=== PATIENT | female | born 1970 | race Caucasian/White ===

== ENCOUNTER 2016-12-09 06:22 | Day surgery (SDC) | payer MEDICARE, SELFPAY ==
[2016-12-09] MEDS ORDERED: Propofol 200 MG/20 ML SDV ONE (06:59)
[2016-12-09] MEDS ORDERED: Midazolam 1 MG/ML 2 ML SDV ONE ×2 (06:59→08:37)
[2016-12-09] MEDS ORDERED: fentaNYL 100 MCG/2 ML SDV ONE (06:59)
[2016-12-09] MEDS ORDERED: Dextrose 5%-Lactated Ringers 1,000 ML IV SCH (07:30)
[2016-12-09] MEDS ORDERED: Glycopyrrolate 0.2 MG/ML 2 ML SYRINGE IVPUSH ONE (08:00)
[2016-12-09] MEDS ORDERED: Ondansetron 4 MG/2 ML SDV ONE (08:37)
[2016-12-09] MEDS ORDERED: Pantoprazole 40 MG Vial IVPUSH ONE (09:00)
[2016-12-09 09:58] VITALS: BP 118/77
--- NOTE | 2016-12-11 10:50 | OR ---
DATE OF PROCEDURE: 12/09/2016 PREOPERATIVE DIAGNOSIS: Epigastric pain. POSTOPERATIVE DIAGNOSIS: Marked erosive gastritis. OPERATIVE PROCEDURE: Esophagogastroduodenoscopy with antral biopsies for CLOtest. ANESTHESIA: IV sedation. INDICATION FOR PROCEDURE: This is a 46-year-old female presenting with ongoing epigastric discomfort. She is status post previous Dima fundoplication. Recently, she has taken some [id number] Nexium, as well quite a bit in the way of Tums to try to control the symptoms. The plan is to proceed with upper GI endoscopy with biopsies as indicated. Potential risks including bleeding and perforation were discussed, and the patient wishes to proceed. DETAILS OF PROCEDURE: The patient was taken to the operating room and placed in a left lateral decubitus position. IV sedation was administered, after which the upper GI endoscope was passed orally through the length of the esophagus and the stomach with retroflexion view of the fundus, and thereafter through the pyloric channel and then to the junction of the third and fourth portions of the duodenum. The hypopharynx, larynx, and upper esophageal sphincter were unremarkable. The esophageal body was likewise normal with no dilation. The patient had an intact Dima fundoplication, and there was no gross inflammation at the esophagogastric junction. There was no stricturing or upward migration of the esophagogastric junction mucosal line. Within the stomach, the proximal stomach was unremarkable, other than for the Dima effect. However, as one passed the scope toward the antrum, the patient was noted to have quite intense gastritis. This included multiple erosions as well as 2 areas that were covered with fibrinous exudate measuring about 0.5 cm indicating these will be either large erosions or small superficial ulcers. The pyloric channel and visualized duodenum were unremarkable, other than for some mild duodenitis within the duodenal bulb. At this point, biopsies were obtained from the antrum and sent for CLOtest for H. pylori. Minimal bleeding from the biopsy sites was seen, and the procedure then concluded. There were no evident complications. The patient will be given Protonix 40 mg IV in the recovery room and then will be begun on Protonix 40 mg daily. She will be following up with Dr. Elkins in roughly 3 weeks. If the CLOtest comes back positive, we will contact the patient to initiate an anti-H. pylori regimen. Jasiel Chamorro MD /[id number]
== END 2016-12-09 10:15 | disposition home or self-care (01) ==
LOC: JP.SDS 06:22
PROVIDERS: ATTEND Surgery
DX: K29.60 Other gastritis without bleeding (principal); F41.9 Anxiety disorder, unspecified; F33.8 Other recurrent depressive disorders; Z98.890 Other specified postprocedural states; R73.03 Prediabetes; K90.89 Other intestinal malabsorption; E53.8 Deficiency of other specified B group vitamins; L30.9 Dermatitis, unspecified; G56.00 Carpal tunnel syndrome, unspecified upper limb; D64.9 Anemia, unspecified; G43.909 Migraine, unspecified, not intractable, without status migrainosus; Z87.442 Personal history of urinary calculi; Z90.710 Acquired absence of both cervix and uterus; Z90.49 Acquired absence of other specified parts of digestive tract; M47.897 Other spondylosis, lumbosacral region; Z79.899 Other long term (current) drug therapy
CPT/HCPCS: 43239; 87081; C9113; J2250; J2405; J2704; J3010; J7042

== ENCOUNTER 2017-06-22 22:13 | Emergency (ER) | payer MEDICARE, OTHER | END 2017-06-22 22:48 | disposition left against medical advice (07) | LOC: JP.ED 22:13 | DX: Z53.21 Procedure and treatment not carried out due to patient leaving prior to being seen by health care provider (principal) ==

== ENCOUNTER 2017-06-23 12:46 | Emergency (ER) | payer SELFPAY ==
[2017-06-23 13:37] VITALS: BP 136/79
--- NOTE | 2017-06-23 14:02 | EDM.PDOC ---
ED HPI GENERAL MEDICAL PROBLEM - General Chief Complaint: ENT Problem Stated Complaint: TOOTH PAIN Time Seen by Provider: 06/23/17 13:45 Source of Information: Reports: Patient History Limitations: Reports: No Limitations - History of Present Illness INITIAL COMMENTS - FREE TEXT/NARRATIVE: 46 yo female broke a tooth off early today. Called her dentist and his office is closed. Family doctor not available. Here for pain relief. No facial swelling or fever. 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) (OTC analgesia) Left Upper Tooth/Teeth Pain Score (Numeric/FACES): 8 - Related Data Allergies Allergy/AdvReac Type Severity Reaction Status Date / Time No Known Allergies Allergy Verified 06/23/17 13:38 Home Meds: Home Meds Citalopram [Citalopram Hbr] 10 mg PO DAILY 01/20/13 [History] Zolpidem [Ambien] 5 mg PO BEDTIME 01/26/14 [History] Lisinopril 10 mg PO DAILY 07/11/16 [History] Promethazine [Phenergan] 25 mg PO ASDIRECTED PRN 07/11/16 [History] SUMAtriptan Succinate [Imitrex] 100 mg PO ASDIRECTED 07/11/16 [History] Cyclobenzaprine HCl 5 mg PO DAILY 06/23/17 [History] Hydrocodone/Acetaminophen [[place] 5-325] 1 - 2 tab PO Q4H PRN #20 tablet [Rx] Pantoprazole 20 mg PO BIDAC 06/23/17 [History] Penicillin V Potassium 500 mg PO Q8HR #30 tab 06/23/17 [Rx] Past Medical History Cardiovascular History: Reports: Hypertension Gastrointestinal History: Reports: Cholelithiasis, GERD Genitourinary History: Reports: Renal Calculus 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: Reports: 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 Neurological History: Reports: Migraines Psychiatric History: Reports: Addiction, Anxiety, Depression Hematologic History: Reports: Blood Transfusion(s) - Infectious Disease History Infectious Disease History: Reports: Chicken Pox - Past Surgical History HEENT Surgical History: Reports: Tonsillectomy GI Surgical History: Reports: Cholecystectomy, EGD, Esophageal Dilatation, Dima Fundoplication Other GI Surgeries/Procedures: [place] Social & Family History - Family History Family Medical History: Noncontributory - Tobacco Use Smoking Status *Q: Current Every Day Smoker Years of Tobacco use: 7 Packs/Tins Daily: 0.5 Used Tobacco, but Quit: No Second Hand Smoke Exposure: No - Caffeine Use Caffeine Use: Reports: Soda - Alcohol Use Days Per Week of Alcohol Use: 1 Number of Drinks Per Day: 2 Total Drinks Per Week: 2 - Recreational Drug Use Recreational Drug Use: Yes Recreational Drug Type: Reports: Other (see below) Recreational Drug Use Frequency: Not Used In Over 2 Months ED ROS ENT - Review of Systems Review Of Systems: See Below Constitutional: Reports: No Symptoms HEENT: Reports: Dental Pain Respiratory: Reports: No Symptoms Cardiovascular: Reports: No Symptoms Skin: Reports: No Symptoms Neurological: Reports: No Symptoms ED EXAM, ENT - Physical Exam Exam: See Below Exam Limited By: No Limitations General Appearance: Alert, WD/WN, No Apparent Distress Eye Exam: Bilateral Eye: Normal Inspection Ears: Normal External Exam, Normal Canal Nose: Normal Inspection Mouth/Throat: Normal Inspection, Normal Lips, Normal Oropharynx, Dental Pain, Dental Tenderness, Dental Trauma (broken, decayed ). No: Gum Swelling, Lip Swelling, Pharyngeal Erythema, Teething, Throat Pain, Throat Swelling Head: Atraumatic, Normocephalic Neck: Normal Inspection, Supple, Non-Tender. No: Lymphadenopathy (R), Lymphadenopathy (L) Neurological: Alert, Oriented, CN II-XII Intact, Normal Cognition, No Motor/ Sensory Deficits Psychiatric: Normal Affect, Normal Mood Skin: Warm, Dry, Intact, Normal Color, No Rash Lymphatic: No Adenopathy Course - Vital Signs Last Recorded V/S: Last Vital Signs Temp 36.1 C 06/23/17 13:33 Pulse 95 06/23/17 13:33 Resp 16 06/23/17 13:33 BP 136/79 06/23/17 13:33 Pulse Ox 99 06/23/17 13:33 Departure - Departure Time of Disposition: 14:01 Disposition: Home, Self-Care 01 Condition: Good Clinical Impression: Dental caries, Dental caries extending into dentin, Pain, dental - Discharge Information Prescriptions: Penicillin V Potassium 500 mg PO Q8HR #30 tab Hydrocodone/Acetaminophen [Grandin 5-325] 1 - 2 tab PO Q4H PRN #20 tablet PRN Reason: Pain Referrals: Jon Elkins MD [Primary Care Provider] - Forms: ED Department Discharge Additional Instructions: Take Penicillin as directed until gone. Take ibuprofen 400 mg every 6 hrs with food for pain relief. Add either acetaminophen or Grandin for added pain relief. See your dentist malena. If you run out of pain medicine before your dentist appt , then see your family doctor for refills.
== END 2017-06-23 14:25 | disposition home or self-care (01) ==
LOC: JP.ED 12:46
DX: K02.9 Dental caries, unspecified (principal); I10 Essential (primary) hypertension; K21.9 Gastro-esophageal reflux disease without esophagitis; F17.210 Nicotine dependence, cigarettes, uncomplicated; Z79.899 Other long term (current) drug therapy
CPT/HCPCS: 99283

== ENCOUNTER 2017-07-16 16:43 | Emergency (ER) | payer SELFPAY ==
[2017-07-16 16:59] VITALS: BP 139/94
[2017-07-16] MEDS ORDERED: Acetaminophen/HYDROcodone 325-5 MG Tab PO ONE (18:16)
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
--- NOTE | 2017-07-17 10:53 | CR ---
Hand Comp Min 3V Lt INDICATION: trauma lt 4th 5th fingers COMPARISON: None FINDINGS: 3 views. No fracture, dislocation, or other acute bony abnormality. No joint space narr owing.
== END 2017-07-16 18:37 | disposition home or self-care (01) ==
LOC: JP.ED 16:43
DX: S60.042A Contusion of left ring finger without damage to nail, initial encounter (principal); S60.052A Contusion of left little finger without damage to nail, initial encounter; I10 Essential (primary) hypertension; K21.9 Gastro-esophageal reflux disease without esophagitis; F32.9 Major depressive disorder, single episode, unspecified; F41.9 Anxiety disorder, unspecified; F17.210 Nicotine dependence, cigarettes, uncomplicated; W23.0XXA Caught, crushed, jammed, or pinched between moving objects, initial encounter; Z79.899 Other long term (current) drug therapy; Z87.442 Personal history of urinary calculi
CPT/HCPCS: 73130; 99284; A9270

== ENCOUNTER 2017-09-27 21:28 | Emergency (ER) | payer SELFPAY ==
[2017-09-27 21:39] VITALS: BP 133/96
[2017-09-27] MEDS ORDERED: Ketorolac 30 MG/ML SDV IVPUSH ONE (21:53)
[2017-09-27] MEDS ORDERED: diphenhydrAMINE 50 MG/ML SDV IVPUSH ONE (21:53)
[2017-09-27] MEDS ORDERED: Lactated Ringers 1,000 ML IV ONE (21:53)
[2017-09-27] MEDS ORDERED: Prochlorperazine 10 MG/2 ML SDV IVPUSH ONE (21:54)
--- NOTE | 2017-09-27 22:00 | EDM.PDOC ---
ED HPI GENERAL MEDICAL PROBLEM - General Chief Complaint: Headache Stated Complaint: MIGRAINE Time Seen by Provider: 09/27/17 21:45 Source of Information: Reports: Patient, Old Records, RN History Limitations: Reports: No Limitations - History of Present Illness INITIAL COMMENTS - FREE TEXT/NARRATIVE: 47 yo female presents with a NANCE x 3 days. Has a pHx of migraine. Took Imitrex without relief. Has more nausea/vomiting with this NANCE than with most. No fever, head injury, or neuro deficits. No hematemesis. Also has R low back pain not associated with either injury, or dysuria. Has a pHx of kidney stones and this feels similar. Onset Date: 09/24/17 (Came on about as fast as her usual migraines.) Duration: Day(s): (3), Constant Location: Reports: Head, Back (R lower back) Quality: Reports: Ache Severity: Severe (Headache is severe, back pain moderate.) Improves with: Reports: None Worsens with: Reports: None Context: Reports: Other (Hx of migraine, kidney stones) Associated Symptoms: Reports: Headaches, Nausea/Vomiting. 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(s) (Imitrex 100 mg without relief.) Frontal Headache Pain Score (Numeric/FACES): 8 - Related Data Allergies Allergy/AdvReac Type Severity Reaction Status Date / Time No Known Allergies Allergy Verified 09/27/17 21:45 Home Meds: Home Meds Citalopram [Citalopram Hbr] 10 mg PO DAILY 01/20/13 [History] Zolpidem [Ambien] 5 mg PO BEDTIME 01/26/14 [History] Lisinopril 10 mg PO DAILY 07/11/16 [History] Promethazine [Phenergan] 25 mg PO ASDIRECTED PRN 07/11/16 [History] SUMAtriptan Succinate [Imitrex] 100 mg PO ASDIRECTED 07/11/16 [History] Pantoprazole 20 mg PO BIDAC 06/23/17 [History] Past Medical History Cardiovascular History: Reports: Hypertension Gastrointestinal History: Reports: Cholelithiasis, GERD Genitourinary History: Reports: Renal Calculus 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 Neurological History: Reports: Migraines Psychiatric History: Reports: Addiction, Anxiety, Depression Hematologic History: Reports: Blood Transfusion(s) - Infectious Disease History Infectious Disease History: Reports: Chicken Pox - Past Surgical History HEENT Surgical History: Reports: Tonsillectomy GI Surgical History: Reports: Cholecystectomy, EGD, Esophageal Dilatation, Dima Fundoplication Other GI Surgeries/Procedures: Nessin Social & Family History - Family History Family Medical History: Noncontributory - Tobacco Use Smoking Status *Q: Unknown Ever Smoked - Caffeine Use Caffeine Use: Reports: Coffee - Recreational Drug Use Recreational Drug Use: No ED ROS GENERAL - Review of Systems Review Of Systems: See Below Constitutional: Reports: No Symptoms HEENT: Reports: No Symptoms Respiratory: Reports: No Symptoms Cardiovascular: Reports: No Symptoms Endocrine: Reports: No Symptoms GI/Abdominal: Reports: Nausea, Vomiting. Denies: Black Stool, Bloody Stool, Constipation, Diarrhea, Distension, Melena : Reports: No Symptoms Musculoskeletal: Reports: Back Pain (R low back pain) Neurological: Reports: Headache. Denies: Numbness, Paresthesia, Syncope, Tingling, Trouble Speaking, Difficulty Walking, Weakness, Change in Speech, Gait Disturbance Psychiatric: Reports: No Symptoms - Physical Exam Exam: See Below Exam Limited By: No Limitations General Appearance: Alert, WD/WN, Mild Distress Eye Exam: Bilateral Eye: Normal Inspection, PERRL Ears: Normal External Exam, Normal Canal, Hearing Grossly Normal Nose: Normal Inspection, Normal Mucosa, No Blood Throat/Mouth: Normal Inspection, Normal Lips, Normal Oropharynx, Normal Voice, No Airway Compromise Head Exam: Atraumatic, Normocephalic Neck: Normal Inspection, Supple, Non-Tender Respiratory/Chest: No Respiratory Distress, Lungs Clear, Normal Breath Sounds, No Accessory Muscle Use Cardiovascular: Regular Rate, Rhythm, No Edema GI/Abdominal: Normal Bowel Sounds, Soft, Non-Tender, No Distention Neuro Exam (Abbreviated): Alert, Oriented, CN II-XII Intact, Normal Cognition, No Motor/Sensory Deficits Back Exam: Normal Inspection, Paraspinal Tenderness (R lumbar region.). No: CVA Tenderness (R), CVA Tenderness (L) Extremities: Normal Inspection, Normal Range of Motion, Non-Tender Psychiatric: Normal Affect, Normal Mood Skin Exam: Warm, Dry, Intact, Normal Color, No Rash Course - Vital Signs Text/Narrative:: Nausea gone, NANCE mostly gone after treatment. Wants to go home. Will call a friend for a ride. Last Recorded V/S: Last Vital Signs Temp 36.9 C 09/27/17 21:42 Pulse 95 09/27/17 21:42 Resp 16 09/27/17 21:42 BP 133/96 H 09/27/17 21:42 Pulse Ox 98 09/27/17 21:42 - Orders/Labs/Meds Orders: Active Orders 24 hr Category Date Time Status UA W/MICROSCOPIC [URIN] Stat Lab 09/27/17 21:54 Ordered Meds: Medications Discontinued Medications Generic Name Dose Route Start Last Admin Trade Name Freq PRN Reason Stop Dose Admin Diphenhydramine HCl 25 mg 09/27/17 21:53 09/27/17 22:13 Benadryl IVPUSH 09/27/17 21:54 25 mg ONETIME ONE Administration Lactated Ringer's 1,000 mls @ 1,000 mls/hr 09/27/17 21:53 09/27/17 22:05 Ringers, Lactated IV 09/27/17 22:52 1,000 mls/hr BOLUS ONE Administration Ketorolac Tromethamine 30 mg 09/27/17 21:53 09/27/17 22:10 Toradol IVPUSH 09/27/17 21:54 30 mg ONETIME ONE Administration Prochlorperazine Edisylate 10 mg 09/27/17 21:54 09/27/17 22:07 Compazine IVPUSH 09/27/17 21:55 10 mg ONETIME ONE Administration Departure - Departure Time of Disposition: 23:05 Disposition: Home, Self-Care 01 Condition: Good Clinical Impression: Migraine - Discharge Information Referrals: Jon Elkins MD [Primary Care Provider] - Forms: ED Department Discharge - My Orders Last 24 Hours: My Active Orders 09/27/17 21:54 UA W/MICROSCOPIC [URIN] Stat - Assessment/Plan Last 24 Hours: My Active Orders 09/27/17 21:54 UA W/MICROSCOPIC [URIN] Stat
== END 2017-09-27 23:06 | disposition home or self-care (01) ==
LOC: JP.ED 21:28
DX: G43.909 Migraine, unspecified, not intractable, without status migrainosus (principal); I10 Essential (primary) hypertension; Z79.899 Other long term (current) drug therapy
CPT/HCPCS: 81001; 96361; 96374; 96375; 99284; J0780; J1200; J1885; J7120

== ENCOUNTER 2018-01-14 23:57 | Emergency (ER) | payer SELFPAY ==
[2018-01-15 00:34] VITALS: BP 124/92
[2018-01-15] MEDS ORDERED: HYDROmorphone 1 MG/ML Syringe IM ONE (00:40)
--- NOTE | 2018-01-15 00:46 | EDM.PDOC ---
ED HPI GENERAL MEDICAL PROBLEM - General Chief Complaint: General Stated Complaint: BROKEN TEETH TOP LEFT AND RIGHT Time Seen by Provider: 01/15/18 00:35 Source of Information: Reports: Patient, RN Notes Reviewed History Limitations: Reports: No Limitations - History of Present Illness INITIAL COMMENTS - FREE TEXT/NARRATIVE: 47-year-old female presents emergency department today following trauma at home she slipped in her bathroom and hit her front teeth breaking 3 of them she does not have any of the teeth with her her biggest issue is pain Tooth/Teeth Pain Score (Numeric/FACES): 8 - Related Data Allergies Allergy/AdvReac Type Severity Reaction Status Date / Time No Known Allergies Allergy Verified 01/15/18 00:25 Home Meds: Home Meds Citalopram [Citalopram Hbr] 20 mg PO DAILY 01/20/13 [History] Zolpidem [Ambien] 5 mg PO BEDTIME 01/26/14 [History] Lisinopril 10 mg PO DAILY 07/11/16 [History] Promethazine [Phenergan] 25 mg PO ASDIRECTED PRN 07/11/16 [History] SUMAtriptan Succinate [Imitrex] 100 mg PO ASDIRECTED 07/11/16 [History] Past Medical History HEENT History: Reports: Impaired Vision Cardiovascular History: Reports: Hypertension Gastrointestinal History: Reports: Cholelithiasis, GERD Genitourinary History: Reports: Renal Calculus 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 Neurological History: Reports: Migraines Psychiatric History: Reports: Addiction, Anxiety, Depression Hematologic History: Reports: Blood Transfusion(s) - Infectious Disease History Infectious Disease History: Reports: Chicken Pox - Past Surgical History HEENT Surgical History: Reports: Tonsillectomy GI Surgical History: Reports: Cholecystectomy, EGD, Esophageal Dilatation, Dima Fundoplication Other GI Surgeries/Procedures: Nessin Female Surgical History: Reports: Hysterectomy, Salpingo-Oophorectomy Social & Family History - Family History Family Medical History: Noncontributory - Tobacco Use Smoking Status *Q: Current Every Day Smoker Years of Tobacco use: 15 Packs/Tins Daily: 0.3 - Caffeine Use Caffeine Use: Reports: None - Recreational Drug Use Recreational Drug Use: No ED ROS GENERAL - Review of Systems Review Of Systems: See Below Constitutional: Reports: No Symptoms HEENT: Reports: Dental Pain ED EXAM, GENERAL - Physical Exam Exam: See Below Free Text/Narrative:: Mouth mucosa is moist and pink no erythema or exudate noted in soft palate tongue is midline uvula is midline she does have dental trauma broken teeth 01/29 Exam Limited By: No Limitations General Appearance: Alert, WD/WN, No Apparent Distress Throat/Mouth: No Airway Compromise Respiratory/Chest: No Respiratory Distress Course - Vital Signs Last Recorded V/S: Last Vital Signs Temp 96.8 F 01/15/18 00:34 Pulse 124 H 01/15/18 00:34 Resp 18 01/15/18 00:34 BP 124/92 H 01/15/18 00:34 Pulse Ox 98 01/15/18 00:34 - Orders/Labs/Meds Orders: Active Orders 24 hr Category Date Time Status HYDROmorphone [Dilaudid] Med 01/15/18 00:40 Once 1 mg IM ONETIME ONE Departure - Departure Time of Disposition: 00:44 Disposition: Home, Self-Care 01 Condition: Fair Clinical Impression: Broken teeth Qualifiers: Encounter type: initial encounter Fracture type: open Qualified Code(s): S02.5XXB - Fracture of tooth (traumatic), initial encounter for open fracture - Discharge Information Referrals: Jon Elkins MD [Primary Care Provider] - Additional Instructions: Please contact dentistry in the morning, start the prophylactic antibiotics of Augmentin, use Percocet as needed for pain control - My Orders Last 24 Hours: My Active Orders 01/15/18 00:40 HYDROmorphone [Dilaudid] 1 mg IM ONETIME ONE - Assessment/Plan Last 24 Hours: My Active Orders 01/15/18 00:40 HYDROmorphone [Dilaudid] 1 mg IM ONETIME ONE Plan: Assessment Acuity = acute Site and laterality = dental trauma teeth 01/29/11 Etiology = secondary to a fall Manifestations = none Location of injury = Home Lab values = none Plan Given 1 mg Dilaudid IM followed by prescription for Percocet 5/325 one tablet by mouth every 6 hours when necessary total #10 she will contact her dentist in the morning also placed on prophylactic antibiotics Augmentin 875 by mouth twice a day 7 days, she will contact dentistry in the morning This note was dictated using [employer] voice recognition software please call with any questions on syntax or grammar.
== END 2018-01-15 00:55 | disposition home or self-care (01) ==
LOC: JP.ED 23:57
DX: S02.5XXB Fracture of tooth (traumatic), initial encounter for open fracture (principal); Z79.899 Other long term (current) drug therapy; F17.210 Nicotine dependence, cigarettes, uncomplicated; W01.10XA Fall on same level from slipping, tripping and stumbling with subsequent striking against unspecified object, initial encounter; Y92.002 Bathroom of unspecified non-institutional (private) residence as the place of occurrence of the external cause
CPT/HCPCS: 96372; 99283; J1170

== ENCOUNTER 2018-02-11 15:50 | Emergency (ER) | payer OTHER ==
[2018-02-11 16:12] VITALS: BP 119/88
--- NOTE | 2018-02-11 16:40 | EDM.PDOC ---
ED HPI GENERAL MEDICAL PROBLEM - General Chief Complaint: ENT Problem Time Seen by Provider: 02/11/18 16:06 Source of Information: Reports: Patient History Limitations: Reports: No Limitations - History of Present Illness INITIAL COMMENTS - FREE TEXT/NARRATIVE: 47 yo presents with front upper tooth pain. She has had multiple cavities and broken teeth for many months and pain worsening. pt states she has been unable to afford dental care needed. She has been alternating tyl and ibuprofen without relief of pain. She denies fever or chills. - Related Data Allergies Allergy/AdvReac Type Severity Reaction Status Date / Time No Known Allergies Allergy Verified 01/15/18 00:25 Home Meds: Home Meds Citalopram [Citalopram Hbr] 20 mg PO DAILY 01/20/13 [History] Zolpidem [Ambien] 5 mg PO BEDTIME 01/26/14 [History] Lisinopril 10 mg PO DAILY 07/11/16 [History] Promethazine [Phenergan] 25 mg PO ASDIRECTED PRN 07/11/16 [History] SUMAtriptan Succinate [Imitrex] 100 mg PO ASDIRECTED 07/11/16 [History] Past Medical History HEENT History: Reports: Impaired Vision Cardiovascular History: Reports: Hypertension Gastrointestinal History: Reports: Cholelithiasis, GERD Genitourinary History: Reports: Renal Calculus 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: 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 Neurological History: Reports: Migraines Psychiatric History: Reports: Addiction, Anxiety, Depression Hematologic History: Reports: Blood Transfusion(s) - Infectious Disease History Infectious Disease History: Reports: Chicken Pox - Past Surgical History HEENT Surgical History: Reports: Tonsillectomy GI Surgical History: Reports: Cholecystectomy, EGD, Esophageal Dilatation, Dima Fundoplication Other GI Surgeries/Procedures: Nessin Female Surgical History: Reports: Hysterectomy, Salpingo-Oophorectomy Social & Family History - Family History Family Medical History: Noncontributory - Tobacco Use Smoking Status *Q: Current Every Day Smoker Years of Tobacco use: 15 Packs/Tins Daily: 0.5 - Caffeine Use Caffeine Use: Reports: None ED ROS ENT - Review of Systems Review Of Systems: See Below Constitutional: Denies: Fever, Chills, Fatigue HEENT: Reports: Dental Pain Respiratory: Denies: Shortness of Breath, Wheezing Cardiovascular: Denies: Chest Pain ED EXAM, ENT - Physical Exam Exam: See Below Exam Limited By: No Limitations General Appearance: Alert, WD/WN, No Apparent Distress Ears: Normal External Exam, Normal Canal, Hearing Grossly Normal, Normal TMs Nose: Normal Inspection, Normal Mucousa Mouth/Throat: Dental Pain, Dental Tenderness, Other (extensive dental caries with broken from upper teeth, mild erythema and edema, gingivitis) Head: Atraumatic, Normocephalic Neck: Supple, Lymphadenopathy (R), Lymphadenopathy (L) Respiratory/Chest: No Respiratory Distress Course - Vital Signs Last Recorded V/S: Last Vital Signs Temp 35.8 C 02/11/18 16:11 Pulse 85 02/11/18 16:11 Resp 14 02/11/18 16:11 BP 119/88 02/11/18 16:11 Pulse Ox 98 02/11/18 16:11 - Re-Assessments/Exams Free Text/Narrative Re-Assessment/Exam: 02/11/18 16:43 pt refused Ketoralac injection. pt given information to contact [facility] dentist. Pt refuses referral to [facility] dentistry. VERTICA ARCHITECT ran on pt and placed in chart Departure - Departure Time of Disposition: 16:35 Disposition: Home, Self-Care 01 Condition: Fair Clinical Impression: Dental caries Broken teeth Qualifiers: Encounter type: subsequent encounter Fracture type: closed Fracture healing: with delayed healing Qualified Code(s): S02.5XXG - Fracture of tooth (traumatic) , subsequent encounter for fracture with delayed healing - Discharge Information *PRESCRIPTION DRUG MONITORING PROGRAM REVIEWED*: Yes *COPY OF PRESCRIPTION DRUG MONITORING REPORT IN PATIENT CHACHO: Yes Referrals: Jon Elkins MD [Primary Care Provider] - Additional Instructions: You need to see a dentist [facility] may be able to offer you help [place] as needed for severe pain Amoxicillin 500 mg twice daily for 10 days (she has antibiotic at home) Ibuprofen 400-600 mg every 6 hours for inflammation reduction
== END 2018-02-11 16:51 | disposition home or self-care (01) ==
LOC: JP.ED 15:50
DX: K02.9 Dental caries, unspecified (principal); S02.5XXG Fracture of tooth (traumatic), subsequent encounter for fracture with delayed healing; F17.210 Nicotine dependence, cigarettes, uncomplicated; Z79.899 Other long term (current) drug therapy; X58.XXXD Exposure to other specified factors, subsequent encounter
CPT/HCPCS: 99283

== ENCOUNTER 2018-07-06 15:33 | Emergency (ER) | payer OTHER ==
[2018-07-06 15:46] VITALS: BP 142/105
--- NOTE | 2018-07-06 16:30 | EDM.PDOC ---
ED HPI GENERAL MEDICAL PROBLEM - General Chief Complaint: ENT Problem Stated Complaint: TOOTH ACHE Time Seen by Provider: 07/06/18 16:29 Source of Information: Reports: Patient History Limitations: Reports: No Limitations - History of Present Illness INITIAL COMMENTS - FREE TEXT/NARRATIVE: pt arrived with pain in the rt lower gum line. She has had a tooth extracted about 1 month ago. She now has another tooth which is cracked and needs to be extracted. She has multiple carrious teeth/ Onset: Other (pt has been having pain for several days. ) Duration: Hour(s): Location: Reports: Face Associated Symptoms: Reports: No Other Symptoms - Related Data Allergies Allergy/AdvReac Type Severity Reaction Status Date / Time No Known Allergies Allergy Verified 07/06/18 15:46 Home Meds: Home Meds Citalopram [Citalopram Hbr] 20 mg PO DAILY 01/20/13 [History] Zolpidem [Ambien] 5 mg PO BEDTIME 01/26/14 [History] Lisinopril 10 mg PO DAILY 07/11/16 [History] SUMAtriptan Succinate [Imitrex] 100 mg PO ASDIRECTED 07/11/16 [History] Amoxicillin 500 mg PO TID 05/14/18 [History] Hydrocodone/Acetaminophen [Hydrocodon-Acetaminophen 5-325] 07/06/18 [History] Past Medical History HEENT History: Reports: Impaired Vision Cardiovascular History: Reports: Hypertension Gastrointestinal History: Reports: Cholelithiasis, GERD Genitourinary History: Reports: Renal Calculus 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 Neurological History: Reports: Migraines Psychiatric History: Reports: Addiction, Anxiety, Depression Hematologic History: Reports: Blood Transfusion(s) - Infectious Disease History Infectious Disease History: Reports: Chicken Pox - Past Surgical History HEENT Surgical History: Reports: Oral Surgery, Tonsillectomy Cardiovascular Surgical History: Reports: None GI Surgical History: Reports: Cholecystectomy, EGD, Esophageal Dilatation, Dima Fundoplication Other GI Surgeries/Procedures: Nessin Female Surgical History: Reports: Hysterectomy, Salpingo-Oophorectomy Neurological Surgical History: Reports: None Social & Family History - Family History Family Medical History: Noncontributory - Tobacco Use Smoking Status *Q: Current Every Day Smoker Years of Tobacco use: 30 Packs/Tins Daily: 0.2 - Caffeine Use Caffeine Use: Reports: Soda ED ROS ENT - Review of Systems Review Of Systems: See Below Constitutional: Reports: No Symptoms HEENT: Reports: Dental Pain Respiratory: Reports: No Symptoms Cardiovascular: Reports: No Symptoms Endocrine: Reports: No Symptoms GI/Abdominal: Reports: No Symptoms : Reports: No Symptoms ED EXAM, ENT - Physical Exam Exam: See Below Text/Narrative:: pt is having severe dental pain in the rt lower gum line. She has a tooth that is cracked to the root. Exam Limited By: No Limitations General Appearance: Alert, Severe Distress Ears: Normal External Exam Nose: Normal Inspection Mouth/Throat: Other ( several carrious teeth in the rt lower gum line. ) Head: Atraumatic Neck: Normal Inspection Course - Vital Signs Last Recorded V/S: Last Vital Signs Temp 35.8 C 07/06/18 15:51 Pulse 115 H 07/06/18 15:51 Resp 16 07/06/18 15:51 BP 142/105 H 07/06/18 15:51 Pulse Ox 98 07/06/18 15:51 Departure - Departure Time of Disposition: 16:29 Disposition: Home, Self-Care 01 Condition: Fair Clinical Impression: Pain, dental - Discharge Information Referrals: Jon Elkins MD [Primary Care Provider] - Forms: ED Department Discharge Care Plan Goals: Try to get in earlier to the oral surgeonjosseline 5/325 q6h prn for pain.
== END 2018-07-06 16:37 | disposition home or self-care (01) ==
LOC: JP.ED 15:33
DX: K08.89 Other specified disorders of teeth and supporting structures (principal); I10 Essential (primary) hypertension; F41.9 Anxiety disorder, unspecified; F32.9 Major depressive disorder, single episode, unspecified; F17.210 Nicotine dependence, cigarettes, uncomplicated; Z79.899 Other long term (current) drug therapy
CPT/HCPCS: 99283

== ENCOUNTER 2018-07-28 14:22 | Emergency (ER) | payer OTHER ==
--- NOTE | 2018-07-28 14:53 | EDM.PDOC ---
ED HPI GENERAL MEDICAL PROBLEM - General Chief Complaint: ENT Problem Stated Complaint: JAW PAIN Time Seen by Provider: 07/28/18 14:44 Source of Information: Reports: Patient, RN Notes Reviewed History Limitations: Reports: No Limitations - History of Present Illness INITIAL COMMENTS - FREE TEXT/NARRATIVE: 48-year-old female presents to the emergency department day complaint of jaw pain with facial swelling she has been undergoing some dental surgery with tooth extraction has had difficulty with infection on the right side of her lower jaw, she is set to follow-up with dentistry on Monday of this week was prescribed hydrocodone and clindamycin unfortunately she could not afford the clindamycin Right Lower Jaw Pain Score (Numeric/FACES): 7 - Related Data Allergies Allergy/AdvReac Type Severity Reaction Status Date / Time No Known Allergies Allergy Verified 07/28/18 14:33 Home Meds: Home Meds Citalopram [Citalopram Hbr] 20 mg PO DAILY 01/20/13 [History] Zolpidem [Ambien] 5 mg PO BEDTIME 01/26/14 [History] Lisinopril 10 mg PO DAILY 07/11/16 [History] SUMAtriptan Succinate [Imitrex] 100 mg PO ASDIRECTED 07/11/16 [History] Amoxicillin 500 mg PO TID 05/14/18 [History] Hydrocodone/Acetaminophen [Hydrocodon-Acetaminophen 5-325] 1 tab PO DAILY PRN [History] Past Medical History HEENT History: Reports: Impaired Vision, Other (See Below) Other HEENT History: dental surgery Cardiovascular History: Reports: Hypertension Gastrointestinal History: Reports: Cholelithiasis, GERD Genitourinary History: Reports: Renal Calculus 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 Neurological History: Reports: Migraines Psychiatric History: Reports: Addiction, Anxiety, Depression Hematologic History: Reports: Blood Transfusion(s) - Infectious Disease History Infectious Disease History: Reports: Chicken Pox - Past Surgical History Head Surgeries/Procedures: Reports: None HEENT Surgical History: Reports: Oral Surgery, Tonsillectomy Cardiovascular Surgical History: Reports: None GI Surgical History: Reports: Cholecystectomy, EGD, Esophageal Dilatation, Dima Fundoplication Other GI Surgeries/Procedures: Nessin Female Surgical History: Reports: Hysterectomy, Salpingo-Oophorectomy Neurological Surgical History: Reports: None Dermatological Surgical History: Reports: None Social & Family History - Family History Family Medical History: Noncontributory - Tobacco Use Smoking Status *Q: Current Every Day Smoker Years of Tobacco use: 20 Packs/Tins Daily: 0.5 - Caffeine Use Caffeine Use: Reports: Soda - Recreational Drug Use Recreational Drug Use: No ED ROS ENT - Review of Systems Review Of Systems: See Below Constitutional: Denies: Fever, Chills HEENT: Reports: Dental Pain, Other (Facial pain and swelling) ED EXAM, ENT - Physical Exam Exam: See Below Text/Narrative:: Mouth mucosa is moist and pink dentition is poor she does have a broken tooth # 27 there is tenderness around this area as well as facial swelling lower jaw Exam Limited By: No Limitations General Appearance: Alert, WD/WN, No Apparent Distress Neck: Normal Inspection, Supple, Non-Tender, Full Range of Motion Course - Vital Signs Last Recorded V/S: Last Vital Signs Temp 97.2 F 07/28/18 14:38 Pulse 111 H 07/28/18 14:38 Resp 16 07/28/18 14:38 BP 138/99 H 07/28/18 14:38 Pulse Ox 97 07/28/18 14:38 Departure - Departure Time of Disposition: 14:52 Disposition: Home, Self-Care 01 Condition: Fair Clinical Impression: Pain, dental, Dental abscess - Discharge Information Referrals: Jon Elkins MD [Primary Care Provider] - Additional Instructions: Take full course of antibiotics, use hydrocodone as needed for pain control, please contact your dentist on Monday, call return to the emergency department worsening of symptoms - Assessment/Plan Plan: Assessment Acuity = acute Site and laterality = dental abscess Etiology = tooth fracture Manifestations = pain, edema Location of injury = Home Lab values = none Plan Prescription written for Augmentin 875 by mouth twice a day 10 days, hydrocodone 5/325 one tab by mouth every 4-6 hours when necessary total #10 she will contact her dentist in the Monday This note was dictated using TEXbase voice recognition software please call with any questions on syntax or grammar.
[2018-07-28 15:19] VITALS: BP 138/99
== END 2018-07-28 15:03 | disposition home or self-care (01) ==
LOC: JP.ED 14:22
DX: K04.7 Periapical abscess without sinus (principal); I10 Essential (primary) hypertension; K21.9 Gastro-esophageal reflux disease without esophagitis; F17.210 Nicotine dependence, cigarettes, uncomplicated; Z79.899 Other long term (current) drug therapy
CPT/HCPCS: 99283

== ENCOUNTER 2018-09-28 13:11 | Emergency (ER) | payer OTHER, SELFPAY ==
[2018-09-28 14:57] VITALS: BP 120/87
[2018-09-28] MEDS: Bupivacaine 0.5%/EPINEPHrine 1:200,000 1.8 ML Cartridge INJECT ONE (15:20)
--- NOTE | 2018-09-28 15:22 | EDM.PDOC ---
ED HPI GENERAL MEDICAL PROBLEM - General Chief Complaint: General Stated Complaint: TOOTHACHE Time Seen by Provider: 09/28/18 15:00 Source of Information: Reports: Patient History Limitations: Reports: No Limitations - History of Present Illness INITIAL COMMENTS - FREE TEXT/NARRATIVE: Patient present with concerns regarding right upper anterior tooth pain. Tooth pain started today after biting into sandwich and has progressively worsened. Pain as a constant pressure and stabling pain that worsens with eating, chewing , hot or cold exposure. Patient admits to foul taste or drainage from painful tooth/teeth. Patient has not noted any facial swelling and along the gum line. Patient is concerned regarding a chip in the effected tooth. Patient has attempted to contacted a dentist for follow-up appointment in the near future. She is working with a dentist to pull nuerous teeth as she can afford the treatment and planning to obtain dentures. Patient does have a dentist appointment. Patient has taken any tylenol 1,000mg and Ibuprofen 400 mg OTC some medications to help with pain and/or swelling. The OTC medications minimally improved symptoms. Patient denies any fever, chills, sweats, and shortness of breath, difficulty breathing or swallowing, chest pain, diarrhea, constipation. No pain or burning with urination. No upper respiratory tract symptoms. She is very tearful regarding her oral health. She states the pain radiated into her right frontal sinus which is worse with exertional activities. 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 - Related Data Allergies Allergy/AdvReac Type Severity Reaction Status Date / Time No Known Allergies Allergy Verified 07/28/18 14:33 Home Meds: Home Meds Citalopram [Citalopram Hbr] 20 mg PO DAILY 01/20/13 [History] Zolpidem [Ambien] 5 mg PO BEDTIME 01/26/14 [History] Lisinopril 10 mg PO DAILY 07/11/16 [History] SUMAtriptan Succinate [Imitrex] 100 mg PO ASDIRECTED 07/11/16 [History] Acetaminophen/HYDROcodone [Harrison 325-5 MG] 1 - 2 tab PO Q6H PRN 3 Days #6 tab [Rx] Amoxicillin 500 mg PO TID 10 Days #30 capsule 09/28/18 [Rx] Naproxen [Naprosyn] 500 mg PO Q8HR PRN #30 tablet 09/28/18 [Rx] Past Medical History HEENT History: Reports: Impaired Vision, Other (See Below) Other HEENT History: dental surgery Cardiovascular History: Reports: Hypertension Gastrointestinal History: Reports: Cholelithiasis, GERD Genitourinary History: Reports: Renal Calculus 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 Neurological History: Reports: Migraines Psychiatric History: Reports: Addiction, Anxiety, Depression Hematologic History: Reports: Blood Transfusion(s) - Infectious Disease History Infectious Disease History: Reports: Chicken Pox - Past Surgical History Head Surgeries/Procedures: Reports: None HEENT Surgical History: Reports: Oral Surgery, Tonsillectomy Cardiovascular Surgical History: Reports: None GI Surgical History: Reports: Cholecystectomy, EGD, Esophageal Dilatation, Dima Fundoplication Other GI Surgeries/Procedures: Nessin Female Surgical History: Reports: Hysterectomy, Salpingo-Oophorectomy Neurological Surgical History: Reports: None Dermatological Surgical History: Reports: None Social & Family History - Family History Family Medical History: Noncontributory - Tobacco Use Smoking Status *Q: Current Every Day Smoker Years of Tobacco use: 8 Packs/Tins Daily: 0.2 Used Tobacco, but Quit: No Second Hand Smoke Exposure: No - Caffeine Use Caffeine Use: Reports: Soda - Recreational Drug Use Recreational Drug Use: No ED ROS GENERAL - Review of Systems Review Of Systems: ROS reveals no pertinent complaints other than HPI. ED EXAM, GENERAL - Physical Exam Exam: See Below Exam Limited By: No Limitations General Appearance: Alert Throat/Mouth: Normal Inspection, Normal Lips, Normal Gums, Normal Oropharynx, Normal Voice, Other (poor oral health with nuerous chipped and unhealth teeth. Right anterior superior incisor/permolar is painful with slight gigival swelling and erythema. No palpation abscess noted ). No: Normal Teeth (Female) Exam: Deferred Rectal (Female) Exam: Deferred Extremities: Normal Inspection, Normal Range of Motion Psychiatric: Normal Affect, Normal Mood, Tearful ED GENERAL MEDICAL PROCEDURES - Additional/Other Procedure(s) Other (Free Text) Procedure(s): ER Procedures: Risks, benefits, complications and alternatives (including doing nothing) regarding this procedure were discussed. Patient understood these , voiced understanding, and wished to proceed. Time out completed to ensure correct procedure on the correct patient and correct site. Apical UPPER ANTERIOR NERVE BLOCK Rightside Local apical block was performed with 0.5% Bupivacaine: Total volume 1.8 cc. Landmarks palpated 30 gauge needle used to place anesthetic. Patient tolerated well was offered water to swish and swallow without difficulty. Patient was monitored in the department for 15-30 minutes. Patient had no adverse reactions and pain is improved at time of discharge. Course - Vital Signs Last Recorded V/S: Last Vital Signs Temp 36.1 C 09/28/18 14:44 Pulse 110 H 09/28/18 14:44 Resp 16 09/28/18 14:44 BP 120/87 09/28/18 14:44 Pulse Ox - Orders/Labs/Meds Meds: Medications Discontinued Medications Generic Name Dose Route Start Last Admin Trade Name Freq PRN Reason Stop Dose Admin Bupivacaine HCl/Epinephrine Bitart 1.8 ml 09/28/18 15:14 09/28/18 15:20 Marcaine 0.5%/Epinephrine 1:200,000 INJECT 09/28/18 15:15 1.8 ml ONETIME ONE Administration Departure - Departure Time of Disposition: 15:11 Disposition: Home, Self-Care 01 Condition: Good Clinical Impression: Pain, dental - Discharge Information Prescriptions: Naproxen [Naprosyn] 500 mg PO Q8HR PRN #30 tablet PRN Reason: Pain Acetaminophen/HYDROcodone [Harrison 325-5 MG] 1 - 2 tab PO Q6H PRN 3 Days #6 tab PRN Reason: Pain (Severe 7-10) Amoxicillin 500 mg PO TID 10 Days #30 capsule Instructions: Dental Abscess, [id number] Referrals: Jon Elkins MD [Primary Care Provider] - Forms: ED Department Discharge Additional Instructions: Dentist of choice Care Plan Goals: DENTAL 1. ANITBIOTIC DIRECTED. Antibiotics (Amoxicillin/PCN or Clindamycin). 2. IBUPROFEN or NAPROXEN WITH FOOD DIRECTED FOR INFLAMMATION, PAIN AND SWELLING. 3. BUPIVACAINE DENTAL BLOCK WILL LAST UP TO 48 HOURS AND MAY NOT COME BACK IF TAKING ANTIBIOTIC AND IBUPROFEN/NAPROXEN. 4. Senodyne tooth paste every 30minutes to help with pain. 5. Tylenol (Acetaminophen) every 6-8 hours for mild to moderate pain 6. CALL YOUR DENTIST OF CHOICE FOR AVAILABLE APPOINTMENT. IF YOU DO NOT HAVE A DENTIST, YOU WILL BE GIVEN THE PHONE NUMBER FOR LOCAL ACTIVATED SLUDGE OPERATOR DENTIST. 7. Return for repeat evaluation if increase, changes, new or worsen symptoms. Discharge Instructions Dental Pain You have been seen today for a toothache. Your pain may be caused by an exposed nerve, an infection (pulpitis), a root abscess (pocket of pus), or other problems. You will need to see a dentist for a solution to your tooth problem. Emergency Department care is only to help control your problem until you can see a dentist; we cannot provide complete dental care. Today, we did not find any sign that your toothache was caused by any dangerous or life-threatening condition, but sometimes symptoms develop over time and cannot be found during an emergency visit, so it is very important that you follow up with your dentist. Please follow-up as instructed by your provider today. Return to the clinic or Local Emergency Department if: You develop a new fever over 100.4F. You cannot open your mouth normally, cannot move your tongue well, or cannot swallow. You have new or increased swelling of your face or neck. You develop drainage of pus or foul smelling material from around your tooth. What can I do to help myself? Take any antibiotic the provider may have prescribed for you today. Avoid very hot or very cold foods as both can cause pain. Make an appointment to see a dentist as soon as possible. Dentists are generally not on-staff at hospitals so we cannot refer to you to dentist but we may be able to provide a list of dental clinics to help you. If you were given a prescription for medicine here today, be sure toread all of the information (including the package insert) that comes with your prescription. This will include important information about the medicine, its side effects, and any warnings that you need to know about. The pharmacist who fills the prescription can provide more information and answer questions you may have about the medicine. If you have questions or concerns that the pharmacist cannot address, please call or return to the Emergency Department. Remember that you can always come back to the Emergency Department if you are not able to see your regular provider in the amount of time listed above, if you get any new symptoms, or if there is anything that worries you. - Problem List & Annotations (1) Pain, dental SNOMED Code(s): 58268422 Code(s): K08.89 - OTHER SPECIFIED DISORDERS OF TEETH AND SUPPORTING STRUCTURES Status: Resolved Onset Date: ~09/28/18 - Problem List Review Problem List Initiated/Reviewed/Updated: Yes
== END 2018-09-28 15:56 | disposition home or self-care (01) ==
LOC: JP.ED 13:11
DX: K08.89 Other specified disorders of teeth and supporting structures (principal); I10 Essential (primary) hypertension; F41.9 Anxiety disorder, unspecified; F32.9 Major depressive disorder, single episode, unspecified; K21.9 Gastro-esophageal reflux disease without esophagitis; F17.210 Nicotine dependence, cigarettes, uncomplicated; Z79.899 Other long term (current) drug therapy
CPT/HCPCS: 64400; 99282; J3490

== ENCOUNTER 2018-12-04 06:53 | Day surgery (SDC) | payer MEDICARE, OTHER, SELFPAY ==
[2018-12-04] MEDS ORDERED: Propofol 200 MG/20 ML SDV ONE (06:58)
[2018-12-04] MEDS ORDERED: fentaNYL 100 MCG/2 ML SDV ONE (06:58)
[2018-12-04] MEDS ORDERED: Midazolam 1 MG/ML 2 ML SDV ONE (06:58)
[2018-12-04] MEDS ORDERED: Dextrose 5%-Lactated Ringers 1,000 ML IV SCH (07:15)
[2018-12-04] MEDS ORDERED: Glycopyrrolate 0.2 MG/ML 2 ML SDV IVPUSH ONE (07:15)
[2018-12-04] MEDS ORDERED: Pantoprazole 40 MG Vial IVPUSH ONE (09:14)
[2018-12-04 09:22] VITALS: BP 87/58; PULSE 102
--- NOTE | 2018-12-10 11:37 | OR ---
DATE OF PROCEDURE: 12/04/2018 PREOPERATIVE DIAGNOSES: 1. Nausea and dysphagia status post previous Dima fundoplication. 2. Loose bowel movements or diarrhea after eating with occasional blood in stool. POSTOPERATIVE DIAGNOSES: 1. Intact Dima fundoplication with no evident esophageal inflammation or stricturing. 2. Mild antral gastritis and duodenitis. 3. Normal colonoscopic examination. OPERATIVE PROCEDURE: 1. Esophagogastroduodenoscopy with antral biopsies for CLOtest. 2. Flexible colonoscopy with collection of stool for microbiologic workup. ANESTHESIA: IV sedation. INDICATION FOR PROCEDURE: The patient presents with some intermittent nausea and reported vomiting along with some dysphagia. She suffered status post previous Dima fundoplication. She also complains of some diarrhea type symptoms with some intermittent blood in her stool but the diarrhea seeming to be starting up after eating. Plan is to proceed with an upper and lower endoscopy with biopsies and a polypectomy as indicated as well as possible esophageal dilation. Potential risks of the procedure including bleeding and perforation were discussed, and the patient wishes to proceed. DETAILS OF PROCEDURE: The patient was taken to the operating room and placed in a left lateral decubitus position. IV sedation was administered after which the upper GI endoscope was passed orally through the length of the esophagus and the stomach with retroflexion view of the fundus and thereafter through the pyloric channel into the junction of the third and fourth portions of the duodenum. Findings included a normal hypopharynx, larynx, upper esophageal sphincter, esophageal body, and at the EG junction, the patient had an intact Dima. The area of passing through the Dima fundoplication was quite wide open, and there was no significant gross inflammation of the distal esophagus. The level of the esophagogastric junction was 40 cm from the incisors indicating no recurrence of a hiatal hernia. Within the stomach, retroflexion confirmed appropriate appearing Dima effect. Within the antrum, there was some patchy redness, but no erosions or ulcers, and the visualized pyloric channel and duodenum were otherwise unremarkable. At this point, biopsies were obtained from the antrum and sent for CLOtest for H. pylori. Minimal bleeding from the biopsy sites was seen, and the scope was then withdrawn. Attention was then taken to the colonoscopy. Initial digital rectal exam was performed and was unremarkable. Colonoscope was passed into the rectum. The patient had normal appearing hemorrhoidal columns. The scope was then eventually passed to the cecum. There was only a scant amount of liquid stool present. The stool was collected and sent for microbiologic workup. Otherwise, there were no abnormalities in terms of no diverticular disease. No areas of colitis. No polyps or other signs of neoplasia. Scope was then withdrawn. Procedure then concluded. The plan will be to start the patient on Protonix 40 mg a day and also Zofran 4 mg ODT, #30 with 1 refill. Dose of Zofran to be taken on a p.r.n. basis, and the patient should be following up with Dr. Elkins in about 2 weeks. If the patient continues to have the postprandial loose bowel movements, this may be a dumping syndrome related to the Dima fundoplication, and dietary consultation might be helpful at that point. Jasiel Chamorro MD /[id number]
== END 2018-12-04 10:15 | disposition home or self-care (01) ==
LOC: JP.SDS 06:53
PROVIDERS: ATTEND Surgery
DX: K29.01 Acute gastritis with bleeding (principal); K29.81 Duodenitis with bleeding; K64.9 Unspecified hemorrhoids; R19.7 Diarrhea, unspecified; R13.10 Dysphagia, unspecified; K21.9 Gastro-esophageal reflux disease without esophagitis; F17.200 Nicotine dependence, unspecified, uncomplicated; F41.9 Anxiety disorder, unspecified; F32.9 Major depressive disorder, single episode, unspecified; Z98.890 Other specified postprocedural states
CPT/HCPCS: 43239; 45378; 87046; 87081; 87177; 87209; 87493; 87899; 89055; C9113; J2250; J2704; J3010; J3490; J7042

== ENCOUNTER 2018-12-15 13:55 | Emergency (ER) | payer OTHER ==
[2018-12-15 15:08] VITALS: BP 108/73; PULSE 89
[2018-12-15] MEDS ORDERED: Bupivacaine 0.5%/EPINEPHrine 1:200,000 1.8 ML Cartridge INJECT ONE (15:25)
--- NOTE | 2018-12-15 15:29 | EDM.PDOC ---
ED HPI GENERAL MEDICAL PROBLEM - General Stated Complaint: TOOTHACHE Time Seen by Provider: 12/15/18 15:20 Source of Information: Reports: Patient History Limitations: Reports: No Limitations - History of Present Illness INITIAL COMMENTS - FREE TEXT/NARRATIVE: Gabriela is a 48 year old female, presents to the ED today with left upper tooth pain, unrelieved with Ibuprofen and Tylenol at home, left message with dentist, no recent antibiotics, food/chewing makes pain worse. Denies any systemic symptoms. Long hx of overall poor dentition. Onset: Today, Sudden tooth Pain Score (Numeric/FACES): 7 - Related Data Allergies Allergy/AdvReac Type Severity Reaction Status Date / Time No Known Allergies Allergy Verified 12/15/18 15:36 Home Meds: Home Meds Citalopram [Citalopram Hbr] 40 mg PO DAILY 01/20/13 [History] Zolpidem [Ambien] 10 mg PO BEDTIME 01/26/14 [History] Lisinopril 10 mg PO DAILY 07/11/16 [History] SUMAtriptan Succinate [Imitrex] 100 mg PO ASDIRECTED 07/11/16 [History] Past Medical History HEENT History: Reports: Impaired Vision, Other (See Below) Other HEENT History: dental surgery Cardiovascular History: Reports: Hypertension Gastrointestinal History: Reports: Cholelithiasis, GERD Genitourinary History: Reports: Renal Calculus [employer] History: Reports: 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, Neurological History: Reports: Migraines Psychiatric History: Reports: Addiction, Anxiety, Depression Hematologic History: Reports: Blood Transfusion(s) - Infectious Disease History Infectious Disease History: Reports: Chicken Pox - Past Surgical History Head Surgeries/Procedures: Reports: None HEENT Surgical History: Reports: Oral Surgery, Tonsillectomy Cardiovascular Surgical History: Reports: None GI Surgical History: Reports: Cholecystectomy, EGD, Esophageal Dilatation, Dima Fundoplication Other GI Surgeries/Procedures: Nessin Female Surgical History: Reports: Hysterectomy, Salpingo-Oophorectomy Neurological Surgical History: Reports: None Dermatological Surgical History: Reports: None Social & Family History - Family History Family Medical History: Noncontributory - Caffeine Use Caffeine Use: Reports: Coffee ED ROS ENT - Review of Systems Review Of Systems: ROS reveals no pertinent complaints other than HPI. ED EXAM, ENT - Physical Exam Exam: See Below Exam Limited By: No Limitations General Appearance: Alert, WD/WN, No Apparent Distress Mouth/Throat: Dental Pain, Gum Swelling (mild, no abscess formation), Other ( left upper canine) Head: Atraumatic Neck: Normal Inspection, Supple, Non-Tender. No: Lymphadenopathy (R), Lymphadenopathy (L) Respiratory/Chest: No Respiratory Distress Cardiovascular: Normal Peripheral Pulses Extremities: Normal Inspection Neurological: Alert, Oriented, CN II-XII Intact Psychiatric: Normal Affect, Normal Mood Skin: Warm, Dry, Intact Course - Vital Signs Last Recorded V/S: Last Vital Signs Temp 36.6 C 12/15/18 15:05 Pulse 89 12/15/18 15:05 Resp 13 12/15/18 15:05 BP 108/73 12/15/18 15:05 Pulse Ox 100 12/15/18 15:05 Dental abscess, no fluctuance that requires I and D. Dental block done after obtaining patient verbal consent tolerated well. Start Amoxicillin. Ibuprofen for pain, [place] for severe pain, narcotic safety and side effects discussed. Dentist on Monday Patient discharged in stable condition. - Orders/Labs/Meds Meds: Medications Discontinued Medications Generic Name Dose Route Start Last Admin Trade Name Ernesto PRN Reason Stop Dose Admin Bupivacaine HCl/Epinephrine Bitart 1.8 ml 12/15/18 15:25 Marcaine 0.5%/Epinephrine 1:200,000 INJECT 12/15/18 15:26 ONETIME ONE Departure - Departure Time of Disposition: 16:00 Disposition: Home, Self-Care 01 Condition: Good Clinical Impression: Dental caries, Pain, dental - Discharge Information Instructions: Dental Abscess, [id number] Referrals: Jon Elkins MD [Primary Care Provider] - Additional Instructions: Start Amoxicillin tonight. Get into dentist on Monday
== END 2018-12-15 15:48 | disposition home or self-care (01) ==
LOC: JP.ED 13:55
DX: K04.7 Periapical abscess without sinus (principal); I10 Essential (primary) hypertension; F41.9 Anxiety disorder, unspecified; F32.9 Major depressive disorder, single episode, unspecified; Z79.899 Other long term (current) drug therapy
CPT/HCPCS: 64400; 99282; J3490; 99283

== ENCOUNTER 2019-03-09 16:28 | Emergency (ER) | payer SELFPAY ==
[2019-03-09 16:38] VITALS: BP 142/99; PULSE 113
[2019-03-09] MEDS ORDERED: Bupivacaine 0.5%/EPINEPHrine 1:200,000 1.8 ML Cartridge INJECT ONE (16:43)
[2019-03-09] MEDS ORDERED: Albuterol/Ipratropium 3.0-0.5 MG/3 ML Neb Soln NEB ONE (16:55)
--- NOTE | 2019-03-09 17:01 | EDM.PDOC ---
ED HPI GENERAL MEDICAL PROBLEM - General Chief Complaint: General Stated Complaint: BROKEN TOOTH Time Seen by Provider: 03/09/19 16:30 Source of Information: Reports: Patient History Limitations: Reports: No Limitations - History of Present Illness INITIAL COMMENTS - FREE TEXT/NARRATIVE: Gabriela is a 48 year old female, hx of poor dentition who presents to the ED today with left lower broken molar that occurred prior to arrival. Patient c/o pain to area unrelieved with Tylenol/Ibuprofen. Patient also has frequent harsh productive cough with rhonchi on LLL on exam. She c/o URI symptoms for the last few days, doesn't think she has had a fever, difficulty sleeping secondary to cough. Patient smokes but hasn't for 2 days. Patient has been busy with family as [id number] just last evening. Patient last saw dentist in November. Onset: Today, Sudden Left Lower Jaw Pain Score (Numeric/FACES): 6 - Related Data Allergies Allergy/AdvReac Type Severity Reaction Status Date / Time No Known Allergies Allergy Verified 03/09/19 16:38 Home Meds: Home Meds Citalopram [Citalopram Hbr] 40 mg PO DAILY 01/20/13 [History] Zolpidem [Ambien] 10 mg PO BEDTIME 01/26/14 [History] Lisinopril 10 mg PO DAILY 07/11/16 [History] SUMAtriptan Succinate [Imitrex] 100 mg PO ASDIRECTED 07/11/16 [History] Past Medical History HEENT History: Reports: Impaired Vision, Other (See Below) Other HEENT History: dental surgery Cardiovascular History: Reports: Hypertension Gastrointestinal History: Reports: Cholelithiasis, GERD Genitourinary History: Reports: Renal Calculus [employer] History: Reports: 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, Neurological History: Reports: Migraines Psychiatric History: Reports: Addiction, Anxiety, Depression Hematologic History: Reports: Blood Transfusion(s) - Infectious Disease History Infectious Disease History: Reports: Chicken Pox - Past Surgical History Head Surgeries/Procedures: Reports: None HEENT Surgical History: Reports: Oral Surgery, Tonsillectomy Cardiovascular Surgical History: Reports: None GI Surgical History: Reports: Cholecystectomy, EGD, Esophageal Dilatation, Dima Fundoplication Other GI Surgeries/Procedures: Nessin Female Surgical History: Reports: Hysterectomy, Salpingo-Oophorectomy Neurological Surgical History: Reports: None Dermatological Surgical History: Reports: None Social & Family History - Family History Family Medical History: Noncontributory - Tobacco Use Smoking Status *Q: Current Every Day Smoker Years of Tobacco use: 8 Packs/Tins Daily: 0.5 Used Tobacco, but Quit: No - Caffeine Use Caffeine Use: Reports: Coffee - Recreational Drug Use Recreational Drug Use: No ED ROS GENERAL - Review of Systems Review Of Systems: ROS reveals no pertinent complaints other than HPI. ED EXAM, GENERAL - Physical Exam Exam: See Below Exam Limited By: No Limitations General Appearance: Alert, WD/WN, Mild Distress Eye Exam: Bilateral Eye: EOMI, PERRL Ears: Normal External Exam Throat/Mouth: Normal Inspection, Other (broken left lower molar, overall poor dentition, no abscess formation, no signs of elton's angina) Head: Atraumatic Neck: Normal Inspection, Supple, Non-Tender Respiratory/Chest: Rhonchi (LLL), Wheezing (expiratory with frequent harsh productive cough) Cardiovascular: No Murmur, Tachycardia Extremities: Normal Inspection Neurological: Alert, Oriented Psychiatric: Anxious Skin Exam: Warm, Dry Lymphatic: No Adenopathy ED GENERAL MEDICAL PROCEDURES - Additional/Other Procedure(s) Other (Free Text) Procedure(s): Dental block to left inferior alveolar space with 1.8 ml of bupivacaine with no complications, patient tolerated well Course - Vital Signs Last Recorded V/S: Last Vital Signs Temp 37.1 C 03/09/19 16:39 Pulse 113 H 03/09/19 16:39 Resp 16 03/09/19 16:39 BP 142/99 H 03/09/19 16:39 Pulse Ox 97 03/09/19 16:39 Gabriela is a 48 year old female who presents to the ED today with c/o broken left lower molar that occurred prior to arrival. Please refer to HPI and focused exam. Tooth number 18 affected, no abscess formation that requires I and D. Dental block done as noted in procedure note, patient tolerated well. Patient also with frequent harsh productive cough, LLL rhonchi and expiratory wheeze, given Duo Neb here with improvement in wheezing. I am going to start patient on Amoxicillin for dental infection prophylaxis which should also treat any bacterial component that may be present from her current respiratory infection. Patient encouraged to continue with Ibuprofen for dental pain, I have prescribed her Donna for severe pain, narcotic safety and side effects discussed. Tessalon Prateek prescribed for cough, Albuterol inhaler as needed for shortness of breath wheezing. I did recommend she purchase some DenTek over the counter to seal the broken area of affected tooth and prevent nerve exposure which should help with the pain. Patient to follow up with primary dentist this week. Follow up with clinic if URI symptoms not improving. Reasons to return to the ED discussed in detail. Patient is agreeable to plan of care and discharged in stable condition. - Orders/Labs/Meds Orders: Active Orders 24 hr Category Date Time Status RT Aerosol Therapy [RC] ASDIRECTED Care 03/09/19 16:55 Ordered Albuterol/Ipratropium [DuoNeb 3.0-0.5 MG/3 ML] Med 03/09/19 16:55 Once 3 ml NEB ONETIME ONE Meds: Medications Discontinued Medications Generic Name Dose Route Start Last Admin Trade Name Freq PRN Reason Stop Dose Admin Bupivacaine HCl/Epinephrine Bitart 1.8 ml 03/09/19 16:43 Marcaine 0.5%/Epinephrine 1:200,000 INJECT 03/09/19 16:44 ONETIME ONE Departure - Departure Time of Disposition: 17:30 Disposition: Home, Self-Care 01 Condition: Fair Clinical Impression: URI, acute Broken tooth Qualifiers: Encounter type: initial encounter Fracture type: closed Qualified Code(s): S02.5XXA - Fracture of tooth (traumatic), initial encounter for closed fracture - Discharge Information Instructions: Upper Respiratory Infection, Adult, [id number] Referrals: Jon Elkins MD [Primary Care Provider] - Additional Instructions: Gabriela, Please follow up with your dentist this week. Try to find some Den Kiko, this is over the counter at most stores in the [facility] [place]. This will help cover the nerves exposed on affected tooth. Start amoxicillin today and take as prescribed. Ibuprofen for pain, if this isn't effective I did give you Donna, a narcotic, do not drive if you take this. Albuterol inhaler for wheezing/sob. Tessalon for cough as needed. Stay well hydrated. I am sorry to hear about your [id number], please take care and don't forget to take care of yourself! - My Orders Last 24 Hours: My Active Orders 03/09/19 16:55 RT Aerosol Therapy [RC] ASDIRECTED Albuterol/Ipratropium [DuoNeb 3.0-0.5 MG/3 ML] 3 ml NEB ONETIME ONE - Assessment/Plan Last 24 Hours: My Active Orders 03/09/19 16:55 RT Aerosol Therapy [RC] ASDIRECTED Albuterol/Ipratropium [DuoNeb 3.0-0.5 MG/3 ML] 3 ml NEB ONETIME ONE
== END 2019-03-09 17:22 | disposition home or self-care (01) ==
LOC: JP.ED 16:28
DX: K03.81 Cracked tooth (principal); J06.9 Acute upper respiratory infection, unspecified; I10 Essential (primary) hypertension; F32.9 Major depressive disorder, single episode, unspecified; F17.210 Nicotine dependence, cigarettes, uncomplicated; Z79.899 Other long term (current) drug therapy
CPT/HCPCS: 64400; 94640; 99283; J3490; J7620-GY

== ENCOUNTER 2019-06-26 16:19 | Emergency (ER) | payer OTHER ==
[2019-06-26 17:21] VITALS: BP 108/75; PULSE 122
--- NOTE | 2019-06-26 18:20 | EDM.PDOC ---
ED HPI GENERAL MEDICAL PROBLEM - General Chief Complaint: General Stated Complaint: FEVER,COUGH Time Seen by Provider: 06/26/19 18:14 Source of Information: Reports: Patient, Old Records, RN Notes Reviewed History Limitations: Reports: No Limitations - History of Present Illness INITIAL COMMENTS - FREE TEXT/NARRATIVE: 48-year-old female presents emergency department today complaint of fever and cough, she did not get a flu shot this year she has been ill for about 48 hours she does have poor dentition she is noticed some thick purulent drainage coming from an upper portion of her tooth on the right side. She states she does not qualify for the community dentist and she could not get into her current dentist until she pays her outstanding balance Middle Face/Facial Pain Score (Numeric/FACES): 8 - Related Data Allergies Allergy/AdvReac Type Severity Reaction Status Date / Time No Known Allergies Allergy Verified 03/09/19 16:38 Home Meds: Home Meds Citalopram [Citalopram Hbr] 40 mg PO DAILY 01/20/13 [History] Zolpidem [Ambien] 10 mg PO BEDTIME 01/26/14 [History] Lisinopril 10 mg PO DAILY 07/11/16 [History] Albuterol Sulfate [Albuterol Sulfate Hfa] 8.5 gm IH TID 06/26/19 [History] Benzonatate 200 mg PO TID 06/26/19 [History] Past Medical History HEENT History: Reports: Impaired Vision, Other (See Below) Other HEENT History: dental surgery Cardiovascular History: Reports: Hypertension Gastrointestinal History: Reports: Cholelithiasis, GERD Genitourinary History: Reports: Renal Calculus [employer] History: Reports: 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, Neurological History: Reports: Migraines Psychiatric History: Reports: Addiction, Anxiety, Depression Hematologic History: Reports: Blood Transfusion(s) - Infectious Disease History Infectious Disease History: Reports: Chicken Pox - Past Surgical History Head Surgeries/Procedures: Reports: None HEENT Surgical History: Reports: Oral Surgery, Tonsillectomy Cardiovascular Surgical History: Reports: None GI Surgical History: Reports: Cholecystectomy, EGD, Esophageal Dilatation, Dima Fundoplication Other GI Surgeries/Procedures: Nessin Female Surgical History: Reports: Hysterectomy, Salpingo-Oophorectomy Neurological Surgical History: Reports: None Dermatological Surgical History: Reports: None Social & Family History - Family History Family Medical History: Noncontributory - Tobacco Use Smoking Status *Q: Current Every Day Smoker Years of Tobacco use: 12 Packs/Tins Daily: 0.5 - Caffeine Use Caffeine Use: Reports: Coffee, Soda - Recreational Drug Use Recreational Drug Use: No ED ROS GENERAL - Review of Systems Review Of Systems: See Below Constitutional: Reports: Fever, Chills HEENT: Reports: Dental Pain, Other (Dental drainage) Respiratory: Reports: Cough. Denies: Shortness of Breath, Sputum Cardiovascular: Reports: No Symptoms GI/Abdominal: Reports: No Symptoms : Reports: No Symptoms Musculoskeletal: Reports: No Symptoms ED EXAM, GENERAL - Physical Exam Exam: See Below Exam Limited By: No Limitations General Appearance: Alert, WD/WN, No Apparent Distress Eye Exam: Bilateral Eye: Normal Inspection Nose: Normal Inspection, Normal Mucosa, No Blood Throat/Mouth: Normal Inspection, Other (Dentition is poor there is tenderness around tooth #8) Head: Atraumatic, Normocephalic Neck: Normal Inspection, Supple, Non-Tender, Full Range of Motion Respiratory/Chest: No Respiratory Distress, Lungs Clear, Normal Breath Sounds, No Accessory Muscle Use, Chest Non-Tender Cardiovascular: Regular Rate, Rhythm, No Murmur GI/Abdominal: Soft, Non-Tender Course - Vital Signs Last Recorded V/S: Last Vital Signs Temp 97.7 F 06/26/19 18:11 Pulse 122 H 06/26/19 18:11 Resp 16 06/26/19 18:11 BP 108/75 06/26/19 18:11 Pulse Ox 98 06/26/19 18:11 - Orders/Labs/Meds Orders: Active Orders 24 hr Category Date Time Status Ketorolac [Toradol] Med 06/26/19 19:43 Once 60 mg IM ONETIME ONE Labs: Laboratory Tests 06/26/19 06/26/19 Range/Units 18:24 18:24 WBC 4.1 L (4.5-11.0) K/uL RBC 3.19 L (3.30-5.50) M/uL Hgb 10.9 L D (12.0-15.0) g/dL Hct 34.3 L (36.0-48.0) % MCV 108 H (80-98) fL MCH 34 H (27-31) pg MCHC 32 (32-36) % Plt Count 297 (150-400) K/uL Neut % (Auto) 68 H (36-66) % Lymph % (Auto) 18 L (24-44) % [place] % (Auto) 12 H (2-6) % Eos % (Auto) 1 L (2-4) % Baso % (Auto) 1 (0-1) % Sodium 144 (140-148) mmol/L Potassium 3.0 L (3.6-5.2) mmol/L Chloride 107 (100-108) mmol/L Carbon Dioxide 23 (21-32) mmol/L Anion Gap 17.0 H (5.0-14.0) mmol/L BUN 17 (7-18) mg/dL Creatinine 0.8 (0.6-1.0) mg/dL Est Cr Clr Drug Dosing 77.38 mL/min Estimated GFR (MDRD) > 60 (>60) Glucose 113 H (74-106) mg/dL Calcium 8.4 L (8.5-10.1) mg/dL Total Bilirubin 0.2 D (0.2-1.0) mg/dL AST 29 (15-37) U/L ALT 35 (12-78) U/L Alkaline Phosphatase 65 (46-116) U/L Total Protein 7.3 (6.4-8.2) g/dL Albumin 3.7 (3.4-5.0) g/dL Globulin 3.6 H (2.3-3.5) g/dL Albumin/Globulin Ratio 1.0 L (1.2-2.2) Departure - Departure Time of Disposition: 19:47 Disposition: Home, Self-Care 01 Condition: Fair Clinical Impression: Dental abscess, Influenza B - Discharge Information Instructions: Influenza, Adult, [id number], Dental Abscess, [id number] Referrals: Jon Elkins MD [Primary Care Provider] - Forms: ED Department Discharge Additional Instructions: Take full course of antibiotics for your dental abscess, recommend using Tamiflu which will shorten the duration and shorten the symptoms of your influenza. Please contact your dentist as soon as possible. Call or return to the emergency department worsening of symptoms Sepsis Event Note - Evaluation Sepsis Screening Result: Possible Sepsis Risk - Focused Exam Vital Signs: Vital Signs Temp Pulse Resp BP Pulse Ox 06/26/19 18:11 97.7 F 122 H 16 108/75 98 06/26/19 17:20 97.7 F 122 H 16 108/75 98 Date Exam was Performed: 06/26/19 Time Exam was Performed: 19:44 - My Orders Last 24 Hours: My Active Orders 06/26/19 19:43 Ketorolac [Toradol] 60 mg IM ONETIME ONE - Assessment/Plan Last 24 Hours: My Active Orders 06/26/19 19:43 Ketorolac [Toradol] 60 mg IM ONETIME ONE Plan: Assessment Acuity = acute Site and laterality = influenza B, suspicious for dental abscess around tooth #8 Etiology = influenza B and bacterial cause and poor dentition for the dental abscess Manifestations = pain dental, fever Location of injury = Home Lab values = influenza B is positive Plan White cell low at 4.1 consistent leukopenia, hemoglobin low at 10.9 consistent normochromic anemia potassium low at 3.0 consistent with hypokalemia the remainder of lab work is unremarkable, because she does not have sufficient funds at this time I did write prescription for amoxicillin 875 1 tab p.o. twice daily x10 days, Tamiflu 75 mg 1 tab p.o. twice daily x5 days also hydrocodone 5/325 1 tab p.o. 3 times daily PRN total #6 she will contact her dentistry in the morning This note was dictated using i-marker voice recognition software please call with any questions on syntax or grammar.
[2019-06-26] MEDS ORDERED: Ketorolac 60 MG/2 ML SDV IM ONE (19:43)
== END 2019-06-26 20:01 | disposition home or self-care (01) ==
LOC: JP.ED 16:19
DX: K04.7 Periapical abscess without sinus (principal); J10.1 Influenza due to other identified influenza virus with other respiratory manifestations; I10 Essential (primary) hypertension; F32.9 Major depressive disorder, single episode, unspecified; F41.9 Anxiety disorder, unspecified; F17.210 Nicotine dependence, cigarettes, uncomplicated; Z79.899 Other long term (current) drug therapy
CPT/HCPCS: 36415; 80053; 85025; 87804; 96372; 99283; J1885

== ENCOUNTER 2019-10-05 15:52 | Emergency (ER) | payer OTHER ==
[2019-10-05 16:03] VITALS: BP 135/88
[2019-10-05 16:05] VITALS: PULSE 138
--- NOTE | 2019-10-05 16:37 | EDM.PDOC ---
ED HPI GENERAL MEDICAL PROBLEM - General Chief Complaint: General Stated Complaint: TOOTH PAIN Time Seen by Provider: 10/05/19 17:00 Source of Information: Reports: Patient History Limitations: Reports: No Limitations - History of Present Illness Onset: Today Duration: Getting Worse Quality: Reports: Sharp, Stabbing Associated Symptoms: Reports: No Other Symptoms Tooth/Teeth Pain Score (Numeric/FACES): 6 - Related Data Allergies Allergy/AdvReac Type Severity Reaction Status Date / Time No Known Allergies Allergy Verified 10/05/19 16:02 Home Meds: Home Meds Citalopram [Citalopram Hbr] 40 mg PO DAILY 01/20/13 [History] Zolpidem [Ambien] 10 mg PO BEDTIME 01/26/14 [History] Lisinopril 10 mg PO DAILY 07/11/16 [History] Albuterol Sulfate [Albuterol Sulfate Hfa] 8.5 gm IH TID 06/26/19 [History] Benzonatate 200 mg PO TID 06/26/19 [History] Past Medical History HEENT History: Reports: Impaired Vision, Other (See Below) Other HEENT History: dental surgery Cardiovascular History: Reports: Hypertension Gastrointestinal History: Reports: Cholelithiasis, GERD Genitourinary History: Reports: Renal Calculus 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, Neurological History: Reports: Migraines Psychiatric History: Reports: Addiction, Anxiety, Depression Hematologic History: Reports: Blood Transfusion(s) - Infectious Disease History Infectious Disease History: Reports: Chicken Pox - Past Surgical History Head Surgeries/Procedures: Reports: None HEENT Surgical History: Reports: Oral Surgery, Tonsillectomy Cardiovascular Surgical History: Reports: None GI Surgical History: Reports: Cholecystectomy, EGD, Esophageal Dilatation, Dima Fundoplication Other GI Surgeries/Procedures: Nessin Female Surgical History: Reports: Hysterectomy, Salpingo-Oophorectomy Neurological Surgical History: Reports: None Dermatological Surgical History: Reports: None Social & Family History - Family History Family Medical History: Noncontributory - Tobacco Use Smoking Status *Q: Current Every Day Smoker Years of Tobacco use: 7 Packs/Tins Daily: 0.5 Used Tobacco, but Quit: No Second Hand Smoke Exposure: No - Caffeine Use Caffeine Use: Reports: Soda - Recreational Drug Use Recreational Drug Use: No ED ROS GENERAL - Review of Systems Review Of Systems: See Below Constitutional: Denies: Fever Respiratory: Reports: No Symptoms Cardiovascular: Reports: No Symptoms GI/Abdominal: Reports: No Symptoms Psychiatric: Reports: No Symptoms ED EXAM, GENERAL - Physical Exam Exam: See Below Exam Limited By: No Limitations General Appearance: Alert, WD/WN Ears: Normal External Exam Nose: Normal Inspection Throat/Mouth: Other (Multiple caries w/marked gum swelling. Marked swelling, tenderness lower cheek.) Neck: Normal Inspection Respiratory/Chest: No Respiratory Distress Cardiovascular: Regular Rate, Rhythm Course - Vital Signs Text/Narrative:: Bided written prescription for amoxicillin 875 twice daily x10 days and oxycodone 5 milligrams (dispense 12 no refills ) orally 4 times daily x3 days as needed Last Recorded V/S: Last Vital Signs Temp 37.2 C 10/05/19 16:03 Pulse 138 H 10/05/19 16:05 Resp 16 10/05/19 16:03 BP 135/88 10/05/19 16:03 Pulse Ox 97 10/05/19 16:03 Departure - Departure Time of Disposition: 17:15 Disposition: Home, Self-Care 01 Condition: Good Clinical Impression: Caries, Gingivitis, Dental abscess - Discharge Information Instructions: Dental Abscess Referrals: Jon Elkins MD [Primary Care Provider] - Forms: ED Department Discharge Sepsis Event Note - Evaluation Sepsis Screening Result: No Definite Risk - Focused Exam Date Exam was Performed: 11/12/19 Time Exam was Performed: 08:19
== END 2019-10-05 17:15 | disposition home or self-care (01) ==
LOC: JP.ED 15:52
DX: K04.7 Periapical abscess without sinus (principal); K05.10 Chronic gingivitis, plaque induced; K02.9 Dental caries, unspecified; I10 Essential (primary) hypertension; F41.9 Anxiety disorder, unspecified; F32.9 Major depressive disorder, single episode, unspecified; F17.210 Nicotine dependence, cigarettes, uncomplicated; Z79.899 Other long term (current) drug therapy
CPT/HCPCS: 99282; 99283

== ENCOUNTER 2019-12-25 22:56 | Emergency (ER) | payer SELFPAY ==
[2019-12-25 23:12] VITALS: BP 124/81; PULSE 118
--- NOTE | 2019-12-25 23:27 | EDM.PDOC ---
ED HPI GENERAL MEDICAL PROBLEM - General Chief Complaint: ENT Problem Stated Complaint: TOOTH PAIN RT SIDE BOTTOM OF MOUTH Time Seen by Provider: 12/25/19 23:19 Source of Information: Reports: Patient History Limitations: Reports: No Limitations - History of Present Illness INITIAL COMMENTS - FREE TEXT/NARRATIVE: Patient presents for evaluation and treatment of pain in her right mandibular tooth. She has a history of extensive dental caries with previous extractions. Eventually all teeth will be removed and she will get either dentures or implants. For a couple of days now a right mandibular tooth that is severely decayed has been painful. There is also some pain in the tooth anterior to it and extending posteriorly along the mandible. There is a broken tooth above the mandibular one which also is decayed and causes pain at rest and especially with eating food. She has been in contact with her dentist who will see her in 4 days to extract the offending tooth. Onset: Gradual Duration: Day(s): (4) Location: Reports: Head Quality: Reports: Ache, Throbbing Severity: Moderate Improves with: Reports: None Worsens with: Reports: Eating Associated Symptoms: Reports: No Other Symptoms lower right side dental pain Pain Score (Numeric/FACES): 5 - Related Data Allergies Allergy/AdvReac Type Severity Reaction Status Date / Time No Known Allergies Allergy Verified 12/25/19 23:29 Home Meds: Home Meds Citalopram [Citalopram Hbr] 40 mg PO DAILY 01/20/13 [History] Zolpidem [Ambien] 10 mg PO BEDTIME 01/26/14 [History] Lisinopril 10 mg PO DAILY 07/11/16 [History] Albuterol Sulfate [Albuterol Sulfate Hfa] 8.5 gm IH TID 06/26/19 [History] Past Medical History HEENT History: Reports: Impaired Vision, Other (See Below) Other HEENT History: dental surgery Cardiovascular History: Reports: Hypertension Gastrointestinal History: Reports: Cholelithiasis, GERD Genitourinary History: Reports: Renal Calculus 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, Neurological History: Reports: Migraines Psychiatric History: Reports: Addiction, Anxiety, Depression Hematologic History: Reports: Blood Transfusion(s) - Infectious Disease History Infectious Disease History: Reports: Chicken Pox - Past Surgical History Head Surgeries/Procedures: Reports: None HEENT Surgical History: Reports: Oral Surgery, Tonsillectomy Cardiovascular Surgical History: Reports: None GI Surgical History: Reports: Cholecystectomy, EGD, Esophageal Dilatation, Dima Fundoplication Other GI Surgeries/Procedures: Nessin Female Surgical History: Reports: Hysterectomy, Salpingo-Oophorectomy Neurological Surgical History: Reports: None Dermatological Surgical History: Reports: None Social & Family History - Family History Family Medical History: Noncontributory - Caffeine Use Caffeine Use: Reports: Soda ED ROS ENT - Review of Systems Review Of Systems: Comprehensive ROS is negative, except as noted in HPI. ED EXAM, ENT - Physical Exam Exam: See Below Text/Narrative:: This is an uncomfortable appearing adult female seated on the table in room 1. Exam Limited By: No Limitations General Appearance: Alert, Moderate Distress Mouth/Throat: Dental Tenderness (Tooth #27 is eroded to the gumline and there is swelling of the gingival tissues associated with it. Some swelling adjacent to tooth #26. Tooth #6 is also broken and mild to moderately painful. No gum swelling adjacent to that tooth.), Gum Swelling Respiratory/Chest: No Respiratory Distress Cardiovascular: Tachycardia Course - Vital Signs Last Recorded V/S: Last Vital Signs Temp 37.1 C 12/25/19 23:14 Pulse 118 H 12/25/19 23:14 Resp 18 12/25/19 23:14 BP 124/81 12/25/19 23:14 Pulse Ox 97 12/25/19 23:14 - Orders/Labs/Meds Meds: Medications Discontinued Medications Generic Name Dose Route Start Last Admin Trade Name Ernesto PRN Reason Stop Dose Admin Bupivacaine HCl/Epinephrine Bitart 1.8 ml 12/25/19 23:32 12/25/19 23:44 Marcaine 0.5%/Epinephrine 1:200,000 INJECT 12/25/19 23:33 1.8 ml ONETIME ONE Administration - Re-Assessments/Exams Free Text/Narrative Re-Assessment/Exam: 12/26/19 00:23 I discussed a range of options with her and she is interested in a bupivacaine block. Bupivacaine 0.5% with epinephrine was used to infiltrate the 3 previously mentioned painful teeth. Within 15 minutes of infiltration, she was pain-free. [facility] prescriptions entered for Augmentin 875/125 mg, 20 tablets; hydrocodone 5/325 mg, 12 tablets; both use as directed. Continue other known local measures and follow-up with dentist on December 29, as planned. Departure - Departure Time of Disposition: 00:12 Disposition: Home, Self-Care 01 Clinical Impression: Dental caries extending into dentin - Discharge Information Instructions: Dental Abscess, [id number], Dental Caries, Pediatric Referrals: Jon Elknis MD [Primary Care Provider] - Forms: ED Department Discharge Additional Instructions: Start antibiotic tonight and take until otherwise directed by your dentist. Use hydrocodone as needed for pain. Use a piece of sugar-free chewing gum to cover over the ends of the decayed teeth. By keeping air off it, they should not hurt as much. The Novocain shot you were given tonight should last around 5 or 6 hours. Follow-up with your dentist as already arranged this coming December 29. Return to ER if feeling worse in any way. Sepsis Event Note (ED) - Evaluation Sepsis Screening Result: No Definite Risk - Focused Exam Vital Signs: Vital Signs Temp Pulse Resp BP Pulse Ox 12/25/19 23:14 37.1 C 118 H 18 124/81 97 12/25/19 23:11 37.1 C 118 H 18 124/81 97
[2019-12-25] MEDS ORDERED: Bupivacaine 0.5%/EPINEPHrine 1:200,000 1.8 ML Cartridge INJECT ONE (23:32)
== END 2019-12-26 00:24 | disposition home or self-care (01) ==
LOC: JP.ED 22:56
DX: K02.9 Dental caries, unspecified (principal); F32.9 Major depressive disorder, single episode, unspecified; F41.9 Anxiety disorder, unspecified; I10 Essential (primary) hypertension; Z79.899 Other long term (current) drug therapy
CPT/HCPCS: 64400; 99282; J3490

== ENCOUNTER 2020-03-23 17:18 | Emergency (ER) | payer OTHER, SELFPAY | END 2020-03-23 19:10 | disposition left against medical advice (07) | LOC: JP.ED 17:18 | DX: Z53.21 Procedure and treatment not carried out due to patient leaving prior to being seen by health care provider (principal) ==

== ENCOUNTER 2020-03-28 00:12 | Emergency (ER) | payer OTHER, SELFPAY ==
[2020-03-28 00:28] VITALS: BP 110/72; PULSE 120
--- NOTE | 2020-03-28 00:31 | EDM.PDOC ---
ED HPI GENERAL MEDICAL PROBLEM - General Chief Complaint: ENT Problem Stated Complaint: POST ORAL SURGERY ISSUES Time Seen by Provider: 03/28/20 00:25 Source of Information: Reports: Patient, RN Notes Reviewed History Limitations: Reports: No Limitations - History of Present Illness INITIAL COMMENTS - FREE TEXT/NARRATIVE: 49-year-old female presents emergency department a complaint of postoperative pain she recently had a significant amount of dental surgery done she has been using tramadol she is also on clindamycin as well. 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) Other Treatments STEEL HANDLER: Clindamycin and Tramadol - Related Data Allergies Allergy/AdvReac Type Severity Reaction Status Date / Time No Known Allergies Allergy Verified 12/25/19 23:29 Home Meds: Home Meds Citalopram [Citalopram Hbr] 40 mg PO DAILY 01/20/13 [History] Zolpidem [Ambien] 10 mg PO BEDTIME 01/26/14 [History] Lisinopril 10 mg PO DAILY 07/11/16 [History] Albuterol Sulfate [Albuterol Sulfate Hfa] 8.5 gm IH TID 06/26/19 [History] Past Medical History HEENT History: Reports: Impaired Vision, Other (See Below) Other HEENT History: dental surgery Cardiovascular History: Reports: Hypertension Gastrointestinal History: Reports: Cholelithiasis, GERD Genitourinary History: Reports: Renal Calculus 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, Musculoskeletal History: Reports: Fracture, Other (See Below) Other Musculoskeletal History: left hand Neurological History: Reports: Migraines Psychiatric History: Reports: Addiction, Anxiety, Depression Hematologic History: Reports: Blood Transfusion(s) - Infectious Disease History Infectious Disease History: Reports: Chicken Pox - Past Surgical History Head Surgeries/Procedures: Reports: None HEENT Surgical History: Reports: Oral Surgery, Tonsillectomy Cardiovascular Surgical History: Reports: None GI Surgical History: Reports: Cholecystectomy, EGD, Esophageal Dilatation, Dima Fundoplication Other GI Surgeries/Procedures: Nessin Female Surgical History: Reports: Hysterectomy, Salpingo-Oophorectomy Neurological Surgical History: Reports: None Musculoskeletal Surgical History: Reports: Other (See Below) Other Musculoskeletal Surgeries/Procedures:: left hand surgical repair Dermatological Surgical History: Reports: None Social & Family History - Family History Family Medical History: Noncontributory - Tobacco Use Tobacco Use Status *Q: Current Every Day Tobacco User Years of Tobacco use: 9 Packs/Tins Daily: 0.2 - Caffeine Use Caffeine Use: Reports: Soda - Alcohol Use Days Per Week of Alcohol Use: 1 Number of Drinks Per Day: 2 Total Drinks Per Week: 2 - Recreational Drug Use Recreational Drug Use: No ED ROS ENT - Review of Systems Review Of Systems: See Below Constitutional: Reports: No Symptoms HEENT: Reports: Dental Pain Respiratory: Reports: No Symptoms Cardiovascular: Reports: No Symptoms ED EXAM, ENT - Physical Exam Exam: See Below Text/Narrative:: Mouth mucosa is moist and pink she does have fresh sutures on the inferior jaw left side tender to the touch there is some edema in the jaw and tenderness around the area however not unexpected for postsurgical neck is supple no thyromegaly no tracheal deviation Exam Limited By: No Limitations General Appearance: Alert, Mild Distress Ears: Normal External Exam, Normal Canal, Hearing Grossly Normal, Normal TMs Respiratory/Chest: No Respiratory Distress Course - Vital Signs Last Recorded V/S: Last Vital Signs Temp 98.1 F 03/28/20 00:24 Pulse 120 H 03/28/20 00:24 Resp 14 03/28/20 00:24 BP 110/72 03/28/20 00:24 Pulse Ox 95 03/28/20 00:24 Departure - Departure Time of Disposition: 00:31 Disposition: Home, Self-Care 01 Condition: Fair Clinical Impression: Post-op pain - Discharge Information Instructions: Acute Pain, Adult Referrals: Jon Elkins MD [Primary Care Provider] - Additional Instructions: Use ibuprofen for baseline pain control use the Percocet for breakthrough pain, please keep your follow-up appointment with your oral surgeon Sepsis Event Note (ED) - Evaluation Sepsis Screening Result: No Definite Risk - Focused Exam Vital Signs: Vital Signs Temp Pulse Resp BP Pulse Ox 03/28/20 00:24 98.1 F 120 H 14 110/72 95 - Assessment/Plan Plan: Assessment Acuity = acute Site and laterality = postoperative pain Etiology = oral surgery Manifestations = none Location of injury = Home Lab values = none Plan Prescription written for oxycodone 5/325 1 tab p.o. every 6 hours as needed total #20 she does have follow-up appointment with her oral surgeon This note was dictated using dragon voice recognition software please call with any questions on syntax or grammar.
== END 2020-03-28 00:38 | disposition home or self-care (01) ==
LOC: JP.ED 00:12
DX: G89.18 Other acute postprocedural pain (principal); I10 Essential (primary) hypertension; F41.9 Anxiety disorder, unspecified; F32.9 Major depressive disorder, single episode, unspecified; F17.210 Nicotine dependence, cigarettes, uncomplicated; Z79.899 Other long term (current) drug therapy
CPT/HCPCS: 99283

== ENCOUNTER 2020-06-06 13:16 | Emergency (ER) | payer SELFPAY ==
[2020-06-06 13:33] VITALS: BP 109/76; PULSE 115
--- NOTE | 2020-06-06 13:55 | EDM.PDOC ---
ED HPI GENERAL MEDICAL PROBLEM - General Chief Complaint: ENT Problem Stated Complaint: PAIN L SIDE JAW Time Seen by Provider: 06/06/20 13:45 Source of Information: Reports: Patient, Family, RN Notes Reviewed History Limitations: Reports: No Limitations - History of Present Illness INITIAL COMMENTS - FREE TEXT/NARRATIVE: 49-year-old female presents emergency department a complaint of left-sided jaw pain, she was recently with the oral surgeon did have some work done she is markedly swollen on the left side of her face did complete a course of antibiotics prior to surgery has used Tylenol 3 for pain control. However she is out of that medication and needs additional pain control until she can visit with the oral surgeon on Monday, no fevers Left Jaw Pain Score (Numeric/FACES): 6 - Related Data Allergies Allergy/AdvReac Type Severity Reaction Status Date / Time No Known Allergies Allergy Verified 06/06/20 13:32 Home Meds: Home Meds Citalopram [Citalopram Hbr] 40 mg PO DAILY 01/20/13 [History] Zolpidem [Ambien] 10 mg PO BEDTIME 01/26/14 [History] Lisinopril 10 mg PO DAILY 07/11/16 [History] Acetaminophen 500 mg PO Q6H 06/06/20 [History] Chlorhexidine Gluconate [Periogard] 15 ml MM QID 06/06/20 [History] Past Medical History HEENT History: Reports: Impaired Vision, Other (See Below) Other HEENT History: dental surgery Cardiovascular History: Reports: Hypertension Gastrointestinal History: Reports: Cholelithiasis, GERD Genitourinary History: Reports: Renal Calculus 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, Musculoskeletal History: Reports: Fracture, Other (See Below) Other Musculoskeletal History: left hand Neurological History: Reports: Migraines Psychiatric History: Reports: Addiction, Anxiety, Depression Hematologic History: Reports: Blood Transfusion(s) - Infectious Disease History Infectious Disease History: Reports: Chicken Pox - Past Surgical History Head Surgeries/Procedures: Reports: None HEENT Surgical History: Reports: Oral Surgery, Tonsillectomy Cardiovascular Surgical History: Reports: None GI Surgical History: Reports: Cholecystectomy, EGD, Esophageal Dilatation, Dima Fundoplication Other GI Surgeries/Procedures: Nessin Female Surgical History: Reports: Hysterectomy, Salpingo-Oophorectomy Neurological Surgical History: Reports: None Musculoskeletal Surgical History: Reports: Other (See Below) Other Musculoskeletal Surgeries/Procedures:: left hand surgical repair Dermatological Surgical History: Reports: None Social & Family History - Family History Family Medical History: No Pertinent Family History - Tobacco Use Tobacco Use Status *Q: Current Every Day Tobacco User Years of Tobacco use: 30 Packs/Tins Daily: 0.2 - Caffeine Use Caffeine Use: Reports: Soda - Recreational Drug Use Recreational Drug Use: No ED ROS ENT - Review of Systems Review Of Systems: See Below Constitutional: Reports: No Symptoms HEENT: Reports: Dental Pain Respiratory: Reports: No Symptoms Cardiovascular: Reports: No Symptoms ED EXAM, ENT - Physical Exam Exam: See Below Text/Narrative:: Mouth mucosa is moist and pink there is some edema appreciated on the left side of her jaw mainly inferior she is tender to any type of palpation over the jaw area dentition is poor several teeth are missing Exam Limited By: No Limitations General Appearance: Alert, WD/WN, No Apparent Distress Neck: Normal Inspection, Lymphadenopathy (L). No: Lymphadenopathy (R) Course - Vital Signs Last Recorded V/S: Last Vital Signs Temp 98.8 F 06/06/20 13:38 Pulse 115 H 06/06/20 13:38 Resp 16 06/06/20 13:38 BP 109/76 06/06/20 13:38 Pulse Ox 96 06/06/20 13:38 Departure - Departure Time of Disposition: 13:54 Disposition: Home, Self-Care 01 Condition: Fair Clinical Impression: Post-op pain - Discharge Information Instructions: Pain Relief Before and After Surgery Referrals: PCP,None [Primary Care Provider] - Additional Instructions: Continue to use the hydrocodone as needed for pain control, use ibuprofen for baseline pain use hydrocodone for breakthrough pain please contact your oral surgeon on Monday for further evaluation Sepsis Event Note (ED) - Evaluation Sepsis Screening Result: No Definite Risk - Focused Exam Vital Signs: Vital Signs Temp Pulse Resp BP Pulse Ox 06/06/20 13:38 98.8 F 115 H 16 109/76 96 06/06/20 13:32 98.8 F 115 H 16 109/76 96 - Assessment/Plan Plan: Assessment Acuity = acute Site and laterality = postoperative pain Etiology = recent oral surgery Manifestations = none Location of injury = Home Lab values = none Plan Elected to treat empirically hydrocodone 5/325 1 tab p.o. 3 times daily as needed total #20 she will use this for pain control until she can contact oral surgery on Monday for further evaluation This note was dictated using [employer] voice recognition software please call with any questions on syntax or grammar.
== END 2020-06-06 14:03 | disposition home or self-care (01) ==
LOC: JP.ED 13:16
DX: G89.18 Other acute postprocedural pain (principal); I10 Essential (primary) hypertension; Z72.0 Tobacco use
CPT/HCPCS: 99283

== ENCOUNTER 2020-08-15 18:34 | Emergency (ER) | payer SELFPAY ==
[2020-08-15 19:10] VITALS: BP 131/96; PULSE 125
[2020-08-15] MEDS ORDERED: Bupivacaine 0.5%/EPINEPHrine 1:200,000 1.8 ML Cartridge INJECT ONE (19:22)
--- NOTE | 2020-08-15 19:40 | EDM.PDOC ---
ED HPI GENERAL MEDICAL PROBLEM - General Chief Complaint: ENT Problem Stated Complaint: TOOTH ABCSESS Time Seen by Provider: 08/15/20 19:16 Source of Information: Reports: Patient History Limitations: Reports: No Limitations - History of Present Illness INITIAL COMMENTS - FREE TEXT/NARRATIVE: Gabriela is a 50-year-old female presenting to the ED with acute onset of pain and swelling around the base of tooth #27. The patient has a fractured tooth with exposed nerve and dentin. The tooth is fractured at the level of the gingiva. There is significant gingival swelling and redness. The area is exquisitely tender. The patient states it has been increasing over the last several days. She try to get into her dentist and left messages with the emergency dentist both yesterday and today. They have not returned her call. Lower Oral/Mouth Pain Score (Numeric/FACES): 7 - Related Data Allergies Allergy/AdvReac Type Severity Reaction Status Date / Time No Known Allergies Allergy Verified 08/15/20 19:04 Home Meds: Home Meds Citalopram [Citalopram Hbr] 40 mg PO DAILY 01/20/13 [History] Zolpidem [Ambien] 10 mg PO BEDTIME 01/26/14 [History] Lisinopril 10 mg PO DAILY 07/11/16 [History] Acetaminophen 1,000 mg PO Q6H PRN 06/06/20 [History] Chlorhexidine Gluconate [Periogard] 15 ml MM QID 06/06/20 [History] Past Medical History HEENT History: Reports: Impaired Vision, Other (See Below) Other HEENT History: dental surgery Cardiovascular History: Reports: Hypertension Gastrointestinal History: Reports: Cholelithiasis, GERD Genitourinary History: Reports: Renal Calculus 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: 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, Musculoskeletal History: Reports: Fracture, Other (See Below) Other Musculoskeletal History: left hand Neurological History: Reports: Migraines Psychiatric History: Reports: Addiction, Anxiety, Depression Hematologic History: Reports: Blood Transfusion(s) - Infectious Disease History Infectious Disease History: Reports: Chicken Pox - Past Surgical History Head Surgeries/Procedures: Reports: None HEENT Surgical History: Reports: Oral Surgery, Tonsillectomy, Other (See Below) Other HEENT Surgeries/Procedures: dental carries Cardiovascular Surgical History: Reports: None GI Surgical History: Reports: Cholecystectomy, EGD, Esophageal Dilatation, Dima Fundoplication Other GI Surgeries/Procedures: Nessin Female Surgical History: Reports: Hysterectomy, Salpingo-Oophorectomy Neurological Surgical History: Reports: None Musculoskeletal Surgical History: Reports: Other (See Below) Other Musculoskeletal Surgeries/Procedures:: left hand surgical repair Dermatological Surgical History: Reports: None Social & Family History - Family History Family Medical History: No Pertinent Family History - Tobacco Use Tobacco Use Status *Q: Current Every Day Tobacco User Years of Tobacco use: 10 Packs/Tins Daily: 0.2 Used Tobacco, but Quit: No Second Hand Smoke Exposure: Yes - Caffeine Use Caffeine Use: Reports: Soda - Alcohol Use Days Per Week of Alcohol Use: 0 - Recreational Drug Use Recreational Drug Use: No ED ROS ENT - Review of Systems Review Of Systems: See Below Constitutional: Reports: No Symptoms HEENT: Reports: Dental Pain Respiratory: Reports: No Symptoms Cardiovascular: Reports: No Symptoms GI/Abdominal: Reports: No Symptoms ED EXAM, ENT - Physical Exam Exam: See Below Exam Limited By: No Limitations General Appearance: Alert, Anxious, Moderate Distress Eye Exam: Bilateral Eye: EOMI, PERRL Mouth/Throat: Dental Abcess, Dental Tenderness, Dental Trauma (Avulsed tooth at the level of the gumline for tooth #27. The tooth itself is black and exposed dentin and nerve are visible. There is significant gingival swelling, erythema, and tenderness around this tooth.), Gum Swelling Head: Atraumatic, Normocephalic Neck: Normal Inspection, Supple, Non-Tender, Full Range of Motion, Other (Submandibular adenopathy on the right.). No: Lymphadenopathy (R), Lymphadenopathy (L) Course - Vital Signs Last Recorded V/S: Last Vital Signs Temp 36.6 C 08/15/20 19:09 Pulse 125 H 08/15/20 19:09 Resp 16 08/15/20 19:09 BP 131/96 H 08/15/20 19:09 Pulse Ox 97 08/15/20 19:09 - Orders/Labs/Meds Meds: Medications Discontinued Medications Generic Name Dose Route Start Last Admin Trade Name Freq PRN Reason Stop Dose Admin Bupivacaine HCl/Epinephrine Bitart 1.8 ml 08/15/20 19:22 Bupivacaine 0.5%/Epinephrine 1:200,000 1.8 Ml Cartridge INJECT 08/15/20 19:23 ONETIME ONE - Re-Assessments/Exams Free Text/Narrative Re-Assessment/Exam: 08/15/20 19:42 based on the presenting symptoms and findings on exam, we proceeded with an incisive dental block using bupivacaine 0.5% with epinephrine. My plan is to start the patient on clindamycin 300 mg 3 times daily for 10 days and Toradol 10 mg 4 times daily as needed for pain control. The patient should see a dentist as soon as possible as is remaining of this tooth will need to be extracted. She tolerated the incisive block without complications. Indications return to the ED were discussed. Departure - Departure Time of Disposition: 19:43 Disposition: Home, Self-Care 01 Clinical Impression: Dental abscess Avulsed tooth Qualifiers: Encounter type: initial encounter Qualified Code(s): S03.2XXA - Dislocation of tooth, initial encounter - Discharge Information Instructions: Dental Abscess, [id number], Tooth Injuries, [id number] Referrals: Jon Elkins MD [Primary Care Provider] - Care Plan Goals: Follow-up as soon as possible with a dentist as what is remaining of this tooth will need to be extracted. We have started you on clindamycin 300 mg 3 times a day for the next 10 days to treat the infection. I have also prescribed Toradol 10 mg 4 times a day as needed for pain control. Both of these can be filled tonight in the [facility] machine in the lobby. Sepsis Event Note (ED) - Evaluation Sepsis Screening Result: No Definite Risk - Focused Exam Vital Signs: Vital Signs Temp Pulse Resp BP Pulse Ox 08/15/20 19:09 36.6 C 125 H 16 131/96 H 97 - Problem List & Annotations (1) Avulsed tooth SNOMED Code(s): 799050513 Code(s): S03.2XXA - DISLOCATION OF TOOTH, INITIAL ENCOUNTER Status: Acute Priority: Low Current Visit: Yes Qualifiers: Encounter type: initial encounter Qualified Code(s): S03.2XXA - Dislocation of tooth, initial encounter (2) Dental abscess SNOMED Code(s): 944189929 Code(s): K04.7 - PERIAPICAL ABSCESS WITHOUT SINUS Status: Acute Priority: Medium Current Visit: Yes - Problem List Review Problem List Initiated/Reviewed/Updated: Yes
== END 2020-08-15 20:02 | disposition home or self-care (01) ==
LOC: JP.ED 18:34
DX: S03.2XXA Dislocation of tooth, initial encounter (principal); K04.7 Periapical abscess without sinus; I10 Essential (primary) hypertension; Z72.0 Tobacco use; Z79.899 Other long term (current) drug therapy; X58.XXXA Exposure to other specified factors, initial encounter
CPT/HCPCS: 64400; 99282; 99282-25; J3490

== ENCOUNTER 2020-11-23 07:27 | Day surgery (SDC) | payer SELFPAY ==
[~2020-11-23 07:27] MED LIST: Midazolam 1 MG/ML 2 ML SDV ONE; Propofol 200 MG/20 ML SDV ONE; fentaNYL 100 MCG/2 ML SDV ONE
[2020-11-23] MEDS ORDERED: Sodium Chloride 0.9% 1,000 ML IV SCH (08:00)
[2020-11-23] MEDS ORDERED: Propofol 200 MG/20 ML SDV ONE ×2 (09:20→09:30)
[2020-11-23 10:23] VITALS: BP 112/47; PULSE 93
[2020-11-23] MEDS ORDERED: Alum Hydrox/Mag Hydrox/Simeth 15 ML, Lidocaine 2% 15 ML PO ONE ×2 (11:00)
--- NOTE | 2020-11-23 19:21 | OR ---
DATE OF PROCEDURE: 11/23/2020 SURGEON: Loco Gould MD PROCEDURE: 1. Esophagogastroduodenoscopy. 2. Colonoscopy. FINDINGS: 1. Gastric antrum ulcer, bleeding, however, not actively bleeding. 2. Polyp at the base of the appendiceal orifice, 5 mm, completely removed using cold snare wire device. 3. Normal intact Dima. 4. Mild inflammation at the GE junction concerning for residual gastroesophageal reflux disease (biopsy in all 4 quadrants using cold biopsy forceps). COMPLICATION: None. VOTATOR MACHINE OPERATOR: None. ANESTHETIC: MAC. PREOPERATIVE DIAGNOSIS: Anemia/epigastric pain. POSTOPERATIVE DIAGNOSIS: Anemia/epigastric pain. RISKS: Risks, benefits, alternatives, and limitations including, but not limited to infection, bleeding, perforation, false positives, false negatives were explained to the patient, who wished to proceed. PROCEDURE IN DETAIL: The patient was placed in left lateral decubitus position. The EGD scope was introduced and advanced atraumatically into the second part of the duodenum. No evidence of duodenitis or ulceration was noted. In the stomach itself at the antrum in proximity to the first part of the duodenum, the patient had an ulceration approximately 1.5 cm in size. This was not actively bleeding, but could definitely be the etiology of the anemia. This was biopsied in proximity to evaluate for H pylori. On retroflexion, the patient had an intact Dima fundoplication. The GE junction showed very mild inflammation. This was biopsied in all 4 quadrants to evaluate for residual gastroesophageal reflux disease. The remainder of esophagus was normal. Digital rectal exam was performed next. The scope was introduced and advanced atraumatically to the ileocecal valve. At the base of the appendix, a small polyp was encountered. This was completely removed using cold snare wire device. The scope was brought back to the remainder of the colon and retroflexed. No other abnormalities noted. No colitis. No old or new blood. No diverticulosis. No abnormalities on retroflexion. Greater than 8 minutes was spent removing the scope. The prep was acceptable, approximately 95% of luminal surface could be seen. The patient tolerated the procedure well. Loco Gould MD /[id number]
== END 2020-11-23 11:00 | disposition home or self-care (01) ==
LOC: JP.SDS 07:27
PROVIDERS: ATTEND Surgery
DX: D12.0 Benign neoplasm of cecum (principal); K31.89 Other diseases of stomach and duodenum; K25.9 Gastric ulcer, unspecified as acute or chronic, without hemorrhage or perforation; D64.9 Anemia, unspecified; I10 Essential (primary) hypertension; K21.9 Gastro-esophageal reflux disease without esophagitis
CPT/HCPCS: 43239; 45385; A9270; J2250; J2704; J3010; J7030

== ENCOUNTER 2021-06-12 14:33 | Emergency (ER) | payer SELFPAY ==
[2021-06-12 15:00] VITALS: BP 126/93; PULSE 95
[2021-06-12] MEDS: Clindamycin HCl 150 MG Cap PO ONE (15:52)
[2021-06-12] MEDS: oxyCODONE 5 MG Tab PO ONE (15:52)
== END 2021-06-12 15:55 | disposition home or self-care (01) ==
LOC: JP.ED 14:33
DX: K02.9 Dental caries, unspecified (principal); I10 Essential (primary) hypertension; K21.9 Gastro-esophageal reflux disease without esophagitis; Z87.891 Personal history of nicotine dependence; Z79.899 Other long term (current) drug therapy
CPT/HCPCS: 99282; 99283; A9270-GY

== ENCOUNTER 2021-11-15 20:21 | Emergency (ER) | payer MEDICAID ==
[2021-11-15] MEDS ORDERED: Prochlorperazine 10 MG Tab PO ONE (21:44)
[2021-11-15] MEDS ORDERED: Naproxen 250 MG Tab PO ONE (21:44)
[2021-11-15 21:50] VITALS: BP 141/88; PULSE 98
== END 2021-11-15 22:59 | disposition home or self-care (01) ==
LOC: JP.ED 20:21
DX: R55 Syncope and collapse (principal); S30.0XXA Contusion of lower back and pelvis, initial encounter; S20.212A Contusion of left front wall of thorax, initial encounter; S00.83XA Contusion of other part of head, initial encounter; G44.311 Acute post-traumatic headache, intractable; S90.512A Abrasion, left ankle, initial encounter; D53.9 Nutritional anemia, unspecified; I10 Essential (primary) hypertension; F41.9 Anxiety disorder, unspecified; F32.A Depression, unspecified; W19.XXXA Unspecified fall, initial encounter; Y92.512 Supermarket, store or market as the place of occurrence of the external cause
CPT/HCPCS: 36415; 70450; 80048; 85025; 85610; 85730; 99283; 99284-25; A9270-GY; Q0164

== ENCOUNTER 2021-11-20 16:10 | Emergency (ER) | payer MEDICAID ==
[2021-11-20] MEDS ORDERED: Sodium Chloride 0.9% 10 ML Syringe FLUSH PRN (16:43)
[2021-11-20] MEDS ORDERED: Dexamethasone 4 MG/ML SDV IVPUSH ONE (16:59)
[2021-11-20] MEDS ORDERED: diphenhydrAMINE 50 MG/ML SDV IVPUSH ONE (17:00)
[2021-11-20 17:32] VITALS: BP 119/88; PULSE 82
[2021-11-20 17:32] LABS: ESTIMATED GFR 89 mL/min (>60)
== END 2021-11-20 17:58 | disposition home or self-care (01) ==
LOC: JP.ED 16:10
DX: G43.011 Migraine without aura, intractable, with status migrainosus (principal); I10 Essential (primary) hypertension; Z79.899 Other long term (current) drug therapy
CPT/HCPCS: 36415; 80053; 80305; 81001; 82803; 83735; 85025; 85651; 86140; 96374; 96375; 99284; J1100; J1200; J3490

== ENCOUNTER 2021-11-21 09:32 | Emergency (ER) | payer MEDICAID ==
[2021-11-21 10:00] VITALS: BP 132/89; PULSE 111
[2021-11-21] MEDS ORDERED: Ondansetron 4 MG/2 ML SDV IVPUSH ONE (11:02)
[2021-11-21] MEDS ORDERED: Sodium Chloride 0.9% 10 ML Syringe FLUSH PRN (11:02)
[2021-11-21] MEDS ORDERED: fentaNYL 100 MCG/2 ML SDV IVPUSH ONE (11:02)
[2021-11-21] MEDS ORDERED: Lactated Ringers 1,000 ML IV SCH (11:15)
[2021-11-21 11:37] LABS: ESTIMATED GFR 105 mL/min (>60)
[2021-11-21] MEDS ORDERED: Sodium Chloride 0.9% 1,000 ML IV SCH (12:00)
[2021-11-21] MEDS ORDERED: HYDROmorphone 0.5 MG/0.5 ML Syringe IVPUSH ONE (13:31)
[2021-11-21] MEDS ORDERED: Ketamine 500 MG/5 ML MDV IV ONE (13:32)
== END 2021-11-21 15:03 | disposition home or self-care (01) ==
LOC: JP.ED 09:32
DX: S06.0X1A Concussion with loss of consciousness of 30 minutes or less, initial encounter (principal); I10 Essential (primary) hypertension; K21.9 Gastro-esophageal reflux disease without esophagitis; Z79.899 Other long term (current) drug therapy; W18.09XA Striking against other object with subsequent fall, initial encounter
CPT/HCPCS: 36415; 62270; 70450; 80053; 82945; 83605; 84157; 85025; 86140; 87070; 87205; 89050; 96361; 96374; 96375; 99282; 99284; J1170; J2405; J3010; J3490; J7120

== ENCOUNTER 2021-12-09 07:13 | Day surgery (SDC) | payer BC, MEDICAID ==
[2021-12-09] MEDS ORDERED: Lactated Ringers 1,000 ML IV SCH (08:00)
[2021-12-09] MEDS ORDERED: Midazolam 1 MG/ML 2 ML SDV ONE (08:11)
[2021-12-09] MEDS ORDERED: fentaNYL 100 MCG/2 ML SDV ONE (08:11)
[2021-12-09] MEDS ORDERED: Propofol 200 MG/20 ML SDV ONE ×2 (08:11→09:16)
[2021-12-09] MEDS ORDERED: Ondansetron 4 MG/2 ML SDV ONE (09:09)
[2021-12-09 10:16] VITALS: BP 119/86; PULSE 102
== END 2021-12-09 10:50 | disposition home or self-care (01) ==
LOC: JP.SDS 07:13
PROVIDERS: ATTEND Family Medicine
DX: K29.51 Unspecified chronic gastritis with bleeding (principal); D64.9 Anemia, unspecified; R73.03 Prediabetes; K90.9 Intestinal malabsorption, unspecified; Z98.890 Other specified postprocedural states
CPT/HCPCS: 43239; 45378; J2250; J2405; J2704; J3010; J7120; 88305; 88342

== ENCOUNTER 2022-06-06 05:56 | Day surgery (SDC) | payer BC ==
[2022-06-06] MEDS ORDERED: Dextrose 5%-Lactated Ringers 1,000 ML IV SCH (07:00)
[2022-06-06] MEDS ORDERED: Propofol 200 MG/20 ML SDV ONE (07:10)
[2022-06-06] MEDS ORDERED: Ondansetron 4 MG/2 ML SDV ONE (07:10)
[2022-06-06] MEDS ORDERED: Midazolam 1 MG/ML 2 ML SDV ONE (07:10)
[2022-06-06] MEDS ORDERED: fentaNYL 100 MCG/2 ML SDV ONE (07:10)
[2022-06-06] MEDS ORDERED: Glycopyrrolate 0.2 MG/ML 2 ML SDV IVPUSH ONE (07:15)
[2022-06-06] MEDS ORDERED: Glycopyrrolate 0.2 MG/ML 5 ML MDV IVPUSH ONE (07:15)
[2022-06-06 09:17] VITALS: BP 105/72; PULSE 95
== END 2022-06-06 09:30 | disposition home or self-care (01) ==
LOC: JP.SDS 05:56
PROVIDERS: ATTEND Surgery
DX: K21.9 Gastro-esophageal reflux disease without esophagitis (principal); K44.9 Diaphragmatic hernia without obstruction or gangrene; K26.9 Duodenal ulcer, unspecified as acute or chronic, without hemorrhage or perforation; F41.9 Anxiety disorder, unspecified; F32.A Depression, unspecified; Z79.899 Other long term (current) drug therapy
CPT/HCPCS: 87081; J2250; J2405; J2704; J3010; J3490; J7121

== ENCOUNTER 2022-06-28 08:26 | Inpatient (IN) | payer BC ==
[~2022-06-28 08:26] MED LIST changes: +Dexamethasone 4 MG/ML SDV ONE; +Glycopyrrolate 0.2 MG/ML 5 ML MDV ONE; -Midazolam 1 MG/ML 2 ML SDV ONE; +Neostigmine Methylsulfate 1 MG/ML 5 ML Syringe ONE; +Ondansetron 4 MG/2 ML SDV ONE; +Rocuronium 50 MG/5 ML Vial ONE; +Succinylcholine 200 MG/10 ML MDV ONE; -fentaNYL 100 MCG/2 ML SDV ONE; +fentaNYL 250 MCG/5 ML SDV ONE
[2022-06-28] MEDS ORDERED: Scopolamine 1.5 MG Transdermal Patch TOP ONE (09:00)
[2022-06-28] MEDS ORDERED: Acetaminophen 500 MG Tab PO ONE (09:00)
[2022-06-28] MEDS ORDERED: Dextrose 5%-Lactated Ringers 1,000 ML IV SCH ×2 (09:00→14:30)
[2022-06-28] MEDS ORDERED: cefOXitin 2 GM in Sodium Chloride 0.9% 50 ML IV ONE (10:00)
[2022-06-28] MEDS: HYDROmorphone/Normal Saline 6 MG/30 ML PCA Vial IV PRN ×3 (10:01→23:31)
[2022-06-28] MEDS ORDERED: Ketamine 16 MG in Sodium Chloride 0.9% 19.84 ML IV SCH (10:30)
[2022-06-28] MEDS ORDERED: Ropivacaine 35 ML, dexAMETHasone 8 MG, EPINEPHrine 0.4 MG, Sodium Chloride 0.9% 42.6 ML NERVRT SCH ×4 (10:30)
[2022-06-28] MEDS ORDERED: Naloxone 0.4 MG/ML SDV IV PRN (10:30)
[2022-06-28] MEDS ORDERED: Ketamine 500 MG/5 ML MDV IV SCH (10:30)
[2022-06-28] MEDS ORDERED: Lidocaine 1% with EPINEPHrine 1:100,000 50 ML MDV ONE (10:37)
[2022-06-28] MEDS ORDERED: Bupivacaine 0.5% 50 ML MDV ONE (10:37)
[2022-06-28] MEDS ORDERED: Meropenem 500 MG SDV ONE (10:37)
[2022-06-28] MEDS ORDERED: fentaNYL 250 MCG/5 ML SDV ONE (11:50)
[2022-06-28] MEDS ORDERED: Atropine 0.4 MG/ML SDV ONE (11:58)
[2022-06-28] MEDS ORDERED: Lactated Ringers 1,000 ML ONE (12:20)
[2022-06-28] MEDS ORDERED: Linezolid 600 MG/300 ML Premix Bag IRR ONE (12:57)
[2022-06-28] MEDS ORDERED: Rocuronium 50 MG/5 ML Vial ONE (12:58)
[2022-06-28] MEDS ORDERED: Tranexamic Acid 1,000 MG in Sodium Chloride 0.9% 50 ML IV ONE (13:00)
[2022-06-28] MEDS ORDERED: HYDROmorphone/Normal Saline 6 MG/30 ML PCA Vial IV PRN (14:03)
[2022-06-28] MEDS ORDERED: hydrOXYzine HCL 100 MG/2 ML SDV IM ONE (14:30)
[2022-06-28] MEDS ORDERED: Acetaminophen 500 MG Tab PO PRN (15:00)
[2022-06-28] MEDS ORDERED: Labetalol 20 MG/4 ML Syringe IVPUSH PRN (15:00)
[2022-06-28] MEDS ORDERED: diphenhydrAMINE 50 MG/ML SDV IVPUSH PRN (15:00)
[2022-06-28] MEDS: Acetaminophen 500 MG Tab PO SCH ×2 (15:27→21:08)
[2022-06-28] MEDS: Cyclobenzaprine 10 MG Tab PO PRN (15:28)
[2022-06-28] MEDS: SCOPOLAMINE PATCH CHECK TOP SCH (15:29)
[2022-06-28] MEDS: Ondansetron 4 MG/2 ML SDV IVPUSH PRN ×2 (15:32→21:12)
[2022-06-28] MEDS ORDERED: Pantoprazole 40 MG Vial IVPUSH SCH (16:00)
[2022-06-28] MEDS: MVI, Adult with Vitamin K 10 ML, Thiamine 200 MG, Zinc/Copper/Manganese/Selenium 1 ML i... IV SCH ×4 (16:12)
[2022-06-28] MEDS: cefOXitin 2 GM in Sodium Chloride 0.9% 50 ML IV SCH ×2 (17:58→23:12)
[2022-06-28] MEDS: hydrOXYzine HCL 100 MG/2 ML SDV IM PRN (18:22)
[2022-06-28] MEDS: Heparin Sodium 5,000 Units/ML Vial SUBCUT SCH (21:08)
[2022-06-28] MEDS: Metoclopramide 10 MG/2 ML SDV IVPUSH PRN (23:36)
[2022-06-29] MEDS: hydrOXYzine HCL 100 MG/2 ML SDV IM PRN ×2 (02:59→10:06)
[2022-06-29] MEDS: Cyclobenzaprine 10 MG Tab PO PRN ×3 (03:27→20:11)
[2022-06-29] MEDS ORDERED: Iopamidol 612 MG/ML 30 ML SDV PO ONE (03:52)
[2022-06-29] MEDS: Acetaminophen 500 MG Tab PO SCH ×2 (05:25→13:57)
[2022-06-29] MEDS: cefOXitin 2 GM in Sodium Chloride 0.9% 50 ML IV SCH ×3 (05:27→19:32)
[2022-06-29] MEDS: HYDROmorphone/Normal Saline 6 MG/30 ML PCA Vial IV PRN ×3 (08:28→21:11)
[2022-06-29] MEDS: Ondansetron 4 MG Tab.DIS PO PRN (09:31)
[2022-06-29] MEDS: Citalopram 20 MG Tab PO SCH (09:33)
[2022-06-29] MEDS: Celecoxib 200 MG Cap PO SCH ×2 (09:35→21:14)
[2022-06-29] MEDS: Docusate Sodium 100 MG Cap PO SCH ×2 (09:36→21:14)
[2022-06-29] MEDS: Bisacodyl 5 MG Tab PO SCH ×2 (09:37→21:14)
[2022-06-29] MEDS: Lisinopril 10 MG Tab PO SCH (09:39)
[2022-06-29] MEDS: SCOPOLAMINE PATCH CHECK TOP SCH (09:39)
[2022-06-29] MEDS: Heparin Sodium 5,000 Units/ML Vial SUBCUT SCH ×2 (09:40→21:15)
[2022-06-29] MEDS: Dextrose 5%-Lactated Ringers 1,000 ML IV SCH (14:24)
[2022-06-29] MEDS: MVI, Adult with Vitamin K 10 ML, Thiamine 200 MG, Zinc/Copper/Manganese/Selenium 1 ML i... IV SCH ×4 (16:31)
[2022-06-29] MEDS: Pantoprazole 40 MG Delayed-Release Granules 1 Packet PO SCH (16:32)
[2022-06-29] MEDS: Ondansetron 4 MG/2 ML SDV IVPUSH PRN (19:09)
[2022-06-29] MEDS: Metoclopramide 10 MG/2 ML SDV IVPUSH PRN (20:11)
[2022-06-29] MEDS: Tamsulosin 0.4 MG Cap.ER PO SCH (21:18)
[2022-06-30] MEDS: Acetaminophen 500 MG Tab PO SCH ×4 (00:06→21:07)
[2022-06-30] MEDS: cefOXitin 2 GM in Sodium Chloride 0.9% 50 ML IV SCH ×3 (00:07→12:19)
[2022-06-30] MEDS: HYDROmorphone/Normal Saline 6 MG/30 ML PCA Vial IV PRN ×4 (05:02→22:01)
[2022-06-30] MEDS: Dextrose 5%-Lactated Ringers 1,000 ML IV SCH ×3 (05:04→17:04)
[2022-06-30] MEDS: Cyclobenzaprine 10 MG Tab PO PRN ×3 (05:12→22:03)
[2022-06-30] MEDS: hydrOXYzine HCL 100 MG/2 ML SDV IM PRN (08:15)
[2022-06-30] MEDS ORDERED: Cyanocobalamin (Vitamin B12) 1,000 MCG/ML SDV IM ONE (09:00)
[2022-06-30] MEDS: Lisinopril 10 MG Tab PO SCH (09:29)
[2022-06-30] MEDS: Citalopram 20 MG Tab PO SCH (09:31)
[2022-06-30] MEDS: Bisacodyl 5 MG Tab PO SCH ×2 (09:32→21:11)
[2022-06-30] MEDS: Docusate Sodium 100 MG Cap PO SCH ×2 (09:32→21:11)
[2022-06-30] MEDS: Celecoxib 200 MG Cap PO SCH ×2 (09:32→21:11)
[2022-06-30] MEDS: Heparin Sodium 5,000 Units/ML Vial SUBCUT SCH ×2 (09:33→21:11)
[2022-06-30] MEDS: SCOPOLAMINE PATCH CHECK TOP SCH (10:06)
[2022-06-30] MEDS: Pantoprazole 40 MG Delayed-Release Granules 1 Packet PO SCH (17:04)
[2022-06-30] MEDS: Ondansetron 4 MG/2 ML SDV IVPUSH PRN (19:23)
[2022-06-30] MEDS: Tamsulosin 0.4 MG Cap.ER PO SCH (21:11)
[2022-07-01] MEDS: hydrOXYzine HCL 100 MG/2 ML SDV IM PRN ×3 (03:32→19:19)
[2022-07-01] MEDS: HYDROmorphone/Normal Saline 6 MG/30 ML PCA Vial IV PRN ×3 (04:28→17:16)
[2022-07-01] MEDS: Acetaminophen 500 MG Tab PO SCH ×3 (05:22→21:25)
[2022-07-01] MEDS: Celecoxib 200 MG Cap PO SCH ×2 (08:58→21:24)
[2022-07-01] MEDS: Citalopram 20 MG Tab PO SCH (09:00)
[2022-07-01] MEDS: Bisacodyl 5 MG Tab PO SCH ×2 (09:00→21:24)
[2022-07-01] MEDS: Lisinopril 10 MG Tab PO SCH (09:02)
[2022-07-01] MEDS: Docusate Sodium 100 MG Cap PO SCH ×2 (09:05→21:24)
[2022-07-01] MEDS: Heparin Sodium 5,000 Units/ML Vial SUBCUT SCH ×2 (09:07→21:24)
[2022-07-01] MEDS: Dextrose 5%-Lactated Ringers 1,000 ML IV SCH (13:20)
[2022-07-01] MEDS: Ondansetron 4 MG/2 ML SDV IVPUSH PRN (15:32)
[2022-07-01] MEDS: Pantoprazole 40 MG Delayed-Release Granules 1 Packet PO SCH (15:32)
[2022-07-01] MEDS: Cyclobenzaprine 10 MG Tab PO PRN (18:11)
[2022-07-01] MEDS: Tamsulosin 0.4 MG Cap.ER PO SCH (21:24)
[2022-07-02] MEDS: HYDROmorphone/Normal Saline 6 MG/30 ML PCA Vial IV PRN (03:55)
[2022-07-02] MEDS: Cyclobenzaprine 10 MG Tab PO PRN ×2 (04:33→20:01)
[2022-07-02] MEDS: Ondansetron 4 MG Tab.DIS PO PRN ×2 (04:34→12:28)
[2022-07-02 05:22] LABS: ESTIMATED GFR 109 mL/min (>60)
[2022-07-02] MEDS: Acetaminophen 500 MG Tab PO SCH ×3 (05:54→21:06)
[2022-07-02] MEDS: hydrOXYzine HCL 100 MG/2 ML SDV IM PRN ×2 (07:48→21:14)
[2022-07-02] MEDS: Dextrose 5%-Lactated Ringers 1,000 ML IV SCH (07:53)
[2022-07-02] MEDS: Citalopram 20 MG Tab PO SCH (08:30)
[2022-07-02] MEDS: Celecoxib 200 MG Cap PO SCH ×2 (08:30→21:06)
[2022-07-02] MEDS: Docusate Sodium 100 MG Cap PO SCH ×2 (08:30→21:06)
[2022-07-02] MEDS: Bisacodyl 5 MG Tab PO SCH ×2 (08:30→21:06)
[2022-07-02] MEDS: Lisinopril 10 MG Tab PO SCH (08:35)
[2022-07-02] MEDS: Heparin Sodium 5,000 Units/ML Vial SUBCUT SCH ×2 (08:36→21:07)
[2022-07-02] MEDS ORDERED: Magnesium Hydroxide 400 MG/5 ML Susp 30 ML Cup PO PRN (08:49)
[2022-07-02] MEDS ORDERED: Magnesium Hydroxide 400 MG/5 ML Susp 30 ML Cup PO ONE (09:00)
[2022-07-02] MEDS: oxyCODONE 5 MG Tab PO PRN ×4 (10:33→23:20)
[2022-07-02] MEDS: Pantoprazole 40 MG Delayed-Release Granules 1 Packet PO SCH (16:38)
[2022-07-02] MEDS: Tamsulosin 0.4 MG Cap.ER PO SCH (21:06)
[2022-07-03] MEDS: Cyclobenzaprine 10 MG Tab PO PRN (04:07)
[2022-07-03] MEDS: Dextrose 5%-Lactated Ringers 1,000 ML IV SCH (04:08)
[2022-07-03] MEDS: Acetaminophen 500 MG Tab PO SCH ×3 (05:48→21:18)
[2022-07-03] MEDS: oxyCODONE 5 MG Tab PO PRN ×5 (05:48→22:32)
[2022-07-03] MEDS: Citalopram 20 MG Tab PO SCH (08:46)
[2022-07-03] MEDS: Celecoxib 200 MG Cap PO SCH ×2 (08:46→21:17)
[2022-07-03] MEDS: Heparin Sodium 5,000 Units/ML Vial SUBCUT SCH ×2 (08:48→21:18)
[2022-07-03] MEDS: Docusate Sodium 100 MG Cap PO SCH ×2 (08:48→21:18)
[2022-07-03] MEDS: Bisacodyl 5 MG Tab PO SCH ×2 (08:48→21:18)
[2022-07-03] MEDS: Lisinopril 10 MG Tab PO SCH (08:49)
[2022-07-03] MEDS ORDERED: Sodium Chloride 0.9% 10 ML Syringe IV PRN (08:52)
[2022-07-03] MEDS ORDERED: Magnesium Hydroxide 400 MG/5 ML Susp 30 ML Cup PO ONE (09:00)
[2022-07-03] MEDS: Pantoprazole 40 MG Delayed-Release Granules 1 Packet PO SCH (17:14)
[2022-07-03] MEDS: Tamsulosin 0.4 MG Cap.ER PO SCH (21:17)
[2022-07-04] MEDS: oxyCODONE 5 MG Tab PO PRN ×3 (02:31→10:39)
[2022-07-04 06:30] VITALS: PULSE 81
[2022-07-04] MEDS: Acetaminophen 500 MG Tab PO SCH (06:33)
[2022-07-04] MEDS: Docusate Sodium 100 MG Cap PO SCH (09:44)
[2022-07-04] MEDS: Celecoxib 200 MG Cap PO SCH (09:44)
[2022-07-04] MEDS: Citalopram 20 MG Tab PO SCH (09:44)
[2022-07-04] MEDS: Heparin Sodium 5,000 Units/ML Vial SUBCUT SCH (09:45)
[2022-07-04] MEDS: Lisinopril 10 MG Tab PO SCH (09:45)
[2022-07-04] MEDS: Bisacodyl 5 MG Tab PO SCH (09:45)
[2022-07-04 09:50] VITALS: BP 110/73
== END 2022-07-04 10:52 | disposition home or self-care (01) | DRG 220 ==
LOC: JP.SDSSCHI 08:26 → JP.MS 13:35
PROVIDERS: ADMIT Surgery; ATTEND Surgery
PROC: 0BUT0JZ Supplement Diaphragm with Synthetic Substitute, Open Approach (ICD-10-PCS; principal; 2022-06-28)
PROC: 0DB40ZZ Excision of Esophagogastric Junction, Open Approach (ICD-10-PCS; 2022-06-28)
PROC: 0DB60ZZ Excision of Stomach, Open Approach (ICD-10-PCS; 2022-06-28)
PROC: 0D150ZA Bypass Esophagus to Jejunum, Open Approach (ICD-10-PCS; 2022-06-28)
PROC: 0FT20ZZ Resection of Left Lobe Liver, Open Approach (ICD-10-PCS; 2022-06-28)
PROC: 0DT80ZZ Resection of Small Intestine, Open Approach (ICD-10-PCS; 2022-06-28)
DX: K44.9 Diaphragmatic hernia without obstruction or gangrene (principal); K21.9 Gastro-esophageal reflux disease without esophagitis; F32.A Depression, unspecified; F41.9 Anxiety disorder, unspecified; G89.29 Other chronic pain; M54.9 Dorsalgia, unspecified; G43.909 Migraine, unspecified, not intractable, without status migrainosus; I10 Essential (primary) hypertension; Z90.49 Acquired absence of other specified parts of digestive tract; Z90.710 Acquired absence of both cervix and uterus; Z90.722 Acquired absence of ovaries, bilateral; Z98.890 Other specified postprocedural states
CPT/HCPCS: 36415; 74240; 74240-26; 80053; 83735; 84100; 85027; 88305; 88307; 88342; 94667; A9270-GY; C1781; C9113; J0171; J0330; J0461; J0694; J1100; J1170; J1644; J2020; J2185; J2405; J2704; J2710; J2765; J2795; J3010; J3410; J3411; J3420; J3490; J7120; J7121; Q0162; Q9967

== ENCOUNTER 2022-07-17 12:43 | Emergency (ER) | payer BC ==
[2022-07-17] MEDS ORDERED: Sodium Chloride 0.9% 10 ML Syringe FLUSH PRN (13:33)
[2022-07-17] MEDS ORDERED: Lactated Ringers 1,000 ML IV SCH (13:45)
[2022-07-17 13:49] VITALS: BP 97/59; PULSE 111
[2022-07-17 14:11] LABS: ESTIMATED GFR 68 mL/min (>60); TROPONIN I HIGH SENSITIVITY 4.9 pg/mL (<=60.3)
[2022-07-17] MEDS ORDERED: Sodium Chloride 0.9% 10 ML Syringe FLUSH ONE (14:34)
[2022-07-17] MEDS ORDERED: Sodium Chloride 0.9% 75 ML IV SCH (14:45)
[2022-07-17] MEDS ORDERED: Iopamidol 755 Mg/ML 100 ML Bottle IV SCH (14:45)
== END 2022-07-17 16:32 | disposition home or self-care (01) ==
LOC: JP.ED 12:43
DX: R55 Syncope and collapse (principal); I10 Essential (primary) hypertension; K21.9 Gastro-esophageal reflux disease without esophagitis; Z79.899 Other long term (current) drug therapy
CPT/HCPCS: 36415; 71275; 80053; 83690; 84484; 85025; 93005; 96360; 99284; J3490; J7120; Q9967

== ENCOUNTER 2022-07-18 11:32 | Inpatient (IN) | payer BC, MEDICAID ==
[2022-07-18] MEDS ORDERED: Lactated Ringers 1,000 ML IV SCH (12:00)
[2022-07-18] MEDS ORDERED: Ondansetron 4 MG/2 ML SDV IVPUSH ONE (12:00)
[2022-07-18 12:17] LABS: ESTIMATED GFR 89 mL/min (>60)
[2022-07-18] MEDS ORDERED: MVI, Adult with Vitamin K 10 ML, Thiamine 200 MG, Zinc/Copper/Manganese/Selenium 1 ML i... IV ONE ×4 (13:00)
[2022-07-18] MEDS ORDERED: Naloxone 0.4 MG/ML SDV IV PRN (15:30)
[2022-07-18] MEDS: Magnesium Sulfate/Water 2 GM in Premix Bag 1 BAG IV SCH (17:56)
[2022-07-18] MEDS: Pantoprazole 40 MG Vial IV SCH (17:56)
[2022-07-18] MEDS: Acetaminophen 325 MG Tab PO SCH (17:56)
[2022-07-18] MEDS: HYDROmorphone/Normal Saline 6 MG/30 ML PCA Vial IV PRN ×2 (17:56→21:55)
[2022-07-18] MEDS: Potassium Phos in 0.9 % NaCl 15 MMOL in Premix Bag 1 BAG IV SCH ×4 (17:56→21:19)
[2022-07-18] MEDS ORDERED: Sodium Chloride 0.9% 1,000 ML IV ONE (20:36)
[2022-07-18] MEDS: Ondansetron 4 MG/2 ML SDV IVPUSH PRN (23:14)
[2022-07-19] MEDS: Potassium Phos in 0.9 % NaCl 15 MMOL in Premix Bag 1 BAG IV SCH ×2 (01:23)
[2022-07-19] MEDS: Acetaminophen 325 MG Tab PO SCH ×3 (01:24→17:19)
[2022-07-19 02:09] LABS: CORONAVIRUS COVID-19 NAA NEGATIVE (NEGATIVE)
[2022-07-19] MEDS: HYDROmorphone/Normal Saline 6 MG/30 ML PCA Vial IV PRN ×3 (02:23→17:08)
[2022-07-19] MEDS: Dextrose 5%-Lactated Ringers 1,000 ML IV SCH ×3 (04:15→13:34)
[2022-07-19] MEDS: Ondansetron 4 MG/2 ML SDV IVPUSH PRN ×4 (04:20→23:09)
[2022-07-19 05:05] LABS: ESTIMATED GFR 108 mL/min (>60)
[2022-07-19] MEDS: Magnesium Sulfate/Water 2 GM in Premix Bag 1 BAG IV SCH ×5 (05:18→19:21)
[2022-07-19] MEDS ORDERED: fentaNYL 100 MCG/2 ML SDV ONE (08:18)
[2022-07-19] MEDS ORDERED: Midazolam 1 MG/ML 2 ML SDV ONE (08:18)
[2022-07-19] MEDS ORDERED: Propofol 200 MG/20 ML SDV ONE ×2 (08:18→11:52)
[2022-07-19] MEDS ORDERED: Lidocaine 1% with EPINEPHrine 1:100,000 50 ML MDV ONE (09:02)
[2022-07-19] MEDS ORDERED: Meropenem 500 MG SDV ONE (10:07)
[2022-07-19] MEDS ORDERED: Bupivacaine 0.5%/EPINEPHrine 1:200,000 50 ML MDV ONE (10:08)
[2022-07-19] MEDS ORDERED: Bupivacaine 0.5% 50 ML MDV ONE (10:25)
[2022-07-19] MEDS: Citalopram 20 MG Tab PO SCH (11:04)
[2022-07-19] MEDS ORDERED: Dextrose 5%-Lactated Ringers 1,000 ML IV SCH (14:00)
[2022-07-19] MEDS: 1: AA 5%/Calcium/D15W/Lytes 1,000 ML with MVI, Adult with Vitamin K 10 ML, Zinc/Copper/M IV SCH ×3 (14:23)
[2022-07-19] MEDS: Lidocaine 2% 60 ML, Alum Hydrox/Mag Hydrox/Simeth 360 ML PO PRN ×6 (15:05→20:27)
[2022-07-19] MEDS ORDERED: Fat Emulsion 100 ML IV SCH (16:00)
[2022-07-19] MEDS ORDERED: HYDROmorphone 0.5 MG/0.5 ML Syringe IVPUSH ONE (16:04)
[2022-07-19] MEDS ORDERED: Divalproex Sodium Delayed-Release 125 MG Cap.Sprink PO SCH (17:00)
[2022-07-19] MEDS: Pantoprazole 40 MG Vial IV SCH (17:19)
[2022-07-19] MEDS ORDERED: Polyethylene Glycol 3350 Powder 17 GM Packet PO SCH (19:15)
[2022-07-19] MEDS: Albuterol/Ipratropium 3.0-0.5 MG/3 ML Neb Soln NEB PRN (19:20)
[2022-07-19] MEDS: Celecoxib 200 MG Cap PO SCH (20:32)
[2022-07-19] MEDS ORDERED: Racepinephrine 2.25% 0.5 ML Neb Soln ONE (23:53)
[2022-07-20] MEDS ORDERED: methylPREDNISolone Sodium Succinate 125 MG/2 ML SDV IVPUSH ONE
[2022-07-20] MEDS ORDERED: Racepinephrine 2.25% 0.5 ML Neb Soln NEB ONE
[2022-07-20] MEDS ORDERED: methylPREDNISolone Sodium Succinate 125 MG/2 ML SDV ONE
[2022-07-20] MEDS ORDERED: Iopamidol 612 MG/ML 100 ML Bottle IV STA (00:09)
[2022-07-20] MEDS ORDERED: Sodium Chloride 0.9% 50 ML IV SCH (00:15)
[2022-07-20] MEDS ORDERED: propofoL 100 ML ONE (00:43)
[2022-07-20] MEDS ORDERED: Heparin Sodium 5,000 Units/ML Vial ONE (01:10)
[2022-07-20] MEDS ORDERED: Heparin Sodium 5,000 UNITS in Sodium Chloride 0.9% 500 ML IV SCH (01:15)
[2022-07-20] MEDS: propofoL 100 ML IV SCH ×8 (01:15→23:45)
[2022-07-20] MEDS ORDERED: Propofol 200 MG/20 ML SDV ONE (01:33)
[2022-07-20] MEDS ORDERED: Succinylcholine 200 MG/10 ML MDV ONE (01:33)
[2022-07-20] MEDS: 1: AA 5%/Calcium/D15W/Lytes 1,000 ML with MVI, Adult with Vitamin K 10 ML, Zinc/Copper/M IV SCH ×3 (01:44)
[2022-07-20 02:22] LABS: ESTIMATED GFR 104 mL/min (>60)
[2022-07-20] MEDS: diphenhydrAMINE 50 MG/ML SDV IVPUSH SCH ×4 (02:39→19:16)
[2022-07-20] MEDS: Meropenem 1 GM in Sodium Chloride 0.9% 100 ML IV SCH ×3 (02:40→17:28)
[2022-07-20] MEDS: Acetaminophen 325 MG Tab PO SCH ×3 (02:41→17:18)
[2022-07-20] MEDS: Linezolid 600 MG in Premix Bag 1 BAG IV SCH ×2 (02:46→14:16)
[2022-07-20] MEDS: Magnesium Sulfate/Water 2 GM in Premix Bag 1 BAG IV SCH ×4 (02:58→19:27)
[2022-07-20] MEDS ORDERED: Famotidine 20 MG/2 ML SDV IVPUSH SCH (03:00)
[2022-07-20] MEDS ORDERED: Sodium Chloride 0.9% Inhalation Soln 3 ML Neb INH PRN (03:14)
[2022-07-20] MEDS ORDERED: Sodium Chloride 0.9% 1,000 ML IV SCH (03:30)
[2022-07-20] MEDS: HYDROmorphone/Normal Saline 6 MG/30 ML PCA Vial IV PRN (04:00)
[2022-07-20] MEDS: Albuterol/Ipratropium 3.0-0.5 MG/3 ML Neb Soln NEB SCH ×4 (07:45→20:54)
[2022-07-20] MEDS ORDERED: Central Total Parenteral Nutrition Bag SCH (07:45)
[2022-07-20] MEDS: methylPREDNISolone Sodium Succinate 40 MG/1 ML SDV IVPUSH SCH ×2 (08:14→17:14)
[2022-07-20] MEDS: Citalopram 20 MG Tab PO SCH (10:30)
[2022-07-20] MEDS: Celecoxib 200 MG Cap PO SCH ×2 (10:30→20:54)
[2022-07-20] MEDS ORDERED: Furosemide 20 MG/2 ML VIAL IVPUSH ONE ×2 (15:00→20:51)
[2022-07-20] MEDS: Famotidine 20 MG/2 ML SDV IVPUSH SCH (15:02)
[2022-07-20] MEDS ORDERED: 1: AA 5%/Calcium/D15W/Lytes 1,000 ML with MVI, Adult with Vitamin K 10 ML, Zinc/Copper/M IV SCH ×3 (16:00)
[2022-07-20] MEDS: Pantoprazole 40 MG Vial IV SCH (17:28)
[2022-07-20] MEDS: Albuterol/Ipratropium 3.0-0.5 MG/3 ML Neb Soln NEB PRN (20:04)
[2022-07-20] MEDS ORDERED: Furosemide 20 MG/2 ML VIAL ONE (20:56)
[2022-07-21] MEDS: methylPREDNISolone Sodium Succinate 40 MG/1 ML SDV IVPUSH SCH ×2 (00:43→09:13)
[2022-07-21] MEDS: propofoL 100 ML IV SCH ×7 (02:57→23:33)
[2022-07-21] MEDS: Meropenem 1 GM in Sodium Chloride 0.9% 100 ML IV SCH ×3 (02:59→17:31)
[2022-07-21] MEDS: diphenhydrAMINE 50 MG/ML SDV IVPUSH SCH ×2 (03:02→09:11)
[2022-07-21] MEDS: Acetaminophen 325 MG Tab PO SCH ×3 (03:03→17:31)
[2022-07-21] MEDS: Magnesium Sulfate/Water 2 GM in Premix Bag 1 BAG IV SCH ×4 (03:03→20:03)
[2022-07-21] MEDS: Linezolid 600 MG in Premix Bag 1 BAG IV SCH ×2 (03:03→14:34)
[2022-07-21] MEDS: Famotidine 20 MG/2 ML SDV IVPUSH SCH (03:04)
[2022-07-21] MEDS: Furosemide 20 MG/2 ML VIAL IVPUSH SCH ×3 (04:51→20:04)
[2022-07-21 04:59] LABS: ESTIMATED GFR 89 mL/min (>60)
[2022-07-21] MEDS: Albuterol/Ipratropium 3.0-0.5 MG/3 ML Neb Soln NEB SCH ×4 (07:06→20:04)
[2022-07-21] MEDS ORDERED: Iopamidol 612 MG/ML 100 ML Bottle IV PRN (08:48)
[2022-07-21] MEDS ORDERED: Sodium Chloride 0.9% 50 ML IV ONE (08:48)
[2022-07-21] MEDS: Citalopram 20 MG Tab PO SCH (11:13)
[2022-07-21] MEDS: Celecoxib 200 MG Cap PO SCH ×2 (11:13→20:04)
[2022-07-21] MEDS: HYDROmorphone/Normal Saline 6 MG/30 ML PCA Vial IV PRN (12:49)
[2022-07-21] MEDS: Pantoprazole 40 MG Vial IV SCH (17:28)
[2022-07-22] MEDS: Meropenem 1 GM in Sodium Chloride 0.9% 100 ML IV SCH ×3 (01:13→17:04)
[2022-07-22] MEDS: Magnesium Sulfate/Water 2 GM in Premix Bag 1 BAG IV SCH ×3 (01:13→14:10)
[2022-07-22] MEDS: Acetaminophen 325 MG Tab PO SCH ×3 (01:17→17:04)
[2022-07-22] MEDS: Linezolid 600 MG in Premix Bag 1 BAG IV SCH ×2 (02:29→14:12)
[2022-07-22] MEDS: propofoL 100 ML IV SCH ×7 (02:32→21:29)
[2022-07-22 05:02] LABS: ESTIMATED GFR 104 mL/min (>60)
[2022-07-22] MEDS: Furosemide 20 MG/2 ML VIAL IVPUSH SCH ×3 (05:13→21:30)
[2022-07-22] MEDS: Albuterol/Ipratropium 3.0-0.5 MG/3 ML Neb Soln NEB SCH ×4 (07:06→21:30)
[2022-07-22] MEDS: Celecoxib 200 MG Cap PO SCH ×2 (08:28→21:30)
[2022-07-22] MEDS: Citalopram 20 MG Tab PO SCH (08:28)
[2022-07-22] MEDS ORDERED: Potassium Phosphates 3 mMole/ML 15 ML SDV IV ONE (09:00)
[2022-07-22] MEDS: Potassium Phosphates 20 MMOLE in Sodium Chloride 0.9% 100 ML IV SCH ×3 (09:20→15:26)
[2022-07-22] MEDS ORDERED: LORazepam 2 MG/ML SDV IVPUSH PRN (13:37)
[2022-07-22] MEDS: LORazepam 2 MG/ML SDV IVPUSH PRN (14:08)
[2022-07-22] MEDS: Heparin Sodium 5,000 UNITS in Sodium Chloride 0.9% 500 ML IV SCH ×2 (14:32→15:28)
[2022-07-22] MEDS ORDERED: Albuterol/Ipratropium 3.0-0.5 MG/3 ML Neb Soln ONE (14:32)
[2022-07-22] MEDS: Pantoprazole 40 MG Vial IV SCH (17:01)
[2022-07-22] MEDS: HYDROmorphone/Normal Saline 6 MG/30 ML PCA Vial IV PRN (19:27)
[2022-07-23] MEDS: propofoL 100 ML IV SCH ×3 (00:26→05:37)
[2022-07-23] MEDS: LORazepam 2 MG/ML SDV IVPUSH PRN (00:38)
[2022-07-23] MEDS: Acetaminophen 325 MG Tab PO SCH ×3 (01:37→19:00)
[2022-07-23] MEDS: Meropenem 1 GM in Sodium Chloride 0.9% 100 ML IV SCH ×2 (01:39→09:36)
[2022-07-23] MEDS: Linezolid 600 MG in Premix Bag 1 BAG IV SCH ×2 (02:37→14:05)
[2022-07-23] MEDS: Furosemide 20 MG/2 ML VIAL IVPUSH SCH ×3 (04:51→20:51)
[2022-07-23 05:22] LABS: ESTIMATED GFR 108 mL/min (>60)
[2022-07-23] MEDS: Albuterol/Ipratropium 3.0-0.5 MG/3 ML Neb Soln NEB SCH ×4 (07:34→20:52)
[2022-07-23] MEDS: Celecoxib 200 MG Cap PO SCH ×2 (09:27→20:50)
[2022-07-23] MEDS: Citalopram 20 MG Tab PO SCH (09:27)
[2022-07-23] MEDS: Potassium Chloride 10 MEQ in Premix Bag 1 BAG IV SCH ×2 (09:36→10:39)
[2022-07-23] MEDS ORDERED: Potassium Chloride Riders 40 MEQ in Premix Bag 1 BAG IV ONE ×2 (10:00→11:00)
[2022-07-23] MEDS ORDERED: Haloperidol Lactate 5 MG/ML SDV ONE (12:30)
[2022-07-23] MEDS ORDERED: Haloperidol Lactate 5 MG/ML SDV IVPUSH ONE (12:36)
[2022-07-23] MEDS ORDERED: DEXTROSE 15% IV SCH ×8 (14:00)
[2022-07-23] MEDS ORDERED: AMINO ACIDS IV SCH ×8 (14:00)
[2022-07-23] MEDS ORDERED: MVI IV SCH ×8 (14:00)
[2022-07-23] MEDS ORDERED: VITAMIN K IV SCH ×8 (14:00)
[2022-07-23] MEDS ORDERED: ZINC IV SCH ×8 (14:00)
[2022-07-23] MEDS ORDERED: COPP IV SCH ×8 (14:00)
[2022-07-23] MEDS: Haloperidol Lactate 5 MG/ML SDV IVPUSH PRN (18:45)
[2022-07-23] MEDS: Pantoprazole 40 MG Vial IV SCH (18:55)
[2022-07-24] MEDS: Linezolid 600 MG in Premix Bag 1 BAG IV SCH (01:22)
[2022-07-24] MEDS: Acetaminophen 325 MG Tab PO SCH ×3 (01:22→18:38)
[2022-07-24] MEDS: Furosemide 20 MG/2 ML VIAL IVPUSH SCH (04:43)
[2022-07-24 05:14] LABS: ESTIMATED GFR 108 mL/min (>60)
[2022-07-24] MEDS: Albuterol/Ipratropium 3.0-0.5 MG/3 ML Neb Soln NEB SCH (07:19)
[2022-07-24] MEDS: Celecoxib 200 MG Cap PO SCH (08:30)
[2022-07-24] MEDS: Citalopram 20 MG Tab PO SCH (08:31)
[2022-07-24] MEDS ORDERED: Potassium Chloride Riders 40 MEQ in Premix Bag 1 BAG IV ONE (10:00)
[2022-07-24] MEDS ORDERED: LORazepam 0.5 MG Tab PO PRN (10:02)
[2022-07-24] MEDS: MVI IV SCH ×8 (15:30)
[2022-07-24] MEDS: VITAMIN K IV SCH ×8 (15:30)
[2022-07-24] MEDS: ZINC IV SCH ×8 (15:30)
[2022-07-24] MEDS: DEXTROSE 15% IV SCH ×8 (15:30)
[2022-07-24] MEDS: COPP IV SCH ×8 (15:30)
[2022-07-24] MEDS: AMINO ACIDS IV SCH ×8 (15:30)
[2022-07-24] MEDS: oxyCODONE 5 MG Tab PO PRN ×2 (15:32→18:50)
[2022-07-24] MEDS: Pantoprazole 40 MG Vial IV SCH (18:35)
[2022-07-24] MEDS: LORazepam 2 MG/ML SDV IVPUSH PRN (21:15)
[2022-07-24] MEDS: Haloperidol Lactate 5 MG/ML SDV IVPUSH PRN (21:15)
[2022-07-25] MEDS: Acetaminophen 325 MG Tab PO SCH ×3 (01:22→17:04)
[2022-07-25] MEDS: oxyCODONE 5 MG Tab PO PRN ×6 (01:28→23:39)
[2022-07-25 05:07] LABS: ESTIMATED GFR 113 mL/min (>60)
[2022-07-25] MEDS: Citalopram 20 MG Tab PO SCH (09:25)
[2022-07-25] MEDS: MVI IV SCH ×8 (11:25)
[2022-07-25] MEDS: AMINO ACIDS IV SCH ×8 (11:25)
[2022-07-25] MEDS: DEXTROSE 15% IV SCH ×8 (11:25)
[2022-07-25] MEDS: VITAMIN K IV SCH ×8 (11:25)
[2022-07-25] MEDS: ZINC IV SCH ×8 (11:25)
[2022-07-25] MEDS: COPP IV SCH ×8 (11:25)
[2022-07-25] MEDS ORDERED: SODIUM PHOSPHATE IV SCH (13:00)
[2022-07-25] MEDS: LORazepam 0.5 MG Tab PO PRN ×3 (13:00→20:56)
[2022-07-25] MEDS ORDERED: SODIUM CHLORIDE IV SCH (13:00)
[2022-07-25] MEDS: SODIUM PHOSPHATE IV SCH ×2 (13:16→16:56)
[2022-07-25] MEDS: SODIUM CHLORIDE IV SCH ×2 (13:16→16:56)
[2022-07-25] MEDS ORDERED: Pantoprazole 40 MG Tab.CR PO SCH (16:30)
[2022-07-25] MEDS ORDERED: Fat Emulsion 100 ML IV SCH (18:00)
[2022-07-26] MEDS: Acetaminophen 325 MG Tab PO SCH (04:10)
[2022-07-26] MEDS: oxyCODONE 5 MG Tab PO PRN ×2 (04:10→08:11)
[2022-07-26 05:32] LABS: ESTIMATED GFR 119 mL/min (>60)
[2022-07-26] MEDS ORDERED: Central Total Parenteral Nutrition Bag SCH (07:30)
[2022-07-26 07:54] VITALS: BP 99/75; PULSE 102
[2022-07-26] MEDS ORDERED: 1: Amino Acids 5%/Dextrose 15% 1,000 ML with MVI, Adult with Vitamin K 10 ML, Zinc/Copp IV SCH ×8 (08:00)
[2022-07-26] MEDS: Citalopram 20 MG Tab PO SCH (08:12)
[2022-07-26] MEDS ORDERED: Magnesium Sulfate/Water 2 GM in Premix Bag 1 BAG IV SCH (08:15)
[2022-07-26] MEDS ORDERED: Magnesium Oxide 400 MG Tab PO SCH (09:00)
== END 2022-07-26 08:30 | disposition home or self-care (01) | DRG 641 ==
LOC: JP.ACU 11:32 → JP.MS 15:00 → JP.ICU 07-20 02:27
PROVIDERS: ADMIT Surgery; ATTEND Physician Assistant Medical
PROC: 05H433Z Insertion of Infusion Device into Left Innominate Vein, Percutaneous Approach (ICD-10-PCS; principal; 2022-07-19)
PROC: 05PY33Z Removal of Infusion Device from Upper Vein, Percutaneous Approach (ICD-10-PCS; 2022-07-20)
PROC: 0BH18EZ Insertion of Endotracheal Airway into Trachea, Via Natural or Artificial Opening Endoscopic (ICD-10-PCS; 2022-07-20)
PROC: 5A1945Z Respiratory Ventilation, 24-96 Consecutive Hours (ICD-10-PCS; 2022-07-20)
PROC: 03HY32Z Insertion of Monitoring Device into Upper Artery, Percutaneous Approach (ICD-10-PCS; 2022-07-20)
PROC: 3E0336Z Introduction of Nutritional Substance into Peripheral Vein, Percutaneous Approach (ICD-10-PCS; 2022-07-20)
DX: E86.0 Dehydration (principal); E46 Unspecified protein-calorie malnutrition; J98.8 Other specified respiratory disorders; Z20.822 Contact with and (suspected) exposure to COVID-19; R06.1 Stridor; F41.9 Anxiety disorder, unspecified; M54.6 Pain in thoracic spine; R51.9 Headache, unspecified; F29 Unspecified psychosis not due to a substance or known physiological condition; F32.9 Major depressive disorder, single episode, unspecified; R73.03 Prediabetes; M47.816 Spondylosis without myelopathy or radiculopathy, lumbar region; M25.511 Pain in right shoulder; G89.29 Other chronic pain; E74.39 Other disorders of intestinal carbohydrate absorption; Z98.84 Bariatric surgery status; Z79.899 Other long term (current) drug therapy; Z68.24 Body mass index [BMI] 24.0-24.9, adult
CPT/HCPCS: 0241U; 36415; 36569; 51702; 70491; 71045; 71045-26; 71046; 71046-26; 71260; 74018; 74018-26; 77001; 80048; 80053; 81001; 82803; 83735; 83880; 84100; 84134; 85025; 85027; 86850; 86900; 86901; 86920; 86922; 93005; 93010; 94002; 94003; 94640; 97163-GP; 97530-GP; 99232; A9270-GY; C1751; C9113; J0330; J0610; J1170; J1200; J1630; J1642; J1644; J1940; J2020; J2060; J2185; J2250; J2405; J2704; J2920; J2930; J3010; J3411; J3475; J3480; J3490; J7030; J7040; J7120; J7121; J7131; J7620; Q9967

== ENCOUNTER 2022-08-04 08:37 | Day surgery (SDC) | payer MEDICAID ==
[~2022-08-04 08:37] MED LIST changes: -Dexamethasone 4 MG/ML SDV ONE; -Glycopyrrolate 0.2 MG/ML 5 ML MDV ONE; +Midazolam 1 MG/ML 2 ML SDV ONE; -Neostigmine Methylsulfate 1 MG/ML 5 ML Syringe ONE; -Ondansetron 4 MG/2 ML SDV ONE; -Rocuronium 50 MG/5 ML Vial ONE; -Succinylcholine 200 MG/10 ML MDV ONE; +fentaNYL 100 MCG/2 ML SDV ONE; -fentaNYL 250 MCG/5 ML SDV ONE
[2022-08-04] MEDS ORDERED: Cyanocobalamin (Vitamin B12) 1,000 MCG/ML SDV IM ONE (09:00)
[2022-08-04] MEDS ORDERED: Lactated Ringers 1,000 ML IV SCH (09:00)
[2022-08-04] MEDS ORDERED: MVI, Adult with Vitamin K 10 ML, Thiamine 200 MG, Zinc/Copper/Manganese/Selenium 1 ML i... IV ONE ×4 (10:00)
[2022-08-04] MEDS ORDERED: Dexamethasone 4 MG/ML SDV ONE (11:50)
[2022-08-04 12:35] VITALS: BP 105/67; PULSE 74
== END 2022-08-04 12:48 | disposition home or self-care (01) ==
LOC: JP.SDS 08:37
PROVIDERS: ATTEND Surgery
DX: K91.89 Other postprocedural complications and disorders of digestive system (principal); K22.2 Esophageal obstruction; Z98.0 Intestinal bypass and anastomosis status
CPT/HCPCS: 43245; C1726; J1100; J2250; J2704; J3010; J3411; J3420; J7120; J3490

== ENCOUNTER 2022-08-13 11:53 | Emergency (ER) | payer BC ==
[2022-08-13 13:19] LABS: ESTIMATED GFR 104 mL/min (>60)
[2022-08-13] MEDS ORDERED: HYDROmorphone 1 MG/ML Syringe IM ONE (13:56)
[2022-08-13] MEDS ORDERED: cefTRIAXone 1 GM in Sodium Chloride 0.9% 50 ML IV ONE (14:04)
[2022-08-13] MEDS ORDERED: Sodium Chloride 0.9% 1,000 ML IV SCH (14:15)
[2022-08-13 15:03] VITALS: BP 117/75; PULSE 98
== END 2022-08-13 15:40 | disposition home or self-care (01) ==
LOC: JP.ED 11:53
DX: N30.01 Acute cystitis with hematuria (principal); I10 Essential (primary) hypertension; K21.9 Gastro-esophageal reflux disease without esophagitis; Z79.899 Other long term (current) drug therapy; Z90.710 Acquired absence of both cervix and uterus; Z90.722 Acquired absence of ovaries, bilateral
CPT/HCPCS: 36415; 80053; 81001; 83690; 84484; 85025; 85379; 87086; 87088; 87186; 96365; 96372; 99283; J0696; J1170; J1790; J7030

== ENCOUNTER 2022-08-15 06:46 | Day surgery (SDC) | payer BC ==
[2022-08-15] MEDS ORDERED: Midazolam 1 MG/ML 2 ML SDV ONE (07:25)
[2022-08-15] MEDS ORDERED: fentaNYL 50 MCG/ML SDV ONE (07:25)
[2022-08-15] MEDS ORDERED: Propofol 200 MG/20 ML SDV ONE (07:25)
[2022-08-15] MEDS ORDERED: Lactated Ringers 1,000 ML IV ONE (07:30)
[2022-08-15] MEDS ORDERED: Cyanocobalamin (Vitamin B12) 1,000 MCG/ML SDV IM ONE (08:00)
[2022-08-15] MEDS ORDERED: MVI, Adult with Vitamin K 10 ML, Thiamine 200 MG, Zinc/Copper/Manganese/Selenium 1 ML i... IV ONE ×4 (08:30)
[2022-08-15 11:19] VITALS: BP 117/78; PULSE 68
== END 2022-08-15 11:20 | disposition home or self-care (01) ==
LOC: JP.SDS 06:46
PROVIDERS: ATTEND Student in an Organized Health Care Education/Training Program
DX: K94.23 Gastrostomy malfunction (principal); R13.10 Dysphagia, unspecified; K90.9 Intestinal malabsorption, unspecified; Z87.19 Personal history of other diseases of the digestive system; Z79.899 Other long term (current) drug therapy
CPT/HCPCS: 43220; J2250; J2704; J3010; J3411; J3420; J7120; J3490

== ENCOUNTER 2022-08-25 05:51 | Day surgery (SDC) | payer BC ==
[2022-08-25] MEDS ORDERED: Lactated Ringers 1,000 ML IV SCH (06:30)
[2022-08-25] MEDS ORDERED: Cyanocobalamin (Vitamin B12) 1,000 MCG/ML SDV IM SCH (07:00)
[2022-08-25] MEDS ORDERED: Glycopyrrolate 0.2 MG/ML 2 ML SDV IVPUSH ONE (07:15)
[2022-08-25] MEDS ORDERED: Propofol 200 MG/20 ML SDV ONE (07:21)
[2022-08-25] MEDS ORDERED: fentaNYL 100 MCG/2 ML SDV ONE (07:21)
[2022-08-25] MEDS ORDERED: Midazolam 1 MG/ML 2 ML SDV ONE (07:22)
[2022-08-25] MEDS ORDERED: Dexamethasone 4 MG/ML SDV ONE (07:27)
[2022-08-25] MEDS ORDERED: MVI, Adult with Vitamin K 10 ML, Thiamine 200 MG, Chromium/Copper/Mang/Selen/Zn 1 ML in... IV ONE ×4 (07:30)
[2022-08-25] MEDS ORDERED: Ondansetron 4 MG/2 ML SDV IVPUSH ONE (08:40)
[2022-08-25] MEDS ORDERED: Scopolamine 1.5 MG Transdermal Patch TOP ONE (08:40)
[2022-08-25] MEDS ORDERED: Metoclopramide 10 MG/2 ML SDV IVPUSH ONE (08:50)
[2022-08-25 09:31] VITALS: PULSE 76
[2022-08-25 10:12] VITALS: BP 95/59
== END 2022-08-25 10:35 | disposition home or self-care (01) ==
LOC: JP.SDS 05:51
PROVIDERS: ATTEND Surgery
DX: K94.23 Gastrostomy malfunction (principal); R13.10 Dysphagia, unspecified; F41.9 Anxiety disorder, unspecified; F32.A Depression, unspecified; Z87.442 Personal history of urinary calculi; Z79.899 Other long term (current) drug therapy
CPT/HCPCS: 43249; A9270; C1726; J1100; J2250; J2405; J2704; J2765; J3010; J3411; J3420; J3490; J7120

== ENCOUNTER 2022-09-05 05:49 | Day surgery (SDC) | payer BC ==
[2022-09-05] MEDS ORDERED: Cyanocobalamin (Vitamin B12) 1,000 MCG/ML SDV IM ONE (06:30)
[2022-09-05] MEDS ORDERED: Lactated Ringers 1,000 ML IV ONE (06:30)
[2022-09-05] MEDS ORDERED: Glycopyrrolate 0.2 MG/ML 2 ML SDV IVPUSH ONE (07:00)
[2022-09-05] MEDS ORDERED: fentaNYL 100 MCG/2 ML SDV ONE (07:13)
[2022-09-05] MEDS ORDERED: Midazolam 1 MG/ML 2 ML SDV ONE ×2 (07:13→07:18)
[2022-09-05] MEDS ORDERED: Propofol 200 MG/20 ML SDV ONE (07:13)
[2022-09-05] MEDS ORDERED: Scopolamine 1.5 MG Transdermal Patch TOP SCH (07:15)
[2022-09-05] MEDS ORDERED: MVI, Adult with Vitamin K 10 ML, Thiamine 200 MG, Zinc/Copper/Manganese/Selenium 1 ML i... IV ONE ×4 (07:30)
[2022-09-05] MEDS ORDERED: Dexamethasone 4 MG/ML SDV ONE (07:31)
[2022-09-05] MEDS ORDERED: Ondansetron 4 MG/2 ML SDV ONE (07:31)
[2022-09-05 10:08] VITALS: BP 97/63; PULSE 79
== END 2022-09-05 10:27 | disposition home or self-care (01) ==
LOC: JP.SDS 05:49
PROVIDERS: ATTEND Surgery
DX: K22.2 Esophageal obstruction (principal)
CPT/HCPCS: 43245; A9270; C1726; J1100; J2250; J2405; J2704; J3010; J3411; J3420; J3490; J7120

== ENCOUNTER 2022-09-16 05:50 | Day surgery (SDC) | payer BC ==
[~2022-09-16 05:50] MED LIST changes: +Lactated Ringers 1,000 ML IV ONE; -Midazolam 1 MG/ML 2 ML SDV ONE; -Propofol 200 MG/20 ML SDV ONE; -fentaNYL 100 MCG/2 ML SDV ONE
[2022-09-16] MEDS ORDERED: Lactated Ringers 1,000 ML IV ONE (06:45)
[2022-09-16 06:47] LABS: ESTIMATED GFR 104 mL/min (>60)
[2022-09-16] MEDS ORDERED: Cyanocobalamin (Vitamin B12) 1,000 MCG/ML SDV IM ONE (07:00)
[2022-09-16] MEDS ORDERED: Midazolam 1 MG/ML 2 ML SDV ONE (07:05)
[2022-09-16] MEDS ORDERED: fentaNYL 50 MCG/ML SDV ONE (07:05)
[2022-09-16] MEDS ORDERED: Propofol 200 MG/20 ML SDV ONE (07:05)
[2022-09-16] MEDS ORDERED: Glycopyrrolate 0.2 MG/ML 2 ML SDV IVPUSH ONE (07:30)
[2022-09-16] MEDS ORDERED: MVI, Adult with Vitamin K 10 ML, Thiamine 200 MG, Zinc/Copper/Manganese/Selenium 1 ML i... IV ONE ×4 (07:45)
[2022-09-16] MEDS ORDERED: Metoclopramide 10 MG/2 ML SDV IVPUSH ONE (08:30)
[2022-09-16] MEDS ORDERED: Hyoscyamine 0.125 MG Tab.SL SL ONE (08:30)
[2022-09-16 08:55] VITALS: BP 108/79; PULSE 88
== END 2022-09-16 09:09 | disposition home or self-care (01) ==
LOC: JP.SDS 05:50
PROVIDERS: ATTEND Surgery
DX: K91.89 Other postprocedural complications and disorders of digestive system (principal); K22.2 Esophageal obstruction; Z98.0 Intestinal bypass and anastomosis status
CPT/HCPCS: 36415; 80053; 83735; 84100; 85027; A9270-GY; C1726; J2250; J2704; J2765; J3010; J3411; J3420; J3490; J7120

== ENCOUNTER 2022-09-26 10:37 | Inpatient (IN) | payer BC ==
[2022-09-26] MEDS ORDERED: Ondansetron 4 MG/2 ML SDV IVPUSH ONE (11:00)
[2022-09-26] MEDS ORDERED: Lactated Ringers 1,000 ML IV ONE (11:00)
[2022-09-26 11:06] LABS: HEMATOCRIT 35.4 % (34.3-46.0); HEMOGLOBIN 11.6 g/dL (11.2-15.5); MEAN CORPUSCULAR HEMOGLOBIN 31.4 pg (31.6-35.5); MEAN CORPUSCULAR HGB CONC 32.8 g/dL (31.6-35.5); MEAN CORPUSCULAR VOLUME 95.9 fL (81.4-99.0); RED BLOOD CELL COUNT 3.69 M/uL (3.77-5.24); WHITE BLOOD CELL COUNT,WBC 6.9 K/uL (3.2-11.0)
[2022-09-26 11:25] LABS: A/G RATIO 0.9 (1.2-2.2); ALANINE AMINOTRANSFERASE,ALT 47 U/L (12-78); ALBUMIN 3.4 g/dL (3.4-5.0); ALKALINE PHOSPHATASE 172 U/L (46-116); ANION GAP 13.3 mmol/L (5.0-14.0); ASPARTATE AMNIOTRANSFERASE,AST 35 U/L (15-37); BILIRUBIN TOTAL 0.3 mg/dL (0.2-1.0); BLOOD UREA NITROGEN,BUN 18 mg/dL (7-18); CARBON DIOXIDE,CO2 22 mmol/L (21-32); CHLORIDE,CL 102 mmol/L (100-108); CREATININE 0.7 mg/dL (0.6-1.0); EST CRCL DRUG DOSING (CG) 81.18 mL/min; ESTIMATED GFR 104 mL/min (>60); GLUCOSE RANDOM 106 mg/dL (74-106); MAGNESIUM 1.3 mg/dL (1.8-2.4); PHOSPHORUS 2.9 mg/dL (2.5-4.9); POTASSIUM,K 3.3 mmol/L (3.6-5.2); SODIUM,NA 134 mmol/L (140-148)
[2022-09-26] MEDS ORDERED: MVI, Adult with Vitamin K 10 ML, Magnesium Sulfate 2 GM, Folic Acid 1 MG, Thiamine 100 ... IV ONE ×5 (12:00)
[2022-09-26] MEDS ORDERED: Acetaminophen 1,000 MG in Premix Bag 1 BAG IV ONE (12:00)
[2022-09-26] MEDS ORDERED: Potassium Chloride 20 MEQ, Lidocaine 1% 2 ML in Sodium Chloride 0.9% 100 ML IV ONE (12:15)
[2022-09-26] MEDS ORDERED: LIDOCAINE 1% IV ONE (12:30)
[2022-09-26] MEDS ORDERED: POTASSIUM CHLORIDE IV ONE (12:30)
[2022-09-26] MEDS ORDERED: Scopolamine 1.5 MG Transdermal Patch TOP ONE (14:40)
[2022-09-26] MEDS ORDERED: HYDROmorphone 0.5 MG/0.5 ML Syringe IVPUSH ONE (14:40)
[2022-09-26] MEDS: LORazepam 2 MG/ML SDV IV PRN ×2 (15:39→18:22)
[2022-09-26] MEDS ORDERED: hydrOXYzine HCl 25 MG Tab PO PRN (15:57)
[2022-09-26] MEDS: Pantoprazole 40 MG Vial IV SCH (16:13)
[2022-09-26] MEDS: Ondansetron 4 MG/2 ML SDV IVPUSH PRN (16:19)
[2022-09-26] MEDS: hydrOXYzine HCl 50 MG/ML SDV IM PRN (16:40)
[2022-09-26] MEDS: Dextrose 5%-Lactated Ringers 1,000 ML IV SCH (16:43)
[2022-09-26] MEDS ORDERED: diphenhydrAMINE 25 MG Cap PO PRN (16:50)
[2022-09-26] MEDS ORDERED: Naloxone 0.4 MG/ML SDV IVPUSH PRN (16:50)
[2022-09-26] MEDS ORDERED: diphenhydrAMINE 50 MG/ML SDV IVPUSH PRN (16:50)
[2022-09-26] MEDS: HYDROmorphone/Normal Saline 6 MG/30 ML PCA Vial IV PRN ×2 (17:10→20:55)
[2022-09-26] MEDS: VERIFY SCOP PATCH TOP SCH (17:13)
[2022-09-26] MEDS ORDERED: Acetaminophen 650 MG Supp RECTAL PRN (18:00)
[2022-09-26] MEDS: Acetaminophen 325 MG Tab PO PRN (18:23)
[2022-09-26] MEDS ORDERED: HYDROmorphone 0.5 MG/0.5 ML Syringe IVPUSH PRN (18:30)
[2022-09-26] MEDS: Citalopram 20 MG Tab PO SCH (20:30)
[2022-09-27] MEDS: Dextrose 5%-Lactated Ringers 1,000 ML IV SCH ×3 (00:16→21:25)
[2022-09-27] MEDS: Metoclopramide 10 MG/2 ML SDV IVPUSH PRN ×3 (00:16→19:37)
[2022-09-27] MEDS: LORazepam 2 MG/ML SDV IV PRN ×3 (03:35→21:21)
[2022-09-27 05:04] LABS: BASOPHILS PERCENT AUTO 0.5 % (0.1-1.3); EOSINOPHILS ABSOLUTE AUTO 0.32 K/uL (0.00-0.40); EOSINOPHILS PERCENT AUTO 7.5 % (0.0-5.4); HEMATOCRIT 31.9 % (34.3-46.0); HEMOGLOBIN 9.9 g/dL (11.2-15.5); IMMATURE GRAN PERCENT AUTO 0.5 % (0.0-0.7); LYMPHOCYTES ABSOLUTE AUTO 1.25 K/uL (0.8-3.3); LYMPHOCYTES PERCENT AUTO 29.5 % (11.4-47.7); MEAN CORPUSCULAR HEMOGLOBIN 31.4 pg (31.6-35.5); MEAN CORPUSCULAR VOLUME 101.3 fL (81.4-99.0); MONOCYTES ABSOLUTE AUTO 0.38 K/uL (0.20-0.90); NEUTROPHILS ABSOLUTE AUTO 2.25 K/uL (1.0-7.6); PLATELET COUNT,PLT 283 K/uL (130-375); RED BLOOD CELL COUNT 3.15 M/uL (3.77-5.24); WHITE BLOOD CELL COUNT,WBC 4.2 K/uL (3.2-11.0)
[2022-09-27 05:25] LABS: A/G RATIO 0.8 (1.2-2.2); ALANINE AMINOTRANSFERASE,ALT 675 U/L (12-78); ALBUMIN 2.5 g/dL (3.4-5.0); ALKALINE PHOSPHATASE 341 U/L (46-116); ANION GAP 4.3 mmol/L (5.0-14.0); BILIRUBIN TOTAL 0.5 mg/dL (0.2-1.0); BLOOD UREA NITROGEN,BUN 12 mg/dL (7-18); CALCIUM 7.9 mg/dL (8.5-10.1); CARBON DIOXIDE,CO2 28 mmol/L (21-32); CHLORIDE,CL 108 mmol/L (100-108); CREATININE 0.6 mg/dL (0.6-1.0); EST CRCL DRUG DOSING (CG) 94.71 mL/min; ESTIMATED GFR 108 mL/min (>60); GLUCOSE RANDOM 144 mg/dL (74-106); MAGNESIUM 1.7 mg/dL (1.8-2.4); PHOSPHORUS 4.8 mg/dL (2.5-4.9); POTASSIUM,K 3.9 mmol/L (3.6-5.2); PROTEIN TOTAL,TP 5.5 g/dL (6.4-8.2); SODIUM,NA 140 mmol/L (140-148)
[2022-09-27 05:27] LABS: ASPARTATE AMNIOTRANSFERASE,AST 1221 U/L (15-37); BASOPHILS ABSOLUTE AUTO 0.02 K/uL (0.00-0.10); IMMATURE GRAN ABSOLUTE AUTO 0.02 K/uL (0.00-0.23)
[2022-09-27] MEDS ORDERED: Lactated Ringers 1,000 ML IV ONE (07:30)
[2022-09-27] MEDS ORDERED: fentaNYL 100 MCG/2 ML SDV ONE (08:15)
[2022-09-27] MEDS ORDERED: Midazolam 1 MG/ML 2 ML SDV ONE (08:15)
[2022-09-27] MEDS ORDERED: Propofol 200 MG/20 ML SDV ONE (08:15)
[2022-09-27] MEDS ORDERED: MVI, Adult with Vitamin K 10 ML, Zinc/Copper/Manganese/Selenium 1 ML, Thiamine 200 MG i... IV ONE ×4 (08:30)
[2022-09-27] MEDS ORDERED: Cyanocobalamin (Vitamin B12) 1,000 MCG/ML SDV IM ONE (08:30)
[2022-09-27] MEDS ORDERED: Ondansetron 4 MG/2 ML SDV ONE (08:32)
[2022-09-27] MEDS ORDERED: Dexamethasone 4 MG/ML SDV ONE (08:37)
[2022-09-27] MEDS ORDERED: Scopolamine 1.5 MG Transdermal Patch ONE (08:38)
[2022-09-27] MEDS ORDERED: Glycopyrrolate 0.2 MG/ML 2 ML SDV IV ONE (08:45)
[2022-09-27] MEDS: Magnesium Sulfate/Water 2 GM in Premix Bag 1 BAG IV SCH ×3 (09:27→20:10)
[2022-09-27] MEDS: VERIFY SCOP PATCH TOP SCH (09:28)
[2022-09-27] MEDS ORDERED: Iopamidol 612 MG/ML 100 ML Bottle IV PRN (10:03)
[2022-09-27] MEDS ORDERED: Sodium Chloride 0.9% 50 ML IV SCH (10:15)
[2022-09-27] MEDS: Acetaminophen 325 MG Tab PO PRN (11:07)
[2022-09-27] MEDS: HYDROmorphone/Normal Saline 6 MG/30 ML PCA Vial IV PRN ×2 (11:11→17:10)
[2022-09-27] MEDS: Pantoprazole 40 MG Vial IV SCH (16:30)
[2022-09-27] MEDS: Citalopram 20 MG Tab PO SCH (20:10)
[2022-09-27] MEDS: Ondansetron 4 MG/2 ML SDV IVPUSH PRN (23:56)
[2022-09-28] MEDS: HYDROmorphone/Normal Saline 6 MG/30 ML PCA Vial IV PRN ×5 (00:11→20:49)
[2022-09-28] MEDS: Magnesium Sulfate/Water 2 GM in Premix Bag 1 BAG IV SCH ×4 (02:33→23:21)
[2022-09-28] MEDS: Metoclopramide 10 MG/2 ML SDV IVPUSH PRN (03:18)
[2022-09-28 04:49] LABS: BASOPHILS PERCENT AUTO 0.3 % (0.1-1.3); EOSINOPHILS ABSOLUTE AUTO 0.11 K/uL (0.00-0.40); EOSINOPHILS PERCENT AUTO 1.9 % (0.0-5.4); HEMOGLOBIN 8.8 g/dL (11.2-15.5); IMMATURE GRAN PERCENT AUTO 0.3 % (0.0-0.7); LYMPHOCYTES ABSOLUTE AUTO 1.74 K/uL (0.8-3.3); LYMPHOCYTES PERCENT AUTO 29.5 % (11.4-47.7); MEAN CORPUSCULAR HEMOGLOBIN 30.7 pg (31.6-35.5); MEAN CORPUSCULAR HGB CONC 30.3 g/dL (31.6-35.5); MONOCYTES ABSOLUTE AUTO 0.39 K/uL (0.20-0.90); MONOCYTES PERCENT AUTO 6.6 % (3.3-12.6); NEUTROPHILS ABSOLUTE AUTO 3.61 K/uL (1.0-7.6); NEUTROPHILS PERCENT AUTO 61.4 % (40.0-78.1); PLATELET COUNT,PLT 270 K/uL (130-375); RED BLOOD CELL COUNT 2.87 M/uL (3.77-5.24); WHITE BLOOD CELL COUNT,WBC 5.9 K/uL (3.2-11.0)
[2022-09-28 04:57] LABS: BASOPHILS ABSOLUTE AUTO 0.02 K/uL (0.00-0.10); IMMATURE GRAN ABSOLUTE AUTO 0.02 K/uL (0.00-0.23)
[2022-09-28 05:11] LABS: A/G RATIO 0.9 (1.2-2.2); ALANINE AMINOTRANSFERASE,ALT 449 U/L (12-78); ALBUMIN 2.5 g/dL (3.4-5.0); ALKALINE PHOSPHATASE 321 U/L (46-116); ASPARTATE AMNIOTRANSFERASE,AST 283 U/L (15-37); BILIRUBIN TOTAL 0.3 mg/dL (0.2-1.0); BLOOD UREA NITROGEN,BUN 6 mg/dL (7-18); CALCIUM 8.1 mg/dL (8.5-10.1); CARBON DIOXIDE,CO2 30 mmol/L (21-32); CHLORIDE,CL 106 mmol/L (100-108); CREATININE 0.5 mg/dL (0.6-1.0); EST CRCL DRUG DOSING (CG) 113.65 mL/min; ESTIMATED GFR 113 mL/min (>60); GLUCOSE RANDOM 130 mg/dL (74-106); POTASSIUM,K 3.4 mmol/L (3.6-5.2); PRO B-TYPE NATRIUR PEPT,BNPPRO 849 pg/mL (5-125); PROTEIN TOTAL,TP 5.4 g/dL (6.4-8.2); SODIUM,NA 140 mmol/L (140-148)
[2022-09-28] MEDS: Dextrose 5%-Lactated Ringers 1,000 ML IV SCH ×2 (05:22→15:37)
[2022-09-28 05:23] LABS: ANION GAP 7.4 mmol/L (5.0-14.0)
[2022-09-28] MEDS ORDERED: Potassium Phosphates 3 mMole/ML 15 ML SDV IV ONE (07:31)
[2022-09-28] MEDS: LORazepam 2 MG/ML SDV IV PRN ×4 (07:38→20:18)
[2022-09-28] MEDS: Ondansetron 4 MG/2 ML SDV IVPUSH PRN (08:47)
[2022-09-28] MEDS ORDERED: Sertraline 50 MG Tab PO SCH (09:00)
[2022-09-28] MEDS: CITALOPRAM PO SCH ×4 (09:57→20:51)
[2022-09-28] MEDS: VERIFY SCOP PATCH TOP SCH (09:57)
[2022-09-28] MEDS ORDERED: MVI, Adult with Vitamin K 10 ML, Zinc/Copper/Manganese/Selenium 1 ML, Thiamine 100 MG i... IV SCH ×4 (11:00)
[2022-09-28] MEDS: Potassium Phos in 0.9 % NaCl 15 MMOL in Premix Bag 1 BAG IV SCH ×6 (11:01→19:47)
[2022-09-28 11:20] LABS: APPEARANCE,URINE SLIGHTLY CLOUDY (CLEAR); BILIRUBIN,URINE NEGATIVE (NEGATIVE); COLOR,URINE YELLOW (YELLOW); GLUCOSE,URINE NEGATIVE (NEGATIVE); KETONES,URINE NEGATIVE (NEGATIVE); LEUKOCYTE ESTERASE,URINE MODERATE (NEGATIVE); NITRITE,URINE NEGATIVE (NEGATIVE); OCCULT BLOOD,URINE TRACE-INTACT (NEGATIVE); PROTEIN,URINE NEGATIVE (NEGATIVE); UROBILINOGEN,URINE 0.2 EU/dL (0.2-1.0)
[2022-09-28 11:26] LABS: AMORPHOUS SEDIMENT,URINE MODERATE; BACTERIA,URINE MODERATE; EPITHELIAL CELLS,URINE RARE; MUCUS,URINE RARE; WBC,URINE 20-30 (0-5)
[2022-09-28] MEDS ORDERED: Ciprofloxacin in D5W 400 MG in Premix Bag 1 BAG IV SCH ×2 (12:00)
[2022-09-28] MEDS: Meropenem 500 MG in Sodium Chloride 0.9% 50 ML IV SCH ×2 (15:38→23:21)
[2022-09-28] MEDS: Pantoprazole 40 MG Vial IV SCH (16:30)
[2022-09-29] MEDS: Dextrose 5%-Lactated Ringers 1,000 ML IV SCH ×3 (01:16→11:34)
[2022-09-29] MEDS: Ondansetron 4 MG/2 ML SDV IVPUSH PRN ×2 (01:57→16:06)
[2022-09-29] MEDS: Acetaminophen 325 MG Tab PO PRN ×2 (02:31→12:01)
[2022-09-29] MEDS: hydrOXYzine HCl 50 MG/ML SDV IM PRN (02:32)
[2022-09-29] MEDS: Magnesium Sulfate/Water 2 GM in Premix Bag 1 BAG IV SCH ×4 (02:32→22:27)
[2022-09-29 04:18] LABS: HEMATOCRIT 26.9 % (34.3-46.0); HEMOGLOBIN 8.2 g/dL (11.2-15.5); MEAN CORPUSCULAR HEMOGLOBIN 31.1 pg (31.6-35.5); MEAN CORPUSCULAR HGB CONC 30.5 g/dL (31.6-35.5); MEAN CORPUSCULAR VOLUME 101.9 fL (81.4-99.0); RED BLOOD CELL COUNT 2.64 M/uL (3.77-5.24); WHITE BLOOD CELL COUNT,WBC 5.9 K/uL (3.2-11.0)
[2022-09-29 04:48] LABS: A/G RATIO 0.9 (1.2-2.2); ALANINE AMINOTRANSFERASE,ALT 308 U/L (12-78); ALBUMIN 2.3 g/dL (3.4-5.0); ALKALINE PHOSPHATASE 273 U/L (46-116); ASPARTATE AMNIOTRANSFERASE,AST 161 U/L (15-37); BILIRUBIN TOTAL 0.3 mg/dL (0.2-1.0); BLOOD UREA NITROGEN,BUN 6 mg/dL (7-18); CALCIUM 7.5 mg/dL (8.5-10.1); CARBON DIOXIDE,CO2 30 mmol/L (21-32); CHLORIDE,CL 108 mmol/L (100-108); CREATININE 0.4 mg/dL (0.6-1.0); EST CRCL DRUG DOSING (CG) 142.07 mL/min; ESTIMATED GFR 119 mL/min (>60); GLUCOSE RANDOM 125 mg/dL (74-106); PHOSPHORUS 5.4 mg/dL (2.5-4.9); POTASSIUM,K 3.3 mmol/L (3.6-5.2); PRO B-TYPE NATRIUR PEPT,BNPPRO 1416 pg/mL (5-125); SODIUM,NA 143 mmol/L (140-148)
[2022-09-29 05:20] LABS: ANION GAP 8.3 mmol/L (5.0-14.0)
[2022-09-29] MEDS: Meropenem 500 MG in Sodium Chloride 0.9% 50 ML IV SCH ×3 (05:36→21:20)
[2022-09-29] MEDS ORDERED: Bupivacaine 0.5% 50 ML MDV ONE (07:50)
[2022-09-29] MEDS ORDERED: Lidocaine 1% with EPINEPHrine 1:100,000 50 ML MDV ONE (07:50)
[2022-09-29] MEDS: CITALOPRAM PO SCH ×4 (08:06→21:23)
[2022-09-29] MEDS: VERIFY SCOP PATCH TOP SCH (08:17)
[2022-09-29] MEDS: HYDROmorphone/Normal Saline 6 MG/30 ML PCA Vial IV PRN ×3 (08:38→19:34)
[2022-09-29] MEDS ORDERED: fentaNYL 50 MCG/ML SDV ONE (09:18)
[2022-09-29] MEDS ORDERED: Propofol 200 MG/20 ML SDV ONE ×2 (09:18→09:57)
[2022-09-29] MEDS ORDERED: Midazolam 1 MG/ML 2 ML SDV ONE (09:18)
[2022-09-29] MEDS: ceFAZolin 2 GM in Premix Bag 1 BAG IV ONE ×2 (09:35→11:21)
[2022-09-29] MEDS: 1: AA 5%/Calcium/D15W/Lytes 1,000 ML with MVI, Adult with Vitamin K 10 ML, Zinc/Copper/M IV SCH ×3 (14:42)
[2022-09-29] MEDS: Pantoprazole 40 MG Vial IV SCH (16:05)
[2022-09-29] MEDS: LORazepam 2 MG/ML SDV IV PRN ×2 (19:32→21:31)
[2022-09-30] MEDS: 1: AA 5%/Calcium/D15W/Lytes 1,000 ML with MVI, Adult with Vitamin K 10 ML, Zinc/Copper/M IV SCH ×9 (01:02→22:06)
[2022-09-30] MEDS: LORazepam 2 MG/ML SDV IV PRN ×3 (02:28→19:16)
[2022-09-30] MEDS: Ondansetron 4 MG/2 ML SDV IVPUSH PRN (02:29)
[2022-09-30] MEDS: Magnesium Sulfate/Water 2 GM in Premix Bag 1 BAG IV SCH (02:33)
[2022-09-30] MEDS: HYDROmorphone/Normal Saline 6 MG/30 ML PCA Vial IV PRN ×3 (04:39→21:15)
[2022-09-30 05:11] LABS: BASOPHILS ABSOLUTE AUTO 0.03 K/uL (0.00-0.10); BASOPHILS PERCENT AUTO 0.4 % (0.1-1.3); EOSINOPHILS ABSOLUTE AUTO 0.32 K/uL (0.00-0.40); EOSINOPHILS PERCENT AUTO 4.3 % (0.0-5.4); HEMATOCRIT 31.2 % (34.3-46.0); HEMOGLOBIN 9.8 g/dL (11.2-15.5); IMMATURE GRAN PERCENT AUTO 0.1 % (0.0-0.7); LYMPHOCYTES ABSOLUTE AUTO 1.68 K/uL (0.8-3.3); LYMPHOCYTES PERCENT AUTO 22.6 % (11.4-47.7); MEAN CORPUSCULAR HEMOGLOBIN 31.3 pg (31.6-35.5); MEAN CORPUSCULAR HGB CONC 31.4 g/dL (31.6-35.5); MEAN CORPUSCULAR VOLUME 99.7 fL (81.4-99.0); MONOCYTES PERCENT AUTO 6.7 % (3.3-12.6); NEUTROPHILS ABSOLUTE AUTO 4.88 K/uL (1.0-7.6); NEUTROPHILS PERCENT AUTO 65.9 % (40.0-78.1); PLATELET COUNT,PLT 249 K/uL (130-375); RED BLOOD CELL COUNT 3.13 M/uL (3.77-5.24); WHITE BLOOD CELL COUNT,WBC 7.4 K/uL (3.2-11.0)
[2022-09-30 05:21] LABS: IMMATURE GRAN ABSOLUTE AUTO 0.01 K/uL (0.00-0.23)
[2022-09-30 05:39] LABS: A/G RATIO 0.8 (1.2-2.2); ALANINE AMINOTRANSFERASE,ALT 230 U/L (12-78); ALBUMIN 2.4 g/dL (3.4-5.0); ALKALINE PHOSPHATASE 249 U/L (46-116); ANION GAP 7.7 mmol/L (5.0-14.0); ASPARTATE AMNIOTRANSFERASE,AST 66 U/L (15-37); BILIRUBIN TOTAL 0.4 mg/dL (0.2-1.0); BLOOD UREA NITROGEN,BUN 10 mg/dL (7-18); CALCIUM 7.7 mg/dL (8.5-10.1); CARBON DIOXIDE,CO2 33 mmol/L (21-32); CHLORIDE,CL 101 mmol/L (100-108); CREATININE 0.4 mg/dL (0.6-1.0); ESTIMATED GFR 119 mL/min (>60); GLUCOSE RANDOM 149 mg/dL (74-106); MAGNESIUM 2.7 mg/dL (1.8-2.4); PHOSPHORUS 3.6 mg/dL (2.5-4.9); POTASSIUM,K 3.7 mmol/L (3.6-5.2); PROTEIN TOTAL,TP 5.4 g/dL (6.4-8.2); SODIUM,NA 138 mmol/L (140-148)
[2022-09-30] MEDS: Meropenem 500 MG in Sodium Chloride 0.9% 50 ML IV SCH ×3 (06:03→21:17)
[2022-09-30] MEDS ORDERED: Ketamine 500 MG/5 ML MDV IV SCH ×3 (07:30→12:00)
[2022-09-30] MEDS: Scopolamine 1.5 MG Transdermal Patch TOP SCH (09:07)
[2022-09-30] MEDS: CITALOPRAM PO SCH ×4 (09:07→20:31)
[2022-09-30] MEDS: VERIFY SCOP PATCH TOP SCH (09:08)
[2022-09-30] MEDS ORDERED: fentaNYL 250 MCG/5 ML SDV ONE (09:30)
[2022-09-30] MEDS ORDERED: Neostigmine Methylsulfate 1 MG/ML 5 ML Syringe ONE (09:31)
[2022-09-30] MEDS ORDERED: Rocuronium 50 MG/5 ML Vial ONE ×2 (09:31→13:44)
[2022-09-30] MEDS ORDERED: Ondansetron 4 MG/2 ML SDV ONE (09:31)
[2022-09-30] MEDS ORDERED: Glycopyrrolate 0.2 MG/ML 5 ML MDV ONE (09:31)
[2022-09-30] MEDS ORDERED: Propofol 200 MG/20 ML SDV ONE (09:31)
[2022-09-30] MEDS ORDERED: Succinylcholine 200 MG/10 ML MDV ONE (09:31)
[2022-09-30] MEDS ORDERED: Dexamethasone 4 MG/ML SDV ONE (09:31)
[2022-09-30] MEDS ORDERED: Meropenem 500 MG SDV ONE (11:30)
[2022-09-30] MEDS ORDERED: Lidocaine 1% with EPINEPHrine 1:100,000 50 ML MDV ONE (11:30)
[2022-09-30] MEDS ORDERED: cefOXitin 2 GM in Sodium Chloride 0.9% 50 ML IV ONE (11:30)
[2022-09-30] MEDS ORDERED: Bupivacaine 0.5% 50 ML MDV ONE (11:30)
[2022-09-30] MEDS ORDERED: Ketamine 16 MG in Sodium Chloride 0.9% 19.84 ML IV SCH (12:00)
[2022-09-30] MEDS ORDERED: Ropivacaine 30 ML, dexAMETHasone 8 MG, EPINEPHrine 0.4 MG, Sodium Chloride 0.9% 47.6 ML NERVRT SCH ×4 (12:00)
[2022-09-30] MEDS ORDERED: Lactated Ringers 1,000 ML ONE (12:37)
[2022-09-30] MEDS ORDERED: fentaNYL 100 MCG/2 ML SDV ONE (14:12)
[2022-09-30] MEDS ORDERED: Metoclopramide 10 MG/2 ML SDV IVPUSH PRN (16:00)
[2022-09-30] MEDS ORDERED: MVI, Adult with Vitamin K 10 ML, Thiamine 200 MG, Zinc/Copper/Manganese/Selenium 1 ML i... IV SCH ×4 (16:00)
[2022-09-30] MEDS ORDERED: Acetaminophen 500 MG Tab PO PRN (16:00)
[2022-09-30] MEDS ORDERED: Labetalol 20 MG/4 ML Syringe IVPUSH PRN (16:00)
[2022-09-30] MEDS ORDERED: diphenhydrAMINE 50 MG/ML SDV IVPUSH PRN (16:00)
[2022-09-30] MEDS: Acetaminophen 500 MG Tab PO SCH (16:14)
[2022-09-30] MEDS: Pantoprazole 40 MG Vial IV SCH (16:14)
[2022-09-30] MEDS: Dextrose 5%-Lactated Ringers 1,000 ML IV SCH (17:57)
[2022-09-30] MEDS: Cyclobenzaprine 10 MG Tab PO PRN (19:16)
[2022-09-30] MEDS: Docusate Sodium 100 MG Cap PO SCH (20:31)
[2022-10-01] MEDS: Acetaminophen 500 MG Tab PO SCH ×4 (00:26→23:49)
[2022-10-01] MEDS: Ondansetron 4 MG/2 ML SDV IVPUSH PRN ×2 (00:35→19:21)
[2022-10-01] MEDS: Cyclobenzaprine 10 MG Tab PO PRN (04:36)
[2022-10-01 04:40] LABS: BASOPHILS PERCENT AUTO 0.1 % (0.1-1.3); HEMOGLOBIN 10.5 g/dL (11.2-15.5); IMMATURE GRAN ABSOLUTE AUTO 0.08 K/uL (0.00-0.23); IMMATURE GRAN PERCENT AUTO 0.5 % (0.0-0.7); LYMPHOCYTES PERCENT AUTO 6.3 % (11.4-47.7); MEAN CORPUSCULAR HEMOGLOBIN 30.9 pg (31.6-35.5); MEAN CORPUSCULAR HGB CONC 31.8 g/dL (31.6-35.5); MEAN CORPUSCULAR VOLUME 97.1 fL (81.4-99.0); MONOCYTES PERCENT AUTO 3.8 % (3.3-12.6); NEUTROPHILS ABSOLUTE AUTO 14.23 K/uL (1.0-7.6); NEUTROPHILS PERCENT AUTO 89.3 % (40.0-78.1); PLATELET COUNT,PLT 313 K/uL (130-375); WHITE BLOOD CELL COUNT,WBC 15.9 K/uL (3.2-11.0)
[2022-10-01] MEDS: LORazepam 2 MG/ML SDV IV PRN ×6 (04:41→20:29)
[2022-10-01 04:47] LABS: BASOPHILS ABSOLUTE AUTO 0.02 K/uL (0.00-0.10)
[2022-10-01 05:05] LABS: A/G RATIO 0.7 (1.2-2.2); ALANINE AMINOTRANSFERASE,ALT 187 U/L (12-78); ALBUMIN 2.3 g/dL (3.4-5.0); ALKALINE PHOSPHATASE 235 U/L (46-116); ASPARTATE AMNIOTRANSFERASE,AST 62 U/L (15-37); BILIRUBIN TOTAL 0.3 mg/dL (0.2-1.0); BLOOD UREA NITROGEN,BUN 15 mg/dL (7-18); CALCIUM 8.3 mg/dL (8.5-10.1); CARBON DIOXIDE,CO2 31 mmol/L (21-32); CHLORIDE,CL 101 mmol/L (100-108); CREATININE 0.5 mg/dL (0.6-1.0); EST CRCL DRUG DOSING (CG) 114.48 mL/min; ESTIMATED GFR 113 mL/min (>60); GLUCOSE RANDOM 256 mg/dL (74-106); MAGNESIUM 1.5 mg/dL (1.8-2.4); PHOSPHORUS 2.3 mg/dL (2.5-4.9); POTASSIUM,K 3.6 mmol/L (3.6-5.2); PRO B-TYPE NATRIUR PEPT,BNPPRO 308 pg/mL (5-125); PROTEIN TOTAL,TP 5.7 g/dL (6.4-8.2); SODIUM,NA 136 mmol/L (140-148)
[2022-10-01] MEDS ORDERED: Iopamidol 612 MG/ML 30 ML SDV PO ONE (05:09)
[2022-10-01 05:18] LABS: ANION GAP 7.6 mmol/L (5.0-14.0)
[2022-10-01] MEDS: Meropenem 500 MG in Sodium Chloride 0.9% 50 ML IV SCH ×3 (05:29→21:44)
[2022-10-01] MEDS: Dextrose 5%-Lactated Ringers 1,000 ML IV SCH (08:29)
[2022-10-01] MEDS: 1: AA 5%/Calcium/D15W/Lytes 1,000 ML with MVI, Adult with Vitamin K 10 ML, Zinc/Copper/M IV SCH ×6 (08:29→18:08)
[2022-10-01] MEDS: Celecoxib 200 MG Cap PO SCH ×2 (08:34→20:29)
[2022-10-01] MEDS: CITALOPRAM PO SCH ×4 (08:34→20:29)
[2022-10-01] MEDS: Docusate Sodium 100 MG Cap PO SCH ×2 (08:34→20:29)
[2022-10-01] MEDS: VERIFY SCOP PATCH TOP SCH (08:35)
[2022-10-01] MEDS: HYDROmorphone/Normal Saline 6 MG/30 ML PCA Vial IV PRN ×2 (09:07→16:52)
[2022-10-01] MEDS: Potassium Phosphates 15 MMOLE in Sodium Chloride 0.9% 100 ML IV SCH ×4 (10:28→17:54)
[2022-10-01] MEDS: Magnesium Sulfate/Water 2 GM in Premix Bag 1 BAG IV SCH ×3 (10:28→21:46)
[2022-10-01] MEDS: Pantoprazole 40 MG Vial IV SCH (15:53)
[2022-10-02] MEDS: LORazepam 2 MG/ML SDV IV PRN ×3 (00:28→06:56)
[2022-10-02] MEDS: HYDROmorphone/Normal Saline 6 MG/30 ML PCA Vial IV PRN ×3 (04:37→19:59)
[2022-10-02] MEDS: 1: AA 5%/Calcium/D15W/Lytes 1,000 ML with MVI, Adult with Vitamin K 10 ML, Zinc/Copper/M IV SCH ×6 (04:44→14:52)
[2022-10-02] MEDS: Magnesium Sulfate/Water 2 GM in Premix Bag 1 BAG IV SCH ×4 (04:45→21:30)
[2022-10-02 04:55] LABS: BASOPHILS ABSOLUTE AUTO 0.05 K/uL (0.00-0.10); BASOPHILS PERCENT AUTO 0.3 % (0.1-1.3); EOSINOPHILS ABSOLUTE AUTO 0.24 K/uL (0.00-0.40); EOSINOPHILS PERCENT AUTO 1.4 % (0.0-5.4); HEMATOCRIT 28.5 % (34.3-46.0); HEMOGLOBIN 8.8 g/dL (11.2-15.5); IMMATURE GRAN ABSOLUTE AUTO 0.08 K/uL (0.00-0.23); IMMATURE GRAN PERCENT AUTO 0.5 % (0.0-0.7); LYMPHOCYTES ABSOLUTE AUTO 2.93 K/uL (0.8-3.3); MEAN CORPUSCULAR HGB CONC 30.9 g/dL (31.6-35.5); MEAN CORPUSCULAR VOLUME 100.4 fL (81.4-99.0); MONOCYTES ABSOLUTE AUTO 1.26 K/uL (0.20-0.90); MONOCYTES PERCENT AUTO 7.3 % (3.3-12.6); NEUTROPHILS ABSOLUTE AUTO 12.68 K/uL (1.0-7.6); NEUTROPHILS PERCENT AUTO 73.5 % (40.0-78.1); PLATELET COUNT,PLT 300 K/uL (130-375); RED BLOOD CELL COUNT 2.84 M/uL (3.77-5.24); WHITE BLOOD CELL COUNT,WBC 17.2 K/uL (3.2-11.0)
[2022-10-02 05:25] LABS: A/G RATIO 0.6 (1.2-2.2); ALANINE AMINOTRANSFERASE,ALT 186 U/L (12-78); ALBUMIN 1.9 g/dL (3.4-5.0); ALKALINE PHOSPHATASE 186 U/L (46-116); ANION GAP 3.9 mmol/L (5.0-14.0); ASPARTATE AMNIOTRANSFERASE,AST 73 U/L (15-37); BILIRUBIN TOTAL 0.2 mg/dL (0.2-1.0); BLOOD UREA NITROGEN,BUN 19 mg/dL (7-18); CALCIUM 7.7 mg/dL (8.5-10.1); CARBON DIOXIDE,CO2 31 mmol/L (21-32); CHLORIDE,CL 105 mmol/L (100-108); CREATININE 0.4 mg/dL (0.6-1.0); ESTIMATED GFR 119 mL/min (>60); GLUCOSE RANDOM 158 mg/dL (74-106); PHOSPHORUS 3.6 mg/dL (2.5-4.9); POTASSIUM,K 3.9 mmol/L (3.6-5.2); PRO B-TYPE NATRIUR PEPT,BNPPRO 91 pg/mL (5-125); PROTEIN TOTAL,TP 4.9 g/dL (6.4-8.2); SODIUM,NA 140 mmol/L (140-148)
[2022-10-02] MEDS ORDERED: Meropenem 500 MG SDV ONE (06:50)
[2022-10-02] MEDS ORDERED: Lidocaine 1% with EPINEPHrine 1:100,000 50 ML MDV ONE (06:50)
[2022-10-02] MEDS ORDERED: Bupivacaine 0.5% 50 ML MDV ONE (06:50)
[2022-10-02] MEDS: Meropenem 500 MG in Sodium Chloride 0.9% 50 ML IV SCH ×2 (06:52→14:16)
[2022-10-02] MEDS ORDERED: Midazolam 1 MG/ML 2 ML SDV ONE (07:13)
[2022-10-02] MEDS ORDERED: Propofol 200 MG/20 ML SDV ONE ×3 (07:13→08:05)
[2022-10-02] MEDS ORDERED: fentaNYL 100 MCG/2 ML SDV ONE (07:21)
[2022-10-02] MEDS ORDERED: Ropivacaine 30 ML, dexAMETHasone 8 MG, EPINEPHrine 0.4 MG, Sodium Chloride 0.9% 47.6 ML NERVRT SCH ×4 (07:30)
[2022-10-02] MEDS ORDERED: Cyanocobalamin (Vitamin B12) 1,000 MCG/ML SDV IM ONE (09:00)
[2022-10-02] MEDS: CITALOPRAM PO SCH ×4 (09:05→21:29)
[2022-10-02] MEDS: Celecoxib 200 MG Cap PO SCH ×2 (09:06→21:29)
[2022-10-02] MEDS: Acetaminophen 500 MG Tab PO SCH ×2 (09:06→15:40)
[2022-10-02] MEDS: Docusate Sodium 100 MG Cap PO SCH ×2 (09:06→21:30)
[2022-10-02] MEDS: VERIFY SCOP PATCH TOP SCH (09:07)
[2022-10-02] MEDS: LORazepam 1 MG Tab PO PRN ×2 (11:35→17:46)
[2022-10-02] MEDS: Dextrose 5%-Lactated Ringers 1,000 ML IV SCH (13:14)
[2022-10-02] MEDS: Ondansetron 4 MG/2 ML SDV IVPUSH PRN ×2 (14:27→20:53)
[2022-10-02] MEDS: Pantoprazole 40 MG Tab.CR PO SCH (15:40)
[2022-10-03] MEDS: Acetaminophen 500 MG Tab PO SCH ×3 (00:18→21:04)
[2022-10-03] MEDS: 1: AA 5%/Calcium/D15W/Lytes 1,000 ML with MVI, Adult with Vitamin K 10 ML, Zinc/Copper/M IV SCH ×9 (01:11→21:05)
[2022-10-03] MEDS: LORazepam 1 MG Tab PO PRN ×3 (01:11→15:20)
[2022-10-03] MEDS: Magnesium Sulfate/Water 2 GM in Premix Bag 1 BAG IV SCH ×4 (03:11→21:05)
[2022-10-03 05:55] LABS: AMYLASE,BODY FLUID 19 U/L
[2022-10-03 05:55] LABS: AMYLASE,BODY FLUID 14 U/L
[2022-10-03 05:57] LABS: AMYLASE BODY FLUID TYPE JP DRAINAGE 2
[2022-10-03 05:57] LABS: AMYLASE BODY FLUID TYPE JP DRAINAGE 1
[2022-10-03] MEDS: HYDROmorphone/Normal Saline 6 MG/30 ML PCA Vial IV PRN ×3 (07:11→20:19)
[2022-10-03] MEDS ORDERED: Central Total Parenteral Nutrition Bag SCH (07:15)
[2022-10-03] MEDS ORDERED: Propofol 200 MG/20 ML SDV ONE (09:52)
[2022-10-03] MEDS ORDERED: fentaNYL 100 MCG/2 ML SDV ONE (09:52)
[2022-10-03] MEDS ORDERED: Calcium Carbonate 500 MG Tab.Chew PO ONE (10:13)
[2022-10-03] MEDS: Pantoprazole 40 MG Tab.CR PO SCH (12:42)
[2022-10-03] MEDS: CITALOPRAM PO SCH ×4 (12:43→21:04)
[2022-10-03] MEDS: Celecoxib 200 MG Cap PO SCH ×2 (12:44→21:04)
[2022-10-03] MEDS: Docusate Sodium 100 MG Cap PO SCH ×2 (12:44→21:04)
[2022-10-03] MEDS: VERIFY SCOP PATCH TOP SCH (12:45)
[2022-10-03] MEDS: Scopolamine 1.5 MG Transdermal Patch TOP SCH (12:45)
[2022-10-04] MEDS: Magnesium Sulfate/Water 2 GM in Premix Bag 1 BAG IV SCH (04:09)
[2022-10-04] MEDS: Acetaminophen 500 MG Tab PO SCH (04:10)
[2022-10-04] MEDS: Dextrose 5%-Lactated Ringers 1,000 ML IV SCH (04:10)
[2022-10-04 04:19] LABS: BASOPHILS ABSOLUTE AUTO 0.04 K/uL (0.00-0.10); BASOPHILS PERCENT AUTO 0.4 % (0.1-1.3); EOSINOPHILS ABSOLUTE AUTO 0.73 K/uL (0.00-0.40); EOSINOPHILS PERCENT AUTO 7.8 % (0.0-5.4); HEMATOCRIT 28.1 % (34.3-46.0); IMMATURE GRAN ABSOLUTE AUTO 0.03 K/uL (0.00-0.23); IMMATURE GRAN PERCENT AUTO 0.3 % (0.0-0.7); LYMPHOCYTES ABSOLUTE AUTO 2.78 K/uL (0.8-3.3); LYMPHOCYTES PERCENT AUTO 29.8 % (11.4-47.7); MEAN CORPUSCULAR VOLUME 96.9 fL (81.4-99.0); MONOCYTES ABSOLUTE AUTO 0.97 K/uL (0.20-0.90); MONOCYTES PERCENT AUTO 10.4 % (3.3-12.6); NEUTROPHILS ABSOLUTE AUTO 4.79 K/uL (1.0-7.6); NEUTROPHILS PERCENT AUTO 51.3 % (40.0-78.1); PLATELET COUNT,PLT 306 K/uL (130-375); WHITE BLOOD CELL COUNT,WBC 9.3 K/uL (3.2-11.0)
[2022-10-04 04:48] LABS: A/G RATIO 0.6 (1.2-2.2); ALANINE AMINOTRANSFERASE,ALT 167 U/L (12-78); ALKALINE PHOSPHATASE 160 U/L (46-116); ANION GAP 5.5 mmol/L (5.0-14.0); ASPARTATE AMNIOTRANSFERASE,AST 92 U/L (15-37); BILIRUBIN TOTAL 0.3 mg/dL (0.2-1.0); BLOOD UREA NITROGEN,BUN 20 mg/dL (7-18); CALCIUM 8.2 mg/dL (8.5-10.1); CARBON DIOXIDE,CO2 32 mmol/L (21-32); CHLORIDE,CL 105 mmol/L (100-108); CREATININE 0.4 mg/dL (0.6-1.0); ESTIMATED GFR 119 mL/min (>60); GLUCOSE RANDOM 123 mg/dL (74-106); MAGNESIUM 2.1 mg/dL (1.8-2.4); PHOSPHORUS 4.7 mg/dL (2.5-4.9); PRO B-TYPE NATRIUR PEPT,BNPPRO 250 pg/mL (5-125); PROTEIN TOTAL,TP 5.2 g/dL (6.4-8.2); SODIUM,NA 142 mmol/L (140-148)
[2022-10-04] MEDS ORDERED: HYDROmorphone 2 MG Tab PO PRN (07:21)
[2022-10-04] MEDS ORDERED: Central Total Parenteral Nutrition Bag SCH (07:30)
[2022-10-04] MEDS: 1: AA 5%/Calcium/D15W/Lytes 1,000 ML with MVI, Adult with Vitamin K 10 ML, Zinc/Copper/M IV SCH ×9 (07:54→23:38)
[2022-10-04] MEDS: hydrOXYzine HCl 25 MG Tab PO PRN ×4 (07:57→23:38)
[2022-10-04] MEDS: Pantoprazole 40 MG Tab.CR PO SCH (07:57)
[2022-10-04] MEDS: Celecoxib 200 MG Cap PO SCH ×2 (08:02→20:00)
[2022-10-04] MEDS: CITALOPRAM PO SCH ×4 (08:02→20:00)
[2022-10-04] MEDS: Docusate Sodium 100 MG Cap PO SCH ×2 (08:03→20:00)
[2022-10-04] MEDS: VERIFY SCOP PATCH TOP SCH (08:03)
[2022-10-04] MEDS: LORazepam 1 MG Tab PO PRN (10:42)
[2022-10-04] MEDS: Hyoscyamine 0.125 MG Tab.SL SL SCH ×3 (11:37→20:01)
[2022-10-04] MEDS: Acetaminophen 160 MG Tab,Disintegrating PO SCH ×2 (11:38→20:01)
[2022-10-04] MEDS ORDERED: 1: AA 5%/Calcium/D15W/Lytes 1,000 ML with MVI, Adult with Vitamin K 10 ML, Zinc/Copper/M IV SCH ×3 (13:00)
[2022-10-04] MEDS: Cyclobenzaprine 10 MG Tab PO PRN (15:54)
[2022-10-04] MEDS: hydrOXYzine HCl 50 MG/ML SDV IM PRN (17:17)
[2022-10-04] MEDS: HYDROmorphone 2 MG Tab PO PRN ×2 (17:41→21:41)
[2022-10-04] MEDS: Ondansetron 4 MG/2 ML SDV IVPUSH PRN (20:05)
[2022-10-05] MEDS: HYDROmorphone 2 MG Tab PO PRN ×5 (01:48→20:06)
[2022-10-05 04:31] LABS: HEMOGLOBIN 11.2 g/dL (11.2-15.5); MEAN CORPUSCULAR HEMOGLOBIN 30.9 pg (31.6-35.5); MEAN CORPUSCULAR HGB CONC 32.9 g/dL (31.6-35.5); MEAN CORPUSCULAR VOLUME 93.9 fL (81.4-99.0); RED BLOOD CELL COUNT 3.62 M/uL (3.77-5.24); WHITE BLOOD CELL COUNT,WBC 10.2 K/uL (3.2-11.0)
[2022-10-05] MEDS: hydrOXYzine HCl 25 MG Tab PO PRN ×2 (04:53→18:04)
[2022-10-05] MEDS: Acetaminophen 160 MG Tab,Disintegrating PO SCH ×2 (04:53→11:48)
[2022-10-05 05:02] LABS: A/G RATIO 0.6 (1.2-2.2); ALANINE AMINOTRANSFERASE,ALT 240 U/L (12-78); ALBUMIN 2.2 g/dL (3.4-5.0); ALKALINE PHOSPHATASE 182 U/L (46-116); ANION GAP 8.5 mmol/L (5.0-14.0); ASPARTATE AMNIOTRANSFERASE,AST 105 U/L (15-37); BILIRUBIN TOTAL 0.4 mg/dL (0.2-1.0); BLOOD UREA NITROGEN,BUN 19 mg/dL (7-18); CALCIUM 8.7 mg/dL (8.5-10.1); CARBON DIOXIDE,CO2 30 mmol/L (21-32); CHLORIDE,CL 102 mmol/L (100-108); CREATININE 0.4 mg/dL (0.6-1.0); ESTIMATED GFR 119 mL/min (>60); GLUCOSE RANDOM 137 mg/dL (74-106); MAGNESIUM 1.7 mg/dL (1.8-2.4); PHOSPHORUS 4.6 mg/dL (2.5-4.9); POTASSIUM,K 4.1 mmol/L (3.6-5.2); PRO B-TYPE NATRIUR PEPT,BNPPRO 351 pg/mL (5-125); SODIUM,NA 140 mmol/L (140-148)
[2022-10-05] MEDS: Pantoprazole 40 MG Tab.CR PO SCH (07:34)
[2022-10-05] MEDS: Hyoscyamine 0.125 MG Tab.SL SL SCH ×4 (07:35→20:05)
[2022-10-05] MEDS ORDERED: busPIRone 5 MG Tab PO PRN (07:57)
[2022-10-05] MEDS ORDERED: Central Total Parenteral Nutrition Bag SCH (08:00)
[2022-10-05] MEDS: CITALOPRAM PO SCH ×4 (09:04→20:05)
[2022-10-05] MEDS: Magnesium Sulfate/Water 2 GM/50 ML BAG IV SCH ×3 (09:04→21:44)
[2022-10-05] MEDS: Docusate Sodium 100 MG Cap PO SCH ×2 (09:04→20:06)
[2022-10-05] MEDS: Celecoxib 200 MG Cap PO SCH ×2 (09:04→20:05)
[2022-10-05] MEDS: VERIFY SCOP PATCH TOP SCH (09:05)
[2022-10-05] MEDS: Ondansetron 4 MG/2 ML SDV IVPUSH PRN ×2 (09:12→15:02)
[2022-10-05] MEDS ORDERED: 1: AA 5%/Calcium/D15W/Lytes 1,000 ML with MVI, Adult with Vitamin K 10 ML, Zinc/Copper/M IV SCH ×6 (11:00)
[2022-10-05] MEDS: Acetaminophen 500 MG Tab PO SCH ×2 (12:11→20:05)
[2022-10-05] MEDS ORDERED: Fat Emulsion 100 ML IV ONE (16:00)
[2022-10-05] MEDS: hydrOXYzine HCl 50 MG/ML SDV IM PRN (19:19)
[2022-10-06] MEDS: HYDROmorphone 2 MG Tab PO PRN ×5 (02:15→20:34)
[2022-10-06] MEDS: hydrOXYzine HCl 25 MG Tab PO PRN ×4 (03:35→20:34)
[2022-10-06] MEDS: Magnesium Sulfate/Water 2 GM/50 ML BAG IV SCH ×4 (04:08→22:14)
[2022-10-06] MEDS: Acetaminophen 500 MG Tab PO SCH ×3 (04:08→20:18)
[2022-10-06 04:41] LABS: HEMATOCRIT 35.6 % (34.3-46.0); HEMOGLOBIN 11.9 g/dL (11.2-15.5); MEAN CORPUSCULAR HEMOGLOBIN 31.1 pg (31.6-35.5); MEAN CORPUSCULAR HGB CONC 33.4 g/dL (31.6-35.5); RED BLOOD CELL COUNT 3.83 M/uL (3.77-5.24)
[2022-10-06 05:05] LABS: A/G RATIO 0.6 (1.2-2.2); ALANINE AMINOTRANSFERASE,ALT 248 U/L (12-78); ALBUMIN 2.4 g/dL (3.4-5.0); ALKALINE PHOSPHATASE 212 U/L (46-116); ASPARTATE AMNIOTRANSFERASE,AST 123 U/L (15-37); BILIRUBIN TOTAL 0.5 mg/dL (0.2-1.0); BLOOD UREA NITROGEN,BUN 18 mg/dL (7-18); CALCIUM 8.7 mg/dL (8.5-10.1); CARBON DIOXIDE,CO2 27 mmol/L (21-32); CHLORIDE,CL 103 mmol/L (100-108); CREATININE 0.5 mg/dL (0.6-1.0); EST CRCL DRUG DOSING (CG) 114.48 mL/min; ESTIMATED GFR 113 mL/min (>60); GLUCOSE RANDOM 114 mg/dL (74-106); PHOSPHORUS 3.7 mg/dL (2.5-4.9); POTASSIUM,K 3.7 mmol/L (3.6-5.2); PROTEIN TOTAL,TP 6.3 g/dL (6.4-8.2); SODIUM,NA 138 mmol/L (140-148)
[2022-10-06 05:07] LABS: ANION GAP 11.7 mmol/L (5.0-14.0)
[2022-10-06 05:21] LABS: AMYLASE BODY FLUID TYPE JP DRAINAGE #1; AMYLASE BODY FLUID TYPE JP DRAINAGE #2; AMYLASE,BODY FLUID 0 U/L
[2022-10-06] MEDS ORDERED: Central Total Parenteral Nutrition Bag SCH (07:30)
[2022-10-06] MEDS: Celecoxib 200 MG Cap PO SCH ×3 (07:42→20:34)
[2022-10-06] MEDS: CITALOPRAM PO SCH ×6 (07:42→20:34)
[2022-10-06] MEDS: Pantoprazole 40 MG Tab.CR PO SCH (07:42)
[2022-10-06] MEDS: Hyoscyamine 0.125 MG Tab.SL SL SCH ×4 (07:42→20:18)
[2022-10-06] MEDS: busPIRone 10 MG Tab PO SCH ×4 (07:46→20:34)
[2022-10-06] MEDS: Dextrose 5%-Lactated Ringers 1,000 ML IV SCH (07:46)
[2022-10-06] MEDS: Cyclobenzaprine 10 MG Tab PO PRN ×2 (07:54→20:34)
[2022-10-06] MEDS: VERIFY SCOP PATCH TOP SCH (08:34)
[2022-10-06] MEDS: Docusate Sodium 100 MG Cap PO SCH ×2 (08:34→20:35)
[2022-10-06] MEDS: Scopolamine 1.5 MG Transdermal Patch TOP SCH (09:26)
[2022-10-06] MEDS ORDERED: 1: AA 5%/Calcium/D15W/Lytes 1,000 ML with MVI, Adult with Vitamin K 10 ML, Zinc/Copper/M IV SCH ×3 (14:00)
[2022-10-06] MEDS ORDERED: Fat Emulsion 100 ML IV ONE (14:00)
[2022-10-06] MEDS ORDERED: Melatonin 3 MG Tab PO SCH (21:00)
[2022-10-07] MEDS: HYDROmorphone 2 MG Tab PO PRN ×2 (00:35→04:34)
[2022-10-07] MEDS: hydrOXYzine HCl 25 MG Tab PO PRN ×3 (00:35→08:12)
[2022-10-07] MEDS: Magnesium Sulfate/Water 2 GM/50 ML BAG IV SCH (04:28)
[2022-10-07] MEDS: Acetaminophen 500 MG Tab PO SCH (04:28)
[2022-10-07 04:31] LABS: HEMATOCRIT 36.1 % (34.3-46.0); MEAN CORPUSCULAR HGB CONC 33.2 g/dL (31.6-35.5); MEAN CORPUSCULAR VOLUME 93.3 fL (81.4-99.0); RED BLOOD CELL COUNT 3.87 M/uL (3.77-5.24); WHITE BLOOD CELL COUNT,WBC 9.3 K/uL (3.2-11.0)
[2022-10-07] MEDS: Cyclobenzaprine 10 MG Tab PO PRN (04:34)
[2022-10-07 04:58] LABS: A/G RATIO 0.6 (1.2-2.2); ALANINE AMINOTRANSFERASE,ALT 225 U/L (12-78); ALBUMIN 2.4 g/dL (3.4-5.0); ALKALINE PHOSPHATASE 210 U/L (46-116); ANION GAP 6.7 mmol/L (5.0-14.0); ASPARTATE AMNIOTRANSFERASE,AST 81 U/L (15-37); BILIRUBIN TOTAL 0.4 mg/dL (0.2-1.0); BLOOD UREA NITROGEN,BUN 19 mg/dL (7-18); CALCIUM 8.5 mg/dL (8.5-10.1); CARBON DIOXIDE,CO2 28 mmol/L (21-32); CHLORIDE,CL 105 mmol/L (100-108); CREATININE 0.5 mg/dL (0.6-1.0); EST CRCL DRUG DOSING (CG) 114.48 mL/min; ESTIMATED GFR 113 mL/min (>60); GLUCOSE RANDOM 97 mg/dL (74-106); PHOSPHORUS 4.9 mg/dL (2.5-4.9); POTASSIUM,K 4.2 mmol/L (3.6-5.2); PRO B-TYPE NATRIUR PEPT,BNPPRO 57 pg/mL (5-125); PROTEIN TOTAL,TP 6.2 g/dL (6.4-8.2); SODIUM,NA 140 mmol/L (140-148)
[2022-10-07] MEDS ORDERED: HYDROmorphone 2 MG Tab PO PRN (07:42)
[2022-10-07] MEDS: Hyoscyamine 0.125 MG Tab.SL SL SCH (08:07)
[2022-10-07] MEDS: busPIRone 10 MG Tab PO SCH (08:07)
[2022-10-07] MEDS: Pantoprazole 40 MG Tab.CR PO SCH (08:07)
[2022-10-07] MEDS: Celecoxib 200 MG Cap PO SCH (08:08)
[2022-10-07] MEDS: Docusate Sodium 100 MG Cap PO SCH (08:08)
[2022-10-07] MEDS: CITALOPRAM PO SCH ×2 (08:08)
[2022-10-07] MEDS: VERIFY SCOP PATCH TOP SCH (08:09)
[2022-10-07 10:58] VITALS: BP 94/68; PULSE 67
== END 2022-10-07 11:00 | disposition home or self-care (01) | DRG 220 ==
LOC: JP.ACU 10:37 → JP.MS 16:10 → OBSVTOIN 09-28 10:31
PROVIDERS: ADMIT Surgery; ATTEND Physician Assistant Medical
PROC: 02HV33Z Insertion of Infusion Device into Superior Vena Cava, Percutaneous Approach (ICD-10-PCS; 2022-09-29)
PROC: 3E0436Z Introduction of Nutritional Substance into Central Vein, Percutaneous Approach (ICD-10-PCS; 2022-09-29)
PROC: 30277N1 Transfusion of Nonautologous Red Blood Cells into Products of Conception, Circulatory, Via Natural or Artificial Opening (ICD-10-PCS; 2022-09-29)
PROC: 0FBG0ZZ Excision of Pancreas, Open Approach (ICD-10-PCS; principal; 2022-09-30)
PROC: 0WBH0ZZ Excision of Retroperitoneum, Open Approach (ICD-10-PCS; 2022-09-30)
PROC: 07BP0ZZ Excision of Spleen, Open Approach (ICD-10-PCS; 2022-09-30)
PROC: 3E0M05Z Introduction of Adhesion Barrier into Peritoneal Cavity, Open Approach (ICD-10-PCS; 2022-09-30)
PROC: 0WQF0ZZ Repair Abdominal Wall, Open Approach (ICD-10-PCS; 2022-10-02)
PROC: 0D768ZZ Dilation of Stomach, Via Natural or Artificial Opening Endoscopic (ICD-10-PCS; 2022-10-03)
PROC: 0D7A8ZZ Dilation of Jejunum, Via Natural or Artificial Opening Endoscopic (ICD-10-PCS; 2022-10-03)
DX: K95.89 Other complications of other bariatric procedure (principal); K31.89 Other diseases of stomach and duodenum; R16.1 Splenomegaly, not elsewhere classified; K86.89 Other specified diseases of pancreas; K21.9 Gastro-esophageal reflux disease without esophagitis; I10 Essential (primary) hypertension; E86.0 Dehydration; K91.2 Postsurgical malabsorption, not elsewhere classified; E53.9 Vitamin B deficiency, unspecified; E55.9 Vitamin D deficiency, unspecified; E50.9 Vitamin A deficiency, unspecified; E60 Dietary zinc deficiency; E53.8 Deficiency of other specified B group vitamins; Z79.899 Other long term (current) drug therapy; Z90.49 Acquired absence of other specified parts of digestive tract
CPT/HCPCS: 36415; 36430; 51798; 71046; 71046-26; 74177; 74177-26; 74181; 74181-26; 74240; 74240-26; 76000; 80053; 81001; 82150; 83735; 83880; 84100; 85025; 85027; 86850; 86900; 86901; 86920; 86922; 88307; 88341; 88342; 96361; 96365; 96366; 96367; 96368; 96372; 96375; 96376; 97110-GP; 97161-GP; 97530-GP; A9270-GY; C1726; C9113; G0378; J0131; J0171; J0330; J0690; J0694; J1100; J1170; J1642; J2020; J2060; J2185; J2250; J2405; J2704; J2710; J2765; J2795; J3010; J3410; J3411; J3420; J3475; J3480; J3490; J7120; J7121; P9016; Q9967; U0002

== ENCOUNTER 2022-10-11 05:50 | Day surgery (SDC) | payer BC ==
[2022-10-11] MEDS ORDERED: Lactated Ringers 1,000 ML IV SCH (06:30)
[2022-10-11] MEDS ORDERED: Cyanocobalamin (Vitamin B12) 1,000 MCG/ML SDV IM ONE (06:30)
[2022-10-11] MEDS ORDERED: fentaNYL 100 MCG/2 ML SDV ONE (07:03)
[2022-10-11] MEDS ORDERED: Midazolam 1 MG/ML 2 ML SDV ONE (07:04)
[2022-10-11] MEDS ORDERED: Propofol 200 MG/20 ML SDV ONE (07:04)
[2022-10-11] MEDS ORDERED: Glycopyrrolate 0.2 MG/ML 2 ML SDV IVPUSH ONE (07:15)
[2022-10-11] MEDS ORDERED: MVI, Adult with Vitamin K 10 ML, Thiamine 200 MG, Zinc/Copper/Manganese/Selenium 1 ML i... IV ONE ×4 (07:30)
[2022-10-11] MEDS ORDERED: Dexamethasone 4 MG/ML SDV ONE (07:34)
[2022-10-11] MEDS ORDERED: Fluconazole/Normal Saline 400 MG in Premix Bag 1 BAG IV ONE ×2 (08:20→09:00)
[2022-10-11 08:38] VITALS: BP 91/59; PULSE 89
[2022-10-11] MEDS ORDERED: Scopolamine 1.5 MG Transdermal Patch TOP ONE (08:40)
== END 2022-10-11 09:40 | disposition home or self-care (01) ==
LOC: JP.SDS 05:50
PROVIDERS: ATTEND Surgery
DX: K22.2 Esophageal obstruction (principal); K22.89 Other specified disease of esophagus
CPT/HCPCS: 43249; 76000; A9270; C1726; J1100; J1450; J1642; J2250; J2704; J3010; J3411; J3420; J3490; J7120

== ENCOUNTER 2022-10-20 09:40 | Day surgery (SDC) | payer BC ==
[~2022-10-20 09:40] MED LIST changes: -Lactated Ringers 1,000 ML IV ONE; +Midazolam 1 MG/ML 2 ML SDV ONE; +Propofol 200 MG/20 ML SDV ONE; +fentaNYL 50 MCG/ML SDV ONE
[2022-10-20] MEDS ORDERED: Cyanocobalamin (Vitamin B12) 1,000 MCG/ML SDV IM ONE (10:30)
[2022-10-20] MEDS ORDERED: Scopolamine 1.5 MG Transdermal Patch TOP ONE (10:30)
[2022-10-20] MEDS ORDERED: Lactated Ringers 1,000 ML IV ONE (10:30)
[2022-10-20] MEDS ORDERED: MVI, Adult with Vitamin K 10 ML, Thiamine 200 MG, Zinc/Copper/Manganese/Selenium 1 ML i... IV ONE ×4 (11:30)
[2022-10-20] MEDS ORDERED: Dexamethasone 4 MG/ML SDV ONE (11:45)
[2022-10-20 12:46] VITALS: BP 87/56; PULSE 73
[2022-10-20] MEDS ORDERED: Pneumococcal 20-Valent Conjug 0.5 ML Syringe IM ONE (13:00)
[2022-10-20] MEDS ORDERED: [UNRECOGNIZED DRUG - OTHER] IM ONE (13:00)
[2022-10-20] MEDS ORDERED: Meningococcal Polysaccharide Conjugate Vaccine 4 MCG/0.5 ML SDV IM ONE (13:00)
[2022-10-20] MEDS ORDERED: [UNRECOGNIZED DRUG - OTHER] IM ONE (13:15)
== END 2022-10-20 13:54 | disposition home or self-care (01) ==
LOC: JP.SDS 09:40
PROVIDERS: ATTEND Surgery
DX: K91.89 Other postprocedural complications and disorders of digestive system (principal); K22.2 Esophageal obstruction; K90.9 Intestinal malabsorption, unspecified; Z98.0 Intestinal bypass and anastomosis status; Z23 Encounter for immunization; Z90.81 Acquired absence of spleen
CPT/HCPCS: 43249; 90471; 90648; 90677; A9270; C1726; J1100; J2250; J2704; J3010; J3411; J3420; J7120; G0008; G0009; J3490

== ENCOUNTER 2022-10-31 05:49 | Day surgery (SDC) | payer BC ==
[2022-10-31] MEDS ORDERED: Lactated Ringers 1,000 ML IV ONE (06:30)
[2022-10-31] MEDS ORDERED: fentaNYL 50 MCG/ML SDV ONE (06:58)
[2022-10-31] MEDS ORDERED: Propofol 200 MG/20 ML SDV ONE (06:58)
[2022-10-31] MEDS ORDERED: Midazolam 1 MG/ML 2 ML SDV ONE (06:58)
[2022-10-31] MEDS ORDERED: MVI, Adult with Vitamin K 10 ML, Thiamine 200 MG, Zinc/Copper/Manganese/Selenium 1 ML i... IV ONE ×4 (07:30)
[2022-10-31] MEDS ORDERED: Dexamethasone 4 MG/ML SDV ONE (07:36)
[2022-10-31 08:56] VITALS: BP 108/81; PULSE 89
== END 2022-10-31 10:45 | disposition home or self-care (01) ==
LOC: JP.SDS 05:49
PROVIDERS: ATTEND Surgery
DX: K94.23 Gastrostomy malfunction (principal); R13.10 Dysphagia, unspecified; F41.9 Anxiety disorder, unspecified; F32.A Depression, unspecified; Z95.5 Presence of coronary angioplasty implant and graft; Z79.899 Other long term (current) drug therapy
CPT/HCPCS: 43249; C1726; J1100; J1642; J2250; J2704; J3010; J3411; J7120; J3490

== ENCOUNTER 2022-11-11 05:55 | Day surgery (SDC) | payer BC ==
[2022-11-11] MEDS ORDERED: Lactated Ringers 1,000 ML IV SCH ×2 (06:15)
[2022-11-11 06:27] LABS: HEMATOCRIT 32.8 % (34.3-46.0); MEAN CORPUSCULAR HEMOGLOBIN 30.7 pg (31.6-35.5); MEAN CORPUSCULAR HGB CONC 33.5 g/dL (31.6-35.5); MEAN CORPUSCULAR VOLUME 91.6 fL (81.4-99.0); RED BLOOD CELL COUNT 3.58 M/uL (3.77-5.24); WHITE BLOOD CELL COUNT,WBC 7.5 K/uL (3.2-11.0)
[2022-11-11 06:48] LABS: A/G RATIO 0.8 (1.2-2.2); ALANINE AMINOTRANSFERASE,ALT 55 U/L (12-78); ALKALINE PHOSPHATASE 132 U/L (46-116); ANION GAP 12.6 mmol/L (5.0-14.0); ASPARTATE AMNIOTRANSFERASE,AST 30 U/L (15-37); BILIRUBIN TOTAL 0.3 mg/dL (0.2-1.0); BLOOD UREA NITROGEN,BUN 20 mg/dL (7-18); CALCIUM 8.8 mg/dL (8.5-10.1); CARBON DIOXIDE,CO2 27 mmol/L (21-32); CHLORIDE,CL 102 mmol/L (100-108); CREATININE 0.6 mg/dL (0.6-1.0); EST CRCL DRUG DOSING (CG) 94.71 mL/min; ESTIMATED GFR 108 mL/min (>60); GLUCOSE RANDOM 95 mg/dL (74-106); POTASSIUM,K 3.6 mmol/L (3.6-5.2); PROTEIN TOTAL,TP 6.6 g/dL (6.4-8.2); SODIUM,NA 138 mmol/L (140-148)
[2022-11-11] MEDS: Cyanocobalamin (Vitamin B12) 1,000 MCG/ML SDV IM ONE ×2 (06:54→07:10)
[2022-11-11] MEDS ORDERED: Midazolam 1 MG/ML 2 ML SDV ONE (07:07)
[2022-11-11] MEDS ORDERED: Propofol 200 MG/20 ML SDV ONE (07:07)
[2022-11-11] MEDS ORDERED: fentaNYL 50 MCG/ML SDV ONE ×2 (07:07→07:39)
[2022-11-11] MEDS ORDERED: Glycopyrrolate 0.2 MG/ML 2 ML SDV IVPUSH ONE (07:15)
[2022-11-11] MEDS ORDERED: Ondansetron 4 MG/2 ML SDV IVPUSH ONE (07:20)
[2022-11-11] MEDS ORDERED: Dexamethasone 4 MG/ML SDV ONE (07:43)
[2022-11-11] MEDS ORDERED: MVI, Adult with Vitamin K 10 ML, Thiamine 200 MG, Zinc/Copper/Manganese/Selenium 1 ML i... IV ONE ×4 (08:15)
[2022-11-11 08:50] VITALS: BP 112/68; PULSE 82
== END 2022-11-11 09:00 | disposition home or self-care (01) ==
LOC: JP.SDS 05:55
PROVIDERS: ATTEND Surgery
DX: K94.23 Gastrostomy malfunction (principal); R73.03 Prediabetes; Z79.899 Other long term (current) drug therapy
CPT/HCPCS: 36415; 43249; 80053; 85027; C1726; J1100; J1642; J2250; J2405; J2704; J3010; J3411; J3420; J7120; J3490

== ENCOUNTER 2022-11-18 05:50 | Inpatient (IN) | payer BC ==
[2022-11-18] MEDS: Dextrose 5%-Lactated Ringers 1,000 ML IV SCH ×2 (06:11→09:39)
[2022-11-18 06:13] LABS: HEMATOCRIT 34.5 % (34.3-46.0); HEMOGLOBIN 11.5 g/dL (11.2-15.5); MEAN CORPUSCULAR HEMOGLOBIN 30.7 pg (31.6-35.5); MEAN CORPUSCULAR HGB CONC 33.3 g/dL (31.6-35.5); RED BLOOD CELL COUNT 3.75 M/uL (3.77-5.24); WHITE BLOOD CELL COUNT,WBC 7.9 K/uL (3.2-11.0)
[2022-11-18] MEDS ORDERED: fentaNYL 100 MCG/2 ML SDV ONE (06:31)
[2022-11-18 06:45] LABS: A/G RATIO 0.9 (1.2-2.2); ALANINE AMINOTRANSFERASE,ALT 45 U/L (12-78); ALBUMIN 3.2 g/dL (3.4-5.0); ALKALINE PHOSPHATASE 141 U/L (46-116); ANION GAP 11.5 mmol/L (5.0-14.0); ASPARTATE AMNIOTRANSFERASE,AST 28 U/L (15-37); BILIRUBIN TOTAL 0.4 mg/dL (0.2-1.0); BLOOD UREA NITROGEN,BUN 17 mg/dL (7-18); CALCIUM 8.8 mg/dL (8.5-10.1); CARBON DIOXIDE,CO2 27 mmol/L (21-32); CHLORIDE,CL 103 mmol/L (100-108); CREATININE 0.7 mg/dL (0.6-1.0); EST CRCL DRUG DOSING (CG) 81.18 mL/min; ESTIMATED GFR 104 mL/min (>60); FERRITIN 215 ng/ml (8-388); GLUCOSE RANDOM 97 mg/dL (74-106); MAGNESIUM 1.8 mg/dL (1.8-2.4); PHOSPHORUS 4.1 mg/dL (2.5-4.9); POTASSIUM,K 3.5 mmol/L (3.6-5.2); PROTEIN TOTAL,TP 6.7 g/dL (6.4-8.2); SODIUM,NA 138 mmol/L (140-148)
[2022-11-18] MEDS ORDERED: Propofol 200 MG/20 ML SDV ONE (07:00)
[2022-11-18] MEDS ORDERED: Midazolam 1 MG/ML 2 ML SDV ONE (07:00)
[2022-11-18] MEDS ORDERED: ceFAZolin 2 GM in Premix Bag 1 BAG IV ONE (07:15)
[2022-11-18] MEDS ORDERED: ceFAZolin 2 GM in Sodium Chloride 0.9% 100 ML IV ONE (07:15)
[2022-11-18] MEDS ORDERED: Glycopyrrolate 0.2 MG/ML 2 ML SDV IVPUSH ONE (07:15)
[2022-11-18] MEDS ORDERED: Dexamethasone 4 MG/ML SDV ONE (07:39)
[2022-11-18] MEDS ORDERED: Scopolamine 1.5 MG Transdermal Patch ONE (07:45)
[2022-11-18] MEDS ORDERED: Ondansetron 4 MG/2 ML SDV IVPUSH ONE (08:08)
[2022-11-18] MEDS ORDERED: Metoclopramide 10 MG/2 ML SDV IV ONE (08:30)
[2022-11-18] MEDS ORDERED: LORazepam 2 MG/ML SDV IVPUSH ONE (08:30)
[2022-11-18] MEDS: Hyoscyamine 0.125 MG Tab.SL SL PRN ×2 (10:28→17:38)
[2022-11-18] MEDS: SCOPOLAMINE PATCH CHECK TOP SCH (10:33)
[2022-11-18] MEDS: Acetaminophen 325 MG Tab PO SCH ×3 (11:16→21:16)
[2022-11-18] MEDS: HYDROmorphone 0.5 MG/0.5 ML Syringe IVPUSH PRN ×5 (11:24→23:46)
[2022-11-18] MEDS: Ondansetron 4 MG/2 ML SDV IVPUSH PRN ×3 (11:25→23:44)
[2022-11-18] MEDS: Metoclopramide 10 MG/2 ML SDV IVPUSH PRN ×2 (13:28→20:18)
[2022-11-18] MEDS: busPIRone 10 MG Tab PO SCH ×2 (13:32→21:16)
[2022-11-18] MEDS ORDERED: MVI, Adult with Vitamin K 10 ML, Zinc/Copper/Manganese/Selenium 1 ML in Dextrose 5%-Lac... IV ONE ×3 (16:00)
[2022-11-18] MEDS: Citalopram 20 MG Tab PO SCH (21:16)
[2022-11-19] MEDS: Dextrose 5%-Lactated Ringers 1,000 ML IV SCH (01:40)
[2022-11-19] MEDS: Metoclopramide 10 MG/2 ML SDV IVPUSH PRN ×3 (02:59→21:52)
[2022-11-19] MEDS: HYDROmorphone 0.5 MG/0.5 ML Syringe IVPUSH PRN ×5 (03:02→21:52)
[2022-11-19] MEDS: Acetaminophen 325 MG Tab PO SCH (03:07)
[2022-11-19] MEDS: Ondansetron 4 MG/2 ML SDV IVPUSH PRN ×3 (06:29→19:23)
[2022-11-19] MEDS: Hyoscyamine 0.125 MG Tab.SL SL PRN ×3 (07:28→21:52)
[2022-11-19] MEDS: busPIRone 10 MG Tab PO SCH ×5 (08:41→22:04)
[2022-11-19] MEDS: SCOPOLAMINE PATCH CHECK TOP SCH (08:42)
[2022-11-19] MEDS: HYDROmorphone 1 MG/ML Syringe IV PRN (10:01)
[2022-11-19] MEDS: Acetaminophen 1,000 MG in Premix Bag 1 BAG IV SCH ×3 (10:07→21:52)
[2022-11-19] MEDS: LORazepam 2 MG/ML SDV IVPUSH PRN ×3 (10:20→20:02)
[2022-11-19] MEDS: 1: AA 5%/Calcium/D15W/Lytes 1,000 ML with MVI, Adult with Vitamin K 10 ML, Zinc/Copper/M IV SCH ×6 (12:13→21:52)
[2022-11-19] MEDS: Fat Emulsion 100 ML IV SCH (16:11)
[2022-11-19] MEDS: Citalopram 20 MG Tab PO SCH ×2 (21:52→22:04)
[2022-11-20] MEDS: Ondansetron 4 MG/2 ML SDV IVPUSH PRN ×4 (00:41→23:42)
[2022-11-20] MEDS: HYDROmorphone 0.5 MG/0.5 ML Syringe IVPUSH PRN ×10 (00:41→22:34)
[2022-11-20] MEDS: Acetaminophen 1,000 MG in Premix Bag 1 BAG IV SCH ×4 (03:31→22:35)
[2022-11-20] MEDS: Metoclopramide 10 MG/2 ML SDV IVPUSH PRN ×4 (03:54→22:34)
[2022-11-20 04:09] LABS: BASOPHILS ABSOLUTE AUTO 0.05 K/uL (0.00-0.10); BASOPHILS PERCENT AUTO 0.3 % (0.1-1.3); EOSINOPHILS ABSOLUTE AUTO 0.12 K/uL (0.00-0.40); EOSINOPHILS PERCENT AUTO 0.8 % (0.0-5.4); HEMATOCRIT 31.6 % (34.3-46.0); HEMOGLOBIN 10.5 g/dL (11.2-15.5); IMMATURE GRAN ABSOLUTE AUTO 0.05 K/uL (0.00-0.23); IMMATURE GRAN PERCENT AUTO 0.3 % (0.0-0.7); LYMPHOCYTES ABSOLUTE AUTO 4.78 K/uL (0.8-3.3); LYMPHOCYTES PERCENT AUTO 31.3 % (11.4-47.7); MEAN CORPUSCULAR HEMOGLOBIN 30.4 pg (31.6-35.5); MEAN CORPUSCULAR HGB CONC 33.2 g/dL (31.6-35.5); MEAN CORPUSCULAR VOLUME 91.6 fL (81.4-99.0); MONOCYTES ABSOLUTE AUTO 1.55 K/uL (0.20-0.90); MONOCYTES PERCENT AUTO 10.2 % (3.3-12.6); NEUTROPHILS ABSOLUTE AUTO 8.71 K/uL (1.0-7.6); NEUTROPHILS PERCENT AUTO 57.1 % (40.0-78.1); PLATELET COUNT,PLT 404 K/uL (130-375); RED BLOOD CELL COUNT 3.45 M/uL (3.77-5.24); WHITE BLOOD CELL COUNT,WBC 15.3 K/uL (3.2-11.0)
[2022-11-20 04:34] LABS: A/G RATIO 0.8 (1.2-2.2); ALANINE AMINOTRANSFERASE,ALT 35 U/L (12-78); ALBUMIN 2.7 g/dL (3.4-5.0); ALKALINE PHOSPHATASE 111 U/L (46-116); ASPARTATE AMNIOTRANSFERASE,AST 19 U/L (15-37); BILIRUBIN TOTAL 0.3 mg/dL (0.2-1.0); BLOOD UREA NITROGEN,BUN 14 mg/dL (7-18); CALCIUM 8.4 mg/dL (8.5-10.1); CARBON DIOXIDE,CO2 26 mmol/L (21-32); CHLORIDE,CL 102 mmol/L (100-108); CREATININE 0.6 mg/dL (0.6-1.0); ESTIMATED GFR 108 mL/min (>60); GLUCOSE RANDOM 128 mg/dL (74-106); MAGNESIUM 1.4 mg/dL (1.8-2.4); PHOSPHORUS 3.1 mg/dL (2.5-4.9); POTASSIUM,K 3.3 mmol/L (3.6-5.2); PROTEIN TOTAL,TP 6.2 g/dL (6.4-8.2); SODIUM,NA 136 mmol/L (140-148)
[2022-11-20 05:12] LABS: ANION GAP 11.3 mmol/L (5.0-14.0)
[2022-11-20] MEDS: LORazepam 2 MG/ML SDV IVPUSH PRN ×3 (07:19→20:25)
[2022-11-20] MEDS: 1: AA 5%/Calcium/D15W/Lytes 1,000 ML with MVI, Adult with Vitamin K 10 ML, Zinc/Copper/M IV SCH ×6 (08:10→18:24)
[2022-11-20] MEDS: SCOPOLAMINE PATCH CHECK TOP SCH (09:46)
[2022-11-20] MEDS: busPIRone 10 MG Tab PO SCH ×3 (09:47→20:12)
[2022-11-20] MEDS: Potassium Phosphates 15 MMOLE in Sodium Chloride 0.9% 100 ML IV SCH ×2 (11:16→16:10)
[2022-11-20] MEDS: Magnesium Sulfate/Water 2 GM in Premix Bag 1 BAG IV SCH ×3 (11:16→22:35)
[2022-11-20] MEDS: Fat Emulsion 100 ML IV SCH (15:58)
[2022-11-20] MEDS: Citalopram 20 MG Tab PO SCH (20:11)
[2022-11-20] MEDS: Hyoscyamine 0.125 MG Tab.SL SL PRN (20:26)
[2022-11-20] MEDS: Dextrose 5%-Lactated Ringers 1,000 ML IV SCH (22:49)
[2022-11-21] MEDS: HYDROmorphone 0.5 MG/0.5 ML Syringe IVPUSH PRN ×6 (00:34→22:29)
[2022-11-21] MEDS: LORazepam 2 MG/ML SDV IVPUSH PRN ×2 (02:08→19:43)
[2022-11-21] MEDS: HYDROmorphone 1 MG/ML Syringe IV PRN (03:15)
[2022-11-21] MEDS: 1: AA 5%/Calcium/D15W/Lytes 1,000 ML with MVI, Adult with Vitamin K 10 ML, Zinc/Copper/M IV SCH ×6 (03:15→14:04)
[2022-11-21] MEDS: Acetaminophen 1,000 MG in Premix Bag 1 BAG IV SCH (03:15)
[2022-11-21] MEDS: Ondansetron 4 MG/2 ML SDV IVPUSH PRN ×2 (04:36→09:19)
[2022-11-21] MEDS: Magnesium Sulfate/Water 2 GM in Premix Bag 1 BAG IV SCH ×5 (04:37→23:35)
[2022-11-21] MEDS: Scopolamine 1.5 MG Transdermal Patch TOP SCH (09:21)
[2022-11-21] MEDS: SCOPOLAMINE PATCH CHECK TOP SCH (09:22)
[2022-11-21] MEDS: busPIRone 10 MG Tab PO SCH ×4 (09:23→20:34)
[2022-11-21] MEDS ORDERED: fentaNYL 250 MCG/5 ML SDV ONE (09:49)
[2022-11-21] MEDS ORDERED: Ondansetron 4 MG/2 ML SDV ONE (10:00)
[2022-11-21] MEDS ORDERED: Dexamethasone 4 MG/ML SDV ONE (10:00)
[2022-11-21] MEDS ORDERED: Propofol 200 MG/20 ML SDV ONE (10:00)
[2022-11-21] MEDS ORDERED: Succinylcholine 200 MG/10 ML MDV ONE (10:00)
[2022-11-21] MEDS ORDERED: Glycopyrrolate 0.2 MG/ML 5 ML MDV ONE (10:00)
[2022-11-21] MEDS ORDERED: Rocuronium 50 MG/5 ML Vial ONE (10:00)
[2022-11-21] MEDS ORDERED: Neostigmine Methylsulfate 1 MG/ML 5 ML Syringe ONE (10:00)
[2022-11-21] MEDS: Metoclopramide 10 MG/2 ML SDV IVPUSH PRN (10:05)
[2022-11-21] MEDS: Acetaminophen 325 MG Tab PO SCH ×3 (13:07→21:56)
[2022-11-21] MEDS: HYDROmorphone 2 MG Tab PO PRN (14:13)
[2022-11-21] MEDS: Fat Emulsion 100 ML IV SCH (16:22)
[2022-11-21] MEDS: Citalopram 20 MG Tab PO SCH ×2 (19:47→20:34)
[2022-11-21] MEDS: Dextrose 5%-Lactated Ringers 1,000 ML IV SCH (22:00)
[2022-11-22] MEDS: HYDROmorphone 0.5 MG/0.5 ML Syringe IVPUSH PRN ×9 (00:27→23:07)
[2022-11-22] MEDS: LORazepam 2 MG/ML SDV IVPUSH PRN ×5 (00:27→21:08)
[2022-11-22] MEDS: 1: AA 5%/Calcium/D15W/Lytes 1,000 ML with MVI, Adult with Vitamin K 10 ML, Zinc/Copper/M IV SCH ×9 (00:27→21:02)
[2022-11-22] MEDS: Acetaminophen 325 MG Tab PO SCH ×4 (03:04→22:49)
[2022-11-22] MEDS: HYDROmorphone 1 MG/ML Syringe IV PRN (03:04)
[2022-11-22] MEDS: Magnesium Sulfate/Water 2 GM in Premix Bag 1 BAG IV SCH ×4 (04:00→22:50)
[2022-11-22 04:39] LABS: BASOPHILS PERCENT AUTO 0.2 % (0.1-1.3); EOSINOPHILS PERCENT AUTO 0.2 % (0.0-5.4); HEMATOCRIT 31.5 % (34.3-46.0); HEMOGLOBIN 10.4 g/dL (11.2-15.5); IMMATURE GRAN ABSOLUTE AUTO 0.05 K/uL (0.00-0.23); IMMATURE GRAN PERCENT AUTO 0.4 % (0.0-0.7); LYMPHOCYTES ABSOLUTE AUTO 2.93 K/uL (0.8-3.3); LYMPHOCYTES PERCENT AUTO 23.6 % (11.4-47.7); MEAN CORPUSCULAR HEMOGLOBIN 30.8 pg (31.6-35.5); MEAN CORPUSCULAR VOLUME 93.2 fL (81.4-99.0); MONOCYTES ABSOLUTE AUTO 1.09 K/uL (0.20-0.90); MONOCYTES PERCENT AUTO 8.8 % (3.3-12.6); NEUTROPHILS PERCENT AUTO 66.8 % (40.0-78.1); PLATELET COUNT,PLT 381 K/uL (130-375); RED BLOOD CELL COUNT 3.38 M/uL (3.77-5.24); WHITE BLOOD CELL COUNT,WBC 12.4 K/uL (3.2-11.0)
[2022-11-22 04:46] LABS: BASOPHILS ABSOLUTE AUTO 0.02 K/uL (0.00-0.10); EOSINOPHILS ABSOLUTE AUTO 0.02 K/uL (0.00-0.40)
[2022-11-22 05:00] LABS: A/G RATIO 0.7 (1.2-2.2); ALANINE AMINOTRANSFERASE,ALT 85 U/L (12-78); ALBUMIN 2.7 g/dL (3.4-5.0); ALKALINE PHOSPHATASE 122 U/L (46-116); ASPARTATE AMNIOTRANSFERASE,AST 77 U/L (15-37); BILIRUBIN TOTAL 0.3 mg/dL (0.2-1.0); BLOOD UREA NITROGEN,BUN 21 mg/dL (7-18); CALCIUM 8.6 mg/dL (8.5-10.1); CARBON DIOXIDE,CO2 29 mmol/L (21-32); CHLORIDE,CL 102 mmol/L (100-108); CREATININE 0.5 mg/dL (0.6-1.0); EST CRCL DRUG DOSING (CG) 114.48 mL/min; ESTIMATED GFR 113 mL/min (>60); GLUCOSE RANDOM 105 mg/dL (74-106); MAGNESIUM 2.5 mg/dL (1.8-2.4); PHOSPHORUS 4.6 mg/dL (2.5-4.9); POTASSIUM,K 3.9 mmol/L (3.6-5.2); PROTEIN TOTAL,TP 6.4 g/dL (6.4-8.2); SODIUM,NA 136 mmol/L (140-148)
[2022-11-22 05:02] LABS: ANION GAP 8.9 mmol/L (5.0-14.0)
[2022-11-22] MEDS: busPIRone 10 MG Tab PO SCH ×3 (09:11→20:59)
[2022-11-22] MEDS: SCOPOLAMINE PATCH CHECK TOP SCH (09:12)
[2022-11-22] MEDS: Fat Emulsion 100 ML IV SCH (15:56)
[2022-11-22] MEDS ORDERED: Aluminum Hydroxide/Magnesium Hydroxide/Simethicone Susp 30 ML Cup PO PRN (20:42)
[2022-11-22] MEDS: Citalopram 20 MG Tab PO SCH (20:59)
[2022-11-22] MEDS: Ondansetron 4 MG/2 ML SDV IVPUSH PRN (22:08)
[2022-11-22] MEDS: Metoclopramide 10 MG/2 ML SDV IVPUSH PRN (22:44)
[2022-11-23] MEDS: LORazepam 2 MG/ML SDV IVPUSH PRN ×2 (01:16→07:31)
[2022-11-23] MEDS: HYDROmorphone 0.5 MG/0.5 ML Syringe IVPUSH PRN ×2 (01:16→07:31)
[2022-11-23] MEDS: Acetaminophen 325 MG Tab PO SCH ×4 (04:43→21:14)
[2022-11-23] MEDS: Magnesium Sulfate/Water 2 GM in Premix Bag 1 BAG IV SCH (05:27)
[2022-11-23] MEDS: 1: AA 5%/Calcium/D15W/Lytes 1,000 ML with MVI, Adult with Vitamin K 10 ML, Zinc/Copper/M IV SCH ×3 (07:37)
[2022-11-23] MEDS: busPIRone 10 MG Tab PO SCH ×3 (08:27→21:14)
[2022-11-23] MEDS: SCOPOLAMINE PATCH CHECK TOP SCH (08:28)
[2022-11-23] MEDS: HYDROmorphone 2 MG Tab PO PRN ×3 (12:18→23:43)
[2022-11-23] MEDS: Ondansetron 4 MG Tab.DIS PO PRN (14:56)
[2022-11-23] MEDS: LORazepam 1 MG Tab PO PRN ×2 (14:56→19:40)
[2022-11-23] MEDS: Fat Emulsion 100 ML IV SCH (15:34)
[2022-11-23] MEDS: Citalopram 20 MG Tab PO SCH (21:14)
[2022-11-23] MEDS ORDERED: 1: AA 5%/Calcium/D15W/Lytes 1,000 ML with MVI, Adult with Vitamin K 10 ML, Zinc/Copper/M IV SCH ×3 (23:30)
[2022-11-23] MEDS: Dextrose 5%-Lactated Ringers 1,000 ML IV SCH (23:43)
[2022-11-24] MEDS: HYDROmorphone 2 MG Tab PO PRN ×5 (03:41→21:26)
[2022-11-24] MEDS: Acetaminophen 325 MG Tab PO SCH ×4 (03:41→21:30)
[2022-11-24] MEDS: LORazepam 1 MG Tab PO PRN ×5 (03:41→21:36)
[2022-11-24] MEDS: Ondansetron 4 MG Tab.DIS PO PRN ×3 (05:46→15:59)
[2022-11-24] MEDS: busPIRone 10 MG Tab PO SCH ×3 (08:25→21:27)
[2022-11-24] MEDS: SCOPOLAMINE PATCH CHECK TOP SCH (08:26)
[2022-11-24] MEDS: Scopolamine 1.5 MG Transdermal Patch TOP SCH (08:26)
[2022-11-24] MEDS: Fat Emulsion 100 ML IV SCH (15:46)
[2022-11-24] MEDS ORDERED: 1: AA 5%/Calcium/D15W/Lytes 1,000 ML with MVI, Adult with Vitamin K 10 ML, Zinc/Copper/M IV SCH ×3 (21:00)
[2022-11-24] MEDS: Citalopram 20 MG Tab PO SCH (21:34)
[2022-11-25] MEDS: HYDROmorphone 2 MG Tab PO PRN ×2 (03:49→08:42)
[2022-11-25] MEDS: Acetaminophen 325 MG Tab PO SCH (03:49)
[2022-11-25] MEDS: LORazepam 1 MG Tab PO PRN (03:49)
[2022-11-25 04:40] LABS: HEMOGLOBIN 10.8 g/dL (11.2-15.5); MEAN CORPUSCULAR HEMOGLOBIN 30.4 pg (31.6-35.5); MEAN CORPUSCULAR HGB CONC 32.7 g/dL (31.6-35.5); RED BLOOD CELL COUNT 3.55 M/uL (3.77-5.24); WHITE BLOOD CELL COUNT,WBC 7.8 K/uL (3.2-11.0)
[2022-11-25 05:06] LABS: A/G RATIO 0.8 (1.2-2.2); ALANINE AMINOTRANSFERASE,ALT 108 U/L (12-78); ALBUMIN 2.7 g/dL (3.4-5.0); ALKALINE PHOSPHATASE 111 U/L (46-116); ANION GAP 8.9 mmol/L (5.0-14.0); ASPARTATE AMNIOTRANSFERASE,AST 45 U/L (15-37); BILIRUBIN TOTAL 0.3 mg/dL (0.2-1.0); BLOOD UREA NITROGEN,BUN 19 mg/dL (7-18); CALCIUM 8.9 mg/dL (8.5-10.1); CARBON DIOXIDE,CO2 30 mmol/L (21-32); CHLORIDE,CL 101 mmol/L (100-108); CREATININE 0.6 mg/dL (0.6-1.0); ESTIMATED GFR 108 mL/min (>60); GLUCOSE RANDOM 114 mg/dL (74-106); MAGNESIUM 1.8 mg/dL (1.8-2.4); PHOSPHORUS 4.3 mg/dL (2.5-4.9); POTASSIUM,K 3.9 mmol/L (3.6-5.2); PROTEIN TOTAL,TP 6.2 g/dL (6.4-8.2); SODIUM,NA 136 mmol/L (140-148)
[2022-11-25] MEDS: Ondansetron 4 MG Tab.DIS PO PRN (06:07)
[2022-11-25 07:41] VITALS: BP 94/55; PULSE 66
[2022-11-25] MEDS: SCOPOLAMINE PATCH CHECK TOP SCH (08:43)
[2022-11-25] MEDS: busPIRone 10 MG Tab PO SCH (08:43)
== END 2022-11-25 09:45 | disposition home or self-care (01) | DRG 222 ==
LOC: JP.SDS 05:50 → JP.MS 07:45 → JP.SDS 11-19 16:53
PROVIDERS: ADMIT Surgery; ATTEND Physician Assistant Medical
PROC: 0DP58DZ Removal of Intraluminal Device from Esophagus, Via Natural or Artificial Opening Endoscopic (ICD-10-PCS; principal; 2022-11-21)
DX: K91.89 Other postprocedural complications and disorders of digestive system (principal); F41.9 Anxiety disorder, unspecified; K21.9 Gastro-esophageal reflux disease without esophagitis; I10 Essential (primary) hypertension; Z87.442 Personal history of urinary calculi; Z90.49 Acquired absence of other specified parts of digestive tract; Z90.710 Acquired absence of both cervix and uterus; Z90.722 Acquired absence of ovaries, bilateral; Z90.89 Acquired absence of other organs; Z98.890 Other specified postprocedural states
CPT/HCPCS: 36415; 76000; 80053; 82728; 83735; 84100; 85025; 85027; A9270-GY; C1726; C1874; J0131; J0330; J0690; J1100; J1170; J2060; J2250; J2405; J2704; J2710; J2765; J3010; J3475; J3490; J7121; Q0162

== ENCOUNTER 2022-12-02 05:31 | Inpatient (IN) | payer BC ==
[2022-12-02 05:56] LABS: HEMOGLOBIN 10.8 g/dL (11.2-15.5); MEAN CORPUSCULAR HEMOGLOBIN 30.9 pg (31.6-35.5); MEAN CORPUSCULAR HGB CONC 33.8 g/dL (31.6-35.5); MEAN CORPUSCULAR VOLUME 91.7 fL (81.4-99.0); RED BLOOD CELL COUNT 3.49 M/uL (3.77-5.24); WHITE BLOOD CELL COUNT,WBC 8.1 K/uL (3.2-11.0)
[2022-12-02] MEDS ORDERED: Dextrose 5%-Lactated Ringers 1,000 ML IV SCH (06:00)
[2022-12-02 06:42] LABS: A/G RATIO 0.9 (1.2-2.2); ALANINE AMINOTRANSFERASE,ALT 64 U/L (12-78); ALBUMIN 3.2 g/dL (3.4-5.0); ALKALINE PHOSPHATASE 132 U/L (46-116); ASPARTATE AMNIOTRANSFERASE,AST 28 U/L (15-37); BILIRUBIN TOTAL 0.4 mg/dL (0.2-1.0); BLOOD UREA NITROGEN,BUN 20 mg/dL (7-18); CALCIUM 8.8 mg/dL (8.5-10.1); CARBON DIOXIDE,CO2 24 mmol/L (21-32); CHLORIDE,CL 105 mmol/L (100-108); CREATININE 0.7 mg/dL (0.6-1.0); EST CRCL DRUG DOSING (CG) 82.67 mL/min; ESTIMATED GFR 104 mL/min (>60); FERRITIN 320 ng/ml (8-388); GLUCOSE RANDOM 91 mg/dL (74-106); MAGNESIUM 1.6 mg/dL (1.8-2.4); PHOSPHORUS 4.4 mg/dL (2.5-4.9); POTASSIUM,K 3.5 mmol/L (3.6-5.2); PROTEIN TOTAL,TP 6.7 g/dL (6.4-8.2); SODIUM,NA 138 mmol/L (140-148)
[2022-12-02] MEDS ORDERED: Lidocaine 1% with EPINEPHrine 1:100,000 50 ML MDV ONE (06:42)
[2022-12-02] MEDS ORDERED: Meropenem 500 MG SDV ONE (06:42)
[2022-12-02] MEDS ORDERED: Bupivacaine 0.5% 50 ML MDV ONE (06:42)
[2022-12-02] MEDS: Scopolamine 1.5 MG Transdermal Patch TRDERM SCH (06:45)
[2022-12-02 06:53] LABS: ANION GAP 12.5 mmol/L (5.0-14.0)
[2022-12-02] MEDS ORDERED: Dexamethasone 4 MG/ML SDV ONE (07:07)
[2022-12-02] MEDS ORDERED: Glycopyrrolate 0.2 MG/ML 5 ML MDV ONE (07:07)
[2022-12-02] MEDS ORDERED: Neostigmine Methylsulfate 1 MG/ML 5 ML Syringe ONE (07:07)
[2022-12-02] MEDS ORDERED: Ondansetron 4 MG/2 ML SDV ONE (07:07)
[2022-12-02] MEDS ORDERED: Rocuronium 50 MG/5 ML Vial ONE (07:07)
[2022-12-02] MEDS ORDERED: Propofol 200 MG/20 ML SDV ONE (07:07)
[2022-12-02] MEDS ORDERED: fentaNYL 250 MCG/5 ML SDV ONE (07:07)
[2022-12-02] MEDS ORDERED: ceFAZolin 2 GM in Premix Bag 1 BAG IV ONE (07:15)
[2022-12-02] MEDS ORDERED: Ketamine 16 MG in Sodium Chloride 0.9% 19.84 ML IV SCH (07:30)
[2022-12-02] MEDS ORDERED: Ropivacaine 28 ML, dexAMETHasone 8 MG, EPINEPHrine 0.4 MG, Sodium Chloride 0.9% 49.6 ML NERVRT SCH ×4 (07:30)
[2022-12-02] MEDS ORDERED: Ketamine 500 MG/5 ML MDV IV SCH (07:30)
[2022-12-02] MEDS ORDERED: fentaNYL 100 MCG/2 ML SDV ONE (08:36)
[2022-12-02] MEDS: HYDROmorphone/Normal Saline 6 MG/30 ML PCA Vial IV PRN ×3 (09:58→20:11)
[2022-12-02] MEDS ORDERED: Naloxone 0.4 MG/ML SDV IV PRN (10:00)
[2022-12-02] MEDS: hydrOXYzine HCL 100 MG/2 ML SDV IM PRN ×2 (10:19→20:17)
[2022-12-02] MEDS: Magnesium Sulfate/Water 2 GM in Premix Bag 1 BAG IV SCH ×3 (10:43→23:25)
[2022-12-02] MEDS: Cyclobenzaprine 10 MG Tab PO PRN ×2 (10:47→21:49)
[2022-12-02] MEDS ORDERED: Pantoprazole 40 MG Vial IV SCH (11:00)
[2022-12-02] MEDS: Ondansetron 4 MG/2 ML SDV IVPUSH PRN ×2 (11:05→21:51)
[2022-12-02] MEDS: D5 1/2 NS w/ 20 mEq/L KCl 1,000 ML IV SCH ×2 (11:13→21:27)
[2022-12-02] MEDS: VERIFY SCOP PATCH TOP SCH (12:21)
[2022-12-02] MEDS: ceFAZolin 2 GM in Premix Bag 1 BAG IV SCH ×2 (14:30→21:52)
[2022-12-02] MEDS: Acetaminophen 325 MG Tab PO SCH ×2 (14:30→20:12)
[2022-12-02] MEDS: busPIRone 10 MG Tab PO SCH ×2 (14:30→20:13)
[2022-12-02] MEDS: Hyoscyamine 0.125 MG Tab.SL SL PRN (14:46)
[2022-12-02] MEDS ORDERED: Loperamide 2 MG Cap PO PRN (16:07)
[2022-12-02] MEDS: LORazepam 1 MG Tab PO PRN (20:11)
[2022-12-02] MEDS: Citalopram 20 MG Tab PO SCH (20:13)
[2022-12-02] MEDS ORDERED: Citalopram 20 MG Tab PO SCH (21:00)
[2022-12-03] MEDS: Acetaminophen 325 MG Tab PO SCH ×4 (01:45→20:22)
[2022-12-03] MEDS: LORazepam 1 MG Tab PO PRN ×4 (02:01→20:24)
[2022-12-03] MEDS: hydrOXYzine HCL 100 MG/2 ML SDV IM PRN ×4 (02:57→20:21)
[2022-12-03 04:22] LABS: BASOPHILS ABSOLUTE AUTO 0.03 K/uL (0.00-0.10); BASOPHILS PERCENT AUTO 0.2 % (0.1-1.3); HEMATOCRIT 30.6 % (34.3-46.0); HEMOGLOBIN 10.2 g/dL (11.2-15.5); IMMATURE GRAN ABSOLUTE AUTO 0.11 K/uL (0.00-0.23); IMMATURE GRAN PERCENT AUTO 0.6 % (0.0-0.7); LYMPHOCYTES ABSOLUTE AUTO 1.99 K/uL (0.8-3.3); MEAN CORPUSCULAR HGB CONC 33.3 g/dL (31.6-35.5); MONOCYTES ABSOLUTE AUTO 0.88 K/uL (0.20-0.90); MONOCYTES PERCENT AUTO 4.9 % (3.3-12.6); NEUTROPHILS ABSOLUTE AUTO 15.11 K/uL (1.0-7.6); NEUTROPHILS PERCENT AUTO 83.3 % (40.0-78.1); PLATELET COUNT,PLT 395 K/uL (130-375); RED BLOOD CELL COUNT 3.29 M/uL (3.77-5.24); WHITE BLOOD CELL COUNT,WBC 18.1 K/uL (3.2-11.0)
[2022-12-03] MEDS: HYDROmorphone/Normal Saline 6 MG/30 ML PCA Vial IV PRN ×3 (04:43→21:29)
[2022-12-03 04:47] LABS: A/G RATIO 0.9 (1.2-2.2); ALANINE AMINOTRANSFERASE,ALT 50 U/L (12-78); ALKALINE PHOSPHATASE 119 U/L (46-116); ASPARTATE AMNIOTRANSFERASE,AST 34 U/L (15-37); BILIRUBIN TOTAL 0.4 mg/dL (0.2-1.0); BLOOD UREA NITROGEN,BUN 9 mg/dL (7-18); CALCIUM 8.5 mg/dL (8.5-10.1); CARBON DIOXIDE,CO2 26 mmol/L (21-32); CHLORIDE,CL 104 mmol/L (100-108); CREATININE 0.6 mg/dL (0.6-1.0); EST CRCL DRUG DOSING (CG) 96.45 mL/min; ESTIMATED GFR 108 mL/min (>60); GLUCOSE RANDOM 164 mg/dL (74-106); POTASSIUM,K 4.2 mmol/L (3.6-5.2); PROTEIN TOTAL,TP 6.5 g/dL (6.4-8.2); SODIUM,NA 137 mmol/L (140-148)
[2022-12-03] MEDS: Magnesium Sulfate/Water 2 GM in Premix Bag 1 BAG IV SCH ×4 (04:47→22:48)
[2022-12-03 05:01] LABS: ANION GAP 11.2 mmol/L (5.0-14.0)
[2022-12-03] MEDS: ceFAZolin 2 GM in Premix Bag 1 BAG IV SCH (06:27)
[2022-12-03] MEDS: busPIRone 10 MG Tab PO SCH ×3 (08:08→20:23)
[2022-12-03] MEDS: VERIFY SCOP PATCH TOP SCH (08:10)
[2022-12-03] MEDS: D5 1/2 NS w/ 20 mEq/L KCl 1,000 ML IV SCH ×2 (08:53→20:27)
[2022-12-03] MEDS: Cyclobenzaprine 10 MG Tab PO PRN ×2 (10:11→17:59)
[2022-12-03] MEDS: Pantoprazole 40 MG Tab.CR PO SCH (11:25)
[2022-12-03] MEDS: Hyoscyamine 0.125 MG Tab.SL SL PRN ×2 (11:30→19:15)
[2022-12-03] MEDS: Ondansetron 4 MG/2 ML SDV IVPUSH PRN ×2 (11:30→19:15)
[2022-12-03] MEDS: Citalopram 20 MG Tab PO SCH (20:23)
[2022-12-04] MEDS: Acetaminophen 325 MG Tab PO SCH ×4 (03:34→21:14)
[2022-12-04] MEDS: LORazepam 1 MG Tab PO PRN ×3 (03:35→21:14)
[2022-12-04] MEDS: Hyoscyamine 0.125 MG Tab.SL SL PRN ×3 (03:35→23:16)
[2022-12-04] MEDS: Magnesium Sulfate/Water 2 GM in Premix Bag 1 BAG IV SCH ×4 (04:43→22:55)
[2022-12-04] MEDS: Cyclobenzaprine 10 MG Tab PO PRN ×2 (05:48→16:12)
[2022-12-04] MEDS: Ondansetron 4 MG/2 ML SDV IVPUSH PRN ×2 (05:48→16:20)
[2022-12-04] MEDS: busPIRone 10 MG Tab PO SCH ×4 (07:50→21:14)
[2022-12-04] MEDS: Pantoprazole 40 MG Tab.CR PO SCH (07:50)
[2022-12-04] MEDS: VERIFY SCOP PATCH TOP SCH ×2 (07:52→10:06)
[2022-12-04] MEDS: HYDROmorphone/Normal Saline 6 MG/30 ML PCA Vial IV PRN ×3 (08:18→22:56)
[2022-12-04] MEDS ORDERED: MVI, Adult with Vitamin K 10 ML, Zinc/Copper/Manganese/Selenium 1 ML, Thiamine 200 MG i... IV ONE ×4 (09:00)
[2022-12-04] MEDS ORDERED: Cyanocobalamin (Vitamin B12) 1,000 MCG/ML SDV IM ONE (09:00)
[2022-12-04] MEDS: hydrOXYzine HCl 25 MG Tab PO PRN ×2 (16:12→23:16)
[2022-12-04] MEDS: Citalopram 20 MG Tab PO SCH (21:14)
[2022-12-04] MEDS: D5 1/2 NS w/ 20 mEq/L KCl 1,000 ML IV SCH (22:57)
[2022-12-05] MEDS: Acetaminophen 325 MG Tab PO SCH ×5 (02:55→21:03)
[2022-12-05] MEDS: Cyclobenzaprine 10 MG Tab PO PRN ×2 (04:49→13:44)
[2022-12-05] MEDS: LORazepam 1 MG Tab PO PRN ×3 (04:49→17:58)
[2022-12-05] MEDS: Ondansetron 4 MG/2 ML SDV IVPUSH PRN ×3 (04:50→13:44)
[2022-12-05] MEDS: Magnesium Sulfate/Water 2 GM in Premix Bag 1 BAG IV SCH (04:52)
[2022-12-05] MEDS: Scopolamine 1.5 MG Transdermal Patch TRDERM SCH (05:04)
[2022-12-05] MEDS: busPIRone 10 MG Tab PO SCH ×3 (08:24→21:03)
[2022-12-05] MEDS: Pantoprazole 40 MG Tab.CR PO SCH (08:24)
[2022-12-05] MEDS: VERIFY SCOP PATCH TOP SCH (08:31)
[2022-12-05] MEDS: hydrOXYzine HCl 25 MG Tab PO PRN ×2 (08:34→16:07)
[2022-12-05] MEDS: HYDROmorphone/Normal Saline 6 MG/30 ML PCA Vial IV PRN ×2 (09:09→18:33)
[2022-12-05] MEDS: Hyoscyamine 0.125 MG Tab.SL SL PRN ×2 (11:13→17:58)
[2022-12-05] MEDS: D5 1/2 NS w/ 20 mEq/L KCl 1,000 ML IV SCH (11:15)
[2022-12-05] MEDS: ARIPiprazole 10 MG Tab PO SCH (13:44)
[2022-12-05] MEDS: Citalopram 20 MG Tab PO SCH (21:03)
[2022-12-06] MEDS: D5 1/2 NS w/ 20 mEq/L KCl 1,000 ML IV SCH ×2 (00:08→13:27)
[2022-12-06] MEDS: LORazepam 1 MG Tab PO PRN ×4 (00:56→21:55)
[2022-12-06] MEDS: Acetaminophen 325 MG Tab PO SCH ×5 (02:50→19:56)
[2022-12-06] MEDS ORDERED: Docusate Sodium 100 MG Cap PO PRN (08:06)
[2022-12-06] MEDS ORDERED: D5 1/2 NS w/ 20 mEq/L KCl 1,000 ML IV SCH (08:30)
[2022-12-06] MEDS: Pantoprazole 40 MG Tab.CR PO SCH (08:42)
[2022-12-06] MEDS: ARIPiprazole 10 MG Tab PO SCH (08:43)
[2022-12-06] MEDS: busPIRone 10 MG Tab PO SCH ×3 (08:43→21:55)
[2022-12-06] MEDS: Bisacodyl 5 MG Tab PO SCH ×2 (08:43→21:55)
[2022-12-06 08:44] LABS: BASOPHILS ABSOLUTE AUTO 0.04 K/uL (0.00-0.10); BASOPHILS PERCENT AUTO 0.4 % (0.1-1.3); EOSINOPHILS ABSOLUTE AUTO 0.41 K/uL (0.00-0.40); EOSINOPHILS PERCENT AUTO 3.7 % (0.0-5.4); HEMATOCRIT 24.7 % (34.3-46.0); HEMOGLOBIN 8.1 g/dL (11.2-15.5); IMMATURE GRAN ABSOLUTE AUTO 0.06 K/uL (0.00-0.23); IMMATURE GRAN PERCENT AUTO 0.5 % (0.0-0.7); LYMPHOCYTES ABSOLUTE AUTO 1.55 K/uL (0.8-3.3); MEAN CORPUSCULAR HGB CONC 32.8 g/dL (31.6-35.5); MEAN CORPUSCULAR VOLUME 94.6 fL (81.4-99.0); MONOCYTES ABSOLUTE AUTO 0.77 K/uL (0.20-0.90); MONOCYTES PERCENT AUTO 6.9 % (3.3-12.6); NEUTROPHILS ABSOLUTE AUTO 8.26 K/uL (1.0-7.6); NEUTROPHILS PERCENT AUTO 74.5 % (40.0-78.1); PLATELET COUNT,PLT 394 K/uL (130-375); RED BLOOD CELL COUNT 2.61 M/uL (3.77-5.24); WHITE BLOOD CELL COUNT,WBC 11.1 K/uL (3.2-11.0)
[2022-12-06] MEDS: VERIFY SCOP PATCH TOP SCH (08:44)
[2022-12-06] MEDS: Hyoscyamine 0.125 MG Tab.SL SL PRN ×2 (08:50→16:18)
[2022-12-06 09:05] LABS: A/G RATIO 0.6 (1.2-2.2); ALANINE AMINOTRANSFERASE,ALT 41 U/L (12-78); ALKALINE PHOSPHATASE 85 U/L (46-116); ASPARTATE AMNIOTRANSFERASE,AST 38 U/L (15-37); BILIRUBIN TOTAL 0.3 mg/dL (0.2-1.0); BLOOD UREA NITROGEN,BUN 8 mg/dL (7-18); CALCIUM 8.1 mg/dL (8.5-10.1); CARBON DIOXIDE,CO2 28 mmol/L (21-32); CHLORIDE,CL 104 mmol/L (100-108); CREATININE 0.5 mg/dL (0.6-1.0); EST CRCL DRUG DOSING (CG) 116.36 mL/min; ESTIMATED GFR 113 mL/min (>60); GLUCOSE RANDOM 149 mg/dL (74-106); MAGNESIUM 1.4 mg/dL (1.8-2.4); PHOSPHORUS 3.3 mg/dL (2.5-4.9); POTASSIUM,K 4.3 mmol/L (3.6-5.2); PROTEIN TOTAL,TP 5.3 g/dL (6.4-8.2); SODIUM,NA 137 mmol/L (140-148)
[2022-12-06] MEDS: HYDROmorphone/Normal Saline 6 MG/30 ML PCA Vial IV PRN ×2 (09:42→18:05)
[2022-12-06 09:59] LABS: ANION GAP 9.3 mmol/L (5.0-14.0)
[2022-12-06 12:22] LABS: APPEARANCE,URINE CLEAR (CLEAR); BILIRUBIN,URINE NEGATIVE (NEGATIVE); COLOR,URINE YELLOW (YELLOW); GLUCOSE,URINE NEGATIVE (NEGATIVE); KETONES,URINE NEGATIVE (NEGATIVE); LEUKOCYTE ESTERASE,URINE NEGATIVE (NEGATIVE); NITRITE,URINE NEGATIVE (NEGATIVE); OCCULT BLOOD,URINE NEGATIVE (NEGATIVE); PROTEIN,URINE NEGATIVE (NEGATIVE)
[2022-12-06 12:26] LABS: AMORPHOUS SEDIMENT,URINE NOT SEEN; BACTERIA,URINE FEW; EPITHELIAL CELLS,URINE FEW; MUCUS,URINE NOT SEEN; RBC,URINE NOT SEEN (0-5); WBC,URINE 0-5 (0-5)
[2022-12-06] MEDS: Ondansetron 4 MG/2 ML SDV IVPUSH PRN (13:18)
[2022-12-06] MEDS: Magnesium Sulfate/Water 2 GM in Premix Bag 1 BAG IV SCH ×2 (15:04→19:56)
[2022-12-06] MEDS ORDERED: Magnesium Sulfate/Water 2 GM/50 ML BAG IV SCH (15:45)
[2022-12-06] MEDS: Cyclobenzaprine 10 MG Tab PO PRN (20:07)
[2022-12-06] MEDS: hydrOXYzine HCl 25 MG Tab PO PRN (20:07)
[2022-12-06] MEDS: Citalopram 20 MG Tab PO SCH (21:55)
[2022-12-07] MEDS: Hyoscyamine 0.125 MG Tab.SL SL PRN ×3 (02:25→18:43)
[2022-12-07] MEDS: Acetaminophen 325 MG Tab PO SCH ×4 (02:25→20:46)
[2022-12-07] MEDS: Magnesium Sulfate/Water 2 GM in Premix Bag 1 BAG IV SCH ×4 (02:26→20:44)
[2022-12-07 04:33] LABS: HEMOGLOBIN 8.2 g/dL (11.2-15.5); MEAN CORPUSCULAR HEMOGLOBIN 31.3 pg (31.6-35.5); MEAN CORPUSCULAR HGB CONC 32.8 g/dL (31.6-35.5); MEAN CORPUSCULAR VOLUME 95.4 fL (81.4-99.0); RED BLOOD CELL COUNT 2.62 M/uL (3.77-5.24); WHITE BLOOD CELL COUNT,WBC 8.3 K/uL (3.2-11.0)
[2022-12-07 04:55] LABS: A/G RATIO 0.5 (1.2-2.2); ALANINE AMINOTRANSFERASE,ALT 40 U/L (12-78); ALBUMIN 1.9 g/dL (3.4-5.0); ALKALINE PHOSPHATASE 92 U/L (46-116); ASPARTATE AMNIOTRANSFERASE,AST 37 U/L (15-37); BILIRUBIN TOTAL 0.2 mg/dL (0.2-1.0); BLOOD UREA NITROGEN,BUN 9 mg/dL (7-18); CALCIUM 8.3 mg/dL (8.5-10.1); CARBON DIOXIDE,CO2 29 mmol/L (21-32); CHLORIDE,CL 106 mmol/L (100-108); CREATININE 0.4 mg/dL (0.6-1.0); EST CRCL DRUG DOSING (CG) 145.45 mL/min; ESTIMATED GFR 119 mL/min (>60); GLUCOSE RANDOM 127 mg/dL (74-106); PHOSPHORUS 4.2 mg/dL (2.5-4.9); POTASSIUM,K 4.2 mmol/L (3.6-5.2); PROTEIN TOTAL,TP 5.4 g/dL (6.4-8.2); SODIUM,NA 140 mmol/L (140-148)
[2022-12-07] MEDS: LORazepam 1 MG Tab PO PRN ×3 (05:29→18:42)
[2022-12-07] MEDS: HYDROmorphone/Normal Saline 6 MG/30 ML PCA Vial IV PRN ×2 (07:20→16:50)
[2022-12-07] MEDS: Pantoprazole 40 MG Tab.CR PO SCH (07:21)
[2022-12-07] MEDS: Ondansetron 4 MG/2 ML SDV IVPUSH PRN ×2 (07:34→20:40)
[2022-12-07] MEDS: hydrOXYzine HCl 25 MG Tab PO PRN ×2 (07:34→14:08)
[2022-12-07] MEDS: Cyclobenzaprine 10 MG Tab PO PRN ×2 (07:34→18:43)
[2022-12-07] MEDS: Bisacodyl 5 MG Tab PO SCH ×2 (08:28→20:48)
[2022-12-07] MEDS: ARIPiprazole 10 MG Tab PO SCH (08:29)
[2022-12-07] MEDS: busPIRone 10 MG Tab PO SCH ×3 (08:29→20:47)
[2022-12-07] MEDS ORDERED: Furosemide 20 MG/2 ML VIAL IVPUSH ONE (09:00)
[2022-12-07] MEDS: VERIFY SCOP PATCH TOP SCH (14:19)
[2022-12-07] MEDS: Citalopram 20 MG Tab PO SCH (20:47)
[2022-12-08] MEDS: Acetaminophen 325 MG Tab PO SCH ×4 (02:22→20:21)
[2022-12-08] MEDS: Magnesium Sulfate/Water 2 GM in Premix Bag 1 BAG IV SCH ×4 (02:25→20:21)
[2022-12-08] MEDS: HYDROmorphone/Normal Saline 6 MG/30 ML PCA Vial IV PRN ×3 (03:04→16:24)
[2022-12-08 04:56] LABS: HEMATOCRIT 24.9 % (34.3-46.0); HEMOGLOBIN 8.2 g/dL (11.2-15.5); MEAN CORPUSCULAR HEMOGLOBIN 31.2 pg (31.6-35.5); MEAN CORPUSCULAR HGB CONC 32.9 g/dL (31.6-35.5); MEAN CORPUSCULAR VOLUME 94.7 fL (81.4-99.0); RED BLOOD CELL COUNT 2.63 M/uL (3.77-5.24); WHITE BLOOD CELL COUNT,WBC 6.1 K/uL (3.2-11.0)
[2022-12-08 05:27] LABS: A/G RATIO 0.6 (1.2-2.2); ALANINE AMINOTRANSFERASE,ALT 187 U/L (12-78); ALKALINE PHOSPHATASE 145 U/L (46-116); ASPARTATE AMNIOTRANSFERASE,AST 140 U/L (15-37); BILIRUBIN TOTAL 0.1 mg/dL (0.2-1.0); BLOOD UREA NITROGEN,BUN 12 mg/dL (7-18); CALCIUM 8.2 mg/dL (8.5-10.1); CARBON DIOXIDE,CO2 31 mmol/L (21-32); CHLORIDE,CL 103 mmol/L (100-108); CREATININE 0.5 mg/dL (0.6-1.0); EST CRCL DRUG DOSING (CG) 116.36 mL/min; ESTIMATED GFR 113 mL/min (>60); GLUCOSE RANDOM 110 mg/dL (74-106); MAGNESIUM 2.7 mg/dL (1.8-2.4); POTASSIUM,K 4.1 mmol/L (3.6-5.2); PROTEIN TOTAL,TP 5.3 g/dL (6.4-8.2); SODIUM,NA 139 mmol/L (140-148)
[2022-12-08 05:28] LABS: ANION GAP 9.1 mmol/L (5.0-14.0)
[2022-12-08] MEDS: LORazepam 1 MG Tab PO PRN ×3 (05:44→20:28)
[2022-12-08] MEDS: Cyclobenzaprine 10 MG Tab PO PRN ×2 (06:03→14:45)
[2022-12-08] MEDS: Ondansetron 4 MG/2 ML SDV IVPUSH PRN ×2 (06:06→20:29)
[2022-12-08] MEDS: Scopolamine 1.5 MG Transdermal Patch TRDERM SCH (08:05)
[2022-12-08] MEDS: Pantoprazole 40 MG Tab.CR PO SCH (08:07)
[2022-12-08] MEDS: Bisacodyl 5 MG Tab PO SCH ×2 (10:31→20:23)
[2022-12-08] MEDS: Lidocaine 4% Crm 5 GM Tube TOP SCH ×4 (10:32→20:22)
[2022-12-08] MEDS: ARIPiprazole 10 MG Tab PO SCH (10:32)
[2022-12-08] MEDS: busPIRone 10 MG Tab PO SCH ×3 (10:33→20:22)
[2022-12-08] MEDS: VERIFY SCOP PATCH TOP SCH (10:33)
[2022-12-08] MEDS: Citalopram 20 MG Tab PO SCH (20:22)
[2022-12-08] MEDS: hydrOXYzine HCl 25 MG Tab PO PRN (20:28)
[2022-12-09] MEDS: Lidocaine 4% Crm 5 GM Tube TOP SCH ×7 (02:50→23:39)
[2022-12-09] MEDS: Acetaminophen 325 MG Tab PO SCH ×4 (02:51→20:53)
[2022-12-09] MEDS: Magnesium Sulfate/Water 2 GM in Premix Bag 1 BAG IV SCH ×2 (02:51→10:15)
[2022-12-09] MEDS: Cyclobenzaprine 10 MG Tab PO PRN ×2 (04:58→14:15)
[2022-12-09] MEDS: LORazepam 1 MG Tab PO PRN ×3 (04:58→23:38)
[2022-12-09] MEDS: HYDROmorphone/Normal Saline 6 MG/30 ML PCA Vial IV PRN ×3 (05:34→23:32)
[2022-12-09] MEDS ORDERED: fentaNYL 50 MCG/ML SDV ONE (06:46)
[2022-12-09] MEDS ORDERED: Propofol 200 MG/20 ML SDV ONE (06:46)
[2022-12-09] MEDS ORDERED: Midazolam 1 MG/ML 2 ML SDV ONE (06:46)
[2022-12-09] MEDS ORDERED: Glycopyrrolate 0.2 MG/ML 2 ML SDV IVPUSH ONE (07:30)
[2022-12-09] MEDS ORDERED: Lactated Ringers 1,000 ML ONE (08:52)
[2022-12-09] MEDS ORDERED: Naloxone 0.4 MG/ML SDV IVPUSH PRN (10:06)
[2022-12-09] MEDS: Pantoprazole 40 MG Tab.CR PO SCH ×3 (10:15→20:54)
[2022-12-09] MEDS: busPIRone 10 MG Tab PO SCH ×3 (10:16→20:54)
[2022-12-09] MEDS: ARIPiprazole 10 MG Tab PO SCH (10:16)
[2022-12-09] MEDS: Bisacodyl 5 MG Tab PO SCH ×2 (10:16→20:38)
[2022-12-09] MEDS: VERIFY SCOP PATCH TOP SCH (10:16)
[2022-12-09] MEDS: Ondansetron 4 MG/2 ML SDV IVPUSH PRN ×3 (11:07→20:57)
[2022-12-09] MEDS: hydrOXYzine HCl 25 MG Tab PO PRN ×2 (14:15→20:53)
[2022-12-09] MEDS: Hyoscyamine 0.125 MG Tab.SL SL PRN (15:10)
[2022-12-09] MEDS: Citalopram 20 MG Tab PO SCH (20:54)
[2022-12-09] MEDS: D5 1/2 NS w/ 20 mEq/L KCl 1,000 ML IV SCH (20:56)
[2022-12-10] MEDS: Acetaminophen 325 MG Tab PO SCH ×4 (04:06→20:18)
[2022-12-10] MEDS: Lidocaine 4% Crm 5 GM Tube TOP SCH ×5 (04:06→20:19)
[2022-12-10] MEDS: hydrOXYzine HCl 25 MG Tab PO PRN ×3 (04:32→22:18)
[2022-12-10 04:38] LABS: BASOPHILS ABSOLUTE AUTO 0.03 K/uL (0.00-0.10); BASOPHILS PERCENT AUTO 0.4 % (0.1-1.3); EOSINOPHILS ABSOLUTE AUTO 0.51 K/uL (0.00-0.40); EOSINOPHILS PERCENT AUTO 7.6 % (0.0-5.4); HEMATOCRIT 26.4 % (34.3-46.0); HEMOGLOBIN 8.5 g/dL (11.2-15.5); IMMATURE GRAN ABSOLUTE AUTO 0.04 K/uL (0.00-0.23); IMMATURE GRAN PERCENT AUTO 0.6 % (0.0-0.7); LYMPHOCYTES ABSOLUTE AUTO 1.86 K/uL (0.8-3.3); LYMPHOCYTES PERCENT AUTO 27.8 % (11.4-47.7); MEAN CORPUSCULAR HEMOGLOBIN 30.7 pg (31.6-35.5); MEAN CORPUSCULAR HGB CONC 32.2 g/dL (31.6-35.5); MEAN CORPUSCULAR VOLUME 95.3 fL (81.4-99.0); MONOCYTES ABSOLUTE AUTO 0.84 K/uL (0.20-0.90); MONOCYTES PERCENT AUTO 12.6 % (3.3-12.6); PLATELET COUNT,PLT 558 K/uL (130-375); RED BLOOD CELL COUNT 2.77 M/uL (3.77-5.24); WHITE BLOOD CELL COUNT,WBC 6.7 K/uL (3.2-11.0)
[2022-12-10 04:54] LABS: A/G RATIO 0.6 (1.2-2.2); ALANINE AMINOTRANSFERASE,ALT 153 U/L (12-78); ALKALINE PHOSPHATASE 181 U/L (46-116); ANION GAP 6.9 mmol/L (5.0-14.0); ASPARTATE AMNIOTRANSFERASE,AST 50 U/L (15-37); BILIRUBIN TOTAL 0.1 mg/dL (0.2-1.0); BLOOD UREA NITROGEN,BUN 14 mg/dL (7-18); CARBON DIOXIDE,CO2 29 mmol/L (21-32); CHLORIDE,CL 104 mmol/L (100-108); CREATININE 0.4 mg/dL (0.6-1.0); EST CRCL DRUG DOSING (CG) 145.45 mL/min; ESTIMATED GFR 119 mL/min (>60); GLUCOSE RANDOM 115 mg/dL (74-106); MAGNESIUM 1.6 mg/dL (1.8-2.4); PHOSPHORUS 3.8 mg/dL (2.5-4.9); POTASSIUM,K 4.1 mmol/L (3.6-5.2); PROTEIN TOTAL,TP 5.3 g/dL (6.4-8.2); SODIUM,NA 140 mmol/L (140-148)
[2022-12-10] MEDS: Cyclobenzaprine 10 MG Tab PO PRN ×2 (07:47→17:24)
[2022-12-10] MEDS: Ondansetron 4 MG/2 ML SDV IVPUSH PRN ×2 (07:47→22:18)
[2022-12-10] MEDS: Hyoscyamine 0.125 MG Tab.SL SL PRN ×2 (07:47→17:27)
[2022-12-10] MEDS: LORazepam 1 MG Tab PO PRN ×3 (07:47→20:14)
[2022-12-10] MEDS: Bisacodyl 5 MG Tab PO SCH ×2 (08:53→20:17)
[2022-12-10] MEDS: Pantoprazole 40 MG Tab.CR PO SCH ×2 (08:53→20:18)
[2022-12-10] MEDS: ARIPiprazole 10 MG Tab PO SCH (08:53)
[2022-12-10] MEDS: busPIRone 10 MG Tab PO SCH ×3 (08:53→20:18)
[2022-12-10] MEDS: VERIFY SCOP PATCH TOP SCH (08:54)
[2022-12-10] MEDS ORDERED: Magnesium Oxide 400 MG Tab GTUBE SCH (09:00)
[2022-12-10] MEDS ORDERED: Magnesium Sulfate (4.06 MEQ/ML) 1 GM/2 ML SDV SCH (09:00)
[2022-12-10] MEDS: Celecoxib 200 MG Cap PO SCH ×2 (10:07→20:17)
[2022-12-10] MEDS: Magnesium Sulfate (4.06 MEQ/ML) 1 GM/2 ML SDV SCH ×3 (10:08→20:17)
[2022-12-10] MEDS ORDERED: Ondansetron 4 MG/2 ML SDV IVPUSH PRN (10:31)
[2022-12-10] MEDS ORDERED: diphenhydrAMINE 25 MG Cap PO PRN (10:31)
[2022-12-10] MEDS ORDERED: diphenhydrAMINE 50 MG/ML SDV IVPUSH PRN (10:31)
[2022-12-10] MEDS ORDERED: Naloxone 0.4 MG/ML SDV IVPUSH PRN (10:31)
[2022-12-10] MEDS ORDERED: HYDROmorphone/Normal Saline 6 MG/30 ML PCA Vial IV PRN (10:31)
[2022-12-10] MEDS: FLUoxetine 10 MG Cap PO SCH (14:09)
[2022-12-10] MEDS: Citalopram 20 MG Tab PO SCH (20:17)
[2022-12-10] MEDS: QUEtiapine 25 MG Tab PO SCH (20:19)
[2022-12-10] MEDS ORDERED: Sodium Chloride 0.9% 1,000 ML IV SCH (22:30)
[2022-12-11] MEDS: Lidocaine 4% Crm 5 GM Tube TOP SCH ×6 (02:50→20:45)
[2022-12-11] MEDS: Cyclobenzaprine 10 MG Tab PO PRN ×3 (04:31→20:50)
[2022-12-11] MEDS: Acetaminophen 325 MG Tab PO SCH ×4 (04:32→19:32)
[2022-12-11] MEDS: LORazepam 1 MG Tab PO PRN (04:32)
[2022-12-11] MEDS: Scopolamine 1.5 MG Transdermal Patch TRDERM SCH (06:31)
[2022-12-11] MEDS: hydrOXYzine HCl 25 MG Tab PO PRN ×3 (07:31→19:36)
[2022-12-11] MEDS: Ondansetron 4 MG/2 ML SDV IVPUSH PRN ×2 (07:32→19:28)
[2022-12-11] MEDS: Hyoscyamine 0.125 MG Tab.SL SL PRN ×3 (07:32→20:50)
[2022-12-11] MEDS: busPIRone 10 MG Tab PO SCH (08:30)
[2022-12-11] MEDS: ARIPiprazole 10 MG Tab PO SCH (08:30)
[2022-12-11] MEDS: FLUoxetine 10 MG Cap PO SCH (08:30)
[2022-12-11] MEDS: Magnesium Sulfate (4.06 MEQ/ML) 1 GM/2 ML SDV SCH ×3 (08:31→20:45)
[2022-12-11] MEDS: Celecoxib 200 MG Cap PO SCH ×2 (08:31→20:45)
[2022-12-11] MEDS: Bisacodyl 5 MG Tab PO SCH ×2 (08:31→20:46)
[2022-12-11] MEDS: VERIFY SCOP PATCH TOP SCH (08:31)
[2022-12-11] MEDS: Pantoprazole 40 MG Tab.CR PO SCH ×2 (08:31→20:46)
[2022-12-11] MEDS: LORazepam 0.5 MG Tab PO PRN ×2 (11:29→22:22)
[2022-12-11] MEDS: Acetaminophen/Codeine 300-30 MG Tab PO PRN ×3 (11:29→23:18)
[2022-12-11] MEDS: QUEtiapine 25 MG Tab PO SCH (20:47)
[2022-12-12] MEDS ORDERED: diphenhydrAMINE 50 MG/ML SDV IVPUSH ONE (00:05)
[2022-12-12] MEDS: Lidocaine 4% Crm 5 GM Tube TOP SCH ×7 (00:14→23:23)
[2022-12-12] MEDS: Acetaminophen 325 MG Tab PO SCH ×2 (01:28→07:31)
[2022-12-12] MEDS: hydrOXYzine HCl 25 MG Tab PO PRN ×4 (01:28→19:24)
[2022-12-12 04:29] LABS: HEMATOCRIT 27.8 % (34.3-46.0); HEMOGLOBIN 9.2 g/dL (11.2-15.5); MEAN CORPUSCULAR HGB CONC 33.1 g/dL (31.6-35.5); MEAN CORPUSCULAR VOLUME 93.6 fL (81.4-99.0); RED BLOOD CELL COUNT 2.97 M/uL (3.77-5.24); WHITE BLOOD CELL COUNT,WBC 8.9 K/uL (3.2-11.0)
[2022-12-12 04:46] LABS: A/G RATIO 0.9 (1.2-2.2); ALANINE AMINOTRANSFERASE,ALT 98 U/L (12-78); ALBUMIN 3.1 g/dL (3.4-5.0); ALKALINE PHOSPHATASE 150 U/L (46-116); ASPARTATE AMNIOTRANSFERASE,AST 32 U/L (15-37); BILIRUBIN TOTAL 0.2 mg/dL (0.2-1.0); BLOOD UREA NITROGEN,BUN 15 mg/dL (7-18); CALCIUM 8.7 mg/dL (8.5-10.1); CARBON DIOXIDE,CO2 27 mmol/L (21-32); CHLORIDE,CL 104 mmol/L (100-108); CREATININE 0.5 mg/dL (0.6-1.0); EST CRCL DRUG DOSING (CG) 116.36 mL/min; ESTIMATED GFR 113 mL/min (>60); GLUCOSE RANDOM 108 mg/dL (74-106); MAGNESIUM 1.9 mg/dL (1.8-2.4); PHOSPHORUS 2.9 mg/dL (2.5-4.9); POTASSIUM,K 3.9 mmol/L (3.6-5.2); PROTEIN TOTAL,TP 6.7 g/dL (6.4-8.2); SODIUM,NA 139 mmol/L (140-148)
[2022-12-12 04:52] LABS: ANION GAP 11.9 mmol/L (5.0-14.0)
[2022-12-12] MEDS: Acetaminophen/Codeine 300-30 MG Tab PO PRN ×3 (05:08→21:13)
[2022-12-12] MEDS: Cyclobenzaprine 10 MG Tab PO PRN ×2 (05:08→13:27)
[2022-12-12] MEDS: Hyoscyamine 0.125 MG Tab.SL SL PRN ×3 (07:32→19:24)
[2022-12-12] MEDS: LORazepam 0.5 MG Tab PO PRN ×2 (07:32→21:13)
[2022-12-12] MEDS ORDERED: diphenhydrAMINE 50 MG/ML SDV IVPUSH PRN (07:43)
[2022-12-12 08:10] LABS: APPEARANCE,URINE CLEAR (CLEAR); BILIRUBIN,URINE NEGATIVE (NEGATIVE); COLOR,URINE YELLOW (YELLOW); GLUCOSE,URINE NEGATIVE (NEGATIVE); KETONES,URINE NEGATIVE (NEGATIVE); LEUKOCYTE ESTERASE,URINE NEGATIVE (NEGATIVE); NITRITE,URINE NEGATIVE (NEGATIVE); OCCULT BLOOD,URINE NEGATIVE (NEGATIVE); PH,URINE 8.5 (5.0-8.0); PROTEIN,URINE NEGATIVE (NEGATIVE)
[2022-12-12 08:22] LABS: AMORPHOUS SEDIMENT,URINE RARE; BACTERIA,URINE NOT SEEN; EPITHELIAL CELLS,URINE NOT SEEN; MUCUS,URINE NOT SEEN; RBC,URINE NOT SEEN (0-5); WBC,URINE 0-5 (0-5)
[2022-12-12] MEDS: Celecoxib 200 MG Cap PO SCH ×2 (09:12→21:13)
[2022-12-12] MEDS: Bisacodyl 5 MG Tab PO SCH ×2 (09:12→21:13)
[2022-12-12] MEDS: Magnesium Sulfate (4.06 MEQ/ML) 1 GM/2 ML SDV SCH ×3 (09:13→21:42)
[2022-12-12] MEDS: FLUoxetine 10 MG Cap PO SCH (09:13)
[2022-12-12] MEDS: Pantoprazole 40 MG Tab.CR PO SCH ×2 (09:13→21:14)
[2022-12-12] MEDS: VERIFY SCOP PATCH TOP SCH (09:14)
[2022-12-12] MEDS ORDERED: Acetaminophen/Codeine 300-30 MG Tab PO PRN (10:20)
[2022-12-12] MEDS: QUEtiapine 25 MG Tab PO SCH (21:14)
[2022-12-13] MEDS: Hyoscyamine 0.125 MG Tab.SL SL PRN ×2 (01:24→07:58)
[2022-12-13] MEDS: hydrOXYzine HCl 25 MG Tab PO PRN ×2 (01:24→07:58)
[2022-12-13] MEDS: Acetaminophen/Codeine 300-30 MG Tab PO PRN ×2 (03:22→09:42)
[2022-12-13] MEDS: Lidocaine 4% Crm 5 GM Tube TOP SCH ×4 (03:28→13:18)
[2022-12-13] MEDS: Cyclobenzaprine 10 MG Tab PO PRN (05:32)
[2022-12-13] MEDS: LORazepam 0.5 MG Tab PO PRN (07:58)
[2022-12-13] MEDS: FLUoxetine 10 MG Cap PO SCH (07:59)
[2022-12-13] MEDS: Pantoprazole 40 MG Tab.CR PO SCH (07:59)
[2022-12-13] MEDS: VERIFY SCOP PATCH TOP SCH (08:00)
[2022-12-13] MEDS: Celecoxib 200 MG Cap PO SCH (08:00)
[2022-12-13] MEDS: Bisacodyl 5 MG Tab PO SCH (08:02)
[2022-12-13 08:10] VITALS: BP 99/71; PULSE 82
[2022-12-13] MEDS: Magnesium Sulfate (4.06 MEQ/ML) 1 GM/2 ML SDV SCH (09:31)
== END 2022-12-13 13:59 | disposition home or self-care (01) | DRG 222 ==
LOC: JP.SDS 05:31 → JP.MS 08:30 → UNDOADMIN 09:35 → UNDODISIN 12-13 13:59
PROVIDERS: ADMIT Surgery; ATTEND Surgery
PROC: 0DH60UZ Insertion of Feeding Device into Stomach, Open Approach (ICD-10-PCS; principal; 2022-12-02)
PROC: 0D758ZZ Dilation of Esophagus, Via Natural or Artificial Opening Endoscopic (ICD-10-PCS; 2022-12-02)
PROC: 0D7A8ZZ Dilation of Jejunum, Via Natural or Artificial Opening Endoscopic (ICD-10-PCS; 2022-12-02)
PROC: 0DC58ZZ Extirpation of Matter from Esophagus, Via Natural or Artificial Opening Endoscopic (ICD-10-PCS; 2022-12-02)
DX: Z43.1 Encounter for attention to gastrostomy (principal); E46 Unspecified protein-calorie malnutrition; F11.20 Opioid dependence, uncomplicated; F41.9 Anxiety disorder, unspecified; G47.00 Insomnia, unspecified; K21.9 Gastro-esophageal reflux disease without esophagitis; K94.23 Gastrostomy malfunction; T18.128A Food in esophagus causing other injury, initial encounter; F32.0 Major depressive disorder, single episode, mild; I10 Essential (primary) hypertension; K22.2 Esophageal obstruction; Z79.899 Other long term (current) drug therapy; Z90.49 Acquired absence of other specified parts of digestive tract; Z90.711 Acquired absence of uterus with remaining cervical stump; Z90.721 Acquired absence of ovaries, unilateral; Z98.890 Other specified postprocedural states; Z87.891 Personal history of nicotine dependence; Z99.81 Dependence on supplemental oxygen; Z68.31 Body mass index [BMI] 31.0-31.9, adult
CPT/HCPCS: 36415; 71046; 71046-26; 73030-LT; 73060-LT; 80053; 81001; 82607; 82728; 83735; 84100; 85025; 85027; A9270-GY; C1726; C9113; J0131; J0171; J0690; J1100; J1170; J1200; J1940; J2185; J2250; J2405; J2704; J2710; J2795; J3010; J3410; J3411; J3420; J3475; J3480; J3490; J7120; J7121; P9047

== ENCOUNTER 2022-12-26 05:46 | Day surgery (SDC) | payer BC ==
[2022-12-26] MEDS ORDERED: Cyanocobalamin (Vitamin B12) 1,000 MCG/ML SDV IM ONE (06:00)
[2022-12-26] MEDS ORDERED: Propofol 200 MG/20 ML SDV ONE (06:53)
[2022-12-26] MEDS ORDERED: Midazolam 1 MG/ML 2 ML SDV ONE (06:53)
[2022-12-26] MEDS ORDERED: fentaNYL 50 MCG/ML SDV ONE (06:53)
[2022-12-26] MEDS ORDERED: Lactated Ringers 1,000 ML IV SCH (07:00)
[2022-12-26] MEDS ORDERED: Glycopyrrolate 0.2 MG/ML 2 ML SDV IVPUSH ONE (07:15)
[2022-12-26] MEDS ORDERED: MVI, Adult with Vitamin K 10 ML, Thiamine 200 MG, Zinc/Copper/Manganese/Selenium 1 ML i... IV ONE ×4 (08:30)
[2022-12-26 08:36] VITALS: BP 100/66; PULSE 89
== END 2022-12-26 08:45 | disposition home or self-care (01) ==
LOC: JP.SDS 05:46
PROVIDERS: ATTEND Surgery
DX: T18.128A Food in esophagus causing other injury, initial encounter (principal); K22.2 Esophageal obstruction; Z98.0 Intestinal bypass and anastomosis status
CPT/HCPCS: 43247; 43249; C1726; J1642; J2250; J2704; J3010; J3411; J3420; J3490; J7120

== ENCOUNTER 2023-01-06 05:52 | Day surgery (SDC) | payer BC ==
[2023-01-06] MEDS ORDERED: MVI, Adult with Vitamin K 10 ML, Thiamine 200 MG, Zinc/Copper/Manganese/Selenium 1 ML i... IV ONE ×4 (06:30)
[2023-01-06 06:41] LABS: HEMOGLOBIN 10.3 g/dL (11.2-15.5); MEAN CORPUSCULAR HEMOGLOBIN 31.7 pg (31.6-35.5); MEAN CORPUSCULAR HGB CONC 34.3 g/dL (31.6-35.5); MEAN CORPUSCULAR VOLUME 92.3 fL (81.4-99.0); RED BLOOD CELL COUNT 3.25 M/uL (3.77-5.24); WHITE BLOOD CELL COUNT,WBC 13.6 K/uL (3.2-11.0)
[2023-01-06 07:07] LABS: A/G RATIO 1.1 (1.2-2.2); ALBUMIN 3.6 g/dL (3.4-5.0); ALKALINE PHOSPHATASE 495 U/L (46-116); ASPARTATE AMNIOTRANSFERASE,AST 650 U/L (15-37); BILIRUBIN TOTAL 1.1 mg/dL (0.2-1.0); BLOOD UREA NITROGEN,BUN 26 mg/dL (7-18); CALCIUM 9.1 mg/dL (8.5-10.1); CARBON DIOXIDE,CO2 24 mmol/L (21-32); CHLORIDE,CL 101 mmol/L (100-108); CREATININE 0.6 mg/dL (0.6-1.0); EST CRCL DRUG DOSING (CG) 94.71 mL/min; ESTIMATED GFR 108 mL/min (>60); GLUCOSE RANDOM 94 mg/dL (74-106); POTASSIUM,K 3.5 mmol/L (3.6-5.2); SODIUM,NA 138 mmol/L (140-148)
[2023-01-06 07:08] LABS: ALANINE AMINOTRANSFERASE,ALT 1183 U/L (12-78); ANION GAP 16.5 mmol/L (5.0-14.0)
[2023-01-06] MEDS ORDERED: Propofol 200 MG/20 ML SDV ONE ×2 (07:17→07:49)
[2023-01-06] MEDS ORDERED: Midazolam 1 MG/ML 2 ML SDV ONE (07:18)
[2023-01-06] MEDS ORDERED: fentaNYL 100 MCG/2 ML SDV ONE (07:18)
[2023-01-06] MEDS ORDERED: Silver Nitrate Applicator Each ONE (07:47)
[2023-01-06] MEDS ORDERED: Dexamethasone 4 MG/ML SDV ONE (07:49)
[2023-01-06] MEDS ORDERED: Lidocaine 1% with EPINEPHrine 1:100,000 50 ML MDV ONE (07:53)
[2023-01-06] MEDS ORDERED: Cyanocobalamin (Vitamin B12) 1,000 MCG/ML SDV IM ONE (08:00)
[2023-01-06] MEDS ORDERED: Linezolid 600 MG in Premix Bag 1 BAG IV ONE (09:00)
[2023-01-06 09:52] VITALS: BP 97/52; PULSE 97
== END 2023-01-06 09:55 | disposition home or self-care (01) ==
LOC: JP.SDS 05:52
PROVIDERS: ATTEND Surgery
DX: K22.2 Esophageal obstruction (principal); Z45.2 Encounter for adjustment and management of vascular access device; F41.9 Anxiety disorder, unspecified; F32.A Depression, unspecified
CPT/HCPCS: 36415; 36589; 43249; 80053; 85027; 87070; 87205; C1726; J1100; J2020; J2250; J2704; J3010; J3411; J3420; J7120; J3490

== ENCOUNTER 2023-01-20 06:48 | Day surgery (SDC) | payer BC ==
[2023-01-20] MEDS ORDERED: Cyanocobalamin (Vitamin B12) 1,000 MCG/ML SDV IM ONE (07:30)
[2023-01-20] MEDS ORDERED: Lactated Ringers 1,000 ML IV ONE (07:30)
[2023-01-20] MEDS ORDERED: Glycopyrrolate 0.2 MG/ML 2 ML SDV IVPUSH ONE (08:00)
[2023-01-20] MEDS ORDERED: fentaNYL 100 MCG/2 ML SDV ONE (08:27)
[2023-01-20] MEDS ORDERED: Propofol 200 MG/20 ML SDV ONE ×2 (08:27→08:58)
[2023-01-20] MEDS ORDERED: Midazolam 1 MG/ML 2 ML SDV ONE (08:28)
[2023-01-20] MEDS ORDERED: MVI, Adult with Vitamin K 10 ML, Thiamine 200 MG, Zinc/Copper/Manganese/Selenium 1 ML i... IV ONE ×4 (08:30)
[2023-01-20] MEDS ORDERED: Silver Nitrate Applicator Each ONE (08:35)
[2023-01-20] MEDS ORDERED: Bupivacaine 0.5% 50 ML MDV ONE (08:45)
[2023-01-20] MEDS ORDERED: Lidocaine 1% with EPINEPHrine 1:100,000 50 ML MDV ONE (08:45)
[2023-01-20] MEDS ORDERED: Dexamethasone 4 MG/ML SDV ONE (08:52)
[2023-01-20 10:33] VITALS: BP 101/65; PULSE 83
== END 2023-01-20 10:50 | disposition home or self-care (01) ==
LOC: JP.SDS 06:48
PROVIDERS: ATTEND Surgery
DX: K94.29 Other complications of gastrostomy (principal); L92.9 Granulomatous disorder of the skin and subcutaneous tissue, unspecified; Z45.2 Encounter for adjustment and management of vascular access device; K22.2 Esophageal obstruction; M19.90 Unspecified osteoarthritis, unspecified site; F32.A Depression, unspecified; F41.9 Anxiety disorder, unspecified; D64.9 Anemia, unspecified
CPT/HCPCS: 17250; 36561; 43249; 77001; J1100; J1642; J2250; J2704; J3010; J3411; J3420; J3490; J7120; C1726

== ENCOUNTER 2023-01-25 18:51 | Emergency (ER) | payer BC ==
[2023-01-25 19:46] VITALS: PULSE 101
[2023-01-25 20:17] VITALS: BP 125/74
== END 2023-01-25 20:59 | disposition home or self-care (01) ==
LOC: JP.ED 18:51
DX: K04.7 Periapical abscess without sinus (principal); I10 Essential (primary) hypertension; K21.9 Gastro-esophageal reflux disease without esophagitis; Z79.899 Other long term (current) drug therapy
CPT/HCPCS: 99282; 99283

== ENCOUNTER 2023-01-27 06:24 | Day surgery (SDC) | payer BC ==
[2023-01-27] MEDS ORDERED: Cyanocobalamin (Vitamin B12) 1,000 MCG/ML SDV IM ONE (06:30)
[2023-01-27] MEDS ORDERED: Propofol 200 MG/20 ML SDV ONE (07:07)
[2023-01-27] MEDS ORDERED: fentaNYL 100 MCG/2 ML SDV ONE (07:07)
[2023-01-27] MEDS ORDERED: Midazolam 1 MG/ML 2 ML SDV ONE (07:07)
[2023-01-27] MEDS ORDERED: Silver Nitrate Applicator Each ONE (07:28)
[2023-01-27] MEDS ORDERED: Lactated Ringers 1,000 ML IV SCH (07:30)
[2023-01-27] MEDS ORDERED: Scopolamine 1.5 MG Transdermal Patch TOP SCH (07:30)
[2023-01-27] MEDS ORDERED: Glycopyrrolate 0.2 MG/ML 2 ML SDV IVPUSH ONE (07:45)
[2023-01-27] MEDS ORDERED: Dexamethasone 4 MG/ML SDV ONE (08:02)
[2023-01-27 08:23] VITALS: PULSE 82
[2023-01-27] MEDS ORDERED: MVI, Adult with Vitamin K 10 ML, Thiamine 200 MG, Zinc/Copper/Manganese/Selenium 1 ML i... IV ONE ×4 (08:30)
[2023-01-27 09:19] VITALS: BP 94/62
== END 2023-01-27 09:15 | disposition home or self-care (01) ==
LOC: JP.SDS 06:24
PROVIDERS: ATTEND Surgery
DX: K91.89 Other postprocedural complications and disorders of digestive system (principal); K22.2 Esophageal obstruction; K94.29 Other complications of gastrostomy; L92.8 Other granulomatous disorders of the skin and subcutaneous tissue; M19.90 Unspecified osteoarthritis, unspecified site; F41.9 Anxiety disorder, unspecified; F32.A Depression, unspecified; D64.9 Anemia, unspecified
CPT/HCPCS: 17250; 43249; A9270; C1726; J1100; J1642; J2250; J2704; J3010; J3411; J3420; J7120; J3490

== ENCOUNTER 2023-02-04 16:59 | Inpatient (IN) | payer BC ==
[2023-02-04] MEDS ORDERED: Ondansetron 4 MG/2 ML SDV IVPUSH ONE (18:04)
[2023-02-04] MEDS ORDERED: HYDROmorphone 0.5 MG/0.5 ML Syringe IVPUSH ONE ×2 (18:04→20:05)
[2023-02-04] MEDS ORDERED: Sodium Chloride 0.9% 1,000 ML IV ONE (18:05)
[2023-02-04 18:13] LABS: BASOPHILS PERCENT AUTO 0.3 % (0.1-1.3); EOSINOPHILS ABSOLUTE AUTO 0.15 K/uL (0.00-0.40); EOSINOPHILS PERCENT AUTO 2.1 % (0.0-5.4); HEMATOCRIT 33.8 % (34.3-46.0); HEMOGLOBIN 11.6 g/dL (11.2-15.5); IMMATURE GRAN PERCENT AUTO 0.3 % (0.0-0.7); LYMPHOCYTES ABSOLUTE AUTO 2.62 K/uL (0.8-3.3); LYMPHOCYTES PERCENT AUTO 36.3 % (11.4-47.7); MEAN CORPUSCULAR HEMOGLOBIN 32.5 pg (31.6-35.5); MEAN CORPUSCULAR HGB CONC 34.3 g/dL (31.6-35.5); MEAN CORPUSCULAR VOLUME 94.7 fL (81.4-99.0); MONOCYTES ABSOLUTE AUTO 0.54 K/uL (0.20-0.90); MONOCYTES PERCENT AUTO 7.5 % (3.3-12.6); NEUTROPHILS ABSOLUTE AUTO 3.87 K/uL (1.0-7.6); NEUTROPHILS PERCENT AUTO 53.5 % (40.0-78.1); PLATELET COUNT,PLT 453 K/uL (130-375); RED BLOOD CELL COUNT 3.57 M/uL (3.77-5.24); WHITE BLOOD CELL COUNT,WBC 7.2 K/uL (3.2-11.0)
[2023-02-04 18:14] LABS: BASOPHILS ABSOLUTE AUTO 0.02 K/uL (0.00-0.10); IMMATURE GRAN ABSOLUTE AUTO 0.02 K/uL (0.00-0.23)
[2023-02-04 18:34] LABS: A/G RATIO 0.9 (1.2-2.2); ALANINE AMINOTRANSFERASE,ALT 50 U/L (12-78); ALBUMIN 3.2 g/dL (3.4-5.0); ALKALINE PHOSPHATASE 177 U/L (46-116); ASPARTATE AMNIOTRANSFERASE,AST 37 U/L (15-37); BILIRUBIN TOTAL 0.4 mg/dL (0.2-1.0); BLOOD UREA NITROGEN,BUN 16 mg/dL (7-18); CALCIUM 8.7 mg/dL (8.5-10.1); CARBON DIOXIDE,CO2 22 mmol/L (21-32); CHLORIDE,CL 103 mmol/L (100-108); CREATININE 0.6 mg/dL (0.6-1.0); EST CRCL DRUG DOSING (CG) 91.77 mL/min; ESTIMATED GFR 108 mL/min (>60); GLUCOSE RANDOM 98 mg/dL (74-106); PROTEIN TOTAL,TP 6.6 g/dL (6.4-8.2); SODIUM,NA 139 mmol/L (140-148)
[2023-02-04] MEDS ORDERED: HYDROmorphone 0.5 MG/0.5 ML Syringe IVPUSH PRN (19:02)
[2023-02-04] MEDS ORDERED: Potassium Chloride 10 MEQ in Premix Bag 1 BAG IV ONE ×2 (19:03→19:04)
[2023-02-04] MEDS ORDERED: Sodium Chloride 0.9% 1,000 ML IV SCH (19:15)
[2023-02-04] MEDS ORDERED: LORazepam 2 MG/ML SDV ONE (19:57)
[2023-02-04] MEDS ORDERED: LORazepam 2 MG/ML SDV IVPUSH ONE (20:04)
[2023-02-04] MEDS ORDERED: Bisacodyl 5 MG Tab PO PRN (20:26)
[2023-02-04] MEDS ORDERED: Hyoscyamine 0.125 MG Tab.SL SL PRN (20:26)
[2023-02-04] MEDS ORDERED: Docusate Sodium 100 MG Cap PO PRN (20:26)
[2023-02-04] MEDS ORDERED: Naloxone 0.4 MG/ML SDV IVPUSH PRN (20:31)
[2023-02-04] MEDS ORDERED: Sodium Chloride 0.9% 50 ML IV SCH (21:00)
[2023-02-04] MEDS ORDERED: Iopamidol 612 MG/ML 100 ML Bottle IV SCH (21:00)
[2023-02-04 21:06] LABS: MAGNESIUM 1.5 mg/dL (1.8-2.4)
[2023-02-04 21:16] LABS: APPEARANCE,URINE CLEAR (CLEAR); BILIRUBIN,URINE NEGATIVE (NEGATIVE); COLOR,URINE YELLOW (YELLOW); GLUCOSE,URINE NEGATIVE (NEGATIVE); KETONES,URINE 40 mg/dL (NEGATIVE); LEUKOCYTE ESTERASE,URINE NEGATIVE (NEGATIVE); NITRITE,URINE NEGATIVE (NEGATIVE); OCCULT BLOOD,URINE NEGATIVE (NEGATIVE); PH,URINE 5.5 (5.0-8.0); PROTEIN,URINE NEGATIVE (NEGATIVE); UROBILINOGEN,URINE 0.2 EU/dL (0.2-1.0)
[2023-02-04 21:24] LABS: AMORPHOUS SEDIMENT,URINE NOT SEEN; BACTERIA,URINE RARE; EPITHELIAL CELLS,URINE RARE; MUCUS,URINE FEW; RBC,URINE 0-5 (0-5); WBC,URINE 0-5 (0-5)
[2023-02-04] MEDS: Pantoprazole 40 MG Vial IV SCH (21:24)
[2023-02-04] MEDS: Bacitracin Oint 28.35 GM Tube TOP SCH (21:24)
[2023-02-04] MEDS: Sodium Chloride 0.9% 1,000 ML IV SCH (21:40)
[2023-02-04] MEDS: HYDROmorphone 0.5 MG/0.5 ML Syringe IVPUSH PRN (21:57)
[2023-02-05] MEDS: HYDROmorphone 0.5 MG/0.5 ML Syringe IVPUSH PRN ×10 (00:09→21:37)
[2023-02-05] MEDS: Ondansetron 4 MG/2 ML SDV IVPUSH PRN ×4 (00:14→15:50)
[2023-02-05] MEDS: Tamsulosin 0.4 MG Cap.ER PO ONE ×2 (02:19→02:24)
[2023-02-05] MEDS: LORazepam 2 MG/ML SDV IV PRN ×2 (03:33→09:29)
[2023-02-05 04:20] LABS: BASOPHILS ABSOLUTE AUTO 0.05 K/uL (0.00-0.10); BASOPHILS PERCENT AUTO 0.5 % (0.1-1.3); EOSINOPHILS ABSOLUTE AUTO 0.22 K/uL (0.00-0.40); EOSINOPHILS PERCENT AUTO 2.2 % (0.0-5.4); HEMATOCRIT 30.4 % (34.3-46.0); HEMOGLOBIN 10.3 g/dL (11.2-15.5); IMMATURE GRAN PERCENT AUTO 0.2 % (0.0-0.7); LYMPHOCYTES ABSOLUTE AUTO 4.26 K/uL (0.8-3.3); MEAN CORPUSCULAR HEMOGLOBIN 32.3 pg (31.6-35.5); MEAN CORPUSCULAR HGB CONC 33.9 g/dL (31.6-35.5); MEAN CORPUSCULAR VOLUME 95.3 fL (81.4-99.0); MONOCYTES ABSOLUTE AUTO 0.78 K/uL (0.20-0.90); MONOCYTES PERCENT AUTO 7.9 % (3.3-12.6); NEUTROPHILS ABSOLUTE AUTO 4.57 K/uL (1.0-7.6); NEUTROPHILS PERCENT AUTO 46.2 % (40.0-78.1); PLATELET COUNT,PLT 403 K/uL (130-375); RED BLOOD CELL COUNT 3.19 M/uL (3.77-5.24); WHITE BLOOD CELL COUNT,WBC 9.9 K/uL (3.2-11.0)
[2023-02-05 04:34] LABS: CALCIUM 8.1 mg/dL (8.5-10.1); CREATININE 0.7 mg/dL (0.6-1.0); EST CRCL DRUG DOSING (CG) 78.93 mL/min; POTASSIUM,K 3.4 mmol/L (3.6-5.2)
[2023-02-05 05:22] LABS: ANION GAP 12.4 mmol/L (5.0-14.0)
[2023-02-05 05:23] LABS: IMMATURE GRAN ABSOLUTE AUTO 0.02 K/uL (0.00-0.23)
[2023-02-05] MEDS: Citalopram 20 MG Tab PO SCH (08:23)
[2023-02-05] MEDS: Acetaminophen 325 MG Tab PO PRN (09:00)
[2023-02-05] MEDS: Bacitracin Oint 28.35 GM Tube TOP SCH ×4 (09:48→20:19)
[2023-02-05] MEDS: Potassium Chloride 10 MEQ in Premix Bag 1 BAG IV SCH ×8 (09:51→20:19)
[2023-02-05] MEDS: oxyCODONE 5 MG Tab PO PRN ×2 (09:54→15:50)
[2023-02-05] MEDS ORDERED: Aluminum Hydroxide/Magnesium Hydroxide/Simethicone Susp 30 ML Cup GTUBE PRN (10:18)
[2023-02-05] MEDS: Sodium Chloride 0.9% 1,000 ML IV SCH ×2 (10:24→21:05)
[2023-02-05] MEDS: hydrOXYzine HCL 100 MG/2 ML SDV IM PRN ×2 (10:50→18:26)
[2023-02-05] MEDS: Magnesium Sulfate/Water 2 GM in Premix Bag 1 BAG IV SCH ×3 (10:51→21:04)
[2023-02-05] MEDS: Pantoprazole 40 MG Vial IV SCH (20:19)
[2023-02-06] MEDS: Ondansetron 4 MG/2 ML SDV IVPUSH PRN ×4 (00:30→20:36)
[2023-02-06] MEDS: HYDROmorphone 0.5 MG/0.5 ML Syringe IVPUSH PRN ×9 (00:30→23:33)
[2023-02-06] MEDS: hydrOXYzine HCL 100 MG/2 ML SDV IM PRN ×2 (04:33→17:04)
[2023-02-06 04:37] LABS: BASOPHILS ABSOLUTE AUTO 0.03 K/uL (0.00-0.10); BASOPHILS PERCENT AUTO 0.3 % (0.1-1.3); EOSINOPHILS ABSOLUTE AUTO 0.36 K/uL (0.00-0.40); EOSINOPHILS PERCENT AUTO 3.9 % (0.0-5.4); HEMATOCRIT 30.2 % (34.3-46.0); HEMOGLOBIN 9.9 g/dL (11.2-15.5); IMMATURE GRAN PERCENT AUTO 0.1 % (0.0-0.7); LYMPHOCYTES ABSOLUTE AUTO 3.44 K/uL (0.8-3.3); LYMPHOCYTES PERCENT AUTO 37.7 % (11.4-47.7); MEAN CORPUSCULAR HEMOGLOBIN 31.9 pg (31.6-35.5); MEAN CORPUSCULAR HGB CONC 32.8 g/dL (31.6-35.5); MEAN CORPUSCULAR VOLUME 97.4 fL (81.4-99.0); MONOCYTES ABSOLUTE AUTO 0.81 K/uL (0.20-0.90); MONOCYTES PERCENT AUTO 8.9 % (3.3-12.6); NEUTROPHILS ABSOLUTE AUTO 4.47 K/uL (1.0-7.6); NEUTROPHILS PERCENT AUTO 49.1 % (40.0-78.1); PLATELET COUNT,PLT 363 K/uL (130-375); WHITE BLOOD CELL COUNT,WBC 9.1 K/uL (3.2-11.0)
[2023-02-06 04:59] LABS: A/G RATIO 0.9 (1.2-2.2); ALANINE AMINOTRANSFERASE,ALT 34 U/L (12-78); ALBUMIN 2.7 g/dL (3.4-5.0); ALKALINE PHOSPHATASE 148 U/L (46-116); ANION GAP 8.9 mmol/L (5.0-14.0); ASPARTATE AMNIOTRANSFERASE,AST 26 U/L (15-37); BILIRUBIN TOTAL 0.3 mg/dL (0.2-1.0); BLOOD UREA NITROGEN,BUN 4 mg/dL (7-18); CALCIUM 8.1 mg/dL (8.5-10.1); CARBON DIOXIDE,CO2 25 mmol/L (21-32); CHLORIDE,CL 106 mmol/L (100-108); CREATININE 0.5 mg/dL (0.6-1.0); ESTIMATED GFR 113 mL/min (>60); GLUCOSE RANDOM 92 mg/dL (74-106); MAGNESIUM 1.9 mg/dL (1.8-2.4); POTASSIUM,K 4.6 mmol/L (3.6-5.2); PROTEIN TOTAL,TP 5.6 g/dL (6.4-8.2); SODIUM,NA 140 mmol/L (140-148)
[2023-02-06 05:04] LABS: IMMATURE GRAN ABSOLUTE AUTO 0.01 K/uL (0.00-0.23)
[2023-02-06] MEDS: Sodium Chloride 0.9% 1,000 ML IV SCH ×2 (07:29→15:51)
[2023-02-06] MEDS: Bacitracin Oint 28.35 GM Tube TOP SCH ×3 (08:59→20:36)
[2023-02-06] MEDS ORDERED: Scopolamine 1.5 MG Transdermal Patch TRDERM PRN (09:12)
[2023-02-06] MEDS: Citalopram 20 MG Tab PO SCH (11:06)
[2023-02-06] MEDS: Pantoprazole 40 MG Vial IV SCH (20:35)
[2023-02-07] MEDS: HYDROmorphone 0.5 MG/0.5 ML Syringe IVPUSH PRN ×6 (01:39→13:36)
[2023-02-07] MEDS: Ondansetron 4 MG/2 ML SDV IVPUSH PRN ×3 (03:14→21:31)
[2023-02-07] MEDS: Sodium Chloride 0.9% 1,000 ML IV SCH ×3 (03:14→23:36)
[2023-02-07 05:43] LABS: BASOPHILS ABSOLUTE AUTO 0.03 K/uL (0.00-0.10); BASOPHILS PERCENT AUTO 0.3 % (0.1-1.3); EOSINOPHILS ABSOLUTE AUTO 0.35 K/uL (0.00-0.40); EOSINOPHILS PERCENT AUTO 3.3 % (0.0-5.4); HEMATOCRIT 28.7 % (34.3-46.0); HEMOGLOBIN 9.7 g/dL (11.2-15.5); IMMATURE GRAN ABSOLUTE AUTO 0.03 K/uL (0.00-0.23); IMMATURE GRAN PERCENT AUTO 0.3 % (0.0-0.7); LYMPHOCYTES ABSOLUTE AUTO 2.92 K/uL (0.8-3.3); LYMPHOCYTES PERCENT AUTO 27.7 % (11.4-47.7); MEAN CORPUSCULAR HGB CONC 33.8 g/dL (31.6-35.5); MEAN CORPUSCULAR VOLUME 97.6 fL (81.4-99.0); MONOCYTES ABSOLUTE AUTO 0.89 K/uL (0.20-0.90); MONOCYTES PERCENT AUTO 8.4 % (3.3-12.6); NEUTROPHILS ABSOLUTE AUTO 6.34 K/uL (1.0-7.6); PLATELET COUNT,PLT 331 K/uL (130-375); RED BLOOD CELL COUNT 2.94 M/uL (3.77-5.24); WHITE BLOOD CELL COUNT,WBC 10.6 K/uL (3.2-11.0)
[2023-02-07 05:57] LABS: ANION GAP 7.7 mmol/L (5.0-14.0); CREATININE 0.4 mg/dL (0.6-1.0); EST CRCL DRUG DOSING (CG) 132.2 mL/min; POTASSIUM,K 4.3 mmol/L (3.6-5.2)
[2023-02-07] MEDS: Bacitracin Oint 28.35 GM Tube TOP SCH ×3 (09:26→23:29)
[2023-02-07] MEDS: Citalopram 20 MG Tab PO SCH (09:26)
[2023-02-07] MEDS ORDERED: Polyethylene Glycol 3350 Powder 17 GM Packet PO PRN (09:33)
[2023-02-07] MEDS: HYDROmorphone 2 MG Tab PO PRN ×3 (11:31→21:52)
[2023-02-07] MEDS: Pantoprazole 40 MG Tab.CR PO SCH (23:29)
[2023-02-08] MEDS: HYDROmorphone 2 MG Tab PO PRN ×6 (03:10→23:26)
[2023-02-08 06:06] LABS: A/G RATIO 0.7 (1.2-2.2); ALANINE AMINOTRANSFERASE,ALT 34 U/L (12-78); ALBUMIN 2.3 g/dL (3.4-5.0); ALKALINE PHOSPHATASE 138 U/L (46-116); ASPARTATE AMNIOTRANSFERASE,AST 32 U/L (15-37); BILIRUBIN TOTAL 0.3 mg/dL (0.2-1.0); BLOOD UREA NITROGEN,BUN 3 mg/dL (7-18); CALCIUM 7.7 mg/dL (8.5-10.1); CARBON DIOXIDE,CO2 28 mmol/L (21-32); CHLORIDE,CL 106 mmol/L (100-108); CREATININE 0.4 mg/dL (0.6-1.0); ESTIMATED GFR 119 mL/min (>60); GLUCOSE RANDOM 130 mg/dL (74-106); HEMATOCRIT 27.6 % (34.3-46.0); HEMOGLOBIN 9.4 g/dL (11.2-15.5); MEAN CORPUSCULAR HEMOGLOBIN 32.8 pg (31.6-35.5); MEAN CORPUSCULAR HGB CONC 34.1 g/dL (31.6-35.5); MEAN CORPUSCULAR VOLUME 96.2 fL (81.4-99.0); POTASSIUM,K 3.5 mmol/L (3.6-5.2); PROTEIN TOTAL,TP 5.5 g/dL (6.4-8.2); RED BLOOD CELL COUNT 2.87 M/uL (3.77-5.24); SODIUM,NA 139 mmol/L (140-148); WHITE BLOOD CELL COUNT,WBC 10.9 K/uL (3.2-11.0)
[2023-02-08 06:14] LABS: ANION GAP 8.5 mmol/L (5.0-14.0)
[2023-02-08] MEDS: Hyoscyamine 0.125 MG Tab.SL SL SCH ×4 (08:51→19:36)
[2023-02-08] MEDS: Citalopram 20 MG Tab PO SCH (08:51)
[2023-02-08] MEDS: Bacitracin Oint 28.35 GM Tube TOP SCH ×3 (09:05→21:35)
[2023-02-08] MEDS: Potassium Chloride 10 MEQ in Premix Bag 1 BAG IV SCH ×2 (09:11→10:15)
[2023-02-08] MEDS: Sodium Chloride 0.9% 1,000 ML IV SCH ×2 (09:13→19:34)
[2023-02-08] MEDS: Ondansetron 4 MG Tab.DIS PO PRN ×2 (09:27→18:04)
[2023-02-08] MEDS: Albumin Human 25 GM in Premix Bag 1 BAG IV SCH (10:42)
[2023-02-08] MEDS: Pantoprazole 40 MG Tab.CR PO SCH (21:35)
[2023-02-08] MEDS: hydrOXYzine HCl 25 MG Tab PO PRN (23:26)
[2023-02-09] MEDS: HYDROmorphone 2 MG Tab PO PRN ×4 (03:32→20:03)
[2023-02-09 04:08] LABS: HEMATOCRIT 25.8 % (34.3-46.0); HEMOGLOBIN 8.7 g/dL (11.2-15.5); MEAN CORPUSCULAR HEMOGLOBIN 32.8 pg (31.6-35.5); MEAN CORPUSCULAR HGB CONC 33.7 g/dL (31.6-35.5); MEAN CORPUSCULAR VOLUME 97.4 fL (81.4-99.0); RED BLOOD CELL COUNT 2.65 M/uL (3.77-5.24); WHITE BLOOD CELL COUNT,WBC 8.8 K/uL (3.2-11.0)
[2023-02-09 04:33] LABS: A/G RATIO 0.8 (1.2-2.2); ALANINE AMINOTRANSFERASE,ALT 36 U/L (12-78); ALBUMIN 2.4 g/dL (3.4-5.0); ALKALINE PHOSPHATASE 113 U/L (46-116); ASPARTATE AMNIOTRANSFERASE,AST 35 U/L (15-37); BILIRUBIN TOTAL 0.2 mg/dL (0.2-1.0); BLOOD UREA NITROGEN,BUN 4 mg/dL (7-18); CALCIUM 7.6 mg/dL (8.5-10.1); CARBON DIOXIDE,CO2 28 mmol/L (21-32); CHLORIDE,CL 108 mmol/L (100-108); CREATININE 0.4 mg/dL (0.6-1.0); EST CRCL DRUG DOSING (CG) 143.02 mL/min; ESTIMATED GFR 119 mL/min (>60); GLUCOSE RANDOM 113 mg/dL (74-106); MAGNESIUM 1.4 mg/dL (1.8-2.4); PHOSPHORUS 3.6 mg/dL (2.5-4.9); POTASSIUM,K 3.5 mmol/L (3.6-5.2); PROTEIN TOTAL,TP 5.4 g/dL (6.4-8.2); SODIUM,NA 140 mmol/L (140-148)
[2023-02-09 04:34] LABS: ANION GAP 7.5 mmol/L (5.0-14.0)
[2023-02-09] MEDS: Sodium Chloride 0.9% 1,000 ML IV SCH ×2 (05:42→19:28)
[2023-02-09] MEDS ORDERED: Magnesium Sulfate/Water 2 GM/50 ML BAG SCH (06:30)
[2023-02-09] MEDS: Ondansetron 4 MG Tab.DIS PO PRN ×3 (07:35→20:03)
[2023-02-09] MEDS: Hyoscyamine 0.125 MG Tab.SL SL SCH ×4 (07:54→20:04)
[2023-02-09] MEDS ORDERED: Propofol 200 MG/20 ML SDV ONE (10:49)
[2023-02-09] MEDS ORDERED: Midazolam 1 MG/ML 2 ML SDV ONE (10:49)
[2023-02-09] MEDS ORDERED: fentaNYL 100 MCG/2 ML SDV ONE (10:49)
[2023-02-09] MEDS: Glycopyrrolate 0.2 MG/ML 2 ML SDV IVPUSH ONE ×2 (10:50→11:54)
[2023-02-09] MEDS ORDERED: Dexamethasone 4 MG/ML SDV ONE (11:13)
[2023-02-09] MEDS: HYDROmorphone 0.5 MG/0.5 ML Syringe IVPUSH PRN (12:06)
[2023-02-09] MEDS: Bacitracin Oint 28.35 GM Tube TOP SCH ×3 (12:08→20:03)
[2023-02-09] MEDS: Albumin Human 25 GM in Premix Bag 1 BAG IV SCH (12:09)
[2023-02-09] MEDS: Citalopram 20 MG Tab PO SCH (12:15)
[2023-02-09] MEDS: Potassium Phosphates 3 mMole/ML 15 ML SDV SCH ×2 (12:17→16:03)
[2023-02-09] MEDS: Magnesium Oxide 400 MG Tab GTUBE SCH ×2 (13:25→18:21)
[2023-02-09] MEDS: Pantoprazole 40 MG Tab.CR PO SCH (20:04)
[2023-02-10] MEDS: HYDROmorphone 2 MG Tab PO PRN ×6 (00:05→20:32)
[2023-02-10] MEDS: hydrOXYzine HCl 25 MG Tab PO PRN ×3 (00:05→20:35)
[2023-02-10] MEDS: Magnesium Oxide 400 MG Tab GTUBE SCH ×3 (00:05→12:45)
[2023-02-10] MEDS: Ondansetron 4 MG Tab.DIS PO PRN ×2 (00:07→09:24)
[2023-02-10] MEDS ORDERED: Iopamidol 612 MG/ML 100 ML Bottle IV PRN (04:19)
[2023-02-10 04:23] LABS: HEMATOCRIT 25.4 % (34.3-46.0); HEMOGLOBIN 8.4 g/dL (11.2-15.5); MEAN CORPUSCULAR HEMOGLOBIN 32.7 pg (31.6-35.5); MEAN CORPUSCULAR HGB CONC 33.1 g/dL (31.6-35.5); MEAN CORPUSCULAR VOLUME 98.8 fL (81.4-99.0); RED BLOOD CELL COUNT 2.57 M/uL (3.77-5.24); WHITE BLOOD CELL COUNT,WBC 10.9 K/uL (3.2-11.0)
[2023-02-10 04:43] LABS: A/G RATIO 0.9 (1.2-2.2); ALANINE AMINOTRANSFERASE,ALT 36 U/L (12-78); ALBUMIN 2.7 g/dL (3.4-5.0); ALKALINE PHOSPHATASE 104 U/L (46-116); ANION GAP 8.8 mmol/L (5.0-14.0); ASPARTATE AMNIOTRANSFERASE,AST 27 U/L (15-37); BILIRUBIN TOTAL 0.1 mg/dL (0.2-1.0); BLOOD UREA NITROGEN,BUN 10 mg/dL (7-18); CALCIUM 7.2 mg/dL (8.5-10.1); CARBON DIOXIDE,CO2 27 mmol/L (21-32); CHLORIDE,CL 104 mmol/L (100-108); CREATININE 0.4 mg/dL (0.6-1.0); ESTIMATED GFR 119 mL/min (>60); GLUCOSE RANDOM 111 mg/dL (74-106); PHOSPHORUS 3.4 mg/dL (2.5-4.9); POTASSIUM,K 3.6 mmol/L (3.6-5.2); PROTEIN TOTAL,TP 5.6 g/dL (6.4-8.2); SODIUM,NA 140 mmol/L (140-148)
[2023-02-10] MEDS: Sodium Chloride 0.9% 1,000 ML IV SCH (05:35)
[2023-02-10] MEDS: Hyoscyamine 0.125 MG Tab.SL SL SCH ×4 (08:06→20:32)
[2023-02-10] MEDS: Citalopram 20 MG Tab PO SCH (08:09)
[2023-02-10] MEDS: Bacitracin Oint 28.35 GM Tube TOP SCH ×3 (08:30→20:32)
[2023-02-10] MEDS: Acetaminophen 325 MG Tab PO PRN (09:24)
[2023-02-10] MEDS: Albumin Human 25 GM in Premix Bag 1 BAG IV SCH (10:39)
[2023-02-10] MEDS ORDERED: Sodium Chloride 0.9% 1,000 ML IV SCH (12:02)
[2023-02-10] MEDS: Magnesium Sulfate/Water 2 GM in Premix Bag 1 BAG IV SCH (20:32)
[2023-02-10] MEDS: Pantoprazole 40 MG Tab.CR PO SCH (20:32)
[2023-02-10] MEDS ORDERED: Albumin Human 25 GM in Premix Bag 1 BAG IV SCH (23:55)
[2023-02-11] MEDS: HYDROmorphone 2 MG Tab PO PRN ×6 (01:02→21:21)
[2023-02-11] MEDS: hydrOXYzine HCl 25 MG Tab PO PRN ×3 (04:29→21:21)
[2023-02-11] MEDS: Magnesium Sulfate/Water 2 GM in Premix Bag 1 BAG IV SCH ×2 (04:34→09:19)
[2023-02-11 04:51] LABS: HEMATOCRIT 30.6 % (34.3-46.0); HEMOGLOBIN 10.3 g/dL (11.2-15.5); MEAN CORPUSCULAR HEMOGLOBIN 31.8 pg (31.6-35.5); MEAN CORPUSCULAR HGB CONC 33.7 g/dL (31.6-35.5); MEAN CORPUSCULAR VOLUME 94.4 fL (81.4-99.0); RED BLOOD CELL COUNT 3.24 M/uL (3.77-5.24); WHITE BLOOD CELL COUNT,WBC 9.2 K/uL (3.2-11.0)
[2023-02-11 05:11] LABS: A/G RATIO 1.1 (1.2-2.2); ALANINE AMINOTRANSFERASE,ALT 51 U/L (12-78); ALBUMIN 2.9 g/dL (3.4-5.0); ALKALINE PHOSPHATASE 93 U/L (46-116); ASPARTATE AMNIOTRANSFERASE,AST 38 U/L (15-37); BILIRUBIN TOTAL 0.2 mg/dL (0.2-1.0); BLOOD UREA NITROGEN,BUN 13 mg/dL (7-18); CALCIUM 7.3 mg/dL (8.5-10.1); CARBON DIOXIDE,CO2 30 mmol/L (21-32); CHLORIDE,CL 106 mmol/L (100-108); CREATININE 0.5 mg/dL (0.6-1.0); EST CRCL DRUG DOSING (CG) 114.48 mL/min; ESTIMATED GFR 113 mL/min (>60); GLUCOSE RANDOM 100 mg/dL (74-106); PHOSPHORUS 3.8 mg/dL (2.5-4.9); POTASSIUM,K 3.5 mmol/L (3.6-5.2); PROTEIN TOTAL,TP 5.6 g/dL (6.4-8.2); SODIUM,NA 141 mmol/L (140-148)
[2023-02-11 05:12] LABS: ANION GAP 8.5 mmol/L (5.0-14.0)
[2023-02-11] MEDS: Hyoscyamine 0.125 MG Tab.SL SL SCH ×4 (07:43→19:25)
[2023-02-11] MEDS: Acetaminophen 325 MG Tab PO PRN ×2 (07:44→22:48)
[2023-02-11] MEDS: Bacitracin Oint 28.35 GM Tube TOP SCH ×3 (09:19→21:22)
[2023-02-11] MEDS: Citalopram 20 MG Tab PO SCH (09:19)
[2023-02-11] MEDS: Potassium Phosphates 3 mMole/ML 15 ML SDV SCH ×3 (10:47→21:20)
[2023-02-11] MEDS: Pantoprazole 40 MG Tab.CR PO SCH (21:21)
[2023-02-11] MEDS: Ondansetron 4 MG Tab.DIS PO PRN (22:48)
[2023-02-12] MEDS: HYDROmorphone 2 MG Tab PO PRN ×5 (01:20→17:49)
[2023-02-12 04:48] LABS: HEMATOCRIT 34.5 % (34.3-46.0); HEMOGLOBIN 11.3 g/dL (11.2-15.5); MEAN CORPUSCULAR HEMOGLOBIN 31.8 pg (31.6-35.5); MEAN CORPUSCULAR HGB CONC 32.8 g/dL (31.6-35.5); MEAN CORPUSCULAR VOLUME 97.2 fL (81.4-99.0); RED BLOOD CELL COUNT 3.55 M/uL (3.77-5.24); WHITE BLOOD CELL COUNT,WBC 7.3 K/uL (3.2-11.0)
[2023-02-12 05:20] LABS: ALANINE AMINOTRANSFERASE,ALT 58 U/L (12-78); ALBUMIN 3.2 g/dL (3.4-5.0); ALKALINE PHOSPHATASE 110 U/L (46-116); ASPARTATE AMNIOTRANSFERASE,AST 27 U/L (15-37); BILIRUBIN TOTAL 0.2 mg/dL (0.2-1.0); BLOOD UREA NITROGEN,BUN 15 mg/dL (7-18); CALCIUM 7.9 mg/dL (8.5-10.1); CARBON DIOXIDE,CO2 33 mmol/L (21-32); CHLORIDE,CL 102 mmol/L (100-108); CREATININE 0.4 mg/dL (0.6-1.0); ESTIMATED GFR 119 mL/min (>60); GLUCOSE RANDOM 84 mg/dL (74-106); PHOSPHORUS 5.1 mg/dL (2.5-4.9); PROTEIN TOTAL,TP 6.4 g/dL (6.4-8.2); SODIUM,NA 140 mmol/L (140-148)
[2023-02-12] MEDS: hydrOXYzine HCl 25 MG Tab PO PRN ×3 (05:24→17:49)
[2023-02-12] MEDS: Hyoscyamine 0.125 MG Tab.SL SL SCH ×4 (07:35→20:08)
[2023-02-12] MEDS: Citalopram 20 MG Tab PO SCH (09:45)
[2023-02-12] MEDS: Albumin Human 25 GM in Premix Bag 1 BAG IV SCH ×2 (11:10→15:56)
[2023-02-12] MEDS: Dextrose 5%-Lactated Ringers 1,000 ML IV SCH (11:10)
[2023-02-12] MEDS: Bacitracin Oint 28.35 GM Tube TOP SCH ×3 (11:20→20:08)
[2023-02-12] MEDS: Acetaminophen 325 MG Tab PO PRN ×2 (11:21→20:16)
[2023-02-12] MEDS: Pantoprazole 40 MG Tab.CR PO SCH (20:08)
[2023-02-12] MEDS: HYDROmorphone 0.5 MG/0.5 ML Syringe IVPUSH PRN (21:31)
[2023-02-13] MEDS: hydrOXYzine HCl 25 MG Tab PO PRN (00:20)
[2023-02-13] MEDS: HYDROmorphone 2 MG Tab PO PRN (00:39)
[2023-02-13] MEDS: HYDROmorphone 0.5 MG/0.5 ML Syringe IVPUSH PRN ×2 (03:49→07:55)
[2023-02-13] MEDS: Dextrose 5%-Lactated Ringers 1,000 ML IV SCH ×2 (04:38→23:25)
[2023-02-13] MEDS ORDERED: Bupivacaine 0.5% 50 ML MDV ONE (07:19)
[2023-02-13] MEDS ORDERED: Lidocaine 1% with EPINEPHrine 1:100,000 50 ML MDV ONE (07:19)
[2023-02-13] MEDS ORDERED: Meropenem 500 MG SDV ONE ×3 (07:19→14:39)
[2023-02-13] MEDS: Hyoscyamine 0.125 MG Tab.SL SL SCH ×2 (07:51→13:27)
[2023-02-13] MEDS ORDERED: fentaNYL 250 MCG/5 ML SDV ONE (08:00)
[2023-02-13] MEDS ORDERED: Rocuronium 50 MG/5 ML Vial ONE ×2 (08:01→12:40)
[2023-02-13] MEDS ORDERED: Propofol 200 MG/20 ML SDV ONE (08:01)
[2023-02-13] MEDS ORDERED: Dexamethasone 4 MG/ML SDV ONE (08:01)
[2023-02-13] MEDS ORDERED: Ondansetron 4 MG/2 ML SDV ONE (08:01)
[2023-02-13] MEDS ORDERED: Succinylcholine 200 MG/10 ML MDV ONE (08:01)
[2023-02-13] MEDS ORDERED: Glycopyrrolate 0.2 MG/ML 5 ML MDV ONE (08:01)
[2023-02-13] MEDS ORDERED: Neostigmine Methylsulfate 1 MG/ML 5 ML Syringe ONE (08:01)
[2023-02-13] MEDS ORDERED: Naloxone 0.4 MG/ML SDV IVPUSH PRN (08:30)
[2023-02-13] MEDS ORDERED: Piperacillin/Tazobactam/Dext 3.375 GM in Premix Bag 1 BAG IV ONE (08:45)
[2023-02-13] MEDS: Citalopram 20 MG Tab PO SCH (08:54)
[2023-02-13] MEDS: Bacitracin Oint 28.35 GM Tube TOP SCH ×2 (08:54→15:21)
[2023-02-13] MEDS ORDERED: Linezolid 600 MG/300 ML Premix Bag IRR ONE (10:56)
[2023-02-13] MEDS ORDERED: Sodium Chloride 0.9% 10 ML ONE ×2 (11:31→13:29)
[2023-02-13] MEDS ORDERED: Scopolamine 1.5 MG Transdermal Patch ONE (11:49)
[2023-02-13] MEDS ORDERED: VERIFY SCOP PATCH SCH (12:00)
[2023-02-13] MEDS ORDERED: fentaNYL 100 MCG/2 ML SDV ONE (12:22)
[2023-02-13] MEDS ORDERED: Lactated Ringers 1,000 ML ONE ×2 (14:38→17:00)
[2023-02-13] MEDS ORDERED: diphenhydrAMINE 50 MG/ML SDV IVPUSH PRN (17:00)
[2023-02-13] MEDS ORDERED: Acetaminophen 500 MG Tab PO PRN (17:00)
[2023-02-13] MEDS ORDERED: Naloxone 0.4 MG/ML SDV IV PRN (17:00)
[2023-02-13] MEDS ORDERED: Labetalol 20 MG/4 ML Syringe IVPUSH PRN (17:00)
[2023-02-13] MEDS: MVI, Adult with Vitamin K 10 ML, Thiamine 200 MG, Zinc/Copper/Manganese/Selenium 1 ML i... IV SCH ×4 (17:35)
[2023-02-13] MEDS: cefOXitin 2 GM in Sodium Chloride 0.9% 50 ML IV SCH ×2 (17:36→23:11)
[2023-02-13] MEDS: fentaNYL 2,500 MCG in Sodium Chloride 0.9% 200 ML EPIDUR SCH (17:36)
[2023-02-13] MEDS: SCOPOLAMINE PATCH CHECK TOP SCH (17:39)
[2023-02-13] MEDS: Ondansetron 4 MG/2 ML SDV IVPUSH PRN (18:01)
[2023-02-13 18:54] LABS: ANION GAP 12.4 mmol/L (5.0-14.0); CALCIUM 8.2 mg/dL (8.5-10.1); CREATININE 0.9 mg/dL (0.6-1.0); EST CRCL DRUG DOSING (CG) 63.6 mL/min; MAGNESIUM 1.2 mg/dL (1.8-2.4); PHOSPHORUS 5.9 mg/dL (2.5-4.9); POTASSIUM,K 3.4 mmol/L (3.6-5.2)
[2023-02-13] MEDS ORDERED: Acetaminophen Soln 650 MG/20.3 ML UD Cup PO SCH (20:00)
[2023-02-13] MEDS: Acetaminophen Soln 650 MG/20.3 ML UD Cup PO SCH (21:37)
[2023-02-13] MEDS: Pantoprazole 40 MG Vial IVPUSH SCH (21:38)
[2023-02-13] MEDS ORDERED: Acetaminophen 500 MG Tab PO SCH (22:00)
[2023-02-14] MEDS ORDERED: Iopamidol 612 MG/ML 30 ML SDV PO ONE (03:23)
[2023-02-14 04:33] LABS: BASOPHILS ABSOLUTE AUTO 0.03 K/uL (0.00-0.10); BASOPHILS PERCENT AUTO 0.2 % (0.1-1.3); HEMATOCRIT 31.7 % (34.3-46.0); HEMOGLOBIN 10.5 g/dL (11.2-15.5); IMMATURE GRAN ABSOLUTE AUTO 0.06 K/uL (0.00-0.23); IMMATURE GRAN PERCENT AUTO 0.4 % (0.0-0.7); LYMPHOCYTES ABSOLUTE AUTO 1.66 K/uL (0.8-3.3); LYMPHOCYTES PERCENT AUTO 12.3 % (11.4-47.7); MEAN CORPUSCULAR HEMOGLOBIN 31.9 pg (31.6-35.5); MEAN CORPUSCULAR HGB CONC 33.1 g/dL (31.6-35.5); MEAN CORPUSCULAR VOLUME 96.4 fL (81.4-99.0); MONOCYTES ABSOLUTE AUTO 0.99 K/uL (0.20-0.90); MONOCYTES PERCENT AUTO 7.3 % (3.3-12.6); NEUTROPHILS ABSOLUTE AUTO 10.73 K/uL (1.0-7.6); NEUTROPHILS PERCENT AUTO 79.8 % (40.0-78.1); PLATELET COUNT,PLT 420 K/uL (130-375); RED BLOOD CELL COUNT 3.29 M/uL (3.77-5.24); WHITE BLOOD CELL COUNT,WBC 13.5 K/uL (3.2-11.0)
[2023-02-14 05:05] LABS: A/G RATIO 1.2 (1.2-2.2); ALANINE AMINOTRANSFERASE,ALT 96 U/L (12-78); ALKALINE PHOSPHATASE 76 U/L (46-116); ASPARTATE AMNIOTRANSFERASE,AST 63 U/L (15-37); BILIRUBIN TOTAL 0.5 mg/dL (0.2-1.0); BLOOD UREA NITROGEN,BUN 20 mg/dL (7-18); CALCIUM 8.1 mg/dL (8.5-10.1); CARBON DIOXIDE,CO2 30 mmol/L (21-32); CHLORIDE,CL 98 mmol/L (100-108); CREATININE 0.7 mg/dL (0.6-1.0); EST CRCL DRUG DOSING (CG) 81.77 mL/min; ESTIMATED GFR 104 mL/min (>60); GLUCOSE RANDOM 194 mg/dL (74-106); MAGNESIUM 1.2 mg/dL (1.8-2.4); PHOSPHORUS 4.2 mg/dL (2.5-4.9); PRO B-TYPE NATRIUR PEPT,BNPPRO 505 pg/mL (5-125); PROTEIN TOTAL,TP 5.6 g/dL (6.4-8.2); SODIUM,NA 134 mmol/L (140-148)
[2023-02-14] MEDS: Dextrose 5%-Lactated Ringers 1,000 ML IV SCH ×2 (05:26→11:56)
[2023-02-14] MEDS: fentaNYL 2,500 MCG in Sodium Chloride 0.9% 200 ML EPIDUR SCH (05:34)
[2023-02-14] MEDS: Acetaminophen Soln 650 MG/20.3 ML UD Cup PO SCH ×3 (06:03→21:08)
[2023-02-14] MEDS: cefOXitin 2 GM in Sodium Chloride 0.9% 50 ML IV SCH ×4 (06:04→23:18)
[2023-02-14] MEDS: SCOPOLAMINE PATCH CHECK TOP SCH (08:16)
[2023-02-14] MEDS: Magnesium Sulfate/Water 2 GM in Premix Bag 1 BAG IV SCH ×3 (08:56→21:06)
[2023-02-14] MEDS: Citalopram 20 MG Tab PO SCH (09:55)
[2023-02-14] MEDS: hydrOXYzine HCL 100 MG/2 ML SDV IM PRN ×3 (10:34→23:36)
[2023-02-14] MEDS ORDERED: Lactated Ringers 500 ML IV ONE (12:09)
[2023-02-14] MEDS: MVI, Adult with Vitamin K 10 ML, Thiamine 200 MG, Zinc/Copper/Manganese/Selenium 1 ML i... IV SCH ×4 (17:31)
[2023-02-14] MEDS: Pantoprazole 40 MG Vial IVPUSH SCH (21:06)
[2023-02-15] MEDS ORDERED: Meperidine PF 100 MG/ML Syringe IM ONE (00:15)
[2023-02-15] MEDS ORDERED: Sodium Chloride 0.9% 250 ML IV SCH (00:30)
[2023-02-15] MEDS: fentaNYL 2,500 MCG in Sodium Chloride 0.9% 200 ML EPIDUR SCH ×2 (00:56→21:52)
[2023-02-15] MEDS: Dextrose 5%-Lactated Ringers 1,000 ML IV SCH ×2 (01:36→09:31)
[2023-02-15] MEDS: Magnesium Sulfate/Water 2 GM in Premix Bag 1 BAG IV SCH ×4 (03:55→20:55)
[2023-02-15] MEDS: cefOXitin 2 GM in Sodium Chloride 0.9% 50 ML IV SCH ×4 (05:10→23:32)
[2023-02-15] MEDS: Ondansetron 4 MG/2 ML SDV IVPUSH PRN (05:10)
[2023-02-15] MEDS: Acetaminophen Soln 650 MG/20.3 ML UD Cup PO SCH ×3 (05:10→21:43)
[2023-02-15 05:17] LABS: HEMATOCRIT 24.6 % (34.3-46.0); HEMOGLOBIN 7.9 g/dL (11.2-15.5); MEAN CORPUSCULAR HEMOGLOBIN 31.6 pg (31.6-35.5); MEAN CORPUSCULAR HGB CONC 32.1 g/dL (31.6-35.5); MEAN CORPUSCULAR VOLUME 98.4 fL (81.4-99.0); RED BLOOD CELL COUNT 2.5 M/uL (3.77-5.24); WHITE BLOOD CELL COUNT,WBC 19.8 K/uL (3.2-11.0)
[2023-02-15 05:55] LABS: ALANINE AMINOTRANSFERASE,ALT 63 U/L (12-78); ALBUMIN 2.2 g/dL (3.4-5.0); ALKALINE PHOSPHATASE 77 U/L (46-116); ANION GAP 8.9 mmol/L (5.0-14.0); ASPARTATE AMNIOTRANSFERASE,AST 28 U/L (15-37); BILIRUBIN TOTAL 0.3 mg/dL (0.2-1.0); BLOOD UREA NITROGEN,BUN 22 mg/dL (7-18); CALCIUM 7.9 mg/dL (8.5-10.1); CARBON DIOXIDE,CO2 31 mmol/L (21-32); CHLORIDE,CL 103 mmol/L (100-108); CREATININE 0.5 mg/dL (0.6-1.0); EST CRCL DRUG DOSING (CG) 114.48 mL/min; ESTIMATED GFR 113 mL/min (>60); GLUCOSE RANDOM 132 mg/dL (74-106); PHOSPHORUS 2.9 mg/dL (2.5-4.9); POTASSIUM,K 3.9 mmol/L (3.6-5.2); PRO B-TYPE NATRIUR PEPT,BNPPRO 113 pg/mL (5-125); PROTEIN TOTAL,TP 4.8 g/dL (6.4-8.2); SODIUM,NA 139 mmol/L (140-148)
[2023-02-15 05:56] LABS: A/G RATIO 0.9 (1.2-2.2)
[2023-02-15] MEDS ORDERED: Meperidine PF 100 MG/ML Syringe IM PRN (07:08)
[2023-02-15] MEDS ORDERED: Central Total Parenteral Nutrition Bag SCH (08:00)
[2023-02-15] MEDS ORDERED: Loperamide 1 MG/7.5 ML 7.5 ML UD Cup FTUBE PRN (08:07)
[2023-02-15] MEDS: Citalopram 20 MG Tab PO SCH (09:01)
[2023-02-15] MEDS: SCOPOLAMINE PATCH CHECK TOP SCH (09:04)
[2023-02-15] MEDS: hydrOXYzine HCL 100 MG/2 ML SDV IM PRN ×4 (09:13→22:13)
[2023-02-15] MEDS: 1: AA 5%/Calcium/D15W/Lytes 1,000 ML with MVI, Adult with Vitamin K 10 ML, Zinc/Copper/M IV SCH ×6 (11:40→21:40)
[2023-02-15] MEDS: Norepinephrine Bit/D5W Premix 4 MG in Premix Bag 1 BAG IV SCH (11:50)
[2023-02-15] MEDS: Meperidine PF 100 MG/ML Syringe IM PRN ×2 (16:30→22:53)
[2023-02-15] MEDS: Pantoprazole 40 MG Vial IVPUSH SCH (20:57)
[2023-02-15] MEDS: diphenhydrAMINE 50 MG/ML SDV IVPUSH PRN (23:34)
[2023-02-16] MEDS: Norepinephrine Bit/D5W Premix 4 MG in Premix Bag 1 BAG IV SCH ×2 (02:44→23:34)
[2023-02-16] MEDS: Magnesium Sulfate/Water 2 GM in Premix Bag 1 BAG IV SCH ×4 (02:46→21:07)
[2023-02-16] MEDS: hydrOXYzine HCL 100 MG/2 ML SDV IM PRN ×4 (03:03→20:07)
[2023-02-16 04:43] LABS: HEMATOCRIT 31.2 % (34.3-46.0); HEMOGLOBIN 10.1 g/dL (11.2-15.5); MEAN CORPUSCULAR HEMOGLOBIN 30.8 pg (31.6-35.5); MEAN CORPUSCULAR HGB CONC 32.4 g/dL (31.6-35.5); MEAN CORPUSCULAR VOLUME 95.1 fL (81.4-99.0); RED BLOOD CELL COUNT 3.28 M/uL (3.77-5.24); WHITE BLOOD CELL COUNT,WBC 16.8 K/uL (3.2-11.0)
[2023-02-16] MEDS: Acetaminophen Soln 650 MG/20.3 ML UD Cup PO SCH ×3 (05:17→21:14)
[2023-02-16 05:18] LABS: IRON,FE 18 ug/dL (50-170); PERCENT FE SATURATION 10 % (20-55); TOTAL IRON BINDING CAPACITY 180 ug/dl (250-450)
[2023-02-16 05:26] LABS: A/G RATIO 0.7 (1.2-2.2); ALANINE AMINOTRANSFERASE,ALT 49 U/L (12-78); ALBUMIN 2.2 g/dL (3.4-5.0); ALKALINE PHOSPHATASE 90 U/L (46-116); ANION GAP 3.1 mmol/L (5.0-14.0); ASPARTATE AMNIOTRANSFERASE,AST 33 U/L (15-37); BILIRUBIN TOTAL 0.5 mg/dL (0.2-1.0); BLOOD UREA NITROGEN,BUN 15 mg/dL (7-18); CARBON DIOXIDE,CO2 32 mmol/L (21-32); CHLORIDE,CL 105 mmol/L (100-108); CREATININE 0.4 mg/dL (0.6-1.0); ESTIMATED GFR 119 mL/min (>60); GLUCOSE RANDOM 128 mg/dL (74-106); PHOSPHORUS 4.1 mg/dL (2.5-4.9); POTASSIUM,K 3.7 mmol/L (3.6-5.2); PRO B-TYPE NATRIUR PEPT,BNPPRO 451 pg/mL (5-125); PROTEIN TOTAL,TP 5.3 g/dL (6.4-8.2); SODIUM,NA 140 mmol/L (140-148)
[2023-02-16] MEDS: cefOXitin 2 GM in Sodium Chloride 0.9% 50 ML IV SCH ×2 (05:51→13:07)
[2023-02-16] MEDS ORDERED: Lidocaine 1% with EPINEPHrine 1:100,000 50 ML MDV ONE (06:34)
[2023-02-16] MEDS ORDERED: Bupivacaine 0.5% 50 ML MDV ONE (06:34)
[2023-02-16] MEDS ORDERED: Meropenem 500 MG SDV ONE (06:34)
[2023-02-16] MEDS: 1: AA 5%/Calcium/D15W/Lytes 1,000 ML with MVI, Adult with Vitamin K 10 ML, Zinc/Copper/M IV SCH ×6 (07:10→20:08)
[2023-02-16] MEDS ORDERED: Propofol 200 MG/20 ML SDV ONE ×2 (07:13→07:53)
[2023-02-16] MEDS ORDERED: Midazolam 1 MG/ML 2 ML SDV ONE (07:13)
[2023-02-16] MEDS ORDERED: fentaNYL 100 MCG/2 ML SDV ONE (07:13)
[2023-02-16] MEDS ORDERED: Ondansetron 4 MG/2 ML SDV IVPUSH PRN (07:53)
[2023-02-16] MEDS ORDERED: Naloxone 0.4 MG/ML SDV IVPUSH PRN (07:53)
[2023-02-16] MEDS ORDERED: diphenhydrAMINE 25 MG Cap PO PRN (07:53)
[2023-02-16] MEDS ORDERED: diphenhydrAMINE 50 MG/ML SDV IVPUSH PRN (07:53)
[2023-02-16] MEDS ORDERED: Ropivacaine 30 ML, dexAMETHasone 8 MG, EPINEPHrine 0.4 MG, Sodium Chloride 0.9% 47.6 ML NERVRT SCH ×4 (08:00)
[2023-02-16] MEDS ORDERED: Naloxone 0.4 MG/ML SDV IV PRN (08:00)
[2023-02-16] MEDS: HYDROmorphone/Normal Saline 6 MG/30 ML PCA Vial IV PRN ×3 (08:01→23:34)
[2023-02-16] MEDS: Citalopram 20 MG Tab PO SCH (10:36)
[2023-02-16] MEDS: Metoclopramide 10 MG/2 ML SDV IVPUSH PRN ×3 (10:51→23:59)
[2023-02-16] MEDS: Meperidine PF 100 MG/ML Syringe IM PRN ×3 (11:30→23:38)
[2023-02-16] MEDS: Hyoscyamine 0.125 MG Tab.SL SL PRN ×2 (15:51→20:25)
[2023-02-16] MEDS: Pantoprazole 40 MG Vial IVPUSH SCH (21:13)
[2023-02-16] MEDS: diphenhydrAMINE 50 MG/ML SDV IVPUSH PRN (21:24)
[2023-02-17] MEDS: Hyoscyamine 0.125 MG Tab.SL SL PRN ×2 (02:17→07:32)
[2023-02-17] MEDS: Ondansetron 4 MG/2 ML SDV IVPUSH PRN ×4 (02:17→20:30)
[2023-02-17] MEDS: hydrOXYzine HCL 100 MG/2 ML SDV IM PRN ×4 (02:18→19:42)
[2023-02-17] MEDS: HYDROmorphone/Normal Saline 6 MG/30 ML PCA Vial IV PRN ×4 (02:32→20:48)
[2023-02-17] MEDS ORDERED: Iopamidol 612 MG/ML 50 ML SDV PO ONE (03:53)
[2023-02-17] MEDS: Magnesium Sulfate/Water 2 GM in Premix Bag 1 BAG IV SCH (03:55)
[2023-02-17 05:10] LABS: BASOPHILS PERCENT AUTO 0.1 % (0.1-1.3); EOSINOPHILS PERCENT AUTO 0.1 % (0.0-5.4); HEMATOCRIT 28.6 % (34.3-46.0); HEMOGLOBIN 9.5 g/dL (11.2-15.5); IMMATURE GRAN ABSOLUTE AUTO 0.06 K/uL (0.00-0.23); IMMATURE GRAN PERCENT AUTO 0.4 % (0.0-0.7); LYMPHOCYTES ABSOLUTE AUTO 1.29 K/uL (0.8-3.3); LYMPHOCYTES PERCENT AUTO 8.8 % (11.4-47.7); MEAN CORPUSCULAR HEMOGLOBIN 31.4 pg (31.6-35.5); MEAN CORPUSCULAR HGB CONC 33.2 g/dL (31.6-35.5); MEAN CORPUSCULAR VOLUME 94.4 fL (81.4-99.0); MONOCYTES ABSOLUTE AUTO 1.03 K/uL (0.20-0.90); MONOCYTES PERCENT AUTO 7.1 % (3.3-12.6); NEUTROPHILS ABSOLUTE AUTO 12.17 K/uL (1.0-7.6); NEUTROPHILS PERCENT AUTO 83.5 % (40.0-78.1); PLATELET COUNT,PLT 368 K/uL (130-375); RED BLOOD CELL COUNT 3.03 M/uL (3.77-5.24); WHITE BLOOD CELL COUNT,WBC 14.6 K/uL (3.2-11.0)
[2023-02-17 05:15] LABS: BASOPHILS ABSOLUTE AUTO 0.01 K/uL (0.00-0.10); EOSINOPHILS ABSOLUTE AUTO 0.02 K/uL (0.00-0.40)
[2023-02-17] MEDS: Meperidine PF 100 MG/ML Syringe IM PRN ×4 (05:41→23:50)
[2023-02-17] MEDS: Acetaminophen Soln 650 MG/20.3 ML UD Cup PO SCH ×4 (05:41→22:51)
[2023-02-17 05:43] LABS: A/G RATIO 0.7 (1.2-2.2); ALANINE AMINOTRANSFERASE,ALT 44 U/L (12-78); ALBUMIN 2.3 g/dL (3.4-5.0); ALKALINE PHOSPHATASE 87 U/L (46-116); ASPARTATE AMNIOTRANSFERASE,AST 37 U/L (15-37); BILIRUBIN TOTAL 0.4 mg/dL (0.2-1.0); BLOOD UREA NITROGEN,BUN 15 mg/dL (7-18); CALCIUM 8.2 mg/dL (8.5-10.1); CARBON DIOXIDE,CO2 32 mmol/L (21-32); CHLORIDE,CL 104 mmol/L (100-108); CREATININE 0.4 mg/dL (0.6-1.0); EST CRCL DRUG DOSING (CG) 143.08 mL/min; ESTIMATED GFR 119 mL/min (>60); GLUCOSE RANDOM 145 mg/dL (74-106); MAGNESIUM 2.5 mg/dL (1.8-2.4); PHOSPHORUS 4.5 mg/dL (2.5-4.9); POTASSIUM,K 4.2 mmol/L (3.6-5.2); PRO B-TYPE NATRIUR PEPT,BNPPRO 684 pg/mL (5-125); PROTEIN TOTAL,TP 5.7 g/dL (6.4-8.2); SODIUM,NA 139 mmol/L (140-148)
[2023-02-17 05:45] LABS: ANION GAP 7.2 mmol/L (5.0-14.0)
[2023-02-17] MEDS: diphenhydrAMINE 50 MG/ML SDV IVPUSH PRN ×4 (05:53→20:31)
[2023-02-17] MEDS ORDERED: Central Total Parenteral Nutrition Bag SCH (07:45)
[2023-02-17] MEDS: Hyoscyamine 0.125 MG Tab.SL SL SCH ×4 (08:00→20:50)
[2023-02-17] MEDS: Citalopram 20 MG Tab PO SCH (08:40)
[2023-02-17] MEDS: Cyclobenzaprine 10 MG Tab PO PRN ×2 (08:44→17:02)
[2023-02-17] MEDS: 1: AA 5%/Calcium/D15W/Lytes 1,000 ML with MVI, Adult with Vitamin K 10 ML, Zinc/Copper/M IV SCH ×6 (09:48→23:57)
[2023-02-17] MEDS: Metoclopramide 10 MG/2 ML SDV IVPUSH PRN ×3 (12:09→23:51)
[2023-02-17] MEDS: Pantoprazole 40 MG Vial IVPUSH SCH (20:49)
[2023-02-18] MEDS: hydrOXYzine HCL 100 MG/2 ML SDV IM PRN (02:23)
[2023-02-18] MEDS: diphenhydrAMINE 50 MG/ML SDV IVPUSH PRN ×3 (02:23→22:47)
[2023-02-18] MEDS: Ondansetron 4 MG/2 ML SDV IVPUSH PRN (04:27)
[2023-02-18] MEDS: HYDROmorphone/Normal Saline 6 MG/30 ML PCA Vial IV PRN ×4 (04:39→23:57)
[2023-02-18 04:58] LABS: HEMATOCRIT 30.8 % (34.3-46.0); MEAN CORPUSCULAR HEMOGLOBIN 31.3 pg (31.6-35.5); MEAN CORPUSCULAR HGB CONC 32.5 g/dL (31.6-35.5); MEAN CORPUSCULAR VOLUME 96.3 fL (81.4-99.0); RED BLOOD CELL COUNT 3.2 M/uL (3.77-5.24); WHITE BLOOD CELL COUNT,WBC 13.7 K/uL (3.2-11.0)
[2023-02-18] MEDS: Acetaminophen Soln 650 MG/20.3 ML UD Cup PO SCH ×3 (05:19→21:00)
[2023-02-18 05:27] LABS: A/G RATIO 0.8 (1.2-2.2); ALANINE AMINOTRANSFERASE,ALT 46 U/L (12-78); ALBUMIN 2.4 g/dL (3.4-5.0); ALKALINE PHOSPHATASE 85 U/L (46-116); ASPARTATE AMNIOTRANSFERASE,AST 39 U/L (15-37); BILIRUBIN TOTAL 0.4 mg/dL (0.2-1.0); BLOOD UREA NITROGEN,BUN 18 mg/dL (7-18); CALCIUM 8.2 mg/dL (8.5-10.1); CARBON DIOXIDE,CO2 32 mmol/L (21-32); CHLORIDE,CL 102 mmol/L (100-108); CREATININE 0.5 mg/dL (0.6-1.0); EST CRCL DRUG DOSING (CG) 114.46 mL/min; ESTIMATED GFR 113 mL/min (>60); GLUCOSE RANDOM 105 mg/dL (74-106); MAGNESIUM 1.4 mg/dL (1.8-2.4); PHOSPHORUS 4.3 mg/dL (2.5-4.9); POTASSIUM,K 3.9 mmol/L (3.6-5.2); PRO B-TYPE NATRIUR PEPT,BNPPRO 423 pg/mL (5-125); PROTEIN TOTAL,TP 5.6 g/dL (6.4-8.2); SODIUM,NA 139 mmol/L (140-148)
[2023-02-18 05:29] LABS: ANION GAP 8.9 mmol/L (5.0-14.0)
[2023-02-18] MEDS: Meperidine PF 100 MG/ML Syringe IM PRN (05:59)
[2023-02-18] MEDS: Metoclopramide 10 MG/2 ML SDV IVPUSH PRN (06:01)
[2023-02-18] MEDS: Hyoscyamine 0.125 MG Tab.SL SL SCH ×4 (08:24→20:52)
[2023-02-18] MEDS: Citalopram 20 MG Tab PO SCH (08:25)
[2023-02-18] MEDS: Morphine 2 MG/ML SYRINGE IVPUSH PRN ×3 (08:57→22:47)
[2023-02-18] MEDS: Magnesium Sulfate/Water 2 GM in Premix Bag 1 BAG IV SCH ×3 (10:00→21:00)
[2023-02-18] MEDS: Haloperidol Lactate 5 MG/ML SDV IVPUSH PRN (12:11)
[2023-02-18] MEDS: 1: AA 5%/Calcium/D15W/Lytes 1,000 ML with MVI, Adult with Vitamin K 10 ML, Zinc/Copper/M IV SCH ×3 (13:19)
[2023-02-18] MEDS: Melatonin 3 MG Tab PO SCH (20:52)
[2023-02-18] MEDS: Pantoprazole 40 MG Vial IVPUSH SCH (20:52)
[2023-02-19] MEDS: Ondansetron 4 MG/2 ML SDV IVPUSH PRN ×2 (01:53→21:32)
[2023-02-19] MEDS: 1: AA 5%/Calcium/D15W/Lytes 1,000 ML with MVI, Adult with Vitamin K 10 ML, Zinc/Copper/M IV SCH ×3 (02:49)
[2023-02-19] MEDS: Haloperidol Lactate 5 MG/ML SDV IVPUSH PRN ×3 (02:54→21:31)
[2023-02-19] MEDS: Magnesium Sulfate/Water 2 GM in Premix Bag 1 BAG IV SCH ×4 (03:02→21:30)
[2023-02-19] MEDS: HYDROmorphone/Normal Saline 6 MG/30 ML PCA Vial IV PRN ×3 (04:44→18:00)
[2023-02-19 04:59] LABS: HEMATOCRIT 31.3 % (34.3-46.0); HEMOGLOBIN 10.3 g/dL (11.2-15.5); MEAN CORPUSCULAR HGB CONC 32.9 g/dL (31.6-35.5); MEAN CORPUSCULAR VOLUME 94.3 fL (81.4-99.0); RED BLOOD CELL COUNT 3.32 M/uL (3.77-5.24); WHITE BLOOD CELL COUNT,WBC 15.6 K/uL (3.2-11.0)
[2023-02-19 05:18] LABS: A/G RATIO 0.7 (1.2-2.2); ALANINE AMINOTRANSFERASE,ALT 43 U/L (12-78); ALBUMIN 2.3 g/dL (3.4-5.0); ALKALINE PHOSPHATASE 86 U/L (46-116); ASPARTATE AMNIOTRANSFERASE,AST 26 U/L (15-37); BILIRUBIN TOTAL 0.3 mg/dL (0.2-1.0); BLOOD UREA NITROGEN,BUN 17 mg/dL (7-18); CALCIUM 8.2 mg/dL (8.5-10.1); CARBON DIOXIDE,CO2 32 mmol/L (21-32); CHLORIDE,CL 101 mmol/L (100-108); CREATININE 0.4 mg/dL (0.6-1.0); EST CRCL DRUG DOSING (CG) 143.08 mL/min; ESTIMATED GFR 119 mL/min (>60); GLUCOSE RANDOM 155 mg/dL (74-106); PHOSPHORUS 4.8 mg/dL (2.5-4.9); POTASSIUM,K 4.3 mmol/L (3.6-5.2); PROTEIN TOTAL,TP 5.7 g/dL (6.4-8.2); SODIUM,NA 136 mmol/L (140-148)
[2023-02-19 05:22] LABS: ANION GAP 7.3 mmol/L (5.0-14.0)
[2023-02-19] MEDS: Hyoscyamine 0.125 MG Tab.SL SL SCH ×4 (06:07→19:42)
[2023-02-19] MEDS: Acetaminophen Soln 650 MG/20.3 ML UD Cup PO SCH ×3 (06:07→21:32)
[2023-02-19] MEDS: Citalopram 20 MG Tab PO SCH (08:29)
[2023-02-19] MEDS: Morphine 2 MG/ML SYRINGE IVPUSH PRN ×3 (10:01→19:39)
[2023-02-19] MEDS ORDERED: 1: AA 5%/Calcium/D15W/Lytes 1,000 ML with MVI, Adult with Vitamin K 10 ML, Zinc/Copper/M IV SCH ×9 (10:30→16:00)
[2023-02-19] MEDS: diphenhydrAMINE 50 MG/ML SDV IVPUSH PRN ×2 (15:55→19:39)
[2023-02-19] MEDS: Pantoprazole 40 MG Vial IVPUSH SCH (21:31)
[2023-02-19] MEDS: Melatonin 3 MG Tab PO SCH (21:33)
[2023-02-20] MEDS: Morphine 2 MG/ML SYRINGE IVPUSH PRN (00:57)
[2023-02-20] MEDS: diphenhydrAMINE 50 MG/ML SDV IVPUSH PRN ×5 (00:57→21:36)
[2023-02-20] MEDS: Cyclobenzaprine 10 MG Tab PO PRN ×3 (02:26→19:48)
[2023-02-20] MEDS: HYDROmorphone/Normal Saline 6 MG/30 ML PCA Vial IV PRN ×4 (04:00→19:25)
[2023-02-20] MEDS: Magnesium Sulfate/Water 2 GM in Premix Bag 1 BAG IV SCH ×4 (04:02→21:25)
[2023-02-20] MEDS: Haloperidol Lactate 5 MG/ML SDV IVPUSH PRN ×2 (04:07→21:31)
[2023-02-20 04:49] LABS: HEMATOCRIT 33.3 % (34.3-46.0); HEMOGLOBIN 10.9 g/dL (11.2-15.5); MEAN CORPUSCULAR HEMOGLOBIN 30.8 pg (31.6-35.5); MEAN CORPUSCULAR HGB CONC 32.7 g/dL (31.6-35.5); MEAN CORPUSCULAR VOLUME 94.1 fL (81.4-99.0); RED BLOOD CELL COUNT 3.54 M/uL (3.77-5.24); WHITE BLOOD CELL COUNT,WBC 15.4 K/uL (3.2-11.0)
[2023-02-20 05:09] LABS: A/G RATIO 0.6 (1.2-2.2); ALANINE AMINOTRANSFERASE,ALT 47 U/L (12-78); ALBUMIN 2.2 g/dL (3.4-5.0); ALKALINE PHOSPHATASE 97 U/L (46-116); ASPARTATE AMNIOTRANSFERASE,AST 27 U/L (15-37); BILIRUBIN TOTAL 0.3 mg/dL (0.2-1.0); BLOOD UREA NITROGEN,BUN 21 mg/dL (7-18); CALCIUM 8.2 mg/dL (8.5-10.1); CARBON DIOXIDE,CO2 29 mmol/L (21-32); CHLORIDE,CL 100 mmol/L (100-108); CREATININE 0.4 mg/dL (0.6-1.0); EST CRCL DRUG DOSING (CG) 143.08 mL/min; ESTIMATED GFR 119 mL/min (>60); GLUCOSE RANDOM 143 mg/dL (74-106); PHOSPHORUS 4.7 mg/dL (2.5-4.9); POTASSIUM,K 4.4 mmol/L (3.6-5.2); SODIUM,NA 137 mmol/L (140-148)
[2023-02-20 05:19] LABS: ANION GAP 12.4 mmol/L (5.0-14.0)
[2023-02-20] MEDS: Acetaminophen Soln 650 MG/20.3 ML UD Cup PO SCH ×3 (06:15→21:25)
[2023-02-20] MEDS ORDERED: Central Total Parenteral Nutrition Bag SCH (07:15)
[2023-02-20] MEDS: Hyoscyamine 0.125 MG Tab.SL SL SCH ×4 (08:22→19:46)
[2023-02-20] MEDS: Magnesium Hydroxide 400 MG/5 ML Susp 30 ML Cup PO SCH ×2 (08:27→21:27)
[2023-02-20] MEDS: Citalopram 20 MG Tab PO SCH (08:27)
[2023-02-20] MEDS: 1: AA 5%/Calcium/D15W/Lytes 1,000 ML with MVI, Adult with Vitamin K 10 ML, Zinc/Copper/M IV SCH ×3 (08:32)
[2023-02-20] MEDS: Metoclopramide 10 MG/2 ML SDV IVPUSH PRN ×2 (10:21→23:14)
[2023-02-20] MEDS: Ondansetron 4 MG/2 ML SDV IVPUSH PRN (15:42)
[2023-02-20] MEDS: Melatonin 3 MG Tab PO SCH (21:24)
[2023-02-20] MEDS: Pantoprazole 40 MG Delayed-Release Granules 1 Packet PO SCH (21:25)
[2023-02-21] MEDS: Morphine 2 MG/ML SYRINGE IVPUSH PRN ×3 (01:25→11:23)
[2023-02-21] MEDS: HYDROmorphone/Normal Saline 6 MG/30 ML PCA Vial IV PRN ×4 (01:26→20:51)
[2023-02-21] MEDS: Haloperidol Lactate 5 MG/ML SDV IVPUSH PRN (02:37)
[2023-02-21] MEDS: Cyclobenzaprine 10 MG Tab PO PRN ×3 (04:49→20:50)
[2023-02-21] MEDS: Magnesium Sulfate/Water 2 GM in Premix Bag 1 BAG IV SCH (04:49)
[2023-02-21] MEDS: diphenhydrAMINE 50 MG/ML SDV IVPUSH PRN ×3 (04:49→23:29)
[2023-02-21] MEDS: Acetaminophen Soln 650 MG/20.3 ML UD Cup PO SCH ×4 (04:50→22:05)
[2023-02-21] MEDS: Hyoscyamine 0.125 MG Tab.SL SL SCH ×4 (07:57→19:14)
[2023-02-21] MEDS: Metoclopramide 10 MG/2 ML SDV IVPUSH PRN ×2 (08:30→18:25)
[2023-02-21] MEDS: Citalopram 20 MG Tab PO SCH (08:39)
[2023-02-21] MEDS: Magnesium Hydroxide 400 MG/5 ML Susp 30 ML Cup PO SCH ×2 (10:09→20:27)
[2023-02-21] MEDS: 1: AA 5%/Calcium/D15W/Lytes 1,000 ML with MVI, Adult with Vitamin K 10 ML, Zinc/Copper/M IV SCH ×3 (10:30)
[2023-02-21] MEDS: Pantoprazole 40 MG Delayed-Release Granules 1 Packet PO SCH (20:27)
[2023-02-21] MEDS: Melatonin 3 MG Tab PO SCH (20:27)
[2023-02-22] MEDS: hydrOXYzine HCL 100 MG/2 ML SDV IM PRN ×4 (01:34→20:32)
[2023-02-22] MEDS: HYDROmorphone/Normal Saline 6 MG/30 ML PCA Vial IV PRN (02:04)
[2023-02-22 04:15] LABS: BASOPHILS ABSOLUTE AUTO 0.08 K/uL (0.00-0.10); BASOPHILS PERCENT AUTO 0.5 % (0.1-1.3); EOSINOPHILS ABSOLUTE AUTO 0.57 K/uL (0.00-0.40); EOSINOPHILS PERCENT AUTO 3.3 % (0.0-5.4); HEMATOCRIT 29.8 % (34.3-46.0); HEMOGLOBIN 9.9 g/dL (11.2-15.5); IMMATURE GRAN ABSOLUTE AUTO 0.12 K/uL (0.00-0.23); IMMATURE GRAN PERCENT AUTO 0.7 % (0.0-0.7); LYMPHOCYTES PERCENT AUTO 15.6 % (11.4-47.7); MEAN CORPUSCULAR HEMOGLOBIN 31.2 pg (31.6-35.5); MEAN CORPUSCULAR HGB CONC 33.2 g/dL (31.6-35.5); MONOCYTES ABSOLUTE AUTO 1.76 K/uL (0.20-0.90); MONOCYTES PERCENT AUTO 10.2 % (3.3-12.6); NEUTROPHILS ABSOLUTE AUTO 12.09 K/uL (1.0-7.6); NEUTROPHILS PERCENT AUTO 69.7 % (40.0-78.1); PLATELET COUNT,PLT 734 K/uL (130-375); RED BLOOD CELL COUNT 3.17 M/uL (3.77-5.24); WHITE BLOOD CELL COUNT,WBC 17.3 K/uL (3.2-11.0)
[2023-02-22 04:38] LABS: A/G RATIO 0.5 (1.2-2.2); ALANINE AMINOTRANSFERASE,ALT 46 U/L (12-78); ALKALINE PHOSPHATASE 116 U/L (46-116); ASPARTATE AMNIOTRANSFERASE,AST 30 U/L (15-37); BILIRUBIN TOTAL 0.2 mg/dL (0.2-1.0); BLOOD UREA NITROGEN,BUN 23 mg/dL (7-18); CALCIUM 7.9 mg/dL (8.5-10.1); CARBON DIOXIDE,CO2 29 mmol/L (21-32); CHLORIDE,CL 100 mmol/L (100-108); CREATININE 0.4 mg/dL (0.6-1.0); EST CRCL DRUG DOSING (CG) 143.08 mL/min; ESTIMATED GFR 119 mL/min (>60); GLUCOSE RANDOM 156 mg/dL (74-106); MAGNESIUM 1.8 mg/dL (1.8-2.4); PHOSPHORUS 4.4 mg/dL (2.5-4.9); POTASSIUM,K 4.3 mmol/L (3.6-5.2); PROTEIN TOTAL,TP 5.9 g/dL (6.4-8.2); SODIUM,NA 138 mmol/L (140-148)
[2023-02-22 04:40] LABS: ANION GAP 13.3 mmol/L (5.0-14.0)
[2023-02-22] MEDS: Cyclobenzaprine 10 MG Tab PO PRN (05:21)
[2023-02-22] MEDS: Acetaminophen Soln 650 MG/20.3 ML UD Cup PO SCH ×4 (05:22→23:36)
[2023-02-22] MEDS: Hyoscyamine 0.125 MG Tab.SL SL SCH ×4 (07:22→21:27)
[2023-02-22] MEDS: diphenhydrAMINE 50 MG/ML SDV IVPUSH PRN ×2 (07:29→15:17)
[2023-02-22] MEDS ORDERED: oxyCODONE 5 MG Tab PO PRN (08:21)
[2023-02-22] MEDS: Citalopram 20 MG Tab PO SCH (08:47)
[2023-02-22] MEDS: Magnesium Hydroxide 400 MG/5 ML Susp 30 ML Cup PO SCH ×2 (08:48→21:27)
[2023-02-22] MEDS ORDERED: Central Total Parenteral Nutrition Bag SCH (09:30)
[2023-02-22] MEDS: 1: AA 5%/Calcium/D15W/Lytes 1,000 ML with MVI, Adult with Vitamin K 10 ML, Zinc/Copper/M IV SCH ×3 (09:49)
[2023-02-22] MEDS ORDERED: Bacitracin Oint 28.35 GM Tube TOP PRN (12:17)
[2023-02-22] MEDS: oxyCODONE 5 MG Tab PO PRN ×2 (13:02→18:18)
[2023-02-22] MEDS ORDERED: Dextrose 5%-Lactated Ringers 1,000 ML IV SCH (15:00)
[2023-02-22] MEDS: Ondansetron 4 MG/2 ML SDV IVPUSH PRN ×2 (16:56→21:58)
[2023-02-22] MEDS: Metoclopramide 10 MG/2 ML SDV IVPUSH PRN (18:19)
[2023-02-22 18:44] VITALS: BP 99/65; PULSE 95
[2023-02-22] MEDS: Melatonin 3 MG Tab PO SCH (21:27)
[2023-02-22] MEDS: Pantoprazole 40 MG Delayed-Release Granules 1 Packet PO SCH ×2 (21:28→23:37)
[2023-02-22] MEDS ORDERED: HYDROmorphone 2 MG Tab PO PRN (21:59)
== END 2023-02-22 23:05 | disposition left against medical advice (07) | DRG 220 ==
LOC: JP.ED 16:59 → JP.MS 19:22 → JP.ICU 02-13 17:31 → JP.MS 02-21 11:50
PROVIDERS: ADMIT Surgery; ATTEND Internal Medicine
PROC: 0W9B30Z Drainage of Left Pleural Cavity with Drainage Device, Percutaneous Approach (ICD-10-PCS; 2023-02-04)
PROC: 0D758ZZ Dilation of Esophagus, Via Natural or Artificial Opening Endoscopic (ICD-10-PCS; 2023-02-09)
PROC: 0D160ZA Bypass Stomach to Jejunum, Open Approach (ICD-10-PCS; principal; 2023-02-13)
PROC: 3E0M05Z Introduction of Adhesion Barrier into Peritoneal Cavity, Open Approach (ICD-10-PCS; 2023-02-13)
PROC: 0DB80ZX Excision of Small Intestine, Open Approach, Diagnostic (ICD-10-PCS; 2023-02-13)
PROC: 0DTL0ZZ Resection of Transverse Colon, Open Approach (ICD-10-PCS; 2023-02-13)
PROC: 0DHA0UZ Insertion of Feeding Device into Jejunum, Open Approach (ICD-10-PCS; 2023-02-13)
PROC: 0WQF0ZZ Repair Abdominal Wall, Open Approach (ICD-10-PCS; 2023-02-16)
DX: K91.89 Other postprocedural complications and disorders of digestive system (principal); E87.6 Hypokalemia; I10 Essential (primary) hypertension; K21.9 Gastro-esophageal reflux disease without esophagitis; F41.9 Anxiety disorder, unspecified; F32.A Depression, unspecified; E44.0 Moderate protein-calorie malnutrition; E86.0 Dehydration; E83.42 Hypomagnesemia; D64.9 Anemia, unspecified; Z90.89 Acquired absence of other organs; Z98.890 Other specified postprocedural states; Z90.710 Acquired absence of both cervix and uterus; Z98.84 Bariatric surgery status; Z87.442 Personal history of urinary calculi; Z79.899 Other long term (current) drug therapy; Z90.721 Acquired absence of ovaries, unilateral; Z90.81 Acquired absence of spleen; Z90.49 Acquired absence of other specified parts of digestive tract; Z68.22 Body mass index [BMI] 22.0-22.9, adult
CPT/HCPCS: 36415; 36430; 71045; 71045-26; 74018; 74018-26; 74177; 74240; 74240-26; 74248; 80048; 80053; 81001; 82607; 83550; 83605; 83690; 83735; 83880; 84100; 84145; 85025; 85027; 86140; 86850; 86900; 86901; 86920; 86922; 87040; 88305; 88307; 96361; 96374; 96375; 96376; 97110-GO; 97110-GP; 97161-GP; 97165-GO; 97530-GP; 99222; 99232; 99284-25; 99285; A9270-GY; C1726; C9113; J0131; J0171; J0330; J0694; J1100; J1170; J1200; J1630; J2020; J2060; J2175; J2185; J2250; J2270; J2405; J2543; J2704; J2710; J2765; J2795; J3010; J3410; J3411; J3475; J3480; J3490; J7030; J7050; J7120; J7121; P9016; P9047; Q0162; Q9967; U0002

== ENCOUNTER 2023-02-23 10:11 | Inpatient (IN) | payer BC ==
[2023-02-23] MEDS ORDERED: droPERidol 5 MG/2 ML SDV IVPUSH ONE (10:43)
[2023-02-23] MEDS ORDERED: HYDROmorphone 0.5 MG/0.5 ML Syringe IVPUSH ONE (10:43)
[2023-02-23] MEDS ORDERED: Lactated Ringers 1,000 ML IV ONE (10:49)
[2023-02-23 11:02] LABS: BASOPHILS ABSOLUTE AUTO 0.07 K/uL (0.00-0.10); BASOPHILS PERCENT AUTO 0.3 % (0.1-1.3); HEMOGLOBIN 11.4 g/dL (11.2-15.5); IMMATURE GRAN ABSOLUTE AUTO 0.15 K/uL (0.00-0.23); IMMATURE GRAN PERCENT AUTO 0.7 % (0.0-0.7); LYMPHOCYTES ABSOLUTE AUTO 1.34 K/uL (0.8-3.3); LYMPHOCYTES PERCENT AUTO 6.5 % (11.4-47.7); MEAN CORPUSCULAR HEMOGLOBIN 31.2 pg (31.6-35.5); MEAN CORPUSCULAR HGB CONC 34.5 g/dL (31.6-35.5); MEAN CORPUSCULAR VOLUME 90.4 fL (81.4-99.0); MONOCYTES PERCENT AUTO 4.4 % (3.3-12.6); NEUTROPHILS ABSOLUTE AUTO 18.07 K/uL (1.0-7.6); NEUTROPHILS PERCENT AUTO 88.1 % (40.0-78.1); PLATELET COUNT,PLT 864 K/uL (130-375); RED BLOOD CELL COUNT 3.65 M/uL (3.77-5.24); WHITE BLOOD CELL COUNT,WBC 20.5 K/uL (3.2-11.0)
[2023-02-23 11:03] LABS: EOSINOPHILS ABSOLUTE AUTO 0.01 K/uL (0.00-0.40)
[2023-02-23] MEDS ORDERED: Ondansetron 4 MG/2 ML SDV IVPUSH ONE (11:30)
[2023-02-23 11:37] LABS: A/G RATIO 0.5 (1.2-2.2); ALANINE AMINOTRANSFERASE,ALT 63 U/L (12-78); ALBUMIN 2.5 g/dL (3.4-5.0); ALKALINE PHOSPHATASE 136 U/L (46-116); ANION GAP 14.2 mmol/L (5.0-14.0); ASPARTATE AMNIOTRANSFERASE,AST 56 U/L (15-37); BILIRUBIN TOTAL 0.4 mg/dL (0.2-1.0); BLOOD UREA NITROGEN,BUN 24 mg/dL (7-18); CALCIUM 8.7 mg/dL (8.5-10.1); CARBON DIOXIDE,CO2 26 mmol/L (21-32); CHLORIDE,CL 98 mmol/L (100-108); CREATININE 0.6 mg/dL (0.6-1.0); EST CRCL DRUG DOSING (CG) 94.71 mL/min; ESTIMATED GFR 108 mL/min (>60); GLUCOSE RANDOM 140 mg/dL (74-106); POTASSIUM,K 3.2 mmol/L (3.6-5.2); PROTEIN TOTAL,TP 7.1 g/dL (6.4-8.2); SODIUM,NA 135 mmol/L (140-148); TROPONIN I HIGH SENSITIVITY 6.9 pg/mL (<=60.3)
[2023-02-23] MEDS ORDERED: Hyoscyamine 0.125 MG Tab.SL SL ONE (13:04)
[2023-02-23] MEDS ORDERED: Morphine 4 MG/ML Syringe IVPUSH ONE (15:05)
[2023-02-23] MEDS ORDERED: Sodium Chloride 0.9% 50 ML IV ONE (15:16)
[2023-02-23] MEDS ORDERED: Iopamidol 612 MG/ML 100 ML Bottle IV ONE (15:16)
[2023-02-23] MEDS ORDERED: Sodium Chloride 0.9% 10 ML Syringe FLUSH ONE (15:16)
[2023-02-23] MEDS: Ondansetron 4 MG/2 ML SDV IVPUSH PRN ×2 (15:17→22:39)
[2023-02-23] MEDS ORDERED: Acetaminophen Soln 650 MG/20.3 ML UD Cup PO PRN (17:11)
[2023-02-23 17:28] LABS: APPEARANCE,URINE CLEAR (CLEAR); BILIRUBIN,URINE NEGATIVE (NEGATIVE); COLOR,URINE YELLOW (YELLOW); GLUCOSE,URINE NEGATIVE (NEGATIVE); KETONES,URINE NEGATIVE (NEGATIVE); LEUKOCYTE ESTERASE,URINE NEGATIVE (NEGATIVE); NITRITE,URINE NEGATIVE (NEGATIVE); OCCULT BLOOD,URINE TRACE-INTACT (NEGATIVE); PROTEIN,URINE 30 mg/dL (NEGATIVE)
[2023-02-23] MEDS: Lactated Ringers 1,000 ML IV SCH (17:29)
[2023-02-23 17:33] LABS: AMPHETAMINES SCREEN, URINE NEGATIVE (NEGATIVE); BARBITURATE SCREEN,URINE NEGATIVE (NEGATIVE); BENZODIAZEPINES SCREEN,URINE NEGATIVE (NEGATIVE); METHADONE SCREEN, URINE PRESUMPTIVE POSITIVE (NEGATIVE); METHAMPHETAMINES SCREEN, URINE NEGATIVE (NEGATIVE); OXYCODONE SCREEN,URINE PRESUMPTIVE POSITIVE (NEGATIVE); PROPOXYPHENE SCREEN,URINE NEGATIVE (NEGATIVE); THC SCREEN,URINE 50 NG/ML NEGATIVE (NEGATIVE)
[2023-02-23 17:35] LABS: RBC,URINE 0-5 (0-5)
[2023-02-23] MEDS: Morphine 4 MG/ML Syringe IVPUSH PRN ×3 (17:35→22:02)
[2023-02-23 17:36] LABS: AMORPHOUS SEDIMENT,URINE NOT SEEN; BACTERIA,URINE MANY; EPITHELIAL CELLS,URINE RARE; MUCUS,URINE NOT SEEN
[2023-02-23] MEDS: Meropenem 1 GM in Sodium Chloride 0.9% 100 ML IV SCH (20:49)
[2023-02-23] MEDS: Levofloxacin/Dextrose 5%-Water 750 MG in Premix Bag 1 BAG IV SCH (21:33)
[2023-02-23 22:10] LABS: CORONAVIRUS COVID-19 NAA NEGATIVE (NEGATIVE); INFLUENZA A NAA NEGATIVE (NEGATIVE); INFLUENZA B NAA NEGATIVE (NEGATIVE); RESPIRATORY SYNCYTIAL VIR NAA NEGATIVE (NEGATIVE)
[2023-02-24] MEDS: Morphine 4 MG/ML Syringe IVPUSH PRN ×11 (00:26→23:23)
[2023-02-24] MEDS: Meropenem 1 GM in Sodium Chloride 0.9% 100 ML IV SCH ×3 (04:19→19:30)
[2023-02-24] MEDS: Ondansetron 4 MG/2 ML SDV IVPUSH PRN ×3 (04:53→21:23)
[2023-02-24] MEDS: Lactated Ringers 1,000 ML IV SCH ×2 (05:00→15:34)
[2023-02-24] MEDS: Citalopram 20 MG Tab PO SCH (09:35)
[2023-02-24] MEDS: Pantoprazole 40 MG Tab.CR PO SCH (09:35)
[2023-02-24] MEDS: Levofloxacin/Dextrose 5%-Water 750 MG in Premix Bag 1 BAG IV SCH (21:30)
[2023-02-25] MEDS: Morphine 4 MG/ML Syringe IVPUSH PRN ×4 (01:26→08:50)
[2023-02-25] MEDS: Ondansetron 4 MG/2 ML SDV IVPUSH PRN (03:42)
[2023-02-25] MEDS: Lactated Ringers 1,000 ML IV SCH (03:45)
[2023-02-25] MEDS: Meropenem 1 GM in Sodium Chloride 0.9% 100 ML IV SCH ×3 (03:47→19:46)
[2023-02-25 04:35] LABS: HEMATOCRIT 29.5 % (34.3-46.0); HEMOGLOBIN 9.9 g/dL (11.2-15.5); MEAN CORPUSCULAR HEMOGLOBIN 31.4 pg (31.6-35.5); MEAN CORPUSCULAR HGB CONC 33.6 g/dL (31.6-35.5); MEAN CORPUSCULAR VOLUME 93.7 fL (81.4-99.0); RED BLOOD CELL COUNT 3.15 M/uL (3.77-5.24); WHITE BLOOD CELL COUNT,WBC 13.4 K/uL (3.2-11.0)
[2023-02-25 04:57] LABS: A/G RATIO 0.5 (1.2-2.2); ALANINE AMINOTRANSFERASE,ALT 61 U/L (12-78); ALKALINE PHOSPHATASE 114 U/L (46-116); ASPARTATE AMNIOTRANSFERASE,AST 28 U/L (15-37); BILIRUBIN TOTAL 0.4 mg/dL (0.2-1.0); BLOOD UREA NITROGEN,BUN 14 mg/dL (7-18); CALCIUM 8.1 mg/dL (8.5-10.1); CARBON DIOXIDE,CO2 29 mmol/L (21-32); CHLORIDE,CL 98 mmol/L (100-108); CREATINE KINASE,CK 145 U/L (26-192); CREATININE 0.5 mg/dL (0.6-1.0); EST CRCL DRUG DOSING (CG) 114.04 mL/min; ESTIMATED GFR 113 mL/min (>60); GLUCOSE RANDOM 96 mg/dL (74-106); MAGNESIUM 1.5 mg/dL (1.8-2.4); PHOSPHORUS 3.4 mg/dL (2.5-4.9); POTASSIUM,K 3.5 mmol/L (3.6-5.2); SODIUM,NA 136 mmol/L (140-148)
[2023-02-25 05:09] LABS: ANION GAP 12.5 mmol/L (5.0-14.0)
[2023-02-25] MEDS ORDERED: Meropenem 500 MG SDV ONE (06:59)
[2023-02-25] MEDS ORDERED: Lidocaine 1% with EPINEPHrine 1:100,000 50 ML MDV ONE (06:59)
[2023-02-25] MEDS ORDERED: Bupivacaine 0.5% 50 ML MDV ONE (06:59)
[2023-02-25] MEDS ORDERED: Ketamine 16 MG in Sodium Chloride 0.9% 19.84 ML IV SCH (09:00)
[2023-02-25] MEDS ORDERED: Ketamine 500 MG/5 ML MDV IV SCH (09:00)
[2023-02-25] MEDS: Citalopram 20 MG Tab PO SCH ×2 (09:37→16:17)
[2023-02-25] MEDS: Pantoprazole 40 MG Tab.CR PO SCH (09:37)
[2023-02-25] MEDS ORDERED: fentaNYL 250 MCG/5 ML SDV ONE (09:47)
[2023-02-25] MEDS ORDERED: Glycopyrrolate 0.2 MG/ML 5 ML MDV ONE (09:47)
[2023-02-25] MEDS ORDERED: Neostigmine Methylsulfate 1 MG/ML 5 ML Syringe ONE (09:47)
[2023-02-25] MEDS ORDERED: Dexamethasone 4 MG/ML SDV ONE (09:47)
[2023-02-25] MEDS ORDERED: Rocuronium 50 MG/5 ML Vial ONE (09:47)
[2023-02-25] MEDS ORDERED: Propofol 200 MG/20 ML SDV ONE (09:47)
[2023-02-25] MEDS ORDERED: Ondansetron 4 MG/2 ML SDV ONE (09:47)
[2023-02-25] MEDS ORDERED: Lactated Ringers 1,000 ML ONE (10:48)
[2023-02-25] MEDS ORDERED: Linezolid 600 MG/300 ML Premix Bag IRR ONE (10:55)
[2023-02-25] MEDS: Acetaminophen 1,000 MG in Premix Bag 1 BAG IV SCH ×3 (12:08→23:42)
[2023-02-25] MEDS ORDERED: Naloxone 0.4 MG/ML SDV IV PRN (12:15)
[2023-02-25] MEDS: HYDROmorphone/Normal Saline 6 MG/30 ML PCA Vial IV PRN ×3 (12:27→20:58)
[2023-02-25] MEDS ORDERED: Morphine 10 MG/ML Syringe IVPUSH ONE (12:57)
[2023-02-25] MEDS: Cyclobenzaprine 10 MG Tab PO PRN (15:24)
[2023-02-25] MEDS: Potassium Chloride 10 MEQ in Premix Bag 1 BAG IV SCH ×4 (15:27→18:54)
[2023-02-25] MEDS: Magnesium Sulfate/Water 2 GM in Premix Bag 1 BAG IV SCH ×2 (15:56→20:12)
[2023-02-25] MEDS: Dextrose 5%-Lactated Ringers 1,000 ML IV SCH (16:46)
[2023-02-25] MEDS: hydrOXYzine HCl 25 MG Tab PO PRN (17:50)
[2023-02-25] MEDS: Hyoscyamine 0.125 MG Tab.SL SL PRN (19:50)
[2023-02-25] MEDS: Levofloxacin/Dextrose 5%-Water 750 MG in Premix Bag 1 BAG IV SCH (20:13)
[2023-02-26] MEDS: Magnesium Sulfate/Water 2 GM in Premix Bag 1 BAG IV SCH ×4 (03:22→23:19)
[2023-02-26] MEDS: Meropenem 1 GM in Sodium Chloride 0.9% 100 ML IV SCH ×3 (03:22→20:28)
[2023-02-26] MEDS: Dextrose 5%-Lactated Ringers 1,000 ML IV SCH ×2 (04:51→14:07)
[2023-02-26] MEDS: HYDROmorphone/Normal Saline 6 MG/30 ML PCA Vial IV PRN ×4 (04:52→18:33)
[2023-02-26] MEDS: Ondansetron 4 MG/2 ML SDV IVPUSH PRN ×3 (04:55→20:31)
[2023-02-26 05:40] LABS: HEMATOCRIT 26.6 % (34.3-46.0); HEMOGLOBIN 8.9 g/dL (11.2-15.5); MEAN CORPUSCULAR HEMOGLOBIN 31.1 pg (31.6-35.5); MEAN CORPUSCULAR HGB CONC 33.5 g/dL (31.6-35.5); RED BLOOD CELL COUNT 2.86 M/uL (3.77-5.24); WHITE BLOOD CELL COUNT,WBC 14.4 K/uL (3.2-11.0)
[2023-02-26] MEDS: Acetaminophen 1,000 MG in Premix Bag 1 BAG IV SCH ×2 (05:45→12:16)
[2023-02-26 05:51] LABS: CALCIUM 8.1 mg/dL (8.5-10.1); CREATININE 0.5 mg/dL (0.6-1.0); EST CRCL DRUG DOSING (CG) 115.17 mL/min; POTASSIUM,K 3.9 mmol/L (3.6-5.2)
[2023-02-26 05:53] LABS: ANION GAP 10.9 mmol/L (5.0-14.0)
[2023-02-26] MEDS: Pantoprazole 40 MG Tab.CR PO SCH (07:28)
[2023-02-26] MEDS: Citalopram 20 MG Tab PO SCH (09:02)
[2023-02-26] MEDS: Hyoscyamine 0.125 MG Tab.SL SL PRN ×2 (09:44→17:25)
[2023-02-26] MEDS: Cyclobenzaprine 10 MG Tab PO PRN ×2 (11:37→20:28)
[2023-02-26] MEDS: Albumin Human 100 ML IV SCH (14:05)
[2023-02-26] MEDS: Benzocaine/Cetylpyridinium/Menthol Lozenge MUCMEM PRN (14:09)
[2023-02-26] MEDS: hydrOXYzine HCl 25 MG Tab PO PRN (14:20)
[2023-02-26] MEDS: 1: AA 5%/Calcium/D15W/Lytes 1,000 ML with MVI, Adult with Vitamin K 10 ML, Zinc/Copper/M IV SCH ×3 (14:22)
[2023-02-26] MEDS: Acetaminophen 500 MG Tab PO SCH ×2 (17:23→23:19)
[2023-02-26] MEDS: Levofloxacin/Dextrose 5%-Water 750 MG in Premix Bag 1 BAG IV SCH (21:37)
[2023-02-27] MEDS: HYDROmorphone/Normal Saline 6 MG/30 ML PCA Vial IV PRN ×6 (00:58→22:01)
[2023-02-27] MEDS: hydrOXYzine HCl 25 MG Tab PO PRN ×4 (00:58→21:05)
[2023-02-27] MEDS: 1: AA 5%/Calcium/D15W/Lytes 1,000 ML with MVI, Adult with Vitamin K 10 ML, Zinc/Copper/M IV SCH ×6 (03:17→15:23)
[2023-02-27] MEDS: Hyoscyamine 0.125 MG Tab.SL SL PRN ×4 (03:18→23:24)
[2023-02-27] MEDS: Ondansetron 4 MG/2 ML SDV IVPUSH PRN (03:51)
[2023-02-27] MEDS: Meropenem 1 GM in Sodium Chloride 0.9% 100 ML IV SCH ×3 (03:51→20:22)
[2023-02-27 04:44] LABS: BASOPHILS ABSOLUTE AUTO 0.05 K/uL (0.00-0.10); BASOPHILS PERCENT AUTO 0.5 % (0.1-1.3); EOSINOPHILS ABSOLUTE AUTO 0.14 K/uL (0.00-0.40); EOSINOPHILS PERCENT AUTO 1.3 % (0.0-5.4); HEMATOCRIT 24.4 % (34.3-46.0); IMMATURE GRAN ABSOLUTE AUTO 0.05 K/uL (0.00-0.23); IMMATURE GRAN PERCENT AUTO 0.5 % (0.0-0.7); LYMPHOCYTES ABSOLUTE AUTO 3.22 K/uL (0.8-3.3); LYMPHOCYTES PERCENT AUTO 30.2 % (11.4-47.7); MEAN CORPUSCULAR HEMOGLOBIN 31.5 pg (31.6-35.5); MEAN CORPUSCULAR HGB CONC 32.8 g/dL (31.6-35.5); MEAN CORPUSCULAR VOLUME 96.1 fL (81.4-99.0); MONOCYTES ABSOLUTE AUTO 1.37 K/uL (0.20-0.90); MONOCYTES PERCENT AUTO 12.8 % (3.3-12.6); NEUTROPHILS ABSOLUTE AUTO 5.84 K/uL (1.0-7.6); NEUTROPHILS PERCENT AUTO 54.7 % (40.0-78.1); PLATELET COUNT,PLT 727 K/uL (130-375); RED BLOOD CELL COUNT 2.54 M/uL (3.77-5.24); WHITE BLOOD CELL COUNT,WBC 10.7 K/uL (3.2-11.0)
[2023-02-27] MEDS: Cyclobenzaprine 10 MG Tab PO PRN ×3 (05:02→22:05)
[2023-02-27] MEDS: Magnesium Sulfate/Water 2 GM in Premix Bag 1 BAG IV SCH ×4 (05:03→21:58)
[2023-02-27] MEDS: Acetaminophen 500 MG Tab PO SCH (05:11)
[2023-02-27 05:12] LABS: A/G RATIO 0.7 (1.2-2.2); ALANINE AMINOTRANSFERASE,ALT 52 U/L (12-78); ALBUMIN 2.1 g/dL (3.4-5.0); ALKALINE PHOSPHATASE 116 U/L (46-116); ASPARTATE AMNIOTRANSFERASE,AST 19 U/L (15-37); BILIRUBIN TOTAL 0.2 mg/dL (0.2-1.0); BLOOD UREA NITROGEN,BUN 16 mg/dL (7-18); CALCIUM 7.6 mg/dL (8.5-10.1); CARBON DIOXIDE,CO2 30 mmol/L (21-32); CHLORIDE,CL 104 mmol/L (100-108); CREATININE 0.5 mg/dL (0.6-1.0); EST CRCL DRUG DOSING (CG) 118.43 mL/min; ESTIMATED GFR 113 mL/min (>60); GLUCOSE RANDOM 111 mg/dL (74-106); PHOSPHORUS 3.9 mg/dL (2.5-4.9); PROTEIN TOTAL,TP 5.1 g/dL (6.4-8.2); SODIUM,NA 138 mmol/L (140-148)
[2023-02-27] MEDS ORDERED: Central Total Parenteral Nutrition Bag SCH (07:30)
[2023-02-27] MEDS: Pantoprazole 40 MG Tab.CR PO SCH (07:35)
[2023-02-27] MEDS: Nystatin Susp 100,000 Unit/ML 5 ML UD Cup PO SCH ×3 (09:04→21:58)
[2023-02-27] MEDS: Citalopram 20 MG Tab PO SCH (09:04)
[2023-02-27] MEDS: Scopolamine 1.5 MG Transdermal Patch TRDERM SCH (09:08)
[2023-02-27] MEDS: Acetaminophen Soln 650 MG/20.3 ML UD Cup PO SCH ×3 (11:43→23:24)
[2023-02-27] MEDS: Albumin Human 100 ML IV SCH (13:57)
[2023-02-27] MEDS: Levofloxacin/Dextrose 5%-Water 750 MG in Premix Bag 1 BAG IV SCH (21:05)
[2023-02-28] MEDS: hydrOXYzine HCl 25 MG Tab PO PRN ×5 (01:20→21:41)
[2023-02-28] MEDS: Meropenem 1 GM in Sodium Chloride 0.9% 100 ML IV SCH ×3 (03:35→19:40)
[2023-02-28 04:37] LABS: HEMATOCRIT 30.8 % (34.3-46.0); MEAN CORPUSCULAR HEMOGLOBIN 30.8 pg (31.6-35.5); MEAN CORPUSCULAR HGB CONC 32.5 g/dL (31.6-35.5); MEAN CORPUSCULAR VOLUME 94.8 fL (81.4-99.0); RED BLOOD CELL COUNT 3.25 M/uL (3.77-5.24); WHITE BLOOD CELL COUNT,WBC 8.3 K/uL (3.2-11.0)
[2023-02-28] MEDS: Magnesium Sulfate/Water 2 GM in Premix Bag 1 BAG IV SCH ×2 (04:46→09:47)
[2023-02-28] MEDS: 1: AA 5%/Calcium/D15W/Lytes 1,000 ML with MVI, Adult with Vitamin K 10 ML, Zinc/Copper/M IV SCH ×3 (04:46)
[2023-02-28] MEDS: HYDROmorphone/Normal Saline 6 MG/30 ML PCA Vial IV PRN ×5 (04:49→23:59)
[2023-02-28 05:11] LABS: A/G RATIO 0.8 (1.2-2.2); ALANINE AMINOTRANSFERASE,ALT 44 U/L (12-78); ALBUMIN 2.5 g/dL (3.4-5.0); ALKALINE PHOSPHATASE 121 U/L (46-116); ASPARTATE AMNIOTRANSFERASE,AST 14 U/L (15-37); BILIRUBIN TOTAL 0.5 mg/dL (0.2-1.0); BLOOD UREA NITROGEN,BUN 16 mg/dL (7-18); CALCIUM 8.2 mg/dL (8.5-10.1); CARBON DIOXIDE,CO2 35 mmol/L (21-32); CHLORIDE,CL 101 mmol/L (100-108); CREATININE 0.5 mg/dL (0.6-1.0); EST CRCL DRUG DOSING (CG) 118.43 mL/min; ESTIMATED GFR 113 mL/min (>60); GLUCOSE RANDOM 83 mg/dL (74-106); PHOSPHORUS 4.3 mg/dL (2.5-4.9); PRO B-TYPE NATRIUR PEPT,BNPPRO 253 pg/mL (5-125); PROTEIN TOTAL,TP 5.8 g/dL (6.4-8.2); SODIUM,NA 138 mmol/L (140-148)
[2023-02-28] MEDS: Acetaminophen Soln 650 MG/20.3 ML UD Cup PO SCH ×4 (05:41→23:35)
[2023-02-28] MEDS: Hyoscyamine 0.125 MG Tab.SL SL PRN ×3 (05:41→18:05)
[2023-02-28] MEDS: Nystatin Susp 100,000 Unit/ML 5 ML UD Cup PO SCH ×4 (05:41→21:31)
[2023-02-28] MEDS ORDERED: Meropenem 500 MG SDV ONE (06:41)
[2023-02-28] MEDS ORDERED: Lidocaine 1% with EPINEPHrine 1:100,000 50 ML MDV ONE (06:41)
[2023-02-28] MEDS ORDERED: Bupivacaine 0.5% 50 ML MDV ONE (06:41)
[2023-02-28] MEDS ORDERED: fentaNYL 100 MCG/2 ML SDV ONE (07:23)
[2023-02-28] MEDS ORDERED: Propofol 200 MG/20 ML SDV ONE (07:38)
[2023-02-28] MEDS ORDERED: Lactated Ringers 1,000 ML ONE (07:49)
[2023-02-28] MEDS: SCOPOLAMINE PATCH CHECK TOP SCH (09:11)
[2023-02-28] MEDS: Citalopram 20 MG Tab PO SCH (09:11)
[2023-02-28] MEDS: Pantoprazole 40 MG Tab.CR PO SCH (09:11)
[2023-02-28] MEDS: Dextrose 5%-Lactated Ringers 1,000 ML IV SCH (09:50)
[2023-02-28] MEDS: 1: Amino Acids 5%/Dextrose 15% 1,000 ML with MVI, Adult with Vitamin K 10 ML, Zinc/Copp IV SCH ×3 (11:41)
[2023-02-28] MEDS: Cyclobenzaprine 10 MG Tab PO PRN ×2 (11:41→19:40)
[2023-02-28] MEDS: Ondansetron 4 MG/2 ML SDV IVPUSH PRN (14:35)
[2023-02-28] MEDS: Albumin Human 100 ML IV SCH (14:43)
[2023-02-28] MEDS: Levofloxacin/Dextrose 5%-Water 750 MG in Premix Bag 1 BAG IV SCH (21:31)
[2023-03-01] MEDS: Hyoscyamine 0.125 MG Tab.SL SL PRN ×3 (00:03→23:42)
[2023-03-01] MEDS: 1: Amino Acids 5%/Dextrose 15% 1,000 ML with MVI, Adult with Vitamin K 10 ML, Zinc/Copp IV SCH ×6 (00:04→12:51)
[2023-03-01] MEDS: Ondansetron 4 MG/2 ML SDV IVPUSH PRN (01:26)
[2023-03-01] MEDS: hydrOXYzine HCl 25 MG Tab PO PRN ×5 (01:48→21:36)
[2023-03-01] MEDS: Meropenem 1 GM in Sodium Chloride 0.9% 100 ML IV SCH ×3 (03:00→20:30)
[2023-03-01] MEDS: Melatonin 3 MG Tab PO PRN ×2 (03:00→23:44)
[2023-03-01] MEDS: HYDROmorphone/Normal Saline 6 MG/30 ML PCA Vial IV PRN ×3 (04:13→19:43)
[2023-03-01] MEDS: Nystatin Susp 100,000 Unit/ML 5 ML UD Cup PO SCH ×4 (05:20→23:59)
[2023-03-01] MEDS: Acetaminophen Soln 650 MG/20.3 ML UD Cup PO SCH ×4 (05:20→23:44)
[2023-03-01] MEDS: Cyclobenzaprine 10 MG Tab PO PRN ×3 (05:29→21:37)
[2023-03-01 05:41] LABS: BASOPHILS PERCENT AUTO 0.1 % (0.1-1.3); EOSINOPHILS ABSOLUTE AUTO 0.06 K/uL (0.00-0.40); EOSINOPHILS PERCENT AUTO 0.6 % (0.0-5.4); HEMATOCRIT 28.8 % (34.3-46.0); HEMOGLOBIN 9.5 g/dL (11.2-15.5); IMMATURE GRAN ABSOLUTE AUTO 0.04 K/uL (0.00-0.23); IMMATURE GRAN PERCENT AUTO 0.4 % (0.0-0.7); LYMPHOCYTES ABSOLUTE AUTO 2.44 K/uL (0.8-3.3); LYMPHOCYTES PERCENT AUTO 25.1 % (11.4-47.7); MEAN CORPUSCULAR VOLUME 94.1 fL (81.4-99.0); MONOCYTES ABSOLUTE AUTO 1.22 K/uL (0.20-0.90); MONOCYTES PERCENT AUTO 12.6 % (3.3-12.6); NEUTROPHILS ABSOLUTE AUTO 5.95 K/uL (1.0-7.6); NEUTROPHILS PERCENT AUTO 61.2 % (40.0-78.1); PLATELET COUNT,PLT 719 K/uL (130-375); RED BLOOD CELL COUNT 3.06 M/uL (3.77-5.24); WHITE BLOOD CELL COUNT,WBC 9.7 K/uL (3.2-11.0)
[2023-03-01 05:49] LABS: BASOPHILS ABSOLUTE AUTO 0.01 K/uL (0.00-0.10)
[2023-03-01 06:15] LABS: A/G RATIO 0.9 (1.2-2.2); ALANINE AMINOTRANSFERASE,ALT 40 U/L (12-78); ALKALINE PHOSPHATASE 124 U/L (46-116); ASPARTATE AMNIOTRANSFERASE,AST 13 U/L (15-37); BILIRUBIN TOTAL 0.3 mg/dL (0.2-1.0); BLOOD UREA NITROGEN,BUN 20 mg/dL (7-18); CALCIUM 8.6 mg/dL (8.5-10.1); CARBON DIOXIDE,CO2 31 mmol/L (21-32); CHLORIDE,CL 103 mmol/L (100-108); CREATININE 0.4 mg/dL (0.6-1.0); EST CRCL DRUG DOSING (CG) 147.85 mL/min; ESTIMATED GFR 119 mL/min (>60); GLUCOSE RANDOM 113 mg/dL (74-106); MAGNESIUM 1.9 mg/dL (1.8-2.4); PHOSPHORUS 2.3 mg/dL (2.5-4.9); POTASSIUM,K 4.2 mmol/L (3.6-5.2); PROTEIN TOTAL,TP 6.3 g/dL (6.4-8.2); SODIUM,NA 139 mmol/L (140-148)
[2023-03-01 06:18] LABS: ANION GAP 9.2 mmol/L (5.0-14.0)
[2023-03-01] MEDS: Pantoprazole 40 MG Tab.CR PO SCH (07:34)
[2023-03-01] MEDS ORDERED: Central Total Parenteral Nutrition Bag SCH ×2 (08:30)
[2023-03-01] MEDS ORDERED: Furosemide 20 MG/2 ML VIAL IVPUSH ONE (08:31)
[2023-03-01] MEDS ORDERED: Potassium Phosphates 3 mMole/ML 15 ML SDV JTUBE ONE (09:00)
[2023-03-01] MEDS: Citalopram 20 MG Tab PO SCH (09:01)
[2023-03-01] MEDS: SCOPOLAMINE PATCH CHECK TOP SCH (09:04)
[2023-03-01] MEDS: Potassium Phosphates 3 mMole/ML 15 ML SDV JTUBE SCH ×2 (10:15→12:51)
[2023-03-01] MEDS ORDERED: HYDROmorphone/Normal Saline 6 MG/30 ML PCA Vial IV PRN ×2 (12:03→14:12)
[2023-03-01] MEDS ORDERED: Naloxone 0.4 MG/ML SDV IVPUSH PRN ×2 (12:03→16:08)
[2023-03-01] MEDS: Albumin Human 100 ML IV SCH (12:51)
[2023-03-01] MEDS ORDERED: Ondansetron 4 MG/2 ML SDV IVPUSH PRN (16:08)
[2023-03-01] MEDS ORDERED: diphenhydrAMINE 50 MG/ML SDV IVPUSH PRN (16:08)
[2023-03-01] MEDS: diphenhydrAMINE 25 MG Cap PO PRN ×2 (17:28→23:42)
[2023-03-01] MEDS: Levofloxacin/Dextrose 5%-Water 750 MG in Premix Bag 1 BAG IV SCH (20:31)
[2023-03-02] MEDS: 1: Amino Acids 5%/Dextrose 15% 1,000 ML with MVI, Adult with Vitamin K 10 ML, Zinc/Copp IV SCH ×6 (02:19→14:43)
[2023-03-02] MEDS: Meropenem 1 GM in Sodium Chloride 0.9% 100 ML IV SCH ×3 (04:06→19:41)
[2023-03-02 04:21] LABS: HEMATOCRIT 29.7 % (34.3-46.0); HEMOGLOBIN 9.7 g/dL (11.2-15.5); MEAN CORPUSCULAR HEMOGLOBIN 30.7 pg (31.6-35.5); MEAN CORPUSCULAR HGB CONC 32.7 g/dL (31.6-35.5); RED BLOOD CELL COUNT 3.16 M/uL (3.77-5.24); WHITE BLOOD CELL COUNT,WBC 12.4 K/uL (3.2-11.0)
[2023-03-02 05:10] LABS: A/G RATIO 0.9 (1.2-2.2); ALANINE AMINOTRANSFERASE,ALT 55 U/L (12-78); ALBUMIN 2.7 g/dL (3.4-5.0); ALKALINE PHOSPHATASE 106 U/L (46-116); ANION GAP 7.5 mmol/L (5.0-14.0); ASPARTATE AMNIOTRANSFERASE,AST 30 U/L (15-37); BILIRUBIN TOTAL 0.3 mg/dL (0.2-1.0); BLOOD UREA NITROGEN,BUN 22 mg/dL (7-18); CALCIUM 8.4 mg/dL (8.5-10.1); CARBON DIOXIDE,CO2 30 mmol/L (21-32); CHLORIDE,CL 104 mmol/L (100-108); CREATININE 0.4 mg/dL (0.6-1.0); EST CRCL DRUG DOSING (CG) 148.04 mL/min; ESTIMATED GFR 119 mL/min (>60); GLUCOSE RANDOM 103 mg/dL (74-106); MAGNESIUM 1.5 mg/dL (1.8-2.4); PHOSPHORUS 3.3 mg/dL (2.5-4.9); POTASSIUM,K 4.2 mmol/L (3.6-5.2); PRO B-TYPE NATRIUR PEPT,BNPPRO 214 pg/mL (5-125); PROTEIN TOTAL,TP 5.8 g/dL (6.4-8.2); SODIUM,NA 141 mmol/L (140-148)
[2023-03-02] MEDS: Acetaminophen Soln 650 MG/20.3 ML UD Cup PO SCH ×4 (05:26→23:47)
[2023-03-02] MEDS: Dextrose 5%-Lactated Ringers 1,000 ML IV SCH (05:26)
[2023-03-02] MEDS: Nystatin Susp 100,000 Unit/ML 5 ML UD Cup PO SCH ×4 (05:26→22:16)
[2023-03-02] MEDS: hydrOXYzine HCl 25 MG Tab PO PRN ×5 (05:31→23:48)
[2023-03-02] MEDS: Cyclobenzaprine 10 MG Tab PO PRN ×3 (05:32→22:12)
[2023-03-02] MEDS: HYDROmorphone/Normal Saline 6 MG/30 ML PCA Vial IV PRN ×4 (06:20→21:13)
[2023-03-02] MEDS: Hyoscyamine 0.125 MG Tab.SL SL PRN ×3 (06:23→22:14)
[2023-03-02] MEDS ORDERED: Propofol 200 MG/20 ML SDV ONE (07:04)
[2023-03-02] MEDS ORDERED: fentaNYL 100 MCG/2 ML SDV ONE (07:04)
[2023-03-02] MEDS ORDERED: Glycopyrrolate 0.2 MG/ML 2 ML SDV IVPUSH ONE (07:15)
[2023-03-02] MEDS: diphenhydrAMINE 25 MG Cap PO PRN (08:56)
[2023-03-02] MEDS: Pantoprazole 40 MG Tab.CR PO SCH (08:56)
[2023-03-02] MEDS: Scopolamine 1.5 MG Transdermal Patch TRDERM SCH (08:57)
[2023-03-02] MEDS: Citalopram 20 MG Tab PO SCH (08:57)
[2023-03-02] MEDS: Albumin Human 25 GM in Premix Bag 1 BAG IV SCH (08:58)
[2023-03-02] MEDS: SCOPOLAMINE PATCH CHECK TOP SCH (08:58)
[2023-03-02] MEDS: Magnesium Sulfate/Water 2 GM in Premix Bag 1 BAG IV SCH ×3 (10:59→22:13)
[2023-03-02] MEDS: Sucralfate Suspension 1 GM/10 ML Cup PO SCH ×3 (11:00→22:15)
[2023-03-02] MEDS: Ondansetron 4 MG/2 ML SDV IVPUSH PRN (11:04)
[2023-03-02] MEDS: Fluconazole 100 MG Tab PO SCH (11:45)
[2023-03-02] MEDS ORDERED: Naloxone 0.4 MG/ML SDV IVPUSH PRN (15:18)
[2023-03-02] MEDS ORDERED: diphenhydrAMINE 25 MG Cap PO PRN (15:18)
[2023-03-02] MEDS ORDERED: diphenhydrAMINE 50 MG/ML SDV IVPUSH PRN (15:18)
[2023-03-02] MEDS ORDERED: Ondansetron 4 MG/2 ML SDV IVPUSH PRN (15:18)
[2023-03-02] MEDS: Levofloxacin/Dextrose 5%-Water 750 MG in Premix Bag 1 BAG IV SCH (20:52)
[2023-03-02] MEDS: Melatonin 3 MG Tab PO PRN (22:20)
[2023-03-03] MEDS: Meropenem 1 GM in Sodium Chloride 0.9% 100 ML IV SCH ×3 (03:57→21:11)
[2023-03-03] MEDS: hydrOXYzine HCl 25 MG Tab PO PRN ×5 (03:58→23:31)
[2023-03-03] MEDS: Magnesium Sulfate/Water 2 GM in Premix Bag 1 BAG IV SCH ×4 (03:58→21:23)
[2023-03-03] MEDS: 1: Amino Acids 5%/Dextrose 15% 1,000 ML with MVI, Adult with Vitamin K 10 ML, Zinc/Copp IV SCH ×6 (04:06→17:13)
[2023-03-03 04:28] LABS: BASOPHILS ABSOLUTE AUTO 0.09 K/uL (0.00-0.10); BASOPHILS PERCENT AUTO 0.6 % (0.1-1.3); EOSINOPHILS ABSOLUTE AUTO 0.42 K/uL (0.00-0.40); EOSINOPHILS PERCENT AUTO 2.8 % (0.0-5.4); HEMATOCRIT 29.9 % (34.3-46.0); HEMOGLOBIN 9.7 g/dL (11.2-15.5); IMMATURE GRAN ABSOLUTE AUTO 0.06 K/uL (0.00-0.23); IMMATURE GRAN PERCENT AUTO 0.4 % (0.0-0.7); LYMPHOCYTES ABSOLUTE AUTO 2.55 K/uL (0.8-3.3); LYMPHOCYTES PERCENT AUTO 16.9 % (11.4-47.7); MEAN CORPUSCULAR HEMOGLOBIN 30.2 pg (31.6-35.5); MEAN CORPUSCULAR HGB CONC 32.4 g/dL (31.6-35.5); MEAN CORPUSCULAR VOLUME 93.1 fL (81.4-99.0); MONOCYTES ABSOLUTE AUTO 1.72 K/uL (0.20-0.90); MONOCYTES PERCENT AUTO 11.4 % (3.3-12.6); NEUTROPHILS ABSOLUTE AUTO 10.23 K/uL (1.0-7.6); NEUTROPHILS PERCENT AUTO 67.9 % (40.0-78.1); PLATELET COUNT,PLT 789 K/uL (130-375); RED BLOOD CELL COUNT 3.21 M/uL (3.77-5.24); WHITE BLOOD CELL COUNT,WBC 15.1 K/uL (3.2-11.0)
[2023-03-03 04:56] LABS: A/G RATIO 0.9 (1.2-2.2); ALANINE AMINOTRANSFERASE,ALT 54 U/L (12-78); ALBUMIN 2.9 g/dL (3.4-5.0); ALKALINE PHOSPHATASE 108 U/L (46-116); ANION GAP 8.4 mmol/L (5.0-14.0); ASPARTATE AMNIOTRANSFERASE,AST 21 U/L (15-37); BILIRUBIN TOTAL 0.3 mg/dL (0.2-1.0); BLOOD UREA NITROGEN,BUN 21 mg/dL (7-18); CALCIUM 8.2 mg/dL (8.5-10.1); CARBON DIOXIDE,CO2 28 mmol/L (21-32); CHLORIDE,CL 104 mmol/L (100-108); CREATININE 0.5 mg/dL (0.6-1.0); EST CRCL DRUG DOSING (CG) 118.43 mL/min; ESTIMATED GFR 113 mL/min (>60); GLUCOSE RANDOM 125 mg/dL (74-106); PHOSPHORUS 3.8 mg/dL (2.5-4.9); POTASSIUM,K 4.4 mmol/L (3.6-5.2); SODIUM,NA 140 mmol/L (140-148)
[2023-03-03 04:57] LABS: IRON,FE 10 ug/dL (50-170); PERCENT FE SATURATION 8 % (20-55); TOTAL IRON BINDING CAPACITY 118 ug/dl (250-450)
[2023-03-03] MEDS: Cyclobenzaprine 10 MG Tab PO PRN ×3 (06:14→21:29)
[2023-03-03] MEDS: Acetaminophen Soln 650 MG/20.3 ML UD Cup PO SCH ×4 (06:15→23:31)
[2023-03-03] MEDS: Nystatin Susp 100,000 Unit/ML 5 ML UD Cup PO SCH ×4 (06:16→21:11)
[2023-03-03] MEDS: Sucralfate Suspension 1 GM/10 ML Cup PO SCH ×4 (06:16→21:12)
[2023-03-03] MEDS: HYDROmorphone/Normal Saline 6 MG/30 ML PCA Vial IV PRN ×3 (07:47→21:50)
[2023-03-03] MEDS: Pantoprazole 40 MG Tab.CR PO SCH ×2 (07:59→21:11)
[2023-03-03] MEDS ORDERED: Central Total Parenteral Nutrition Bag SCH (08:15)
[2023-03-03] MEDS: SCOPOLAMINE PATCH CHECK TOP SCH (08:51)
[2023-03-03] MEDS: Albumin Human 25 GM in Premix Bag 1 BAG IV SCH (08:51)
[2023-03-03] MEDS: Citalopram 20 MG Tab PO SCH (08:51)
[2023-03-03] MEDS: Fluconazole 100 MG Tab PO SCH (08:52)
[2023-03-03] MEDS: Ondansetron 4 MG/2 ML SDV IVPUSH PRN ×2 (13:26→21:11)
[2023-03-03] MEDS ORDERED: diphenhydrAMINE 25 MG Cap PO PRN (16:07)
[2023-03-03] MEDS: Hyoscyamine 0.125 MG Tab.SL SL PRN (18:04)
[2023-03-03] MEDS: Dextrose 5%-Lactated Ringers 1,000 ML IV SCH (21:11)
[2023-03-03] MEDS: Levofloxacin/Dextrose 5%-Water 750 MG in Premix Bag 1 BAG IV SCH (21:51)
[2023-03-04] MEDS: Hyoscyamine 0.125 MG Tab.SL SL PRN ×4 (02:47→23:49)
[2023-03-04 04:33] LABS: HEMATOCRIT 29.9 % (34.3-46.0); HEMOGLOBIN 9.8 g/dL (11.2-15.5); MEAN CORPUSCULAR HEMOGLOBIN 30.8 pg (31.6-35.5); MEAN CORPUSCULAR HGB CONC 32.8 g/dL (31.6-35.5); RED BLOOD CELL COUNT 3.18 M/uL (3.77-5.24); WHITE BLOOD CELL COUNT,WBC 15.1 K/uL (3.2-11.0)
[2023-03-04] MEDS: hydrOXYzine HCl 25 MG Tab PO PRN ×5 (04:46→23:49)
[2023-03-04] MEDS: Benzocaine/Cetylpyridinium/Menthol Lozenge MUCMEM PRN (04:47)
[2023-03-04] MEDS: 1: Amino Acids 5%/Dextrose 15% 1,000 ML with MVI, Adult with Vitamin K 10 ML, Zinc/Copp IV SCH ×9 (04:47→18:35)
[2023-03-04] MEDS: Meropenem 1 GM in Sodium Chloride 0.9% 100 ML IV SCH (04:48)
[2023-03-04] MEDS: Magnesium Sulfate/Water 2 GM in Premix Bag 1 BAG IV SCH ×4 (04:48→21:08)
[2023-03-04] MEDS: Sucralfate Suspension 1 GM/10 ML Cup PO SCH ×4 (05:02→21:07)
[2023-03-04] MEDS: Nystatin Susp 100,000 Unit/ML 5 ML UD Cup PO SCH ×4 (05:02→21:07)
[2023-03-04] MEDS: Acetaminophen Soln 650 MG/20.3 ML UD Cup PO SCH ×4 (05:02→23:46)
[2023-03-04 05:03] LABS: A/G RATIO 0.9 (1.2-2.2); ALANINE AMINOTRANSFERASE,ALT 56 U/L (12-78); ALBUMIN 3.1 g/dL (3.4-5.0); ALKALINE PHOSPHATASE 108 U/L (46-116); ASPARTATE AMNIOTRANSFERASE,AST 35 U/L (15-37); BILIRUBIN TOTAL 0.4 mg/dL (0.2-1.0); BLOOD UREA NITROGEN,BUN 21 mg/dL (7-18); CARBON DIOXIDE,CO2 28 mmol/L (21-32); CHLORIDE,CL 104 mmol/L (100-108); CREATININE 0.4 mg/dL (0.6-1.0); EST CRCL DRUG DOSING (CG) 147.97 mL/min; ESTIMATED GFR 119 mL/min (>60); GLUCOSE RANDOM 105 mg/dL (74-106); MAGNESIUM 2.2 mg/dL (1.8-2.4); PHOSPHORUS 3.3 mg/dL (2.5-4.9); POTASSIUM,K 4.8 mmol/L (3.6-5.2); PRO B-TYPE NATRIUR PEPT,BNPPRO 52 pg/mL (5-125); PROTEIN TOTAL,TP 6.5 g/dL (6.4-8.2); SODIUM,NA 137 mmol/L (140-148)
[2023-03-04 05:14] LABS: ANION GAP 9.8 mmol/L (5.0-14.0)
[2023-03-04] MEDS: Cyclobenzaprine 10 MG Tab PO PRN ×3 (05:52→23:54)
[2023-03-04] MEDS: Ondansetron 4 MG/2 ML SDV IVPUSH PRN ×3 (05:52→18:48)
[2023-03-04] MEDS: Pantoprazole 40 MG Tab.CR PO SCH ×2 (08:30→21:07)
[2023-03-04] MEDS: Citalopram 20 MG Tab PO SCH (08:30)
[2023-03-04] MEDS: Fluconazole 100 MG Tab PO SCH (08:30)
[2023-03-04] MEDS: Albumin Human 25 GM in Premix Bag 1 BAG IV SCH (08:31)
[2023-03-04] MEDS: SCOPOLAMINE PATCH CHECK TOP SCH (08:35)
[2023-03-04] MEDS: HYDROmorphone/Normal Saline 6 MG/30 ML PCA Vial IV PRN ×2 (09:22→17:26)
[2023-03-04] MEDS ORDERED: Sodium Chloride 0.9% 75 ML IV ONE (13:21)
[2023-03-04] MEDS ORDERED: Sodium Chloride 0.9% 10 ML Syringe FLUSH ONE (13:21)
[2023-03-04] MEDS ORDERED: Iopamidol 755 Mg/ML 100 ML Bottle IV ONE (13:21)
[2023-03-04] MEDS: Levofloxacin/Dextrose 5%-Water 750 MG in Premix Bag 1 BAG IV SCH (20:52)
[2023-03-04] MEDS: Acetylcysteine 20% 200 MG/ML 4 ML Nebulizer Soln SDV NEB SCH (21:05)
[2023-03-04] MEDS: Melatonin 3 MG Tab PO PRN (21:07)
[2023-03-05 04:50] LABS: BASOPHILS ABSOLUTE AUTO 0.07 K/uL (0.00-0.10); BASOPHILS PERCENT AUTO 0.6 % (0.1-1.3); EOSINOPHILS PERCENT AUTO 9.1 % (0.0-5.4); HEMATOCRIT 29.4 % (34.3-46.0); HEMOGLOBIN 9.7 g/dL (11.2-15.5); IMMATURE GRAN ABSOLUTE AUTO 0.03 K/uL (0.00-0.23); IMMATURE GRAN PERCENT AUTO 0.3 % (0.0-0.7); LYMPHOCYTES ABSOLUTE AUTO 1.99 K/uL (0.8-3.3); LYMPHOCYTES PERCENT AUTO 18.1 % (11.4-47.7); MEAN CORPUSCULAR HEMOGLOBIN 30.8 pg (31.6-35.5); MEAN CORPUSCULAR VOLUME 93.3 fL (81.4-99.0); MONOCYTES ABSOLUTE AUTO 1.54 K/uL (0.20-0.90); NEUTROPHILS ABSOLUTE AUTO 6.36 K/uL (1.0-7.6); NEUTROPHILS PERCENT AUTO 57.9 % (40.0-78.1); PLATELET COUNT,PLT 657 K/uL (130-375); RED BLOOD CELL COUNT 3.15 M/uL (3.77-5.24)
[2023-03-05 05:15] LABS: A/G RATIO 0.9 (1.2-2.2); ALANINE AMINOTRANSFERASE,ALT 57 U/L (12-78); ALBUMIN 3.1 g/dL (3.4-5.0); ALKALINE PHOSPHATASE 101 U/L (46-116); ASPARTATE AMNIOTRANSFERASE,AST 31 U/L (15-37); BILIRUBIN TOTAL 0.3 mg/dL (0.2-1.0); BLOOD UREA NITROGEN,BUN 20 mg/dL (7-18); CALCIUM 8.5 mg/dL (8.5-10.1); CARBON DIOXIDE,CO2 27 mmol/L (21-32); CHLORIDE,CL 104 mmol/L (100-108); CREATININE 0.5 mg/dL (0.6-1.0); EST CRCL DRUG DOSING (CG) 118.43 mL/min; ESTIMATED GFR 113 mL/min (>60); GLUCOSE RANDOM 131 mg/dL (74-106); POTASSIUM,K 4.8 mmol/L (3.6-5.2); PROTEIN TOTAL,TP 6.5 g/dL (6.4-8.2); SODIUM,NA 136 mmol/L (140-148)
[2023-03-05 05:22] LABS: ANION GAP 9.8 mmol/L (5.0-14.0)
[2023-03-05] MEDS: Acetaminophen Soln 650 MG/20.3 ML UD Cup PO SCH ×4 (05:34→23:42)
[2023-03-05] MEDS: Nystatin Susp 100,000 Unit/ML 5 ML UD Cup PO SCH ×4 (05:34→22:11)
[2023-03-05] MEDS: Magnesium Sulfate/Water 2 GM in Premix Bag 1 BAG IV SCH (05:34)
[2023-03-05] MEDS: Sucralfate Suspension 1 GM/10 ML Cup PO SCH ×4 (05:34→22:11)
[2023-03-05] MEDS: hydrOXYzine HCl 25 MG Tab PO PRN ×4 (05:35→23:52)
[2023-03-05] MEDS: Acetylcysteine 20% 200 MG/ML 4 ML Nebulizer Soln SDV NEB SCH ×4 (06:56→20:19)
[2023-03-05] MEDS: Cyclobenzaprine 10 MG Tab PO PRN ×2 (08:06→17:25)
[2023-03-05] MEDS: 1: Amino Acids 5%/Dextrose 15% 1,000 ML with MVI, Adult with Vitamin K 10 ML, Zinc/Copp IV SCH ×9 (08:06→20:28)
[2023-03-05] MEDS: Hyoscyamine 0.125 MG Tab.SL SL PRN ×3 (08:06→23:42)
[2023-03-05] MEDS: Scopolamine 1.5 MG Transdermal Patch TRDERM SCH (08:07)
[2023-03-05] MEDS: Fluconazole 100 MG Tab PO SCH (08:07)
[2023-03-05] MEDS: Albumin Human 25 GM in Premix Bag 1 BAG IV SCH (08:07)
[2023-03-05] MEDS: Citalopram 20 MG Tab PO SCH (08:07)
[2023-03-05] MEDS: Pantoprazole 40 MG Tab.CR PO SCH ×2 (08:08→22:11)
[2023-03-05] MEDS: SCOPOLAMINE PATCH CHECK TOP SCH (08:08)
[2023-03-05] MEDS: HYDROmorphone/Normal Saline 6 MG/30 ML PCA Vial IV PRN ×2 (10:10→20:16)
[2023-03-05] MEDS: Ondansetron 4 MG/2 ML SDV IVPUSH PRN ×2 (11:47→20:21)
[2023-03-05] MEDS: Dextrose 5%-Lactated Ringers 1,000 ML IV SCH (20:22)
[2023-03-05] MEDS: Levofloxacin/Dextrose 5%-Water 750 MG in Premix Bag 1 BAG IV SCH (22:11)
[2023-03-05] MEDS: Melatonin 3 MG Tab PO PRN (22:11)
[2023-03-06] MEDS: Cyclobenzaprine 10 MG Tab PO PRN ×2 (01:52→18:43)
[2023-03-06 04:43] LABS: BASOPHILS ABSOLUTE AUTO 0.08 K/uL (0.00-0.10); BASOPHILS PERCENT AUTO 0.7 % (0.1-1.3); EOSINOPHILS ABSOLUTE AUTO 1.35 K/uL (0.00-0.40); EOSINOPHILS PERCENT AUTO 12.3 % (0.0-5.4); HEMOGLOBIN 9.9 g/dL (11.2-15.5); IMMATURE GRAN ABSOLUTE AUTO 0.04 K/uL (0.00-0.23); IMMATURE GRAN PERCENT AUTO 0.4 % (0.0-0.7); LYMPHOCYTES ABSOLUTE AUTO 2.79 K/uL (0.8-3.3); LYMPHOCYTES PERCENT AUTO 25.4 % (11.4-47.7); MEAN CORPUSCULAR HEMOGLOBIN 30.7 pg (31.6-35.5); MEAN CORPUSCULAR VOLUME 92.9 fL (81.4-99.0); MONOCYTES ABSOLUTE AUTO 1.65 K/uL (0.20-0.90); NEUTROPHILS ABSOLUTE AUTO 5.09 K/uL (1.0-7.6); NEUTROPHILS PERCENT AUTO 46.2 % (40.0-78.1); PLATELET COUNT,PLT 751 K/uL (130-375); RED BLOOD CELL COUNT 3.23 M/uL (3.77-5.24)
[2023-03-06] MEDS: hydrOXYzine HCl 25 MG Tab PO PRN ×4 (04:57→21:17)
[2023-03-06 05:00] LABS: ALANINE AMINOTRANSFERASE,ALT 71 U/L (12-78); ALBUMIN 3.3 g/dL (3.4-5.0); ALKALINE PHOSPHATASE 100 U/L (46-116); ASPARTATE AMNIOTRANSFERASE,AST 43 U/L (15-37); BILIRUBIN TOTAL 0.3 mg/dL (0.2-1.0); BLOOD UREA NITROGEN,BUN 20 mg/dL (7-18); CALCIUM 8.7 mg/dL (8.5-10.1); CARBON DIOXIDE,CO2 28 mmol/L (21-32); CHLORIDE,CL 104 mmol/L (100-108); CREATININE 0.5 mg/dL (0.6-1.0); EST CRCL DRUG DOSING (CG) 114.89 mL/min; ESTIMATED GFR 113 mL/min (>60); GLUCOSE RANDOM 128 mg/dL (74-106); MAGNESIUM 1.4 mg/dL (1.8-2.4); PHOSPHORUS 3.8 mg/dL (2.5-4.9); POTASSIUM,K 4.6 mmol/L (3.6-5.2); PROTEIN TOTAL,TP 6.7 g/dL (6.4-8.2); SODIUM,NA 137 mmol/L (140-148)
[2023-03-06] MEDS: Acetaminophen Soln 650 MG/20.3 ML UD Cup PO SCH ×2 (05:00→13:05)
[2023-03-06] MEDS: Nystatin Susp 100,000 Unit/ML 5 ML UD Cup PO SCH ×3 (05:00→16:20)
[2023-03-06] MEDS: Sucralfate Suspension 1 GM/10 ML Cup PO SCH ×4 (05:00→21:14)
[2023-03-06 05:08] LABS: ANION GAP 9.6 mmol/L (5.0-14.0)
[2023-03-06] MEDS: Acetylcysteine 20% 200 MG/ML 4 ML Nebulizer Soln SDV NEB SCH ×3 (07:05→20:07)
[2023-03-06] MEDS ORDERED: Meropenem 500 MG SDV ONE (07:06)
[2023-03-06] MEDS ORDERED: Bupivacaine 0.5% 50 ML MDV ONE (07:06)
[2023-03-06] MEDS ORDERED: Lidocaine 1% with EPINEPHrine 1:100,000 50 ML MDV ONE (07:07)
[2023-03-06] MEDS: Hyoscyamine 0.125 MG Tab.SL SL PRN ×2 (07:32→16:47)
[2023-03-06] MEDS ORDERED: Lidocaine 2% 30 ML, Alum Hydrox/Mag Hydrox/Simeth 30 ML, diphenhydrAMINE 75 MG PO PRN ×3 (07:57)
[2023-03-06] MEDS ORDERED: Ketamine 16 MG in Sodium Chloride 0.9% 19.84 ML IV SCH (08:00)
[2023-03-06] MEDS ORDERED: Ketamine 500 MG/5 ML MDV IV SCH (08:00)
[2023-03-06] MEDS ORDERED: Central Total Parenteral Nutrition Bag SCH (08:00)
[2023-03-06] MEDS: SCOPOLAMINE PATCH CHECK TOP SCH (08:47)
[2023-03-06] MEDS: Fluconazole 100 MG Tab PO SCH (08:47)
[2023-03-06] MEDS: Pantoprazole 40 MG Tab.CR PO SCH ×2 (08:47→20:03)
[2023-03-06] MEDS: Citalopram 20 MG Tab PO SCH (08:48)
[2023-03-06] MEDS: 1: Amino Acids 5%/Dextrose 15% 1,000 ML with MVI, Adult with Vitamin K 10 ML, Zinc/Copp IV SCH ×6 (09:21→21:24)
[2023-03-06] MEDS: Magnesium Sulfate/Water 2 GM/50 ML BAG IV SCH ×3 (09:27→21:14)
[2023-03-06] MEDS: HYDROmorphone/Normal Saline 6 MG/30 ML PCA Vial IV PRN ×3 (09:52→17:23)
[2023-03-06] MEDS ORDERED: Magnesium Sulfate/Water 2 GM/50 ML BAG IV SCH (10:00)
[2023-03-06] MEDS ORDERED: fentaNYL 100 MCG/2 ML SDV ONE ×2 (10:39→13:21)
[2023-03-06] MEDS ORDERED: fentaNYL 250 MCG/5 ML SDV ONE (11:02)
[2023-03-06] MEDS ORDERED: Glycopyrrolate 0.2 MG/ML 5 ML MDV ONE (11:03)
[2023-03-06] MEDS ORDERED: Dexamethasone 4 MG/ML SDV ONE (11:03)
[2023-03-06] MEDS ORDERED: Neostigmine Methylsulfate 1 MG/ML 5 ML Syringe ONE (11:03)
[2023-03-06] MEDS ORDERED: Propofol 200 MG/20 ML SDV ONE ×2 (11:03→11:24)
[2023-03-06] MEDS ORDERED: Rocuronium 50 MG/5 ML Vial ONE (11:03)
[2023-03-06] MEDS ORDERED: Succinylcholine 200 MG/10 ML MDV ONE (11:03)
[2023-03-06] MEDS ORDERED: Ondansetron 4 MG/2 ML SDV ONE (11:03)
[2023-03-06] MEDS ORDERED: Linezolid 600 MG/300 ML Premix Bag IRR ONE (13:17)
[2023-03-06] MEDS ORDERED: Morphine 10 MG/ML Syringe IVPUSH ONE (15:00)
[2023-03-06] MEDS: Ondansetron 4 MG/2 ML SDV IVPUSH PRN (15:39)
[2023-03-06] MEDS: Acetaminophen 1,000 MG in Premix Bag 1 BAG IV SCH (19:59)
[2023-03-06] MEDS: Melatonin 3 MG Tab PO PRN (21:14)
[2023-03-06] MEDS: Dextrose 5%-Lactated Ringers 1,000 ML IV SCH (21:59)
[2023-03-07] MEDS: HYDROmorphone/Normal Saline 6 MG/30 ML PCA Vial IV PRN ×5 (00:07→21:33)
[2023-03-07] MEDS: Hyoscyamine 0.125 MG Tab.SL SL PRN ×4 (00:12→17:59)
[2023-03-07] MEDS: Acetaminophen 1,000 MG in Premix Bag 1 BAG IV SCH ×3 (01:32→14:05)
[2023-03-07] MEDS: hydrOXYzine HCl 25 MG Tab PO PRN ×6 (01:32→22:20)
[2023-03-07] MEDS: Cyclobenzaprine 10 MG Tab PO PRN ×3 (02:00→20:08)
[2023-03-07] MEDS: Magnesium Sulfate/Water 2 GM/50 ML BAG IV SCH ×4 (04:25→21:14)
[2023-03-07 05:02] LABS: HEMATOCRIT 32.2 % (34.3-46.0); HEMOGLOBIN 10.6 g/dL (11.2-15.5); MEAN CORPUSCULAR HEMOGLOBIN 30.6 pg (31.6-35.5); MEAN CORPUSCULAR HGB CONC 32.9 g/dL (31.6-35.5); MEAN CORPUSCULAR VOLUME 93.1 fL (81.4-99.0); RED BLOOD CELL COUNT 3.46 M/uL (3.77-5.24)
[2023-03-07 05:30] LABS: A/G RATIO 0.9 (1.2-2.2); ALANINE AMINOTRANSFERASE,ALT 124 U/L (12-78); ALBUMIN 3.4 g/dL (3.4-5.0); ALKALINE PHOSPHATASE 128 U/L (46-116); ASPARTATE AMNIOTRANSFERASE,AST 85 U/L (15-37); BILIRUBIN TOTAL 0.2 mg/dL (0.2-1.0); BLOOD UREA NITROGEN,BUN 25 mg/dL (7-18); CALCIUM 8.8 mg/dL (8.5-10.1); CARBON DIOXIDE,CO2 25 mmol/L (21-32); CHLORIDE,CL 99 mmol/L (100-108); CREATININE 0.5 mg/dL (0.6-1.0); EST CRCL DRUG DOSING (CG) 114.98 mL/min; ESTIMATED GFR 113 mL/min (>60); GLUCOSE RANDOM 232 mg/dL (74-106); MAGNESIUM 2.2 mg/dL (1.8-2.4); PHOSPHORUS 3.6 mg/dL (2.5-4.9); POTASSIUM,K 3.8 mmol/L (3.6-5.2); PROTEIN TOTAL,TP 7.3 g/dL (6.4-8.2); SODIUM,NA 134 mmol/L (140-148)
[2023-03-07 05:37] LABS: ANION GAP 13.8 mmol/L (5.0-14.0)
[2023-03-07] MEDS: Sucralfate Suspension 1 GM/10 ML Cup PO SCH ×4 (05:40→21:14)
[2023-03-07] MEDS: Ondansetron 4 MG/2 ML SDV IVPUSH PRN ×3 (05:53→20:08)
[2023-03-07] MEDS: Acetylcysteine 20% 200 MG/ML 4 ML Nebulizer Soln SDV NEB SCH ×2 (07:33→13:06)
[2023-03-07] MEDS ORDERED: Central Total Parenteral Nutrition Bag SCH (08:00)
[2023-03-07] MEDS: Fluconazole 100 MG Tab PO SCH (09:13)
[2023-03-07] MEDS: Citalopram 20 MG Tab PO SCH (09:13)
[2023-03-07] MEDS: Pantoprazole 40 MG Tab.CR PO SCH ×2 (09:13→20:09)
[2023-03-07] MEDS: SCOPOLAMINE PATCH CHECK TOP SCH (09:14)
[2023-03-07] MEDS: 1: Amino Acids 5%/Dextrose 15% 1,000 ML with MVI, Adult with Vitamin K 10 ML, Zinc/Copp IV SCH ×6 (10:05→23:14)
[2023-03-07] MEDS ORDERED: diphenhydrAMINE 25 MG Cap PO PRN (17:03)
[2023-03-07] MEDS: Acetaminophen Soln 650 MG/20.3 ML UD Cup PO SCH (20:09)
[2023-03-07] MEDS: Melatonin 3 MG Tab PO PRN (21:14)
[2023-03-08] MEDS: Hyoscyamine 0.125 MG Tab.SL SL PRN ×4 (00:04→18:34)
[2023-03-08] MEDS: Ondansetron 4 MG/2 ML SDV IVPUSH PRN (02:26)
[2023-03-08] MEDS: hydrOXYzine HCl 25 MG Tab PO PRN ×6 (02:26→23:54)
[2023-03-08] MEDS: Acetaminophen Soln 650 MG/20.3 ML UD Cup PO SCH ×4 (02:26→19:59)
[2023-03-08] MEDS: Cyclobenzaprine 10 MG Tab PO PRN ×3 (04:01→19:55)
[2023-03-08] MEDS: Magnesium Sulfate/Water 2 GM/50 ML BAG IV SCH ×2 (04:02→10:32)
[2023-03-08] MEDS: HYDROmorphone/Normal Saline 6 MG/30 ML PCA Vial IV PRN ×4 (04:12→20:17)
[2023-03-08 04:21] LABS: HEMATOCRIT 27.9 % (34.3-46.0); HEMOGLOBIN 9.1 g/dL (11.2-15.5); MEAN CORPUSCULAR HEMOGLOBIN 30.1 pg (31.6-35.5); MEAN CORPUSCULAR HGB CONC 32.6 g/dL (31.6-35.5); MEAN CORPUSCULAR VOLUME 92.4 fL (81.4-99.0); RED BLOOD CELL COUNT 3.02 M/uL (3.77-5.24); WHITE BLOOD CELL COUNT,WBC 16.3 K/uL (3.2-11.0)
[2023-03-08 04:49] LABS: A/G RATIO 0.9 (1.2-2.2); ALANINE AMINOTRANSFERASE,ALT 214 U/L (12-78); ALBUMIN 3.1 g/dL (3.4-5.0); ALKALINE PHOSPHATASE 121 U/L (46-116); ASPARTATE AMNIOTRANSFERASE,AST 163 U/L (15-37); BILIRUBIN TOTAL 0.2 mg/dL (0.2-1.0); BLOOD UREA NITROGEN,BUN 27 mg/dL (7-18); CALCIUM 8.3 mg/dL (8.5-10.1); CARBON DIOXIDE,CO2 27 mmol/L (21-32); CHLORIDE,CL 104 mmol/L (100-108); CREATININE 0.5 mg/dL (0.6-1.0); EST CRCL DRUG DOSING (CG) 114.79 mL/min; ESTIMATED GFR 113 mL/min (>60); GLUCOSE RANDOM 153 mg/dL (74-106); MAGNESIUM 2.4 mg/dL (1.8-2.4); PHOSPHORUS 3.1 mg/dL (2.5-4.9); POTASSIUM,K 5.2 mmol/L (3.6-5.2); PROTEIN TOTAL,TP 6.5 g/dL (6.4-8.2); SODIUM,NA 137 mmol/L (140-148)
[2023-03-08 05:25] LABS: ANION GAP 11.2 mmol/L (5.0-14.0)
[2023-03-08] MEDS: Sucralfate Suspension 1 GM/10 ML Cup PO SCH ×4 (06:21→21:31)
[2023-03-08] MEDS: Scopolamine 1.5 MG Transdermal Patch TRDERM SCH (07:33)
[2023-03-08] MEDS ORDERED: Central Total Parenteral Nutrition Bag SCH (08:00)
[2023-03-08] MEDS ORDERED: Furosemide 20 MG/2 ML VIAL IVPUSH ONE (09:00)
[2023-03-08] MEDS: Fluconazole 100 MG Tab PO SCH (09:19)
[2023-03-08] MEDS: Linezolid 600 MG in Premix Bag 1 BAG IV SCH ×2 (09:19→21:31)
[2023-03-08] MEDS: Pantoprazole 40 MG Tab.CR PO SCH ×2 (09:19→21:31)
[2023-03-08] MEDS: Citalopram 20 MG Tab PO SCH (09:19)
[2023-03-08] MEDS: SCOPOLAMINE PATCH CHECK TOP SCH (09:20)
[2023-03-08] MEDS: 1: Amino Acids 5%/Dextrose 15% 1,000 ML with MVI, Adult with Vitamin K 10 ML, Zinc/Copp IV SCH ×6 (11:27→23:46)
[2023-03-08] MEDS: Dextrose 5%-Lactated Ringers 1,000 ML IV SCH (16:45)
[2023-03-08] MEDS: Melatonin 3 MG Tab PO SCH (21:31)
[2023-03-08] MEDS: Zolpidem 5 MG Tab PO SCH (21:34)
[2023-03-09] MEDS: Acetaminophen Soln 650 MG/20.3 ML UD Cup PO SCH ×4 (03:02→20:08)
[2023-03-09] MEDS: Hyoscyamine 0.125 MG Tab.SL SL PRN ×3 (03:10→20:08)
[2023-03-09] MEDS: Cyclobenzaprine 10 MG Tab PO PRN ×3 (03:53→21:09)
[2023-03-09] MEDS: hydrOXYzine HCl 25 MG Tab PO PRN ×4 (03:54→21:09)
[2023-03-09 04:13] LABS: HEMATOCRIT 31.9 % (34.3-46.0); HEMOGLOBIN 10.4 g/dL (11.2-15.5); MEAN CORPUSCULAR HEMOGLOBIN 30.4 pg (31.6-35.5); MEAN CORPUSCULAR HGB CONC 32.6 g/dL (31.6-35.5); MEAN CORPUSCULAR VOLUME 93.3 fL (81.4-99.0); RED BLOOD CELL COUNT 3.42 M/uL (3.77-5.24); WHITE BLOOD CELL COUNT,WBC 12.2 K/uL (3.2-11.0)
[2023-03-09 04:38] LABS: A/G RATIO 0.9 (1.2-2.2); ALANINE AMINOTRANSFERASE,ALT 219 U/L (12-78); ALBUMIN 3.2 g/dL (3.4-5.0); ALKALINE PHOSPHATASE 143 U/L (46-116); ASPARTATE AMNIOTRANSFERASE,AST 82 U/L (15-37); BILIRUBIN TOTAL 0.3 mg/dL (0.2-1.0); BLOOD UREA NITROGEN,BUN 24 mg/dL (7-18); CALCIUM 8.7 mg/dL (8.5-10.1); CARBON DIOXIDE,CO2 28 mmol/L (21-32); CHLORIDE,CL 103 mmol/L (100-108); CREATININE 0.5 mg/dL (0.6-1.0); EST CRCL DRUG DOSING (CG) 117.62 mL/min; ESTIMATED GFR 113 mL/min (>60); GLUCOSE RANDOM 114 mg/dL (74-106); POTASSIUM,K 4.5 mmol/L (3.6-5.2); PROTEIN TOTAL,TP 6.8 g/dL (6.4-8.2); SODIUM,NA 137 mmol/L (140-148)
[2023-03-09 04:53] LABS: ANION GAP 10.5 mmol/L (5.0-14.0)
[2023-03-09] MEDS: Sucralfate Suspension 1 GM/10 ML Cup PO SCH ×4 (05:30→21:11)
[2023-03-09] MEDS: HYDROmorphone/Normal Saline 6 MG/30 ML PCA Vial IV PRN ×3 (08:04→17:39)
[2023-03-09] MEDS: Citalopram 20 MG Tab PO SCH (09:09)
[2023-03-09] MEDS: Fluconazole 100 MG Tab PO SCH (09:09)
[2023-03-09] MEDS: Enoxaparin 30 MG/0.3 ML Syringe SUBCUT SCH (09:09)
[2023-03-09] MEDS: SCOPOLAMINE PATCH CHECK TOP SCH (09:09)
[2023-03-09] MEDS: Pantoprazole 40 MG Tab.CR PO SCH ×2 (09:10→21:11)
[2023-03-09] MEDS: Linezolid 600 MG in Premix Bag 1 BAG IV SCH (09:10)
[2023-03-09] MEDS ORDERED: Central Total Parenteral Nutrition Bag SCH (10:30)
[2023-03-09] MEDS: 1: Amino Acids 5%/Dextrose 15% 1,000 ML with MVI, Adult with Vitamin K 10 ML, Zinc/Copp IV SCH ×3 (12:52)
[2023-03-09] MEDS: Ampicillin/Sulbactam Na 3 GM in Sodium Chloride 0.9% 100 ML IV SCH ×2 (15:59→21:11)
[2023-03-09] MEDS: Ondansetron 4 MG Tab.DIS PO PRN (20:08)
[2023-03-09] MEDS: Melatonin 3 MG Tab PO SCH (21:10)
[2023-03-09] MEDS: Zolpidem 5 MG Tab PO SCH (21:18)
[2023-03-10] MEDS: hydrOXYzine HCl 25 MG Tab PO PRN ×6 (01:07→23:41)
[2023-03-10] MEDS: Acetaminophen Soln 650 MG/20.3 ML UD Cup PO SCH ×3 (01:08→16:02)
[2023-03-10] MEDS: HYDROmorphone/Normal Saline 6 MG/30 ML PCA Vial IV PRN ×4 (01:32→18:15)
[2023-03-10] MEDS: 1: Amino Acids 5%/Dextrose 15% 1,000 ML with MVI, Adult with Vitamin K 10 ML, Zinc/Copp IV SCH ×6 (02:12→15:14)
[2023-03-10] MEDS: Hyoscyamine 0.125 MG Tab.SL SL PRN ×4 (02:12→21:14)
[2023-03-10] MEDS: Ampicillin/Sulbactam Na 3 GM in Sodium Chloride 0.9% 100 ML IV SCH ×4 (03:55→21:23)
[2023-03-10] MEDS: Ondansetron 4 MG Tab.DIS PO PRN (04:04)
[2023-03-10 05:42] LABS: HEMATOCRIT 28.8 % (34.3-46.0); HEMOGLOBIN 9.5 g/dL (11.2-15.5); MEAN CORPUSCULAR HEMOGLOBIN 30.3 pg (31.6-35.5); MEAN CORPUSCULAR VOLUME 91.7 fL (81.4-99.0); RED BLOOD CELL COUNT 3.14 M/uL (3.77-5.24); WHITE BLOOD CELL COUNT,WBC 13.5 K/uL (3.2-11.0)
[2023-03-10] MEDS: Cyclobenzaprine 10 MG Tab PO PRN (05:47)
[2023-03-10] MEDS: Sucralfate Suspension 1 GM/10 ML Cup PO SCH ×4 (05:47→21:14)
[2023-03-10 06:02] LABS: CALCIUM 8.5 mg/dL (8.5-10.1); CREATININE 0.5 mg/dL (0.6-1.0); EST CRCL DRUG DOSING (CG) 118.43 mL/min; MAGNESIUM 1.3 mg/dL (1.8-2.4); PHOSPHORUS 5.9 mg/dL (2.5-4.9); POTASSIUM,K 4.6 mmol/L (3.6-5.2)
[2023-03-10 06:04] LABS: ANION GAP 10.6 mmol/L (5.0-14.0)
[2023-03-10] MEDS ORDERED: Magnesium Sulfate/Water 2 GM in Premix Bag 1 BAG IV ONE ×2 (08:00→08:45)
[2023-03-10] MEDS: Fluconazole 100 MG Tab PO SCH (08:50)
[2023-03-10] MEDS: SCOPOLAMINE PATCH CHECK TOP SCH (08:51)
[2023-03-10] MEDS: Enoxaparin 30 MG/0.3 ML Syringe SUBCUT SCH (08:52)
[2023-03-10] MEDS: Pantoprazole 40 MG Tab.CR PO SCH ×2 (08:52→21:14)
[2023-03-10] MEDS: Citalopram 20 MG Tab PO SCH (08:52)
[2023-03-10] MEDS ORDERED: Iopamidol 612 MG/ML 100 ML Bottle IV PRN (11:01)
[2023-03-10] MEDS ORDERED: Sodium Chloride 0.9% 10 ML Syringe FLUSH PRN (11:01)
[2023-03-10] MEDS ORDERED: Sodium Chloride 0.9% 50 ML IV SCH (11:15)
[2023-03-10] MEDS: tiZANidine 2 MG Tab PO PRN ×2 (15:13→21:14)
[2023-03-10] MEDS: Magnesium Sulfate/Water 2 GM in Premix Bag 1 BAG IV SCH ×2 (15:15→21:17)
[2023-03-10] MEDS ORDERED: Acetaminophen 325 MG Tab PO SCH (17:00)
[2023-03-10] MEDS: Zolpidem 5 MG Tab PO SCH (21:14)
[2023-03-10] MEDS: Melatonin 3 MG Tab PO SCH (21:15)
[2023-03-11] MEDS: Ampicillin/Sulbactam Na 3 GM in Sodium Chloride 0.9% 100 ML IV SCH ×4 (05:02→21:16)
[2023-03-11] MEDS: Hyoscyamine 0.125 MG Tab.SL SL PRN ×3 (05:05→19:18)
[2023-03-11] MEDS: hydrOXYzine HCl 25 MG Tab PO PRN ×5 (05:05→23:20)
[2023-03-11] MEDS: tiZANidine 2 MG Tab PO PRN ×3 (05:05→19:17)
[2023-03-11] MEDS: Acetaminophen Soln 650 MG/20.3 ML UD Cup PO SCH ×3 (05:19→21:13)
[2023-03-11 05:35] LABS: HEMATOCRIT 29.4 % (34.3-46.0); HEMOGLOBIN 10.5 g/dL (11.2-15.5); MEAN CORPUSCULAR HGB CONC 35.7 g/dL (31.6-35.5); MEAN CORPUSCULAR VOLUME 86.7 fL (81.4-99.0); RED BLOOD CELL COUNT 3.39 M/uL (3.77-5.24)
[2023-03-11 06:00] LABS: AMYLASE,BODY FLUID 11 U/L; AMYLASE,BODY FLUID 32 U/L
[2023-03-11 06:05] LABS: AMYLASE,BODY FLUID 1059 U/L
[2023-03-11] MEDS: Sucralfate Suspension 1 GM/10 ML Cup PO SCH ×4 (06:09→21:13)
[2023-03-11 06:36] LABS: A/G RATIO 0.8 (1.2-2.2); ALBUMIN 2.9 g/dL (3.4-5.0); BILIRUBIN DIRECT 0.11 mg/dL (0.0-0.2); BILIRUBIN INDIRECT 0.19; BILIRUBIN TOTAL 0.3 mg/dL (0.2-1.0); CALCIUM 8.5 mg/dL (8.5-10.1); CREATININE 0.6 mg/dL (0.6-1.0); EST CRCL DRUG DOSING (CG) 98.69 mL/min; MAGNESIUM 1.6 mg/dL (1.8-2.4); PHOSPHORUS 3.8 mg/dL (2.5-4.9); POTASSIUM,K 4.3 mmol/L (3.6-5.2); PROTEIN TOTAL,TP 6.5 g/dL (6.4-8.2)
[2023-03-11 06:37] LABS: ANION GAP 10.3 mmol/L (5.0-14.0)
[2023-03-11] MEDS: 1: Amino Acids 5%/Dextrose 15% 1,000 ML with MVI, Adult with Vitamin K 10 ML, Zinc/Copp IV SCH ×3 (07:30)
[2023-03-11] MEDS ORDERED: Magnesium Sulfate/Water 2 GM in Premix Bag 1 BAG IV ONE (08:00)
[2023-03-11] MEDS ORDERED: Central Total Parenteral Nutrition Bag SCH (09:00)
[2023-03-11] MEDS: Scopolamine 1.5 MG Transdermal Patch TRDERM SCH (09:01)
[2023-03-11] MEDS: Citalopram 20 MG Tab PO SCH (09:05)
[2023-03-11] MEDS: Enoxaparin 30 MG/0.3 ML Syringe SUBCUT SCH (09:06)
[2023-03-11] MEDS: SCOPOLAMINE PATCH CHECK TOP SCH (09:07)
[2023-03-11] MEDS: Pantoprazole 40 MG Tab.CR PO SCH ×2 (09:07→21:13)
[2023-03-11 09:10] LABS: AMYLASE BODY FLUID TYPE JP DRAINAGE #1
[2023-03-11] MEDS: HYDROmorphone/Normal Saline 6 MG/30 ML PCA Vial IV PRN ×2 (13:30→17:49)
[2023-03-11] MEDS: Ondansetron 4 MG Tab.DIS PO PRN (16:43)
[2023-03-11] MEDS: Melatonin 3 MG Tab PO SCH (21:13)
[2023-03-11] MEDS: Zolpidem 5 MG Tab PO SCH (21:16)
[2023-03-12] MEDS: 1: Amino Acids 5%/Dextrose 15% 1,000 ML with MVI, Adult with Vitamin K 10 ML, Zinc/Copp IV SCH ×3 (00:12)
[2023-03-12] MEDS: tiZANidine 2 MG Tab PO PRN ×4 (02:33→22:01)
[2023-03-12] MEDS: Hyoscyamine 0.125 MG Tab.SL SL PRN ×4 (02:34→20:30)
[2023-03-12] MEDS: Ampicillin/Sulbactam Na 3 GM in Sodium Chloride 0.9% 100 ML IV SCH ×4 (04:57→22:02)
[2023-03-12] MEDS: Acetaminophen Soln 650 MG/20.3 ML UD Cup PO SCH ×3 (05:06→22:02)
[2023-03-12] MEDS: hydrOXYzine HCl 25 MG Tab PO PRN ×4 (05:06→20:30)
[2023-03-12] MEDS: Sucralfate Suspension 1 GM/10 ML Cup PO SCH ×4 (05:07→22:02)
[2023-03-12] MEDS: Dextrose 5%-Lactated Ringers 1,000 ML IV SCH (05:09)
[2023-03-12 05:19] LABS: HEMATOCRIT 31.6 % (34.3-46.0); HEMOGLOBIN 10.5 g/dL (11.2-15.5); MEAN CORPUSCULAR HEMOGLOBIN 30.7 pg (31.6-35.5); MEAN CORPUSCULAR HGB CONC 33.2 g/dL (31.6-35.5); MEAN CORPUSCULAR VOLUME 92.4 fL (81.4-99.0); RED BLOOD CELL COUNT 3.42 M/uL (3.77-5.24); WHITE BLOOD CELL COUNT,WBC 11.1 K/uL (3.2-11.0)
[2023-03-12 05:36] LABS: C-REACTIVE PROTEIN 2.89 mg/dL (0.0-0.3); CALCIUM 8.2 mg/dL (8.5-10.1); CREATININE 0.5 mg/dL (0.6-1.0); EST CRCL DRUG DOSING (CG) 118.43 mL/min; MAGNESIUM 1.5 mg/dL (1.8-2.4); PHOSPHORUS 3.4 mg/dL (2.5-4.9); POTASSIUM,K 3.9 mmol/L (3.6-5.2)
[2023-03-12] MEDS: HYDROmorphone/Normal Saline 6 MG/30 ML PCA Vial IV PRN ×4 (08:41→23:37)
[2023-03-12] MEDS: Enoxaparin 30 MG/0.3 ML Syringe SUBCUT SCH (08:44)
[2023-03-12] MEDS: Pantoprazole 40 MG Tab.CR PO SCH ×2 (08:44→22:01)
[2023-03-12] MEDS: Citalopram 20 MG Tab PO SCH (08:44)
[2023-03-12] MEDS: SCOPOLAMINE PATCH CHECK TOP SCH (08:45)
[2023-03-12] MEDS ORDERED: Central Total Parenteral Nutrition Bag SCH (09:00)
[2023-03-12] MEDS: Magnesium Sulfate/Water 2 GM in Premix Bag 1 BAG IV SCH ×2 (10:13→13:57)
[2023-03-12] MEDS ORDERED: Magnesium Sulfate/Water 2 GM in Premix Bag 1 BAG IV SCH (10:30)
[2023-03-12] MEDS: Ondansetron 4 MG/2 ML SDV IVPUSH PRN (14:34)
[2023-03-12] MEDS ORDERED: 1: Amino Acids 5%/Dextrose 15% 1,000 ML with MVI, Adult with Vitamin K 10 ML, Zinc/Copp IV SCH ×3 (15:30)
[2023-03-12] MEDS: Zolpidem 5 MG Tab PO SCH (22:00)
[2023-03-12] MEDS: Melatonin 3 MG Tab PO SCH (22:01)
[2023-03-13] MEDS: Ondansetron 4 MG/2 ML SDV IVPUSH PRN (02:00)
[2023-03-13] MEDS: hydrOXYzine HCl 25 MG Tab PO PRN ×5 (02:00→21:31)
[2023-03-13] MEDS: tiZANidine 2 MG Tab PO PRN ×3 (04:54→17:19)
[2023-03-13] MEDS: Hyoscyamine 0.125 MG Tab.SL SL PRN ×4 (04:54→23:36)
[2023-03-13] MEDS: Ampicillin/Sulbactam Na 3 GM in Sodium Chloride 0.9% 100 ML IV SCH ×4 (04:54→22:20)
[2023-03-13 05:07] LABS: HEMATOCRIT 26.9 % (34.3-46.0); HEMOGLOBIN 9.3 g/dL (11.2-15.5); MEAN CORPUSCULAR HEMOGLOBIN 30.5 pg (31.6-35.5); MEAN CORPUSCULAR HGB CONC 34.6 g/dL (31.6-35.5); MEAN CORPUSCULAR VOLUME 88.2 fL (81.4-99.0); RED BLOOD CELL COUNT 3.05 M/uL (3.77-5.24); WHITE BLOOD CELL COUNT,WBC 7.1 K/uL (3.2-11.0)
[2023-03-13] MEDS: Sucralfate Suspension 1 GM/10 ML Cup PO SCH ×4 (05:08→21:32)
[2023-03-13] MEDS: Acetaminophen Soln 650 MG/20.3 ML UD Cup PO SCH ×3 (05:08→21:32)
[2023-03-13 05:25] LABS: CALCIUM 7.9 mg/dL (8.5-10.1); CREATININE 0.4 mg/dL (0.6-1.0); EST CRCL DRUG DOSING (CG) 148.04 mL/min; MAGNESIUM 1.5 mg/dL (1.8-2.4); POTASSIUM,K 5.3 mmol/L (3.6-5.2)
[2023-03-13 05:29] LABS: ANION GAP 14.3 mmol/L (5.0-14.0)
[2023-03-13] MEDS ORDERED: 1: AA 5%/Calcium/D15W/Lytes 1,000 ML with MVI, Adult with Vitamin K 10 ML, Zinc/Copper/M IV SCH ×6 (06:00→23:00)
[2023-03-13] MEDS ORDERED: Central Total Parenteral Nutrition Bag SCH (07:30)
[2023-03-13] MEDS: Enoxaparin 30 MG/0.3 ML Syringe SUBCUT SCH (08:22)
[2023-03-13] MEDS: Magnesium Sulfate/Water 2 GM in Premix Bag 1 BAG IV SCH ×3 (08:22→20:11)
[2023-03-13] MEDS: Ondansetron 4 MG Tab.DIS PO PRN ×3 (08:22→20:16)
[2023-03-13] MEDS: Pantoprazole 40 MG Tab.CR PO SCH ×2 (08:22→20:10)
[2023-03-13] MEDS: Citalopram 20 MG Tab PO SCH (08:22)
[2023-03-13] MEDS: SCOPOLAMINE PATCH CHECK TOP SCH (08:23)
[2023-03-13] MEDS: HYDROmorphone/Normal Saline 6 MG/30 ML PCA Vial IV PRN ×3 (08:39→22:16)
[2023-03-13] MEDS ORDERED: Lidocaine 2% 30 ML, Alum Hydrox/Mag Hydrox/Simeth 30 ML, diphenhydrAMINE 75 MG PO PRN ×3 (12:32)
[2023-03-13] MEDS: Melatonin 3 MG Tab PO SCH (20:10)
[2023-03-13] MEDS: Zolpidem 5 MG Tab PO SCH (21:31)
[2023-03-14] MEDS: Ondansetron 4 MG Tab.DIS PO PRN ×4 (02:01→15:43)
[2023-03-14] MEDS: hydrOXYzine HCl 25 MG Tab PO PRN ×5 (02:01→21:04)
[2023-03-14] MEDS: tiZANidine 2 MG Tab PO PRN ×3 (04:00→15:43)
[2023-03-14] MEDS: Magnesium Sulfate/Water 2 GM in Premix Bag 1 BAG IV SCH ×4 (04:01→20:17)
[2023-03-14] MEDS: Ampicillin/Sulbactam Na 3 GM in Sodium Chloride 0.9% 100 ML IV SCH ×4 (04:04→21:05)
[2023-03-14 04:28] LABS: HEMOGLOBIN 10.5 g/dL (11.2-15.5); MEAN CORPUSCULAR HEMOGLOBIN 30.3 pg (31.6-35.5); MEAN CORPUSCULAR HGB CONC 32.8 g/dL (31.6-35.5); MEAN CORPUSCULAR VOLUME 92.2 fL (81.4-99.0); RED BLOOD CELL COUNT 3.47 M/uL (3.77-5.24); WHITE BLOOD CELL COUNT,WBC 7.7 K/uL (3.2-11.0)
[2023-03-14 04:47] LABS: A/G RATIO 0.8 (1.2-2.2); ALANINE AMINOTRANSFERASE,ALT 52 U/L (12-78); ALBUMIN 2.8 g/dL (3.4-5.0); ALKALINE PHOSPHATASE 115 U/L (46-116); ASPARTATE AMNIOTRANSFERASE,AST 16 U/L (15-37); BILIRUBIN TOTAL 0.2 mg/dL (0.2-1.0); BLOOD UREA NITROGEN,BUN 16 mg/dL (7-18); CALCIUM 8.5 mg/dL (8.5-10.1); CARBON DIOXIDE,CO2 29 mmol/L (21-32); CHLORIDE,CL 103 mmol/L (100-108); CREATININE 0.5 mg/dL (0.6-1.0); EST CRCL DRUG DOSING (CG) 118.43 mL/min; ESTIMATED GFR 113 mL/min (>60); GLUCOSE RANDOM 123 mg/dL (74-106); MAGNESIUM 1.9 mg/dL (1.8-2.4); PHOSPHORUS 4.6 mg/dL (2.5-4.9); POTASSIUM,K 4.2 mmol/L (3.6-5.2); PROTEIN TOTAL,TP 6.5 g/dL (6.4-8.2); SODIUM,NA 139 mmol/L (140-148)
[2023-03-14 05:11] LABS: ANION GAP 11.2 mmol/L (5.0-14.0)
[2023-03-14] MEDS: Sucralfate Suspension 1 GM/10 ML Cup PO SCH ×4 (05:41→21:05)
[2023-03-14] MEDS: Acetaminophen Soln 650 MG/20.3 ML UD Cup PO SCH ×3 (05:41→21:05)
[2023-03-14] MEDS: Hyoscyamine 0.125 MG Tab.SL SL PRN ×3 (05:48→19:12)
[2023-03-14] MEDS: HYDROmorphone/Normal Saline 6 MG/30 ML PCA Vial IV PRN ×2 (06:22→14:15)
[2023-03-14] MEDS ORDERED: Central Total Parenteral Nutrition Bag SCH (07:30)
[2023-03-14] MEDS: Scopolamine 1.5 MG Transdermal Patch TRDERM SCH (07:32)
[2023-03-14] MEDS: Enoxaparin 30 MG/0.3 ML Syringe SUBCUT SCH (08:32)
[2023-03-14] MEDS: Pantoprazole 40 MG Tab.CR PO SCH ×2 (08:32→20:17)
[2023-03-14] MEDS: Citalopram 20 MG Tab PO SCH (08:32)
[2023-03-14] MEDS: SCOPOLAMINE PATCH CHECK TOP SCH (08:37)
[2023-03-14] MEDS ORDERED: diphenhydrAMINE 25 MG Cap PO PRN (10:21)
[2023-03-14] MEDS ORDERED: Ondansetron 4 MG/2 ML SDV IVPUSH PRN (10:21)
[2023-03-14] MEDS ORDERED: diphenhydrAMINE 50 MG/ML SDV IVPUSH PRN (10:21)
[2023-03-14] MEDS ORDERED: Naloxone 0.4 MG/ML SDV IVPUSH PRN (10:21)
[2023-03-14] MEDS: Dextrose 5%-Lactated Ringers 1,000 ML IV SCH (11:45)
[2023-03-14] MEDS: MVI, Adult with Vitamin K 10 ML, Zinc/Copper/Manganese/Selenium 1 ML in AA 5%/Calcium/D... IV SCH ×3 (18:08)
[2023-03-14] MEDS: Fat Emulsion 100 ML IV SCH (18:08)
[2023-03-14] MEDS: Melatonin 3 MG Tab PO SCH (20:17)
[2023-03-14] MEDS ORDERED: Zolpidem 5 MG Tab PO SCH (21:00)
[2023-03-15] MEDS: Hyoscyamine 0.125 MG Tab.SL SL PRN ×4 (02:51→21:10)
[2023-03-15] MEDS: hydrOXYzine HCl 25 MG Tab PO PRN ×4 (02:51→21:10)
[2023-03-15] MEDS: Magnesium Sulfate/Water 2 GM in Premix Bag 1 BAG IV SCH ×4 (02:52→21:12)
[2023-03-15] MEDS: Ondansetron 4 MG Tab.DIS PO PRN ×3 (02:56→14:25)
[2023-03-15 04:46] LABS: HEMATOCRIT 29.1 % (34.3-46.0); MEAN CORPUSCULAR HGB CONC 34.4 g/dL (31.6-35.5); MEAN CORPUSCULAR VOLUME 90.1 fL (81.4-99.0); RED BLOOD CELL COUNT 3.23 M/uL (3.77-5.24); WHITE BLOOD CELL COUNT,WBC 9.3 K/uL (3.2-11.0)
[2023-03-15] MEDS: Ampicillin/Sulbactam Na 3 GM in Sodium Chloride 0.9% 100 ML IV SCH ×4 (04:52→23:21)
[2023-03-15] MEDS: Sucralfate Suspension 1 GM/10 ML Cup PO SCH ×4 (05:00→21:12)
[2023-03-15] MEDS: Acetaminophen Soln 650 MG/20.3 ML UD Cup PO SCH ×3 (05:00→21:12)
[2023-03-15 05:09] LABS: CALCIUM 8.3 mg/dL (8.5-10.1); CREATININE 0.5 mg/dL (0.6-1.0); EST CRCL DRUG DOSING (CG) 118.43 mL/min; MAGNESIUM 2.4 mg/dL (1.8-2.4); PHOSPHORUS 4.1 mg/dL (2.5-4.9); POTASSIUM,K 3.8 mmol/L (3.6-5.2)
[2023-03-15] MEDS: HYDROmorphone/Normal Saline 6 MG/30 ML PCA Vial IV PRN ×2 (05:42→17:54)
[2023-03-15 06:02] LABS: ANION GAP 7.8 mmol/L (5.0-14.0)
[2023-03-15] MEDS ORDERED: Central Total Parenteral Nutrition Bag SCH (07:45)
[2023-03-15] MEDS: Pantoprazole 40 MG Tab.CR PO SCH ×2 (08:16→21:12)
[2023-03-15] MEDS: Citalopram 20 MG Tab PO SCH (08:16)
[2023-03-15] MEDS: Enoxaparin 30 MG/0.3 ML Syringe SUBCUT SCH (08:16)
[2023-03-15] MEDS: SCOPOLAMINE PATCH CHECK TOP SCH (08:21)
[2023-03-15] MEDS: tiZANidine 2 MG Tab PO PRN ×2 (10:20→19:44)
[2023-03-15] MEDS: Fat Emulsion 100 ML IV SCH (17:25)
[2023-03-15] MEDS: MVI, Adult with Vitamin K 10 ML, Zinc/Copper/Manganese/Selenium 1 ML in AA 5%/Calcium/D... IV SCH ×3 (17:25)
[2023-03-15] MEDS: Zolpidem 5 MG Tab PO SCH (21:10)
[2023-03-15] MEDS: Melatonin 3 MG Tab PO SCH (21:11)
[2023-03-16] MEDS: Magnesium Sulfate/Water 2 GM in Premix Bag 1 BAG IV SCH (02:22)
[2023-03-16] MEDS: hydrOXYzine HCl 25 MG Tab PO PRN ×5 (04:25→23:30)
[2023-03-16] MEDS: Hyoscyamine 0.125 MG Tab.SL SL PRN ×4 (04:25→23:30)
[2023-03-16] MEDS: Ampicillin/Sulbactam Na 3 GM in Sodium Chloride 0.9% 100 ML IV SCH ×4 (04:29→21:00)
[2023-03-16 05:04] LABS: HEMATOCRIT 29.5 % (34.3-46.0); HEMOGLOBIN 9.9 g/dL (11.2-15.5); MEAN CORPUSCULAR HEMOGLOBIN 30.5 pg (31.6-35.5); MEAN CORPUSCULAR HGB CONC 33.6 g/dL (31.6-35.5); MEAN CORPUSCULAR VOLUME 90.8 fL (81.4-99.0); RED BLOOD CELL COUNT 3.25 M/uL (3.77-5.24); WHITE BLOOD CELL COUNT,WBC 7.8 K/uL (3.2-11.0)
[2023-03-16] MEDS: Acetaminophen Soln 650 MG/20.3 ML UD Cup PO SCH ×3 (05:05→21:01)
[2023-03-16] MEDS: Sucralfate Suspension 1 GM/10 ML Cup PO SCH ×4 (05:05→21:01)
[2023-03-16 05:24] LABS: A/G RATIO 0.8 (1.2-2.2); ALANINE AMINOTRANSFERASE,ALT 31 U/L (12-78); ALBUMIN 2.6 g/dL (3.4-5.0); ALKALINE PHOSPHATASE 104 U/L (46-116); ASPARTATE AMNIOTRANSFERASE,AST 14 U/L (15-37); BILIRUBIN TOTAL 0.2 mg/dL (0.2-1.0); BLOOD UREA NITROGEN,BUN 18 mg/dL (7-18); CARBON DIOXIDE,CO2 30 mmol/L (21-32); CHLORIDE,CL 103 mmol/L (100-108); CREATININE 0.5 mg/dL (0.6-1.0); EST CRCL DRUG DOSING (CG) 118.37 mL/min; ESTIMATED GFR 113 mL/min (>60); GLUCOSE RANDOM 160 mg/dL (74-106); MAGNESIUM 2.8 mg/dL (1.8-2.4); PHOSPHORUS 3.9 mg/dL (2.5-4.9); POTASSIUM,K 4.2 mmol/L (3.6-5.2); SODIUM,NA 138 mmol/L (140-148)
[2023-03-16 05:25] LABS: ANION GAP 9.2 mmol/L (5.0-14.0)
[2023-03-16] MEDS ORDERED: Central Total Parenteral Nutrition Bag SCH (08:00)
[2023-03-16] MEDS: HYDROmorphone/Normal Saline 6 MG/30 ML PCA Vial IV PRN (09:01)
[2023-03-16] MEDS: tiZANidine 2 MG Tab PO PRN ×3 (09:03→21:00)
[2023-03-16] MEDS: Enoxaparin 30 MG/0.3 ML Syringe SUBCUT SCH (09:04)
[2023-03-16] MEDS: Citalopram 20 MG Tab PO SCH (09:04)
[2023-03-16] MEDS: SCOPOLAMINE PATCH CHECK TOP SCH (09:05)
[2023-03-16] MEDS: Pantoprazole 40 MG Tab.CR PO SCH ×2 (09:05→21:01)
[2023-03-16] MEDS: Dextrose 5%-Lactated Ringers 1,000 ML IV SCH (10:18)
[2023-03-16] MEDS ORDERED: Naloxone 0.4 MG/ML SDV IVPUSH PRN (10:46)
[2023-03-16] MEDS ORDERED: Ondansetron 4 MG/2 ML SDV IVPUSH PRN (10:46)
[2023-03-16] MEDS ORDERED: diphenhydrAMINE 25 MG Cap PO PRN (10:46)
[2023-03-16] MEDS ORDERED: diphenhydrAMINE 50 MG/ML SDV IVPUSH PRN (10:46)
[2023-03-16] MEDS: Fat Emulsion 100 ML IV SCH (18:22)
[2023-03-16] MEDS: MVI, Adult with Vitamin K 10 ML, Zinc/Copper/Manganese/Selenium 1 ML in AA 5%/Calcium/D... IV SCH ×3 (18:23)
[2023-03-16] MEDS: Zolpidem 5 MG Tab PO SCH (21:00)
[2023-03-16] MEDS: Melatonin 3 MG Tab PO SCH (21:01)
[2023-03-17] MEDS: tiZANidine 2 MG Tab PO PRN ×4 (03:04→23:31)
[2023-03-17] MEDS: Ampicillin/Sulbactam Na 3 GM in Sodium Chloride 0.9% 100 ML IV SCH ×4 (03:05→23:22)
[2023-03-17 04:21] LABS: HEMATOCRIT 28.9 % (34.3-46.0); HEMOGLOBIN 9.8 g/dL (11.2-15.5); MEAN CORPUSCULAR HEMOGLOBIN 30.8 pg (31.6-35.5); MEAN CORPUSCULAR HGB CONC 33.9 g/dL (31.6-35.5); MEAN CORPUSCULAR VOLUME 90.9 fL (81.4-99.0); RED BLOOD CELL COUNT 3.18 M/uL (3.77-5.24); WHITE BLOOD CELL COUNT,WBC 6.6 K/uL (3.2-11.0)
[2023-03-17] MEDS: hydrOXYzine HCl 25 MG Tab PO PRN ×4 (04:38→19:53)
[2023-03-17 04:52] LABS: A/G RATIO 0.7 (1.2-2.2); ALANINE AMINOTRANSFERASE,ALT 34 U/L (12-78); ALBUMIN 2.4 g/dL (3.4-5.0); ALKALINE PHOSPHATASE 91 U/L (46-116); ANION GAP 7.4 mmol/L (5.0-14.0); ASPARTATE AMNIOTRANSFERASE,AST 11 U/L (15-37); BILIRUBIN TOTAL 0.2 mg/dL (0.2-1.0); BLOOD UREA NITROGEN,BUN 17 mg/dL (7-18); CALCIUM 8.1 mg/dL (8.5-10.1); CARBON DIOXIDE,CO2 30 mmol/L (21-32); CHLORIDE,CL 105 mmol/L (100-108); CREATININE 0.5 mg/dL (0.6-1.0); EST CRCL DRUG DOSING (CG) 118.37 mL/min; ESTIMATED GFR 113 mL/min (>60); GLUCOSE RANDOM 136 mg/dL (74-106); MAGNESIUM 1.6 mg/dL (1.8-2.4); PHOSPHORUS 4.4 mg/dL (2.5-4.9); PROTEIN TOTAL,TP 5.8 g/dL (6.4-8.2); SODIUM,NA 142 mmol/L (140-148)
[2023-03-17] MEDS: HYDROmorphone/Normal Saline 6 MG/30 ML PCA Vial IV PRN ×2 (05:06→19:42)
[2023-03-17] MEDS: Acetaminophen Soln 650 MG/20.3 ML UD Cup PO SCH ×3 (05:07→21:25)
[2023-03-17] MEDS: Sucralfate Suspension 1 GM/10 ML Cup PO SCH ×4 (05:07→21:24)
[2023-03-17] MEDS ORDERED: Central Total Parenteral Nutrition Bag SCH (07:30)
[2023-03-17] MEDS: Hyoscyamine 0.125 MG Tab.SL SL PRN ×3 (08:15→23:31)
[2023-03-17] MEDS: Magnesium Sulfate/Water 2 GM in Premix Bag 1 BAG IV SCH ×3 (08:20→21:24)
[2023-03-17] MEDS: Scopolamine 1.5 MG Transdermal Patch TRDERM SCH (08:21)
[2023-03-17] MEDS: Pantoprazole 40 MG Tab.CR PO SCH ×2 (08:22→21:25)
[2023-03-17] MEDS: SCOPOLAMINE PATCH CHECK TOP SCH (08:22)
[2023-03-17] MEDS: Citalopram 20 MG Tab PO SCH (08:22)
[2023-03-17] MEDS: Enoxaparin 30 MG/0.3 ML Syringe SUBCUT SCH (08:22)
[2023-03-17] MEDS ORDERED: Iopamidol 612 MG/ML 100 ML Bottle IV ONE (10:51)
[2023-03-17] MEDS ORDERED: Sodium Chloride 0.9% 50 ML IV SCH (11:00)
[2023-03-17] MEDS: Ondansetron 4 MG/2 ML SDV IVPUSH PRN (14:08)
[2023-03-17] MEDS: MVI, Adult with Vitamin K 10 ML, Zinc/Copper/Manganese/Selenium 1 ML in AA 5%/Calcium/D... IV SCH ×3 (18:05)
[2023-03-17] MEDS: Fat Emulsion 100 ML IV SCH (18:06)
[2023-03-17] MEDS: Zolpidem 5 MG Tab PO SCH (21:24)
[2023-03-17] MEDS: Melatonin 3 MG Tab PO SCH (21:25)
[2023-03-18] MEDS: hydrOXYzine HCl 25 MG Tab PO PRN ×5 (02:48→20:12)
[2023-03-18] MEDS: Ampicillin/Sulbactam Na 3 GM in Sodium Chloride 0.9% 100 ML IV SCH ×4 (03:00→23:23)
[2023-03-18] MEDS: Magnesium Sulfate/Water 2 GM in Premix Bag 1 BAG IV SCH ×4 (03:34→21:09)
[2023-03-18 04:43] LABS: MEAN CORPUSCULAR HEMOGLOBIN 30.5 pg (31.6-35.5); MEAN CORPUSCULAR HGB CONC 33.3 g/dL (31.6-35.5); MEAN CORPUSCULAR VOLUME 91.5 fL (81.4-99.0); RED BLOOD CELL COUNT 2.95 M/uL (3.77-5.24); WHITE BLOOD CELL COUNT,WBC 8.2 K/uL (3.2-11.0)
[2023-03-18 05:03] LABS: A/G RATIO 0.7 (1.2-2.2); ALANINE AMINOTRANSFERASE,ALT 23 U/L (12-78); ALBUMIN 2.3 g/dL (3.4-5.0); ALKALINE PHOSPHATASE 87 U/L (46-116); ANION GAP 8.4 mmol/L (5.0-14.0); ASPARTATE AMNIOTRANSFERASE,AST 13 U/L (15-37); BILIRUBIN TOTAL 0.2 mg/dL (0.2-1.0); BLOOD UREA NITROGEN,BUN 18 mg/dL (7-18); CALCIUM 7.8 mg/dL (8.5-10.1); CARBON DIOXIDE,CO2 29 mmol/L (21-32); CHLORIDE,CL 105 mmol/L (100-108); CREATININE 0.5 mg/dL (0.6-1.0); EST CRCL DRUG DOSING (CG) 115.55 mL/min; ESTIMATED GFR 113 mL/min (>60); GLUCOSE RANDOM 122 mg/dL (74-106); PHOSPHORUS 4.5 mg/dL (2.5-4.9); POTASSIUM,K 3.8 mmol/L (3.6-5.2); PROTEIN TOTAL,TP 5.5 g/dL (6.4-8.2); SODIUM,NA 142 mmol/L (140-148)
[2023-03-18] MEDS: tiZANidine 2 MG Tab PO PRN ×4 (05:37→23:47)
[2023-03-18] MEDS: Hyoscyamine 0.125 MG Tab.SL SL PRN ×4 (05:37→23:47)
[2023-03-18] MEDS: Sucralfate Suspension 1 GM/10 ML Cup PO SCH ×4 (05:38→21:09)
[2023-03-18] MEDS: Acetaminophen Soln 650 MG/20.3 ML UD Cup PO SCH ×3 (05:38→21:09)
[2023-03-18] MEDS ORDERED: Central Total Parenteral Nutrition Bag SCH (08:00)
[2023-03-18] MEDS: Citalopram 20 MG Tab PO SCH (09:30)
[2023-03-18] MEDS: Pantoprazole 40 MG Tab.CR PO SCH ×2 (09:30→21:10)
[2023-03-18] MEDS: Enoxaparin 30 MG/0.3 ML Syringe SUBCUT SCH (09:30)
[2023-03-18] MEDS: Ondansetron 4 MG/2 ML SDV IVPUSH PRN (10:13)
[2023-03-18] MEDS: Acetaminophen/Codeine 300-30 MG Tab PO PRN ×3 (11:49→20:12)
[2023-03-18] MEDS: SCOPOLAMINE PATCH CHECK TOP SCH (13:40)
[2023-03-18] MEDS: Fat Emulsion 100 ML IV SCH (17:37)
[2023-03-18] MEDS: MVI, Adult with Vitamin K 10 ML, Zinc/Copper/Manganese/Selenium 1 ML in AA 5%/Calcium/D... IV SCH ×3 (17:37)
[2023-03-18] MEDS: Melatonin 3 MG Tab PO SCH (21:09)
[2023-03-18] MEDS: Zolpidem 5 MG Tab PO SCH (21:10)
[2023-03-18] MEDS ORDERED: diphenhydrAMINE 25 MG Cap PO ONE (23:06)
[2023-03-19] MEDS: hydrOXYzine HCl 25 MG Tab PO PRN ×6 (00:15→21:54)
[2023-03-19] MEDS: Acetaminophen/Codeine 300-30 MG Tab PO PRN ×6 (00:16→23:28)
[2023-03-19] MEDS: Magnesium Sulfate/Water 2 GM in Premix Bag 1 BAG IV SCH ×4 (02:09→21:28)
[2023-03-19] MEDS: Ondansetron 4 MG/2 ML SDV IVPUSH PRN ×3 (03:52→16:45)
[2023-03-19] MEDS: Ampicillin/Sulbactam Na 3 GM in Sodium Chloride 0.9% 100 ML IV SCH ×2 (04:27→10:43)
[2023-03-19] MEDS ORDERED: diphenhydrAMINE 25 MG Cap PO PRN (05:00)
[2023-03-19 05:15] LABS: HEMATOCRIT 27.1 % (34.3-46.0); HEMOGLOBIN 9.1 g/dL (11.2-15.5); MEAN CORPUSCULAR HEMOGLOBIN 30.3 pg (31.6-35.5); MEAN CORPUSCULAR HGB CONC 33.6 g/dL (31.6-35.5); MEAN CORPUSCULAR VOLUME 90.3 fL (81.4-99.0); WHITE BLOOD CELL COUNT,WBC 9.5 K/uL (3.2-11.0)
[2023-03-19 05:33] LABS: A/G RATIO 0.7 (1.2-2.2); ALANINE AMINOTRANSFERASE,ALT 21 U/L (12-78); ALBUMIN 2.5 g/dL (3.4-5.0); ALKALINE PHOSPHATASE 90 U/L (46-116); ANION GAP 9.2 mmol/L (5.0-14.0); ASPARTATE AMNIOTRANSFERASE,AST 14 U/L (15-37); BILIRUBIN TOTAL 0.2 mg/dL (0.2-1.0); BLOOD UREA NITROGEN,BUN 16 mg/dL (7-18); CALCIUM 7.8 mg/dL (8.5-10.1); CARBON DIOXIDE,CO2 28 mmol/L (21-32); CHLORIDE,CL 106 mmol/L (100-108); CREATININE 0.5 mg/dL (0.6-1.0); EST CRCL DRUG DOSING (CG) 116.96 mL/min; ESTIMATED GFR 113 mL/min (>60); GLUCOSE RANDOM 128 mg/dL (74-106); MAGNESIUM 2.7 mg/dL (1.8-2.4); PHOSPHORUS 3.8 mg/dL (2.5-4.9); POTASSIUM,K 3.7 mmol/L (3.6-5.2); SODIUM,NA 143 mmol/L (140-148)
[2023-03-19] MEDS: Sucralfate Suspension 1 GM/10 ML Cup PO SCH ×4 (05:51→21:28)
[2023-03-19] MEDS: tiZANidine 2 MG Tab PO PRN ×3 (05:51→17:45)
[2023-03-19] MEDS: Hyoscyamine 0.125 MG Tab.SL SL PRN ×3 (05:51→17:45)
[2023-03-19] MEDS ORDERED: Central Total Parenteral Nutrition Bag SCH (07:45)
[2023-03-19] MEDS: Enoxaparin 30 MG/0.3 ML Syringe SUBCUT SCH (09:40)
[2023-03-19] MEDS: Pantoprazole 40 MG Tab.CR PO SCH ×2 (09:40→21:28)
[2023-03-19] MEDS: Citalopram 20 MG Tab PO SCH (09:40)
[2023-03-19] MEDS: SCOPOLAMINE PATCH CHECK TOP SCH (09:43)
[2023-03-19] MEDS: LORazepam 0.5 MG Tab PO PRN ×4 (11:04→23:28)
[2023-03-19] MEDS: Dextrose 5%-Lactated Ringers 1,000 ML IV SCH (15:04)
[2023-03-19] MEDS: Fat Emulsion 100 ML IV SCH (17:48)
[2023-03-19] MEDS: MVI, Adult with Vitamin K 10 ML, Zinc/Copper/Manganese/Selenium 1 ML in AA 5%/Calcium/D... IV SCH ×3 (17:48)
[2023-03-19] MEDS: Zolpidem 5 MG Tab PO SCH (21:28)
[2023-03-19] MEDS: Melatonin 3 MG Tab PO SCH (21:28)
[2023-03-20] MEDS: tiZANidine 2 MG Tab PO PRN ×4 (03:33→22:21)
[2023-03-20] MEDS: Magnesium Sulfate/Water 2 GM in Premix Bag 1 BAG IV SCH (03:33)
[2023-03-20] MEDS: Hyoscyamine 0.125 MG Tab.SL SL PRN (03:33)
[2023-03-20] MEDS: LORazepam 0.5 MG Tab PO PRN ×5 (03:57→22:21)
[2023-03-20] MEDS: Acetaminophen/Codeine 300-30 MG Tab PO PRN ×5 (03:57→22:21)
[2023-03-20 05:02] LABS: HEMATOCRIT 27.9 % (34.3-46.0); HEMOGLOBIN 9.3 g/dL (11.2-15.5); MEAN CORPUSCULAR HEMOGLOBIN 30.3 pg (31.6-35.5); MEAN CORPUSCULAR HGB CONC 33.3 g/dL (31.6-35.5); MEAN CORPUSCULAR VOLUME 90.9 fL (81.4-99.0); RED BLOOD CELL COUNT 3.07 M/uL (3.77-5.24); WHITE BLOOD CELL COUNT,WBC 8.5 K/uL (3.2-11.0)
[2023-03-20 05:22] LABS: A/G RATIO 0.7 (1.2-2.2); ALANINE AMINOTRANSFERASE,ALT 18 U/L (12-78); ALBUMIN 2.4 g/dL (3.4-5.0); ALKALINE PHOSPHATASE 94 U/L (46-116); ANION GAP 6.3 mmol/L (5.0-14.0); ASPARTATE AMNIOTRANSFERASE,AST 13 U/L (15-37); BILIRUBIN TOTAL 0.2 mg/dL (0.2-1.0); BLOOD UREA NITROGEN,BUN 15 mg/dL (7-18); CALCIUM 7.8 mg/dL (8.5-10.1); CARBON DIOXIDE,CO2 30 mmol/L (21-32); CHLORIDE,CL 107 mmol/L (100-108); CREATININE 0.6 mg/dL (0.6-1.0); EST CRCL DRUG DOSING (CG) 96.95 mL/min; ESTIMATED GFR 108 mL/min (>60); GLUCOSE RANDOM 160 mg/dL (74-106); MAGNESIUM 2.7 mg/dL (1.8-2.4); PHOSPHORUS 3.9 mg/dL (2.5-4.9); POTASSIUM,K 3.8 mmol/L (3.6-5.2); PROTEIN TOTAL,TP 5.8 g/dL (6.4-8.2); SODIUM,NA 143 mmol/L (140-148)
[2023-03-20] MEDS: Sucralfate Suspension 1 GM/10 ML Cup PO SCH ×4 (05:57→21:23)
[2023-03-20] MEDS: hydrOXYzine HCl 25 MG Tab PO PRN ×2 (06:03→10:38)
[2023-03-20] MEDS ORDERED: Central Total Parenteral Nutrition Bag SCH (07:00)
[2023-03-20] MEDS: Citalopram 20 MG Tab PO SCH (09:12)
[2023-03-20] MEDS: SCOPOLAMINE PATCH CHECK TOP SCH (09:12)
[2023-03-20] MEDS: Scopolamine 1.5 MG Transdermal Patch TRDERM SCH (09:12)
[2023-03-20] MEDS: Enoxaparin 30 MG/0.3 ML Syringe SUBCUT SCH (09:12)
[2023-03-20] MEDS: Pantoprazole 40 MG Tab.CR PO SCH ×2 (09:12→21:23)
[2023-03-20] MEDS: Ondansetron 4 MG/2 ML SDV IVPUSH PRN (09:24)
[2023-03-20] MEDS: Fat Emulsion 100 ML IV SCH (17:58)
[2023-03-20] MEDS: MVI, Adult with Vitamin K 10 ML, Zinc/Copper/Manganese/Selenium 1 ML in AA 5%/Calcium/D... IV SCH ×3 (17:58)
[2023-03-20] MEDS: Melatonin 3 MG Tab PO SCH (21:22)
[2023-03-20] MEDS: Zolpidem 5 MG Tab PO SCH (21:23)
[2023-03-21] MEDS: Acetaminophen/Codeine 300-30 MG Tab PO PRN ×2 (03:54→08:04)
[2023-03-21] MEDS: LORazepam 0.5 MG Tab PO PRN ×2 (03:54→08:05)
[2023-03-21] MEDS: hydrOXYzine HCl 25 MG Tab PO PRN (04:00)
[2023-03-21 05:57] VITALS: BP 104/68; PULSE 76
[2023-03-21] MEDS: Sucralfate Suspension 1 GM/10 ML Cup PO SCH (05:57)
[2023-03-21] MEDS: tiZANidine 2 MG Tab PO PRN (05:57)
[2023-03-21 06:21] LABS: HEMATOCRIT 29.5 % (34.3-46.0); HEMOGLOBIN 9.8 g/dL (11.2-15.5); MEAN CORPUSCULAR HEMOGLOBIN 30.5 pg (31.6-35.5); MEAN CORPUSCULAR HGB CONC 33.2 g/dL (31.6-35.5); MEAN CORPUSCULAR VOLUME 91.9 fL (81.4-99.0); RED BLOOD CELL COUNT 3.21 M/uL (3.77-5.24); WHITE BLOOD CELL COUNT,WBC 9.3 K/uL (3.2-11.0)
[2023-03-21 06:31] LABS: A/G RATIO 0.7 (1.2-2.2); ALANINE AMINOTRANSFERASE,ALT 20 U/L (12-78); ALBUMIN 2.7 g/dL (3.4-5.0); ALKALINE PHOSPHATASE 102 U/L (46-116); ASPARTATE AMNIOTRANSFERASE,AST 15 U/L (15-37); BILIRUBIN TOTAL 0.3 mg/dL (0.2-1.0); BLOOD UREA NITROGEN,BUN 17 mg/dL (7-18); CALCIUM 8.2 mg/dL (8.5-10.1); CARBON DIOXIDE,CO2 29 mmol/L (21-32); CHLORIDE,CL 105 mmol/L (100-108); CREATININE 0.6 mg/dL (0.6-1.0); ESTIMATED GFR 108 mL/min (>60); GLUCOSE RANDOM 112 mg/dL (74-106); MAGNESIUM 1.6 mg/dL (1.8-2.4); PHOSPHORUS 4.7 mg/dL (2.5-4.9); POTASSIUM,K 4.3 mmol/L (3.6-5.2); PROTEIN TOTAL,TP 6.4 g/dL (6.4-8.2); SODIUM,NA 142 mmol/L (140-148)
[2023-03-21] MEDS ORDERED: Central Total Parenteral Nutrition Bag SCH (07:15)
[2023-03-21] MEDS: Ondansetron 4 MG/2 ML SDV IVPUSH PRN (07:31)
[2023-03-21] MEDS: Pantoprazole 40 MG Tab.CR PO SCH (08:04)
[2023-03-21] MEDS: Enoxaparin 30 MG/0.3 ML Syringe SUBCUT SCH (08:04)
[2023-03-21] MEDS: SCOPOLAMINE PATCH CHECK TOP SCH (08:04)
[2023-03-21] MEDS: Citalopram 20 MG Tab PO SCH (08:04)
== END 2023-03-21 10:38 | disposition home health service (06) | DRG 223 ==
LOC: JP.ED 10:11 → JP.MS 13:27 → OBSVTOIN 02-24 08:17
PROVIDERS: ADMIT Surgery; ATTEND Surgery
PROC: 0D9A0ZZ Drainage of Jejunum, Open Approach (ICD-10-PCS; 2023-02-25)
PROC: 0W9G0ZZ Drainage of Peritoneal Cavity, Open Approach (ICD-10-PCS; 2023-02-25)
PROC: 0WQF0ZZ Repair Abdominal Wall, Open Approach (ICD-10-PCS; 2023-02-28)
PROC: 0DJ08ZZ Inspection of Upper Intestinal Tract, Via Natural or Artificial Opening Endoscopic (ICD-10-PCS; 2023-03-02)
PROC: 0W9F0ZZ Drainage of Abdominal Wall, Open Approach (ICD-10-PCS; principal; 2023-03-06 07:00)
PROC: 0D980ZZ Drainage of Small Intestine, Open Approach (ICD-10-PCS; principal; 2023-03-06 07:00)
DX: K91.89 Other postprocedural complications and disorders of digestive system (principal); L02.211 Cutaneous abscess of abdominal wall; J18.9 Pneumonia, unspecified organism; E46 Unspecified protein-calorie malnutrition; I10 Essential (primary) hypertension; K21.9 Gastro-esophageal reflux disease without esophagitis; F32.A Depression, unspecified; F41.9 Anxiety disorder, unspecified; D64.9 Anemia, unspecified; Z90.721 Acquired absence of ovaries, unilateral; M62.82 Rhabdomyolysis; E87.6 Hypokalemia; K20.90 Esophagitis, unspecified without bleeding; G89.29 Other chronic pain; Z79.899 Other long term (current) drug therapy; Z98.890 Other specified postprocedural states; Z87.442 Personal history of urinary calculi; Z87.81 Personal history of (healed) traumatic fracture; Z90.89 Acquired absence of other organs; Z90.710 Acquired absence of both cervix and uterus; Z90.79 Acquired absence of other genital organ(s); Z90.722 Acquired absence of ovaries, bilateral; Z90.49 Acquired absence of other specified parts of digestive tract; Z93.4 Other artificial openings of gastrointestinal tract status; Z93.1 Gastrostomy status; Z98.84 Bariatric surgery status; Z68.20 Body mass index [BMI] 20.0-20.9, adult; Z87.891 Personal history of nicotine dependence
CPT/HCPCS: 0241U; 36415; 36430; 71046; 71046-26; 71260; 71275; 74177; 74177-26; 80048; 80053; 80076; 80305-QW; 81001; 82150; 82550; 83550; 83605; 83690; 83735; 83880; 84100; 84145; 84450; 84460; 84484; 85025; 85027; 86140; 86850; 86900; 86901; 86920; 86922; 87070; 87075; 87077; 87186; 87205; 87493; 88307; 93005; 93010; 93971-26; 93971-26-LT; 93971-LT; 93971-RT; 94640; 96361; 96365; 96366; 96367; 96374; 96375; 96376; 99285; 99285-25; A9270-GY; G0378; J0131; J0171; J0295; J0330; J1100; J1170; J1650; J1790; J1940; J1956; J2020; J2185; J2270; J2405; J2704; J2710; J2795; J3010; J3475; J3480; J3490; J7120; J7121; P9016; P9047; Q0162; Q9967

== ENCOUNTER 2023-03-23 08:55 | Emergency (ER) | payer BC ==
[2023-03-23] MEDS ORDERED: Sodium Chloride 0.9% 10 ML Syringe FLUSH PRN (09:54)
[2023-03-23] MEDS ORDERED: Ondansetron 4 MG/2 ML SDV IVPUSH ONE (09:55)
[2023-03-23] MEDS ORDERED: Prochlorperazine 10 MG/2 ML SDV IVPUSH ONE (09:56)
[2023-03-23 10:10] LABS: BASOPHILS PERCENT AUTO 0.2 % (0.1-1.3); EOSINOPHILS PERCENT AUTO 0.1 % (0.0-5.4); HEMOGLOBIN 11.7 g/dL (11.2-15.5); IMMATURE GRAN ABSOLUTE AUTO 0.03 K/uL (0.00-0.23); IMMATURE GRAN PERCENT AUTO 0.4 % (0.0-0.7); LYMPHOCYTES ABSOLUTE AUTO 2.23 K/uL (0.8-3.3); LYMPHOCYTES PERCENT AUTO 26.4 % (11.4-47.7); MEAN CORPUSCULAR HEMOGLOBIN 30.5 pg (31.6-35.5); MEAN CORPUSCULAR HGB CONC 34.4 g/dL (31.6-35.5); MEAN CORPUSCULAR VOLUME 88.8 fL (81.4-99.0); MONOCYTES ABSOLUTE AUTO 0.62 K/uL (0.20-0.90); MONOCYTES PERCENT AUTO 7.3 % (3.3-12.6); NEUTROPHILS ABSOLUTE AUTO 5.55 K/uL (1.0-7.6); NEUTROPHILS PERCENT AUTO 65.6 % (40.0-78.1); PLATELET COUNT,PLT 636 K/uL (130-375); RED BLOOD CELL COUNT 3.83 M/uL (3.77-5.24); WHITE BLOOD CELL COUNT,WBC 8.5 K/uL (3.2-11.0)
[2023-03-23 10:16] LABS: BASOPHILS ABSOLUTE AUTO 0.02 K/uL (0.00-0.10); EOSINOPHILS ABSOLUTE AUTO 0.01 K/uL (0.00-0.40)
[2023-03-23 10:32] LABS: A/G RATIO 0.8 (1.2-2.2); ALANINE AMINOTRANSFERASE,ALT 29 U/L (12-78); ALBUMIN 3.4 g/dL (3.4-5.0); ALKALINE PHOSPHATASE 140 U/L (46-116); ASPARTATE AMNIOTRANSFERASE,AST 15 U/L (15-37); BILIRUBIN TOTAL 0.5 mg/dL (0.2-1.0); BLOOD UREA NITROGEN,BUN 27 mg/dL (7-18); C-REACTIVE PROTEIN 0.76 mg/dL (0.0-0.3); CALCIUM 8.9 mg/dL (8.5-10.1); CARBON DIOXIDE,CO2 23 mmol/L (21-32); CHLORIDE,CL 101 mmol/L (100-108); CREATININE 0.8 mg/dL (0.6-1.0); EST CRCL DRUG DOSING (CG) 70.68 mL/min; ESTIMATED GFR 89 mL/min (>60); GLUCOSE RANDOM 170 mg/dL (74-106); POTASSIUM,K 3.5 mmol/L (3.6-5.2); PROTEIN TOTAL,TP 7.6 g/dL (6.4-8.2); SODIUM,NA 138 mmol/L (140-148)
[2023-03-23 10:34] LABS: MAGNESIUM 1.6 mg/dL (1.8-2.4); PHOSPHORUS 3.4 mg/dL (2.5-4.9)
[2023-03-23 10:35] LABS: ANION GAP 17.5 mmol/L (5.0-14.0)
[2023-03-23 10:37] VITALS: BP 119/67; PULSE 69
[2023-03-23] MEDS ORDERED: Magnesium Oxide 400 MG Tab PO ONE (10:39)
[2023-03-23] MEDS ORDERED: Potassium Chloride 20 MEQ Tab.ER PO ONE (10:40)
[2023-03-23] MEDS ORDERED: Lactated Ringers 1,000 ML IV ONE (10:40)
[2023-03-23] MEDS ORDERED: droPERidol 5 MG/2 ML SDV IVPUSH ONE (10:47)
[2023-03-23] MEDS ORDERED: Magnesium Sulfate/Water 2 GM in Premix Bag 1 BAG IV ONE (10:48)
[2023-03-23] MEDS ORDERED: Potassium Chloride 10 MEQ in Premix Bag 2 BAG IV ONE (10:48)
[2023-03-23] MEDS ORDERED: Sodium Chloride 0.9% 1,000 ML IV ONE (10:49)
[2023-03-23] MEDS: Potassium Chloride 10 MEQ in Premix Bag 1 BAG IV SCH ×2 (11:14→12:17)
== END 2023-03-23 13:44 | disposition home or self-care (01) ==
LOC: JP.ED 08:55
DX: E86.0 Dehydration (principal); E87.6 Hypokalemia; E83.42 Hypomagnesemia; R10.84 Generalized abdominal pain; G89.18 Other acute postprocedural pain; K21.9 Gastro-esophageal reflux disease without esophagitis; I10 Essential (primary) hypertension; Z79.899 Other long term (current) drug therapy
CPT/HCPCS: 36415; 74019; 74019-26; 80053; 83735; 84100; 85025; 86140; 96365; 96366; 96368; 96375; 99283; 99284-25; J0780; J1790; J2405; J3475; J3480; J3490; J7030

== ENCOUNTER 2023-03-27 14:20 | Inpatient (IN) | payer BC ==
[2023-03-27] MEDS ORDERED: Nicotine 14 MG/24 Hr Patch TRDERM PRN (17:00)
[2023-03-27] MEDS ORDERED: diphenhydrAMINE 25 MG Cap PO PRN (17:00)
[2023-03-27] MEDS ORDERED: MVI, Adult with Vitamin K 10 ML, Magnesium Sulfate 2 GM, Folic Acid 1 MG, Thiamine 100 ... IV ONE ×5 (17:00)
[2023-03-27] MEDS ORDERED: diphenhydrAMINE 50 MG/ML SDV IVPUSH PRN (17:00)
[2023-03-27 18:02] LABS: CORONAVIRUS COVID-19 NAA NEGATIVE (NEGATIVE); INFLUENZA A NAA NEGATIVE (NEGATIVE); INFLUENZA B NAA NEGATIVE (NEGATIVE); RESPIRATORY SYNCYTIAL VIR NAA NEGATIVE (NEGATIVE)
[2023-03-27] MEDS: Ondansetron 4 MG/2 ML SDV IVPUSH PRN (18:05)
[2023-03-27] MEDS: Acetaminophen/Codeine 300-30 MG Tab PO PRN ×2 (18:15→22:18)
[2023-03-27] MEDS: Scopolamine 1.5 MG Transdermal Patch TOP PRN (18:19)
[2023-03-27] MEDS ORDERED: Sodium Chloride 0.9% 10 ML Syringe FLUSH PRN (18:25)
[2023-03-27] MEDS: Promethazine 12.5 MG in Sodium Chloride 0.9% 50 ML IV PRN (22:17)
[2023-03-28] MEDS: Sodium Chloride 0.9% 1,000 ML IV SCH ×3 (03:55→23:22)
[2023-03-28] MEDS: Acetaminophen/Codeine 300-30 MG Tab PO PRN ×5 (04:37→22:02)
[2023-03-28] MEDS: Ondansetron 4 MG/2 ML SDV IVPUSH PRN ×3 (04:37→20:48)
[2023-03-28] MEDS ORDERED: Iopamidol 612 MG/ML 100 ML Bottle IV STA (05:27)
[2023-03-28] MEDS ORDERED: Sodium Chloride 0.9% 100 ML IV STA (05:27)
[2023-03-28] MEDS ORDERED: Iopamidol 612 MG/ML 30 ML SDV PO STA (05:28)
[2023-03-28] MEDS ORDERED: Sodium Chloride 0.9% 10 ML Syringe FLUSH STA (05:28)
[2023-03-28 05:29] LABS: BASOPHILS ABSOLUTE AUTO 0.07 K/uL (0.00-0.10); BASOPHILS PERCENT AUTO 0.5 % (0.1-1.3); EOSINOPHILS ABSOLUTE AUTO 0.43 K/uL (0.00-0.40); EOSINOPHILS PERCENT AUTO 3.3 % (0.0-5.4); HEMATOCRIT 36.5 % (34.3-46.0); HEMOGLOBIN 11.9 g/dL (11.2-15.5); IMMATURE GRAN ABSOLUTE AUTO 0.04 K/uL (0.00-0.23); IMMATURE GRAN PERCENT AUTO 0.3 % (0.0-0.7); LYMPHOCYTES PERCENT AUTO 30.7 % (11.4-47.7); MEAN CORPUSCULAR HEMOGLOBIN 29.9 pg (31.6-35.5); MEAN CORPUSCULAR HGB CONC 32.6 g/dL (31.6-35.5); MEAN CORPUSCULAR VOLUME 91.7 fL (81.4-99.0); MONOCYTES ABSOLUTE AUTO 1.16 K/uL (0.20-0.90); MONOCYTES PERCENT AUTO 8.9 % (3.3-12.6); NEUTROPHILS ABSOLUTE AUTO 7.31 K/uL (1.0-7.6); NEUTROPHILS PERCENT AUTO 56.3 % (40.0-78.1); PLATELET COUNT,PLT 570 K/uL (130-375); RED BLOOD CELL COUNT 3.98 M/uL (3.77-5.24)
[2023-03-28 05:45] LABS: CALCIUM 8.4 mg/dL (8.5-10.1); CREATININE 0.8 mg/dL (0.6-1.0); EST CRCL DRUG DOSING (CG) 67.79 mL/min; POTASSIUM,K 3.2 mmol/L (3.6-5.2)
[2023-03-28 05:47] LABS: ANION GAP 15.2 mmol/L (5.0-14.0)
[2023-03-28] MEDS ORDERED: MVI, Adult with Vitamin K 10 ML, Thiamine 100 MG, Magnesium Sulfate 2 GM, Folic Acid 1 ... IV ONE ×10 (09:00→09:01)
[2023-03-28] MEDS: SCOPOLAMINE PATCH CHECK TOP SCH (09:10)
[2023-03-28] MEDS: Promethazine 12.5 MG in Sodium Chloride 0.9% 50 ML IV PRN ×2 (09:11→17:59)
[2023-03-28] MEDS: Potassium Chloride 20 MEQ, Lidocaine 1% 2 ML in Sodium Chloride 0.9% 100 ML IV SCH ×3 (09:14→14:11)
[2023-03-28] MEDS ORDERED: FLU (Fluarix Quad) QS2023-24(6MOS UP)/PF 60 MCG/0.5 ML Syringe IM ONE (10:00)
[2023-03-28] MEDS: Cyclobenzaprine 10 MG Tab PO PRN ×2 (12:46→20:48)
[2023-03-29] MEDS: Acetaminophen/Codeine 300-30 MG Tab PO PRN ×5 (05:30→21:38)
[2023-03-29] MEDS: Promethazine 12.5 MG in Sodium Chloride 0.9% 50 ML IV PRN ×3 (05:30→21:38)
[2023-03-29 07:09] LABS: A/G RATIO 0.8 (1.2-2.2); ALANINE AMINOTRANSFERASE,ALT 55 U/L (12-78); ALBUMIN 2.7 g/dL (3.4-5.0); ALKALINE PHOSPHATASE 132 U/L (46-116); ASPARTATE AMNIOTRANSFERASE,AST 26 U/L (15-37); BILIRUBIN TOTAL 0.5 mg/dL (0.2-1.0); BLOOD UREA NITROGEN,BUN 18 mg/dL (7-18); CALCIUM 7.9 mg/dL (8.5-10.1); CARBON DIOXIDE,CO2 23 mmol/L (21-32); CHLORIDE,CL 102 mmol/L (100-108); CREATININE 0.4 mg/dL (0.6-1.0); EST CRCL DRUG DOSING (CG) 135.58 mL/min; ESTIMATED GFR 119 mL/min (>60); GLUCOSE RANDOM 73 mg/dL (74-106); MAGNESIUM 1.5 mg/dL (1.8-2.4); PHOSPHORUS 3.2 mg/dL (2.5-4.9); POTASSIUM,K 4.3 mmol/L (3.6-5.2); PROTEIN TOTAL,TP 6.3 g/dL (6.4-8.2); SODIUM,NA 136 mmol/L (140-148)
[2023-03-29 07:10] LABS: ANION GAP 15.3 mmol/L (5.0-14.0)
[2023-03-29 07:47] LABS: HEMATOCRIT 32.2 % (34.3-46.0); HEMOGLOBIN 10.7 g/dL (11.2-15.5); MEAN CORPUSCULAR HEMOGLOBIN 30.7 pg (31.6-35.5); MEAN CORPUSCULAR HGB CONC 33.2 g/dL (31.6-35.5); MEAN CORPUSCULAR VOLUME 92.5 fL (81.4-99.0); RED BLOOD CELL COUNT 3.48 M/uL (3.77-5.24)
[2023-03-29] MEDS: Cyclobenzaprine 10 MG Tab PO PRN ×2 (07:56→16:18)
[2023-03-29] MEDS: Sodium Chloride 0.9% 1,000 ML IV SCH ×2 (07:56→16:23)
[2023-03-29] MEDS: Ondansetron 4 MG/2 ML SDV IVPUSH PRN ×2 (07:57→16:18)
[2023-03-29] MEDS: SCOPOLAMINE PATCH CHECK TOP SCH (09:26)
[2023-03-29] MEDS: MVI, Adult with Vitamin K 10 ML, Thiamine 200 MG, Zinc/Copper/Manganese/Selenium 1 ML i... IV SCH ×4 (09:27)
[2023-03-29] MEDS: Citalopram 20 MG Tab PO SCH (10:56)
[2023-03-29] MEDS: Magnesium Sulfate/Water 2 GM in Premix Bag 1 BAG IV SCH ×3 (11:54→23:29)
[2023-03-29] MEDS: Sucralfate Suspension 1 GM/10 ML Cup PO SCH ×3 (11:54→23:29)
[2023-03-29] MEDS: Hyoscyamine 0.125 MG Tab.SL SL PRN (11:54)
[2023-03-29] MEDS: Pantoprazole 40 MG Tab.CR PO SCH (16:18)
[2023-03-30] MEDS: Ondansetron 4 MG/2 ML SDV IVPUSH PRN ×3 (00:22→21:59)
[2023-03-30] MEDS: Cyclobenzaprine 10 MG Tab PO PRN ×3 (00:22→21:58)
[2023-03-30] MEDS: Sodium Chloride 0.9% 1,000 ML IV SCH ×3 (01:22→23:53)
[2023-03-30] MEDS: Acetaminophen/Codeine 300-30 MG Tab PO PRN ×5 (01:36→18:38)
[2023-03-30 04:29] LABS: HEMATOCRIT 28.5 % (34.3-46.0); HEMOGLOBIN 9.4 g/dL (11.2-15.5); MEAN CORPUSCULAR HEMOGLOBIN 30.4 pg (31.6-35.5); MEAN CORPUSCULAR VOLUME 92.2 fL (81.4-99.0); RED BLOOD CELL COUNT 3.09 M/uL (3.77-5.24); WHITE BLOOD CELL COUNT,WBC 8.9 K/uL (3.2-11.0)
[2023-03-30 04:54] LABS: A/G RATIO 0.7 (1.2-2.2); ALANINE AMINOTRANSFERASE,ALT 31 U/L (12-78); ALBUMIN 2.3 g/dL (3.4-5.0); ALKALINE PHOSPHATASE 103 U/L (46-116); ASPARTATE AMNIOTRANSFERASE,AST 12 U/L (15-37); BILIRUBIN TOTAL 0.3 mg/dL (0.2-1.0); BLOOD UREA NITROGEN,BUN 7 mg/dL (7-18); CALCIUM 7.6 mg/dL (8.5-10.1); CARBON DIOXIDE,CO2 29 mmol/L (21-32); CHLORIDE,CL 103 mmol/L (100-108); CREATININE 0.4 mg/dL (0.6-1.0); EST CRCL DRUG DOSING (CG) 135.58 mL/min; ESTIMATED GFR 119 mL/min (>60); GLUCOSE RANDOM 88 mg/dL (74-106); PHOSPHORUS 2.7 mg/dL (2.5-4.9); POTASSIUM,K 3.7 mmol/L (3.6-5.2); PROTEIN TOTAL,TP 5.6 g/dL (6.4-8.2); SODIUM,NA 138 mmol/L (140-148)
[2023-03-30 05:09] LABS: ANION GAP 9.7 mmol/L (5.0-14.0)
[2023-03-30] MEDS: Magnesium Sulfate/Water 2 GM in Premix Bag 1 BAG IV SCH ×4 (05:42→23:55)
[2023-03-30] MEDS: Sucralfate Suspension 1 GM/10 ML Cup PO SCH ×3 (05:42→17:22)
[2023-03-30] MEDS: Pantoprazole 40 MG Tab.CR PO SCH ×2 (08:27→15:39)
[2023-03-30] MEDS: Citalopram 20 MG Tab PO SCH (08:27)
[2023-03-30] MEDS: SCOPOLAMINE PATCH CHECK TOP SCH (08:34)
[2023-03-30] MEDS: Promethazine 12.5 MG in Sodium Chloride 0.9% 50 ML IV PRN (08:35)
[2023-03-30] MEDS: Scopolamine 1.5 MG Transdermal Patch TOP PRN (09:00)
[2023-03-30] MEDS: MVI, Adult with Vitamin K 10 ML, Thiamine 200 MG, Zinc/Copper/Manganese/Selenium 1 ML i... IV SCH ×4 (09:21)
[2023-03-30] MEDS ORDERED: Iopamidol 510 MG/ML 50 ML SDV PO ONE (13:46)
[2023-03-30] MEDS ORDERED: Iopamidol 612 MG/ML 50 ML SDV IV ONE (15:17)
[2023-03-30] MEDS ORDERED: Iopamidol 612 MG/ML 50 ML SDV PO ONE (15:19)
[2023-03-30] MEDS ORDERED: Gabapentin 100 MG Cap PO SCH (16:04)
[2023-03-30] MEDS: Haloperidol 1 MG Tab PO PRN ×2 (16:17→20:25)
[2023-03-30] MEDS: busPIRone 10 MG Tab PO PRN (16:17)
[2023-03-30] MEDS: Gabapentin 250 MG/5 ML Solution ML 470 ML Bottle PO SCH ×3 (16:19→20:27)
[2023-03-30] MEDS: Hyoscyamine 0.125 MG Tab.SL SL PRN (17:31)
[2023-03-30] MEDS: Zolpidem 5 MG Tab PO PRN (21:58)
[2023-03-31] MEDS: Haloperidol 1 MG Tab PO PRN ×5 (00:12→23:10)
[2023-03-31] MEDS: Acetaminophen/Codeine 300-30 MG Tab PO PRN ×6 (04:05→20:16)
[2023-03-31 04:15] LABS: HEMATOCRIT 30.2 % (34.3-46.0); MEAN CORPUSCULAR HEMOGLOBIN 30.3 pg (31.6-35.5); MEAN CORPUSCULAR HGB CONC 33.1 g/dL (31.6-35.5); MEAN CORPUSCULAR VOLUME 91.5 fL (81.4-99.0); RED BLOOD CELL COUNT 3.3 M/uL (3.77-5.24); WHITE BLOOD CELL COUNT,WBC 9.6 K/uL (3.2-11.0)
[2023-03-31 04:39] LABS: A/G RATIO 0.7 (1.2-2.2); ALANINE AMINOTRANSFERASE,ALT 26 U/L (12-78); ALBUMIN 2.5 g/dL (3.4-5.0); ALKALINE PHOSPHATASE 104 U/L (46-116); ASPARTATE AMNIOTRANSFERASE,AST 13 U/L (15-37); BILIRUBIN TOTAL 0.2 mg/dL (0.2-1.0); BLOOD UREA NITROGEN,BUN 2 mg/dL (7-18); CALCIUM 7.7 mg/dL (8.5-10.1); CARBON DIOXIDE,CO2 29 mmol/L (21-32); CHLORIDE,CL 102 mmol/L (100-108); CREATININE 0.5 mg/dL (0.6-1.0); EST CRCL DRUG DOSING (CG) 108.46 mL/min; ESTIMATED GFR 113 mL/min (>60); GLUCOSE RANDOM 101 mg/dL (74-106); PHOSPHORUS 3.4 mg/dL (2.5-4.9); POTASSIUM,K 3.5 mmol/L (3.6-5.2); PROTEIN TOTAL,TP 5.9 g/dL (6.4-8.2); SODIUM,NA 140 mmol/L (140-148)
[2023-03-31 05:03] LABS: ANION GAP 12.5 mmol/L (5.0-14.0)
[2023-03-31] MEDS: Magnesium Sulfate/Water 2 GM in Premix Bag 1 BAG IV SCH ×4 (05:35→23:11)
[2023-03-31] MEDS: Cyclobenzaprine 10 MG Tab PO PRN ×3 (05:44→23:10)
[2023-03-31] MEDS: Sucralfate Suspension 1 GM/10 ML Cup PO SCH ×5 (05:44→23:10)
[2023-03-31] MEDS: Hyoscyamine 0.125 MG Tab.SL SL PRN ×4 (05:45→23:10)
[2023-03-31] MEDS: Citalopram 20 MG Tab PO SCH (08:09)
[2023-03-31] MEDS: busPIRone 10 MG Tab PO PRN ×3 (08:09→20:11)
[2023-03-31] MEDS: Pantoprazole 40 MG Tab.CR PO SCH ×2 (08:09→16:27)
[2023-03-31] MEDS: Gabapentin 250 MG/5 ML Solution ML 470 ML Bottle PO SCH ×3 (08:15→20:11)
[2023-03-31] MEDS: SCOPOLAMINE PATCH CHECK TOP SCH (09:00)
[2023-03-31] MEDS ORDERED: Potassium Chloride 20 MEQ in Premix Bag 1 BAG IV ONE (09:00)
[2023-03-31] MEDS ORDERED: Bupivacaine 0.5% 50 ML MDV ONE (10:33)
[2023-03-31] MEDS ORDERED: Lidocaine 1% with EPINEPHrine 1:100,000 50 ML MDV ONE (10:33)
[2023-03-31 12:13] LABS: IRON,FE 24 ug/dL (50-170); PERCENT FE SATURATION 16 % (20-55); PHOSPHORUS 3.5 mg/dL (2.5-4.9); TOTAL IRON BINDING CAPACITY 152 ug/dl (250-450)
[2023-03-31] MEDS: MVI, Adult with Vitamin K 10 ML, Thiamine 200 MG, Zinc/Copper/Manganese/Selenium 1 ML i... IV SCH ×4 (13:45)
[2023-03-31] MEDS: Ondansetron 4 MG/2 ML SDV IVPUSH PRN (15:09)
[2023-03-31] MEDS: Zolpidem 5 MG Tab PO PRN (23:09)
[2023-04-01] MEDS: Acetaminophen/Codeine 300-30 MG Tab PO PRN ×6 (00:20→21:03)
[2023-04-01] MEDS: Ondansetron 4 MG/2 ML SDV IVPUSH PRN ×3 (02:40→19:24)
[2023-04-01] MEDS: Sodium Chloride 0.9% 1,000 ML IV SCH ×2 (02:47→23:23)
[2023-04-01 04:38] LABS: HEMATOCRIT 29.4 % (34.3-46.0); HEMOGLOBIN 9.8 g/dL (11.2-15.5); MEAN CORPUSCULAR HEMOGLOBIN 30.6 pg (31.6-35.5); MEAN CORPUSCULAR HGB CONC 33.3 g/dL (31.6-35.5); MEAN CORPUSCULAR VOLUME 91.9 fL (81.4-99.0); RED BLOOD CELL COUNT 3.2 M/uL (3.77-5.24); WHITE BLOOD CELL COUNT,WBC 12.6 K/uL (3.2-11.0)
[2023-04-01] MEDS: Haloperidol 1 MG Tab PO PRN ×4 (04:47→17:08)
[2023-04-01] MEDS: Sucralfate Suspension 1 GM/10 ML Cup PO SCH ×4 (05:00→23:17)
[2023-04-01] MEDS: Magnesium Sulfate/Water 2 GM in Premix Bag 1 BAG IV SCH (05:01)
[2023-04-01 05:09] LABS: A/G RATIO 0.7 (1.2-2.2); ALANINE AMINOTRANSFERASE,ALT 21 U/L (12-78); ALBUMIN 2.3 g/dL (3.4-5.0); ALKALINE PHOSPHATASE 100 U/L (46-116); ASPARTATE AMNIOTRANSFERASE,AST 13 U/L (15-37); BILIRUBIN TOTAL 0.2 mg/dL (0.2-1.0); BLOOD UREA NITROGEN,BUN 3 mg/dL (7-18); CALCIUM 7.5 mg/dL (8.5-10.1); CARBON DIOXIDE,CO2 32 mmol/L (21-32); CHLORIDE,CL 101 mmol/L (100-108); CREATININE 0.5 mg/dL (0.6-1.0); EST CRCL DRUG DOSING (CG) 111.02 mL/min; ESTIMATED GFR 113 mL/min (>60); GLUCOSE RANDOM 108 mg/dL (74-106); PHOSPHORUS 3.5 mg/dL (2.5-4.9); POTASSIUM,K 3.4 mmol/L (3.6-5.2); PROTEIN TOTAL,TP 5.6 g/dL (6.4-8.2); SODIUM,NA 140 mmol/L (140-148)
[2023-04-01 05:18] LABS: ANION GAP 10.4 mmol/L (5.0-14.0)
[2023-04-01] MEDS: busPIRone 10 MG Tab PO PRN ×3 (07:11→21:03)
[2023-04-01] MEDS: Cyclobenzaprine 10 MG Tab PO PRN ×3 (07:11→23:17)
[2023-04-01] MEDS: Hyoscyamine 0.125 MG Tab.SL SL PRN ×2 (07:12→17:33)
[2023-04-01] MEDS: Pantoprazole 40 MG Tab.CR PO SCH ×2 (08:46→17:45)
[2023-04-01] MEDS: Citalopram 20 MG Tab PO SCH (08:47)
[2023-04-01] MEDS: Gabapentin 250 MG/5 ML Solution ML 470 ML Bottle PO SCH ×3 (08:50→21:03)
[2023-04-01] MEDS: SCOPOLAMINE PATCH CHECK TOP SCH (09:54)
[2023-04-01] MEDS: Potassium Chloride 20 MEQ, Lidocaine 1% 2 ML in Sodium Chloride 0.9% 100 ML IV SCH ×3 (09:59→15:12)
[2023-04-01] MEDS: MVI, Adult with Vitamin K 10 ML, Thiamine 200 MG, Zinc/Copper/Manganese/Selenium 1 ML i... IV SCH ×4 (10:00)
[2023-04-01] MEDS: Zolpidem 5 MG Tab PO PRN (21:04)
[2023-04-01] MEDS: Aluminum Hydroxide/Magnesium Hydroxide/Simethicone Susp 30 ML Cup PO PRN (22:27)
[2023-04-02] MEDS: Acetaminophen/Codeine 300-30 MG Tab PO PRN ×6 (01:25→22:43)
[2023-04-02] MEDS: Haloperidol 1 MG Tab PO PRN ×6 (01:25→22:43)
[2023-04-02] MEDS: Sucralfate Suspension 1 GM/10 ML Cup PO SCH ×3 (05:45→17:02)
[2023-04-02] MEDS: Hyoscyamine 0.125 MG Tab.SL SL PRN ×2 (07:44→17:01)
[2023-04-02] MEDS: busPIRone 10 MG Tab PO PRN ×2 (07:44→14:18)
[2023-04-02] MEDS: Bisacodyl 5 MG Tab PO SCH ×2 (09:16→20:30)
[2023-04-02] MEDS: Docusate Sodium 100 MG Cap PO SCH ×2 (09:16→20:30)
[2023-04-02] MEDS: Gabapentin 250 MG/5 ML Solution ML 470 ML Bottle PO SCH ×3 (09:16→20:29)
[2023-04-02] MEDS: Pantoprazole 40 MG Tab.CR PO SCH ×2 (09:17→17:02)
[2023-04-02] MEDS: Citalopram 20 MG Tab PO SCH (09:17)
[2023-04-02] MEDS: SCOPOLAMINE PATCH CHECK TOP SCH (09:18)
[2023-04-02] MEDS: Scopolamine 1.5 MG Transdermal Patch TOP PRN (09:20)
[2023-04-02] MEDS: MVI, Adult with Vitamin K 10 ML, Thiamine 200 MG, Zinc/Copper/Manganese/Selenium 1 ML i... IV SCH ×4 (09:56)
[2023-04-02] MEDS: Cyclobenzaprine 10 MG Tab PO PRN (17:04)
[2023-04-02] MEDS: Zolpidem 5 MG Tab PO PRN (22:43)
[2023-04-03] MEDS: busPIRone 10 MG Tab PO PRN ×3 (01:03→20:39)
[2023-04-03] MEDS: Hyoscyamine 0.125 MG Tab.SL SL PRN ×4 (01:03→22:58)
[2023-04-03] MEDS: Sucralfate Suspension 1 GM/10 ML Cup PO SCH ×4 (01:03→17:18)
[2023-04-03] MEDS: Cyclobenzaprine 10 MG Tab PO PRN ×2 (01:03→17:54)
[2023-04-03] MEDS: Ondansetron 4 MG Tab.DIS PO PRN ×2 (03:55→12:10)
[2023-04-03] MEDS: Acetaminophen/Codeine 300-30 MG Tab PO PRN ×5 (03:55→20:37)
[2023-04-03] MEDS: Haloperidol 1 MG Tab PO PRN ×4 (03:55→23:00)
[2023-04-03 05:02] LABS: HEMATOCRIT 28.1 % (34.3-46.0); HEMOGLOBIN 9.2 g/dL (11.2-15.5); MEAN CORPUSCULAR HGB CONC 32.7 g/dL (31.6-35.5); MEAN CORPUSCULAR VOLUME 91.5 fL (81.4-99.0); RED BLOOD CELL COUNT 3.07 M/uL (3.77-5.24); WHITE BLOOD CELL COUNT,WBC 11.5 K/uL (3.2-11.0)
[2023-04-03 05:21] LABS: A/G RATIO 0.6 (1.2-2.2); ALANINE AMINOTRANSFERASE,ALT 15 U/L (12-78); ALBUMIN 2.1 g/dL (3.4-5.0); ALKALINE PHOSPHATASE 103 U/L (46-116); ASPARTATE AMNIOTRANSFERASE,AST 13 U/L (15-37); BILIRUBIN TOTAL 0.2 mg/dL (0.2-1.0); BLOOD UREA NITROGEN,BUN 5 mg/dL (7-18); CARBON DIOXIDE,CO2 30 mmol/L (21-32); CHLORIDE,CL 102 mmol/L (100-108); CREATININE 0.4 mg/dL (0.6-1.0); EST CRCL DRUG DOSING (CG) 143.11 mL/min; ESTIMATED GFR 119 mL/min (>60); GLUCOSE RANDOM 121 mg/dL (74-106); PHOSPHORUS 3.4 mg/dL (2.5-4.9); POTASSIUM,K 3.9 mmol/L (3.6-5.2); PROTEIN TOTAL,TP 5.7 g/dL (6.4-8.2); SODIUM,NA 138 mmol/L (140-148)
[2023-04-03] MEDS: Aluminum Hydroxide/Magnesium Hydroxide/Simethicone Susp 30 ML Cup PO PRN (05:25)
[2023-04-03 05:37] LABS: ANION GAP 9.9 mmol/L (5.0-14.0)
[2023-04-03] MEDS: Pantoprazole 40 MG Tab.CR PO SCH ×2 (08:08→16:32)
[2023-04-03] MEDS: Citalopram 20 MG Tab PO SCH (08:08)
[2023-04-03] MEDS: Docusate Sodium 100 MG Cap PO SCH ×2 (08:08→20:40)
[2023-04-03] MEDS: Bisacodyl 5 MG Tab PO SCH ×2 (08:19→20:40)
[2023-04-03] MEDS: Gabapentin 250 MG/5 ML Solution ML 470 ML Bottle PO SCH ×3 (08:20→20:44)
[2023-04-03] MEDS: SCOPOLAMINE PATCH CHECK TOP SCH (08:22)
[2023-04-03] MEDS: Zolpidem 5 MG Tab PO PRN (23:00)
[2023-04-04] MEDS: Ondansetron 4 MG Tab.DIS PO PRN ×3 (00:59→17:37)
[2023-04-04] MEDS: Sucralfate Suspension 1 GM/10 ML Cup PO SCH ×4 (01:00→17:00)
[2023-04-04] MEDS: Acetaminophen/Codeine 300-30 MG Tab PO PRN ×6 (01:03→21:53)
[2023-04-04] MEDS: Cyclobenzaprine 10 MG Tab PO PRN ×3 (02:56→19:30)
[2023-04-04] MEDS: Haloperidol 1 MG Tab PO PRN ×4 (02:56→21:14)
[2023-04-04 05:00] LABS: BASOPHILS ABSOLUTE AUTO 0.05 K/uL (0.00-0.10); BASOPHILS PERCENT AUTO 0.7 % (0.1-1.3); EOSINOPHILS ABSOLUTE AUTO 0.38 K/uL (0.00-0.40); EOSINOPHILS PERCENT AUTO 5.1 % (0.0-5.4); HEMATOCRIT 29.5 % (34.3-46.0); HEMOGLOBIN 9.6 g/dL (11.2-15.5); IMMATURE GRAN PERCENT AUTO 0.1 % (0.0-0.7); LYMPHOCYTES ABSOLUTE AUTO 2.85 K/uL (0.8-3.3); LYMPHOCYTES PERCENT AUTO 38.4 % (11.4-47.7); MEAN CORPUSCULAR HEMOGLOBIN 30.4 pg (31.6-35.5); MEAN CORPUSCULAR HGB CONC 32.5 g/dL (31.6-35.5); MEAN CORPUSCULAR VOLUME 93.4 fL (81.4-99.0); MONOCYTES ABSOLUTE AUTO 0.76 K/uL (0.20-0.90); MONOCYTES PERCENT AUTO 10.2 % (3.3-12.6); NEUTROPHILS ABSOLUTE AUTO 3.37 K/uL (1.0-7.6); NEUTROPHILS PERCENT AUTO 45.5 % (40.0-78.1); PLATELET COUNT,PLT 469 K/uL (130-375); RED BLOOD CELL COUNT 3.16 M/uL (3.77-5.24); WHITE BLOOD CELL COUNT,WBC 7.4 K/uL (3.2-11.0)
[2023-04-04] MEDS: Hyoscyamine 0.125 MG Tab.SL SL PRN ×4 (05:18→21:57)
[2023-04-04 05:46] LABS: IMMATURE GRAN ABSOLUTE AUTO 0.01 K/uL (0.00-0.23)
[2023-04-04] MEDS: Pantoprazole 40 MG Tab.CR PO SCH ×2 (08:13→15:49)
[2023-04-04] MEDS: Citalopram 20 MG Tab PO SCH (08:13)
[2023-04-04] MEDS: Docusate Sodium 100 MG Cap PO SCH ×2 (08:14→21:12)
[2023-04-04] MEDS: Gabapentin 250 MG/5 ML Solution ML 470 ML Bottle PO SCH ×3 (08:17→21:14)
[2023-04-04] MEDS: SCOPOLAMINE PATCH CHECK TOP SCH (08:18)
[2023-04-04] MEDS ORDERED: Prochlorperazine 10 MG Tab PO ONE (16:00)
[2023-04-04] MEDS: busPIRone 10 MG Tab PO PRN (19:30)
[2023-04-04] MEDS: Zolpidem 5 MG Tab PO PRN (21:53)
[2023-04-05] MEDS: Sucralfate Suspension 1 GM/10 ML Cup PO SCH ×5 (00:45→23:35)
[2023-04-05] MEDS: Ondansetron 4 MG Tab.DIS PO PRN ×2 (01:50→18:32)
[2023-04-05] MEDS: Acetaminophen/Codeine 300-30 MG Tab PO PRN ×6 (01:53→22:27)
[2023-04-05] MEDS: Cyclobenzaprine 10 MG Tab PO PRN ×3 (03:35→20:00)
[2023-04-05] MEDS: Haloperidol 1 MG Tab PO PRN ×5 (06:07→22:28)
[2023-04-05] MEDS: Bisacodyl 5 MG Tab PO PRN ×2 (06:15→18:32)
[2023-04-05] MEDS: Hyoscyamine 0.125 MG Tab.SL SL PRN ×2 (08:24→13:35)
[2023-04-05] MEDS: Citalopram 20 MG Tab PO SCH (09:16)
[2023-04-05] MEDS: Pantoprazole 40 MG Tab.CR PO SCH ×2 (09:16→17:38)
[2023-04-05] MEDS: Docusate Sodium 100 MG Cap PO SCH ×2 (09:16→20:03)
[2023-04-05] MEDS: busPIRone 10 MG Tab PO PRN (09:23)
[2023-04-05] MEDS: Aluminum Hydroxide/Magnesium Hydroxide/Simethicone Susp 30 ML Cup PO PRN ×2 (09:30→20:30)
[2023-04-05] MEDS: Gabapentin 250 MG/5 ML Solution ML 470 ML Bottle PO SCH ×2 (09:59→13:37)
[2023-04-05] MEDS ORDERED: HYDROmorphone 0.5 MG/0.5 ML Syringe IVPUSH ONE (15:14)
[2023-04-05] MEDS: SCOPOLAMINE PATCH CHECK TOP SCH (16:16)
[2023-04-05] MEDS: Scopolamine 1.5 MG Transdermal Patch TOP PRN (18:28)
[2023-04-05] MEDS ORDERED: Nystatin Topical Powder 15 GM Bottle TOP PRN (19:20)
[2023-04-05] MEDS: Gabapentin 100 MG Cap PO SCH (20:03)
[2023-04-05] MEDS ORDERED: Gabapentin 250 MG/5 ML Solution ML 470 ML Bottle PO SCH (21:00)
[2023-04-05] MEDS: Zolpidem 5 MG Tab PO PRN (22:31)
[2023-04-06] MEDS: Haloperidol 1 MG Tab PO PRN ×3 (03:27→12:19)
[2023-04-06] MEDS: Acetaminophen/Codeine 300-30 MG Tab PO PRN ×3 (03:27→12:20)
[2023-04-06 04:36] LABS: HEMATOCRIT 31.2 % (34.3-46.0); HEMOGLOBIN 10.2 g/dL (11.2-15.5); MEAN CORPUSCULAR HEMOGLOBIN 30.3 pg (31.6-35.5); MEAN CORPUSCULAR HGB CONC 32.7 g/dL (31.6-35.5); MEAN CORPUSCULAR VOLUME 92.6 fL (81.4-99.0); RED BLOOD CELL COUNT 3.37 M/uL (3.77-5.24); WHITE BLOOD CELL COUNT,WBC 6.7 K/uL (3.2-11.0)
[2023-04-06 04:56] LABS: A/G RATIO 0.6 (1.2-2.2); ALANINE AMINOTRANSFERASE,ALT 10 U/L (12-78); ALBUMIN 2.3 g/dL (3.4-5.0); ALKALINE PHOSPHATASE 103 U/L (46-116); ANION GAP 10.1 mmol/L (5.0-14.0); ASPARTATE AMNIOTRANSFERASE,AST 9 U/L (15-37); BILIRUBIN TOTAL 0.1 mg/dL (0.2-1.0); BLOOD UREA NITROGEN,BUN 14 mg/dL (7-18); CALCIUM 8.6 mg/dL (8.5-10.1); CARBON DIOXIDE,CO2 31 mmol/L (21-32); CHLORIDE,CL 101 mmol/L (100-108); CREATININE 0.5 mg/dL (0.6-1.0); ESTIMATED GFR 113 mL/min (>60); GLUCOSE RANDOM 108 mg/dL (74-106); MAGNESIUM 1.5 mg/dL (1.8-2.4); PHOSPHORUS 3.6 mg/dL (2.5-4.9); POTASSIUM,K 4.1 mmol/L (3.6-5.2); PROTEIN TOTAL,TP 6.3 g/dL (6.4-8.2); SODIUM,NA 138 mmol/L (140-148)
[2023-04-06] MEDS: Sucralfate Suspension 1 GM/10 ML Cup PO SCH ×2 (05:46→11:27)
[2023-04-06 05:47] VITALS: BP 108/68; PULSE 89
[2023-04-06] MEDS: Cyclobenzaprine 10 MG Tab PO PRN (05:52)
[2023-04-06] MEDS: Hyoscyamine 0.125 MG Tab.SL SL PRN ×2 (08:21→12:19)
[2023-04-06] MEDS: Pantoprazole 40 MG Tab.CR PO SCH (08:21)
[2023-04-06] MEDS: Gabapentin 100 MG Cap PO SCH (08:22)
[2023-04-06] MEDS: Citalopram 20 MG Tab PO SCH (08:22)
[2023-04-06] MEDS: Docusate Sodium 100 MG Cap PO SCH (08:22)
[2023-04-06] MEDS: Bisacodyl 5 MG Tab PO PRN (08:26)
[2023-04-06] MEDS: SCOPOLAMINE PATCH CHECK TOP SCH (08:27)
[2023-04-06] MEDS ORDERED: Bacitracin Oint 28.35 GM Tube TOP SCH (09:00)
[2023-04-06] MEDS: Ondansetron 4 MG Tab.DIS PO PRN (10:11)
[2023-04-06] MEDS ORDERED: Polyethylene Glycol 3350 Powder 17 GM Packet PO ONE (10:34)
== END 2023-04-06 12:45 | disposition home health service (06) | DRG 950 ==
LOC: JP.MS 14:20 → OBSVTOIN 03-30 14:20
PROVIDERS: ADMIT Surgery; ATTEND Surgery
PROC: 02PY33Z Removal of Infusion Device from Great Vessel, Percutaneous Approach (ICD-10-PCS; principal; 2023-03-31 10:50)
DX: R10.9 Unspecified abdominal pain (principal); E87.6 Hypokalemia; E86.0 Dehydration; R13.19 Other dysphagia; I10 Essential (primary) hypertension; K21.9 Gastro-esophageal reflux disease without esophagitis; F17.210 Nicotine dependence, cigarettes, uncomplicated; F41.9 Anxiety disorder, unspecified; F32.A Depression, unspecified; D64.9 Anemia, unspecified; Z87.442 Personal history of urinary calculi; Z98.890 Other specified postprocedural states; Z90.89 Acquired absence of other organs; Z90.710 Acquired absence of both cervix and uterus; Z90.721 Acquired absence of ovaries, unilateral; Z79.899 Other long term (current) drug therapy
CPT/HCPCS: 0241U; 36415; 49465; 74177; 80048; 80053; 83550; 83735; 84100; 85025; 85027; 87070; 90686; 99231; 99232; A9270-GY; G0008; J1170; J2405; J2550; J3411; J3475; J3480; J3490; J7030; J7120; Q0162; Q0164; Q9967

== ENCOUNTER 2023-04-08 21:20 | Emergency (ER) | payer BC ==
[2023-04-08 21:30] VITALS: PULSE 96
[2023-04-08] MEDS ORDERED: droPERidol 5 MG/2 ML SDV IVPUSH ONE (21:49)
[2023-04-08] MEDS ORDERED: fentaNYL 50 MCG/ML SDV IVPUSH ONE (21:49)
[2023-04-08] MEDS ORDERED: Sodium Chloride 0.9% 1,000 ML IV SCH (22:00)
[2023-04-08 22:10] LABS: BASOPHILS PERCENT AUTO 0.2 % (0.1-1.3); HEMATOCRIT 30.7 % (34.3-46.0); HEMOGLOBIN 10.3 g/dL (11.2-15.5); IMMATURE GRAN ABSOLUTE AUTO 0.06 K/uL (0.00-0.23); IMMATURE GRAN PERCENT AUTO 0.5 % (0.0-0.7); LYMPHOCYTES PERCENT AUTO 18.6 % (11.4-47.7); MEAN CORPUSCULAR HEMOGLOBIN 30.2 pg (31.6-35.5); MEAN CORPUSCULAR HGB CONC 33.6 g/dL (31.6-35.5); MONOCYTES ABSOLUTE AUTO 0.46 K/uL (0.20-0.90); MONOCYTES PERCENT AUTO 4.1 % (3.3-12.6); NEUTROPHILS ABSOLUTE AUTO 8.66 K/uL (1.0-7.6); NEUTROPHILS PERCENT AUTO 76.6 % (40.0-78.1); PLATELET COUNT,PLT 605 K/uL (130-375); RED BLOOD CELL COUNT 3.41 M/uL (3.77-5.24); WHITE BLOOD CELL COUNT,WBC 11.3 K/uL (3.2-11.0)
[2023-04-08 22:12] LABS: BASOPHILS ABSOLUTE AUTO 0.02 K/uL (0.00-0.10)
[2023-04-08 22:29] LABS: A/G RATIO 0.6 (1.2-2.2); ALANINE AMINOTRANSFERASE,ALT 8 U/L (12-78); ALBUMIN 2.7 g/dL (3.4-5.0); ALKALINE PHOSPHATASE 117 U/L (46-116); ANION GAP 16.4 mmol/L (5.0-14.0); ASPARTATE AMNIOTRANSFERASE,AST 10 U/L (15-37); BILIRUBIN TOTAL 0.4 mg/dL (0.2-1.0); BLOOD UREA NITROGEN,BUN 23 mg/dL (7-18); CALCIUM 8.7 mg/dL (8.5-10.1); CARBON DIOXIDE,CO2 24 mmol/L (21-32); CHLORIDE,CL 99 mmol/L (100-108); CREATININE 0.6 mg/dL (0.6-1.0); ESTIMATED GFR 108 mL/min (>60); GLUCOSE RANDOM 167 mg/dL (74-106); MAGNESIUM 1.5 mg/dL (1.8-2.4); POTASSIUM,K 3.4 mmol/L (3.6-5.2); PROTEIN TOTAL,TP 7.2 g/dL (6.4-8.2); SODIUM,NA 136 mmol/L (140-148)
== END 2023-04-08 23:06 | disposition home or self-care (01) ==
LOC: JP.ED 21:20
DX: R10.9 Unspecified abdominal pain (principal); G89.29 Other chronic pain; I10 Essential (primary) hypertension; K21.9 Gastro-esophageal reflux disease without esophagitis; Z79.899 Other long term (current) drug therapy; Z90.49 Acquired absence of other specified parts of digestive tract; Z90.710 Acquired absence of both cervix and uterus
CPT/HCPCS: 36415; 80053; 83605; 83690; 83735; 85025; 96361; 96374; 96375; 99283-25; 99284; J1790; J3010; J7030

== ENCOUNTER 2023-04-09 08:10 | Emergency (ER) | payer BC ==
[2023-04-09] MEDS ORDERED: Lactated Ringers 1,000 ML IV ONE (08:55)
[2023-04-09] MEDS ORDERED: Sodium Chloride 0.9% 10 ML Syringe FLUSH PRN (08:55)
[2023-04-09] MEDS ORDERED: fentaNYL 100 MCG/2 ML SDV IVPUSH ONE (08:55)
[2023-04-09] MEDS ORDERED: droPERidol 5 MG/2 ML SDV IVPUSH ONE (08:56)
[2023-04-09] MEDS ORDERED: cloNIDine 0.1 MG Tab PO ONE (08:57)
[2023-04-09 10:37] VITALS: BP 99/67; PULSE 104
[2023-04-09] MEDS ORDERED: LORazepam 2 MG/ML SDV IVPUSH ONE (11:51)
== END 2023-04-09 12:15 | disposition home or self-care (01) ==
LOC: JP.ED 08:10
DX: R11.2 Nausea with vomiting, unspecified (principal); R10.9 Unspecified abdominal pain; I10 Essential (primary) hypertension; K21.9 Gastro-esophageal reflux disease without esophagitis; Z90.49 Acquired absence of other specified parts of digestive tract; Z79.899 Other long term (current) drug therapy
CPT/HCPCS: 96361; 96374; 96375; 99283; A9270; J1790; J2060; J3010; J3490; J7120

== ENCOUNTER 2023-04-09 14:46 | Emergency (ER) | payer BC ==
[2023-04-09 15:17] VITALS: BP 123/85; PULSE 95
== END 2023-04-09 15:59 | disposition home or self-care (01) ==
LOC: JP.ED 14:46
DX: K94.23 Gastrostomy malfunction (principal); I10 Essential (primary) hypertension; K21.9 Gastro-esophageal reflux disease without esophagitis; Z79.899 Other long term (current) drug therapy; Z90.49 Acquired absence of other specified parts of digestive tract; Z90.710 Acquired absence of both cervix and uterus
CPT/HCPCS: 99282

== ENCOUNTER 2023-04-12 11:28 | Inpatient (IN) | payer BC, MEDICAID ==
[2023-04-12] MEDS ORDERED: Lidocaine 2% Jelly 10 ML Urojet ONE (12:27)
[2023-04-12] MEDS ORDERED: Lidocaine 2% Jelly 10 ML Urojet MUCMEM ONE (12:29)
[2023-04-12] MEDS ORDERED: Lidocaine 1% with EPINEPHrine 1:100,000 50 ML MDV INJECT ONE (12:35)
[2023-04-12 13:18] LABS: HEMATOCRIT 32.8 % (34.3-46.0); HEMOGLOBIN 11.2 g/dL (11.2-15.5); MEAN CORPUSCULAR HEMOGLOBIN 30.4 pg (31.6-35.5); MEAN CORPUSCULAR HGB CONC 34.1 g/dL (31.6-35.5); MEAN CORPUSCULAR VOLUME 88.9 fL (81.4-99.0); PLATELET COUNT,PLT 703 K/uL (130-375); RED BLOOD CELL COUNT 3.69 M/uL (3.77-5.24); WHITE BLOOD CELL COUNT,WBC 17.2 K/uL (3.2-11.0)
[2023-04-12 13:44] LABS: A/G RATIO 0.7 (1.2-2.2); ALANINE AMINOTRANSFERASE,ALT 8 U/L (12-78); ALKALINE PHOSPHATASE 88 U/L (46-116); ASPARTATE AMNIOTRANSFERASE,AST 11 U/L (15-37); BILIRUBIN TOTAL 0.7 mg/dL (0.2-1.0); BLOOD UREA NITROGEN,BUN 26 mg/dL (7-18); CALCIUM 8.8 mg/dL (8.5-10.1); CARBON DIOXIDE,CO2 29 mmol/L (21-32); CHLORIDE,CL 98 mmol/L (100-108); CREATININE 0.7 mg/dL (0.6-1.0); ESTIMATED GFR 104 mL/min (>60); GLUCOSE RANDOM 123 mg/dL (74-106); PROTEIN TOTAL,TP 7.2 g/dL (6.4-8.2); SODIUM,NA 139 mmol/L (140-148)
[2023-04-12 13:46] LABS: ANION GAP 14.5 mmol/L (5.0-14.0); POTASSIUM,K 2.5 mmol/L (3.6-5.2)
[2023-04-12 13:49] LABS: EOSINOPHILS ABSOLUTE MAN 0.34 K/uL (0.00-0.40); EOSINOPHILS PERCENT MAN 2 % (2-4); LYMPHOCYTES ABSOLUTE MAN 9.63 K/uL (0.8-3.3); LYMPHOCYTES PERCENT MAN 56 % (24-44); MONOCYTES PERCENT MAN 7 % (2-6); NEUTROPHILS ABSOLUTE MAN 6.02 K/uL (1.0-7.6); SEG NEUTROPHILS PERCENT MAN 35 % (36-66)
[2023-04-12] MEDS ORDERED: Magnesium Sulfate/Water 2 GM in Premix Bag 1 BAG IV ONE (14:04)
[2023-04-12] MEDS ORDERED: Sodium Chloride 0.9% 1,000 ML IV ONE (14:05)
[2023-04-12] MEDS ORDERED: Sodium Chloride 0.9% 10 ML Syringe FLUSH PRN ×3 (14:05→17:00)
[2023-04-12] MEDS ORDERED: HYDROmorphone 0.5 MG/0.5 ML Syringe IVPUSH ONE ×2 (14:10→15:59)
[2023-04-12] MEDS ORDERED: Prochlorperazine 10 MG/2 ML SDV IVPUSH ONE (14:12)
[2023-04-12] MEDS ORDERED: Naloxone 0.4 MG/ML SDV IVPUSH PRN (14:12)
[2023-04-12 14:25] LABS: CORONAVIRUS COVID-19 NAA NEGATIVE (NEGATIVE); INFLUENZA A NAA NEGATIVE (NEGATIVE); INFLUENZA B NAA NEGATIVE (NEGATIVE); RESPIRATORY SYNCYTIAL VIR NAA NEGATIVE (NEGATIVE)
[2023-04-12] MEDS: Potassium Chloride 20 MEQ in Premix Bag 1 BAG IV SCH ×2 (14:38→17:30)
[2023-04-12] MEDS ORDERED: Sodium Chloride 0.9% 10 ML Syringe FLUSH ONE (14:44)
[2023-04-12] MEDS ORDERED: Iopamidol 612 MG/ML 100 ML Bottle IV PRN (14:44)
[2023-04-12] MEDS ORDERED: Sodium Chloride 0.9% 50 ML IV SCH (14:45)
[2023-04-12 15:58] LABS: APPEARANCE,URINE SLIGHTLY CLOUDY (CLEAR); BILIRUBIN,URINE NEGATIVE (NEGATIVE); COLOR,URINE YELLOW (YELLOW); GLUCOSE,URINE NEGATIVE (NEGATIVE); KETONES,URINE NEGATIVE (NEGATIVE); LEUKOCYTE ESTERASE,URINE TRACE (NEGATIVE); NITRITE,URINE NEGATIVE (NEGATIVE); OCCULT BLOOD,URINE NEGATIVE (NEGATIVE); PROTEIN,URINE 30 mg/dL (NEGATIVE)
[2023-04-12] MEDS ORDERED: Metoclopramide 10 MG/2 ML SDV IVPUSH ONE (15:59)
[2023-04-12 16:01] LABS: RBC,URINE 0-5 (0-5)
[2023-04-12 16:02] LABS: AMORPHOUS SEDIMENT,URINE FEW; BACTERIA,URINE FEW; EPITHELIAL CELLS,URINE FEW; MUCUS,URINE MANY
[2023-04-12] MEDS ORDERED: Acetaminophen 325 MG Tab PO PRN (17:00)
[2023-04-12] MEDS: Sodium Chloride 0.9% 1,000 ML IV SCH (17:35)
[2023-04-12] MEDS: Scopalamine 1mg/3day Transdermal Patch TRDERM SCH (17:44)
[2023-04-12] MEDS: Acetaminophen/Codeine 300-30 MG Tab PO PRN ×2 (17:56→22:06)
[2023-04-12] MEDS: SCOPOLAMINE PATCH CHECK TOP SCH (18:12)
[2023-04-12] MEDS: Potassium Chloride 10 MEQ in Premix Bag 1 BAG IV SCH ×4 (19:47→23:16)
[2023-04-12] MEDS: Hyoscyamine 0.125 MG Tab.SL SL PRN (19:52)
[2023-04-12] MEDS: Ondansetron 4 MG Tab.DIS PO PRN (19:52)
[2023-04-12] MEDS: Bacitracin Oint 28.35 GM Tube TOP SCH (20:01)
[2023-04-12] MEDS: Gabapentin 100 MG Cap PO SCH (20:01)
[2023-04-12] MEDS: Enoxaparin 40 MG/0.4 ML Syringe SUBCUT SCH (20:01)
[2023-04-12] MEDS: Magnesium Oxide 400 MG Tab PO SCH (20:01)
[2023-04-12] MEDS: busPIRone 10 MG Tab PO SCH (22:06)
[2023-04-12] MEDS: Magnesium Sulfate/Water 2 GM in Premix Bag 1 BAG IV SCH (22:06)
[2023-04-12] MEDS: Zolpidem 5 MG Tab PO SCH (22:06)
[2023-04-13] MEDS: Acetaminophen/Codeine 300-30 MG Tab PO PRN ×6 (01:53→22:21)
[2023-04-13] MEDS: Haloperidol Lactate 5 MG/ML SDV IVPUSH PRN (01:54)
[2023-04-13] MEDS: Magnesium Sulfate/Water 2 GM in Premix Bag 1 BAG IV SCH (02:02)
[2023-04-13] MEDS: tiZANidine 2 MG Tab PO PRN (04:51)
[2023-04-13] MEDS: Hyoscyamine 0.125 MG Tab.SL SL PRN ×3 (04:51→18:20)
[2023-04-13] MEDS: Ondansetron 4 MG Tab.DIS PO PRN ×3 (04:51→22:22)
[2023-04-13] MEDS: Sodium Chloride 0.9% 1,000 ML IV SCH (04:54)
[2023-04-13 05:25] LABS: BASOPHILS ABSOLUTE AUTO 0.07 K/uL (0.00-0.10); BASOPHILS PERCENT AUTO 0.6 % (0.1-1.3); EOSINOPHILS PERCENT AUTO 4.5 % (0.0-5.4); HEMOGLOBIN 9.2 g/dL (11.2-15.5); IMMATURE GRAN ABSOLUTE AUTO 0.03 K/uL (0.00-0.23); IMMATURE GRAN PERCENT AUTO 0.3 % (0.0-0.7); LYMPHOCYTES ABSOLUTE AUTO 3.25 K/uL (0.8-3.3); LYMPHOCYTES PERCENT AUTO 29.1 % (11.4-47.7); MEAN CORPUSCULAR HEMOGLOBIN 30.3 pg (31.6-35.5); MEAN CORPUSCULAR HGB CONC 32.9 g/dL (31.6-35.5); MEAN CORPUSCULAR VOLUME 92.1 fL (81.4-99.0); MONOCYTES ABSOLUTE AUTO 1.06 K/uL (0.20-0.90); MONOCYTES PERCENT AUTO 9.5 % (3.3-12.6); NEUTROPHILS ABSOLUTE AUTO 6.25 K/uL (1.0-7.6); PLATELET COUNT,PLT 593 K/uL (130-375); RED BLOOD CELL COUNT 3.04 M/uL (3.77-5.24); WHITE BLOOD CELL COUNT,WBC 11.2 K/uL (3.2-11.0)
[2023-04-13 05:38] LABS: CALCIUM 7.7 mg/dL (8.5-10.1); CREATININE 0.5 mg/dL (0.6-1.0); EST CRCL DRUG DOSING (CG) 106.8 mL/min; MAGNESIUM 2.7 mg/dL (1.8-2.4); POTASSIUM,K 3.5 mmol/L (3.6-5.2)
[2023-04-13 05:46] LABS: ANION GAP 8.5 mmol/L (5.0-14.0)
[2023-04-13] MEDS: Pantoprazole 40 MG Tab.CR PO SCH (08:08)
[2023-04-13] MEDS: busPIRone 10 MG Tab PO SCH ×3 (09:23→22:07)
[2023-04-13] MEDS: Citalopram 20 MG Tab PO SCH (09:23)
[2023-04-13] MEDS: Potassium Chloride 10 MEQ in Premix Bag 1 BAG IV SCH ×4 (09:23→12:59)
[2023-04-13] MEDS: SCOPOLAMINE PATCH CHECK TOP SCH (09:24)
[2023-04-13] MEDS: Gabapentin 100 MG Cap PO SCH ×3 (09:24→22:07)
[2023-04-13] MEDS: Magnesium Oxide 400 MG Tab PO SCH ×2 (09:27→22:07)
[2023-04-13] MEDS: Bacitracin Oint 28.35 GM Tube TOP SCH ×3 (10:35→22:06)
[2023-04-13] MEDS: Zolpidem 5 MG Tab PO SCH (22:06)
[2023-04-13] MEDS: Enoxaparin 40 MG/0.4 ML Syringe SUBCUT SCH (22:07)
[2023-04-14] MEDS: Acetaminophen/Codeine 300-30 MG Tab PO PRN ×6 (02:58→23:28)
[2023-04-14] MEDS: Ondansetron 4 MG Tab.DIS PO PRN (06:15)
[2023-04-14 06:17] LABS: CALCIUM 8.1 mg/dL (8.5-10.1); CREATININE 0.5 mg/dL (0.6-1.0); EST CRCL DRUG DOSING (CG) 108.57 mL/min; POTASSIUM,K 4.3 mmol/L (3.6-5.2)
[2023-04-14 06:30] LABS: ANION GAP 12.3 mmol/L (5.0-14.0)
[2023-04-14] MEDS: Hyoscyamine 0.125 MG Tab.SL SL PRN ×2 (07:40→17:11)
[2023-04-14] MEDS: Pantoprazole 40 MG Tab.CR PO SCH ×2 (07:41→20:35)
[2023-04-14] MEDS: Haloperidol Lactate 5 MG/ML SDV IVPUSH PRN (09:08)
[2023-04-14] MEDS ORDERED: Polyethylene Glycol 3350 Powder 17 GM Packet PO ONE ×2 (09:58→13:30)
[2023-04-14] MEDS: Bacitracin Oint 28.35 GM Tube TOP SCH ×3 (10:10→20:33)
[2023-04-14] MEDS: Magnesium Oxide 400 MG Tab PO SCH ×2 (10:11→20:34)
[2023-04-14] MEDS: Gabapentin 100 MG Cap PO SCH ×3 (10:11→20:34)
[2023-04-14] MEDS: Citalopram 20 MG Tab PO SCH (10:11)
[2023-04-14] MEDS: busPIRone 10 MG Tab PO SCH ×3 (10:12→20:34)
[2023-04-14] MEDS: SCOPOLAMINE PATCH CHECK TOP SCH (10:14)
[2023-04-14] MEDS: Potassium Chloride 10% 20 MEQ/15 ML Soln 15 ML UD Cup PO SCH ×3 (11:32→20:35)
[2023-04-14] MEDS: Sennosides/Docusate Sodium 50-8.6 MG Tab PO SCH ×2 (11:33→20:35)
[2023-04-14] MEDS: Sucralfate Suspension 1 GM/10 ML Cup PO SCH ×3 (11:33→19:40)
[2023-04-14] MEDS: LORazepam 0.5 MG Tab PO PRN ×2 (13:42→19:40)
[2023-04-14] MEDS ORDERED: Potassium Chloride 10 MEQ in Premix Bag 4 BAG IV ONE (17:15)
[2023-04-14] MEDS: Zolpidem 5 MG Tab PO SCH (20:33)
[2023-04-14] MEDS: Enoxaparin 40 MG/0.4 ML Syringe SUBCUT SCH (20:34)
[2023-04-15] MEDS ORDERED: Sodium Chloride 0.9% 1,000 ML IV SCH (00:01)
[2023-04-15] MEDS: LORazepam 0.5 MG Tab PO PRN ×3 (01:51→20:40)
[2023-04-15] MEDS: Ondansetron 4 MG Tab.DIS PO PRN (02:11)
[2023-04-15] MEDS: Acetaminophen/Codeine 300-30 MG Tab PO PRN ×5 (04:40→22:31)
[2023-04-15] MEDS: Haloperidol Lactate 5 MG/ML SDV IVPUSH PRN ×2 (04:44→16:59)
[2023-04-15 05:45] LABS: CALCIUM 8.6 mg/dL (8.5-10.1); CREATININE 0.4 mg/dL (0.6-1.0); EST CRCL DRUG DOSING (CG) 128.65 mL/min; POTASSIUM,K 4.4 mmol/L (3.6-5.2)
[2023-04-15 05:50] LABS: ANION GAP 13.4 mmol/L (5.0-14.0)
[2023-04-15] MEDS: Sucralfate Suspension 1 GM/10 ML Cup PO SCH ×4 (09:27→20:31)
[2023-04-15] MEDS: Citalopram 20 MG Tab PO SCH (09:29)
[2023-04-15] MEDS: busPIRone 10 MG Tab PO SCH ×3 (09:29→20:32)
[2023-04-15] MEDS: Gabapentin 100 MG Cap PO SCH ×3 (09:29→20:32)
[2023-04-15] MEDS: Bacitracin Oint 28.35 GM Tube TOP SCH ×3 (09:30→20:31)
[2023-04-15] MEDS: Pantoprazole 40 MG Tab.CR PO SCH ×2 (09:31→16:53)
[2023-04-15] MEDS ORDERED: Midazolam 1 MG/ML 2 ML SDV ONE (10:07)
[2023-04-15] MEDS ORDERED: Propofol 200 MG/20 ML SDV ONE ×2 (10:07→10:23)
[2023-04-15] MEDS ORDERED: fentaNYL 50 MCG/ML SDV ONE (10:07)
[2023-04-15] MEDS ORDERED: Lidocaine 1% with EPINEPHrine 1:100,000 50 ML MDV ONE (10:31)
[2023-04-15] MEDS: SCOPOLAMINE PATCH CHECK TOP SCH (11:27)
[2023-04-15] MEDS: Magnesium Oxide 400 MG Tab PO SCH ×2 (11:27→20:33)
[2023-04-15] MEDS: Potassium Chloride 10% 20 MEQ/15 ML Soln 15 ML UD Cup PO SCH ×2 (11:27→20:32)
[2023-04-15] MEDS: Sennosides/Docusate Sodium 50-8.6 MG Tab PO SCH ×2 (11:28→20:33)
[2023-04-15] MEDS: Nystatin Susp 100,000 Unit/ML 5 ML UD Cup PO SCH ×3 (11:29→21:03)
[2023-04-15] MEDS: Hyoscyamine 0.125 MG Tab.SL SL PRN ×2 (12:28→18:29)
[2023-04-15] MEDS: Divalproex Sodium Delayed-Release 250 MG Tab.CR PO SCH (16:54)
[2023-04-15] MEDS: Scopalamine 1mg/3day Transdermal Patch TRDERM SCH (17:02)
[2023-04-15] MEDS: Enoxaparin 40 MG/0.4 ML Syringe SUBCUT SCH (20:32)
[2023-04-15] MEDS: Zolpidem 5 MG Tab PO SCH (20:40)
[2023-04-16] MEDS: LORazepam 0.5 MG Tab PO PRN ×4 (03:06→21:06)
[2023-04-16] MEDS: Acetaminophen/Codeine 300-30 MG Tab PO PRN ×5 (03:06→21:06)
[2023-04-16] MEDS: Nystatin Susp 100,000 Unit/ML 5 ML UD Cup PO SCH ×4 (05:40→21:06)
[2023-04-16] MEDS: Hyoscyamine 0.125 MG Tab.SL SL PRN ×3 (05:41→18:14)
[2023-04-16] MEDS: Ondansetron 4 MG Tab.DIS PO PRN (05:41)
[2023-04-16] MEDS: Sucralfate Suspension 1 GM/10 ML Cup PO SCH ×4 (08:17→20:08)
[2023-04-16] MEDS: Gabapentin 100 MG Cap PO SCH ×3 (08:17→20:09)
[2023-04-16] MEDS: busPIRone 10 MG Tab PO SCH ×3 (08:17→20:09)
[2023-04-16] MEDS: Sennosides/Docusate Sodium 50-8.6 MG Tab PO SCH ×2 (08:20→20:09)
[2023-04-16] MEDS: Citalopram 20 MG Tab PO SCH (08:20)
[2023-04-16] MEDS: Magnesium Oxide 400 MG Tab PO SCH ×2 (08:20→20:09)
[2023-04-16] MEDS: Divalproex Sodium Delayed-Release 250 MG Tab.CR PO SCH ×2 (08:20→16:55)
[2023-04-16] MEDS: Pantoprazole 40 MG Tab.CR PO SCH ×2 (08:20→16:54)
[2023-04-16] MEDS: Potassium Chloride 10% 20 MEQ/15 ML Soln 15 ML UD Cup PO SCH ×2 (08:22→20:09)
[2023-04-16] MEDS: Bacitracin Oint 28.35 GM Tube TOP SCH ×3 (08:23→20:08)
[2023-04-16] MEDS: SCOPOLAMINE PATCH CHECK TOP SCH (08:39)
[2023-04-16] MEDS: Haloperidol Lactate 5 MG/ML SDV IVPUSH PRN ×2 (08:39→22:28)
[2023-04-16] MEDS: Zolpidem 5 MG Tab PO SCH (20:08)
[2023-04-16] MEDS: Enoxaparin 40 MG/0.4 ML Syringe SUBCUT SCH (20:09)
[2023-04-16] MEDS: tiZANidine 2 MG Tab PO PRN (23:16)
[2023-04-17] MEDS: Acetaminophen/Codeine 300-30 MG Tab PO PRN ×5 (02:22→20:16)
[2023-04-17] MEDS: LORazepam 0.5 MG Tab PO PRN ×2 (05:07→20:40)
[2023-04-17] MEDS: Hyoscyamine 0.125 MG Tab.SL SL PRN ×2 (05:07→17:07)
[2023-04-17] MEDS: Nystatin Susp 100,000 Unit/ML 5 ML UD Cup PO SCH ×4 (05:07→21:52)
[2023-04-17] MEDS: Divalproex Sodium Delayed-Release 250 MG Tab.CR PO SCH ×2 (07:05→16:27)
[2023-04-17] MEDS: Pantoprazole 40 MG Tab.CR PO SCH ×2 (07:05→15:47)
[2023-04-17] MEDS: Sucralfate Suspension 1 GM/10 ML Cup PO SCH ×4 (07:05→20:17)
[2023-04-17] MEDS: Haloperidol Lactate 5 MG/ML SDV IVPUSH PRN ×2 (07:10→19:27)
[2023-04-17] MEDS: Bacitracin Oint 28.35 GM Tube TOP SCH ×3 (09:11→20:18)
[2023-04-17] MEDS: busPIRone 10 MG Tab PO SCH ×3 (09:12→20:18)
[2023-04-17] MEDS: Gabapentin 100 MG Cap PO SCH ×3 (09:12→20:19)
[2023-04-17] MEDS: Magnesium Oxide 400 MG Tab PO SCH ×2 (09:12→20:19)
[2023-04-17] MEDS: Sennosides/Docusate Sodium 50-8.6 MG Tab PO SCH ×2 (09:12→20:20)
[2023-04-17] MEDS: Citalopram 20 MG Tab PO SCH (09:12)
[2023-04-17] MEDS: Potassium Chloride 10% 20 MEQ/15 ML Soln 15 ML UD Cup PO SCH ×2 (09:13→20:19)
[2023-04-17] MEDS: SCOPOLAMINE PATCH CHECK TOP SCH (09:23)
[2023-04-17] MEDS: tiZANidine 2 MG Tab PO PRN (14:21)
[2023-04-17] MEDS: Enoxaparin 40 MG/0.4 ML Syringe SUBCUT SCH (20:18)
[2023-04-17] MEDS: Zolpidem 5 MG Tab PO SCH (20:22)
[2023-04-18] MEDS: Acetaminophen/Codeine 300-30 MG Tab PO PRN ×4 (03:32→21:10)
[2023-04-18] MEDS: Haloperidol Lactate 5 MG/ML SDV IVPUSH PRN ×2 (03:32→08:02)
[2023-04-18] MEDS: LORazepam 0.5 MG Tab PO PRN ×2 (03:33→16:21)
[2023-04-18] MEDS: Nystatin Susp 100,000 Unit/ML 5 ML UD Cup PO SCH ×4 (05:24→21:07)
[2023-04-18 06:26] LABS: HEMATOCRIT 34.8 % (34.3-46.0); HEMOGLOBIN 11.5 g/dL (11.2-15.5); MEAN CORPUSCULAR HEMOGLOBIN 30.3 pg (31.6-35.5); MEAN CORPUSCULAR VOLUME 91.6 fL (81.4-99.0); RED BLOOD CELL COUNT 3.8 M/uL (3.77-5.24)
[2023-04-18 06:36] LABS: A/G RATIO 0.6 (1.2-2.2); ALANINE AMINOTRANSFERASE,ALT 4 U/L (12-78); ALBUMIN 2.8 g/dL (3.4-5.0); ALKALINE PHOSPHATASE 99 U/L (46-116); ASPARTATE AMNIOTRANSFERASE,AST 8 U/L (15-37); BILIRUBIN TOTAL 0.2 mg/dL (0.2-1.0); BLOOD UREA NITROGEN,BUN 17 mg/dL (7-18); CALCIUM 8.9 mg/dL (8.5-10.1); CARBON DIOXIDE,CO2 30 mmol/L (21-32); CHLORIDE,CL 98 mmol/L (100-108); CREATININE 0.6 mg/dL (0.6-1.0); EST CRCL DRUG DOSING (CG) 87.02 mL/min; ESTIMATED GFR 108 mL/min (>60); GLUCOSE RANDOM 120 mg/dL (74-106); MAGNESIUM 1.8 mg/dL (1.8-2.4); PROTEIN TOTAL,TP 7.2 g/dL (6.4-8.2); SODIUM,NA 137 mmol/L (140-148)
[2023-04-18] MEDS: Sucralfate Suspension 1 GM/10 ML Cup PO SCH ×4 (07:56→21:10)
[2023-04-18] MEDS: Pantoprazole 40 MG Tab.CR PO SCH ×2 (07:56→16:21)
[2023-04-18] MEDS: Potassium Chloride 10% 20 MEQ/15 ML Soln 15 ML UD Cup PO SCH ×2 (08:02→20:56)
[2023-04-18] MEDS: Bacitracin Oint 28.35 GM Tube TOP SCH ×3 (08:03→20:56)
[2023-04-18] MEDS: Gabapentin 100 MG Cap PO SCH ×3 (08:03→21:11)
[2023-04-18] MEDS: Divalproex Sodium Delayed-Release 250 MG Tab.CR PO SCH ×2 (08:03→16:21)
[2023-04-18] MEDS: Magnesium Oxide 400 MG Tab PO SCH ×2 (08:03→21:11)
[2023-04-18] MEDS: Citalopram 20 MG Tab PO SCH (08:04)
[2023-04-18] MEDS: SCOPOLAMINE PATCH CHECK TOP SCH (08:04)
[2023-04-18] MEDS: busPIRone 10 MG Tab PO SCH ×3 (08:04→21:10)
[2023-04-18] MEDS: Sennosides/Docusate Sodium 50-8.6 MG Tab PO SCH ×2 (08:04→21:12)
[2023-04-18] MEDS: Haloperidol 5 MG Tab PO PRN ×2 (14:30→21:14)
[2023-04-18] MEDS: Scopalamine 1mg/3day Transdermal Patch TRDERM SCH (17:35)
[2023-04-18] MEDS: Enoxaparin 40 MG/0.4 ML Syringe SUBCUT SCH (21:07)
[2023-04-18] MEDS: Hyoscyamine 0.125 MG Tab.SL SL PRN (21:10)
[2023-04-18] MEDS: Zolpidem 5 MG Tab PO SCH (21:10)
[2023-04-19] MEDS: LORazepam 0.5 MG Tab PO PRN ×4 (00:38→20:47)
[2023-04-19] MEDS: Nystatin Susp 100,000 Unit/ML 5 ML UD Cup PO SCH ×4 (05:45→21:00)
[2023-04-19] MEDS: Haloperidol 5 MG Tab PO PRN ×4 (05:45→20:47)
[2023-04-19] MEDS: Acetaminophen/Codeine 300-30 MG Tab PO PRN ×4 (05:46→19:47)
[2023-04-19] MEDS: Hyoscyamine 0.125 MG Tab.SL SL PRN ×3 (08:14→23:37)
[2023-04-19] MEDS: Citalopram 20 MG Tab PO SCH (08:15)
[2023-04-19] MEDS: Bacitracin Oint 28.35 GM Tube TOP SCH ×3 (08:15→20:47)
[2023-04-19] MEDS: busPIRone 10 MG Tab PO SCH ×3 (08:15→20:48)
[2023-04-19] MEDS: Sucralfate Suspension 1 GM/10 ML Cup PO SCH ×4 (08:15→19:47)
[2023-04-19] MEDS: Potassium Chloride 10% 20 MEQ/15 ML Soln 15 ML UD Cup PO SCH ×2 (08:15→20:48)
[2023-04-19] MEDS: Divalproex Sodium Delayed-Release 250 MG Tab.CR PO SCH ×2 (08:15→16:51)
[2023-04-19] MEDS: Gabapentin 100 MG Cap PO SCH ×3 (08:16→20:48)
[2023-04-19] MEDS: SCOPOLAMINE PATCH CHECK TOP SCH (08:16)
[2023-04-19] MEDS: Magnesium Oxide 400 MG Tab PO SCH ×2 (08:16→20:48)
[2023-04-19] MEDS: Pantoprazole 40 MG Tab.CR PO SCH ×2 (08:16→15:43)
[2023-04-19] MEDS: Sennosides/Docusate Sodium 50-8.6 MG Tab PO SCH ×2 (08:17→20:48)
[2023-04-19] MEDS: Zolpidem 5 MG Tab PO SCH (20:47)
[2023-04-20] MEDS: Acetaminophen/Codeine 300-30 MG Tab PO PRN ×5 (04:53→21:13)
[2023-04-20] MEDS: LORazepam 0.5 MG Tab PO PRN ×4 (04:53→23:46)
[2023-04-20] MEDS: Haloperidol 5 MG Tab PO PRN ×5 (04:57→21:14)
[2023-04-20] MEDS: Nystatin Susp 100,000 Unit/ML 5 ML UD Cup PO SCH ×4 (05:01→21:16)
[2023-04-20] MEDS: Hyoscyamine 0.125 MG Tab.SL SL PRN ×3 (07:40→19:41)
[2023-04-20] MEDS: Pantoprazole 40 MG Tab.CR PO SCH ×2 (07:46→16:56)
[2023-04-20] MEDS: Divalproex Sodium Delayed-Release 250 MG Tab.CR PO SCH (07:46)
[2023-04-20] MEDS: Sucralfate Suspension 1 GM/10 ML Cup PO SCH ×4 (07:46→19:08)
[2023-04-20] MEDS: Bacitracin Oint 28.35 GM Tube TOP SCH ×3 (08:23→21:16)
[2023-04-20] MEDS: Citalopram 20 MG Tab PO SCH (08:24)
[2023-04-20] MEDS: busPIRone 10 MG Tab PO SCH (08:24)
[2023-04-20] MEDS: Magnesium Oxide 400 MG Tab PO SCH ×2 (08:25→21:16)
[2023-04-20] MEDS: Gabapentin 100 MG Cap PO SCH ×3 (08:25→21:16)
[2023-04-20] MEDS: SCOPOLAMINE PATCH CHECK TOP SCH (08:25)
[2023-04-20] MEDS: Potassium Chloride 10% 20 MEQ/15 ML Soln 15 ML UD Cup PO SCH ×2 (08:26→21:16)
[2023-04-20] MEDS: Sennosides/Docusate Sodium 50-8.6 MG Tab PO SCH ×2 (08:27→21:16)
[2023-04-20] MEDS: Diclofenac Sodium 1% Gel 100 GM Tube TOP PRN (14:02)
[2023-04-20] MEDS: Vitamin B6-pyridOXINE 50 MG Tab PO SCH (16:56)
[2023-04-20] MEDS: Cyanocobalamin (Vitamin B12) 1,000 MCG Tab PO SCH (16:57)
[2023-04-20] MEDS: Zolpidem 5 MG Tab PO SCH (21:13)
[2023-04-21] MEDS: Hyoscyamine 0.125 MG Tab.SL SL PRN ×3 (05:09→20:01)
[2023-04-21] MEDS: Haloperidol 5 MG Tab PO PRN ×4 (05:09→19:16)
[2023-04-21] MEDS: Nystatin Susp 100,000 Unit/ML 5 ML UD Cup PO SCH ×4 (05:09→21:03)
[2023-04-21] MEDS: Acetaminophen/Codeine 300-30 MG Tab PO PRN ×4 (05:10→19:15)
[2023-04-21 06:00] LABS: HEMATOCRIT 29.2 % (34.3-46.0); HEMOGLOBIN 9.4 g/dL (11.2-15.5); MEAN CORPUSCULAR HEMOGLOBIN 29.9 pg (31.6-35.5); MEAN CORPUSCULAR HGB CONC 32.2 g/dL (31.6-35.5); RED BLOOD CELL COUNT 3.14 M/uL (3.77-5.24); WHITE BLOOD CELL COUNT,WBC 10.3 K/uL (3.2-11.0)
[2023-04-21 06:15] LABS: CALCIUM 8.3 mg/dL (8.5-10.1); CREATININE 0.5 mg/dL (0.6-1.0); EST CRCL DRUG DOSING (CG) 106.38 mL/min; MAGNESIUM 1.8 mg/dL (1.8-2.4); POTASSIUM,K 3.9 mmol/L (3.6-5.2)
[2023-04-21 06:26] LABS: ANION GAP 8.9 mmol/L (5.0-14.0)
[2023-04-21] MEDS: Sucralfate Suspension 1 GM/10 ML Cup PO SCH ×4 (07:57→20:01)
[2023-04-21] MEDS: Pantoprazole 40 MG Tab.CR PO SCH ×2 (07:57→17:00)
[2023-04-21] MEDS: LORazepam 0.5 MG Tab PO PRN ×3 (08:01→20:01)
[2023-04-21] MEDS: Sennosides/Docusate Sodium 50-8.6 MG Tab PO SCH ×2 (08:02→20:57)
[2023-04-21] MEDS: Gabapentin 100 MG Cap PO SCH ×3 (08:02→20:57)
[2023-04-21] MEDS: FLUoxetine 20 MG Cap PO SCH (08:02)
[2023-04-21] MEDS: Bacitracin Oint 28.35 GM Tube TOP SCH ×3 (08:03→20:56)
[2023-04-21] MEDS: Magnesium Oxide 400 MG Tab PO SCH ×2 (08:03→20:57)
[2023-04-21] MEDS: Folic Acid 1 MG Tab PO SCH (08:03)
[2023-04-21] MEDS: SCOPOLAMINE PATCH CHECK TOP SCH (08:04)
[2023-04-21] MEDS: Potassium Chloride 10% 20 MEQ/15 ML Soln 15 ML UD Cup PO SCH ×2 (08:04→20:57)
[2023-04-21] MEDS: Cholecalciferol (Vitamin D3) 25 MCG Tab PO SCH (08:05)
[2023-04-21] MEDS: Diclofenac Sodium 1% Gel 100 GM Tube TOP PRN (08:11)
[2023-04-21] MEDS: Cyanocobalamin (Vitamin B12) 1,000 MCG Tab PO SCH (17:01)
[2023-04-21] MEDS: Vitamin B6-pyridOXINE 50 MG Tab PO SCH (17:02)
[2023-04-21] MEDS: Scopalamine 1mg/3day Transdermal Patch TRDERM SCH (17:02)
[2023-04-21] MEDS: Zolpidem 5 MG Tab PO SCH (20:56)
[2023-04-22] MEDS: Haloperidol 5 MG Tab PO PRN ×5 (00:07→20:07)
[2023-04-22] MEDS: Acetaminophen/Codeine 300-30 MG Tab PO PRN ×4 (00:08→18:50)
[2023-04-22] MEDS: Nystatin Susp 100,000 Unit/ML 5 ML UD Cup PO SCH ×4 (05:51→21:10)
[2023-04-22] MEDS: Sucralfate Suspension 1 GM/10 ML Cup PO SCH ×4 (08:03→20:07)
[2023-04-22] MEDS: Pantoprazole 40 MG Tab.CR PO SCH ×2 (08:04→17:04)
[2023-04-22] MEDS: Bacitracin Oint 28.35 GM Tube TOP SCH ×3 (08:05→21:09)
[2023-04-22] MEDS: FLUoxetine 20 MG Cap PO SCH (08:05)
[2023-04-22] MEDS: Folic Acid 1 MG Tab PO SCH (08:05)
[2023-04-22] MEDS: Magnesium Oxide 400 MG Tab PO SCH ×2 (08:06→21:09)
[2023-04-22] MEDS: Gabapentin 100 MG Cap PO SCH ×3 (08:06→21:08)
[2023-04-22] MEDS: Cholecalciferol (Vitamin D3) 25 MCG Tab PO SCH (08:06)
[2023-04-22] MEDS: Sennosides/Docusate Sodium 50-8.6 MG Tab PO SCH ×2 (08:06→21:09)
[2023-04-22] MEDS: Potassium Chloride 10% 20 MEQ/15 ML Soln 15 ML UD Cup PO SCH ×2 (08:07→21:08)
[2023-04-22] MEDS: SCOPOLAMINE PATCH CHECK TOP SCH (12:11)
[2023-04-22] MEDS: LORazepam 0.5 MG Tab PO PRN ×2 (13:58→21:08)
[2023-04-22] MEDS: Hyoscyamine 0.125 MG Tab.SL SL PRN ×2 (14:00→20:07)
[2023-04-22] MEDS: tiZANidine 2 MG Tab PO PRN (16:11)
[2023-04-22] MEDS: Cyanocobalamin (Vitamin B12) 1,000 MCG Tab PO SCH (17:04)
[2023-04-22] MEDS: Vitamin B6-pyridOXINE 50 MG Tab PO SCH (17:04)
[2023-04-22] MEDS: Zolpidem 5 MG Tab PO SCH (21:08)
[2023-04-22] MEDS: Diclofenac Sodium 1% Gel 100 GM Tube TOP PRN (21:09)
[2023-04-23] MEDS: Acetaminophen/Codeine 300-30 MG Tab PO PRN ×6 (00:18→21:00)
[2023-04-23] MEDS: Haloperidol 5 MG Tab PO PRN ×6 (00:18→20:59)
[2023-04-23 04:47] LABS: HEMATOCRIT 29.4 % (34.3-46.0); HEMOGLOBIN 9.7 g/dL (11.2-15.5); MEAN CORPUSCULAR HEMOGLOBIN 30.3 pg (31.6-35.5); MEAN CORPUSCULAR VOLUME 91.9 fL (81.4-99.0); RED BLOOD CELL COUNT 3.2 M/uL (3.77-5.24); WHITE BLOOD CELL COUNT,WBC 8.2 K/uL (3.2-11.0)
[2023-04-23 05:16] LABS: A/G RATIO 0.7 (1.2-2.2); ALANINE AMINOTRANSFERASE,ALT 4 U/L (12-78); ALBUMIN 2.4 g/dL (3.4-5.0); ALKALINE PHOSPHATASE 98 U/L (46-116); ASPARTATE AMNIOTRANSFERASE,AST 13 U/L (15-37); BILIRUBIN TOTAL 0.2 mg/dL (0.2-1.0); BLOOD UREA NITROGEN,BUN 16 mg/dL (7-18); CALCIUM 8.6 mg/dL (8.5-10.1); CARBON DIOXIDE,CO2 31 mmol/L (21-32); CHLORIDE,CL 103 mmol/L (100-108); CREATININE 0.5 mg/dL (0.6-1.0); EST CRCL DRUG DOSING (CG) 107.25 mL/min; ESTIMATED GFR 113 mL/min (>60); GLUCOSE RANDOM 117 mg/dL (74-106); POTASSIUM,K 4.3 mmol/L (3.6-5.2); SODIUM,NA 137 mmol/L (140-148)
[2023-04-23 05:22] LABS: ANION GAP 7.3 mmol/L (5.0-14.0)
[2023-04-23] MEDS: Nystatin Susp 100,000 Unit/ML 5 ML UD Cup PO SCH ×4 (05:42→21:01)
[2023-04-23] MEDS: Pantoprazole 40 MG Tab.CR PO SCH ×2 (07:36→17:06)
[2023-04-23] MEDS: Sucralfate Suspension 1 GM/10 ML Cup PO SCH ×4 (07:36→19:28)
[2023-04-23] MEDS: tiZANidine 2 MG Tab PO PRN ×3 (07:39→23:31)
[2023-04-23] MEDS: Hyoscyamine 0.125 MG Tab.SL SL PRN ×2 (07:39→17:05)
[2023-04-23] MEDS: Sennosides/Docusate Sodium 50-8.6 MG Tab PO SCH ×2 (08:47→21:01)
[2023-04-23] MEDS: Bacitracin Oint 28.35 GM Tube TOP SCH ×3 (08:47→21:01)
[2023-04-23] MEDS: Gabapentin 100 MG Cap PO SCH ×3 (08:47→21:00)
[2023-04-23] MEDS: FLUoxetine 20 MG Cap PO SCH (08:47)
[2023-04-23] MEDS: Potassium Chloride 10% 20 MEQ/15 ML Soln 15 ML UD Cup PO SCH ×2 (08:48→21:00)
[2023-04-23] MEDS: Magnesium Oxide 400 MG Tab PO SCH ×2 (08:48→21:00)
[2023-04-23] MEDS: SCOPOLAMINE PATCH CHECK TOP SCH (08:48)
[2023-04-23] MEDS: Folic Acid 1 MG Tab PO SCH (08:48)
[2023-04-23] MEDS: Cholecalciferol (Vitamin D3) 25 MCG Tab PO SCH (08:49)
[2023-04-23] MEDS: LORazepam 0.5 MG Tab PO PRN ×2 (13:09→19:27)
[2023-04-23] MEDS: Vitamin B6-pyridOXINE 50 MG Tab PO SCH (17:06)
[2023-04-23] MEDS: Cyanocobalamin (Vitamin B12) 1,000 MCG Tab PO SCH (17:06)
[2023-04-23] MEDS: Ondansetron 4 MG Tab.DIS PO PRN (19:30)
[2023-04-23] MEDS: Zolpidem 5 MG Tab PO SCH (20:59)
[2023-04-24] MEDS: Acetaminophen/Codeine 300-30 MG Tab PO PRN ×5 (01:29→19:13)
[2023-04-24] MEDS: LORazepam 0.5 MG Tab PO PRN ×4 (01:29→21:12)
[2023-04-24] MEDS: Haloperidol 5 MG Tab PO PRN ×5 (01:30→19:14)
[2023-04-24] MEDS: Nystatin Susp 100,000 Unit/ML 5 ML UD Cup PO SCH ×4 (05:48→21:19)
[2023-04-24] MEDS: Hyoscyamine 0.125 MG Tab.SL SL PRN ×3 (08:24→21:12)
[2023-04-24] MEDS: tiZANidine 2 MG Tab PO PRN ×2 (08:24→16:38)
[2023-04-24] MEDS: Sucralfate Suspension 1 GM/10 ML Cup PO SCH ×4 (08:25→19:46)
[2023-04-24] MEDS: Folic Acid 1 MG Tab PO SCH (08:25)
[2023-04-24] MEDS: Pantoprazole 40 MG Tab.CR PO SCH ×2 (08:25→16:43)
[2023-04-24] MEDS: Cholecalciferol (Vitamin D3) 25 MCG Tab PO SCH (08:26)
[2023-04-24] MEDS: Potassium Chloride 10% 20 MEQ/15 ML Soln 15 ML UD Cup PO SCH ×2 (08:26→21:11)
[2023-04-24] MEDS: FLUoxetine 20 MG Cap PO SCH (08:26)
[2023-04-24] MEDS: Bacitracin Oint 28.35 GM Tube TOP SCH ×3 (08:26→21:18)
[2023-04-24] MEDS: Gabapentin 100 MG Cap PO SCH ×3 (08:26→21:18)
[2023-04-24] MEDS: Magnesium Oxide 400 MG Tab PO SCH ×2 (08:26→21:18)
[2023-04-24] MEDS: Sennosides/Docusate Sodium 50-8.6 MG Tab PO SCH ×2 (08:27→21:19)
[2023-04-24] MEDS: SCOPOLAMINE PATCH CHECK TOP SCH (10:19)
[2023-04-24] MEDS: Diclofenac Sodium 1% Gel 100 GM Tube TOP PRN (16:38)
[2023-04-24] MEDS: Triamcinolone Acetonide 0.1% Crm 15 GM Tube TOP SCH ×2 (16:40→21:19)
[2023-04-24] MEDS: Cyanocobalamin (Vitamin B12) 1,000 MCG Tab PO SCH (16:45)
[2023-04-24] MEDS: Vitamin B6-pyridOXINE 50 MG Tab PO SCH (16:45)
[2023-04-24] MEDS: Scopalamine 1mg/3day Transdermal Patch TRDERM SCH (19:46)
[2023-04-24] MEDS: Zolpidem 5 MG Tab PO SCH (21:12)
[2023-04-25] MEDS: tiZANidine 2 MG Tab PO PRN (00:38)
[2023-04-25] MEDS: Acetaminophen/Codeine 300-30 MG Tab PO PRN ×3 (00:38→08:54)
[2023-04-25] MEDS: Haloperidol 5 MG Tab PO PRN ×3 (00:41→08:55)
[2023-04-25] MEDS: Hyoscyamine 0.125 MG Tab.SL SL PRN ×2 (04:59→11:06)
[2023-04-25] MEDS: Nystatin Susp 100,000 Unit/ML 5 ML UD Cup PO SCH ×2 (05:00→10:41)
[2023-04-25 05:05] VITALS: BP 89/52; PULSE 78
[2023-04-25] MEDS: LORazepam 0.5 MG Tab PO PRN (06:03)
[2023-04-25] MEDS: Gabapentin 100 MG Cap PO SCH (08:13)
[2023-04-25] MEDS: Pantoprazole 40 MG Tab.CR PO SCH (08:13)
[2023-04-25] MEDS: Folic Acid 1 MG Tab PO SCH (08:13)
[2023-04-25] MEDS: Magnesium Oxide 400 MG Tab PO SCH (08:13)
[2023-04-25] MEDS: Sucralfate Suspension 1 GM/10 ML Cup PO SCH ×2 (08:13→11:07)
[2023-04-25] MEDS: Potassium Chloride 10% 20 MEQ/15 ML Soln 15 ML UD Cup PO SCH (08:14)
[2023-04-25] MEDS: FLUoxetine 20 MG Cap PO SCH (08:14)
[2023-04-25] MEDS: Triamcinolone Acetonide 0.1% Crm 15 GM Tube TOP SCH (08:14)
[2023-04-25] MEDS: Sennosides/Docusate Sodium 50-8.6 MG Tab PO SCH (08:14)
[2023-04-25] MEDS: Bacitracin Oint 28.35 GM Tube TOP SCH (08:15)
[2023-04-25] MEDS: Cholecalciferol (Vitamin D3) 25 MCG Tab PO SCH (08:15)
[2023-04-25] MEDS: SCOPOLAMINE PATCH CHECK TOP SCH (08:21)
[2023-05-10] MEDS ORDERED: Cyanocobalamin (Vitamin B12) 1,000 MCG/ML SDV IM SCH (09:00)
== END 2023-04-25 11:30 | disposition home health service (06) | DRG 951 ==
LOC: JP.ED 11:28 → JP.MS 16:27 → INTOOBSV 16:27 → OBSVTOIN 04-16 11:35
PROVIDERS: ADMIT Hospitalist; ATTEND Internal Medicine
PROC: 0DP07UZ Removal of Feeding Device from Upper Intestinal Tract, Via Natural or Artificial Opening (ICD-10-PCS; principal; 2023-04-16)
PROC: 0DH67UZ Insertion of Feeding Device into Stomach, Via Natural or Artificial Opening (ICD-10-PCS; 2023-04-16)
PROC: 0DJ08ZZ Inspection of Upper Intestinal Tract, Via Natural or Artificial Opening Endoscopic (ICD-10-PCS; 2023-04-16)
DX: E87.6 Hypokalemia (principal); E86.0 Dehydration; E83.42 Hypomagnesemia; E87.1 Hypo-osmolality and hyponatremia; R13.10 Dysphagia, unspecified; E46 Unspecified protein-calorie malnutrition; Z93.1 Gastrostomy status; F41.9 Anxiety disorder, unspecified; D72.829 Elevated white blood cell count, unspecified; F32.9 Major depressive disorder, single episode, unspecified; K21.00 Gastro-esophageal reflux disease with esophagitis, without bleeding; Z68.1 Body mass index [BMI] 19.9 or less, adult; Z11.52 Encounter for screening for COVID-19; Z87.442 Personal history of urinary calculi; Z79.899 Other long term (current) drug therapy; Z90.49 Acquired absence of other specified parts of digestive tract; Z90.710 Acquired absence of both cervix and uterus; Z90.721 Acquired absence of ovaries, unilateral; Z98.890 Other specified postprocedural states
CPT/HCPCS: 0241U; 36415; 71045; 71045-26; 74177; 74177-26; 80048; 80053; 81001; 83605; 83735; 84132; 84145; 84484; 85025; 85027; 86140; 92610-GN; 93005; 93010; 97161-GP; 99284; A9270-GY; J0780; J1170; J1630; J1650; J2250; J2704; J2765; J3010; J3475; J3480; J3490; J7030; Q0162; Q9967

== ENCOUNTER 2023-05-01 14:49 | Emergency (ER) | payer BC, MEDICAID ==
[2023-05-01 14:57] VITALS: BP 82/54; PULSE 87
== END 2023-05-01 15:31 | disposition left against medical advice (07) ==
LOC: JP.ED 14:49
DX: Z53.21 Procedure and treatment not carried out due to patient leaving prior to being seen by health care provider (principal)

== ENCOUNTER 2023-05-03 12:04 | Emergency (ER) | payer BC, MEDICAID ==
[2023-05-03] MEDS ORDERED: Prochlorperazine 10 MG/2 ML SDV IM ONE (12:53)
[2023-05-03 13:11] LABS: BASE EXCESS VENOUS 2.2 mm/L; BASOPHILS ABSOLUTE AUTO 0.04 K/uL (0.00-0.10); BASOPHILS PERCENT AUTO 0.3 % (0.1-1.3); BICARBONATE,VENOUS 24.5 mmol/L; CARBOXYHEMOGLOBIN 2.5 % (0.0-1.6); EOSINOPHILS PERCENT AUTO 0.1 % (0.0-5.4); HEMATOCRIT 34.5 % (34.3-46.0); HEMOGLOBIN 11.6 g/dL (11.2-15.5); IMMATURE GRAN ABSOLUTE AUTO 0.07 K/uL (0.00-0.23); IMMATURE GRAN PERCENT AUTO 0.6 % (0.0-0.7); LYMPHOCYTES ABSOLUTE AUTO 1.78 K/uL (0.8-3.3); LYMPHOCYTES PERCENT AUTO 15.3 % (11.4-47.7); MEAN CORPUSCULAR HEMOGLOBIN 30.2 pg (31.6-35.5); MEAN CORPUSCULAR HGB CONC 33.6 g/dL (31.6-35.5); MEAN CORPUSCULAR VOLUME 89.8 fL (81.4-99.0); METHEMOGLOBIN 0.9 %; MONOCYTES ABSOLUTE AUTO 0.38 K/uL (0.20-0.90); MONOCYTES PERCENT AUTO 3.3 % (3.3-12.6); NEUTROPHILS ABSOLUTE AUTO 9.34 K/uL (1.0-7.6); NEUTROPHILS PERCENT AUTO 80.4 % (40.0-78.1); O2 SATURATION VENOUS 46.6; PCO2 VENOUS 31.9 mm/Hg; PH,VENOUS 7.498 (7.350-7.450); PLATELET COUNT,PLT 614 K/uL (130-375); RED BLOOD CELL COUNT 3.84 M/uL (3.77-5.24); TOTAL HEMOGLOBIN 12.2 g/dL (12.0-16.0); WHITE BLOOD CELL COUNT,WBC 11.6 K/uL (3.2-11.0)
[2023-05-03 13:17] LABS: EOSINOPHILS ABSOLUTE AUTO 0.01 K/uL (0.00-0.40); PO2 VENOUS 26.6 mm/Hg
[2023-05-03 13:30] LABS: APPEARANCE,URINE CLOUDY (CLEAR); BILIRUBIN,URINE NEGATIVE (NEGATIVE); COLOR,URINE YELLOW (YELLOW); GLUCOSE,URINE NEGATIVE (NEGATIVE); KETONES,URINE 15 mg/dL (NEGATIVE); LEUKOCYTE ESTERASE,URINE NEGATIVE (NEGATIVE); NITRITE,URINE NEGATIVE (NEGATIVE); OCCULT BLOOD,URINE NEGATIVE (NEGATIVE); PH,URINE 8.5 (5.0-8.0); PROTEIN,URINE 100 mg/dL (NEGATIVE); UROBILINOGEN,URINE 0.2 EU/dL (0.2-1.0)
[2023-05-03 13:37] LABS: AMPHETAMINES SCREEN, URINE NEGATIVE (NEGATIVE); BARBITURATE SCREEN,URINE NEGATIVE (NEGATIVE); BENZODIAZEPINES SCREEN,URINE NEGATIVE (NEGATIVE); METHADONE SCREEN, URINE PRESUMPTIVE POSITIVE (NEGATIVE); METHAMPHETAMINES SCREEN, URINE NEGATIVE (NEGATIVE); OXYCODONE SCREEN,URINE NEGATIVE (NEGATIVE); PROPOXYPHENE SCREEN,URINE NEGATIVE (NEGATIVE); THC SCREEN,URINE 50 NG/ML NEGATIVE (NEGATIVE)
[2023-05-03 13:38] LABS: A/G RATIO 0.6 (1.2-2.2); ALANINE AMINOTRANSFERASE,ALT 6 U/L (12-78); ALBUMIN 3.3 g/dL (3.4-5.0); ALKALINE PHOSPHATASE 130 U/L (46-116); ASPARTATE AMNIOTRANSFERASE,AST 10 U/L (15-37); BILIRUBIN TOTAL 0.4 mg/dL (0.2-1.0); BLOOD UREA NITROGEN,BUN 14 mg/dL (7-18); CALCIUM 9.3 mg/dL (8.5-10.1); CARBON DIOXIDE,CO2 26 mmol/L (21-32); CHLORIDE,CL 97 mmol/L (100-108); CREATININE 0.8 mg/dL (0.6-1.0); EST CRCL DRUG DOSING (CG) 66.56 mL/min; ESTIMATED GFR 89 mL/min (>60); GLUCOSE RANDOM 143 mg/dL (74-106); POTASSIUM,K 3.6 mmol/L (3.6-5.2); PROTEIN TOTAL,TP 8.5 g/dL (6.4-8.2); SODIUM,NA 137 mmol/L (140-148)
[2023-05-03 13:41] LABS: ANION GAP 17.6 mmol/L (5.0-14.0)
[2023-05-03 13:47] LABS: AMORPHOUS SEDIMENT,URINE FEW; BACTERIA,URINE NOT SEEN; EPITHELIAL CELLS,URINE RARE; MUCUS,URINE NOT SEEN; RBC,URINE 0-5 (0-5); WBC,URINE 0-5 (0-5)
[2023-05-03] MEDS ORDERED: Sodium Chloride 0.9% 1,000 ML IV ONE ×2 (14:16→16:31)
[2023-05-03] MEDS ORDERED: HYDROmorphone 0.5 MG/0.5 ML Syringe IVPUSH ONE (14:16)
[2023-05-03] MEDS ORDERED: Ondansetron 4 MG/2 ML SDV IVPUSH ONE ×2 (14:16→16:27)
[2023-05-03 14:37] LABS: CORONAVIRUS COVID-19 NAA NEGATIVE (NEGATIVE); INFLUENZA A NAA NEGATIVE (NEGATIVE); INFLUENZA B NAA NEGATIVE (NEGATIVE); RESPIRATORY SYNCYTIAL VIR NAA NEGATIVE (NEGATIVE)
[2023-05-03] MEDS ORDERED: Magnesium Sulfate/Water 2 GM in Premix Bag 1 BAG IV ONE (15:12)
[2023-05-03] MEDS ORDERED: Sodium Chloride 0.9% 80 ML IV ONE (17:05)
[2023-05-03] MEDS ORDERED: Sodium Chloride 0.9% 10 ML Syringe FLUSH ONE (17:05)
[2023-05-03] MEDS ORDERED: Iopamidol 755 Mg/ML 100 ML Bottle IV ONE (17:05)
[2023-05-03 17:15] VITALS: BP 145/69; PULSE 58
[2023-05-03] MEDS ORDERED: Acetaminophen/Codeine 300-30 MG Tab PO ONE (17:42)
== END 2023-05-03 18:30 | disposition home or self-care (01) ==
LOC: JP.ED 12:04
DX: R53.1 Weakness (principal); E86.0 Dehydration; R06.4 Hyperventilation; E83.42 Hypomagnesemia; R11.2 Nausea with vomiting, unspecified; I10 Essential (primary) hypertension; K21.9 Gastro-esophageal reflux disease without esophagitis; Z20.822 Contact with and (suspected) exposure to COVID-19; Z90.710 Acquired absence of both cervix and uterus; Z79.899 Other long term (current) drug therapy
CPT/HCPCS: 0241U; 36415; 71045; 71275; 74177; 80053; 80305; 80307; 81001; 82803; 83605; 83735; 84145; 84484; 85025; 85379; 93005; 96361; 96365; 96366; 96367; 96372; 96375; 96376; 99285; A9270; J0780; J1170; J1790; J2405; J3475; J3490; J7030; Q9967

== ENCOUNTER 2023-05-05 05:59 | Emergency (ER) | payer BC, MEDICAID ==
[2023-05-05 06:24] LABS: BASOPHILS ABSOLUTE AUTO 0.03 K/uL (0.00-0.10); BASOPHILS PERCENT AUTO 0.2 % (0.1-1.3); HEMATOCRIT 31.8 % (34.3-46.0); IMMATURE GRAN ABSOLUTE AUTO 0.07 K/uL (0.00-0.23); IMMATURE GRAN PERCENT AUTO 0.5 % (0.0-0.7); LYMPHOCYTES ABSOLUTE AUTO 2.24 K/uL (0.8-3.3); LYMPHOCYTES PERCENT AUTO 15.4 % (11.4-47.7); MEAN CORPUSCULAR HEMOGLOBIN 30.7 pg (31.6-35.5); MEAN CORPUSCULAR HGB CONC 34.6 g/dL (31.6-35.5); MEAN CORPUSCULAR VOLUME 88.8 fL (81.4-99.0); MONOCYTES ABSOLUTE AUTO 1.19 K/uL (0.20-0.90); MONOCYTES PERCENT AUTO 8.2 % (3.3-12.6); NEUTROPHILS ABSOLUTE AUTO 11.02 K/uL (1.0-7.6); NEUTROPHILS PERCENT AUTO 75.7 % (40.0-78.1); PLATELET COUNT,PLT 574 K/uL (130-375); RED BLOOD CELL COUNT 3.58 M/uL (3.77-5.24); WHITE BLOOD CELL COUNT,WBC 14.6 K/uL (3.2-11.0)
[2023-05-05 06:48] LABS: A/G RATIO 0.7 (1.2-2.2); ALANINE AMINOTRANSFERASE,ALT 7 U/L (12-78); ALBUMIN 3.2 g/dL (3.4-5.0); ALKALINE PHOSPHATASE 100 U/L (46-116); ASPARTATE AMNIOTRANSFERASE,AST 14 U/L (15-37); BILIRUBIN TOTAL 0.4 mg/dL (0.2-1.0); BLOOD UREA NITROGEN,BUN 25 mg/dL (7-18); CARBON DIOXIDE,CO2 29 mmol/L (21-32); CHLORIDE,CL 97 mmol/L (100-108); CREATININE 0.6 mg/dL (0.6-1.0); EST CRCL DRUG DOSING (CG) 85.88 mL/min; ESTIMATED GFR 108 mL/min (>60); GLUCOSE RANDOM 147 mg/dL (74-106); PROTEIN TOTAL,TP 7.7 g/dL (6.4-8.2); SODIUM,NA 136 mmol/L (140-148)
[2023-05-05 06:53] LABS: TROPONIN I HIGH SENSITIVITY 171.2 pg/mL (<=60.3)
[2023-05-05] MEDS ORDERED: Heparin Sodium 5,000 Units/ML Vial IVPUSH ONE (07:31)
[2023-05-05] MEDS ORDERED: Potassium Chloride 20 MEQ in Premix Bag 1 BAG IV ONE (07:32)
[2023-05-05] MEDS ORDERED: Aspirin 81 MG Tab.Chew PO ONE (07:35)
[2023-05-05] MEDS ORDERED: Heparin Sodium/D5W 25,000 UNITS/500 ML BAG IV SCH (07:45)
[2023-05-05] MEDS ORDERED: Morphine 2 MG/ML SYRINGE IVPUSH ONE ×2 (08:02→10:11)
[2023-05-05] MEDS ORDERED: Nitroglycerin 0.4 MG Tab.SL SL ONE ×2 (08:02→09:50)
[2023-05-05] MEDS ORDERED: Pantoprazole 40 MG Vial IVPUSH ONE (08:02)
[2023-05-05] MEDS ORDERED: Ondansetron 4 MG/2 ML SDV IVPUSH ONE (08:04)
[2023-05-05 11:02] VITALS: PULSE 100
[2023-05-05 11:03] VITALS: BP 151/96
== END 2023-05-05 10:55 | disposition other institution (70) ==
LOC: JP.ED 05:59
DX: R10.10 Upper abdominal pain, unspecified (principal); G89.29 Other chronic pain; R07.2 Precordial pain; R11.2 Nausea with vomiting, unspecified; I10 Essential (primary) hypertension; K21.9 Gastro-esophageal reflux disease without esophagitis; Z87.891 Personal history of nicotine dependence; Z79.899 Other long term (current) drug therapy; Z90.710 Acquired absence of both cervix and uterus
CPT/HCPCS: 36415; 80053; 83690; 84484; 85025; 93005; 96365; 96366; 96368; 96375; 96376; 99285; A9270; C9113; J1644; J2270; J2405; J3480

== ENCOUNTER 2023-05-16 08:49 | Inpatient (IN) | payer BC, MEDICAID ==
[2023-05-16 10:58] LABS: CORONAVIRUS COVID-19 NAA NEGATIVE (NEGATIVE); INFLUENZA A NAA NEGATIVE (NEGATIVE); INFLUENZA B NAA NEGATIVE (NEGATIVE); RESPIRATORY SYNCYTIAL VIR NAA NEGATIVE (NEGATIVE)
[2023-05-16 11:02] LABS: BASOPHILS ABSOLUTE AUTO 0.08 K/uL (0.00-0.10); BASOPHILS PERCENT AUTO 0.7 % (0.1-1.3); EOSINOPHILS ABSOLUTE AUTO 0.24 K/uL (0.00-0.40); HEMATOCRIT 33.7 % (34.3-46.0); HEMOGLOBIN 11.3 g/dL (11.2-15.5); IMMATURE GRAN ABSOLUTE AUTO 0.04 K/uL (0.00-0.23); IMMATURE GRAN PERCENT AUTO 0.3 % (0.0-0.7); LYMPHOCYTES ABSOLUTE AUTO 2.34 K/uL (0.8-3.3); LYMPHOCYTES PERCENT AUTO 19.9 % (11.4-47.7); MEAN CORPUSCULAR HEMOGLOBIN 31.6 pg (31.6-35.5); MEAN CORPUSCULAR HGB CONC 33.5 g/dL (31.6-35.5); MEAN CORPUSCULAR VOLUME 94.1 fL (81.4-99.0); MONOCYTES ABSOLUTE AUTO 0.91 K/uL (0.20-0.90); MONOCYTES PERCENT AUTO 7.7 % (3.3-12.6); NEUTROPHILS ABSOLUTE AUTO 8.17 K/uL (1.0-7.6); NEUTROPHILS PERCENT AUTO 69.4 % (40.0-78.1); PLATELET COUNT,PLT 526 K/uL (130-375); RED BLOOD CELL COUNT 3.58 M/uL (3.77-5.24); WHITE BLOOD CELL COUNT,WBC 11.8 K/uL (3.2-11.0)
[2023-05-16 11:21] LABS: MAGNESIUM 1.7 mg/dL (1.8-2.4)
[2023-05-16 11:22] LABS: A/G RATIO 0.9 (1.2-2.2); ALANINE AMINOTRANSFERASE,ALT 19 U/L (12-78); ALBUMIN 3.2 g/dL (3.4-5.0); ALKALINE PHOSPHATASE 80 U/L (46-116); ASPARTATE AMNIOTRANSFERASE,AST 15 U/L (15-37); BILIRUBIN TOTAL 0.3 mg/dL (0.2-1.0); BLOOD UREA NITROGEN,BUN 22 mg/dL (7-18); C-REACTIVE PROTEIN < 0.50 mg/dL (<0.50); CALCIUM 8.7 mg/dL (8.5-10.1); CARBON DIOXIDE,CO2 28 mmol/L (21-32); CHLORIDE,CL 99 mmol/L (100-108); CREATININE 0.6 mg/dL (0.6-1.0); EST CRCL DRUG DOSING (CG) 84.66 mL/min; ESTIMATED GFR 108 mL/min (>60); GLUCOSE RANDOM 107 mg/dL (74-106); POTASSIUM,K 4.3 mmol/L (3.6-5.2); PROTEIN TOTAL,TP 6.6 g/dL (6.4-8.2); SODIUM,NA 136 mmol/L (140-148)
[2023-05-16 11:23] LABS: ANION GAP 13.3 mmol/L (5.0-14.0)
[2023-05-16] MEDS ORDERED: Haloperidol 5 MG Tab PO PRN (12:04)
[2023-05-16] MEDS ORDERED: Ondansetron 4 MG/2 ML SDV IV PRN (12:07)
[2023-05-16] MEDS: Sodium Chloride 0.9% 1,000 ML IV SCH ×2 (13:37→20:39)
[2023-05-16] MEDS: busPIRone 10 MG Tab PO SCH ×2 (13:38→20:02)
[2023-05-16] MEDS: Bacitracin Oint 1 GM U/D Packet TOP SCH ×2 (13:38→20:03)
[2023-05-16] MEDS: buPROPion 150 MG Tab.ER PO SCH (13:40)
[2023-05-16] MEDS: Gabapentin 100 MG Cap PO SCH ×2 (13:40→20:02)
[2023-05-16] MEDS: LORazepam 0.5 MG Tab PO PRN ×2 (14:00→20:01)
[2023-05-16] MEDS ORDERED: Dexamethasone 4 MG/ML SDV IVPUSH SCH (14:00)
[2023-05-16] MEDS ORDERED: Scopalamine 1mg/3day Transdermal Patch TOP SCH (14:00)
[2023-05-16] MEDS ORDERED: Magnesium Sulfate/Water 2 GM in Premix Bag 1 BAG IV ONE (14:00)
[2023-05-16] MEDS: Acetaminophen/Codeine 300-30 MG Tab PO PRN ×3 (14:00→22:04)
[2023-05-16] MEDS ORDERED: Folic Acid 50 MG/10 ML MDV IV SCH (15:45)
[2023-05-16] MEDS ORDERED: Folic Acid 1 MG in Sodium Chloride 0.9% 50 ML IV SCH (16:00)
[2023-05-16] MEDS ORDERED: Thiamine 100 MG in Sodium Chloride 0.9% 100 ML IV SCH (16:00)
[2023-05-16] MEDS ORDERED: MVI, Adult with Vitamin K 10 ML, Folic Acid 1 MG, Thiamine 100 MG in Sodium Chloride 0.... IV ONE ×4 (16:00)
[2023-05-16] MEDS: Pantoprazole 40 MG Tab.CR PO SCH (16:26)
[2023-05-16] MEDS: Vitamin B6-pyridOXINE 50 MG Tab PO SCH (16:27)
[2023-05-16] MEDS: Cyanocobalamin (Vitamin B12) 1,000 MCG Tab SL SCH (16:32)
[2023-05-16] MEDS ORDERED: Thiamine 200 MG/2 ML MDV IVPUSH ONE (17:00)
[2023-05-16] MEDS: Hyoscyamine 0.125 MG Tab.SL SL PRN (17:19)
[2023-05-16] MEDS: Ondansetron 4 MG Tab.DIS PO PRN (17:19)
[2023-05-16] MEDS ORDERED: Zolpidem 5 MG Tab PO ONE (20:00)
[2023-05-16] MEDS: Potassium Chloride 10% 20 MEQ/15 ML Soln 15 ML UD Cup PO SCH (20:02)
[2023-05-16 22:11] LABS: APPEARANCE,URINE CLOUDY (CLEAR); BILIRUBIN,URINE NEGATIVE (NEGATIVE); COLOR,URINE YELLOW (YELLOW); GLUCOSE,URINE NEGATIVE (NEGATIVE); KETONES,URINE NEGATIVE (NEGATIVE); LEUKOCYTE ESTERASE,URINE NEGATIVE (NEGATIVE); NITRITE,URINE NEGATIVE (NEGATIVE); OCCULT BLOOD,URINE NEGATIVE (NEGATIVE); PH,URINE 7.5 (5.0-8.0); PROTEIN,URINE NEGATIVE (NEGATIVE); UROBILINOGEN,URINE 0.2 EU/dL (0.2-1.0)
[2023-05-16 22:21] LABS: AMPHETAMINES SCREEN, URINE NEGATIVE (NEGATIVE); BARBITURATE SCREEN,URINE NEGATIVE (NEGATIVE); BENZODIAZEPINES SCREEN,URINE PRESUMPTIVE POSITIVE (NEGATIVE); METHADONE SCREEN, URINE NEGATIVE (NEGATIVE); METHAMPHETAMINES SCREEN, URINE NEGATIVE (NEGATIVE); OXYCODONE SCREEN,URINE NEGATIVE (NEGATIVE); PROPOXYPHENE SCREEN,URINE NEGATIVE (NEGATIVE); THC SCREEN,URINE 50 NG/ML NEGATIVE (NEGATIVE)
[2023-05-16 22:22] LABS: AMORPHOUS SEDIMENT,URINE MANY; BACTERIA,URINE FEW; EPITHELIAL CELLS,URINE RARE; MUCUS,URINE NOT SEEN; RBC,URINE 0-5 (0-5); WBC,URINE 0-5 (0-5)
[2023-05-17] MEDS: LORazepam 0.5 MG Tab PO PRN ×4 (02:38→21:51)
[2023-05-17] MEDS: Acetaminophen/Codeine 300-30 MG Tab PO PRN ×6 (02:38→22:36)
[2023-05-17] MEDS: Sodium Chloride 0.9% 1,000 ML IV SCH (04:40)
[2023-05-17 05:37] LABS: HEMATOCRIT 27.2 % (34.3-46.0); MEAN CORPUSCULAR HEMOGLOBIN 31.4 pg (31.6-35.5); MEAN CORPUSCULAR HGB CONC 33.1 g/dL (31.6-35.5); MEAN CORPUSCULAR VOLUME 94.8 fL (81.4-99.0); RED BLOOD CELL COUNT 2.87 M/uL (3.77-5.24); WHITE BLOOD CELL COUNT,WBC 14.1 K/uL (3.2-11.0)
[2023-05-17 06:01] LABS: IRON,FE 78 ug/dL (50-170); PERCENT FE SATURATION 31 % (20-55); TOTAL IRON BINDING CAPACITY 251 ug/dl (250-450)
[2023-05-17 06:26] LABS: A/G RATIO 0.9 (1.2-2.2); ALANINE AMINOTRANSFERASE,ALT 15 U/L (12-78); ALBUMIN 2.6 g/dL (3.4-5.0); ALKALINE PHOSPHATASE 62 U/L (46-116); ASPARTATE AMNIOTRANSFERASE,AST 8 U/L (15-37); BILIRUBIN TOTAL 0.3 mg/dL (0.2-1.0); BLOOD UREA NITROGEN,BUN 16 mg/dL (7-18); CALCIUM 7.9 mg/dL (8.5-10.1); CARBON DIOXIDE,CO2 29 mmol/L (21-32); CHLORIDE,CL 100 mmol/L (100-108); CREATININE 0.5 mg/dL (0.6-1.0); ESTIMATED GFR 113 mL/min (>60); FERRITIN 184 ng/ml (8-388); GLUCOSE RANDOM 122 mg/dL (74-106); MAGNESIUM 1.7 mg/dL (1.8-2.4); PHOSPHORUS 3.7 mg/dL (2.5-4.9); POTASSIUM,K 4.2 mmol/L (3.6-5.2); PROTEIN TOTAL,TP 5.5 g/dL (6.4-8.2); SODIUM,NA 133 mmol/L (140-148)
[2023-05-17 06:29] LABS: ANION GAP 8.2 mmol/L (5.0-14.0)
[2023-05-17] MEDS: Pantoprazole 40 MG Tab.CR PO SCH ×2 (07:50→15:38)
[2023-05-17] MEDS ORDERED: Magnesium Sulfate/Water 2 GM in Premix Bag 1 BAG IV ONE (08:00)
[2023-05-17] MEDS: Magnesium Oxide 400 MG Tab PO SCH (09:00)
[2023-05-17] MEDS: Gabapentin 100 MG Cap PO SCH ×3 (09:00→21:15)
[2023-05-17] MEDS ORDERED: Folic Acid 1 MG Tab PO SCH (09:00)
[2023-05-17] MEDS: Potassium Chloride 10% 20 MEQ/15 ML Soln 15 ML UD Cup PO SCH ×2 (09:00→21:15)
[2023-05-17] MEDS: busPIRone 10 MG Tab PO SCH ×3 (09:00→21:16)
[2023-05-17] MEDS ORDERED: Folic Acid 1 MG in Sodium Chloride 0.9% 50 ML IV SCH (09:00)
[2023-05-17] MEDS: Bacitracin Oint 1 GM U/D Packet TOP SCH ×3 (09:00→21:15)
[2023-05-17] MEDS: SCOPOLAMINE PATCH CHECK TOP SCH (09:01)
[2023-05-17] MEDS: Citalopram 20 MG Tab PO SCH (09:01)
[2023-05-17] MEDS: Hyoscyamine 0.125 MG Tab.SL SL PRN (10:28)
[2023-05-17] MEDS: Thiamine 100 MG in Sodium Chloride 0.9% 100 ML IV SCH (10:28)
[2023-05-17] MEDS: Ondansetron 4 MG Tab.DIS PO PRN (10:28)
[2023-05-17] MEDS: buPROPion 150 MG Tab.ER PO SCH (14:20)
[2023-05-17] MEDS ORDERED: Sodium Chloride 0.9% 1,000 ML IV SCH (14:56)
[2023-05-17] MEDS: Metoclopramide 10 MG Tab PO SCH (15:36)
[2023-05-17] MEDS: Vitamin B6-pyridOXINE 50 MG Tab PO SCH (16:00)
[2023-05-17] MEDS: Cyanocobalamin (Vitamin B12) 1,000 MCG Tab SL SCH (16:00)
[2023-05-17] MEDS ORDERED: Folic Acid 50 MG/10 ML MDV IV ONE (17:00)
[2023-05-17] MEDS ORDERED: Zolpidem 5 MG Tab PO ONE (21:39)
[2023-05-18] MEDS: Acetaminophen/Codeine 300-30 MG Tab PO PRN ×6 (03:21→23:38)
[2023-05-18] MEDS: LORazepam 0.5 MG Tab PO PRN ×4 (04:05→23:38)
[2023-05-18 05:44] LABS: HEMATOCRIT 25.8 % (34.3-46.0); HEMOGLOBIN 8.5 g/dL (11.2-15.5); MEAN CORPUSCULAR HEMOGLOBIN 31.7 pg (31.6-35.5); MEAN CORPUSCULAR HGB CONC 32.9 g/dL (31.6-35.5); MEAN CORPUSCULAR VOLUME 96.3 fL (81.4-99.0); RED BLOOD CELL COUNT 2.68 M/uL (3.77-5.24); WHITE BLOOD CELL COUNT,WBC 16.5 K/uL (3.2-11.0)
[2023-05-18 06:24] LABS: A/G RATIO 0.9 (1.2-2.2); ALANINE AMINOTRANSFERASE,ALT 14 U/L (12-78); ALBUMIN 2.5 g/dL (3.4-5.0); ALKALINE PHOSPHATASE 65 U/L (46-116); ASPARTATE AMNIOTRANSFERASE,AST 8 U/L (15-37); BILIRUBIN TOTAL 0.3 mg/dL (0.2-1.0); BLOOD UREA NITROGEN,BUN 11 mg/dL (7-18); CARBON DIOXIDE,CO2 28 mmol/L (21-32); CHLORIDE,CL 101 mmol/L (100-108); CREATININE 0.5 mg/dL (0.6-1.0); ESTIMATED GFR 113 mL/min (>60); GLUCOSE RANDOM 109 mg/dL (74-106); PHOSPHORUS 4.3 mg/dL (2.5-4.9); POTASSIUM,K 4.1 mmol/L (3.6-5.2); PROTEIN TOTAL,TP 5.4 g/dL (6.4-8.2); SODIUM,NA 134 mmol/L (140-148)
[2023-05-18 06:34] LABS: ANION GAP 9.1 mmol/L (5.0-14.0)
[2023-05-18] MEDS: Pantoprazole 40 MG Tab.CR PO SCH ×2 (07:02→15:30)
[2023-05-18] MEDS: Metoclopramide 10 MG Tab PO SCH ×3 (07:02→15:31)
[2023-05-18] MEDS: Bacitracin Oint 1 GM U/D Packet TOP SCH ×3 (09:43→21:20)
[2023-05-18] MEDS: Magnesium Oxide 400 MG Tab PO SCH (09:44)
[2023-05-18] MEDS: busPIRone 10 MG Tab PO SCH ×3 (09:44→21:20)
[2023-05-18] MEDS: Citalopram 20 MG Tab PO SCH (09:44)
[2023-05-18] MEDS: Gabapentin 100 MG Cap PO SCH ×3 (09:44→21:20)
[2023-05-18] MEDS: SCOPOLAMINE PATCH CHECK TOP SCH (09:45)
[2023-05-18] MEDS: Potassium Chloride 10% 20 MEQ/15 ML Soln 15 ML UD Cup PO SCH ×2 (09:45→21:20)
[2023-05-18] MEDS: Folic Acid 1 MG Tab PO SCH (10:05)
[2023-05-18] MEDS: Thiamine 100 MG Tab PO SCH (10:05)
[2023-05-18] MEDS: Thiamine 100 MG in Sodium Chloride 0.9% 100 ML IV SCH (10:48)
[2023-05-18] MEDS: Hyoscyamine 0.125 MG Tab.SL SL PRN (11:37)
[2023-05-18] MEDS ORDERED: Sodium Chloride 0.9% 10 ML Syringe FLUSH PRN (11:37)
[2023-05-18] MEDS ORDERED: Iopamidol 612 MG/ML 30 ML SDV PO ONE (11:37)
[2023-05-18] MEDS ORDERED: Iopamidol 612 MG/ML 100 ML Bottle IV PRN (11:37)
[2023-05-18] MEDS ORDERED: Sodium Chloride 0.9% 100 ML IV SCH (12:00)
[2023-05-18] MEDS: buPROPion 150 MG Tab.ER PO SCH (14:39)
[2023-05-18] MEDS: Vitamin B6-pyridOXINE 50 MG Tab PO SCH (17:32)
[2023-05-18] MEDS: Cyanocobalamin (Vitamin B12) 1,000 MCG Tab SL SCH (17:32)
[2023-05-18] MEDS: Zolpidem 5 MG Tab PO SCH (21:19)
[2023-05-19 01:30] LABS: COPPER,SERUM/PLASMA 95.6 ug/dL (80.0-155.0); SELENIUM, SERUM/PLASMA 95.3 ug/L (23.0-190.0); ZINC,SERUM/PLASMA 63.2 ug/dL (60.0-120.0)
[2023-05-19] MEDS: Acetaminophen/Codeine 300-30 MG Tab PO PRN ×5 (03:46→21:46)
[2023-05-19] MEDS: LORazepam 0.5 MG Tab PO PRN ×4 (05:49→23:49)
[2023-05-19 06:14] LABS: HEMATOCRIT 29.9 % (34.3-46.0); HEMOGLOBIN 9.7 g/dL (11.2-15.5); MEAN CORPUSCULAR HEMOGLOBIN 31.2 pg (31.6-35.5); MEAN CORPUSCULAR HGB CONC 32.4 g/dL (31.6-35.5); MEAN CORPUSCULAR VOLUME 96.1 fL (81.4-99.0); RED BLOOD CELL COUNT 3.11 M/uL (3.77-5.24); WHITE BLOOD CELL COUNT,WBC 9.8 K/uL (3.2-11.0)
[2023-05-19 06:28] LABS: C-REACTIVE PROTEIN 2.92 mg/dL (<0.50); CALCIUM 8.6 mg/dL (8.5-10.1); CREATININE 0.5 mg/dL (0.6-1.0); EST CRCL DRUG DOSING (CG) 105.37 mL/min
[2023-05-19] MEDS ORDERED: Bisacodyl 10 MG Supp RECTAL PRN (08:02)
[2023-05-19] MEDS: Metoclopramide 10 MG Tab PO SCH ×3 (08:50→17:43)
[2023-05-19] MEDS: Gabapentin 100 MG Cap PO SCH ×3 (08:51→20:04)
[2023-05-19] MEDS: busPIRone 10 MG Tab PO SCH ×3 (08:51→20:03)
[2023-05-19] MEDS: Folic Acid 1 MG Tab PO SCH (08:51)
[2023-05-19] MEDS: Bacitracin Oint 1 GM U/D Packet TOP SCH ×2 (08:51→13:30)
[2023-05-19] MEDS: Sennosides/Docusate Sodium 50-8.6 MG Tab PO SCH (08:51)
[2023-05-19] MEDS: Pantoprazole 40 MG Tab.CR PO SCH ×2 (08:51→17:44)
[2023-05-19] MEDS: Potassium Chloride 10% 20 MEQ/15 ML Soln 15 ML UD Cup PO SCH ×2 (08:52→20:03)
[2023-05-19] MEDS: Magnesium Oxide 400 MG Tab PO SCH (08:52)
[2023-05-19] MEDS: SCOPOLAMINE PATCH CHECK TOP SCH (08:52)
[2023-05-19] MEDS: Thiamine 100 MG Tab PO SCH (08:52)
[2023-05-19] MEDS: Citalopram 20 MG Tab PO SCH (08:52)
[2023-05-19 10:40] LABS: VITAMIN B1,WHOLE BLOOD 243 nmol/L (70-180)
[2023-05-19] MEDS ORDERED: Propofol 200 MG/20 ML SDV ONE (11:24)
[2023-05-19] MEDS ORDERED: Midazolam 1 MG/ML 2 ML SDV ONE (11:24)
[2023-05-19] MEDS ORDERED: fentaNYL 100 MCG/2 ML SDV ONE (11:24)
[2023-05-19 12:15] LABS: VITAMIN A (RETINOL) 0.93 mg/L (0.30-1.20); VITAMIN A (RETINYL PALMITATE) 0.06 mg/L (0.00-0.10); VITAMIN A,SER/PLA - INTERP Normal; VITAMIN E (ALPHA-TOCOPHEROL) 10.6 mg/L (5.5-18.0); VITAMIN E (GAMMA-TOCOPHEROL) 0.6 mg/L (0.0-6.0)
[2023-05-19] MEDS: buPROPion 150 MG Tab.ER PO SCH (13:30)
[2023-05-19 14:40] LABS: VITAMIN B6 PYRIDOXAL 5-PHOSPH 137.4 nmol/L (20.0-125.0)
[2023-05-19] MEDS: Cyanocobalamin (Vitamin B12) 1,000 MCG Tab SL SCH (17:44)
[2023-05-19] MEDS: Vitamin B6-pyridOXINE 50 MG Tab PO SCH (17:44)
[2023-05-19] MEDS: Bacitracin Oint 28.35 GM Tube TOP SCH (20:03)
[2023-05-19] MEDS: Zolpidem 5 MG Tab PO SCH (20:16)
[2023-05-20] MEDS: Acetaminophen/Codeine 300-30 MG Tab PO PRN ×2 (02:38→06:50)
[2023-05-20 04:42] LABS: HEMATOCRIT 29.9 % (34.3-46.0); HEMOGLOBIN 10.1 g/dL (11.2-15.5); MEAN CORPUSCULAR HEMOGLOBIN 31.7 pg (31.6-35.5); MEAN CORPUSCULAR HGB CONC 33.8 g/dL (31.6-35.5); MEAN CORPUSCULAR VOLUME 93.7 fL (81.4-99.0); RED BLOOD CELL COUNT 3.19 M/uL (3.77-5.24); WHITE BLOOD CELL COUNT,WBC 9.2 K/uL (3.2-11.0)
[2023-05-20] MEDS: Ondansetron 4 MG Tab.DIS PO PRN ×2 (04:46→20:37)
[2023-05-20 05:07] LABS: ALKALINE PHOSPHATASE 67 U/L (46-116); ASPARTATE AMNIOTRANSFERASE,AST 15 U/L (15-37); BILIRUBIN TOTAL 0.2 mg/dL (0.2-1.0); CARBON DIOXIDE,CO2 27 mmol/L (21-32); CHLORIDE,CL 100 mmol/L (100-108); PHOSPHORUS 5.4 mg/dL (2.5-4.9); POTASSIUM,K 4.8 mmol/L (3.6-5.2); PROTEIN TOTAL,TP 6.3 g/dL (6.4-8.2); SODIUM,NA 134 mmol/L (140-148)
[2023-05-20 05:24] LABS: A/G RATIO 0.8 (1.2-2.2); ALANINE AMINOTRANSFERASE,ALT 16 U/L (12-78); ALBUMIN 2.7 g/dL (3.4-5.0); BLOOD UREA NITROGEN,BUN 15 mg/dL (7-18); CALCIUM 8.5 mg/dL (8.5-10.1); CREATININE 0.3 mg/dL (0.6-1.0); EST CRCL DRUG DOSING (CG) 175.61 mL/min; ESTIMATED GFR 128 mL/min (>60); GLUCOSE RANDOM 123 mg/dL (74-106); MAGNESIUM 1.8 mg/dL (1.8-2.4)
[2023-05-20 05:25] LABS: ANION GAP 11.8 mmol/L (5.0-14.0)
[2023-05-20] MEDS: LORazepam 0.5 MG Tab PO PRN ×3 (06:51→19:02)
[2023-05-20] MEDS: Metoclopramide 10 MG Tab PO SCH ×3 (07:24→16:04)
[2023-05-20] MEDS: Pantoprazole 40 MG Tab.CR PO SCH ×2 (07:24→16:04)
[2023-05-20] MEDS: busPIRone 10 MG Tab PO SCH ×3 (08:24→20:36)
[2023-05-20] MEDS: Bacitracin Oint 28.35 GM Tube TOP SCH ×3 (08:24→20:36)
[2023-05-20] MEDS: Thiamine 100 MG Tab PO SCH (08:25)
[2023-05-20] MEDS: Enoxaparin 30 MG/0.3 ML Syringe SUBCUT SCH (08:25)
[2023-05-20] MEDS: Citalopram 20 MG Tab PO SCH (08:25)
[2023-05-20] MEDS: Magnesium Oxide 400 MG Tab PO SCH (08:25)
[2023-05-20] MEDS: Folic Acid 1 MG Tab PO SCH (08:25)
[2023-05-20] MEDS: Gabapentin 100 MG Cap PO SCH ×3 (08:26→20:36)
[2023-05-20] MEDS: Sennosides/Docusate Sodium 50-8.6 MG Tab PO SCH (08:26)
[2023-05-20] MEDS: Potassium Chloride 10% 20 MEQ/15 ML Soln 15 ML UD Cup PO SCH ×2 (08:26→20:36)
[2023-05-20] MEDS: Acetaminophen/HYDROcodone 325-7.5 MG Tab PO PRN ×4 (11:02→22:59)
[2023-05-20 12:39] LABS: VITAMIN C, PLASMA 49 umol/L (23-114)
[2023-05-20 13:06] LABS: VITAMIN K1 5.9 nmol/L (0.22-4.88)
[2023-05-20] MEDS: buPROPion 150 MG Tab.ER PO SCH (13:20)
[2023-05-20] MEDS: Cyanocobalamin (Vitamin B12) 1,000 MCG Tab SL SCH (17:33)
[2023-05-20] MEDS: Vitamin B6-pyridOXINE 50 MG Tab PO SCH (17:33)
[2023-05-20] MEDS: Zolpidem 5 MG Tab PO SCH (20:39)
[2023-05-21] MEDS: Acetaminophen/HYDROcodone 325-7.5 MG Tab PO PRN ×3 (03:46→12:24)
[2023-05-21] MEDS: LORazepam 0.5 MG Tab PO PRN ×3 (03:46→19:34)
[2023-05-21] MEDS: Pantoprazole 40 MG Tab.CR PO SCH ×2 (07:55→16:14)
[2023-05-21] MEDS: Metoclopramide 10 MG Tab PO SCH ×3 (07:55→16:14)
[2023-05-21] MEDS: busPIRone 10 MG Tab PO SCH ×3 (09:03→20:21)
[2023-05-21] MEDS: Citalopram 20 MG Tab PO SCH (09:03)
[2023-05-21] MEDS: Magnesium Oxide 400 MG Tab PO SCH (09:03)
[2023-05-21] MEDS: Gabapentin 100 MG Cap PO SCH ×3 (09:03→20:21)
[2023-05-21] MEDS: Enoxaparin 30 MG/0.3 ML Syringe SUBCUT SCH (09:03)
[2023-05-21] MEDS: Folic Acid 1 MG Tab PO SCH (09:03)
[2023-05-21] MEDS: Thiamine 100 MG Tab PO SCH (09:04)
[2023-05-21] MEDS: Potassium Chloride 10% 20 MEQ/15 ML Soln 15 ML UD Cup PO SCH ×2 (09:04→20:22)
[2023-05-21] MEDS: Sennosides/Docusate Sodium 50-8.6 MG Tab PO SCH (09:04)
[2023-05-21] MEDS: Bacitracin Oint 28.35 GM Tube TOP SCH ×3 (09:04→20:21)
[2023-05-21] MEDS ORDERED: Magnesium Hydroxide 400 MG/5 ML Susp 30 ML Cup PO PRN (13:02)
[2023-05-21] MEDS: buPROPion 150 MG Tab.ER PO SCH (13:05)
[2023-05-21] MEDS: Polyethylene Glycol 3350 Powder 17 GM Packet PO SCH (13:18)
[2023-05-21] MEDS: Acetaminophen/HYDROcodone 325-10 MG Tab PO PRN ×2 (16:13→20:21)
[2023-05-21] MEDS: Cyanocobalamin (Vitamin B12) 1,000 MCG Tab SL SCH (16:14)
[2023-05-21] MEDS: Vitamin B6-pyridOXINE 50 MG Tab PO SCH (16:14)
[2023-05-21] MEDS ORDERED: Calcium Carbonate 500 MG Tab.Chew PO PRN (19:14)
[2023-05-21] MEDS: Zolpidem 5 MG Tab PO SCH (20:31)
[2023-05-22] MEDS: Acetaminophen/HYDROcodone 325-10 MG Tab PO PRN ×6 (00:24→20:34)
[2023-05-22] MEDS: LORazepam 0.5 MG Tab PO PRN ×4 (02:15→20:34)
[2023-05-22 05:07] LABS: HEMATOCRIT 30.4 % (34.3-46.0); HEMOGLOBIN 9.8 g/dL (11.2-15.5); MEAN CORPUSCULAR HEMOGLOBIN 31.2 pg (31.6-35.5); MEAN CORPUSCULAR HGB CONC 32.2 g/dL (31.6-35.5); MEAN CORPUSCULAR VOLUME 96.8 fL (81.4-99.0); RED BLOOD CELL COUNT 3.14 M/uL (3.77-5.24); WHITE BLOOD CELL COUNT,WBC 9.3 K/uL (3.2-11.0)
[2023-05-22 05:35] LABS: A/G RATIO 0.7 (1.2-2.2); ALANINE AMINOTRANSFERASE,ALT 14 U/L (12-78); ALBUMIN 2.6 g/dL (3.4-5.0); ALKALINE PHOSPHATASE 68 U/L (46-116); ASPARTATE AMNIOTRANSFERASE,AST 9 U/L (15-37); BILIRUBIN TOTAL 0.2 mg/dL (0.2-1.0); BLOOD UREA NITROGEN,BUN 22 mg/dL (7-18); CALCIUM 8.5 mg/dL (8.5-10.1); CARBON DIOXIDE,CO2 34 mmol/L (21-32); CHLORIDE,CL 98 mmol/L (100-108); CREATININE 0.6 mg/dL (0.6-1.0); EST CRCL DRUG DOSING (CG) 86.24 mL/min; ESTIMATED GFR 108 mL/min (>60); GLUCOSE RANDOM 105 mg/dL (74-106); MAGNESIUM 1.7 mg/dL (1.8-2.4); PHOSPHORUS 4.9 mg/dL (2.5-4.9); POTASSIUM,K 4.3 mmol/L (3.6-5.2); PROTEIN TOTAL,TP 6.1 g/dL (6.4-8.2); SODIUM,NA 135 mmol/L (140-148)
[2023-05-22 05:36] LABS: ANION GAP 7.3 mmol/L (5.0-14.0)
[2023-05-22] MEDS: Metoclopramide 10 MG Tab PO SCH ×3 (07:36→16:12)
[2023-05-22] MEDS: Pantoprazole 40 MG Tab.CR PO SCH ×2 (07:36→16:12)
[2023-05-22] MEDS ORDERED: Magnesium Sulfate/Water 2 GM in Premix Bag 1 BAG IV ONE (08:00)
[2023-05-22] MEDS: Polyethylene Glycol 3350 Powder 17 GM Packet PO SCH (08:42)
[2023-05-22] MEDS: Potassium Chloride 10% 20 MEQ/15 ML Soln 15 ML UD Cup PO SCH ×2 (08:43→20:35)
[2023-05-22] MEDS: Gabapentin 100 MG Cap PO SCH ×3 (08:43→20:36)
[2023-05-22] MEDS: Bacitracin Oint 28.35 GM Tube TOP SCH ×3 (08:43→20:35)
[2023-05-22] MEDS: Enoxaparin 30 MG/0.3 ML Syringe SUBCUT SCH (08:44)
[2023-05-22] MEDS: Folic Acid 1 MG Tab PO SCH (08:44)
[2023-05-22] MEDS: Sennosides/Docusate Sodium 50-8.6 MG Tab PO SCH (08:44)
[2023-05-22] MEDS: Thiamine 100 MG Tab PO SCH ×2 (08:44→16:14)
[2023-05-22] MEDS: busPIRone 10 MG Tab PO SCH ×3 (08:44→20:36)
[2023-05-22] MEDS: Magnesium Oxide 400 MG Tab PO SCH (08:44)
[2023-05-22] MEDS: Citalopram 20 MG Tab PO SCH (08:44)
[2023-05-22] MEDS: buPROPion 150 MG Tab.ER PO SCH (14:13)
[2023-05-22] MEDS: Vitamin B6-pyridOXINE 50 MG Tab PO SCH (16:12)
[2023-05-22] MEDS: Cyanocobalamin (Vitamin B12) 1,000 MCG Tab SL SCH (16:17)
[2023-05-22] MEDS: Zolpidem 5 MG Tab PO SCH (20:34)
[2023-05-22] MEDS: Multivitamins with Iron Tab.Chew CHEW SCH (20:35)
[2023-05-23] MEDS: Acetaminophen/HYDROcodone 325-10 MG Tab PO PRN ×6 (00:31→20:45)
[2023-05-23] MEDS: LORazepam 0.5 MG Tab PO PRN ×4 (03:02→20:45)
[2023-05-23] MEDS: Gabapentin 100 MG Cap PO SCH ×3 (08:22→20:45)
[2023-05-23] MEDS: Pantoprazole 40 MG Tab.CR PO SCH ×2 (08:22→16:42)
[2023-05-23] MEDS: Metoclopramide 10 MG Tab PO SCH ×3 (08:22→16:43)
[2023-05-23] MEDS: busPIRone 10 MG Tab PO SCH ×3 (08:22→20:46)
[2023-05-23] MEDS: Citalopram 20 MG Tab PO SCH (08:23)
[2023-05-23] MEDS: Potassium Chloride 10% 20 MEQ/15 ML Soln 15 ML UD Cup PO SCH ×2 (08:23→20:45)
[2023-05-23] MEDS: Enoxaparin 30 MG/0.3 ML Syringe SUBCUT SCH (08:23)
[2023-05-23] MEDS: Folic Acid 1 MG Tab PO SCH (08:23)
[2023-05-23] MEDS: Sennosides/Docusate Sodium 50-8.6 MG Tab PO SCH (08:23)
[2023-05-23] MEDS: Polyethylene Glycol 3350 Powder 17 GM Packet PO SCH (08:24)
[2023-05-23] MEDS: Magnesium Oxide 400 MG Tab PO SCH (08:24)
[2023-05-23] MEDS: Bacitracin Oint 28.35 GM Tube TOP SCH ×3 (08:25→20:45)
[2023-05-23] MEDS ORDERED: Bisacodyl 10 MG Supp RECTAL ONE (09:19)
[2023-05-23] MEDS ORDERED: Magnesium Citrate Solution 296 ML Bottle PO ONE (09:25)
[2023-05-23] MEDS: Thiamine 100 MG Tab PO SCH (10:35)
[2023-05-23] MEDS: buPROPion 150 MG Tab.ER PO SCH (14:48)
[2023-05-23] MEDS: Vitamin B6-pyridOXINE 50 MG Tab PO SCH (16:42)
[2023-05-23] MEDS: Cyanocobalamin (Vitamin B12) 1,000 MCG Tab SL SCH (16:43)
[2023-05-23] MEDS: Zolpidem 5 MG Tab PO SCH (20:45)
[2023-05-23] MEDS: Multivitamins with Iron Tab.Chew CHEW SCH (20:46)
[2023-05-24] MEDS: Acetaminophen/HYDROcodone 325-10 MG Tab PO PRN ×5 (05:30→22:34)
[2023-05-24] MEDS: LORazepam 0.5 MG Tab PO PRN ×4 (05:31→23:57)
[2023-05-24] MEDS: Pantoprazole 40 MG Tab.CR PO SCH ×2 (07:16→16:22)
[2023-05-24] MEDS: Metoclopramide 10 MG Tab PO SCH ×3 (07:17→16:22)
[2023-05-24] MEDS: Bacitracin Oint 28.35 GM Tube TOP SCH ×3 (08:30→20:01)
[2023-05-24] MEDS: Magnesium Oxide 400 MG Tab PO SCH (08:31)
[2023-05-24] MEDS: Citalopram 20 MG Tab PO SCH (08:31)
[2023-05-24] MEDS: Enoxaparin 30 MG/0.3 ML Syringe SUBCUT SCH (08:31)
[2023-05-24] MEDS: Folic Acid 1 MG Tab PO SCH (08:31)
[2023-05-24] MEDS: busPIRone 10 MG Tab PO SCH ×3 (08:31→20:01)
[2023-05-24] MEDS: Polyethylene Glycol 3350 Powder 17 GM Packet PO SCH (08:32)
[2023-05-24] MEDS: Gabapentin 100 MG Cap PO SCH ×3 (08:32→20:00)
[2023-05-24] MEDS: Potassium Chloride 10% 20 MEQ/15 ML Soln 15 ML UD Cup PO SCH ×2 (08:32→20:01)
[2023-05-24] MEDS: Thiamine 100 MG Tab PO SCH (08:33)
[2023-05-24 08:34] LABS: NICOTINAMIDE None Det ng/mL; NICOTINIC ACID None Det ng/mL
[2023-05-24] MEDS: Sennosides/Docusate Sodium 50-8.6 MG Tab PO SCH (08:37)
[2023-05-24] MEDS ORDERED: Silver Nitrate Applicator Each TOP ONE (10:00)
[2023-05-24] MEDS: ceFAZolin 1 GM in Premix Bag 1 BAG IV SCH ×2 (12:13→20:00)
[2023-05-24] MEDS: buPROPion 150 MG Tab.ER PO SCH (14:12)
[2023-05-24] MEDS: Cyanocobalamin (Vitamin B12) 1,000 MCG Tab SL SCH (16:22)
[2023-05-24] MEDS: Vitamin B6-pyridOXINE 50 MG Tab PO SCH (16:22)
[2023-05-24] MEDS: Zolpidem 5 MG Tab PO SCH (20:00)
[2023-05-24] MEDS: Multivitamins with Iron Tab.Chew CHEW SCH (20:00)
[2023-05-25] MEDS: Acetaminophen/HYDROcodone 325-10 MG Tab PO PRN ×5 (03:06→20:57)
[2023-05-25] MEDS: ceFAZolin 1 GM in Premix Bag 1 BAG IV SCH ×3 (03:08→20:57)
[2023-05-25] MEDS: LORazepam 0.5 MG Tab PO PRN ×3 (06:24→18:28)
[2023-05-25] MEDS: Metoclopramide 10 MG Tab PO SCH ×3 (07:31→16:57)
[2023-05-25] MEDS: Pantoprazole 40 MG Tab.CR PO SCH ×2 (07:31→16:58)
[2023-05-25] MEDS: Citalopram 20 MG Tab PO SCH (09:03)
[2023-05-25] MEDS: busPIRone 10 MG Tab PO SCH ×3 (09:03→20:57)
[2023-05-25] MEDS: Bacitracin Oint 28.35 GM Tube TOP SCH ×3 (09:03→20:57)
[2023-05-25] MEDS: Enoxaparin 30 MG/0.3 ML Syringe SUBCUT SCH (09:03)
[2023-05-25] MEDS: Folic Acid 1 MG Tab PO SCH (09:03)
[2023-05-25] MEDS: Magnesium Oxide 400 MG Tab PO SCH (09:03)
[2023-05-25] MEDS: Polyethylene Glycol 3350 Powder 17 GM Packet PO SCH (09:04)
[2023-05-25] MEDS: Potassium Chloride 10% 20 MEQ/15 ML Soln 15 ML UD Cup PO SCH ×2 (09:04→20:57)
[2023-05-25] MEDS: Sennosides/Docusate Sodium 50-8.6 MG Tab PO SCH (09:04)
[2023-05-25] MEDS: Gabapentin 100 MG Cap PO SCH ×3 (09:04→20:57)
[2023-05-25] MEDS: Thiamine 100 MG Tab PO SCH (09:05)
[2023-05-25] MEDS: Ondansetron 4 MG Tab.DIS PO PRN (10:33)
[2023-05-25] MEDS: buPROPion 150 MG Tab.ER PO SCH (14:14)
[2023-05-25] MEDS: Vitamin B6-pyridOXINE 50 MG Tab PO SCH (16:58)
[2023-05-25] MEDS: Cyanocobalamin (Vitamin B12) 1,000 MCG Tab SL SCH (16:58)
[2023-05-25] MEDS: Multivitamins with Iron Tab.Chew CHEW SCH (20:57)
[2023-05-25] MEDS: Zolpidem 5 MG Tab PO SCH (21:04)
[2023-05-26] MEDS: Acetaminophen/HYDROcodone 325-10 MG Tab PO PRN ×4 (00:58→14:02)
[2023-05-26] MEDS: LORazepam 0.5 MG Tab PO PRN ×2 (00:58→08:14)
[2023-05-26] MEDS: Ondansetron 4 MG Tab.DIS PO PRN (02:33)
[2023-05-26] MEDS: ceFAZolin 1 GM in Premix Bag 1 BAG IV SCH ×2 (03:45→12:33)
[2023-05-26 04:54] LABS: HEMATOCRIT 28.5 % (34.3-46.0); HEMOGLOBIN 9.2 g/dL (11.2-15.5); MEAN CORPUSCULAR HEMOGLOBIN 31.1 pg (31.6-35.5); MEAN CORPUSCULAR HGB CONC 32.3 g/dL (31.6-35.5); MEAN CORPUSCULAR VOLUME 96.3 fL (81.4-99.0); RED BLOOD CELL COUNT 2.96 M/uL (3.77-5.24); WHITE BLOOD CELL COUNT,WBC 7.6 K/uL (3.2-11.0)
[2023-05-26 05:21] LABS: A/G RATIO 0.7 (1.2-2.2); ALANINE AMINOTRANSFERASE,ALT 13 U/L (12-78); ALBUMIN 2.4 g/dL (3.4-5.0); ALKALINE PHOSPHATASE 66 U/L (46-116); ASPARTATE AMNIOTRANSFERASE,AST 11 U/L (15-37); BILIRUBIN TOTAL 0.1 mg/dL (0.2-1.0); BLOOD UREA NITROGEN,BUN 13 mg/dL (7-18); CALCIUM 8.3 mg/dL (8.5-10.1); CARBON DIOXIDE,CO2 30 mmol/L (21-32); CHLORIDE,CL 100 mmol/L (100-108); CREATININE 0.5 mg/dL (0.6-1.0); EST CRCL DRUG DOSING (CG) 106.69 mL/min; ESTIMATED GFR 113 mL/min (>60); GLUCOSE RANDOM 121 mg/dL (74-106); MAGNESIUM 1.7 mg/dL (1.8-2.4); PHOSPHORUS 4.9 mg/dL (2.5-4.9); POTASSIUM,K 4.1 mmol/L (3.6-5.2); PROTEIN TOTAL,TP 5.9 g/dL (6.4-8.2); SODIUM,NA 137 mmol/L (140-148)
[2023-05-26 05:27] LABS: ANION GAP 11.1 mmol/L (5.0-14.0)
[2023-05-26] MEDS ORDERED: Magnesium Sulfate/Water 2 GM in Premix Bag 1 BAG IV ONE (08:00)
[2023-05-26] MEDS: Sennosides/Docusate Sodium 50-8.6 MG Tab PO SCH (08:12)
[2023-05-26] MEDS: Polyethylene Glycol 3350 Powder 17 GM Packet PO SCH (08:12)
[2023-05-26] MEDS: Pantoprazole 40 MG Tab.CR PO SCH (08:15)
[2023-05-26] MEDS: Magnesium Oxide 400 MG Tab PO SCH (08:15)
[2023-05-26] MEDS: Thiamine 100 MG Tab PO SCH (08:15)
[2023-05-26] MEDS: busPIRone 10 MG Tab PO SCH (08:15)
[2023-05-26] MEDS: Gabapentin 100 MG Cap PO SCH (08:15)
[2023-05-26] MEDS: Folic Acid 1 MG Tab PO SCH (08:15)
[2023-05-26] MEDS: Metoclopramide 10 MG Tab PO SCH ×2 (08:15→10:02)
[2023-05-26] MEDS: Citalopram 20 MG Tab PO SCH (08:15)
[2023-05-26] MEDS: Bacitracin Oint 28.35 GM Tube TOP SCH (08:16)
[2023-05-26] MEDS: Potassium Chloride 10% 20 MEQ/15 ML Soln 15 ML UD Cup PO SCH (08:17)
[2023-05-26] MEDS: Enoxaparin 30 MG/0.3 ML Syringe SUBCUT SCH (08:18)
[2023-05-26] MEDS ORDERED: Silver Nitrate Applicator Each TOP ONE (09:00)
[2023-05-26] MEDS ORDERED: Magnesium Oxide 400 MG Tab PO SCH (09:00)
[2023-05-26 11:24] VITALS: BP 103/68; PULSE 94
[2023-05-26] MEDS ORDERED: Sucralfate Suspension 1 GM/10 ML Cup PO SCH (17:00)
== END 2023-05-26 14:05 | disposition home health service (06) | DRG 252 ==
LOC: JP.MS 08:49 → OBSVTOIN 05-19 08:49
PROVIDERS: ADMIT Student in an Organized Health Care Education/Training Program; ATTEND Hospitalist
PROC: 0DJ08ZZ Inspection of Upper Intestinal Tract, Via Natural or Artificial Opening Endoscopic (ICD-10-PCS; principal; 2023-05-19 11:15)
DX: K94.33 Esophagostomy malfunction (principal); E86.0 Dehydration; F33.2 Major depressive disorder, recurrent severe without psychotic features; F41.1 Generalized anxiety disorder; E87.6 Hypokalemia; E83.42 Hypomagnesemia; L03.113 Cellulitis of right upper limb; R13.10 Dysphagia, unspecified; K29.70 Gastritis, unspecified, without bleeding; H54.7 Unspecified visual loss; I10 Essential (primary) hypertension; K21.9 Gastro-esophageal reflux disease without esophagitis; D64.9 Anemia, unspecified; G89.29 Other chronic pain; K59.00 Constipation, unspecified; Y83.8 Other surgical procedures as the cause of abnormal reaction of the patient, or of later complication, without mention of misadventure at the time of the procedure; Z90.89 Acquired absence of other organs; Z90.49 Acquired absence of other specified parts of digestive tract; Z98.890 Other specified postprocedural states; Z87.442 Personal history of urinary calculi; Z79.899 Other long term (current) drug therapy; Z90.710 Acquired absence of both cervix and uterus; Z90.722 Acquired absence of ovaries, bilateral; Z11.52 Encounter for screening for COVID-19; Z87.891 Personal history of nicotine dependence
CPT/HCPCS: 0241U; 36415; 71046; 71260; 74177; 80048; 80053; 80305-QW; 81001; 82180; 82306; 82525; 82607; 82728; 83550; 83735; 84100; 84134; 84145; 84207; 84255; 84425; 84446; 84590; 84591; 84597; 84630; 85025; 85027; 86140; 93005; 93010; 96361; 96365; 96366; 96367; 96375; 97110-GP; 97161-GP; 99222; 99232; 99238; A9270-GY; G0378; J0690; J1100; J1650; J2250; J2704; J3010; J3411; J3475; J3490; J7030; Q0162; Q9967

== ENCOUNTER 2023-06-02 06:21 | Day surgery (SDC) | payer BC, MEDICAID ==
[2023-06-02] MEDS ORDERED: Cyanocobalamin (Vitamin B12) 1,000 MCG/ML SDV IM ONE (06:45)
[2023-06-02] MEDS ORDERED: Lactated Ringers 1,000 ML IV ONE (07:00)
[2023-06-02] MEDS ORDERED: fentaNYL 50 MCG/ML SDV ONE (07:19)
[2023-06-02] MEDS ORDERED: Midazolam 1 MG/ML 2 ML SDV ONE (07:19)
[2023-06-02] MEDS ORDERED: Propofol 200 MG/20 ML SDV ONE (07:19)
[2023-06-02] MEDS ORDERED: Dexamethasone 4 MG/ML SDV ONE (07:41)
[2023-06-02] MEDS ORDERED: Ondansetron 4 MG/2 ML SDV ONE (07:41)
[2023-06-02] MEDS ORDERED: MVI, Adult with Vitamin K 10 ML, Thiamine 200 MG, Zinc/Copper/Manganese/Selenium 1 ML i... IV ONE ×4 (08:00)
[2023-06-02 10:20] VITALS: BP 102/72; PULSE 93
== END 2023-06-02 10:45 | disposition home or self-care (01) ==
LOC: JP.SDS 06:21
PROVIDERS: ATTEND Surgery
DX: K20.90 Esophagitis, unspecified without bleeding (principal); Z98.84 Bariatric surgery status
CPT/HCPCS: 43239; J1100; J2250; J2405; J2704; J3010; J3411; J3420; J7120; J3490

== ENCOUNTER 2023-06-06 11:24 | Inpatient (IN) | payer MEDICAID ==
[2023-06-06] MEDS ORDERED: Sodium Chloride 0.9% 10 ML Syringe FLUSH PRN (12:20)
[2023-06-06] MEDS ORDERED: Polyethylene Glycol 3350 Powder 17 GM Packet PO PRN (12:20)
[2023-06-06] MEDS ORDERED: Sodium Chloride 0.9% 1,000 ML IV SCH (12:30)
[2023-06-06] MEDS ORDERED: Lidocaine 1% 10 ML MDV INJECT SCH (12:30)
[2023-06-06] MEDS ORDERED: Lidocaine 1% 5 ML VIAL INJECT SCH (12:45)
[2023-06-06] MEDS: Ondansetron 4 MG/2 ML SDV IV PRN ×3 (12:48→21:23)
[2023-06-06] MEDS: Acetaminophen/HYDROcodone 325-10 MG Tab PO PRN ×2 (12:49→18:46)
[2023-06-06 12:50] LABS: BASOPHILS ABSOLUTE AUTO 0.06 K/uL (0.00-0.10); BASOPHILS PERCENT AUTO 0.5 % (0.1-1.3); EOSINOPHILS ABSOLUTE AUTO 0.15 K/uL (0.00-0.40); EOSINOPHILS PERCENT AUTO 1.3 % (0.0-5.4); HEMATOCRIT 33.5 % (34.3-46.0); HEMOGLOBIN 11.2 g/dL (11.2-15.5); IMMATURE GRAN ABSOLUTE AUTO 0.04 K/uL (0.00-0.23); IMMATURE GRAN PERCENT AUTO 0.4 % (0.0-0.7); LYMPHOCYTES ABSOLUTE AUTO 3.17 K/uL (0.8-3.3); LYMPHOCYTES PERCENT AUTO 28.4 % (11.4-47.7); MEAN CORPUSCULAR HEMOGLOBIN 31.5 pg (31.6-35.5); MEAN CORPUSCULAR HGB CONC 33.4 g/dL (31.6-35.5); MEAN CORPUSCULAR VOLUME 94.1 fL (81.4-99.0); MONOCYTES ABSOLUTE AUTO 1.24 K/uL (0.20-0.90); MONOCYTES PERCENT AUTO 11.1 % (3.3-12.6); NEUTROPHILS ABSOLUTE AUTO 6.49 K/uL (1.0-7.6); NEUTROPHILS PERCENT AUTO 58.3 % (40.0-78.1); PLATELET COUNT,PLT 647 K/uL (130-375); RED BLOOD CELL COUNT 3.56 M/uL (3.77-5.24); WHITE BLOOD CELL COUNT,WBC 11.2 K/uL (3.2-11.0)
[2023-06-06 13:48] LABS: A/G RATIO 0.8 (1.2-2.2); ALANINE AMINOTRANSFERASE,ALT 14 U/L (12-78); ALKALINE PHOSPHATASE 82 U/L (46-116); ANION GAP 5.4 mmol/L (5.0-14.0); ASPARTATE AMNIOTRANSFERASE,AST 14 U/L (15-37); BILIRUBIN TOTAL 0.3 mg/dL (0.2-1.0); BLOOD UREA NITROGEN,BUN 23 mg/dL (7-18); CALCIUM 8.8 mg/dL (8.5-10.1); CARBON DIOXIDE,CO2 29 mmol/L (21-32); CHLORIDE,CL 95 mmol/L (100-108); CREATININE 0.6 mg/dL (0.6-1.0); EST CRCL DRUG DOSING (CG) 89.06 mL/min; ESTIMATED GFR 108 mL/min (>60); GLUCOSE RANDOM 99 mg/dL (74-106); PHOSPHORUS 4.2 mg/dL (2.5-4.9); POTASSIUM,K 3.4 mmol/L (3.6-5.2); PROTEIN TOTAL,TP 6.9 g/dL (6.4-8.2); SODIUM,NA 126 mmol/L (140-148)
[2023-06-06 13:49] LABS: C-REACTIVE PROTEIN < 0.50 mg/dL (<0.50)
[2023-06-06] MEDS ORDERED: Hyoscyamine 0.125 MG Tab.SL SL PRN (13:58)
[2023-06-06] MEDS ORDERED: Non-Formulary Medication 1 Each (Bupropion Hcl [Wellbutrin Xl] 300 MG Tab.Er.24h) PO SCH (14:00)
[2023-06-06] MEDS: Enoxaparin 40 MG/0.4 ML Syringe SUBCUT SCH (14:11)
[2023-06-06] MEDS: busPIRone 10 MG Tab PO SCH ×2 (15:02→20:11)
[2023-06-06] MEDS: Gabapentin 100 MG Cap PO SCH ×2 (15:02→20:11)
[2023-06-06] MEDS: Scopalamine 1mg/3day Transdermal Patch TRDERM SCH (15:03)
[2023-06-06] MEDS: LORazepam 0.5 MG Tab PO PRN ×2 (15:16→21:23)
[2023-06-06] MEDS: VERIFY SCOP PATCH SCH (15:17)
[2023-06-06] MEDS: Sucralfate 1 GM Tab PO SCH ×2 (16:04→20:11)
[2023-06-06] MEDS: Pantoprazole 40 MG Tab.CR PO SCH (16:04)
[2023-06-06] MEDS ORDERED: VITAMIN B6 PYRIDOXINE 100 MG PO SCH (17:00)
[2023-06-06] MEDS ORDERED: Non-Formulary Medication 1 Each (Cyanocobalamin (Vitamin B-12) [Vitamin B-12] 1,000 MCG Ta SL SCH (17:00)
[2023-06-06] MEDS: Cyanocobalamin (Vitamin B12) 1,000 MCG Tab SL SCH (17:30)
[2023-06-06] MEDS: Vitamin B6-pyridOXINE 50 MG Tab PO SCH (17:30)
[2023-06-06] MEDS: Potassium Chloride 10% 20 MEQ/15 ML Soln 15 ML UD Cup PO SCH (17:30)
[2023-06-06] MEDS: Acetaminophen 325 MG Tab PO PRN (17:56)
[2023-06-06] MEDS: Potassium Chloride 10 MEQ in Premix Bag 1 BAG IV SCH ×4 (20:16→23:15)
[2023-06-06] MEDS: Zolpidem 5 MG Tab PO PRN (21:23)
[2023-06-06] MEDS: Sodium Chloride 0.9% 1,000 ML IV SCH (23:14)
[2023-06-07] MEDS: Acetaminophen/HYDROcodone 325-10 MG Tab PO PRN ×5 (00:51→23:04)
[2023-06-07] MEDS: Calcium Carbonate 500 MG Tab.Chew PO PRN (00:52)
[2023-06-07] MEDS: Ondansetron 4 MG/2 ML SDV IV PRN ×6 (02:32→23:04)
[2023-06-07] MEDS: LORazepam 0.5 MG Tab PO PRN ×4 (04:37→22:41)
[2023-06-07 05:32] LABS: ANION GAP 10.5 mmol/L (5.0-14.0); CALCIUM 7.9 mg/dL (8.5-10.1); CREATININE 0.5 mg/dL (0.6-1.0); EST CRCL DRUG DOSING (CG) 106.87 mL/min; POTASSIUM,K 4.5 mmol/L (3.6-5.2)
[2023-06-07] MEDS: Potassium Chloride 10% 20 MEQ/15 ML Soln 15 ML UD Cup PO SCH ×2 (07:06→16:14)
[2023-06-07] MEDS: Sucralfate 1 GM Tab PO SCH ×4 (07:06→19:04)
[2023-06-07] MEDS: Pantoprazole 40 MG Tab.CR PO SCH ×2 (07:12→16:14)
[2023-06-07] MEDS: Sodium Chloride 0.9% 1,000 ML IV SCH (07:13)
[2023-06-07] MEDS ORDERED: CHOLECALCIFEROL 1250 MCG PO SCH (09:00)
[2023-06-07] MEDS ORDERED: [UNRECOGNIZED DRUG - OTHER] PO SCH (09:00)
[2023-06-07] MEDS ORDERED: Non-Formulary Medication 1 Each (Magnesium Oxide [Magnesium Oxide] 400 MG Tablet) PO SCH (09:00)
[2023-06-07] MEDS: Citalopram 20 MG Tab PO SCH (09:30)
[2023-06-07] MEDS: busPIRone 10 MG Tab PO SCH ×3 (09:30→20:27)
[2023-06-07] MEDS: Gabapentin 100 MG Cap PO SCH ×3 (09:31→20:27)
[2023-06-07] MEDS: Magnesium Oxide 400 MG Tab PO SCH (09:31)
[2023-06-07] MEDS: Folic Acid 1 MG Tab PO SCH (09:31)
[2023-06-07] MEDS: VERIFY SCOP PATCH SCH (09:32)
[2023-06-07] MEDS ORDERED: Haloperidol Lactate 2 MG/ML Oral Soln 15 ML Bottle PO PRN (12:49)
[2023-06-07] MEDS ORDERED: Haloperidol Lactate 2 MG/ML Oral Soln 15 ML Bottle JTUBE PRN ×2 (12:51→14:51)
[2023-06-07 12:54] LABS: CORONAVIRUS COVID-19 NAA NEGATIVE (NEGATIVE); INFLUENZA A NAA NEGATIVE (NEGATIVE); INFLUENZA B NAA NEGATIVE (NEGATIVE); RESPIRATORY SYNCYTIAL VIR NAA NEGATIVE (NEGATIVE)
[2023-06-07] MEDS: Cholecalciferol (Vitamin D3) 50,000 Unit Cap PO SCH (13:02)
[2023-06-07] MEDS: Enoxaparin 40 MG/0.4 ML Syringe SUBCUT SCH (14:08)
[2023-06-07] MEDS: buPROPion 150 MG Tab.ER PO SCH (14:10)
[2023-06-07] MEDS: Vitamin B6-pyridOXINE 50 MG Tab PO SCH (16:15)
[2023-06-07] MEDS: Cyanocobalamin (Vitamin B12) 1,000 MCG Tab SL SCH (16:15)
[2023-06-07] MEDS: Haloperidol Lactate 2 MG/ML Oral Soln 15 ML Bottle JTUBE PRN ×2 (18:04→22:00)
[2023-06-07] MEDS: Zolpidem 5 MG Tab PO PRN (22:03)
[2023-06-08] MEDS: Haloperidol Lactate 2 MG/ML Oral Soln 15 ML Bottle JTUBE PRN ×6 (02:12→20:22)
[2023-06-08] MEDS: LORazepam 0.5 MG Tab PO PRN ×2 (05:56→12:12)
[2023-06-08] MEDS: Acetaminophen/HYDROcodone 325-10 MG Tab PO PRN ×3 (05:56→18:18)
[2023-06-08] MEDS: Ondansetron 4 MG/2 ML SDV IV PRN ×2 (06:24→10:54)
[2023-06-08] MEDS: Pantoprazole 40 MG Tab.CR PO SCH ×2 (07:49→17:20)
[2023-06-08] MEDS: Sucralfate 1 GM Tab PO SCH ×4 (07:49→20:20)
[2023-06-08] MEDS: Potassium Chloride 10% 20 MEQ/15 ML Soln 15 ML UD Cup PO SCH ×2 (07:50→17:20)
[2023-06-08] MEDS: Cholecalciferol (Vitamin D3) 50,000 Unit Cap PO SCH (09:47)
[2023-06-08] MEDS: busPIRone 10 MG Tab PO SCH ×3 (09:47→20:20)
[2023-06-08] MEDS: Folic Acid 1 MG Tab PO SCH (09:47)
[2023-06-08] MEDS: Gabapentin 100 MG Cap PO SCH ×3 (09:47→20:20)
[2023-06-08] MEDS: Magnesium Oxide 400 MG Tab PO SCH (09:48)
[2023-06-08] MEDS: Citalopram 20 MG Tab PO SCH (09:48)
[2023-06-08] MEDS: VERIFY SCOP PATCH SCH (09:50)
[2023-06-08] MEDS ORDERED: Haloperidol Lactate 2 MG/ML Oral Soln 15 ML Bottle JTUBE PRN (12:50)
[2023-06-08] MEDS: Enoxaparin 40 MG/0.4 ML Syringe SUBCUT SCH (13:53)
[2023-06-08] MEDS: buPROPion 150 MG Tab.ER PO SCH (13:55)
[2023-06-08] MEDS: Vitamin B6-pyridOXINE 50 MG Tab PO SCH (17:21)
[2023-06-08] MEDS: Cyanocobalamin (Vitamin B12) 1,000 MCG Tab SL SCH (17:21)
[2023-06-08] MEDS: LORazepam 1 MG Tab PO PRN (18:18)
[2023-06-08] MEDS: Zolpidem 5 MG Tab PO PRN (23:02)
[2023-06-09] MEDS: LORazepam 1 MG Tab PO PRN ×4 (03:02→21:01)
[2023-06-09] MEDS: Acetaminophen/HYDROcodone 325-10 MG Tab PO PRN ×4 (03:02→21:02)
[2023-06-09] MEDS: Haloperidol Lactate 2 MG/ML Oral Soln 15 ML Bottle JTUBE PRN ×6 (03:03→22:41)
[2023-06-09] MEDS: Pantoprazole 40 MG Tab.CR PO SCH ×2 (07:40→16:26)
[2023-06-09] MEDS: Sucralfate 1 GM Tab PO SCH ×4 (07:40→19:46)
[2023-06-09] MEDS: Potassium Chloride 10% 20 MEQ/15 ML Soln 15 ML UD Cup PO SCH ×2 (07:41→16:26)
[2023-06-09] MEDS: Gabapentin 100 MG Cap PO SCH ×3 (09:18→21:02)
[2023-06-09] MEDS: busPIRone 10 MG Tab PO SCH ×3 (09:19→21:01)
[2023-06-09] MEDS: Cholecalciferol (Vitamin D3) 50,000 Unit Cap PO SCH (09:19)
[2023-06-09] MEDS: Citalopram 20 MG Tab PO SCH (09:19)
[2023-06-09] MEDS: Folic Acid 1 MG Tab PO SCH (09:19)
[2023-06-09] MEDS: Magnesium Oxide 400 MG Tab PO SCH (09:20)
[2023-06-09] MEDS: VERIFY SCOP PATCH SCH (09:20)
[2023-06-09] MEDS ORDERED: Polyethylene Glycol 3350 Powder 17 GM Packet JTUBE ONE (10:45)
[2023-06-09] MEDS: Enoxaparin 40 MG/0.4 ML Syringe SUBCUT SCH (13:40)
[2023-06-09] MEDS: Scopalamine 1mg/3day Transdermal Patch TRDERM SCH (13:41)
[2023-06-09] MEDS: buPROPion 150 MG Tab.ER PO SCH (13:41)
[2023-06-09] MEDS: Cyanocobalamin (Vitamin B12) 1,000 MCG Tab SL SCH (16:26)
[2023-06-09] MEDS: Vitamin B6-pyridOXINE 50 MG Tab PO SCH (16:27)
[2023-06-09] MEDS: Zolpidem 5 MG Tab PO PRN (21:05)
[2023-06-10] MEDS: Acetaminophen/HYDROcodone 325-10 MG Tab PO PRN ×3 (07:04→19:06)
[2023-06-10] MEDS: LORazepam 1 MG Tab PO PRN ×3 (07:04→19:07)
[2023-06-10] MEDS: Haloperidol Lactate 2 MG/ML Oral Soln 15 ML Bottle JTUBE PRN ×5 (07:05→21:01)
[2023-06-10] MEDS: Sucralfate 1 GM Tab PO SCH ×4 (07:05→21:03)
[2023-06-10] MEDS: Pantoprazole 40 MG Tab.CR PO SCH ×2 (07:06→17:17)
[2023-06-10] MEDS: Potassium Chloride 10% 20 MEQ/15 ML Soln 15 ML UD Cup PO SCH ×2 (07:07→17:17)
[2023-06-10] MEDS: Gabapentin 100 MG Cap PO SCH ×3 (09:03→21:04)
[2023-06-10] MEDS: Cholecalciferol (Vitamin D3) 50,000 Unit Cap PO SCH (09:03)
[2023-06-10] MEDS: busPIRone 10 MG Tab PO SCH ×3 (09:03→21:03)
[2023-06-10] MEDS: Magnesium Oxide 400 MG Tab PO SCH (09:03)
[2023-06-10] MEDS: Folic Acid 1 MG Tab PO SCH (09:03)
[2023-06-10] MEDS: VERIFY SCOP PATCH SCH (09:04)
[2023-06-10] MEDS: Citalopram 20 MG Tab PO SCH (09:04)
[2023-06-10] MEDS: Enoxaparin 40 MG/0.4 ML Syringe SUBCUT SCH (13:21)
[2023-06-10] MEDS: buPROPion 150 MG Tab.ER PO SCH (14:42)
[2023-06-10] MEDS: Cyanocobalamin (Vitamin B12) 1,000 MCG Tab SL SCH (17:17)
[2023-06-10] MEDS: Vitamin B6-pyridOXINE 50 MG Tab PO SCH (17:17)
[2023-06-10] MEDS: Zolpidem 5 MG Tab PO PRN (21:03)
[2023-06-11] MEDS: LORazepam 1 MG Tab PO PRN ×4 (01:28→21:03)
[2023-06-11] MEDS: Haloperidol Lactate 2 MG/ML Oral Soln 15 ML Bottle JTUBE PRN ×2 (01:28→07:52)
[2023-06-11] MEDS: Acetaminophen/HYDROcodone 325-10 MG Tab PO PRN ×4 (01:29→21:03)
[2023-06-11] MEDS: Pantoprazole 40 MG Tab.CR PO SCH ×2 (07:45→16:39)
[2023-06-11] MEDS: Sucralfate 1 GM Tab PO SCH ×4 (07:45→21:03)
[2023-06-11] MEDS: Potassium Chloride 10% 20 MEQ/15 ML Soln 15 ML UD Cup PO SCH ×2 (07:46→16:39)
[2023-06-11] MEDS: Citalopram 20 MG Tab PO SCH (08:58)
[2023-06-11] MEDS: busPIRone 10 MG Tab PO SCH ×3 (08:58→21:04)
[2023-06-11] MEDS: Cholecalciferol (Vitamin D3) 50,000 Unit Cap PO SCH (08:58)
[2023-06-11] MEDS: Magnesium Oxide 400 MG Tab PO SCH (08:58)
[2023-06-11] MEDS: Gabapentin 100 MG Cap PO SCH ×3 (08:58→21:04)
[2023-06-11] MEDS: Folic Acid 1 MG Tab PO SCH (08:59)
[2023-06-11] MEDS: VERIFY SCOP PATCH SCH (09:00)
[2023-06-11] MEDS: Promethazine 25 MG Tab PO PRN ×2 (10:04→16:00)
[2023-06-11] MEDS: Enoxaparin 40 MG/0.4 ML Syringe SUBCUT SCH (14:57)
[2023-06-11] MEDS: buPROPion 150 MG Tab.ER PO SCH (14:57)
[2023-06-11] MEDS: Cyanocobalamin (Vitamin B12) 1,000 MCG Tab SL SCH (16:40)
[2023-06-11] MEDS: Vitamin B6-pyridOXINE 50 MG Tab PO SCH (16:40)
[2023-06-11] MEDS: Hyoscyamine 0.125 MG Tab.SL SL PRN (16:47)
[2023-06-11] MEDS: Zolpidem 5 MG Tab PO PRN (21:03)
[2023-06-12] MEDS: Acetaminophen/HYDROcodone 325-10 MG Tab PO PRN ×4 (03:47→23:39)
[2023-06-12] MEDS: Promethazine 25 MG Tab PO PRN ×2 (03:47→10:09)
[2023-06-12] MEDS: LORazepam 1 MG Tab PO PRN ×4 (03:47→23:38)
[2023-06-12] MEDS: Hyoscyamine 0.125 MG Tab.SL SL PRN ×2 (08:11→12:07)
[2023-06-12] MEDS: Sucralfate 1 GM Tab PO SCH ×4 (08:12→20:13)
[2023-06-12] MEDS: busPIRone 10 MG Tab PO SCH ×3 (08:13→20:14)
[2023-06-12] MEDS: Pantoprazole 40 MG Tab.CR PO SCH ×2 (08:13→17:23)
[2023-06-12] MEDS: Potassium Chloride 10% 20 MEQ/15 ML Soln 15 ML UD Cup PO SCH ×2 (08:13→17:23)
[2023-06-12] MEDS: Folic Acid 1 MG Tab PO SCH (08:13)
[2023-06-12] MEDS: Citalopram 20 MG Tab PO SCH (08:13)
[2023-06-12] MEDS: Gabapentin 100 MG Cap PO SCH ×3 (08:14→20:13)
[2023-06-12] MEDS: Magnesium Oxide 400 MG Tab PO SCH (08:14)
[2023-06-12] MEDS: Cholecalciferol (Vitamin D3) 50,000 Unit Cap PO SCH (08:14)
[2023-06-12] MEDS: VERIFY SCOP PATCH SCH (10:58)
[2023-06-12] MEDS ORDERED: Hyoscyamine 0.125 MG Tab.SL SL PRN (12:14)
[2023-06-12] MEDS: Enoxaparin 40 MG/0.4 ML Syringe SUBCUT SCH (14:09)
[2023-06-12] MEDS: buPROPion 150 MG Tab.ER PO SCH (14:12)
[2023-06-12] MEDS: Scopalamine 1mg/3day Transdermal Patch TRDERM SCH (14:12)
[2023-06-12] MEDS: Haloperidol Lactate 2 MG/ML Oral Soln 15 ML Bottle JTUBE PRN ×2 (14:22→20:22)
[2023-06-12] MEDS: Cyanocobalamin (Vitamin B12) 1,000 MCG Tab SL SCH (17:23)
[2023-06-12] MEDS: Vitamin B6-pyridOXINE 50 MG Tab PO SCH (17:24)
[2023-06-12] MEDS: Zolpidem 5 MG Tab PO PRN (21:34)
[2023-06-13] MEDS: Haloperidol Lactate 2 MG/ML Oral Soln 15 ML Bottle JTUBE PRN ×4 (00:28→21:41)
[2023-06-13] MEDS: Acetaminophen/HYDROcodone 325-10 MG Tab PO PRN ×3 (05:34→18:11)
[2023-06-13] MEDS: LORazepam 1 MG Tab PO PRN ×3 (05:35→18:10)
[2023-06-13 05:58] LABS: HEMATOCRIT 34.3 % (34.3-46.0); HEMOGLOBIN 11.1 g/dL (11.2-15.5); MEAN CORPUSCULAR HEMOGLOBIN 31.8 pg (31.6-35.5); MEAN CORPUSCULAR HGB CONC 32.4 g/dL (31.6-35.5); MEAN CORPUSCULAR VOLUME 98.3 fL (81.4-99.0); RED BLOOD CELL COUNT 3.49 M/uL (3.77-5.24)
[2023-06-13 06:17] LABS: A/G RATIO 0.8 (1.2-2.2); ALANINE AMINOTRANSFERASE,ALT 13 U/L (12-78); ALBUMIN 2.8 g/dL (3.4-5.0); ALKALINE PHOSPHATASE 75 U/L (46-116); ANION GAP 10.2 mmol/L (5.0-14.0); ASPARTATE AMNIOTRANSFERASE,AST 11 U/L (15-37); BILIRUBIN TOTAL 0.2 mg/dL (0.2-1.0); BLOOD UREA NITROGEN,BUN 20 mg/dL (7-18); CALCIUM 8.9 mg/dL (8.5-10.1); CARBON DIOXIDE,CO2 31 mmol/L (21-32); CHLORIDE,CL 101 mmol/L (100-108); CREATININE 0.7 mg/dL (0.6-1.0); EST CRCL DRUG DOSING (CG) 75.53 mL/min; ESTIMATED GFR 104 mL/min (>60); GLUCOSE RANDOM 124 mg/dL (74-106); POTASSIUM,K 4.2 mmol/L (3.6-5.2); PROTEIN TOTAL,TP 6.5 g/dL (6.4-8.2); SODIUM,NA 138 mmol/L (140-148)
[2023-06-13] MEDS: Sucralfate 1 GM Tab PO SCH ×4 (08:17→20:12)
[2023-06-13] MEDS: Potassium Chloride 10% 20 MEQ/15 ML Soln 15 ML UD Cup PO SCH ×2 (08:19→16:43)
[2023-06-13] MEDS: Pantoprazole 40 MG Tab.CR PO SCH ×2 (08:19→16:45)
[2023-06-13] MEDS: Citalopram 10 MG Tab PO SCH (08:20)
[2023-06-13] MEDS: Magnesium Oxide 400 MG Tab PO SCH (08:20)
[2023-06-13] MEDS: Folic Acid 1 MG Tab PO SCH (08:20)
[2023-06-13] MEDS: Gabapentin 100 MG Cap PO SCH ×3 (08:20→20:13)
[2023-06-13] MEDS: Cholecalciferol (Vitamin D3) 50,000 Unit Cap PO SCH (08:21)
[2023-06-13] MEDS: busPIRone 10 MG Tab PO SCH ×3 (08:26→20:13)
[2023-06-13] MEDS: VERIFY SCOP PATCH SCH (08:26)
[2023-06-13] MEDS: Bacitracin Oint 28.35 GM Tube TOP SCH ×2 (14:45→20:12)
[2023-06-13] MEDS: Enoxaparin 40 MG/0.4 ML Syringe SUBCUT SCH (14:45)
[2023-06-13] MEDS: buPROPion 150 MG Tab.ER PO SCH (14:47)
[2023-06-13] MEDS: Vitamin B6-pyridOXINE 50 MG Tab PO SCH (16:42)
[2023-06-13] MEDS: Cyanocobalamin (Vitamin B12) 1,000 MCG Tab SL SCH (16:44)
[2023-06-13] MEDS: Hyoscyamine 0.125 MG Tab.SL SL SCH (16:45)
[2023-06-13] MEDS: Zolpidem 5 MG Tab PO PRN (21:41)
[2023-06-14] MEDS: LORazepam 1 MG Tab PO PRN ×4 (00:09→20:46)
[2023-06-14] MEDS: Acetaminophen/HYDROcodone 325-10 MG Tab PO PRN ×4 (00:09→20:45)
[2023-06-14] MEDS: Haloperidol Lactate 2 MG/ML Oral Soln 15 ML Bottle JTUBE PRN ×4 (03:14→20:47)
[2023-06-14] MEDS: Calcium Carbonate 500 MG Tab.Chew PO PRN (03:14)
[2023-06-14] MEDS: Sucralfate 1 GM Tab PO SCH ×4 (07:46→20:45)
[2023-06-14] MEDS: Hyoscyamine 0.125 MG Tab.SL SL SCH ×3 (07:46→16:30)
[2023-06-14] MEDS: Potassium Chloride 10% 20 MEQ/15 ML Soln 15 ML UD Cup PO SCH ×2 (07:47→16:29)
[2023-06-14] MEDS: Pantoprazole 40 MG Tab.CR PO SCH ×2 (07:47→16:30)
[2023-06-14] MEDS: Bacitracin Oint 28.35 GM Tube TOP SCH ×3 (09:08→20:45)
[2023-06-14] MEDS: Citalopram 10 MG Tab PO SCH (09:08)
[2023-06-14] MEDS: Cholecalciferol (Vitamin D3) 50,000 Unit Cap PO SCH (09:08)
[2023-06-14] MEDS: Gabapentin 100 MG Cap PO SCH ×3 (09:08→20:45)
[2023-06-14] MEDS: Magnesium Oxide 400 MG Tab PO SCH (09:08)
[2023-06-14] MEDS: Folic Acid 1 MG Tab PO SCH (09:08)
[2023-06-14] MEDS: busPIRone 10 MG Tab PO SCH ×3 (09:08→20:45)
[2023-06-14] MEDS: VERIFY SCOP PATCH SCH (09:10)
[2023-06-14] MEDS: buPROPion 150 MG Tab.ER PO SCH (14:29)
[2023-06-14] MEDS: Enoxaparin 40 MG/0.4 ML Syringe SUBCUT SCH (14:29)
[2023-06-14] MEDS: Vitamin B6-pyridOXINE 50 MG Tab PO SCH (16:31)
[2023-06-14] MEDS: Cyanocobalamin (Vitamin B12) 1,000 MCG Tab SL SCH (16:32)
[2023-06-14] MEDS: Zolpidem 5 MG Tab PO PRN (20:46)
[2023-06-14] MEDS: Acetaminophen 325 MG Tab PO PRN (21:01)
[2023-06-15] MEDS: LORazepam 1 MG Tab PO PRN ×4 (02:35→21:08)
[2023-06-15] MEDS: Haloperidol Lactate 2 MG/ML Oral Soln 15 ML Bottle JTUBE PRN ×4 (02:36→19:10)
[2023-06-15] MEDS: Acetaminophen/HYDROcodone 325-10 MG Tab PO PRN ×4 (02:36→21:08)
[2023-06-15] MEDS: Pantoprazole 40 MG Tab.CR PO SCH ×2 (08:13→16:07)
[2023-06-15] MEDS: Sucralfate 1 GM Tab PO SCH ×4 (08:13→21:09)
[2023-06-15] MEDS: Hyoscyamine 0.125 MG Tab.SL SL SCH ×3 (08:13→16:06)
[2023-06-15] MEDS: Folic Acid 1 MG Tab PO SCH (09:19)
[2023-06-15] MEDS: busPIRone 10 MG Tab PO SCH ×3 (09:19→21:10)
[2023-06-15] MEDS: Citalopram 10 MG Tab PO SCH (09:19)
[2023-06-15] MEDS: Cholecalciferol (Vitamin D3) 50,000 Unit Cap PO SCH (09:19)
[2023-06-15] MEDS: Gabapentin 100 MG Cap PO SCH ×3 (09:19→21:10)
[2023-06-15] MEDS: Magnesium Oxide 400 MG Tab PO SCH (09:19)
[2023-06-15] MEDS: Bacitracin Oint 28.35 GM Tube TOP SCH ×3 (09:20→21:10)
[2023-06-15] MEDS: Potassium Chloride 10% 20 MEQ/15 ML Soln 15 ML UD Cup PO SCH ×2 (09:20→16:06)
[2023-06-15] MEDS: VERIFY SCOP PATCH SCH (09:24)
[2023-06-15] MEDS: Enoxaparin 40 MG/0.4 ML Syringe SUBCUT SCH (14:50)
[2023-06-15] MEDS: buPROPion 150 MG Tab.ER PO SCH (14:51)
[2023-06-15] MEDS: Scopalamine 1mg/3day Transdermal Patch TRDERM SCH (14:51)
[2023-06-15] MEDS: Cyanocobalamin (Vitamin B12) 1,000 MCG Tab SL SCH (16:07)
[2023-06-15] MEDS: Vitamin B6-pyridOXINE 50 MG Tab PO SCH (16:07)
[2023-06-15] MEDS: Zolpidem 5 MG Tab PO PRN (21:15)
[2023-06-16] MEDS: LORazepam 1 MG Tab PO PRN ×4 (03:10→20:10)
[2023-06-16] MEDS: Haloperidol Lactate 2 MG/ML Oral Soln 15 ML Bottle JTUBE PRN ×4 (03:10→22:07)
[2023-06-16] MEDS: Acetaminophen/HYDROcodone 325-10 MG Tab PO PRN ×4 (03:10→22:07)
[2023-06-16 06:34] LABS: HEMATOCRIT 29.8 % (34.3-46.0); HEMOGLOBIN 9.7 g/dL (11.2-15.5); MEAN CORPUSCULAR HEMOGLOBIN 31.8 pg (31.6-35.5); MEAN CORPUSCULAR HGB CONC 32.6 g/dL (31.6-35.5); MEAN CORPUSCULAR VOLUME 97.7 fL (81.4-99.0); RED BLOOD CELL COUNT 3.05 M/uL (3.77-5.24); WHITE BLOOD CELL COUNT,WBC 11.4 K/uL (3.2-11.0)
[2023-06-16 06:52] LABS: A/G RATIO 0.7 (1.2-2.2); ALANINE AMINOTRANSFERASE,ALT 13 U/L (12-78); ALBUMIN 2.4 g/dL (3.4-5.0); ALKALINE PHOSPHATASE 68 U/L (46-116); ASPARTATE AMNIOTRANSFERASE,AST 9 U/L (15-37); BILIRUBIN TOTAL 0.2 mg/dL (0.2-1.0); BLOOD UREA NITROGEN,BUN 15 mg/dL (7-18); C-REACTIVE PROTEIN 3.33 mg/dL (<0.50); CALCIUM 8.4 mg/dL (8.5-10.1); CARBON DIOXIDE,CO2 31 mmol/L (21-32); CHLORIDE,CL 99 mmol/L (100-108); CREATININE 0.6 mg/dL (0.6-1.0); EST CRCL DRUG DOSING (CG) 90.08 mL/min; ESTIMATED GFR 108 mL/min (>60); GLUCOSE RANDOM 111 mg/dL (74-106); PROTEIN TOTAL,TP 5.9 g/dL (6.4-8.2); SODIUM,NA 137 mmol/L (140-148)
[2023-06-16] MEDS: Hyoscyamine 0.125 MG Tab.SL SL SCH ×3 (07:42→16:00)
[2023-06-16] MEDS: Sucralfate 1 GM Tab PO SCH ×2 (07:42→11:32)
[2023-06-16] MEDS: Pantoprazole 40 MG Tab.CR PO SCH (07:42)
[2023-06-16] MEDS: Bacitracin Oint 28.35 GM Tube TOP SCH ×4 (07:48→20:11)
[2023-06-16] MEDS: Potassium Chloride 10% 20 MEQ/15 ML Soln 15 ML UD Cup PO SCH (08:32)
[2023-06-16] MEDS: Magnesium Oxide 400 MG Tab PO SCH (09:35)
[2023-06-16] MEDS: Cholecalciferol (Vitamin D3) 50,000 Unit Cap PO SCH (09:35)
[2023-06-16] MEDS: Gabapentin 100 MG Cap PO SCH ×2 (09:35→13:32)
[2023-06-16] MEDS: Folic Acid 1 MG Tab PO SCH (09:35)
[2023-06-16] MEDS: busPIRone 10 MG Tab PO SCH ×2 (09:35→13:32)
[2023-06-16] MEDS: Citalopram 10 MG Tab PO SCH (09:35)
[2023-06-16] MEDS: VERIFY SCOP PATCH SCH (09:38)
[2023-06-16] MEDS: Enoxaparin 40 MG/0.4 ML Syringe SUBCUT SCH (13:32)
[2023-06-16] MEDS: buPROPion 150 MG Tab.ER PO SCH (13:33)
[2023-06-16] MEDS: Cyanocobalamin (Vitamin B12) 1,000 MCG Tab SL SCH (16:00)
[2023-06-16] MEDS: Zolpidem 5 MG Tab PO PRN (22:07)
[2023-06-17] MEDS: LORazepam 1 MG Tab PO PRN ×6 (00:10→21:22)
[2023-06-17] MEDS: Haloperidol Lactate 2 MG/ML Oral Soln 15 ML Bottle JTUBE PRN ×5 (02:09→21:23)
[2023-06-17] MEDS: Acetaminophen/HYDROcodone 325-10 MG Tab PO PRN ×3 (04:09→17:02)
[2023-06-17] MEDS: Hyoscyamine 0.125 MG Tab.SL SL SCH ×3 (07:46→17:02)
[2023-06-17] MEDS: Citalopram 10 MG Tab PO SCH (08:15)
[2023-06-17] MEDS: Multivitamins with Iron Tab.Chew CHEW SCH (08:15)
[2023-06-17] MEDS: VERIFY SCOP PATCH SCH (08:15)
[2023-06-17] MEDS: Vitamin B Complex Tab PO SCH (08:16)
[2023-06-17] MEDS: Potassium Chloride 10% 20 MEQ/15 ML Soln 15 ML UD Cup PO SCH (08:21)
[2023-06-17] MEDS: Bacitracin Oint 28.35 GM Tube TOP SCH ×3 (08:29→20:27)
[2023-06-17] MEDS: Enoxaparin 40 MG/0.4 ML Syringe SUBCUT SCH (14:31)
[2023-06-17] MEDS: buPROPion 150 MG Tab.ER PO SCH (14:32)
[2023-06-17] MEDS: Cyanocobalamin (Vitamin B12) 1,000 MCG Tab SL SCH (17:01)
[2023-06-17] MEDS: Zolpidem 5 MG Tab PO PRN (21:21)
[2023-06-18] MEDS: Acetaminophen/HYDROcodone 325-10 MG Tab PO PRN ×4 (00:41→18:08)
[2023-06-18] MEDS: LORazepam 1 MG Tab PO PRN ×6 (01:24→22:06)
[2023-06-18] MEDS: Haloperidol Lactate 2 MG/ML Oral Soln 15 ML Bottle JTUBE PRN ×2 (01:25→06:09)
[2023-06-18 04:32] LABS: HEMATOCRIT 30.7 % (34.3-46.0); HEMOGLOBIN 9.9 g/dL (11.2-15.5); MEAN CORPUSCULAR HEMOGLOBIN 31.2 pg (31.6-35.5); MEAN CORPUSCULAR HGB CONC 32.2 g/dL (31.6-35.5); MEAN CORPUSCULAR VOLUME 96.8 fL (81.4-99.0); RED BLOOD CELL COUNT 3.17 M/uL (3.77-5.24); WHITE BLOOD CELL COUNT,WBC 7.7 K/uL (3.2-11.0)
[2023-06-18 04:50] LABS: C-REACTIVE PROTEIN 5.09 mg/dL (<0.50); CALCIUM 8.7 mg/dL (8.5-10.1); CREATININE 0.6 mg/dL (0.6-1.0); EST CRCL DRUG DOSING (CG) 90.63 mL/min; POTASSIUM,K 4.5 mmol/L (3.6-5.2)
[2023-06-18 05:11] LABS: ANION GAP 11.5 mmol/L (5.0-14.0)
[2023-06-18] MEDS: Hyoscyamine 0.125 MG Tab.SL SL SCH ×3 (07:14→16:16)
[2023-06-18] MEDS: Citalopram 10 MG Tab PO SCH (09:11)
[2023-06-18] MEDS: Bacitracin Oint 28.35 GM Tube TOP SCH ×3 (09:11→20:22)
[2023-06-18] MEDS: Potassium Chloride 10% 20 MEQ/15 ML Soln 15 ML UD Cup PO SCH ×2 (09:12→10:11)
[2023-06-18] MEDS: VERIFY SCOP PATCH SCH (09:12)
[2023-06-18] MEDS: Multivitamins with Iron Tab.Chew CHEW SCH (09:12)
[2023-06-18] MEDS: Vitamin B Complex Tab PO SCH (09:12)
[2023-06-18] MEDS: HYDROmorphone 0.5 MG/0.5 ML Syringe IVPUSH PRN ×3 (11:37→20:22)
[2023-06-18] MEDS: Haloperidol Lactate 2 MG/ML Oral Soln 15 ML Bottle PO PRN ×3 (12:42→22:06)
[2023-06-18] MEDS: buPROPion 150 MG Tab.ER PO SCH (14:07)
[2023-06-18] MEDS: Scopalamine 1mg/3day Transdermal Patch TRDERM SCH (14:07)
[2023-06-18] MEDS: Cyanocobalamin (Vitamin B12) 1,000 MCG Tab SL SCH (16:16)
[2023-06-18] MEDS: Zolpidem 5 MG Tab PO PRN (22:06)
[2023-06-19] MEDS: HYDROmorphone 0.5 MG/0.5 ML Syringe IVPUSH PRN ×4 (02:19→15:04)
[2023-06-19] MEDS: LORazepam 1 MG Tab PO PRN ×6 (02:19→23:58)
[2023-06-19 05:35] LABS: HEMATOCRIT 31.3 % (34.3-46.0); HEMOGLOBIN 10.2 g/dL (11.2-15.5); MEAN CORPUSCULAR HEMOGLOBIN 31.6 pg (31.6-35.5); MEAN CORPUSCULAR HGB CONC 32.6 g/dL (31.6-35.5); MEAN CORPUSCULAR VOLUME 96.9 fL (81.4-99.0); RED BLOOD CELL COUNT 3.23 M/uL (3.77-5.24); WHITE BLOOD CELL COUNT,WBC 9.5 K/uL (3.2-11.0)
[2023-06-19 05:55] LABS: A/G RATIO 0.7 (1.2-2.2); ALANINE AMINOTRANSFERASE,ALT 14 U/L (12-78); ALBUMIN 2.5 g/dL (3.4-5.0); ALKALINE PHOSPHATASE 66 U/L (46-116); ASPARTATE AMNIOTRANSFERASE,AST 9 U/L (15-37); BILIRUBIN TOTAL 0.2 mg/dL (0.2-1.0); BLOOD UREA NITROGEN,BUN 12 mg/dL (7-18); CALCIUM 8.8 mg/dL (8.5-10.1); CARBON DIOXIDE,CO2 33 mmol/L (21-32); CHLORIDE,CL 99 mmol/L (100-108); CREATININE 0.6 mg/dL (0.6-1.0); EST CRCL DRUG DOSING (CG) 90.32 mL/min; ESTIMATED GFR 108 mL/min (>60); GLUCOSE RANDOM 104 mg/dL (74-106); MAGNESIUM 1.6 mg/dL (1.8-2.4); POTASSIUM,K 4.1 mmol/L (3.6-5.2); PROTEIN TOTAL,TP 6.3 g/dL (6.4-8.2); SODIUM,NA 139 mmol/L (140-148)
[2023-06-19 05:57] LABS: ANION GAP 11.1 mmol/L (5.0-14.0)
[2023-06-19] MEDS: Hyoscyamine 0.125 MG Tab.SL SL SCH ×3 (07:56→16:46)
[2023-06-19] MEDS: VERIFY SCOP PATCH SCH (08:27)
[2023-06-19] MEDS: Potassium Chloride 10% 20 MEQ/15 ML Soln 15 ML UD Cup PO SCH (08:28)
[2023-06-19] MEDS: Multivitamins with Iron Tab.Chew CHEW SCH (09:16)
[2023-06-19] MEDS: Vitamin B Complex Tab PO SCH (09:17)
[2023-06-19] MEDS: Bacitracin Oint 28.35 GM Tube TOP SCH ×3 (09:17→21:44)
[2023-06-19] MEDS ORDERED: Magnesium Sulfate/Water 2 GM in Premix Bag 1 BAG IV ONE ×2 (14:00→20:00)
[2023-06-19] MEDS: buPROPion 150 MG Tab.ER PO SCH (14:07)
[2023-06-19] MEDS: Haloperidol Lactate 2 MG/ML Oral Soln 15 ML Bottle PO PRN ×3 (14:10→23:58)
[2023-06-19] MEDS: Cyanocobalamin (Vitamin B12) 1,000 MCG Tab SL SCH (16:46)
[2023-06-19] MEDS: Acetaminophen/HYDROcodone 325-10 MG Tab PO PRN (19:32)
[2023-06-19] MEDS: Zolpidem 5 MG Tab PO PRN (21:43)
[2023-06-20] MEDS: Acetaminophen/HYDROcodone 325-10 MG Tab PO PRN ×4 (04:04→21:25)
[2023-06-20] MEDS: Haloperidol Lactate 2 MG/ML Oral Soln 15 ML Bottle PO PRN ×4 (04:07→17:15)
[2023-06-20] MEDS: LORazepam 1 MG Tab PO PRN ×5 (04:08→21:25)
[2023-06-20 05:56] LABS: HEMATOCRIT 29.9 % (34.3-46.0); HEMOGLOBIN 9.8 g/dL (11.2-15.5); MEAN CORPUSCULAR HEMOGLOBIN 31.1 pg (31.6-35.5); MEAN CORPUSCULAR HGB CONC 32.8 g/dL (31.6-35.5); MEAN CORPUSCULAR VOLUME 94.9 fL (81.4-99.0); RED BLOOD CELL COUNT 3.15 M/uL (3.77-5.24); WHITE BLOOD CELL COUNT,WBC 6.7 K/uL (3.2-11.0)
[2023-06-20 06:23] LABS: A/G RATIO 0.6 (1.2-2.2); ALANINE AMINOTRANSFERASE,ALT 15 U/L (12-78); ALBUMIN 2.5 g/dL (3.4-5.0); ALKALINE PHOSPHATASE 64 U/L (46-116); ASPARTATE AMNIOTRANSFERASE,AST 11 U/L (15-37); BILIRUBIN TOTAL 0.2 mg/dL (0.2-1.0); BLOOD UREA NITROGEN,BUN 13 mg/dL (7-18); CALCIUM 8.8 mg/dL (8.5-10.1); CARBON DIOXIDE,CO2 30 mmol/L (21-32); CHLORIDE,CL 100 mmol/L (100-108); CREATININE 0.6 mg/dL (0.6-1.0); EST CRCL DRUG DOSING (CG) 87.02 mL/min; ESTIMATED GFR 108 mL/min (>60); GLUCOSE RANDOM 110 mg/dL (74-106); MAGNESIUM 1.8 mg/dL (1.8-2.4); POTASSIUM,K 3.6 mmol/L (3.6-5.2); PROTEIN TOTAL,TP 6.4 g/dL (6.4-8.2); SODIUM,NA 138 mmol/L (140-148)
[2023-06-20 06:24] LABS: ANION GAP 11.6 mmol/L (5.0-14.0)
[2023-06-20] MEDS ORDERED: Propofol 200 MG/20 ML SDV ONE (07:50)
[2023-06-20] MEDS ORDERED: fentaNYL 100 MCG/2 ML SDV ONE (07:50)
[2023-06-20] MEDS: Hyoscyamine 0.125 MG Tab.SL SL SCH ×3 (08:08→17:14)
[2023-06-20] MEDS ORDERED: Lidocaine 1% 2 ML ONE (08:45)
[2023-06-20] MEDS ORDERED: Lactated Ringers 1,000 ML ONE (08:55)
[2023-06-20] MEDS: Bacitracin Oint 28.35 GM Tube TOP SCH ×3 (09:48→21:21)
[2023-06-20] MEDS: Multivitamins with Iron Tab.Chew CHEW SCH (09:48)
[2023-06-20] MEDS: VERIFY SCOP PATCH SCH (09:49)
[2023-06-20] MEDS: Vitamin B Complex Tab PO SCH (09:49)
[2023-06-20] MEDS: Potassium Chloride 10% 20 MEQ/15 ML Soln 15 ML UD Cup PO SCH (09:49)
[2023-06-20] MEDS: buPROPion 150 MG Tab.ER PO SCH (13:59)
[2023-06-20] MEDS: Cyanocobalamin (Vitamin B12) 1,000 MCG Tab SL SCH (17:15)
[2023-06-20] MEDS: Zolpidem 5 MG Tab PO PRN (21:25)
[2023-06-21] MEDS: LORazepam 1 MG Tab PO PRN ×2 (01:26→05:45)
[2023-06-21] MEDS: Acetaminophen/HYDROcodone 325-10 MG Tab PO PRN ×2 (01:26→05:45)
[2023-06-21] MEDS: Haloperidol Lactate 2 MG/ML Oral Soln 15 ML Bottle PO PRN ×2 (01:26→05:45)
[2023-06-21 05:46] LABS: HEMATOCRIT 29.1 % (34.3-46.0); HEMOGLOBIN 9.4 g/dL (11.2-15.5); MEAN CORPUSCULAR HEMOGLOBIN 31.3 pg (31.6-35.5); MEAN CORPUSCULAR HGB CONC 32.3 g/dL (31.6-35.5); WHITE BLOOD CELL COUNT,WBC 9.3 K/uL (3.2-11.0)
[2023-06-21] MEDS ORDERED: Sodium Chloride 0.9% 1,000 ML IV ONE (05:56)
[2023-06-21] MEDS ORDERED: Haloperidol Lactate 2 MG/ML Oral Soln 15 ML Bottle PO PRN ×2 (06:00→07:29)
[2023-06-21] MEDS ORDERED: Acetaminophen/HYDROcodone 325-10 MG Tab PO PRN (06:00)
[2023-06-21] MEDS ORDERED: LORazepam 1 MG Tab PO PRN (06:00)
[2023-06-21 06:09] LABS: A/G RATIO 0.7 (1.2-2.2); ALANINE AMINOTRANSFERASE,ALT 13 U/L (12-78); ALBUMIN 2.4 g/dL (3.4-5.0); ALKALINE PHOSPHATASE 68 U/L (46-116); ASPARTATE AMNIOTRANSFERASE,AST 9 U/L (15-37); BLOOD UREA NITROGEN,BUN 17 mg/dL (7-18); CALCIUM 8.5 mg/dL (8.5-10.1); CARBON DIOXIDE,CO2 31 mmol/L (21-32); CHLORIDE,CL 101 mmol/L (100-108); CREATININE 0.6 mg/dL (0.6-1.0); EST CRCL DRUG DOSING (CG) 93.83 mL/min; ESTIMATED GFR 108 mL/min (>60); GLUCOSE RANDOM 133 mg/dL (74-106); POTASSIUM,K 3.9 mmol/L (3.6-5.2); PROTEIN TOTAL,TP 5.9 g/dL (6.4-8.2); SODIUM,NA 139 mmol/L (140-148)
[2023-06-21 06:11] LABS: ANION GAP 10.9 mmol/L (5.0-14.0); BILIRUBIN TOTAL < 0.1 mg/dL (0.2-1.0)
[2023-06-21] MEDS: Hyoscyamine 0.125 MG Tab.SL SL SCH ×2 (07:10→12:03)
[2023-06-21] MEDS: Bacitracin Oint 28.35 GM Tube TOP SCH ×2 (08:10→13:26)
[2023-06-21] MEDS: Multivitamins with Iron Tab.Chew CHEW SCH (08:10)
[2023-06-21] MEDS: Potassium Chloride 10% 20 MEQ/15 ML Soln 15 ML UD Cup PO SCH (08:11)
[2023-06-21] MEDS: VERIFY SCOP PATCH SCH (08:11)
[2023-06-21] MEDS: Vitamin B Complex Tab PO SCH (08:11)
[2023-06-21 12:16] VITALS: BP 87/54; PULSE 91
[2023-06-21] MEDS: Scopalamine 1mg/3day Transdermal Patch TRDERM SCH (13:27)
[2023-06-21] MEDS: buPROPion 150 MG Tab.ER PO SCH (13:27)
== END 2023-06-21 14:34 | disposition home or self-care (01) | DRG 641 ==
LOC: JP.MS 11:24
PROVIDERS: ADMIT Hospitalist; ATTEND Internal Medicine
PROC: 0DH68UZ Insertion of Feeding Device into Stomach, Via Natural or Artificial Opening Endoscopic (ICD-10-PCS; 2023-06-20)
PROC: 0DP07UZ Removal of Feeding Device from Upper Intestinal Tract, Via Natural or Artificial Opening (ICD-10-PCS; principal; 2023-06-20 08:00)
DX: E86.0 Dehydration (principal); I10 Essential (primary) hypertension; K21.9 Gastro-esophageal reflux disease without esophagitis; D64.9 Anemia, unspecified; G89.29 Other chronic pain; F41.1 Generalized anxiety disorder; F32.9 Major depressive disorder, single episode, unspecified; R10.9 Unspecified abdominal pain; E83.42 Hypomagnesemia; K59.00 Constipation, unspecified; Z90.89 Acquired absence of other organs; Z90.49 Acquired absence of other specified parts of digestive tract; Z87.442 Personal history of urinary calculi; Z90.710 Acquired absence of both cervix and uterus; Z98.890 Other specified postprocedural states; Z90.721 Acquired absence of ovaries, unilateral; Z98.84 Bariatric surgery status; Z79.899 Other long term (current) drug therapy; Z11.52 Encounter for screening for COVID-19
CPT/HCPCS: 0241U; 36415; 70450; 70450-26; 80048; 80053; 83735; 84100; 84145; 85025; 85027; 86140; 97110-GP; 97161-GP; 97530-GP; 99222; 99232; 99239; A9270-GY; J1170; J1650; J2405; J2704; J3010; J3475; J3480; J7030; J7120

== ENCOUNTER 2023-07-07 10:44 | Emergency (ER) | payer MEDICAID ==
[2023-07-07 11:39] VITALS: BP 110/74; PULSE 103
[2023-07-07 12:53] LABS: BASE EXCESS VENOUS 5.1 mm/L; BASOPHILS ABSOLUTE AUTO 0.07 K/uL (0.00-0.10); BASOPHILS PERCENT AUTO 0.7 % (0.1-1.3); BICARBONATE,VENOUS 28.8 mmol/L; CARBOXYHEMOGLOBIN 1.7 % (0.0-1.6); EOSINOPHILS ABSOLUTE AUTO 0.11 K/uL (0.00-0.40); EOSINOPHILS PERCENT AUTO 1.2 % (0.0-5.4); HEMATOCRIT 36.2 % (34.3-46.0); HEMOGLOBIN 12.2 g/dL (11.2-15.5); IMMATURE GRAN PERCENT AUTO 0.2 % (0.0-0.7); LYMPHOCYTES ABSOLUTE AUTO 2.79 K/uL (0.8-3.3); LYMPHOCYTES PERCENT AUTO 29.4 % (11.4-47.7); MEAN CORPUSCULAR HEMOGLOBIN 31.6 pg (31.6-35.5); MEAN CORPUSCULAR HGB CONC 33.7 g/dL (31.6-35.5); MEAN CORPUSCULAR VOLUME 93.8 fL (81.4-99.0); METHEMOGLOBIN 0.6 %; MONOCYTES ABSOLUTE AUTO 0.79 K/uL (0.20-0.90); MONOCYTES PERCENT AUTO 8.3 % (3.3-12.6); NEUTROPHILS PERCENT AUTO 60.2 % (40.0-78.1); O2 SATURATION VENOUS 53.6; OXYHEMOGLOBIN 52.4 %; PCO2 VENOUS 40.3 mm/Hg; PH,VENOUS 7.468 (7.350-7.450); PLATELET COUNT,PLT 597 K/uL (130-375); RED BLOOD CELL COUNT 3.86 M/uL (3.77-5.24); TOTAL HEMOGLOBIN 12.5 g/dL (12.0-16.0); WHITE BLOOD CELL COUNT,WBC 9.5 K/uL (3.2-11.0)
[2023-07-07 12:54] LABS: IMMATURE GRAN ABSOLUTE AUTO 0.02 K/uL (0.00-0.23); PO2 VENOUS 31.1 mm/Hg
[2023-07-07] MEDS: Sodium Chloride 0.9% 1,000 ML IV ONE (12:56)
[2023-07-07] MEDS: Prochlorperazine 10 MG/2 ML SDV IVPUSH ONE (12:57)
[2023-07-07 13:13] LABS: A/G RATIO 0.7 (1.2-2.2); ALANINE AMINOTRANSFERASE,ALT 13 U/L (12-78); ALBUMIN 3.1 g/dL (3.4-5.0); ALKALINE PHOSPHATASE 93 U/L (46-116); ASPARTATE AMNIOTRANSFERASE,AST 10 U/L (15-37); BILIRUBIN TOTAL 0.2 mg/dL (0.2-1.0); BLOOD UREA NITROGEN,BUN 16 mg/dL (7-18); CALCIUM 8.5 mg/dL (8.5-10.1); CARBON DIOXIDE,CO2 33 mmol/L (21-32); CHLORIDE,CL 95 mmol/L (100-108); CREATININE 0.5 mg/dL (0.6-1.0); EST CRCL DRUG DOSING (CG) 104.61 mL/min; ESTIMATED GFR 113 mL/min (>60); GLUCOSE RANDOM 120 mg/dL (74-106); PROTEIN TOTAL,TP 7.6 g/dL (6.4-8.2); SODIUM,NA 133 mmol/L (140-148)
[2023-07-07 13:40] LABS: CORONAVIRUS COVID-19 NAA NEGATIVE (NEGATIVE); INFLUENZA A NAA NEGATIVE (NEGATIVE); INFLUENZA B NAA NEGATIVE (NEGATIVE); RESPIRATORY SYNCYTIAL VIR NAA NEGATIVE (NEGATIVE)
== END 2023-07-07 14:42 | disposition home or self-care (01) ==
LOC: JP.ED 10:44
DX: F11.23 Opioid dependence with withdrawal (principal); I10 Essential (primary) hypertension; K21.9 Gastro-esophageal reflux disease without esophagitis; Z87.891 Personal history of nicotine dependence; Z79.899 Other long term (current) drug therapy
CPT/HCPCS: 0241U; 36415; 74019; 80053; 80307; 82803; 83605; 83690; 84145; 85025; 96361; 96374; 99284; J0780; J7030

== ENCOUNTER 2023-08-17 09:50 | Emergency (ER) | payer MEDICAID ==
[2023-08-17 10:19] LABS: HEMATOCRIT 22.3 % (34.3-46.0); HEMOGLOBIN 7.4 g/dL (11.2-15.5); MEAN CORPUSCULAR HEMOGLOBIN 32.6 pg (31.6-35.5); MEAN CORPUSCULAR HGB CONC 33.2 g/dL (31.6-35.5); MEAN CORPUSCULAR VOLUME 98.2 fL (81.4-99.0); PLATELET COUNT,PLT 430 K/uL (130-375); RED BLOOD CELL COUNT 2.27 M/uL (3.77-5.24); WHITE BLOOD CELL COUNT,WBC 13.5 K/uL (3.2-11.0)
[2023-08-17] MEDS: SODIUM CHLORIDE 0.9% IV SCH (10:19)
[2023-08-17 10:29] LABS: A/G RATIO 0.8 (1.2-2.2); ALANINE AMINOTRANSFERASE,ALT 71 U/L (12-78); ALKALINE PHOSPHATASE 84 U/L (46-116); AMYLASE 46 U/L (25-115); ASPARTATE AMNIOTRANSFERASE,AST 13 U/L (15-37); BILIRUBIN TOTAL 0.2 mg/dL (0.2-1.0); BLOOD UREA NITROGEN,BUN 25 mg/dL (7-18); CALCIUM 9.2 mg/dL (8.5-10.1); CARBON DIOXIDE,CO2 27 mmol/L (21-32); CHLORIDE,CL 100 mmol/L (100-108); CREATININE 0.6 mg/dL (0.6-1.0); EST CRCL DRUG DOSING (CG) 86.96 mL/min; ESTIMATED GFR 107 mL/min (>60); GLUCOSE RANDOM 131 mg/dL (74-106); POTASSIUM,K 3.8 mmol/L (3.6-5.2); PROTEIN TOTAL,TP 6.6 g/dL (6.4-8.2); SODIUM,NA 139 mmol/L (140-148)
[2023-08-17 10:30] LABS: ANION GAP 15.8 mmol/L (5.0-14.0)
[2023-08-17 10:33] LABS: LACTIC ACID 2.4 mmol/L (0.4-2.0)
[2023-08-17] MEDS: Ondansetron 4 MG/2 ML SDV IVPUSH ONE ×2 (10:34→11:35)
[2023-08-17] MEDS: Morphine 10 MG/ML Syringe IVPUSH ONE ×2 (10:39→11:35)
[2023-08-17 10:42] LABS: ATYPICAL LYMPHOCYTES RARE; EOSINOPHILS ABSOLUTE MAN 0.14 K/uL (0.00-0.40); EOSINOPHILS PERCENT MAN 1 % (2-4); LYMPHOCYTES ABSOLUTE MAN 4.19 K/uL (0.8-3.3); LYMPHOCYTES PERCENT MAN 31 % (24-44); MONOCYTES ABSOLUTE MAN 0.81 K/uL (0.20-0.90); MONOCYTES PERCENT MAN 6 % (2-6); NEUTROPHILS ABSOLUTE MAN 8.37 K/uL (1.0-7.6); SEG NEUTROPHILS PERCENT MAN 62 % (36-66)
[2023-08-17 10:57] LABS: APPEARANCE,URINE CLOUDY (CLEAR); BILIRUBIN,URINE NEGATIVE (NEGATIVE); COLOR,URINE YELLOW (YELLOW); GLUCOSE,URINE NEGATIVE (NEGATIVE); KETONES,URINE NEGATIVE (NEGATIVE); LEUKOCYTE ESTERASE,URINE NEGATIVE (NEGATIVE); NITRITE,URINE NEGATIVE (NEGATIVE); OCCULT BLOOD,URINE NEGATIVE (NEGATIVE); PH,URINE 7.5 (5.0-8.0); PROTEIN,URINE NEGATIVE (NEGATIVE); UROBILINOGEN,URINE 0.2 EU/dL (0.2-1.0)
[2023-08-17 11:01] LABS: AMORPHOUS SEDIMENT,URINE MANY; BACTERIA,URINE RARE; EPITHELIAL CELLS,URINE NOT SEEN; MUCUS,URINE NOT SEEN; RBC,URINE NOT SEEN (0-5); WBC,URINE 0-5 (0-5)
[2023-08-17 11:36] LABS: CORONAVIRUS COVID-19 NAA NEGATIVE (NEGATIVE); INFLUENZA A NAA NEGATIVE (NEGATIVE); INFLUENZA B NAA NEGATIVE (NEGATIVE); RESPIRATORY SYNCYTIAL VIR NAA NEGATIVE (NEGATIVE)
[2023-08-17] MEDS: Sodium Chloride 0.9% 1,000 ML IV ONE ×2 (11:40→12:33)
[2023-08-17] MEDS: Sodium Chloride 0.9% 80 ML IV SCH (12:15)
[2023-08-17] MEDS: Sodium Chloride 0.9% 10 ML Syringe FLUSH ONE (12:15)
[2023-08-17] MEDS: Iopamidol 612 MG/ML 100 ML Bottle IV SCH (12:15)
[2023-08-17 12:43] LABS: HEMATOCRIT 17.5 % (34.3-46.0); MEAN CORPUSCULAR HEMOGLOBIN 33.1 pg (31.6-35.5); MEAN CORPUSCULAR HGB CONC 33.1 g/dL (31.6-35.5); RED BLOOD CELL COUNT 1.75 M/uL (3.77-5.24); WHITE BLOOD CELL COUNT,WBC 21.5 K/uL (3.2-11.0)
[2023-08-17 12:51] LABS: HEMOGLOBIN 5.8 g/dL (11.2-15.5)
[2023-08-17 15:00] VITALS: BP 96/54; PULSE 114
[2023-08-17] MEDS ORDERED: Acetaminophen 1,000 MG in Premix Bag 1 BAG IV ONE (15:55)
== END 2023-08-17 16:00 ==
LOC: JP.ED 09:50
DX: K83.1 Obstruction of bile duct (principal); D62 Acute posthemorrhagic anemia; R41.0 Disorientation, unspecified; K92.1 Melena; I95.9 Hypotension, unspecified; G89.29 Other chronic pain; Z93.1 Gastrostomy status; Z98.890 Other specified postprocedural states; I10 Essential (primary) hypertension; K21.9 Gastro-esophageal reflux disease without esophagitis; Z90.710 Acquired absence of both cervix and uterus; Z90.49 Acquired absence of other specified parts of digestive tract; Z79.899 Other long term (current) drug therapy
CPT/HCPCS: 0241U; 36415; 51702; 71045; 74177; 80053; 81001; 81025; 82150; 82272; 83605; 84145; 85025; 85027; 86140; 86850; 86900; 86901; 86920; 86922; 87040; 93005; 93010; 96361; 96374; 96375; 96376; 99285; J2270; J2405; J3490; J7030; P9016; Q9967

== ENCOUNTER 2023-10-05 07:13 | Day surgery (SDC) | payer MEDICAID ==
[2023-10-05] MEDS ORDERED: fentaNYL 50 MCG/ML SDV ONE (07:15)
[2023-10-05] MEDS ORDERED: Midazolam 1 MG/ML 2 ML SDV ONE (07:15)
[2023-10-05] MEDS ORDERED: Propofol 200 MG/20 ML SDV ONE (07:15)
[2023-10-05] MEDS: Ondansetron 4 MG/2 ML SDV IVPUSH ONE ×2 (08:27→10:21)
[2023-10-05] MEDS: Sodium Chloride 0.9% 1,000 ML IV SCH (08:30)
[2023-10-05 10:40] VITALS: BP 102/62; PULSE 74
== END 2023-10-05 10:50 | disposition home or self-care (01) ==
LOC: JP.SDS 07:13
PROVIDERS: ATTEND Surgery
DX: R13.10 Dysphagia, unspecified (principal); K22.10 Ulcer of esophagus without bleeding; F32.A Depression, unspecified
CPT/HCPCS: 00731; 43239; 43246; 43249; J2250; J2405; J2704; J3010; J7030

== ENCOUNTER 2023-10-30 13:38 | Emergency (ER) | payer MEDICAID ==
[2023-10-30 16:18] LABS: BASOPHILS ABSOLUTE AUTO 0.04 K/uL (0.00-0.10); BASOPHILS PERCENT AUTO 0.4 % (0.1-1.3); EOSINOPHILS ABSOLUTE AUTO 0.03 K/uL (0.00-0.40); EOSINOPHILS PERCENT AUTO 0.3 % (0.0-5.4); HEMATOCRIT 37.7 % (34.3-46.0); HEMOGLOBIN 13.1 g/dL (11.2-15.5); IMMATURE GRAN PERCENT AUTO 0.2 % (0.0-0.7); LYMPHOCYTES ABSOLUTE AUTO 3.06 K/uL (0.8-3.3); LYMPHOCYTES PERCENT AUTO 31.2 % (11.4-47.7); MEAN CORPUSCULAR HEMOGLOBIN 29.5 pg (31.6-35.5); MEAN CORPUSCULAR HGB CONC 34.7 g/dL (31.6-35.5); MEAN CORPUSCULAR VOLUME 84.9 fL (81.4-99.0); MONOCYTES ABSOLUTE AUTO 0.89 K/uL (0.20-0.90); MONOCYTES PERCENT AUTO 9.1 % (3.3-12.6); NEUTROPHILS ABSOLUTE AUTO 5.76 K/uL (1.0-7.6); NEUTROPHILS PERCENT AUTO 58.8 % (40.0-78.1); PLATELET COUNT,PLT 494 K/uL (130-375); RED BLOOD CELL COUNT 4.44 M/uL (3.77-5.24); WHITE BLOOD CELL COUNT,WBC 9.8 K/uL (3.2-11.0)
[2023-10-30 16:19] LABS: IMMATURE GRAN ABSOLUTE AUTO 0.02 K/uL (0.00-0.23)
[2023-10-30] MEDS: Sodium Chloride 0.9% 1,000 ML IV SCH (16:30)
[2023-10-30] MEDS: Ondansetron 4 MG/2 ML SDV IVPUSH ONE (16:31)
[2023-10-30] MEDS: Morphine 2 MG/ML SYRINGE IVPUSH ONE (16:35)
[2023-10-30 16:36] LABS: A/G RATIO 0.7 (1.2-2.2); ALANINE AMINOTRANSFERASE,ALT 17 U/L (12-78); ALBUMIN 3.3 g/dL (3.4-5.0); ALKALINE PHOSPHATASE 129 U/L (46-116); ASPARTATE AMNIOTRANSFERASE,AST 11 U/L (15-37); BILIRUBIN TOTAL 0.4 mg/dL (0.2-1.0); BLOOD UREA NITROGEN,BUN 32 mg/dL (7-18); CALCIUM 9.5 mg/dL (8.5-10.1); CARBON DIOXIDE,CO2 25 mmol/L (21-32); CHLORIDE,CL 98 mmol/L (100-108); CREATININE 0.5 mg/dL (0.6-1.0); EST CRCL DRUG DOSING (CG) 101.48 mL/min; ESTIMATED GFR 112 mL/min (>60); GLUCOSE RANDOM 110 mg/dL (74-106); POTASSIUM,K 3.6 mmol/L (3.6-5.2); SODIUM,NA 135 mmol/L (140-148)
[2023-10-30 16:39] LABS: ANION GAP 15.6 mmol/L (5.0-14.0)
[2023-10-30 17:26] VITALS: BP 172/112; PULSE 83
[2023-10-30] MEDS: droPERidol 5 MG/2 ML SDV IVPUSH ONE (17:46)
[2023-10-30] MEDS: Ketorolac 30 MG/ML SDV IVPUSH ONE (17:53)
[2023-10-30] MEDS: Ondansetron 4 MG Tab.DIS PO ONE (17:53)
== END 2023-10-30 18:42 | disposition home or self-care (01) ==
LOC: JP.ED 13:38
DX: K52.9 Noninfective gastroenteritis and colitis, unspecified (principal); I10 Essential (primary) hypertension; K21.9 Gastro-esophageal reflux disease without esophagitis; Z79.899 Other long term (current) drug therapy; Z90.49 Acquired absence of other specified parts of digestive tract; Z90.710 Acquired absence of both cervix and uterus
CPT/HCPCS: 36415; 80053; 85025; 96361; 96374; 96375; 99284; J1790; J1885; J2270; J2405; J7030

== ENCOUNTER 2023-11-13 10:17 | Inpatient (IN) | payer BC, MEDICAID, OTHER ==
[2023-11-13 11:04] LABS: BASOPHILS ABSOLUTE AUTO 0.06 K/uL (0.00-0.10); BASOPHILS PERCENT AUTO 0.2 % (0.1-1.3); HEMATOCRIT 32.6 % (34.3-46.0); HEMOGLOBIN 11.2 g/dL (11.2-15.5); IMMATURE GRAN ABSOLUTE AUTO 0.26 K/uL (0.00-0.23); LYMPHOCYTES ABSOLUTE AUTO 1.45 K/uL (0.8-3.3); LYMPHOCYTES PERCENT AUTO 5.5 % (11.4-47.7); MEAN CORPUSCULAR HEMOGLOBIN 29.9 pg (31.6-35.5); MEAN CORPUSCULAR HGB CONC 34.4 g/dL (31.6-35.5); MEAN CORPUSCULAR VOLUME 86.9 fL (81.4-99.0); MONOCYTES ABSOLUTE AUTO 1.48 K/uL (0.20-0.90); MONOCYTES PERCENT AUTO 5.6 % (3.3-12.6); NEUTROPHILS ABSOLUTE AUTO 23.09 K/uL (1.0-7.6); NEUTROPHILS PERCENT AUTO 87.7 % (40.0-78.1); PLATELET COUNT,PLT 490 K/uL (130-375); RED BLOOD CELL COUNT 3.75 M/uL (3.77-5.24); WHITE BLOOD CELL COUNT,WBC 26.3 K/uL (3.2-11.0)
[2023-11-13 11:29] LABS: LACTIC ACID 1.4 mmol/L (0.4-2.0)
[2023-11-13] MEDS: Ketorolac 30 MG/ML SDV IVPUSH ONE (11:33)
[2023-11-13] MEDS: Lactated Ringers 1,000 ML IV ONE (11:34)
[2023-11-13 11:37] LABS: A/G RATIO 0.7 (1.2-2.2); ALANINE AMINOTRANSFERASE,ALT 144 U/L (12-78); ALBUMIN 2.8 g/dL (3.4-5.0); ALKALINE PHOSPHATASE 151 U/L (46-116); ASPARTATE AMNIOTRANSFERASE,AST 270 U/L (15-37); BILIRUBIN TOTAL 0.6 mg/dL (0.2-1.0); BLOOD UREA NITROGEN,BUN 42 mg/dL (7-18); CALCIUM 9.5 mg/dL (8.5-10.1); CARBON DIOXIDE,CO2 29 mmol/L (21-32); CHLORIDE,CL 95 mmol/L (100-108); CREATININE 0.8 mg/dL (0.6-1.0); EST CRCL DRUG DOSING (CG) 59.98 mL/min; ESTIMATED GFR 88 mL/min (>60); GLUCOSE RANDOM 132 mg/dL (74-106); POTASSIUM,K 4.4 mmol/L (3.6-5.2); SODIUM,NA 131 mmol/L (140-148)
[2023-11-13 11:42] LABS: ANION GAP 11.4 mmol/L (5.0-14.0)
[2023-11-13] MEDS: cefTRIAXone 1 GM in Sodium Chloride 0.9% 50 ML IV ONE (12:49)
[2023-11-13] MEDS: Lidocaine 1% 5 ML VIAL INJECT ONE (12:50)
[2023-11-13] MEDS: Sodium Chloride 0.9% 1,000 ML IV SCH ×2 (13:02→16:28)
[2023-11-13 13:18] LABS: APPEARANCE,URINE CLEAR (CLEAR); BILIRUBIN,URINE NEGATIVE (NEGATIVE); COLOR,URINE YELLOW (YELLOW); GLUCOSE,URINE NEGATIVE (NEGATIVE); KETONES,URINE NEGATIVE (NEGATIVE); LEUKOCYTE ESTERASE,URINE NEGATIVE (NEGATIVE); NITRITE,URINE NEGATIVE (NEGATIVE); OCCULT BLOOD,URINE MODERATE (NEGATIVE); PROTEIN,URINE 30 mg/dL (NEGATIVE); UROBILINOGEN,URINE 0.2 EU/dL (0.2-1.0)
[2023-11-13 13:22] LABS: WBC,URINE 0-5 (0-5)
[2023-11-13 13:23] LABS: AMORPHOUS SEDIMENT,URINE NOT SEEN; AMPHETAMINES SCREEN, URINE NEGATIVE (NEGATIVE); BACTERIA,URINE NOT SEEN; BARBITURATE SCREEN,URINE NEGATIVE (NEGATIVE); BENZODIAZEPINES SCREEN,URINE NEGATIVE (NEGATIVE); EPITHELIAL CELLS,URINE FEW; METHADONE SCREEN, URINE NEGATIVE (NEGATIVE); METHAMPHETAMINES SCREEN, URINE NEGATIVE (NEGATIVE); MUCUS,URINE MANY; OXYCODONE SCREEN,URINE PRESUMPTIVE POSITIVE (NEGATIVE); PROPOXYPHENE SCREEN,URINE NEGATIVE (NEGATIVE); THC SCREEN,URINE 50 NG/ML NEGATIVE (NEGATIVE)
[2023-11-13] MEDS: HYDROmorphone 2 MG Tab PO ONE (15:41)
[2023-11-13] MEDS: HYDROmorphone 1 MG/ML Syringe IVPUSH ONE (15:42)
[2023-11-13] MEDS ORDERED: Hyoscyamine 0.125 MG Tab.SL SL PRN (15:53)
[2023-11-13] MEDS ORDERED: Acetaminophen 325 MG Tab PO PRN (15:53)
[2023-11-13] MEDS: LORazepam 0.5 MG Tab PO PRN (16:22)
[2023-11-13] MEDS: Ondansetron 4 MG Tab.DIS PO PRN (16:22)
[2023-11-13] MEDS: Enoxaparin 40 MG/0.4 ML Syringe SUBCUT SCH (16:27)
[2023-11-13] MEDS: HYDROmorphone 2 MG Tab PO PRN (19:41)
[2023-11-13] MEDS: Citalopram 20 MG Tab PO SCH (21:21)
[2023-11-14] MEDS: Zolpidem 5 MG Tab PO PRN (00:08)
[2023-11-14 06:16] LABS: HEMATOCRIT 26.7 % (34.3-46.0); HEMOGLOBIN 8.8 g/dL (11.2-15.5); MEAN CORPUSCULAR HEMOGLOBIN 29.1 pg (31.6-35.5); MEAN CORPUSCULAR VOLUME 88.4 fL (81.4-99.0); RED BLOOD CELL COUNT 3.02 M/uL (3.77-5.24); WHITE BLOOD CELL COUNT,WBC 16.1 K/uL (3.2-11.0)
[2023-11-14 06:56] LABS: A/G RATIO 0.6 (1.2-2.2); ALANINE AMINOTRANSFERASE,ALT 124 U/L (12-78); ALKALINE PHOSPHATASE 107 U/L (46-116); ASPARTATE AMNIOTRANSFERASE,AST 205 U/L (15-37); BILIRUBIN TOTAL 0.3 mg/dL (0.2-1.0); BLOOD UREA NITROGEN,BUN 20 mg/dL (7-18); CALCIUM 8.2 mg/dL (8.5-10.1); CARBON DIOXIDE,CO2 28 mmol/L (21-32); CHLORIDE,CL 103 mmol/L (100-108); CREATININE 0.4 mg/dL (0.6-1.0); EST CRCL DRUG DOSING (CG) 133.12 mL/min; ESTIMATED GFR 118 mL/min (>60); GLUCOSE RANDOM 109 mg/dL (74-106); PROTEIN TOTAL,TP 5.4 g/dL (6.4-8.2); SODIUM,NA 136 mmol/L (140-148)
[2023-11-14 07:05] LABS: CREATINE KINASE,CK 4630 U/L (26-192)
[2023-11-14] MEDS: Pantoprazole 40 MG Tab.CR PO SCH (08:42)
[2023-11-14] MEDS: Famotidine 20 MG Tab PO SCH (10:08)
[2023-11-14] MEDS: Dimethicone 20%/Zinc Oxide 25% 56 GM Spray Bottle TOP PRN (14:42)
[2023-11-14] MEDS: HYDROmorphone 1 MG/ML Syringe IVPUSH ONE (14:42)
[2023-11-14] MEDS: Sodium Chloride 0.9% 10 ML Syringe FLUSH PRN (15:11)
[2023-11-14] MEDS: Iopamidol 612 MG/ML 100 ML Bottle IV PRN (15:11)
[2023-11-14] MEDS: Sodium Chloride 0.9% 80 ML IV ONE (15:11)
[2023-11-14] MEDS: cefTRIAXone 1 GM in Sodium Chloride 0.9% 50 ML IV SCH (17:01)
[2023-11-14] MEDS: Doxycycline 100 MG in Sodium Chloride 0.9% 100 ML IV SCH (17:38)
[2023-11-14] MEDS: Ketorolac 30 MG/ML SDV IVPUSH PRN (19:52)
[2023-11-15 05:37] LABS: HEMATOCRIT 25.1 % (34.3-46.0); HEMOGLOBIN 8.3 g/dL (11.2-15.5); MEAN CORPUSCULAR HGB CONC 33.1 g/dL (31.6-35.5); MEAN CORPUSCULAR VOLUME 87.8 fL (81.4-99.0); RED BLOOD CELL COUNT 2.86 M/uL (3.77-5.24); WHITE BLOOD CELL COUNT,WBC 10.5 K/uL (3.2-11.0)
[2023-11-15 06:07] LABS: CALCIUM 8.4 mg/dL (8.5-10.1); CREATININE 0.4 mg/dL (0.6-1.0); EST CRCL DRUG DOSING (CG) 134.75 mL/min; POTASSIUM,K 3.5 mmol/L (3.6-5.2)
[2023-11-15 06:09] LABS: ANION GAP 11.5 mmol/L (5.0-14.0)
[2023-11-15] MEDS: Potassium Chloride 10 MEQ in Premix Bag 1 BAG IV SCH (09:10)
[2023-11-15] MEDS: Sucralfate 1 GM Tab PO SCH (11:33)
[2023-11-15] MEDS: tiZANidine 2 MG Tab PO PRN (11:33)
[2023-11-15] MEDS: Pantoprazole 40 MG Tab.CR PO SCH (17:03)
[2023-11-15] MEDS: Doxycycline 100 MG Cap PO SCH (21:13)
[2023-11-15] MEDS: Sennosides/Docusate Sodium 50-8.6 MG Tab PO PRN (21:14)
[2023-11-15] MEDS ORDERED: HYDROmorphone 1 MG/ML Syringe IVPUSH PRN (23:59)
[2023-11-16 05:34] LABS: HEMATOCRIT 26.3 % (34.3-46.0); HEMOGLOBIN 8.8 g/dL (11.2-15.5); MEAN CORPUSCULAR HEMOGLOBIN 28.9 pg (31.6-35.5); MEAN CORPUSCULAR HGB CONC 33.5 g/dL (31.6-35.5); MEAN CORPUSCULAR VOLUME 86.5 fL (81.4-99.0); RED BLOOD CELL COUNT 3.04 M/uL (3.77-5.24); WHITE BLOOD CELL COUNT,WBC 10.2 K/uL (3.2-11.0)
[2023-11-16 05:59] LABS: A/G RATIO 0.5 (1.2-2.2); ALANINE AMINOTRANSFERASE,ALT 80 U/L (12-78); ALBUMIN 1.7 g/dL (3.4-5.0); ALKALINE PHOSPHATASE 99 U/L (46-116); ASPARTATE AMNIOTRANSFERASE,AST 69 U/L (15-37); BILIRUBIN TOTAL 0.3 mg/dL (0.2-1.0); CALCIUM 8.2 mg/dL (8.5-10.1); CARBON DIOXIDE,CO2 24 mmol/L (21-32); CHLORIDE,CL 104 mmol/L (100-108); CREATINE KINASE,CK 894 U/L (26-192); CREATININE 0.4 mg/dL (0.6-1.0); EST CRCL DRUG DOSING (CG) 140.45 mL/min; ESTIMATED GFR 118 mL/min (>60); GLUCOSE RANDOM 76 mg/dL (74-106); POTASSIUM,K 3.3 mmol/L (3.6-5.2); PROTEIN TOTAL,TP 4.9 g/dL (6.4-8.2); SODIUM,NA 138 mmol/L (140-148)
[2023-11-16 06:03] LABS: BLOOD UREA NITROGEN,BUN 7 mg/dL (7-18)
[2023-11-16 06:14] LABS: ANION GAP 13.3 mmol/L (5.0-14.0)
[2023-11-16] MEDS: Potassium Chloride 10 MEQ in Premix Bag 1 BAG IV SCH (09:35)
[2023-11-16] MEDS ORDERED: Midazolam 1 MG/ML 2 ML SDV ONE (09:53)
[2023-11-16] MEDS ORDERED: Propofol 200 MG/20 ML SDV ONE ×3 (09:53→11:41)
[2023-11-16] MEDS ORDERED: fentaNYL 50 MCG/ML SDV ONE (09:54)
[2023-11-16] MEDS: Lidocaine 1% with EPINEPHrine 1:100,000 50 ML MDV ONE (11:40)
[2023-11-16] MEDS ORDERED: Sodium Chloride 0.9% 500 ML ONE (11:54)
[2023-11-16] MEDS: HYDROmorphone 1 MG/ML Syringe IVPUSH PRN (14:33)
[2023-11-16] MEDS: Ondansetron 4 MG/2 ML SDV IV PRN (17:10)
[2023-11-16] MEDS: tiZANidine 2 MG Tab PO PRN (18:49)
[2023-11-17] MEDS: Furosemide 20 MG/2 ML VIAL IVPUSH ONE (14:17)
[2023-11-17] MEDS: tiZANidine 2 MG Tab PO PRN (17:08)
[2023-11-17] MEDS: Trolamine Salicylate/Aloe Vera 10% Crm 85 GM Tube TOP PRN (20:10)
[2023-11-18 05:25] LABS: HEMATOCRIT 28.3 % (34.3-46.0); HEMOGLOBIN 9.8 g/dL (11.2-15.5); MEAN CORPUSCULAR HEMOGLOBIN 29.3 pg (31.6-35.5); MEAN CORPUSCULAR HGB CONC 34.6 g/dL (31.6-35.5); MEAN CORPUSCULAR VOLUME 84.7 fL (81.4-99.0); RED BLOOD CELL COUNT 3.34 M/uL (3.77-5.24); WHITE BLOOD CELL COUNT,WBC 9.2 K/uL (3.2-11.0)
[2023-11-18 05:44] LABS: CALCIUM 8.3 mg/dL (8.5-10.1); CREATININE 0.5 mg/dL (0.6-1.0); EST CRCL DRUG DOSING (CG) 107.15 mL/min
[2023-11-18 05:48] LABS: ANION GAP 11.9 mmol/L (5.0-14.0); POTASSIUM,K 2.9 mmol/L (3.6-5.2)
[2023-11-18] MEDS: Potassium Chloride 10 MEQ in Premix Bag 1 BAG IV SCH ×2 (06:14→08:19)
[2023-11-19 05:26] LABS: ANION GAP 5.4 mmol/L (5.0-14.0); CALCIUM 8.4 mg/dL (8.5-10.1); CREATININE 0.5 mg/dL (0.6-1.0); EST CRCL DRUG DOSING (CG) 106.59 mL/min; MAGNESIUM 1.3 mg/dL (1.8-2.4); POTASSIUM,K 3.6 mmol/L (3.6-5.2)
[2023-11-19] MEDS: Magnesium Sulfate/Water 2 GM in Premix Bag 1 BAG IV SCH (08:48)
[2023-11-19] MEDS: D5 1/2 NS w/ 20 mEq/L KCl 1,000 ML IV SCH (09:11)
[2023-11-19] MEDS: Magnesium Hydroxide 400 MG/5 ML Susp 30 ML Cup PO PRN (12:13)
[2023-11-20 05:18] LABS: HEMATOCRIT 27.6 % (34.3-46.0); HEMOGLOBIN 9.3 g/dL (11.2-15.5); MEAN CORPUSCULAR HEMOGLOBIN 29.2 pg (31.6-35.5); MEAN CORPUSCULAR HGB CONC 33.7 g/dL (31.6-35.5); MEAN CORPUSCULAR VOLUME 86.8 fL (81.4-99.0); RED BLOOD CELL COUNT 3.18 M/uL (3.77-5.24); WHITE BLOOD CELL COUNT,WBC 5.7 K/uL (3.2-11.0)
[2023-11-20 05:36] LABS: A/G RATIO 0.5 (1.2-2.2); ALANINE AMINOTRANSFERASE,ALT 43 U/L (12-78); ALBUMIN 1.7 g/dL (3.4-5.0); ALKALINE PHOSPHATASE 75 U/L (46-116); ASPARTATE AMNIOTRANSFERASE,AST 24 U/L (15-37); BILIRUBIN TOTAL 0.2 mg/dL (0.2-1.0); BLOOD UREA NITROGEN,BUN 3 mg/dL (7-18); CALCIUM 8.3 mg/dL (8.5-10.1); CARBON DIOXIDE,CO2 30 mmol/L (21-32); CHLORIDE,CL 104 mmol/L (100-108); CREATININE 0.5 mg/dL (0.6-1.0); EST CRCL DRUG DOSING (CG) 108.46 mL/min; ESTIMATED GFR 112 mL/min (>60); GLUCOSE RANDOM 115 mg/dL (74-106); POTASSIUM,K 4.4 mmol/L (3.6-5.2); PROTEIN TOTAL,TP 5.1 g/dL (6.4-8.2); SODIUM,NA 138 mmol/L (140-148)
[2023-11-20 05:39] LABS: ANION GAP 8.4 mmol/L (5.0-14.0)
[2023-11-20] MEDS: Barium Sulfate 98% Powder for Susp 340 GM Bottle PO PRN (10:59)
[2023-11-20] MEDS: Scopalamine 1mg/3day Transdermal Patch TRDERM PRN (12:44)
[2023-11-21] MEDS: SCOPOLAMINE PATCH CHECK TOP SCH (09:33)
[2023-11-21] MEDS ORDERED: Sodium Phosphate,Monobasic/Sodium Phosphate,Dibasic Enema 133 ML Bottle RECTAL PRN (14:59)
[2023-11-21] MEDS ORDERED: Bisacodyl 10 MG Supp RECTAL PRN (14:59)
[2023-11-21] MEDS: Polyethylene Glycol 3350 Powder 17 GM Packet PO ONE (15:55)
[2023-11-23] MEDS ORDERED: Bumetanide 2.5 MG/10 ML MDV IVPUSH SCH (12:30)
[2023-11-24 04:15] LABS: HEMATOCRIT 28.9 % (34.3-46.0); HEMOGLOBIN 9.7 g/dL (11.2-15.5); MEAN CORPUSCULAR HEMOGLOBIN 29.5 pg (31.6-35.5); MEAN CORPUSCULAR HGB CONC 33.6 g/dL (31.6-35.5); MEAN CORPUSCULAR VOLUME 87.8 fL (81.4-99.0); RED BLOOD CELL COUNT 3.29 M/uL (3.77-5.24); WHITE BLOOD CELL COUNT,WBC 6.8 K/uL (3.2-11.0)
[2023-11-24 04:36] LABS: A/G RATIO 0.6 (1.2-2.2); ALANINE AMINOTRANSFERASE,ALT 29 U/L (12-78); ALBUMIN 2.1 g/dL (3.4-5.0); ALKALINE PHOSPHATASE 81 U/L (46-116); ASPARTATE AMNIOTRANSFERASE,AST 10 U/L (15-37); BILIRUBIN TOTAL 0.2 mg/dL (0.2-1.0); BLOOD UREA NITROGEN,BUN 6 mg/dL (7-18); CALCIUM 8.8 mg/dL (8.5-10.1); CARBON DIOXIDE,CO2 33 mmol/L (21-32); CHLORIDE,CL 102 mmol/L (100-108); CREATININE 0.6 mg/dL (0.6-1.0); EST CRCL DRUG DOSING (CG) 88.36 mL/min; ESTIMATED GFR 107 mL/min (>60); GLUCOSE RANDOM 105 mg/dL (74-106); MAGNESIUM 1.6 mg/dL (1.8-2.4); POTASSIUM,K 4.4 mmol/L (3.6-5.2); PROTEIN TOTAL,TP 5.9 g/dL (6.4-8.2); SODIUM,NA 137 mmol/L (140-148)
[2023-11-24 05:11] LABS: ANION GAP 6.4 mmol/L (5.0-14.0)
[2023-11-24] MEDS: Magnesium Sulfate/Water 2 GM in Premix Bag 1 BAG IV SCH (08:51)
[2023-11-24] MEDS: Magnesium Oxide 400 MG Tab PO SCH (08:51)
[2023-11-24] MEDS: Hyoscyamine 0.125 MG Tab.SL SL SCH (14:47)
[2023-11-25] MEDS: Haloperidol 1 MG Tab PO PRN (14:40)
[2023-11-28 06:25] LABS: HEMATOCRIT 28.6 % (34.3-46.0); HEMOGLOBIN 9.5 g/dL (11.2-15.5); MEAN CORPUSCULAR HGB CONC 33.2 g/dL (31.6-35.5); MEAN CORPUSCULAR VOLUME 87.2 fL (81.4-99.0); RED BLOOD CELL COUNT 3.28 M/uL (3.77-5.24); WHITE BLOOD CELL COUNT,WBC 6.6 K/uL (3.2-11.0)
[2023-11-28 06:53] LABS: A/G RATIO 0.6 (1.2-2.2); ALANINE AMINOTRANSFERASE,ALT 32 U/L (12-78); ALBUMIN 2.3 g/dL (3.4-5.0); ALKALINE PHOSPHATASE 96 U/L (46-116); ANION GAP 6.9 mmol/L (5.0-14.0); ASPARTATE AMNIOTRANSFERASE,AST 45 U/L (15-37); BILIRUBIN TOTAL 0.1 mg/dL (0.2-1.0); BLOOD UREA NITROGEN,BUN 22 mg/dL (7-18); CALCIUM 8.6 mg/dL (8.5-10.1); CARBON DIOXIDE,CO2 33 mmol/L (21-32); CHLORIDE,CL 103 mmol/L (100-108); CREATININE 0.5 mg/dL (0.6-1.0); ESTIMATED GFR 112 mL/min (>60); GLUCOSE RANDOM 113 mg/dL (74-106); MAGNESIUM 1.7 mg/dL (1.8-2.4); POTASSIUM,K 3.9 mmol/L (3.6-5.2); PROTEIN TOTAL,TP 6.2 g/dL (6.4-8.2); SODIUM,NA 139 mmol/L (140-148)
[2023-11-28] MEDS: Magnesium Sulfate/Water 2 GM in Premix Bag 1 BAG IV ONE (09:45)
[2023-11-30 05:43] LABS: HEMATOCRIT 27.4 % (34.3-46.0); MEAN CORPUSCULAR HEMOGLOBIN 28.8 pg (31.6-35.5); MEAN CORPUSCULAR HGB CONC 32.8 g/dL (31.6-35.5); MEAN CORPUSCULAR VOLUME 87.5 fL (81.4-99.0); RED BLOOD CELL COUNT 3.13 M/uL (3.77-5.24); WHITE BLOOD CELL COUNT,WBC 6.2 K/uL (3.2-11.0)
[2023-11-30 06:04] LABS: A/G RATIO 0.6 (1.2-2.2); ALANINE AMINOTRANSFERASE,ALT 26 U/L (12-78); ALBUMIN 2.3 g/dL (3.4-5.0); ALKALINE PHOSPHATASE 84 U/L (46-116); ASPARTATE AMNIOTRANSFERASE,AST 14 U/L (15-37); BILIRUBIN TOTAL 0.2 mg/dL (0.2-1.0); BLOOD UREA NITROGEN,BUN 19 mg/dL (7-18); C-REACTIVE PROTEIN 0.91 mg/dL (<0.50); CALCIUM 8.8 mg/dL (8.5-10.1); CARBON DIOXIDE,CO2 33 mmol/L (21-32); CHLORIDE,CL 103 mmol/L (100-108); CREATININE 0.5 mg/dL (0.6-1.0); EST CRCL DRUG DOSING (CG) 108.18 mL/min; ESTIMATED GFR 112 mL/min (>60); GLUCOSE RANDOM 109 mg/dL (74-106); PROTEIN TOTAL,TP 6.1 g/dL (6.4-8.2); SODIUM,NA 139 mmol/L (140-148)
[2023-12-02 04:59] LABS: HEMATOCRIT 28.3 % (34.3-46.0); HEMOGLOBIN 9.4 g/dL (11.2-15.5); MEAN CORPUSCULAR HEMOGLOBIN 28.9 pg (31.6-35.5); MEAN CORPUSCULAR HGB CONC 33.2 g/dL (31.6-35.5); MEAN CORPUSCULAR VOLUME 87.1 fL (81.4-99.0); RED BLOOD CELL COUNT 3.25 M/uL (3.77-5.24)
[2023-12-02 05:29] LABS: A/G RATIO 0.6 (1.2-2.2); ALANINE AMINOTRANSFERASE,ALT 22 U/L (12-78); ALBUMIN 2.4 g/dL (3.4-5.0); ALKALINE PHOSPHATASE 91 U/L (46-116); ASPARTATE AMNIOTRANSFERASE,AST 17 U/L (15-37); BILIRUBIN TOTAL 0.1 mg/dL (0.2-1.0); BLOOD UREA NITROGEN,BUN 20 mg/dL (7-18); CALCIUM 8.8 mg/dL (8.5-10.1); CARBON DIOXIDE,CO2 32 mmol/L (21-32); CHLORIDE,CL 102 mmol/L (100-108); CREATININE 0.5 mg/dL (0.6-1.0); EST CRCL DRUG DOSING (CG) 108.08 mL/min; ESTIMATED GFR 112 mL/min (>60); GLUCOSE RANDOM 120 mg/dL (74-106); PROTEIN TOTAL,TP 6.4 g/dL (6.4-8.2); SODIUM,NA 138 mmol/L (140-148)
[2023-12-04 05:08] VITALS: BP 98/61; PULSE 77
== END 2023-12-04 11:00 | disposition home health service (06) | DRG 564 ==
LOC: JP.ED 10:17 → JP.MS 14:34
PROVIDERS: ADMIT Internal Medicine; ATTEND Hospitalist
PROC: 0D20XUZ Change Feeding Device in Upper Intestinal Tract, External Approach (ICD-10-PCS; 2023-11-16)
PROC: 0D768ZZ Dilation of Stomach, Via Natural or Artificial Opening Endoscopic (ICD-10-PCS; principal; 2023-11-16 12:30)
PROC: 0D7A8ZZ Dilation of Jejunum, Via Natural or Artificial Opening Endoscopic (ICD-10-PCS; 2023-11-16 12:30)
DX: T79.6XXA Traumatic ischemia of muscle, initial encounter (principal); J18.9 Pneumonia, unspecified organism; E46 Unspecified protein-calorie malnutrition; Z68.1 Body mass index [BMI] 19.9 or less, adult; R13.10 Dysphagia, unspecified; E86.0 Dehydration; R11.2 Nausea with vomiting, unspecified; K21.9 Gastro-esophageal reflux disease without esophagitis; R10.9 Unspecified abdominal pain; I10 Essential (primary) hypertension; D64.9 Anemia, unspecified; F41.9 Anxiety disorder, unspecified; F32.A Depression, unspecified; R62.7 Adult failure to thrive; Z90.49 Acquired absence of other specified parts of digestive tract; Z90.89 Acquired absence of other organs; Z98.84 Bariatric surgery status; Z90.710 Acquired absence of both cervix and uterus; Z90.721 Acquired absence of ovaries, unilateral; Z86.010 Personal history of colon polyps; Z79.899 Other long term (current) drug therapy; W01.10XA Fall on same level from slipping, tripping and stumbling with subsequent striking against unspecified object, initial encounter; Y92.091 Bathroom in other non-institutional residence as the place of occurrence of the external cause
CPT/HCPCS: 00731-QZ; 36415; 71045; 71045-26; 72100; 72100-26; 74177; 74177-26; 74240; 74240-26; 74248; 80048; 80053; 80305-QW; 81001; 82550; 83605; 83735; 84132; 84145; 84484; 85025; 85027; 86140; 87040; 96361; 96365; 96375; 97140-GP; 97162-GP; 97530-GP; 99222; 99231; 99232; 99239; 99285; 99285-25; A9270-GY; C1726; J0696; J1170; J1650; J1885; J1940; J2250; J2405; J2704; J3010; J3475; J3480; J3490; J7030; J7040; J7120; Q0162; Q9967

== ENCOUNTER 2023-12-10 18:45 | Emergency (ER) | payer MEDICAID ==
[2023-12-10] MEDS: Ondansetron 4 MG/2 ML SDV IVPUSH ONE ×2 (19:35→22:59)
[2023-12-10] MEDS: Sodium Chloride 0.9% 1,000 ML IV SCH (20:31)
[2023-12-10] MEDS: LORazepam 2 MG/ML SDV IVPUSH ONE (20:32)
[2023-12-10] MEDS ORDERED: Sodium Chloride 0.9% 10 ML Syringe FLUSH PRN (20:37)
[2023-12-10] MEDS ORDERED: Sodium Chloride 0.9% 100 ML IV SCH (20:45)
[2023-12-10] MEDS ORDERED: Iopamidol 612 MG/ML 100 ML Bottle IV SCH (20:45)
[2023-12-10] MEDS: fentaNYL 50 MCG/ML SDV IVPUSH PRN (21:39)
[2023-12-10] MEDS ORDERED: Naloxone 0.4 MG/ML SDV IVPUSH PRN (23:59)
[2023-12-11] MEDS: Prochlorperazine 10 MG/2 ML SDV IVPUSH ONE (00:10)
[2023-12-11] MEDS: Pantoprazole 40 MG Vial IVPUSH ONE (00:10)
[2023-12-11] MEDS: fentaNYL 50 MCG/ML SDV IVPUSH ONE (00:10)
[2023-12-11 00:22] LABS: BASOPHILS PERCENT AUTO 0.1 % (0.1-1.3); HEMATOCRIT 38.8 % (34.3-46.0); HEMOGLOBIN 13.4 g/dL (11.2-15.5); IMMATURE GRAN ABSOLUTE AUTO 0.04 K/uL (0.00-0.23); IMMATURE GRAN PERCENT AUTO 0.4 % (0.0-0.7); LYMPHOCYTES ABSOLUTE AUTO 1.56 K/uL (0.8-3.3); MEAN CORPUSCULAR HEMOGLOBIN 28.5 pg (31.6-35.5); MEAN CORPUSCULAR HGB CONC 34.5 g/dL (31.6-35.5); MEAN CORPUSCULAR VOLUME 82.4 fL (81.4-99.0); MONOCYTES ABSOLUTE AUTO 0.64 K/uL (0.20-0.90); NEUTROPHILS ABSOLUTE AUTO 6.91 K/uL (1.0-7.6); NEUTROPHILS PERCENT AUTO 75.5 % (40.0-78.1); PLATELET COUNT,PLT 328 K/uL (130-375); RED BLOOD CELL COUNT 4.71 M/uL (3.77-5.24); WHITE BLOOD CELL COUNT,WBC 9.2 K/uL (3.2-11.0)
[2023-12-11 00:27] LABS: BASOPHILS ABSOLUTE AUTO 0.01 K/uL (0.00-0.10)
[2023-12-11 00:52] LABS: A/G RATIO 0.6 (1.2-2.2); ALANINE AMINOTRANSFERASE,ALT 22 U/L (12-78); ALBUMIN 3.1 g/dL (3.4-5.0); ALKALINE PHOSPHATASE 100 U/L (46-116); ASPARTATE AMNIOTRANSFERASE,AST 22 U/L (15-37); BILIRUBIN TOTAL 0.6 mg/dL (0.2-1.0); BLOOD UREA NITROGEN,BUN 16 mg/dL (7-18); CALCIUM 8.8 mg/dL (8.5-10.1); CARBON DIOXIDE,CO2 25 mmol/L (21-32); CHLORIDE,CL 97 mmol/L (100-108); CREATININE 0.6 mg/dL (0.6-1.0); EST CRCL DRUG DOSING (CG) 88.52 mL/min; ESTIMATED GFR 107 mL/min (>60); GLUCOSE RANDOM 156 mg/dL (74-106); MAGNESIUM 1.6 mg/dL (1.8-2.4); POTASSIUM,K 3.6 mmol/L (3.6-5.2); PROTEIN TOTAL,TP 8.2 g/dL (6.4-8.2); SODIUM,NA 135 mmol/L (140-148)
[2023-12-11 00:54] LABS: ANION GAP 16.6 mmol/L (5.0-14.0)
[2023-12-11] MEDS: Magnesium Sulfate/Water 2 GM in Premix Bag 1 BAG IV ONE (01:27)
[2023-12-11] MEDS: diphenhydrAMINE 50 MG/ML SDV IVPUSH ONE (02:03)
[2023-12-11 06:50] VITALS: BP 137/88; PULSE 91
== END 2023-12-11 09:31 | disposition home or self-care (01) ==
LOC: JP.ED 18:45
DX: R00.2 Palpitations (principal); R07.89 Other chest pain; R10.13 Epigastric pain; R94.31 Abnormal electrocardiogram [ECG] [EKG]; E86.0 Dehydration; E46 Unspecified protein-calorie malnutrition; E83.42 Hypomagnesemia; I10 Essential (primary) hypertension; K21.9 Gastro-esophageal reflux disease without esophagitis; Z79.899 Other long term (current) drug therapy
CPT/HCPCS: 36415; 74176; 80053; 83735; 84484; 85025; 86140; 93005; 96361; 96365; 96366; 96375; 96376; 99285; J0780; J1200; J2060; J2405; J2470; J3010; J3475; J7030

== ENCOUNTER 2023-12-19 06:20 | Day surgery (SDC) | payer BC, MEDICAID, OTHER ==
[2023-12-19] MEDS: Lactated Ringers 1,000 ML IV SCH (07:05)
[2023-12-19] MEDS: Cyanocobalamin (Vitamin B12) 1,000 MCG/ML SDV IM SCH (07:05)
[2023-12-19] MEDS ORDERED: Midazolam 1 MG/ML 2 ML SDV ONE (07:21)
[2023-12-19] MEDS ORDERED: Propofol 200 MG/20 ML SDV ONE (07:21)
[2023-12-19] MEDS ORDERED: fentaNYL 50 MCG/ML SDV ONE (07:21)
[2023-12-19] MEDS: MVI, Adult with Vitamin K 10 ML, Thiamine 200 MG, Chromium/Copper/Mang/Selen/Zn 1 ML in... IV ONE (08:29)
[2023-12-19 08:34] VITALS: BP 115/78; PULSE 92
== END 2023-12-19 11:00 | disposition home or self-care (01) ==
LOC: JP.SDS 06:20
PROVIDERS: ATTEND Surgery
DX: R13.10 Dysphagia, unspecified (principal)
CPT/HCPCS: 00731-QZ; 87102; C1726; J2250; J2704; J3010; J3411; J3420; J7120

== ENCOUNTER 2023-12-25 09:08 | Emergency (ER) | payer MEDICAID ==
[2023-12-25] MEDS ORDERED: Naloxone 0.4 MG/ML SDV IVPUSH PRN (10:00)
[2023-12-25 10:21] LABS: BASE EXCESS VENOUS 3.5 mm/L; BICARBONATE,VENOUS 26.6 mmol/L; CARBOXYHEMOGLOBIN 2.7 % (0.0-1.6); METHEMOGLOBIN 0.7 %; O2 SATURATION VENOUS 56.5; OXYHEMOGLOBIN 54.6 %; PCO2 VENOUS 36.3 mm/Hg; PH,VENOUS 7.477 (7.350-7.450); TOTAL HEMOGLOBIN 13.3 g/dL (12.0-16.0)
[2023-12-25 10:24] LABS: BASOPHILS ABSOLUTE AUTO 0.06 K/uL (0.00-0.10); BASOPHILS PERCENT AUTO 0.7 % (0.1-1.3); EOSINOPHILS ABSOLUTE AUTO 0.08 K/uL (0.00-0.40); EOSINOPHILS PERCENT AUTO 0.9 % (0.0-5.4); HEMATOCRIT 37.3 % (34.3-46.0); HEMOGLOBIN 12.9 g/dL (11.2-15.5); IMMATURE GRAN PERCENT AUTO 0.2 % (0.0-0.7); LYMPHOCYTES ABSOLUTE AUTO 1.81 K/uL (0.8-3.3); LYMPHOCYTES PERCENT AUTO 20.7 % (11.4-47.7); MEAN CORPUSCULAR HEMOGLOBIN 30.3 pg (31.6-35.5); MEAN CORPUSCULAR HGB CONC 34.6 g/dL (31.6-35.5); MEAN CORPUSCULAR VOLUME 87.6 fL (81.4-99.0); MONOCYTES ABSOLUTE AUTO 0.51 K/uL (0.20-0.90); MONOCYTES PERCENT AUTO 5.8 % (3.3-12.6); NEUTROPHILS ABSOLUTE AUTO 6.26 K/uL (1.0-7.6); NEUTROPHILS PERCENT AUTO 71.7 % (40.0-78.1); PLATELET COUNT,PLT 532 K/uL (130-375); PO2 VENOUS 30.8 mm/Hg; RED BLOOD CELL COUNT 4.26 M/uL (3.77-5.24); WHITE BLOOD CELL COUNT,WBC 8.7 K/uL (3.2-11.0)
[2023-12-25 10:25] LABS: IMMATURE GRAN ABSOLUTE AUTO 0.02 K/uL (0.00-0.23)
[2023-12-25] MEDS: Ondansetron 4 MG/2 ML SDV IVPUSH ONE (10:28)
[2023-12-25] MEDS: Sodium Chloride 0.9% 1,000 ML IV ONE ×2 (10:40→14:11)
[2023-12-25] MEDS: HYDROmorphone 0.5 MG/0.5 ML Syringe IVPUSH PRN (10:41)
[2023-12-25 11:31] LABS: A/G RATIO 0.9 (1.2-2.2); ALANINE AMINOTRANSFERASE,ALT 84 U/L (12-78); ALBUMIN 3.9 g/dL (3.4-5.0); ALKALINE PHOSPHATASE 207 U/L (46-116); ASPARTATE AMNIOTRANSFERASE,AST 15 U/L (15-37); BILIRUBIN TOTAL 0.4 mg/dL (0.2-1.0); BLOOD UREA NITROGEN,BUN 16 mg/dL (7-18); CALCIUM 9.7 mg/dL (8.5-10.1); CARBON DIOXIDE,CO2 25 mmol/L (21-32); CHLORIDE,CL 96 mmol/L (100-108); CREATININE 0.7 mg/dL (0.6-1.0); EST CRCL DRUG DOSING (CG) 66.61 mL/min; ESTIMATED GFR 103 mL/min (>60); GLUCOSE RANDOM 124 mg/dL (74-106); PROTEIN TOTAL,TP 8.1 g/dL (6.4-8.2); SODIUM,NA 136 mmol/L (140-148)
[2023-12-25] MEDS: Sodium Chloride 0.9% 80 ML IV STA (12:41)
[2023-12-25] MEDS: Sodium Chloride 0.9% 10 ML Syringe FLUSH STA (12:41)
[2023-12-25] MEDS: Iopamidol 612 MG/ML 100 ML Bottle IV STA (12:41)
[2023-12-25] MEDS: Prochlorperazine 10 MG/2 ML SDV IVPUSH ONE (13:58)
[2023-12-25 14:57] VITALS: BP 125/86; PULSE 98
== END 2023-12-25 15:45 | disposition home or self-care (01) ==
LOC: JP.ED 09:08
DX: E86.0 Dehydration (principal); R11.2 Nausea with vomiting, unspecified; I10 Essential (primary) hypertension; Z79.899 Other long term (current) drug therapy
CPT/HCPCS: 36415; 74177; 80053; 80307; 82803; 83690; 84145; 85025; 96361; 96374; 96375; 96376; 99283; 99284; J0780; J1170; J2405; J3490; J7030; Q9967

== ENCOUNTER 2024-01-12 06:18 | Day surgery (SDC) | payer BC, MEDICAID ==
[2024-01-12] MEDS: Lactated Ringers 1,000 ML IV SCH (06:20)
[2024-01-12] MEDS ORDERED: Midazolam 1 MG/ML 2 ML SDV ONE (07:08)
[2024-01-12] MEDS ORDERED: fentaNYL 50 MCG/ML SDV ONE (07:08)
[2024-01-12] MEDS ORDERED: Propofol 200 MG/20 ML SDV ONE (07:09)
[2024-01-12] MEDS: MVI, Adult with Vitamin K 10 ML, Thiamine 200 MG, Chromium/Copper/Mang/Selen/Zn 1 ML in... IV ONE (07:35)
[2024-01-12 10:02] VITALS: BP 107/59; PULSE 92
== END 2024-01-12 10:00 | disposition home or self-care (01) ==
LOC: JP.SDS 06:18
PROVIDERS: ATTEND Surgery
DX: R13.10 Dysphagia, unspecified (principal); K22.89 Other specified disease of esophagus
CPT/HCPCS: 43235; J2250; J2704; J3010; J3411; J7120

== ENCOUNTER 2024-01-19 08:40 | Emergency (ER) | payer MEDICAID ==
[2024-01-19] MEDS ORDERED: Sodium Chloride 0.9% 500 ML IV SCH (10:15)
[2024-01-19] MEDS: HYDROmorphone 1 MG/ML Syringe IM ONE ×2 (10:34→12:15)
[2024-01-19] MEDS: droPERidol 5 MG/2 ML SDV IM ONE (10:35)
[2024-01-19] MEDS: diphenhydrAMINE 50 MG/ML SDV IM ONE (10:35)
[2024-01-19 10:55] LABS: BASOPHILS ABSOLUTE AUTO 0.03 K/uL (0.00-0.10); BASOPHILS PERCENT AUTO 0.3 % (0.1-1.3); EOSINOPHILS PERCENT AUTO 0.1 % (0.0-5.4); HEMATOCRIT 35.8 % (34.3-46.0); HEMOGLOBIN 12.8 g/dL (11.2-15.5); IMMATURE GRAN ABSOLUTE AUTO 0.05 K/uL (0.00-0.23); IMMATURE GRAN PERCENT AUTO 0.5 % (0.0-0.7); LYMPHOCYTES ABSOLUTE AUTO 2.06 K/uL (0.8-3.3); LYMPHOCYTES PERCENT AUTO 22.5 % (11.4-47.7); MEAN CORPUSCULAR HEMOGLOBIN 30.9 pg (31.6-35.5); MEAN CORPUSCULAR HGB CONC 35.8 g/dL (31.6-35.5); MEAN CORPUSCULAR VOLUME 86.5 fL (81.4-99.0); MONOCYTES ABSOLUTE AUTO 0.49 K/uL (0.20-0.90); MONOCYTES PERCENT AUTO 5.3 % (3.3-12.6); NEUTROPHILS ABSOLUTE AUTO 6.52 K/uL (1.0-7.6); NEUTROPHILS PERCENT AUTO 71.3 % (40.0-78.1); PLATELET COUNT,PLT 423 K/uL (130-375); RED BLOOD CELL COUNT 4.14 M/uL (3.77-5.24); WHITE BLOOD CELL COUNT,WBC 9.2 K/uL (3.2-11.0)
[2024-01-19 11:12] LABS: EOSINOPHILS ABSOLUTE AUTO 0.01 K/uL (0.00-0.40)
[2024-01-19 11:14] LABS: A/G RATIO 0.9 (1.2-2.2); ALANINE AMINOTRANSFERASE,ALT 33 U/L (12-78); ALBUMIN 3.9 g/dL (3.4-5.0); ALKALINE PHOSPHATASE 128 U/L (46-116); ASPARTATE AMNIOTRANSFERASE,AST 19 U/L (15-37); BILIRUBIN TOTAL 0.6 mg/dL (0.2-1.0); BLOOD UREA NITROGEN,BUN 20 mg/dL (7-18); CALCIUM 9.9 mg/dL (8.5-10.1); CARBON DIOXIDE,CO2 24 mmol/L (21-32); CHLORIDE,CL 96 mmol/L (100-108); CREATININE 0.6 mg/dL (0.6-1.0); EST CRCL DRUG DOSING (CG) 77.37 mL/min; ESTIMATED GFR 107 mL/min (>60); GLUCOSE RANDOM 112 mg/dL (74-106); POTASSIUM,K 3.3 mmol/L (3.6-5.2); PROTEIN TOTAL,TP 8.3 g/dL (6.4-8.2); SODIUM,NA 133 mmol/L (140-148)
[2024-01-19 11:15] LABS: ANION GAP 16.3 mmol/L (5.0-14.0)
[2024-01-19 11:17] VITALS: BP 116/79; PULSE 102
== END 2024-01-19 14:28 | disposition home or self-care (01) ==
LOC: JP.ED 08:40
DX: R10.84 Generalized abdominal pain (principal); R11.2 Nausea with vomiting, unspecified; I10 Essential (primary) hypertension; Z79.899 Other long term (current) drug therapy; Z90.49 Acquired absence of other specified parts of digestive tract; Z90.710 Acquired absence of both cervix and uterus
CPT/HCPCS: 36415; 80053; 85025; 96372; 99284; J1170; J1200; J1790

== ENCOUNTER 2024-01-23 11:50 | Emergency (ER) | payer MEDICAID, OTHER ==
[2024-01-23] MEDS: Ondansetron 4 MG/2 ML SDV IVPUSH ONE (12:42)
[2024-01-23] MEDS: HYDROmorphone 0.5 MG/0.5 ML Syringe IVPUSH ONE (12:42)
[2024-01-23] MEDS: Sodium Chloride 0.9% 1,000 ML IV ONE (12:42)
[2024-01-23 12:47] LABS: BASOPHILS ABSOLUTE AUTO 0.04 K/uL (0.00-0.10); BASOPHILS PERCENT AUTO 0.5 % (0.1-1.3); EOSINOPHILS ABSOLUTE AUTO 0.13 K/uL (0.00-0.40); EOSINOPHILS PERCENT AUTO 1.6 % (0.0-5.4); HEMATOCRIT 34.3 % (34.3-46.0); HEMOGLOBIN 12.1 g/dL (11.2-15.5); IMMATURE GRAN PERCENT AUTO 0.2 % (0.0-0.7); LYMPHOCYTES ABSOLUTE AUTO 2.22 K/uL (0.8-3.3); LYMPHOCYTES PERCENT AUTO 27.7 % (11.4-47.7); MEAN CORPUSCULAR HEMOGLOBIN 31.3 pg (31.6-35.5); MEAN CORPUSCULAR HGB CONC 35.3 g/dL (31.6-35.5); MEAN CORPUSCULAR VOLUME 88.9 fL (81.4-99.0); MONOCYTES ABSOLUTE AUTO 0.72 K/uL (0.20-0.90); NEUTROPHILS ABSOLUTE AUTO 4.88 K/uL (1.0-7.6); PLATELET COUNT,PLT 648 K/uL (130-375); RED BLOOD CELL COUNT 3.86 M/uL (3.77-5.24)
[2024-01-23 12:50] LABS: IMMATURE GRAN ABSOLUTE AUTO 0.02 K/uL (0.00-0.23)
[2024-01-23 13:08] LABS: A/G RATIO 0.9 (1.2-2.2); ALANINE AMINOTRANSFERASE,ALT 25 U/L (12-78); ALBUMIN 3.4 g/dL (3.4-5.0); ALKALINE PHOSPHATASE 112 U/L (46-116); ASPARTATE AMNIOTRANSFERASE,AST 13 U/L (15-37); BILIRUBIN TOTAL 0.3 mg/dL (0.2-1.0); BLOOD UREA NITROGEN,BUN 22 mg/dL (7-18); CARBON DIOXIDE,CO2 27 mmol/L (21-32); CHLORIDE,CL 96 mmol/L (100-108); CREATININE 0.6 mg/dL (0.6-1.0); ESTIMATED GFR 107 mL/min (>60); GLUCOSE RANDOM 119 mg/dL (74-106); POTASSIUM,K 3.5 mmol/L (3.6-5.2); PROTEIN TOTAL,TP 7.2 g/dL (6.4-8.2); SODIUM,NA 132 mmol/L (140-148)
[2024-01-23 13:10] LABS: ANION GAP 12.5 mmol/L (5.0-14.0)
[2024-01-23] MEDS: Prochlorperazine 25 MG Supp RECTAL ONE (13:49)
[2024-01-23 15:05] VITALS: BP 126/90; PULSE 98
== END 2024-01-23 15:21 | disposition home or self-care (01) ==
LOC: JP.ED 11:50
DX: R11.2 Nausea with vomiting, unspecified (principal); R10.9 Unspecified abdominal pain; G89.29 Other chronic pain; R10.817 Generalized abdominal tenderness; Z87.891 Personal history of nicotine dependence; I10 Essential (primary) hypertension; Z90.49 Acquired absence of other specified parts of digestive tract; Z90.710 Acquired absence of both cervix and uterus
CPT/HCPCS: 36415; 80053; 83605; 83735; 85025; 96361; 96374; 96375; 99284; A9270; J1170; J2405; J7030; 99283

== ENCOUNTER 2024-01-29 10:25 | Emergency (ER) | payer MEDICAID, OTHER ==
[2024-01-29 12:58] LABS: BASOPHILS ABSOLUTE AUTO 0.08 K/uL (0.00-0.10); BASOPHILS PERCENT AUTO 1.2 % (0.1-1.3); EOSINOPHILS ABSOLUTE AUTO 0.25 K/uL (0.00-0.40); EOSINOPHILS PERCENT AUTO 3.7 % (0.0-5.4); HEMATOCRIT 33.7 % (34.3-46.0); HEMOGLOBIN 11.6 g/dL (11.2-15.5); IMMATURE GRAN PERCENT AUTO 0.1 % (0.0-0.7); LYMPHOCYTES ABSOLUTE AUTO 2.71 K/uL (0.8-3.3); LYMPHOCYTES PERCENT AUTO 40.2 % (11.4-47.7); MEAN CORPUSCULAR HGB CONC 34.4 g/dL (31.6-35.5); MEAN CORPUSCULAR VOLUME 90.1 fL (81.4-99.0); MONOCYTES PERCENT AUTO 10.4 % (3.3-12.6); NEUTROPHILS ABSOLUTE AUTO 2.99 K/uL (1.0-7.6); NEUTROPHILS PERCENT AUTO 44.4 % (40.0-78.1); PLATELET COUNT,PLT 592 K/uL (130-375); RED BLOOD CELL COUNT 3.74 M/uL (3.77-5.24); WHITE BLOOD CELL COUNT,WBC 6.7 K/uL (3.2-11.0)
[2024-01-29 13:00] LABS: IMMATURE GRAN ABSOLUTE AUTO 0.01 K/uL (0.00-0.23)
[2024-01-29] MEDS: droPERidol 5 MG/2 ML SDV IVPUSH ONE (13:04)
[2024-01-29] MEDS: Lactated Ringers 1,000 ML IV ONE (13:06)
[2024-01-29] MEDS: HYDROmorphone 1 MG/ML Syringe IVPUSH ONE ×2 (13:07→16:30)
[2024-01-29] MEDS: Sodium Chloride 0.9% 10 ML Syringe FLUSH PRN (13:07)
[2024-01-29 13:10] LABS: CALCIUM 9.6 mg/dL (8.5-10.1); CREATININE 0.6 mg/dL (0.6-1.0); EST CRCL DRUG DOSING (CG) 76.35 mL/min; POTASSIUM,K 3.7 mmol/L (3.6-5.2)
[2024-01-29 13:13] LABS: ANION GAP 11.7 mmol/L (5.0-14.0)
[2024-01-29 16:20] VITALS: BP 143/99; PULSE 95
[2024-01-29] MEDS: Ondansetron 4 MG/2 ML SDV IVPUSH ONE (16:29)
== END 2024-01-29 18:11 ==
LOC: JP.ED 10:25
DX: K94.19 Other complications of enterostomy (principal); I10 Essential (primary) hypertension; Z79.899 Other long term (current) drug therapy; Z90.49 Acquired absence of other specified parts of digestive tract; Z90.710 Acquired absence of both cervix and uterus
CPT/HCPCS: 36415; 80048; 85025; 96361; 96374; 96375; 96376; 99284; J1170; J1790; J2405; J3490; J7120

== ENCOUNTER 2024-02-07 08:36 | Emergency (ER) | payer MEDICAID ==
[2024-02-07 09:16] VITALS: BP 90/57
[2024-02-07] MEDS ORDERED: Naloxone 0.4 MG/ML SDV IVPUSH PRN (09:36)
[2024-02-07] MEDS: Sodium Chloride 0.9% 1,000 ML IV SCH (10:16)
[2024-02-07 10:18] LABS: BASOPHILS ABSOLUTE AUTO 0.05 K/uL (0.00-0.10); BASOPHILS PERCENT AUTO 0.6 % (0.1-1.3); EOSINOPHILS ABSOLUTE AUTO 0.41 K/uL (0.00-0.40); EOSINOPHILS PERCENT AUTO 4.8 % (0.0-5.4); HEMATOCRIT 30.5 % (34.3-46.0); HEMOGLOBIN 10.4 g/dL (11.2-15.5); IMMATURE GRAN PERCENT AUTO 0.2 % (0.0-0.7); LYMPHOCYTES ABSOLUTE AUTO 2.13 K/uL (0.8-3.3); LYMPHOCYTES PERCENT AUTO 25.1 % (11.4-47.7); MEAN CORPUSCULAR HEMOGLOBIN 31.8 pg (31.6-35.5); MEAN CORPUSCULAR HGB CONC 34.1 g/dL (31.6-35.5); MEAN CORPUSCULAR VOLUME 93.3 fL (81.4-99.0); MONOCYTES ABSOLUTE AUTO 0.72 K/uL (0.20-0.90); MONOCYTES PERCENT AUTO 8.5 % (3.3-12.6); NEUTROPHILS ABSOLUTE AUTO 5.16 K/uL (1.0-7.6); NEUTROPHILS PERCENT AUTO 60.8 % (40.0-78.1); PLATELET COUNT,PLT 410 K/uL (130-375); RED BLOOD CELL COUNT 3.27 M/uL (3.77-5.24); WHITE BLOOD CELL COUNT,WBC 8.5 K/uL (3.2-11.0)
[2024-02-07] MEDS: Prochlorperazine 10 MG/2 ML SDV IVPUSH ONE (10:19)
[2024-02-07] MEDS: HYDROmorphone 0.5 MG/0.5 ML Syringe IVPUSH ONE (10:24)
[2024-02-07 10:26] LABS: IMMATURE GRAN ABSOLUTE AUTO 0.02 K/uL (0.00-0.23)
[2024-02-07 10:44] LABS: A/G RATIO 0.8 (1.2-2.2); ALANINE AMINOTRANSFERASE,ALT 36 U/L (12-78); ALBUMIN 2.8 g/dL (3.4-5.0); ALKALINE PHOSPHATASE 110 U/L (46-116); ASPARTATE AMNIOTRANSFERASE,AST 21 U/L (15-37); BILIRUBIN TOTAL 0.2 mg/dL (0.2-1.0); BLOOD UREA NITROGEN,BUN 19 mg/dL (7-18); CALCIUM 8.8 mg/dL (8.5-10.1); CARBON DIOXIDE,CO2 29 mmol/L (21-32); CHLORIDE,CL 102 mmol/L (100-108); CREATININE 0.7 mg/dL (0.6-1.0); EST CRCL DRUG DOSING (CG) 65.73 mL/min; ESTIMATED GFR 103 mL/min (>60); GLUCOSE RANDOM 101 mg/dL (74-106); POTASSIUM,K 3.1 mmol/L (3.6-5.2); PROTEIN TOTAL,TP 6.2 g/dL (6.4-8.2); SODIUM,NA 138 mmol/L (140-148)
[2024-02-07 10:47] LABS: ANION GAP 10.1 mmol/L (5.0-14.0)
[2024-02-07] MEDS: Iopamidol 612 MG/ML 100 ML Bottle IV SCH (12:05)
[2024-02-07] MEDS: Iopamidol 612 MG/ML 30 ML SDV PO ONE (12:05)
[2024-02-07] MEDS: Sodium Chloride 0.9% 10 ML Syringe FLUSH PRN (12:05)
[2024-02-07] MEDS: Sodium Chloride 0.9% 100 ML IV SCH (12:05)
[2024-02-07 14:16] VITALS: PULSE 90
== END 2024-02-07 14:16 | disposition home or self-care (01) ==
LOC: JP.ED 08:36
DX: T85.598A Other mechanical complication of other gastrointestinal prosthetic devices, implants and grafts, initial encounter (principal); I10 Essential (primary) hypertension; K21.9 Gastro-esophageal reflux disease without esophagitis; Z79.899 Other long term (current) drug therapy
CPT/HCPCS: 36415; 71045; 74177; 80053; 83605; 84484; 85025; 93005; 96374; 96375; 99284; J0780; J1170; J3490; J7030; Q9967

== ENCOUNTER 2024-02-28 22:59 | Emergency (ER) | payer BC, MEDICAID, OTHER ==
[2024-02-28] MEDS: HYDROmorphone 1 MG/ML Syringe IM ONE (23:35)
[2024-02-28] MEDS: droPERidol 5 MG/2 ML SDV IM ONE (23:37)
[2024-02-29] MEDS: HYDROmorphone 1 MG/ML Syringe IM ONE (00:33)
[2024-02-29] MEDS: Prochlorperazine 10 MG/2 ML SDV IM ONE (00:34)
[2024-02-29 01:16] VITALS: BP 99/68; PULSE 105
== END 2024-02-29 01:20 | disposition home or self-care (01) ==
LOC: JP.ED 22:59
DX: R10.84 Generalized abdominal pain (principal); I10 Essential (primary) hypertension; K21.9 Gastro-esophageal reflux disease without esophagitis; Z79.899 Other long term (current) drug therapy; Z90.49 Acquired absence of other specified parts of digestive tract; Z90.710 Acquired absence of both cervix and uterus; Z87.891 Personal history of nicotine dependence
CPT/HCPCS: 96372; 99283; J0780; J1171; J1790

== ENCOUNTER 2024-05-02 07:49 | Day surgery (SDC) | payer MEDICAID ==
[2024-05-02] MEDS ORDERED: Propofol 200 MG/20 ML SDV ONE (08:27)
[2024-05-02] MEDS ORDERED: fentaNYL 50 MCG/ML SDV ONE (08:27)
[2024-05-02] MEDS ORDERED: Midazolam 1 MG/ML 2 ML SDV ONE (08:27)
[2024-05-02] MEDS: Lactated Ringers 1,000 ML IV SCH (08:56)
[2024-05-02] MEDS: Cyanocobalamin (Vitamin B12) 1,000 MCG/ML SDV IM ONE (08:56)
[2024-05-02] MEDS: MVI, Adult with Vitamin K 10 ML, Thiamine 200 MG, Chromium/Copper/Mang/Selen/Zn 1 ML in... IV ONE (09:54)
[2024-05-02 10:56] VITALS: PULSE 88
[2024-05-02 11:38] VITALS: BP 112/75
== END 2024-05-02 12:45 | disposition home or self-care (01) ==
LOC: JP.SDS 07:49
PROVIDERS: ATTEND Surgery
DX: K20.90 Esophagitis, unspecified without bleeding (principal)
CPT/HCPCS: 00731; 43239; 43245; 88305; 88312; C1726; J2250; J2704; J3010; J3411; J3420; J7120

== ENCOUNTER 2024-05-30 14:59 | Emergency (ER) | payer MEDICAID | END 2024-05-30 15:15 | disposition left against medical advice (07) | LOC: JP.ED 14:59 | DX: Z53.21 Procedure and treatment not carried out due to patient leaving prior to being seen by health care provider (principal) ==

== ENCOUNTER 2024-06-17 13:20 | Emergency (ER) | payer MEDICAID ==
[2024-06-17] MEDS ORDERED: Naloxone 0.4 MG/ML SDV IVPUSH PRN (15:50)
[2024-06-17 16:05] LABS: BASOPHILS ABSOLUTE AUTO 0.03 K/uL (0.00-0.10); BASOPHILS PERCENT AUTO 0.3 % (0.1-1.3); EOSINOPHILS ABSOLUTE AUTO 0.03 K/uL (0.00-0.40); EOSINOPHILS PERCENT AUTO 0.3 % (0.0-5.4); HEMATOCRIT 37.4 % (34.3-46.0); IMMATURE GRAN ABSOLUTE AUTO 0.03 K/uL (0.00-0.23); IMMATURE GRAN PERCENT AUTO 0.3 % (0.0-0.7); LYMPHOCYTES ABSOLUTE AUTO 1.76 K/uL (0.8-3.3); LYMPHOCYTES PERCENT AUTO 19.5 % (11.4-47.7); MEAN CORPUSCULAR HEMOGLOBIN 33.2 pg (31.6-35.5); MEAN CORPUSCULAR HGB CONC 34.8 g/dL (31.6-35.5); MEAN CORPUSCULAR VOLUME 95.4 fL (81.4-99.0); MONOCYTES ABSOLUTE AUTO 0.53 K/uL (0.20-0.90); MONOCYTES PERCENT AUTO 5.9 % (3.3-12.6); NEUTROPHILS ABSOLUTE AUTO 6.64 K/uL (1.0-7.6); NEUTROPHILS PERCENT AUTO 73.7 % (40.0-78.1); PLATELET COUNT,PLT 397 K/uL (130-375); RED BLOOD CELL COUNT 3.92 M/uL (3.77-5.24)
[2024-06-17 16:35] LABS: ALANINE AMINOTRANSFERASE,ALT 39 U/L (12-78); ALKALINE PHOSPHATASE 117 U/L (46-116); ASPARTATE AMNIOTRANSFERASE,AST 18 U/L (15-37); BILIRUBIN TOTAL 0.3 mg/dL (0.2-1.0); BLOOD UREA NITROGEN,BUN 20 mg/dL (7-18); CALCIUM 9.5 mg/dL (8.5-10.1); CARBON DIOXIDE,CO2 28 mmol/L (21-32); CHLORIDE,CL 101 mmol/L (100-108); CREATININE 0.7 mg/dL (0.6-1.0); EST CRCL DRUG DOSING (CG) 68.37 mL/min; ESTIMATED GFR 103 mL/min (>60); GLUCOSE RANDOM 114 mg/dL (74-106); POTASSIUM,K 3.5 mmol/L (3.6-5.2); PROTEIN TOTAL,TP 7.9 g/dL (6.4-8.2); SODIUM,NA 140 mmol/L (140-148)
[2024-06-17 16:36] LABS: ANION GAP 14.5 mmol/L (5.0-14.0)
[2024-06-17] MEDS: Sodium Chloride 0.9% 1,000 ML IV ONE (17:33)
[2024-06-17] MEDS: HYDROmorphone 0.5 MG/0.5 ML Syringe IVPUSH PRN (17:34)
[2024-06-17] MEDS: Prochlorperazine 10 MG/2 ML SDV IVPUSH ONE (17:37)
[2024-06-17] MEDS: Sodium Chloride 0.9% 10 ML SDV FLUSH ONE (17:38)
[2024-06-17 18:29] VITALS: BP 108/76; PULSE 86
[2024-06-17] MEDS: Iopamidol 612 MG/ML 100 ML Bottle IV PRN (18:35)
[2024-06-17] MEDS: Sodium Chloride 0.9% 100 ML IV SCH (18:35)
== END 2024-06-17 20:04 | disposition home or self-care (01) ==
LOC: JP.ED 13:20
DX: R10.9 Unspecified abdominal pain (principal); G89.29 Other chronic pain; I10 Essential (primary) hypertension; K21.9 Gastro-esophageal reflux disease without esophagitis; Z90.49 Acquired absence of other specified parts of digestive tract; Z90.710 Acquired absence of both cervix and uterus; Z79.899 Other long term (current) drug therapy
CPT/HCPCS: 36415; 74177; 80053; 83605; 83690; 85025; 96361; 96374; 96375; 96376; 99284; J0780; J7030; Q9967

== ENCOUNTER 2024-06-25 11:33 | Emergency (ER) | payer MEDICAID ==
[2024-06-25 12:17] LABS: BASOPHILS ABSOLUTE AUTO 0.05 K/uL (0.00-0.10); BASOPHILS PERCENT AUTO 0.6 % (0.1-1.3); EOSINOPHILS PERCENT AUTO 2.3 % (0.0-5.4); HEMATOCRIT 36.3 % (34.3-46.0); HEMOGLOBIN 12.2 g/dL (11.2-15.5); IMMATURE GRAN PERCENT AUTO 0.2 % (0.0-0.7); LYMPHOCYTES ABSOLUTE AUTO 2.44 K/uL (0.8-3.3); LYMPHOCYTES PERCENT AUTO 28.3 % (11.4-47.7); MEAN CORPUSCULAR HEMOGLOBIN 33.2 pg (31.6-35.5); MEAN CORPUSCULAR HGB CONC 33.6 g/dL (31.6-35.5); MEAN CORPUSCULAR VOLUME 98.9 fL (81.4-99.0); MONOCYTES ABSOLUTE AUTO 0.98 K/uL (0.20-0.90); MONOCYTES PERCENT AUTO 11.4 % (3.3-12.6); NEUTROPHILS ABSOLUTE AUTO 4.94 K/uL (1.0-7.6); NEUTROPHILS PERCENT AUTO 57.2 % (40.0-78.1); PLATELET COUNT,PLT 404 K/uL (130-375); RED BLOOD CELL COUNT 3.67 M/uL (3.77-5.24); WHITE BLOOD CELL COUNT,WBC 8.6 K/uL (3.2-11.0)
[2024-06-25] MEDS: Sodium Chloride 0.9% 1,000 ML IV SCH (12:18)
[2024-06-25 12:21] LABS: IMMATURE GRAN ABSOLUTE AUTO 0.02 K/uL (0.00-0.23)
[2024-06-25] MEDS: HYDROmorphone 0.5 MG/0.5 ML Syringe IVPUSH ONE ×2 (12:27→14:54)
[2024-06-25] MEDS: Prochlorperazine 10 MG/2 ML SDV IVPUSH ONE (12:27)
[2024-06-25] MEDS: Scopalamine 1mg/3day Transdermal Patch TRDERM ONE (12:27)
[2024-06-25] MEDS: Sodium Chloride 0.9% 10 ML Syringe FLUSH PRN (12:28)
[2024-06-25 12:40] LABS: A/G RATIO 0.9 (1.2-2.2); ALANINE AMINOTRANSFERASE,ALT 17 U/L (12-78); ALBUMIN 3.2 g/dL (3.4-5.0); ALKALINE PHOSPHATASE 110 U/L (46-116); ANION GAP 12.1 mmol/L (5.0-14.0); ASPARTATE AMNIOTRANSFERASE,AST 12 U/L (15-37); BILIRUBIN TOTAL 0.2 mg/dL (0.2-1.0); BLOOD UREA NITROGEN,BUN 23 mg/dL (7-18); CALCIUM 8.9 mg/dL (8.5-10.1); CARBON DIOXIDE,CO2 29 mmol/L (21-32); CHLORIDE,CL 101 mmol/L (100-108); CREATININE 0.6 mg/dL (0.6-1.0); EST CRCL DRUG DOSING (CG) 82.34 mL/min; ESTIMATED GFR 107 mL/min (>60); GLUCOSE RANDOM 98 mg/dL (74-106); POTASSIUM,K 4.1 mmol/L (3.6-5.2); PROTEIN TOTAL,TP 6.9 g/dL (6.4-8.2); SODIUM,NA 138 mmol/L (140-148)
[2024-06-25] MEDS: MVI, Adult with Vitamin K 10 ML, Zinc/Copper/Manganese/Selenium 1 ML, Thiamine 200 MG i... IV ONE (13:39)
[2024-06-25 14:39] LABS: BILIRUBIN,URINE NEGATIVE (NEGATIVE); COLOR,URINE YELLOW (YELLOW); GLUCOSE,URINE NEGATIVE (NEGATIVE); KETONES,URINE NEGATIVE (NEGATIVE); LEUKOCYTE ESTERASE,URINE NEGATIVE (NEGATIVE); NITRITE,URINE NEGATIVE (NEGATIVE); OCCULT BLOOD,URINE NEGATIVE (NEGATIVE); PROTEIN,URINE NEGATIVE (NEGATIVE); UROBILINOGEN,URINE 0.2 EU/dL (0.2-1.0)
[2024-06-25 14:46] LABS: AMORPHOUS SEDIMENT,URINE NOT SEEN; APPEARANCE,URINE SLIGHTLY CLOUDY (CLEAR); BACTERIA,URINE FEW; EPITHELIAL CELLS,URINE FEW; MUCUS,URINE FEW; RBC,URINE 0-5 (0-5); WBC,URINE 0-5 (0-5)
[2024-06-25] MEDS: LORazepam 2 MG/ML SDV IVPUSH ONE (15:20)
[2024-06-25 15:33] VITALS: BP 91/50; PULSE 95
== END 2024-06-25 16:53 | disposition home or self-care (01) ==
LOC: JP.ED 11:33
DX: R11.2 Nausea with vomiting, unspecified (principal); R10.84 Generalized abdominal pain; I10 Essential (primary) hypertension; K21.9 Gastro-esophageal reflux disease without esophagitis; Z90.49 Acquired absence of other specified parts of digestive tract; Z87.891 Personal history of nicotine dependence; Z79.899 Other long term (current) drug therapy
CPT/HCPCS: 36415; 80053; 81001; 83605; 83690; 85025; 96361; 96365; 96366; 96375; 96376; 99284; A9270; J0780; J2060; J3411; J7030; J7120; J3490

== ENCOUNTER 2024-06-28 15:51 | Emergency (ER) | payer MEDICAID ==
[2024-06-28 15:59] VITALS: BP 130/91; PULSE 118
[2024-06-28] MEDS ORDERED: Sodium Chloride 0.9% 10 ML Syringe FLUSH PRN (16:56)
[2024-06-28 17:43] LABS: BASOPHILS ABSOLUTE AUTO 0.05 K/uL (0.00-0.10); BASOPHILS PERCENT AUTO 0.4 % (0.1-1.3); EOSINOPHILS PERCENT AUTO 0.2 % (0.0-5.4); HEMATOCRIT 34.7 % (34.3-46.0); HEMOGLOBIN 11.9 g/dL (11.2-15.5); IMMATURE GRAN ABSOLUTE AUTO 0.05 K/uL (0.00-0.23); IMMATURE GRAN PERCENT AUTO 0.4 % (0.0-0.7); MEAN CORPUSCULAR HEMOGLOBIN 33.3 pg (31.6-35.5); MEAN CORPUSCULAR HGB CONC 34.3 g/dL (31.6-35.5); MEAN CORPUSCULAR VOLUME 97.2 fL (81.4-99.0); MONOCYTES ABSOLUTE AUTO 0.85 K/uL (0.20-0.90); MONOCYTES PERCENT AUTO 6.8 % (3.3-12.6); NEUTROPHILS ABSOLUTE AUTO 9.54 K/uL (1.0-7.6); NEUTROPHILS PERCENT AUTO 76.2 % (40.0-78.1); PLATELET COUNT,PLT 399 K/uL (130-375); RED BLOOD CELL COUNT 3.57 M/uL (3.77-5.24); WHITE BLOOD CELL COUNT,WBC 12.5 K/uL (3.2-11.0)
[2024-06-28 17:44] LABS: EOSINOPHILS ABSOLUTE AUTO 0.02 K/uL (0.00-0.40)
[2024-06-28] MEDS: LORazepam 2 MG/ML SDV IVPUSH ONE (17:45)
[2024-06-28] MEDS: Lactated Ringers 1,000 ML IV ONE (17:46)
[2024-06-28] MEDS: HYDROmorphone 1 MG/ML Syringe IVPUSH ONE (17:46)
[2024-06-28] MEDS: HYDROmorphone 1 MG/ML Syringe IM ONE (17:46)
[2024-06-28] MEDS: LORazepam 2 MG/ML SDV IM ONE (17:47)
[2024-06-28 18:15] LABS: A/G RATIO 0.9 (1.2-2.2); ALANINE AMINOTRANSFERASE,ALT 16 U/L (12-78); ALBUMIN 3.3 g/dL (3.4-5.0); ALKALINE PHOSPHATASE 110 U/L (46-116); ANION GAP 12.6 mmol/L (5.0-14.0); ASPARTATE AMNIOTRANSFERASE,AST 14 U/L (15-37); BILIRUBIN TOTAL 0.3 mg/dL (0.2-1.0); BLOOD UREA NITROGEN,BUN 19 mg/dL (7-18); CALCIUM 9.3 mg/dL (8.5-10.1); CARBON DIOXIDE,CO2 28 mmol/L (21-32); CHLORIDE,CL 101 mmol/L (100-108); CREATININE 0.6 mg/dL (0.6-1.0); ESTIMATED GFR 107 mL/min (>60); GLUCOSE RANDOM 104 mg/dL (74-106); POTASSIUM,K 3.6 mmol/L (3.6-5.2); PROTEIN TOTAL,TP 7.1 g/dL (6.4-8.2); SODIUM,NA 138 mmol/L (140-148)
== END 2024-06-28 18:37 | disposition home or self-care (01) ==
LOC: JP.ED 15:51
DX: R10.84 Generalized abdominal pain (principal); I10 Essential (primary) hypertension; K21.9 Gastro-esophageal reflux disease without esophagitis; Z90.49 Acquired absence of other specified parts of digestive tract; Z90.710 Acquired absence of both cervix and uterus; Z79.899 Other long term (current) drug therapy; Z79.891 Long term (current) use of opiate analgesic
CPT/HCPCS: 36415; 80053; 83605; 84484; 85025; 96372; 99284; J1171; J2060

== ENCOUNTER 2024-07-11 09:47 | Emergency (ER) | payer MEDICAID ==
[2024-07-11] MEDS: Ondansetron 4 MG/2 ML SDV IM ONE (10:54)
[2024-07-11] MEDS: HYDROmorphone 1 MG/ML Syringe IM ONE (10:55)
[2024-07-11] MEDS: Scopalamine 1mg/3day Transdermal Patch TRDERM ONE (10:59)
[2024-07-11] MEDS: LORazepam 2 MG/ML SDV IM ONE ×2 (12:13→13:11)
[2024-07-11 12:52] LABS: BASOPHILS ABSOLUTE AUTO 0.05 K/uL (0.00-0.10); BASOPHILS PERCENT AUTO 0.5 % (0.1-1.3); EOSINOPHILS ABSOLUTE AUTO 0.06 K/uL (0.00-0.40); EOSINOPHILS PERCENT AUTO 0.6 % (0.0-5.4); HEMATOCRIT 32.2 % (34.3-46.0); HEMOGLOBIN 10.9 g/dL (11.2-15.5); IMMATURE GRAN ABSOLUTE AUTO 0.03 K/uL (0.00-0.23); IMMATURE GRAN PERCENT AUTO 0.3 % (0.0-0.7); LYMPHOCYTES ABSOLUTE AUTO 2.23 K/uL (0.8-3.3); LYMPHOCYTES PERCENT AUTO 23.4 % (11.4-47.7); MEAN CORPUSCULAR HGB CONC 33.9 g/dL (31.6-35.5); MEAN CORPUSCULAR VOLUME 97.6 fL (81.4-99.0); MONOCYTES ABSOLUTE AUTO 0.57 K/uL (0.20-0.90); NEUTROPHILS ABSOLUTE AUTO 6.57 K/uL (1.0-7.6); NEUTROPHILS PERCENT AUTO 69.2 % (40.0-78.1); PLATELET COUNT,PLT 551 K/uL (130-375); WHITE BLOOD CELL COUNT,WBC 9.5 K/uL (3.2-11.0)
[2024-07-11] MEDS: fentaNYL 50 MCG/ML SDV IM ONE (13:12)
[2024-07-11 13:13] LABS: A/G RATIO 0.8 (1.2-2.2); ALANINE AMINOTRANSFERASE,ALT 47 U/L (12-78); ALBUMIN 3.1 g/dL (3.4-5.0); ALKALINE PHOSPHATASE 97 U/L (46-116); ANION GAP 11.9 mmol/L (5.0-14.0); ASPARTATE AMNIOTRANSFERASE,AST 23 U/L (15-37); BILIRUBIN TOTAL 0.3 mg/dL (0.2-1.0); BLOOD UREA NITROGEN,BUN 15 mg/dL (7-18); CALCIUM 9.1 mg/dL (8.5-10.1); CARBON DIOXIDE,CO2 28 mmol/L (21-32); CHLORIDE,CL 99 mmol/L (100-108); CREATININE 0.5 mg/dL (0.6-1.0); EST CRCL DRUG DOSING (CG) 98.55 mL/min; ESTIMATED GFR 111 mL/min (>60); GLUCOSE RANDOM 94 mg/dL (74-106); POTASSIUM,K 3.9 mmol/L (3.6-5.2); PROTEIN TOTAL,TP 6.8 g/dL (6.4-8.2); SODIUM,NA 135 mmol/L (140-148)
[2024-07-11 14:06] VITALS: BP 104/78; PULSE 95
== END 2024-07-11 14:39 | disposition home or self-care (01) ==
LOC: JP.ED 09:47
DX: R10.84 Generalized abdominal pain (principal); R11.2 Nausea with vomiting, unspecified; I10 Essential (primary) hypertension; Z79.899 Other long term (current) drug therapy; Z90.49 Acquired absence of other specified parts of digestive tract; Z87.891 Personal history of nicotine dependence
CPT/HCPCS: 36415; 80053; 83605; 85025; 96372; 99284; A9270-GY; J1171; J2060; J2405; J3010

== ENCOUNTER 2024-07-12 06:55 | Day surgery (SDC) | payer MEDICAID ==
[2024-07-12] MEDS ORDERED: fentaNYL 100 MCG/2 ML SDV ONE (07:20)
[2024-07-12] MEDS ORDERED: Propofol 200 MG/20 ML SDV ONE (07:20)
[2024-07-12] MEDS ORDERED: Midazolam 1 MG/ML 2 ML SDV ONE (07:21)
[2024-07-12] MEDS: Lactated Ringers 1,000 ML IV SCH (07:24)
[2024-07-12 08:50] VITALS: BP 91/61; PULSE 84
== END 2024-07-12 09:00 | disposition home or self-care (01) ==
LOC: JP.SDS 06:55
PROVIDERS: ATTEND Surgery
DX: K22.81 Esophageal polyp (principal); K22.10 Ulcer of esophagus without bleeding; R13.10 Dysphagia, unspecified; K22.89 Other specified disease of esophagus
CPT/HCPCS: 00731; 43239; 43245; 88305; 88312; 88341; 88342; C1726; J2250; J2704; J3010; J7120

== ENCOUNTER 2024-08-07 11:24 | Emergency (ER) | payer MEDICAID ==
[2024-08-07 12:41] LABS: APPEARANCE,URINE CLOUDY (CLEAR); BILIRUBIN,URINE NEGATIVE (NEGATIVE); COLOR,URINE YELLOW (YELLOW); GLUCOSE,URINE NEGATIVE (NEGATIVE); KETONES,URINE NEGATIVE (NEGATIVE); LEUKOCYTE ESTERASE,URINE NEGATIVE (NEGATIVE); NITRITE,URINE NEGATIVE (NEGATIVE); OCCULT BLOOD,URINE NEGATIVE (NEGATIVE); PROTEIN,URINE NEGATIVE (NEGATIVE); UROBILINOGEN,URINE 0.2 EU/dL (0.2-1.0)
[2024-08-07 12:50] LABS: AMORPHOUS SEDIMENT,URINE MODERATE; BACTERIA,URINE FEW; EPITHELIAL CELLS,URINE FEW; MUCUS,URINE NOT SEEN; RBC,URINE 0-5 (0-5); WBC,URINE 0-5 (0-5)
[2024-08-07] MEDS ORDERED: Naloxone 0.4 MG/ML SDV IVPUSH PRN (12:54)
[2024-08-07 13:20] LABS: BASOPHILS ABSOLUTE AUTO 0.04 K/uL (0.00-0.10); BASOPHILS PERCENT AUTO 0.5 % (0.1-1.3); EOSINOPHILS ABSOLUTE AUTO 0.04 K/uL (0.00-0.40); EOSINOPHILS PERCENT AUTO 0.5 % (0.0-5.4); HEMATOCRIT 35.5 % (34.3-46.0); IMMATURE GRAN ABSOLUTE AUTO 0.03 K/uL (0.00-0.23); IMMATURE GRAN PERCENT AUTO 0.3 % (0.0-0.7); LYMPHOCYTES ABSOLUTE AUTO 2.49 K/uL (0.8-3.3); LYMPHOCYTES PERCENT AUTO 28.9 % (11.4-47.7); MEAN CORPUSCULAR HEMOGLOBIN 33.9 pg (31.6-35.5); MEAN CORPUSCULAR HGB CONC 33.8 g/dL (31.6-35.5); MEAN CORPUSCULAR VOLUME 100.3 fL (81.4-99.0); MONOCYTES ABSOLUTE AUTO 0.94 K/uL (0.20-0.90); MONOCYTES PERCENT AUTO 10.9 % (3.3-12.6); NEUTROPHILS ABSOLUTE AUTO 5.08 K/uL (1.0-7.6); NEUTROPHILS PERCENT AUTO 58.9 % (40.0-78.1); PLATELET COUNT,PLT 514 K/uL (130-375); RED BLOOD CELL COUNT 3.54 M/uL (3.77-5.24); WHITE BLOOD CELL COUNT,WBC 8.6 K/uL (3.2-11.0)
[2024-08-07] MEDS: Sodium Chloride 0.9% 1,000 ML IV ONE (13:49)
[2024-08-07] MEDS: Ondansetron 4 MG/2 ML SDV IVPUSH ONE (13:50)
[2024-08-07] MEDS: Ketorolac 30 MG/ML SDV IVPUSH ONE (13:50)
[2024-08-07] MEDS: HYDROmorphone 1 MG/ML Syringe IVPUSH PRN (13:51)
[2024-08-07 13:58] VITALS: BP 137/93; PULSE 106
[2024-08-07 13:58] LABS: A/G RATIO 0.8 (1.2-2.2); ALANINE AMINOTRANSFERASE,ALT 40 U/L (12-78); ALBUMIN 3.5 g/dL (3.4-5.0); ALKALINE PHOSPHATASE 116 U/L (46-116); ASPARTATE AMNIOTRANSFERASE,AST 14 U/L (15-37); BILIRUBIN TOTAL 0.5 mg/dL (0.2-1.0); BLOOD UREA NITROGEN,BUN 15 mg/dL (7-18); CALCIUM 9.7 mg/dL (8.5-10.1); CHLORIDE,CL 98 mmol/L (100-108); CREATININE 0.6 mg/dL (0.6-1.0); EST CRCL DRUG DOSING (CG) 84.43 mL/min; ESTIMATED GFR 107 mL/min (>60); GLUCOSE RANDOM 94 mg/dL (74-106); POTASSIUM,K 3.4 mmol/L (3.6-5.2); PROTEIN TOTAL,TP 7.7 g/dL (6.4-8.2); SODIUM,NA 139 mmol/L (140-148)
[2024-08-07 14:50] LABS: CARBON DIOXIDE,CO2 26 mmol/L (21-32)
[2024-08-07 14:51] LABS: ANION GAP 18.4 mmol/L (5.0-14.0)
== END 2024-08-07 15:11 | disposition home or self-care (01) ==
LOC: JP.ED 11:24
DX: N20.0 Calculus of kidney (principal); I10 Essential (primary) hypertension; Z79.899 Other long term (current) drug therapy
CPT/HCPCS: 36415; 74176; 80053; 81001; 83690; 84145; 85025; 96361; 96374; 96375; 99284; J1171; J1885; J2405; J7030; 99283

== ENCOUNTER 2024-09-04 06:48 | Day surgery (SDC) | payer BC, MEDICAID ==
[2024-09-04] MEDS: Lactated Ringers 1,000 ML IV ONE (07:22)
[2024-09-04] MEDS ORDERED: Propofol 200 MG/20 ML SDV ONE (07:26)
[2024-09-04] MEDS ORDERED: fentaNYL 100 MCG/2 ML SDV ONE (07:26)
[2024-09-04] MEDS ORDERED: Midazolam 1 MG/ML 2 ML SDV ONE (07:26)
[2024-09-04] MEDS: Cyanocobalamin (Vitamin B12) 1,000 MCG/ML SDV IM ONE (07:28)
[2024-09-04] MEDS: MVI, Adult with Vitamin K 10 ML, Zinc/Copper/Manganese/Selenium 1 ML, Thiamine 200 MG i... IV ONE (08:15)
[2024-09-04] MEDS: Lidocaine 2% 60 ML, Alum Hydrox/Mag Hydrox/Simeth 360 ML PO PRN (09:51)
[2024-09-04 09:59] VITALS: BP 138/96; PULSE 84
== END 2024-09-04 10:15 | disposition home or self-care (01) ==
LOC: JP.SDS 06:48
PROVIDERS: ATTEND Surgery
DX: R10.13 Epigastric pain (principal)
CPT/HCPCS: 00731-QZ; A9270-GY; J2250; J2704; J3010; J3411; J3420; J3490; J7120

== ENCOUNTER 2024-09-08 12:21 | Emergency (ER) | payer MEDICAID ==
[2024-09-08 12:35] VITALS: BP 106/80; PULSE 111
== END 2024-09-08 13:15 | disposition home or self-care (01) ==
LOC: JP.ED 12:21
DX: K03.81 Cracked tooth (principal); I10 Essential (primary) hypertension; K21.9 Gastro-esophageal reflux disease without esophagitis; Z90.49 Acquired absence of other specified parts of digestive tract; Z90.710 Acquired absence of both cervix and uterus; Z79.899 Other long term (current) drug therapy
CPT/HCPCS: 99283

== ENCOUNTER 2024-10-18 11:47 | Emergency (ER) | payer MEDICAID ==
[2024-10-18 12:01] VITALS: PULSE 110
[2024-10-18] MEDS ORDERED: Naloxone 0.4 MG/ML SDV IVPUSH PRN ×2 (12:22→12:54)
[2024-10-18] MEDS: Prochlorperazine 10 MG/2 ML SDV IVPUSH ONE (12:36)
[2024-10-18] MEDS: HYDROmorphone 0.5 MG/0.5 ML Syringe IVPUSH ONE ×2 (12:36→12:58)
[2024-10-18 12:48] LABS: BASOPHILS ABSOLUTE AUTO 0.05 K/uL (0.00-0.10); BASOPHILS PERCENT AUTO 0.5 % (0.1-1.3); HEMATOCRIT 40.3 % (34.3-46.0); IMMATURE GRAN ABSOLUTE AUTO 0.03 K/uL (0.00-0.23); IMMATURE GRAN PERCENT AUTO 0.3 % (0.0-0.7); LYMPHOCYTES ABSOLUTE AUTO 3.02 K/uL (0.8-3.3); LYMPHOCYTES PERCENT AUTO 28.2 % (11.4-47.7); MEAN CORPUSCULAR HEMOGLOBIN 34.4 pg (31.6-35.5); MEAN CORPUSCULAR HGB CONC 34.7 g/dL (31.6-35.5); MONOCYTES ABSOLUTE AUTO 1.14 K/uL (0.20-0.90); MONOCYTES PERCENT AUTO 10.7 % (3.3-12.6); NEUTROPHILS ABSOLUTE AUTO 6.46 K/uL (1.0-7.6); NEUTROPHILS PERCENT AUTO 60.3 % (40.0-78.1); PLATELET COUNT,PLT 500 K/uL (130-375); RED BLOOD CELL COUNT 4.07 M/uL (3.77-5.24); WHITE BLOOD CELL COUNT,WBC 10.7 K/uL (3.2-11.0)
[2024-10-18] MEDS: HYDROmorphone 0.5 MG/0.5 ML Syringe ONE (13:00)
[2024-10-18 13:08] LABS: A/G RATIO 0.9 (1.2-2.2); ALANINE AMINOTRANSFERASE,ALT 25 U/L (12-78); ALBUMIN 3.8 g/dL (3.4-5.0); ALKALINE PHOSPHATASE 97 U/L (46-116); ANION GAP 15.5 mmol/L (5.0-14.0); ASPARTATE AMNIOTRANSFERASE,AST 14 U/L (15-37); BILIRUBIN TOTAL 0.4 mg/dL (0.2-1.0); BLOOD UREA NITROGEN,BUN 32 mg/dL (7-18); CALCIUM 10.1 mg/dL (8.5-10.1); CARBON DIOXIDE,CO2 26 mmol/L (21-32); CHLORIDE,CL 97 mmol/L (100-108); CREATININE 0.9 mg/dL (0.6-1.0); ESTIMATED GFR 76 mL/min (>60); GLUCOSE RANDOM 119 mg/dL (74-106); POTASSIUM,K 3.5 mmol/L (3.6-5.2); SODIUM,NA 135 mmol/L (140-148)
[2024-10-18 13:09] LABS: C-REACTIVE PROTEIN < 0.50 mg/dL (<0.50)
[2024-10-18] MEDS: Sodium Chloride 0.9% 10 ML Syringe FLUSH PRN (13:10)
[2024-10-18] MEDS: Iopamidol 612 MG/ML 100 ML Bottle IV PRN (13:11)
[2024-10-18] MEDS: Sodium Chloride 0.9% 80 ML IV SCH (13:11)
[2024-10-18] MEDS: Sodium Chloride 0.9% 1,000 ML IV SCH (13:45)
[2024-10-18] MEDS: Ondansetron 4 MG/2 ML SDV IVPUSH ONE (14:26)
[2024-10-18 14:58] VITALS: BP 103/65
== END 2024-10-18 15:00 | disposition home or self-care (01) ==
LOC: JP.ED 11:47
DX: R11.2 Nausea with vomiting, unspecified (principal); I10 Essential (primary) hypertension; Z90.49 Acquired absence of other specified parts of digestive tract; Z79.899 Other long term (current) drug therapy
CPT/HCPCS: 36415; 74177; 80053; 83605; 83690; 85025; 86140; 96361; 96374; 96375; 99284; J0780; J2405; J7030; Q9967

== ENCOUNTER 2024-11-04 06:20 | Day surgery (SDC) | payer MEDICAID ==
[2024-11-04] MEDS ORDERED: fentaNYL 50 MCG/ML SDV ONE (07:01)
[2024-11-04] MEDS ORDERED: Propofol 200 MG/20 ML SDV ONE ×2 (07:01→08:03)
[2024-11-04] MEDS: Lactated Ringers 1,000 ML IV ONE (07:12)
[2024-11-04] MEDS: Cyanocobalamin (Vitamin B12) 1,000 MCG/ML SDV IM ONE (07:21)
[2024-11-04 08:22] LABS: BASOPHILS ABSOLUTE AUTO 0.06 K/uL (0.00-0.10); BASOPHILS PERCENT AUTO 0.8 % (0.1-1.3); EOSINOPHILS ABSOLUTE AUTO 0.16 K/uL (0.00-0.40); EOSINOPHILS PERCENT AUTO 2.1 % (0.0-5.4); HEMATOCRIT 31.7 % (34.3-46.0); HEMOGLOBIN 10.7 g/dL (11.2-15.5); IMMATURE GRAN PERCENT AUTO 0.3 % (0.0-0.7); LYMPHOCYTES ABSOLUTE AUTO 2.21 K/uL (0.8-3.3); LYMPHOCYTES PERCENT AUTO 28.9 % (11.4-47.7); MEAN CORPUSCULAR HEMOGLOBIN 34.3 pg (31.6-35.5); MEAN CORPUSCULAR HGB CONC 33.8 g/dL (31.6-35.5); MEAN CORPUSCULAR VOLUME 101.6 fL (81.4-99.0); MONOCYTES ABSOLUTE AUTO 0.53 K/uL (0.20-0.90); MONOCYTES PERCENT AUTO 6.9 % (3.3-12.6); NEUTROPHILS ABSOLUTE AUTO 4.67 K/uL (1.0-7.6); PLATELET COUNT,PLT 392 K/uL (130-375); RED BLOOD CELL COUNT 3.12 M/uL (3.77-5.24); WHITE BLOOD CELL COUNT,WBC 7.7 K/uL (3.2-11.0)
[2024-11-04 08:27] LABS: IMMATURE GRAN ABSOLUTE AUTO 0.02 K/uL (0.00-0.23)
[2024-11-04 09:21] LABS: ALANINE AMINOTRANSFERASE,ALT 22 U/L (12-78); ALBUMIN 2.9 g/dL (3.4-5.0); ALKALINE PHOSPHATASE 105 U/L (46-116); ASPARTATE AMNIOTRANSFERASE,AST 10 U/L (15-37); BILIRUBIN TOTAL 0.4 mg/dL (0.2-1.0); BLOOD UREA NITROGEN,BUN 24 mg/dL (7-18); CALCIUM 9.2 mg/dL (8.5-10.1); CARBON DIOXIDE,CO2 30 mmol/L (21-32); CHLORIDE,CL 101 mmol/L (100-108); CREATININE 0.5 mg/dL (0.6-1.0); EST CRCL DRUG DOSING (CG) 99.01 mL/min; ESTIMATED GFR 111 mL/min (>60); FERRITIN 107 ng/ml (8-388); GLUCOSE RANDOM 107 mg/dL (74-106); MAGNESIUM 1.7 mg/dL (1.8-2.4); POTASSIUM,K 3.6 mmol/L (3.6-5.2); PROTEIN TOTAL,TP 5.8 g/dL (6.4-8.2); SODIUM,NA 136 mmol/L (140-148)
[2024-11-04 09:25] LABS: ANION GAP 8.6 mmol/L (5.0-14.0)
[2024-11-04 09:34] VITALS: PULSE 89
[2024-11-04 09:40] VITALS: BP 103/74
[2024-11-04] MEDS: MVI, Adult with Vitamin K 10 ML, Thiamine 200 MG, Zinc/Copper/Manganese/Selenium 1 ML i... IV ONE (10:01)
[2024-11-06 07:15] LABS: COPPER,SERUM/PLASMA 94.3 ug/dL (80.0-155.0); SELENIUM, SERUM/PLASMA 101.6 ug/L (23.0-190.0)
[2024-11-07 07:32] LABS: VITAMIN A (RETINYL PALMITATE) <0.02 mg/L (0.00-0.10); VITAMIN A,SER/PLA - INTERP Normal; VITAMIN E (ALPHA-TOCOPHEROL) 8.4 mg/L (5.5-18.0); VITAMIN E (GAMMA-TOCOPHEROL) 0.9 mg/L (0.0-6.0)
[2024-11-08 10:22] LABS: VITAMIN K1 4.53 nmol/L (0.22-4.88)
[2024-11-09 01:44] LABS: 25-HYDROXYVITAMIN D2 <1.0 ng/mL; 25-HYDROXYVITAMIN D2 D3 TOTAL 28.1 ng/mL (30.0-80.0); 25-HYDROXYVITAMIN D3 28.1 ng/mL
[2024-11-11 10:12] LABS: VITAMIN B1,WHOLE BLOOD 213 nmol/L (70-180)
[2024-11-11 15:41] LABS: VITAMIN C, PLASMA 49 umol/L (23-114)
== END 2024-11-04 10:10 | disposition home or self-care (01) ==
LOC: JP.SDS 06:20
PROVIDERS: ATTEND Surgery
DX: R13.10 Dysphagia, unspecified (principal); E11.9 Type 2 diabetes mellitus without complications
CPT/HCPCS: 00731; 36415; 43239; 43249; 80053; 82180; 82306; 82525; 82607; 82728; 83735; 84255; 84425; 84446; 84590; 84597; 84630; 85025; C1726; J2704; J3010; J3411; J3420; J7120; 88305; 88312; 88341; 88342; J3490

== ENCOUNTER 2024-11-11 11:55 | Emergency (ER) | payer MEDICAID ==
[2024-11-11 12:42] VITALS: BP 97/59; PULSE 118
[2024-11-11] MEDS: droPERidol 5 MG/2 ML SDV IVPUSH ONE (13:19)
[2024-11-11] MEDS: Sodium Chloride 0.9% 1,000 ML IV ONE (13:19)
[2024-11-11 13:24] LABS: BASOPHILS ABSOLUTE AUTO 0.04 K/uL (0.00-0.10); BASOPHILS PERCENT AUTO 0.3 % (0.1-1.3); EOSINOPHILS ABSOLUTE AUTO 0.03 K/uL (0.00-0.40); EOSINOPHILS PERCENT AUTO 0.2 % (0.0-5.4); HEMATOCRIT 31.7 % (34.3-46.0); HEMOGLOBIN 10.7 g/dL (11.2-15.5); IMMATURE GRAN ABSOLUTE AUTO 0.13 K/uL (0.00-0.23); IMMATURE GRAN PERCENT AUTO 0.9 % (0.0-0.7); LYMPHOCYTES ABSOLUTE AUTO 1.16 K/uL (0.8-3.3); LYMPHOCYTES PERCENT AUTO 7.6 % (11.4-47.7); MEAN CORPUSCULAR HEMOGLOBIN 34.1 pg (31.6-35.5); MEAN CORPUSCULAR HGB CONC 33.8 g/dL (31.6-35.5); MONOCYTES ABSOLUTE AUTO 1.84 K/uL (0.20-0.90); MONOCYTES PERCENT AUTO 12.1 % (3.3-12.6); NEUTROPHILS ABSOLUTE AUTO 12.04 K/uL (1.0-7.6); NEUTROPHILS PERCENT AUTO 78.9 % (40.0-78.1); PLATELET COUNT,PLT 407 K/uL (130-375); RED BLOOD CELL COUNT 3.14 M/uL (3.77-5.24); WHITE BLOOD CELL COUNT,WBC 15.2 K/uL (3.2-11.0)
[2024-11-11 13:31] LABS: BLOOD UREA NITROGEN,BUN 14 mg/dL (7-18); CREATININE 0.7 mg/dL (0.6-1.0); ESTIMATED GFR 103 mL/min (>60)
[2024-11-11 13:49] LABS: A/G RATIO 0.7 (1.2-2.2); ALANINE AMINOTRANSFERASE,ALT 76 U/L (12-78); ALBUMIN 2.5 g/dL (3.4-5.0); ALKALINE PHOSPHATASE 87 U/L (46-116); ASPARTATE AMNIOTRANSFERASE,AST 89 U/L (15-37); BILIRUBIN TOTAL 0.4 mg/dL (0.2-1.0); CARBON DIOXIDE,CO2 26 mmol/L (21-32); CHLORIDE,CL 98 mmol/L (100-108); GLUCOSE RANDOM 115 mg/dL (74-106); POTASSIUM,K 3.1 mmol/L (3.6-5.2); PROTEIN TOTAL,TP 6.2 g/dL (6.4-8.2); SODIUM,NA 136 mmol/L (140-148)
[2024-11-11 13:50] LABS: ANION GAP 15.1 mmol/L (5.0-14.0)
[2024-11-11 14:53] LABS: APPEARANCE,URINE CLEAR (CLEAR); BILIRUBIN,URINE NEGATIVE (NEGATIVE); COLOR,URINE YELLOW (YELLOW); GLUCOSE,URINE NEGATIVE (NEGATIVE); KETONES,URINE NEGATIVE (NEGATIVE); LEUKOCYTE ESTERASE,URINE MODERATE (NEGATIVE); NITRITE,URINE NEGATIVE (NEGATIVE); OCCULT BLOOD,URINE NEGATIVE (NEGATIVE); PH,URINE 7.5 (5.0-8.0); PROTEIN,URINE 30 mg/dL (NEGATIVE)
[2024-11-11 15:00] LABS: RBC,URINE 0-5 (0-5)
[2024-11-11 15:01] LABS: AMORPHOUS SEDIMENT,URINE NOT SEEN; BACTERIA,URINE RARE; EPITHELIAL CELLS,URINE FEW; MUCUS,URINE NOT SEEN
[2024-11-11 15:41] LABS: AMPHETAMINES SCREEN, URINE NEGATIVE (NEGATIVE); BARBITURATE SCREEN,URINE NEGATIVE (NEGATIVE); BENZODIAZEPINES SCREEN,URINE PRESUMPTIVE POSITIVE (NEGATIVE); METHADONE SCREEN, URINE NEGATIVE (NEGATIVE); METHAMPHETAMINES SCREEN, URINE NEGATIVE (NEGATIVE); OXYCODONE SCREEN,URINE PRESUMPTIVE POSITIVE (NEGATIVE); PROPOXYPHENE SCREEN,URINE NEGATIVE (NEGATIVE); THC SCREEN,URINE 50 NG/ML NEGATIVE (NEGATIVE)
[2024-11-11] MEDS ORDERED: Sodium Chloride 0.9% 1,000 ML IV ONE (16:20)
[2024-11-11] MEDS ORDERED: HYDROmorphone 0.5 MG/0.5 ML Syringe IVPUSH ONE (16:21)
[2024-11-11] MEDS ORDERED: Piperacillin/Tazobactam 4.5 GM in Sodium Chloride 0.9% 100 ML IV ONE (16:24)
[2024-11-11] MEDS ORDERED: Iopamidol 612 MG/ML 100 ML Bottle IV SCH (16:45)
[2024-11-11] MEDS ORDERED: Sodium Chloride 0.9% 80 ML IV SCH (16:45)
== END 2024-11-11 16:44 | disposition left against medical advice (07) ==
LOC: JP.ED 11:55
DX: R11.2 Nausea with vomiting, unspecified (principal); R10.84 Generalized abdominal pain; R55 Syncope and collapse; E86.0 Dehydration; D72.829 Elevated white blood cell count, unspecified; K21.9 Gastro-esophageal reflux disease without esophagitis; Z90.49 Acquired absence of other specified parts of digestive tract; Z90.710 Acquired absence of both cervix and uterus; Z53.29 Procedure and treatment not carried out because of patient's decision for other reasons; Z79.899 Other long term (current) drug therapy
CPT/HCPCS: 36415; 70450; 72125; 76377; 80053; 80305; 81001; 83605; 85025; 87040; 87086; 93005; 93010; 96361; 96374; 99284; J1790; J7030

== ENCOUNTER 2024-12-02 13:38 | Emergency (ER) | payer MEDICAID ==
[2024-12-02] MEDS: Ondansetron 4 MG/2 ML SDV IVPUSH ONE (15:20)
[2024-12-02] MEDS: Ondansetron 4 MG/2 ML SDV IM ONE (15:24)
[2024-12-02 15:54] LABS: BASOPHILS ABSOLUTE AUTO 0.05 K/uL (0.00-0.10); BASOPHILS PERCENT AUTO 0.5 % (0.1-1.3); EOSINOPHILS PERCENT AUTO 0.2 % (0.0-5.4); IMMATURE GRAN ABSOLUTE AUTO 0.04 K/uL (0.00-0.23); IMMATURE GRAN PERCENT AUTO 0.4 % (0.0-0.7); LYMPHOCYTES ABSOLUTE AUTO 3.93 K/uL (0.8-3.3); LYMPHOCYTES PERCENT AUTO 36.6 % (11.4-47.7); MONOCYTES ABSOLUTE AUTO 1.19 K/uL (0.20-0.90); MONOCYTES PERCENT AUTO 11.1 % (3.3-12.6); NEUTROPHILS ABSOLUTE AUTO 5.50 K/uL (1.0-7.6); NEUTROPHILS PERCENT AUTO 51.2 % (40.0-78.1); PLATELET COUNT,PLT 486 K/uL (130-375); RED BLOOD CELL COUNT 3.72 M/uL (3.77-5.24); WHITE BLOOD CELL COUNT,WBC 10.7 K/uL (3.2-11.0)
[2024-12-02 16:12] LABS: EOSINOPHILS ABSOLUTE AUTO 0.02 K/uL (0.00-0.40)
[2024-12-02 16:14] LABS: A/G RATIO 0.9 (1.2-2.2); ALANINE AMINOTRANSFERASE,ALT 15 U/L (12-78); ASPARTATE AMNIOTRANSFERASE,AST 13 U/L (15-37); BILIRUBIN TOTAL 0.6 mg/dL (0.2-1.0); BLOOD UREA NITROGEN,BUN 27 mg/dL (7-18); CARBON DIOXIDE,CO2 26 mmol/L (21-32); CHLORIDE,CL 96 mmol/L (100-108); CREATININE 0.7 mg/dL (0.6-1.0); EST CRCL DRUG DOSING (CG) 74.34 mL/min; ESTIMATED GFR 103 mL/min (>60); GLUCOSE RANDOM 106 mg/dL (74-106); PROTEIN TOTAL,TP 7.4 g/dL (6.4-8.2); SODIUM,NA 135 mmol/L (140-148)
[2024-12-02 16:16] LABS: POTASSIUM,K 2.6 mmol/L (3.6-5.2)
[2024-12-02] MEDS: Potassium Chloride 20 MEQ in Premix Bag 1 BAG IV ONE (16:46)
[2024-12-02 17:34] VITALS: BP 93/65; PULSE 112
== END 2024-12-02 19:31 | disposition home or self-care (01) ==
LOC: JP.ED 13:38
DX: R10.9 Unspecified abdominal pain (principal); G89.29 Other chronic pain; F11.23 Opioid dependence with withdrawal; I10 Essential (primary) hypertension; K21.9 Gastro-esophageal reflux disease without esophagitis; Z87.891 Personal history of nicotine dependence; Z90.49 Acquired absence of other specified parts of digestive tract; Z90.710 Acquired absence of both cervix and uterus; Z79.899 Other long term (current) drug therapy
CPT/HCPCS: 36415; 80053; 83605; 85025; 96361; 96365; 96366; 96375; 96376; 99284-25; A9270-GY; J1171; J2405; J3480; J7030

== ENCOUNTER 2025-01-13 15:03 | Emergency (ER) | payer MEDICAID ==
[2025-01-13] MEDS: diphenhydrAMINE 50 MG/ML SDV IM ONE (16:01)
[2025-01-13 16:33] LABS: BASOPHILS ABSOLUTE AUTO 0.03 K/uL (0.00-0.10); BASOPHILS PERCENT AUTO 0.4 % (0.1-1.3); EOSINOPHILS PERCENT AUTO 0.0 % (0.0-5.4); IMMATURE GRAN PERCENT AUTO 0.2 % (0.0-0.7); LYMPHOCYTES ABSOLUTE AUTO 1.51 K/uL (0.8-3.3); LYMPHOCYTES PERCENT AUTO 18.0 % (11.4-47.7); MONOCYTES ABSOLUTE AUTO 0.68 K/uL (0.20-0.90); MONOCYTES PERCENT AUTO 8.1 % (3.3-12.6); NEUTROPHILS ABSOLUTE AUTO 6.15 K/uL (1.0-7.6); NEUTROPHILS PERCENT AUTO 73.3 % (40.0-78.1); PLATELET COUNT,PLT 475 K/uL (130-375); RED BLOOD CELL COUNT 3.56 M/uL (3.77-5.24); WHITE BLOOD CELL COUNT,WBC 8.4 K/uL (3.2-11.0)
[2025-01-13 16:48] VITALS: BP 116/81; PULSE 102
[2025-01-13 16:57] LABS: EOSINOPHILS ABSOLUTE AUTO 0.00 K/uL (0.00-0.40); IMMATURE GRAN ABSOLUTE AUTO 0.02 K/uL (0.00-0.23)
[2025-01-13 17:03] LABS: A/G RATIO 1.0 (1.2-2.2); ALANINE AMINOTRANSFERASE,ALT 18 U/L (12-78); ASPARTATE AMNIOTRANSFERASE,AST 12 U/L (15-37); BILIRUBIN TOTAL 0.4 mg/dL (0.2-1.0); BLOOD UREA NITROGEN,BUN 17 mg/dL (7-18); CARBON DIOXIDE,CO2 24 mmol/L (21-32); CHLORIDE,CL 101 mmol/L (100-108); CREATININE 0.5 mg/dL (0.6-1.0); EST CRCL DRUG DOSING (CG) 93.81 mL/min; ESTIMATED GFR 111 mL/min (>60); GLUCOSE RANDOM 108 mg/dL (74-106); POTASSIUM,K 3.2 mmol/L (3.6-5.2); PROTEIN TOTAL,TP 7.8 g/dL (6.4-8.2); SODIUM,NA 138 mmol/L (140-148)
== END 2025-01-13 17:57 | disposition home or self-care (01) ==
LOC: JP.ED 15:03
DX: R10.84 Generalized abdominal pain (principal); R11.2 Nausea with vomiting, unspecified; I10 Essential (primary) hypertension; Z90.49 Acquired absence of other specified parts of digestive tract; Z90.710 Acquired absence of both cervix and uterus; Z79.899 Other long term (current) drug therapy
CPT/HCPCS: 36415; 74176; 80053; 85025; 96372; 99284; J1171; J1200; J1790

== ENCOUNTER 2025-01-24 16:34 | Emergency (ER) | payer MEDICAID ==
[2025-01-24 17:22] VITALS: PULSE 105
[2025-01-24 17:39] LABS: BASOPHILS ABSOLUTE AUTO 0.04 K/uL (0.00-0.10); BASOPHILS PERCENT AUTO 0.4 % (0.1-1.3); EOSINOPHILS ABSOLUTE AUTO 0.10 K/uL (0.00-0.40); EOSINOPHILS PERCENT AUTO 1.1 % (0.0-5.4); IMMATURE GRAN ABSOLUTE AUTO 0.04 K/uL (0.00-0.23); IMMATURE GRAN PERCENT AUTO 0.4 % (0.0-0.7); LYMPHOCYTES ABSOLUTE AUTO 3.33 K/uL (0.8-3.3); LYMPHOCYTES PERCENT AUTO 35.6 % (11.4-47.7); MONOCYTES ABSOLUTE AUTO 0.92 K/uL (0.20-0.90); MONOCYTES PERCENT AUTO 9.8 % (3.3-12.6); NEUTROPHILS ABSOLUTE AUTO 4.92 K/uL (1.0-7.6); NEUTROPHILS PERCENT AUTO 52.7 % (40.0-78.1); PLATELET COUNT,PLT 505 K/uL (130-375); RED BLOOD CELL COUNT 3.68 M/uL (3.77-5.24); WHITE BLOOD CELL COUNT,WBC 9.4 K/uL (3.2-11.0)
[2025-01-24 17:56] LABS: INR 1.0
[2025-01-24 18:01] LABS: A/G RATIO 1.0 (1.2-2.2); ALANINE AMINOTRANSFERASE,ALT 21 U/L (12-78); ASPARTATE AMNIOTRANSFERASE,AST 15 U/L (15-37); BILIRUBIN TOTAL 0.2 mg/dL (0.2-1.0); BLOOD UREA NITROGEN,BUN 20 mg/dL (7-18); CARBON DIOXIDE,CO2 28 mmol/L (21-32); CHLORIDE,CL 97 mmol/L (100-108); CREATININE 0.6 mg/dL (0.6-1.0); EST CRCL DRUG DOSING (CG) 74.79 mL/min; ESTIMATED GFR 107 mL/min (>60); GLUCOSE RANDOM 105 mg/dL (74-106); PROTEIN TOTAL,TP 6.6 g/dL (6.4-8.2); SODIUM,NA 135 mmol/L (140-148)
[2025-01-24 18:04] LABS: POTASSIUM,K 2.8 mmol/L (3.6-5.2)
[2025-01-24] MEDS ORDERED: Naloxone 0.4 MG/ML SDV IVPUSH PRN (18:30)
[2025-01-24] MEDS: Potassium Chloride 20 MEQ Tab.ER PO ONE (18:40)
[2025-01-24] MEDS: Potassium Chloride 20 MEQ in Premix Bag 1 BAG IV ONE (18:43)
[2025-01-24] MEDS ORDERED: Acetaminophen Soln 650 MG/20.3 ML UD Cup PO PRN (20:30)
[2025-01-24 20:51] VITALS: BP 90/64
== END 2025-01-24 21:06 | disposition home or self-care (01) ==
LOC: JP.ED 16:34
DX: M25.512 Pain in left shoulder (principal); E87.6 Hypokalemia; I10 Essential (primary) hypertension; Z79.899 Other long term (current) drug therapy; Z90.710 Acquired absence of both cervix and uterus; Z90.49 Acquired absence of other specified parts of digestive tract; W19.XXXA Unspecified fall, initial encounter
CPT/HCPCS: 36415; 73030; 80053; 80307; 83690; 83735; 85025; 85610; 96365; 96366; 96372; 99283; 99284; A9270; J1171; J3480; J7030

== ENCOUNTER 2025-01-27 13:01 | Emergency (ER) | payer MEDICAID ==
[2025-01-27 13:36] VITALS: BP 106/72; PULSE 95
[2025-01-27] MEDS: diphenhydrAMINE 50 MG/ML SDV IM ONE (13:57)
[2025-01-27] MEDS: Ketorolac 30 MG/ML SDV IM ONE (14:27)
== END 2025-01-27 15:37 | disposition home or self-care (01) ==
LOC: JP.ED 13:01
DX: R10.84 Generalized abdominal pain (principal); I10 Essential (primary) hypertension; Z79.899 Other long term (current) drug therapy; Z90.710 Acquired absence of both cervix and uterus
CPT/HCPCS: 96372; 99283; J1200; J1790; J1885; 99284

== ENCOUNTER 2025-03-22 13:32 | Emergency (ER) | payer MEDICAID ==
[2025-03-22 13:38] VITALS: BP 98/68; PULSE 127
== END 2025-03-22 13:54 | disposition left against medical advice (07) ==
LOC: JP.ED 13:32
DX: Z53.21 Procedure and treatment not carried out due to patient leaving prior to being seen by health care provider (principal)

== ENCOUNTER 2025-04-15 10:42 | Emergency (ER) | payer MEDICAID ==
[2025-04-15 11:23] VITALS: BP 115/80; PULSE 117
[2025-04-15 11:40] LABS: APPEARANCE,URINE CLOUDY (CLEAR); GLUCOSE,URINE NEGATIVE (NEGATIVE); OCCULT BLOOD,URINE NEGATIVE (NEGATIVE)
[2025-04-15 11:47] LABS: SQUAMOUS EPITHELIAL CELLS,UR MANY /HPF
[2025-04-15 11:48] LABS: AMPHETAMINES SCREEN, URINE NEGATIVE (NEGATIVE); METHADONE SCREEN, URINE PRESUMPTIVE POSITIVE (NEGATIVE); METHAMPHETAMINES SCREEN, URINE NEGATIVE (NEGATIVE); OXYCODONE SCREEN,URINE NEGATIVE (NEGATIVE); PROPOXYPHENE SCREEN,URINE NEGATIVE (NEGATIVE); THC SCREEN,URINE 50 NG/ML NEGATIVE (NEGATIVE)
[2025-04-15 12:09] LABS: BASOPHILS ABSOLUTE AUTO 0.06 K/uL (0.00-0.10); BASOPHILS PERCENT AUTO 1.0 % (0.1-1.3); EOSINOPHILS PERCENT AUTO 0.3 % (0.0-5.4); IMMATURE GRAN PERCENT AUTO 0.2 % (0.0-0.7); LYMPHOCYTES ABSOLUTE AUTO 2.24 K/uL (0.8-3.3); LYMPHOCYTES PERCENT AUTO 35.9 % (11.4-47.7); MONOCYTES ABSOLUTE AUTO 0.83 K/uL (0.20-0.90); MONOCYTES PERCENT AUTO 13.3 % (3.3-12.6); NEUTROPHILS ABSOLUTE AUTO 3.08 K/uL (1.0-7.6); NEUTROPHILS PERCENT AUTO 49.3 % (40.0-78.1); PLATELET COUNT,PLT 503 K/uL (130-375); RED BLOOD CELL COUNT 3.55 M/uL (3.77-5.24); WHITE BLOOD CELL COUNT,WBC 6.2 K/uL (3.2-11.0)
[2025-04-15 12:10] LABS: EOSINOPHILS ABSOLUTE AUTO 0.02 K/uL (0.00-0.40); IMMATURE GRAN ABSOLUTE AUTO 0.01 K/uL (0.00-0.23)
[2025-04-15] MEDS: Ketorolac 30 MG/ML SDV IM ONE (12:14)
[2025-04-15 12:34] LABS: A/G RATIO 0.8 (1.2-2.2); ALANINE AMINOTRANSFERASE,ALT 18 U/L (12-78); ASPARTATE AMNIOTRANSFERASE,AST 18 U/L (15-37); BILIRUBIN TOTAL 0.2 mg/dL (0.2-1.0); BLOOD UREA NITROGEN,BUN 26 mg/dL (7-18); CARBON DIOXIDE,CO2 26 mmol/L (21-32); CHLORIDE,CL 102 mmol/L (100-108); CREATININE 0.5 mg/dL (0.6-1.0); EST CRCL DRUG DOSING (CG) 93.20 mL/min; ESTIMATED GFR 111 mL/min (>60); GLUCOSE RANDOM 105 mg/dL (74-106); POTASSIUM,K 3.7 mmol/L (3.6-5.2); PROTEIN TOTAL,TP 7.5 g/dL (6.4-8.2); SODIUM,NA 139 mmol/L (140-148)
== END 2025-04-15 13:01 | disposition home or self-care (01) ==
LOC: JP.ED 10:42
DX: G89.29 Other chronic pain (principal); R10.9 Unspecified abdominal pain; Z93.1 Gastrostomy status; I10 Essential (primary) hypertension; K21.9 Gastro-esophageal reflux disease without esophagitis; Z79.899 Other long term (current) drug therapy
CPT/HCPCS: 36415; 80053; 80305; 81001; 83605; 83690; 83735; 85025; 86140; 96372; 99284; J1790; J1885

== ENCOUNTER 2025-04-26 11:38 | Emergency (ER) | payer MEDICAID ==
[2025-04-26 11:56] VITALS: BP 115/74; PULSE 116
== END 2025-04-26 12:40 | disposition home or self-care (01) ==
LOC: JP.ED 11:38
DX: H69.93 Unspecified Eustachian tube disorder, bilateral (principal); J06.9 Acute upper respiratory infection, unspecified; K21.9 Gastro-esophageal reflux disease without esophagitis; Z79.899 Other long term (current) drug therapy
CPT/HCPCS: 99283

== ENCOUNTER 2025-05-12 15:26 | Emergency (ER) | payer MEDICAID ==
[2025-05-12 18:11] LABS: BASOPHILS ABSOLUTE AUTO 0.03 K/uL (0.00-0.10); BASOPHILS PERCENT AUTO 0.5 % (0.1-1.3); EOSINOPHILS ABSOLUTE AUTO 0.07 K/uL (0.00-0.40); EOSINOPHILS PERCENT AUTO 1.1 % (0.0-5.4); IMMATURE GRAN ABSOLUTE AUTO 0.02 K/uL (0.00-0.23); IMMATURE GRAN PERCENT AUTO 0.3 % (0.0-0.7); LYMPHOCYTES ABSOLUTE AUTO 1.97 K/uL (0.8-3.3); LYMPHOCYTES PERCENT AUTO 31.9 % (11.4-47.7); MONOCYTES ABSOLUTE AUTO 0.51 K/uL (0.20-0.90); MONOCYTES PERCENT AUTO 8.3 % (3.3-12.6); NEUTROPHILS ABSOLUTE AUTO 3.57 K/uL (1.0-7.6); NEUTROPHILS PERCENT AUTO 57.9 % (40.0-78.1); PLATELET COUNT,PLT 684 K/uL (130-375); RED BLOOD CELL COUNT 3.07 M/uL (3.77-5.24); WHITE BLOOD CELL COUNT,WBC 6.2 K/uL (3.2-11.0)
[2025-05-12 18:32] LABS: A/G RATIO 0.8 (1.2-2.2); ALANINE AMINOTRANSFERASE,ALT 19 U/L (12-78); ASPARTATE AMNIOTRANSFERASE,AST 16 U/L (15-37); BILIRUBIN TOTAL 0.2 mg/dL (0.2-1.0); BLOOD UREA NITROGEN,BUN 23 mg/dL (7-18); CARBON DIOXIDE,CO2 27 mmol/L (21-32); CHLORIDE,CL 101 mmol/L (100-108); CREATININE 0.4 mg/dL (0.6-1.0); EST CRCL DRUG DOSING (CG) 115.74 mL/min; ESTIMATED GFR 118 mL/min (>60); GLUCOSE RANDOM 87 mg/dL (74-106); POTASSIUM,K 3.9 mmol/L (3.6-5.2); PROTEIN TOTAL,TP 7.1 g/dL (6.4-8.2); SODIUM,NA 138 mmol/L (140-148)
[2025-05-12] MEDS: Ondansetron 4 MG/2 ML SDV IVPUSH ONE (19:27)
[2025-05-12 19:56] LABS: APPEARANCE,URINE SLIGHTLY CLOUDY (CLEAR); GLUCOSE,URINE NEGATIVE (NEGATIVE); OCCULT BLOOD,URINE SMALL (NEGATIVE)
[2025-05-12 20:04] LABS: SQUAMOUS EPITHELIAL CELLS,UR FEW /HPF; UROTHELIAL CELLS,URINE NOT SEEN /HPF
[2025-05-12 21:35] VITALS: BP 117/88; PULSE 81
== END 2025-05-12 22:06 | disposition home or self-care (01) ==
LOC: JP.ED 15:26
DX: N20.0 Calculus of kidney (principal); R31.9 Hematuria, unspecified; I10 Essential (primary) hypertension; E86.0 Dehydration; Z79.899 Other long term (current) drug therapy; Z90.49 Acquired absence of other specified parts of digestive tract
CPT/HCPCS: 36415; 80053; 81001; 83605; 83690; 83735; 85025; 86140; 87428; 96361; 96374; 96375; 96376; 99283; 99284; C1751; J1171; J2405; J7030